=== PATIENT | female | born 1960 | race Caucasian/White ===

== ENCOUNTER 2023-02-12 11:09 | Outpatient (CLI) | payer OTHER, SELFPAY ==
--- NOTE | ~2023-02-12 | XR_ITS ---
XR elbow LT min 3V 02/12/2023 11:56 Indication: Left elbow pain Procedure: 4 views left elbow Comparison: No prior studies for comparison. Findings: There is a chronic fracture/dislocation of the elbow with sideplate and screws transfixing a displaced ulnar. No significant soft tissue abnormality. No foreign bodies. 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 Reviewed, dictated and finalized at location L. 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
[2023-02-12 11:46] LABS: Basophils Absolute Auto 0.01 K/mm3 (0.00-0.10); Basophils Percent Auto 0.2 % (0.0-1.0); Eosinophils Absolute Auto 0.02 K/mm3 (0.02-0.50); Eosinophils Percent Auto 0.3 % (1.0-6.0); Hematocrit 36.7 % (35.0-49.0); Hemoglobin 11.6 g/dL (12.0-15.0); Immature Granulocyte Absolute 0.02 K/mm3 (0.00-0.00); Immature Granulocyte Percent A 0.3 % (0.0-0.0); Mean Corpuscular HGB Conc 31.6 g/dL (32.0-36.0); Mean Corpuscular Hemoglobin 26.5 pg (27.0-31.0); Mean Corpuscular Volume 83.8 fL (78.0-102.0); Monocytes Absolute Auto 0.48 K/mm3 (0.10-0.90); Monocytes Percent Auto 7.5 % (2.0-11.0); Neutrophils Absolute Auto 5.2 K/mm3 (1.7-7.2); Neutrophils Percent Auto 80.7 % (50.0-70.0); Platelet Count Result 165 K/mm3 (150-420); Red Blood Count 4.38 M/mm3 (4.20-5.40); Red Cell Distribution Width 15.9 % (11.6-14.4); White Blood Count 6.4 K/mm3 (4.8-10.8)
[2023-02-12 11:47] LABS: Appearance Urine Clear (Clear); Bilirubin Urine Negative (Negative); Blood Urine Negative (Negative); Color Urine Light Yellow (Yellow); Glucose Urine UA Negative (Negative); Ketones Urine Negative (Negative); Leukocyte Esterase Ur Negative (Negative); Nitrate Urine Negative (Negative); Protein Urine Negative (Negative); Urobilinogen Urine 0.2 mg/dL (0.2-1.0)
[2023-02-12 11:49] LABS: Add Urine Microscopic? NO
[2023-02-12 11:55] LABS: Creatinine Urine 29.84 mg/dL (40-278); MALB Creatinine Ratio 43.5 mg/g (0-30); Microalbumin Urine Random < 13.0 mg/L
[2023-02-12 12:00] LABS: Hemoglobin A1C 5.4 % (<5.7)
[2023-02-12 12:30] LABS: Alanine Aminotransferase 25 U/L (14-59); Albumin Level 3.1 g/dL (3.4-5.0); Alkaline Phosphatase 95 U/L (46-116); Anion Gap 5 mmol/L (8-16); Aspartate Amino Transferase 25 U/L (15-37); Bilirubin,Total 0.3 mg/dL (0.00-1.00); Blood Urea Nitrogen 19 mg/dL (7-18); Calcium 8.6 mg/dL (8.5-10.1); Carbon Dioxide 33 mmol/L (21-32); Chloride 104 mmol/L (98-108); Cholesterol 181 mg/dL (0-200); Creatine Kinase 184 U/L (26-192); Estimated Glomerular Filt Rate > 60; Glucose 82 mg/dL (70-99); HDL Direct 69 mg/dL (40-60); LDL Cholesterol Calculated 102 mg/dL (<130); Osmolality Calculated 295 mOsm/kg (285-295); Potassium 4.5 mmol/L (3.5-5.1); Sodium 142 mmol/L (136-145); Thyroid Stimulating Hormone 0.62 uIU/mL (0.36-3.74); Total Protein 6.6 g/dL (6.4-8.2); Triglycerides 52 mg/dL (0-150); Uric Acid 2.7 mg/dL (2.6-6.0)
== END 2023-02-12 11:10 | disposition home or self-care (01) ==
LOC: CHSLAB 11:16
PROVIDERS: PCP Family Medicine; Visit Provider Family Medicine
DX: E03.9 Hypothyroidism, unspecified (principal); E78.2 Mixed hyperlipidemia; R73.9 Hyperglycemia, unspecified; M10.00 Idiopathic gout, unspecified site; M25.522 Pain in left elbow; M21.822 Other specified acquired deformities of left upper arm
CPT/HCPCS: 36415; 73080; 80053; 80061; 81003; 82043; 82550; 83036; 84443; 84550; 85025

== ENCOUNTER 2023-03-09 08:34 | Emergency (ER) | payer OTHER, SELFPAY ==
[2023-03-09] VITALS (59 sets, daily range): BP systolic 67–158; BP diastolic 12–99; PULSE 107–140; RESP 20–53; TEMP 36.7–36.9; O2SAT 86–100
--- NOTE | ~2023-03-09 | CT_ITS ---
EXAMINATION: CTA chest abdomen pelvis DATE: 03/09/2023 10:44 INDICATION: Dyspnea, elevated d-dimer. Distended abdomen and abdominal pain TECHNIQUE: Computed tomography angiography (CTA) of the chest, abdomen and pelvis was performed with 100 mL Omnipaque-350 intravenous contrast timed to evaluate the pulmonary arteries. Coronal maximum i ntensity projection 3D-reconstructions were created by the technologist. Automated exposure control a nd iterative reconstruction technique were employed. Exam dose: 420.61 mGy-cm total exam DLP. COMPARISON: 03/09/2023 portable AP chest FINDINGS: There is diagnostic contrast enhancement of the pulmonary arteries and no evidence of pulmo nary embolism. Mild bilateral apical pulmonary scarring Minimal tree-in-bud infiltrate in the right upper lobe. Minimal dependent atelectasis in the lower jimbo ng zones, left greater than right. Normal heart size. No pericardial or pleural effusion. No thoracic aortic aneurysm or dissection. No hilar or mediastinal mass lesion or lymphadenopathy. There is extensive fluid in the thoracic esophagus, the middle and distal thirds of the esophagus com pletely filled with fluid, with an air-fluid level in the upper third of the esophagus. Moderate sized hiatal hernia. Status post cholecystectomy. No hepatic, splenic, pancreatic, and adrenal or suspicious renal space-occupying mass lesion is evide nt. There is anterior scarring of the upper pole right kidney and associated approximately 2.4 mm calcifi cation. Approximately 5 mm upper pole right renal cyst. Small focal scar at the posterior lateral lower pole of the left kidney. No hydronephrosis. No abdominal aortic aneurysm. No intraperitoneal or retroperitoneal or pelvic mass lesion or adenopat hy is evident. There is prominent distention of the urinary bladder. No bladder wall thickening is evident. The uter us and adnexal areas appear unremarkable. There is a prominent amount of fecal material in the colon and prominent gaseous distention in particular of the right and transverse colon and splenic flexure. There are fluid levels in the right colon. There are small bowel air-fluid levels. There is mild ascites with fluid in the paracolic gutters and dependent pelvis primarily. No suspicious osteolytic or osteoblastic lesions are noted. IMPRESSION: No evidence of pulmonary embolism Minimal tree-in-bud infiltrate of right upper lobe Prominent fluid distention of the esophagus Moderate hiatal hernia Status post cholecystectomy Mild bilateral renal scarring, greater on the right Fluid levels in the small and large bowel, suggesting enterocolitis No apparent bowel obstruction or any evidence of intraperitoneal free air Mild ascites Reviewed, dictated and finalized at Location A. Reviewed, dictated and finalized at location A. NDER HONER
--- NOTE | ~2023-03-09 | CT_ITS ---
EXAMINATION: CT brain wo con DATE: 03/09/2023 10:43 INDICATION: Overdose. Altered mental status. TECHNIQUE: Computed tomography (CT) of the head was performed without intravenous contrast. The mA wa s adjusted according to patient size. Iterative reconstruction technique was employed. Exam dose: 83 2.33 mGy-cm total exam DLP. COMPARISON: None FINDINGS: Bilateral carotid siphon internal carotid artery calcifications. No intracranial mass lesion or hemorrhage or cerebrovascular accident, midline shift or mass effect i s detected. Normal ventricular size. No subdural or epidural hematoma. The frontal sinuses are not developed. The paranasal sinuses and mastoid air cells are otherwise unre markable. No fracture or bone destruction of the cranial vault. IMPRESSION: Cerebral atherosclerosis No skull fracture or acute intracranial finding Reviewed, dictated and finalized at Location A. Reviewed, dictated and finalized at location A. JEWELRY SALES ASSOCIATE
--- NOTE | ~2023-03-09 | XR_ITS ---
XR chest 1V portable DATE: 03/09/2023 09:46 INDICATION: Dyspnea. Elevated d-dimer. TECHNIQUE: Portable AP chest on 03/09/2023 0946 hours COMPARISON: 03/09/2023 CTA chest abdomen pelvis is not available at this time. FINDINGS: Normal heart size. No hilar or mediastinal enlargement. There may be minimal infiltrate or atelectasis at the lung bases but the lungs otherwise appear clear . No pleural effusion or pulmonary vascular congestion or pneumothorax is detected. Mild thoracic levoscoliosis. There is evidence of vertebroplasty at T10 level. Status post cholecystectomy. IMPRESSION: Possible minimal infiltrate or atelectasis at the lung bases; otherwise no active cardiop ulmonary disease Reviewed, dictated and finalized at location A. STANT FILM EDITOR IMPRESSION: Possible minimal infiltrate or atelectasis at the lung bases; other powell no active cardiopulmonary disease
--- NOTE | 2023-03-09 08:44 | ECG_ITS ---
Measurements Intervals [place] Rate: 114 P: 57 TX: 120 QRS: 73 QRSD: 72 T: 66 QT: 316 QTc: 437 Interpretive Statements SINUS TACHYCARDIA POSSIBLE LEFT ATRIAL ENLARGEMENT [-0.1mV P-WAVE IN V1/V2] ABNORMAL RHYTHM ECG NO PREVIOUS ECG AVAILABLE FOR COMPARISON Electronically Signed On 03-09-2023 9:13:14 BATCH ANALYST by Leann Hamm M.D.
--- NOTE | 2023-03-09 08:45 | PC.NURSE ---
after patient became more awake she was able to tell RN that she took her norco last night and this morning, per patient's medication administration list it just shows she recived the medication last night.
[2023-03-09] MEDS: ONDANSETRON INJ 4 MG/2 ML VIAL IV PUSH (08:47)
[2023-03-09] MEDS: NALOXONE HCL INJ 2 MG/2 ML AMP IV PUSH ×2 (08:47→10:48)
[2023-03-09] MEDS: SODIUM CHLORIDE 0.9% IV 1,000 ML 999 ML IV CONT ×3 (08:48→12:30)
--- NOTE | 2023-03-09 09:00 | PC.NURSE ---
Patient asked for urine, states she cannot pee at this time.
[2023-03-09 09:33] LABS: Basophils Absolute Auto 0.07 K/mm3 (0.00-0.10); Basophils Percent Auto 0.4 % (0.0-1.0); Eosinophils Percent Auto 0.5 % (1.0-6.0); Hematocrit 46.1 % (35.0-49.0); Hemoglobin 13.6 g/dL (12.0-15.0); Immature Granulocyte Absolute 0.08 K/mm3 (0.00-0.00); Immature Granulocyte Percent A 0.4 % (0.0-0.0); Lymphocytes Absolute Auto 0.66 K/mm3 (1.10-4.50); Lymphocytes Percent Auto 3.5 % (18.0-42.0); Mean Corpuscular HGB Conc 29.5 g/dL (32.0-36.0); Mean Corpuscular Hemoglobin 26.5 pg (27.0-31.0); Mean Corpuscular Volume 89.9 fL (78.0-102.0); Mean Platelet Volume 11.3 fl (9.2-11.8); Monocytes Percent Auto 9.5 % (2.0-11.0); Neutrophils Absolute Auto 16.1 K/mm3 (1.7-7.2); Neutrophils Percent Auto 85.7 % (50.0-70.0); Platelet Count Result 217 K/mm3 (150-420); Red Blood Count 5.13 M/mm3 (4.20-5.40); Red Cell Distribution Width 15.6 % (11.6-14.4); White Blood Count 18.9 K/mm3 (4.8-10.8)
[2023-03-09 09:37] LABS: Base Excess ABG -6.4 mmol/L (0-2); Device NASAL CANNULA; HCO3 ABG 19.5 mmol/L (23-29); Modified Allen's Test Pass; Oxygen Content ABG 18.4 %vol (16.0-22.0); PCO2 ABG 40.5 mmHg (35-45); PO2 ABG 144.1 mmHg (80-90); Site Drawn RIGHT RADIAL; Total Hemoglobin 13.6 g/dL (12.0-18.0)
[2023-03-09 09:53] LABS: Alanine Aminotransferase 27 U/L (14-59); Albumin Level 2.1 g/dL (3.4-5.0); Alkaline Phosphatase 65 U/L (46-116); Anion Gap 8 mmol/L (8-16); Aspartate Amino Transferase 45 U/L (15-37); Bilirubin,Total 0.4 mg/dL (0.00-1.00); Blood Urea Nitrogen 31 mg/dL (7-18); Calcium 8.4 mg/dL (8.5-10.1); Carbon Dioxide 20 mmol/L (21-32); Chloride 105 mmol/L (98-108); Estimated Glomerular Filt Rate 37; Glucose 131 mg/dL (70-99); NT Pro B Type Natriuretic Pept 606 pg/mL (0-125); Osmolality Calculated 284 mOsm/kg (285-295); Potassium 4.8 mmol/L (3.5-5.1); Sodium 133 mmol/L (136-145); Total Protein 5.8 g/dL (6.4-8.2); Troponin I 5.5 ng/L (0.00-60.4)
[2023-03-09 09:54] LABS: INR 1.1; Partial Thromboplastin Time 30.8 SEC (23.90-30.70)
[2023-03-09 09:56] LABS: D Dimer 28.18 mg/L (0.19-0.50)
--- NOTE | 2023-03-09 09:56 | PC.NURSE ---
lab reports ddimer of 28.18. ERP made aware.
--- NOTE | 2023-03-09 10:00 | PC.NURSE ---
patient placed on bedside commode, able to ambulate without difficulty, unable to urinate at this time.
[2023-03-09 10:02] LABS: Lactic Acid Reflex 3.5 mmol/L (0.4-2.0)
[2023-03-09 10:13] LABS: Influenza A QL RT-PCR Negative (Negative); Influenza B QL RT-PCR Negative (Negative); RSV RNA, RT-PCR Negative (Negative); SARS-CoV-2 RNA PCR Negative (Negative)
--- NOTE | 2023-03-09 10:18 | PC.NURSE ---
Patient taken down to Ct.
[2023-03-09 10:31] LABS: Acetaminophen < 2 ug/mL (10-30)
[2023-03-09 10:32] LABS: Thyroid Stimulating Hormone 2.49 uIU/mL (0.36-3.74)
--- NOTE | 2023-03-09 10:54 | PC.NURSE ---
Addendum entered by Courtney De León RN 03/09/23 10:55: Note to be back timed to 1045 when patient arrived back in room. Original Note: Patient back in room from Ct, sleepy at this time erp at bedside states to give another 2mg iv narcan, order will be placed, 2nd liter of NS to be started, patient's blood pressure is back to 149/74.
--- NOTE | 2023-03-09 12:07 | ED.OVERDOSE ---
HPI - Overdose General Chief Complaint: Overdose Stated Complaint: Unresponsive Time Seen by Provider: 03/09/23 08:43 Source: patient and EMS Mode of arrival: EMS Limitations: altered mental status History of Present Illness HPI Narrative: this is 62 year female brought in by EMS decreased responsiveness with dyspnea depression has a history of back took hydrocodone, the patient received Narcan and via EMS. Initial saturations were in the 80s and was non-rebreather and initial blood pressure readings were 90 systolic. Patient is awake and alert and follows commands and knows where she is located, states that she has chronic back pain and took hydrocodone earlier this morning. She has some abdominal pain and distension with no dysuria no hematuria no chest pain. The patient albuterol and tobacco abuse are suggesting that she has COPD, has a history of IBS is in currently on Bentyl and history of hypothyroidism with chronic back pain that she takes hydrocodone. Patient has a mass psych history and is on citalopram, diazepam Lamictal. central line placed femoral , and intubation successful 1st pass with 24cm the at the teeth. MD complaint: accidental overdose Onset (ago): hour(s) Related Data Home Medications Medication Instructions Recorded Confirmed acetaminophen 325 mg tablet 650 mg PO Q4-6H PRN Pain 03/09/23 03/09/23 albuterol sulfate 90 mcg/actuation 2 puff inhalation Q4-6H PRN 03/09/23 03/09/23 aerosol inhaler Shortness Of Breath Or Wheezing budesonide-formoterol HFA 80 2 puff inhalation BID 03/09/23 03/09/23 mcg-4.5 mcg/actuation aerosol inhaler (Symbicort) citalopram 10 mg tablet 10 mg PO DAILY 03/09/23 03/09/23 citalopram 20 mg tablet 20 mg PO DAILY 03/09/23 03/09/23 diazepam 5 mg tablet 5 mg PO QID 03/09/23 03/09/23 dicyclomine 20 mg tablet 10 mg PO DAILY 03/09/23 03/09/23 dicyclomine 20 mg tablet 20 mg PO TID PRN Abdominal Pain 03/09/23 03/09/23 food supplemt, lactose-reduced 1 ea PO TID 03/09/23 03/09/23 0.04 gram-1.05 kcal/mL oral liquid (Ensure Original) gabapentin 300 mg capsule 300 mg PO HS 12/23/23 12/23/23 hydrocodone 10 mg-acetaminophen 1 tablet PO TID PRN Pain 03/09/23 03/09/23 325 mg tablet hydroxyzine pamoate 25 mg capsule 25 mg PO QID PRN Anxiety 03/09/23 03/09/23 lamotrigine 100 mg tablet 100 mg PO BID 03/09/23 03/09/23 levothyroxine 50 mcg tablet 50 mcg PO DAILY 03/09/23 03/09/23 meclizine 25 mg tablet 25 mg PO TID PRN Dizziness Or 03/09/23 03/09/23 Vertigo naproxen 500 mg tablet 500 mg PO BID PRN Pain 03/09/23 03/09/23 omeprazole 10 mg capsule,delayed 10 mg PO DAILY 03/09/23 03/09/23 release solifenacin 5 mg tablet 5 mg PO DAILY 03/09/23 03/09/23 tizanidine 4 mg tablet 4 mg PO TID PRN Muscle Spasm 03/09/23 03/09/23 Allergies Allergy/AdvReac Type Severity Reaction Status Date / Time morphine Allergy Unknown Verified 03/09/23 08:51 Sulfa (Sulfonamide Allergy Unknown Verified 03/09/23 08:51 Antibiotics) Review of Systems Review of Systems: All systems reviewed & are unremarkable except as noted in HPI and below PMFSH Past Medical History Medical History Chronic back pain COPD (chronic obstructive pulmonary disease) Depression IBS (irritable bowel syndrome) Exam Const: General: alert and ill appearing Nutritional Appearance: thin Limitations: altered mental status and physical limitations HENMT: Head: normal to inspection Eyes: Conjunctivae: conjunctivae normal Pupils: Equal, round and reactive pupils present EOM: EOMs intact bilaterally Neck: Neck: normal visual inspection, no lymphadenopathy and no meningeal signs Chest: Chest palpation & inspection: normal inspection of the chest Resp: Effort & Inspection: normal respiratory effort Auscultation: clear to auscultation bilaterally Cardio: Rate: tachycardic Rhythm: regular rhythm GI: GI Palp: Yes Soft to palpation and Yes Tenderness to palpation
[2023-03-09 12:30] LABS: Reflex Lactic Acid Yes or No Add Lactic
[2023-03-09] MEDS: IPRATROPIUM 0.5 MG/ALBUTEROL SULFATE 2.5 MG AMPUL.NEB 3 ML INHALATION (12:30)
--- NOTE | 2023-03-09 12:39 | PC.NURSE ---
ERP on phone with commercial counsel at [place].
[2023-03-09 13:16] LABS: Lactic Acid 3.1 mmol/L (0.4-2.0)
[2023-03-09] MEDS: AZITHROMYCIN 500 MG/NS 250 ML 500 MG/250 ML BAG 250 MG IVPB (13:40)
[2023-03-09 13:59] LABS: Appearance Urine Clear (Clear); Bilirubin Urine Negative (Negative); Blood Urine Negative (Negative); Color Urine Yellow (Yellow); Glucose Urine UA Negative (Negative); Ketones Urine Negative (Negative); Leukocyte Esterase Ur Negative LEU/UL (Negative); Nitrate Urine Negative (Negative); Protein Urine Trace (Negative); pH Urine 6.5 (5.0-8.0)
[2023-03-09 14:05] LABS: Add Urine Microscopic? YES; Bacteria Urine Rare /hpf; RBC Urine None seen /hpf (0-2); Squamous Epithelial Cell Urine Rare /hpf (Few); WBC Urine None seen /hpf (0-3)
[2023-03-09 14:07] LABS: Amphetamine Screen Urine Negative (Negative); Barbiturate Screen Urine Negative (Negative); Benzodiazepines Screen Urine Negative (Negative); Cannabinoid Screen Urine Negative (Negative); Cocaine Screen Urine Negative (Negative); Methadone Screen Urine Negative (Negative); Opiate Screen Urine Positive (Negative); Phencyclidine Screen Urine Negative (Negative)
--- NOTE | 2023-03-09 14:35 | PC.NURSE ---
Patient intubated with size 7 tube and marked 24 at the lip.
--- NOTE | 2023-03-16 13:05 | PC.NURSE ---
blood culture noted. no growth after 5 days
== END 2023-03-09 14:45 | disposition short-term general hospital (02) ==
PROVIDERS: Emergency Provider Emergency Medicine
DX: R06.03 Acute respiratory distress (principal); T50.901A Poisoning by unspecified drugs, medicaments and biological substances, accidental (unintentional), initial encounter; I95.9 Hypotension, unspecified; G89.29 Other chronic pain; M54.9 Dorsalgia, unspecified; K58.9 Irritable bowel syndrome, unspecified; J44.9 Chronic obstructive pulmonary disease, unspecified; Z79.891 Long term (current) use of opiate analgesic; Z79.899 Other long term (current) drug therapy; Z20.822 Contact with and (suspected) exposure to COVID-19
CPT/HCPCS: 31500; 36415; 36556; 36600; 70450; 71045; 71275; 74174; 80053; 80307; 81001; 82805; 83605; 83735; 83880; 84443; 84484; 85025; 85380; 85610; 85730; 87040; 87637; 93005; 94640; 96361; 96365; 96367; 96375; 96376; 99285; C1751; J0456; J0696; J2310; J2405; J7030; Q9967

== ENCOUNTER 2023-03-09 15:59 | Inpatient (IN) | payer OTHER, SELFPAY ==
[2023-03-09] VITALS (40 sets, daily range): BP systolic 54–158; BP diastolic 19–139; PULSE 132–152; RESP 24–33; TEMP 36.8–37.9; O2SAT 91–100; BMI 19.5
--- NOTE | ~2023-03-09 | CT_ITS ---
EXAMINATION: CT abdomen pelvis wo con DATE: 03/09/2023 17:30 INDICATION: Abdominal distention TECHNIQUE: Computed tomography (CT) of the abdomen and pelvis was performed without intravenous contr ast. The dose-length product was 250.43 mGy-cm. Automated exposure control and iterative reconstructi on technique were employed. COMPARISON: CT dated 03/09/2023. FINDINGS: Heart size normal. Dependent atelectasis. NG tube in the stomach. Persistent fecal impactio n of the colon which is distended. There is no free air in the lower abdomen extending into the ingui nal canal, suspicious for bowel perforation. Sosa catheter present in decompressed bladder. There is atherosclerosis of the aorta without aneurysm. No lymphadenopathy. Status post cholecystectomy. The liver, spleen, pancreas, adrenal glands and kidneys are unremarkable . No acute osseous abnormality. No acute osseous abnormality. IMPRESSION: 1. Interval development of free air adjacent to the cecum, suspicious for bowel perforation. 2: Fecal impaction of the colon without obstruction. 3: Developing small pleural effusions, left greater than right. Dr. Cruz Pittman discussed with Tabby Ocasio, the ICU director at 03/09/2023 17:37 ADOBE CQ DEVELOPER. Reviewed, dictated and finalized at location A. E CQ DEVELOPER
--- NOTE | ~2023-03-09 | XR_ITS ---
XR chest 1V portable DATE: 03/11/2023 05:39 INDICATION: Dyspnea, intubation TECHNIQUE: Portable AP chest on 03/11/2023 at 0522 hours COMPARISON: 03/06/2023 portable AP chest FINDINGS: ET tube 6 cm above matteo. NG tube in stomach, proximal side-port approximately 3.5 cm to 4 cm distal to the diaphragmatic hiatus. Bilateral hyperinflation suggesting obstructive airways disease. There is mild pulmonary vascular congestion and redistribution, mild bilateral pulmonary infiltrates and small bilateral pleural effusions, left greater than right. There is mild improvement of left low er lobe infiltrate or atelectasis since 03/06/2023 IMPRESSION: Mild improvement of left lower lobe infiltrate or atelectasis since 03/06/2023 Reviewed, dictated and finalized at location A. ULTING MANAGER
--- NOTE | ~2023-03-09 | XR_ITS ---
EXAMINATION: XR chest 1V portable DATE: 03/17/2023 05:43 INDICATION: Mechanical ventilation. TECHNIQUE: A single frontal view of the chest was obtained. COMPARISON: Chest single view 03/16/2023 FINDINGS: There is mild scarring at the lung apices. There are small pleural effusions. There are air space opacities in right lower lung zone and left mid and lower lung zones. No pneumothorax. The hear t size is normal. The endotracheal tube tip is 3.5 cm above the matteo. The nasogastric tube tip is i n the stomach. There are surgical clips and skin vineet overlying the abdomen. IMPRESSION: 1. Airspace opacities in right lower lung zone and left mid and lower lung zones with worsening on th e left, consistent with atelectasis versus pneumonia. 2. Stable small pleural effusions. Reviewed, dictated and finalized at location A. RINTENDENT OF SCHOOLS IMPRESSION: 1. Airspace opacities in right lower lung zone and left mid and lower lung zone s with worsening on the left, consistent with atelectasis versus pneumonia. 2. Stable small pleural effusions.
--- NOTE | ~2023-03-09 | CT_ITS ---
EXAMINATION: CT abdomen pelvis w con DATE: 03/28/2023 13:56 INDICATION: Leukocytosis, necrotic large bowel following total colectomy TECHNIQUE: Computed tomography (CT) of the abdomen and pelvis was performed with 100 CC Omnipaque 350 intravenous contrast. Automated exposure control and iterative reconstruction technique were employe d. Exam dose: 234.24 mGy-cm total exam DLP. COMPARISON: 03/24/2023 CT abdomen pelvis 03/27/2023 obstructive series FINDINGS: Bilateral prominent dependent lower lobe atelectasis and/or consolidation. Bilateral pleura l effusions, left greater than right. NG tube tip in distal stomach. Status post cholecystectomy. The liver, spleen, pancreas, and adrenal glands are unremarkable except for hepatic steatosis. No hiwot e duct or pancreatic duct dilatation. Normal morphology of the adrenal glands. No left renal mass lesion. 5 mm upper pole right renal cyst. Mild upper pole right renal scarring. No urinary tract calculus or hydroureteronephrosis is evident. There is a Sosa catheter in air within the urinary bladder lumen. There is mild ascites. There is fluid in the endometrial cavity of the uterus. Partial colectomy. Right ileostomy. There is diminished distention of the small bowel since 03/24/2023 IMPRESSION: Diminished small bowel dilatation since 03/24/2023 Status post colectomy, ileostomy Mild ascites NG tube in distal stomach 5 mm upper pole right renal cyst Reviewed, dictated and finalized at Location A. Reviewed, dictated and finalized at location L. OR FRONT END DEVELOPER
--- NOTE | ~2023-03-09 | XR_ITS ---
EXAMINATION: XR chest 1V portable DATE: 03/16/2023 05:32 INDICATION: Respiratory failure. TECHNIQUE: A single frontal view of the chest was obtained. COMPARISON: Chest single view 03/15/2023, CT abdomen and pelvis 03/09/2023 FINDINGS: There is mild scarring at the lung apices. There is a diffuse interstitial pattern in the l ungs. There are airspace opacities in right middle lobe and left lower lobe. There are small pleural effusions. No pneumothorax. The heart size is normal. The endotracheal tube tip is 3.3 cm above the c dejon. The nasogastric tube tip is in the stomach. Skin vineet overlie the abdomen. Surgical clips i n the right upper quadrant are likely from cholecystectomy. IMPRESSION: 1. Mild pulmonary edema. 2. Airspace opacities in right middle lobe and left lower lobe, consistent with atelectasis versus pn eumonia. 3. Stable small pleural effusions. Reviewed, dictated and finalized at location A. STRIAL GAS SERVICER SUPERVISOR IMPRESSION: 1. Mild pulmonary edema. 2. Airspace opacities in right middle lobe and left lower lobe, consistent with atelectasis versus pneumonia. 3. Stable small pleural effusions.
--- NOTE | ~2023-03-09 | XR_ITS ---
XR chest ET placement 03/09/2023 16:12 Indication: Endotracheal tube placement Procedure: AP portable chest Comparison: 03/09/2023 Findings: Endotracheal tube tip 2.3 cm above the matteo. NG tube tip at the level of the diaphragm ne ar the expected location of the GE junction. Left basilar consolidation may represent atelectasis or developing pneumonia. Subtle infiltrates of the right mid thorax. No acute osseous abnormality. There are cholecystectomy clips. Impression: 1: Developing infiltrates of the right mid and left lower lung, suspicious for pneumonia. Reviewed, dictated and finalized at location A. RRAL CLERK Impression: 1: Developing infiltrates of the right mid and left lower lung, suspicious for pneumonia.
--- NOTE | ~2023-03-09 | XR_ITS ---
EXAMINATION: XR chest 1V portable DATE: 03/25/2023 18:45 INDICATION: Increasing shortness of breath TECHNIQUE: frontal view of the chest was obtained. COMPARISON: Chest radiograph dated 03/17/[address] abdomen and pelvis dated 03/24/2023 FINDINGS: Eventration along the medial right hemidiaphragm. Mild opacities at the left lower lung zone and at t he medial right lung base. No pulmonary edema, pleural effusion or pneumothorax. The cardiomediastina l silhouette is normal. Surgical clips and skin vineet in the upper abdomen. IMPRESSION: 1. Mild opacities at the bilateral lower lung zones which could represent pneumonia or more likely at electasis given appearance on prior CT. Reviewed, dictated and finalized at location A. ICAL PLANT MANAGER IMPRESSION: 1. Mild opacities at the bilateral lower lung zones which could represent pneum onia or more likely atelectasis given appearance on prior CT.
--- NOTE | ~2023-03-09 | CT_ITS ---
CT of the Abdomen and Pelvis: Indication: Abdominal pain, status post colectomy Technique: 2.5 mm axial scans were obtained through the abdomen and pelvis following intravenous adm inistration of 100 cc of Omnipaque 350. Dose reduction technique was used on this scan by utilizing a utomated exposure control and iterative reconstruction technique. The dose-length product (DLP) was 2 19.84 mGy-cm. COMPARISON: 03/09/2023 Findings: Scans through the lung bases demonstrated small bilateral pleural effusions with bibasilar atelectatic change.. The liver, spleen, pancreas, adrenals and left kidney are within normal limits. Probable mild right h ydronephrosis present. Cholecystectomy clips are present. No evidence of aortic aneurysm. No lymphad enopathy. Patient is status post extensive colectomy, with ileostomy present. There is extensive small bowel di latation as well as distention of the stomach. Transition point present in the right mid abdomen (axi al image 99). There is moderate abdominopelvic ascites with diffuse mesenteric edema. Images through the pelvis were performed. Urinary bladder is markedly distended, with small intralumi nal bubble of air. There is apparent fluid within the endometrial cavity versus prominent endometrium .. Impression: Status post interval colectomy with ileostomy present. Extensive small bowel dilatation and gastric d istention without transition point at the right mid abdomen, compatible with small bowel obstruction. Moderate abdominopelvic ascites and diffuse mesenteric edema. Small bilateral pleural effusions, with bibasilar atelectatic change. Probable mild right hydronephrosis. Fluid in the endometrial cavity versus prominent endometrium. Correlate clinically. Consider pelvic u ltrasound as indicated. Reviewed, dictated and finalized at [facility]. FABRIC CUTTER Impression: Status post interval colectomy with ileostomy present. Extensive small bowel di latation and gastric distention without transition point at the right mid abdom en, compatible with small bowel obstruction. Moderate abdominopelvic ascites and diffuse mesenteric edema. Small bilateral pleural effusions, with bibasilar atelectatic change. Probable mild right hydronephrosis. Fluid in the endometrial cavity versus prominent endometrium. Correlate clinica lly. Consider pelvic ultrasound as indicated.
--- NOTE | ~2023-03-09 | XR_ITS ---
XR chest ET placement, XR abdomen gastric tube rechec 03/09/2023 16:16 Indication: Endotracheal and NG tubes repositioning Procedure: AP portable chest and limited portable KUB Comparison: 03/09/2023 Findings: Endotracheal tube tip 4 cm above the matteo. Stable bilateral airspace disease, suspicious for pneumonia. Possible small left effusion. No pneumothorax. NG tube has been advanced into the stomach. Impression: 1: Persistent patchy bilateral airspace disease, compatible with pneumonia. Reviewed, dictated and finalized at location A. ESSIONAL WRESTLER Impression: 1: Persistent patchy bilateral airspace disease, compatible with pneumonia. Impression: 1: Persistent patchy bilateral airspace disease, compatible with pneumonia.
--- NOTE | ~2023-03-09 | XR_ITS ---
XR chest 1V portable DATE: 03/10/2023 05:47 INDICATION: Intubation. Abdominal surgery. TECHNIQUE: Portable AP chest on 03/06/2023 at 0513 hours COMPARISON: 03/09/2023 portable AP chest at 1612 hours 03/09/2029 portable AP chest at 0946 hours FINDINGS: Tip of ET tube is 6.3 cm above matteo; ideal range is 2-5 cm. NG tube in body of stomach, proximal side-port approximately 3.5 cm beyond the diaphragmatic hiatus. Bilateral hyperinflation. There are bilateral Sadaf B-lines, not present yesterday at 0946 hours, consistent with pulmonary in terstitial edema. Slight bilateral pleural effusions are suggested. Mild infiltrate or atelectasis is noted in the right mid to upper and bilateral lower lungs, most prominent left lower lobe. Normal heart size. Diffuse osteopenia. Postoperative change of the abdomen is noted. IMPRESSION: Pulmonary interstitial edema, patchy bilateral pulmonary infiltrates and/atelectasis ET tube tip 6.3 cm above matteo; ideal range is 2-5 cm NG tube in stomach Reviewed, dictated and finalized at location A. AGER IMPRESSION: Pulmonary interstitial edema, patchy bilateral pulmonary infiltrate s and/atelectasis ET tube tip 6.3 cm above matteo; ideal range is 2-5 cm NG tube in stomach
--- NOTE | ~2023-03-09 | XR_ITS ---
XR abdomen gastric tube insert DATE: 03/27/2023 15:46 INDICATION: NG tube placement TECHNIQUE: Portable AP view on 03/27/2023 at 1539 hours COMPARISON: None FINDINGS: There is a nasogastric tube within the body of the stomach, the proximal side-port approxim ately 9.5 cm distal to the diaphragmatic hiatus. Cervical ribs, right upper quadrant likely due to cholecystectomy. Skin vineet overlie the mid abdom en. IMPRESSION: NG tube in body of stomach Reviewed, dictated and finalized at Location A. Reviewed, dictated and finalized at location B. MARKETER SUPERVISOR IMPRESSION: NG tube in body of stomach
--- NOTE | ~2023-03-09 | XR_ITS ---
EXAMINATION: XR chest 1V portable DATE: 03/13/2023 06:05 INDICATION: Intubation. TECHNIQUE: A single frontal view of the chest was obtained. COMPARISON: Chest single view 03/12/2023 FINDINGS: There are airspace opacities in all lung zones bilaterally, right worse than left. There ar e small pleural effusions. No pneumothorax. The heart size is normal. The endotracheal tube tip is 4. 4 cm above the matteo. The nasogastric tube tip is in the stomach. IMPRESSION: 1. Stable diffuse lung disease, right worse than left, consistent with pneumonia. 2. Stable small pleural effusions. Reviewed, dictated and finalized at location E. SCHOOL PHYSICAL EDUCATION TEACHER IMPRESSION: 1. Stable diffuse lung disease, right worse than left, consistent with pneumoni a. 2. Stable small pleural effusions.
--- NOTE | ~2023-03-09 | XR_ITS ---
EXAM: XR abdomen gastric tube insert DATE: 03/27/2023 17:32 HISTORY: NG placemenT . COMPARISON: 03/27/2023 at 3:39 PM. FINDINGS: Atelectasis/scarring in the lung bases. NG tube, tip and side port project over the stomac h. Midline surgical skin vineet. Cholecystectomy clips. Normal bowel gas pattern. No organomegaly. N o abnormal abdominal calcification. Regional bones and soft tissues normal for age. IMPRESSION: NG tube, in good position. Reviewed, dictated and finalized at location K. CTOR E LEARNING IMPRESSION: NG tube, in good position.
--- NOTE | ~2023-03-09 | XR_ITS ---
EXAMINATION: XR chest 1V portable DATE: 03/12/2023 05:51 INDICATION: Intubation. TECHNIQUE: A single frontal view of the chest was obtained. COMPARISON: Chest single view 03/11/2023, CT chest 03/09/2023 FINDINGS: There is mild scarring at the lung apices. There are airspace opacities in all right lung z ones. There are airspace opacities in left lower lobe. There are small pleural effusions. No pneumoth orax. The heart size is normal. The endotracheal tube tip is 2.9 cm above the matteo. The nasogastric tube tip is in the stomach. IMPRESSION: 1. Worsened airspace opacities in right lung and left lower lung zone, consistent with atelectasis ve rsus pneumonia. 2. Small pleural effusions. Reviewed, dictated and finalized at location E. FACTURING SCHEDULER IMPRESSION: 1. Worsened airspace opacities in right lung and left lower lung zone, consiste nt with atelectasis versus pneumonia. 2. Small pleural effusions.
--- NOTE | ~2023-03-09 | XR_ITS ---
EXAMINATION: XR chest 1V portable DATE: 03/14/2023 05:32 INDICATION: Respiratory failure. TECHNIQUE: A single frontal view of the chest was obtained. COMPARISON: Chest single view 03/13/2023, chest CT 03/09/2023 FINDINGS: There is mild scarring at the lung apices. There are airspace opacities in right lung and l eft lower lung zone. There is a small left pleural effusion. No pneumothorax. The heart size is patric l. There is a moderate-sized hiatal hernia. The endotracheal tube tip is 5.0 cm above the matteo. The nasogastric tube tip is beyond the inferior margin of the radiograph, but at least to the stomach. IMPRESSION: 1. Stable airspace opacities in right lung and left lower lung zone, consistent with pneumonia versus asymmetric pulmonary edema. 2. Stable small left pleural effusion. 3. Moderate-sized hiatal hernia. Reviewed, dictated and finalized at location E. GATION SUPERVISOR
--- NOTE | ~2023-03-09 | XR_ITS ---
EXAMINATION: XR chest 1V portable DATE: 03/15/2023 05:54 INDICATION: Respiratory failure. TECHNIQUE: A single frontal view of the chest was obtained. COMPARISON: Chest single view 03/14/2023 FINDINGS: There are small pleural effusions. There is a diffuse interstitial pattern in the lungs. Th ere are airspace opacities in the perihilar regions. No pneumothorax. The heart size is normal. The e ndotracheal tube tip is 2.8 cm above the matteo. The nasogastric tube tip is in the stomach. Skin sta ples overlie the abdomen. Surgical clips in the right upper quadrant are likely from cholecystectomy. IMPRESSION: 1. Stable diffuse lung disease, likely moderate pulmonary edema. 2. Stable small pleural effusions. Reviewed, dictated and finalized at location A. F APPRAISER
--- NOTE | ~2023-03-09 | XR_ITS ---
EXAMINATION: XR abdomen obstructive series DATE: 03/27/2023 13:31 INDICATION: Nausea and vomiting. TECHNIQUE: Upright and supine views of the abdomen on 3 radiographs were obtained. COMPARISON: CT abdomen and pelvis 03/24/2023 FINDINGS: The stomach and proximal duodenum are distended. The colon is normal in caliber. Skin stapl es are noted. Surgical clips in the right upper quadrant are likely from cholecystectomy. No free int raperitoneal gas. IMPRESSION: 1. Distended stomach and proximal duodenum, likely adynamic ileus. Reviewed, dictated and finalized at location A. CHER AROUND
--- NOTE | ~2023-03-09 | XR_ITS ---
EXAMINATION: XR chest 1V portable Exam Date/Time: 03/14/2023 14:55 SET KEY DRIVER HISTORY: ET tube placement check Comparison: 03/14/2023 5:17 AM. RESULT: Lines, tubes, and devices: Endotracheal tube terminating 4.7 cm above the matteo. NG tube, tip and s colette port project over the stomach. Lungs and pleura: Increasing patchy reticular and groundglass opacities. Increased subsegmental airs pace disease in the left lung base. Persistent mild bilateral costophrenic angle blunting. Cardiomediastinal silhouette: Stable. Other: No acute osseous or upper abdominal finding. IMPRESSION: Endotracheal tube terminates 4.7 cm above the matteo. Worsening diffuse airspace opacities may represent edema or infection. Likely bibasilar atelectasis, increasing in the left lung base where a focus of infection or aspiration is not excluded. Small bila teral effusions. Reviewed, dictated and finalized at location K. KEY DRIVER IMPRESSION: Endotracheal tube terminates 4.7 cm above the matteo. Worsening diffuse airspace opacities may represent edema or infection. Likely b ibasilar atelectasis, increasing in the left lung base where a focus of infecti on or aspiration is not excluded. Small bilateral effusions.
--- NOTE | ~2023-03-09 | XR_ITS ---
XR abdomen gastric tube insert 03/09/2023 16:12 Indication: Evaluate NG tube Procedure: KUB Comparison: No prior studies for comparison. Findings: NG tube tip in the distal aspect of the esophagus near the GE junction. Recommend advanceme nt. Large amount of retained fecal material in the colon with moderate distention of the more proxima l colon. There is an intravascular catheter on the right extending from the pelvis. There is residual contrast in nondilated renal collecting systems. Impression: 1: Fecal impaction of the distal colon and rectum with moderate distention of the more proximal colon . 2: NG tube tip at the GE junction. Recommend advancement. Reviewed, dictated and finalized at location A. RAFT MAINTENANCE SUPERVISOR Impression: 1: Fecal impaction of the distal colon and rectum with moderate distention of t he more proximal colon. 2: NG tube tip at the GE junction. Recommend advancement.
[2023-03-09 16:43] LABS: Hematocrit 48.9 % (37.0-47.0); Hemoglobin 14.6 g/dL (12.0-15.0); Mean Corpuscular HGB Conc 29.9 g/dl (32-36); Mean Corpuscular Hemoglobin 26.3 pg (26-34); Mean Corpuscular Volume 88.1 fl (80-100); Mean Platelet Volume 11.7 fl (7.4-10.4); Platelet Count Result 245 k/mm3 (150-375); Red Blood Count 5.55 M/mm3 (4.2-5.4); White Blood Count 11.9 K/mm3 (4.5-10.0)
[2023-03-09 16:53] LABS: Ammonia 189 umol/L (9-30)
[2023-03-09 16:55] LABS: Lactic Acid Reflex 3.6 mmol/L (0.7-2.0)
[2023-03-09 16:58] LABS: INR 1.1; Partial Thromboplastin Time 33.4 SECONDS (22.3-36.8)
[2023-03-09] MEDS: SODIUM CHLORIDE 0.9% IV 1,000 ML 999 ML IV CONT (17:03)
[2023-03-09 17:08] LABS: Alveolar/Arterial O2 Gradient 181.4 mmHg; Base Excess ABG -1.1 mEq/l (+/-2.0); Carboxyhemoglobin 2.3 % THb (0-2.0); Fractional Inspired Oxygen 50 %; HCO3 ABG 24.4 mEq/l (22.0-26.0); Methemoglobin ABG 0.2 %THb (0-1.5); Oxygen Saturation ABG 98.4 % (95.0-100.0); Oxyhemoglobin 96.3 % THb (90.0-100.0); PCO2 ABG 43.8 mmHg (35.0-45.0); PO2 ABG 125.8 mmHg (80.0-100.0); PO2 FiO2 Ratio Arterial Blood 2.52 %; Reduced Hemoglobin 1.2 %THb (0-5.0); Total Hemoglobin 13.9 g/dL (12.0-18.0); pH ABG 7.364 (7.350-7.450)
[2023-03-09 17:14] LABS: Alanine Aminotransferase 26 U/L (6-35); Albumin Level 2.7 g/dL (3.5-5.1); Alkaline Phosphatase 59 U/L (38-126); Anion Gap 7 mmol/L (8-16); Aspartate Amino Transferase 59 U/L (14-36); Bilirubin,Total 0.6 mg/dL (0.2-1.3); Blood Urea Nitrogen 35 mg/dL (7-17); Calcium 7.2 mg/dL (8.4-10.2); Carbon Dioxide 18 mmol/L (22-30); Chloride 113 mmol/L (98-107); Estimated Glomerular Filt Rate 41; Glucose 119 mg/dL (65-110); Lipase 112 U/L (23-300); Magnesium 2.6 mg/dL (1.6-2.3); Phosphorus 4.3 mg/dL (2.5-4.5); Potassium 6.3 mmol/L (3.4-5.0); Sodium 138 mmol/L (137-145)
--- NOTE | 2023-03-09 17:18 | PM.IMHP ---
H&P: HPI History of Present Illness Date/Time: 03/09/23 17:18 Chief Complaint: AMS, Sepsis Narrative: 62 y/o F presents here for unresponsiveness, abdominal pain, and SOB with PMH of IBS, psychiatric disorders, possible COPD (on albuterol and current smoker), MRSA, hypothyroidism, HLD, and chronic back pain. HPI obtained through chart review and provider reports. Patient presented to [facility] via EMS from [facility] EMS had been called to [facility] due to patient becoming SOB - unclear if staff or patient initiated call. At their arrival patient was talkative, hypotensive, and tachypneic. While assessing patient patient made statement that she was going numb and became unresponsive to verbal stimuli, would briefly respond to painful stimuli. O2 sat dropped to 70-80% on RA. Placed on NRB with improvement in sat to 100%. Patient then started on NS 1L bolus and given 2 mg IV of Narcan. Per EMS report, patient became more responsive and able to move around on the stretcher. At arrival to [place] ED patient remained somnolent but arousable to loud verbal stimuli and/or painful stimuli. Given additional 2 mg x2 of Narcan with continued improvement. Then able to follow commands and remains awake. Patient was then able to report that she takes hydrocodone for her chronic back pain with last dose this morning. Also complained of abdominal pain accompanied by abdominal distension. Denied any associated dysuria, hematuria, or chest pain. Reported history of IBS which she treats with Bentyl. Initial VS: HR 111, RR 30, 97% on 4L NC, 131/79. Over course of ED workup at [place] patient became more tachycardic 120-130's, more tachypneic with RR between 35-52, and BP became hypotensive with lowest reading at 67/12 despite 3L in ED and 1L per EMS. Patient was ultimately intubated and central line was placed. Workup revealed elevated white count at 18.9, stable hemoglobin, elevated D-dimer at 28.18, acidosis with pH of 7.3, low bicarb at 19.5, mild hyponatremia at 1:33 a.m., creatinine of 1.42 (unclear if this is deviation from baseline, no history listed of CKD), lactic acid of 3.5, hypermagnesemia at 3.0, UA unremarkable, UDS showing opiate+, and viral PCR negative. CXR showed possible minimal infiltrate or atelectasis at the lung bases. Head CT showed cerebral atherosclerosis, no skull fracture or acute intracranial finding. CTA of chest abdomen pelvis showed no PE, tree-in-bud infiltrate of the right upper lobe, prominent fluid distention of the esophagus, moderate hiatal hernia, s/p cholecystectomy, mild bilateral renal scarring (R greater than L), fluid levels in the small and large bowel suggestive of enterocolitis, no apparent bowel obstruction or any evidence of intraperitoneal free air, and mild ascites. Report was given to sql application developer and patient was flown emergently to [place] ED. upon her arrival it was noted that her abdomen was distended and rigid, no active bowel sounds heard, and ecchymosis surrounding her umbilicus. Repeat CT showed interval development of free air adjacent to the cecum, suspicious for bowel perforation, fecal impaction of the colon without obstruction, and developing small pleural effusions (L greater than R). General surgery then consulted. Patient able to regard/maintain eye contact and nod yes/no despite being intubated. Continued to confirm that abdomen was painful. Review of Systems Review of Systems: Limited due to patient condition All systems reviewed & are unremarkable except as noted in HPI and below ROS unobtainable: Yes unobtainable due to medical condition [facility] Past Medical History Medical History (Updated 03/10/23 @ 00:38 by Sherry Rashid, REJI) Borderline personality disorder Chronic back pain COPD (chronic obstructive pulmonary disease) ERIKA (generalized anxiety disorder) History of MRSA infection HLD (hyperlipidemia) Hypothyroid IBS (irritable bow
[2023-03-09] MEDS: SODIUM BICARBONATE 8.4% 50 MEQ/50 ML SYRINGE IV PUSH ×3 (17:39→17:44)
[2023-03-09] MEDS: NOREPINEPHRINE 8 MG/D5W 250 ML 8 MG/250 ML BAG 37.5 MG IV CONT (17:41)
[2023-03-09] MEDS: DEXTROSE 50% 25 GM/50 ML SYRINGE IV PUSH (17:43)
[2023-03-09] MEDS: INSULIN HUMAN REGULAR (*BKC) 100 UNITS/ML 10 UNITS IV PUSH (17:44)
[2023-03-09 17:45] LABS: Band Neutrophils Percent 22 % (0-6); Hypochromasia 1+ (NORMAL); Lymphocytes Absolute Manual 4.76 K/mm3 (1.1-4.5); Metamyelocytes Percent 1 %; Monocytes Absolute Manual 0.95 K/mm3 (0.1-0.90); Monocytes Percent Manual 8 % (3-9); Neutrophils Absolute Manual 6.06 K/mm3 (1.7-7.2); Neutrophils Percent Manual 29 % (46-73); Platelet Estimate Adequate (Adequate); Schistocytes None Seen (NORMAL); Total Cells Counted 100
[2023-03-09 17:46] LABS: Anisocytosis 2+ (NORMAL)
[2023-03-09] MEDS: ALBUTEROL SULFATE NEB 2.5 MG/3 ML INH 15 MG INHALATION (17:52)
[2023-03-09] MEDS: FENTANYL 2,500MCG/NS250ML(*CRX 2,500 MCG/250 ML BAG IV CONT (18:13)
[2023-03-09] MEDS: SODIUM BICARBONATE 8.4% 100 MEQ in DEXTROSE 5% 1,000 ML 1,000 ML 50 MEQ IV CONT (18:14)
[2023-03-09] MEDS: MIDAZOLAM 100MG/NS 100ML(*CRX) 100 MG/100 ML BAG IV CONT (18:14)
[2023-03-09] MEDS: PIPERACILLN/TAZ 3.375GM/NS50ML 3.375 GM/50 ML BAG IVPB (18:16)
[2023-03-09] MEDS: PHENYLEPHRINE 1,000 MCG/10 ML SYRINGE 200 MCG IV PUSH (18:56)
[2023-03-09] MEDS: VASOPRESSIN INJ 100 UNITS in DEXTROSE 5% 95 ML IV CONT (19:01)
--- NOTE | 2023-03-09 19:15 | WPDANESEPP ---
Anes - Eval Pre Procedure Procedure: Operation Date: 03/09/23 20:30 Proposed Procedures p Exploratory Laparotomy, Pos Bowel Resec - Gabe Kim MD Date/Time: 03/09/23 19:15 Pre Op Diagnosis: Ileus vs SBO Patient Data Age: 62 Gender: F Height: Weight: Last Vital Signs Temp 37.8 C H 03/09/23 18:50 Pulse 151 H 03/09/23 19:11 Resp 26 H 03/09/23 18:50 BP 78/65 L 03/09/23 19:11 Pulse Ox 93 03/09/23 17:44 O2 Del Method Mechanical Ventilation 03/09/23 17:44 FiO2 40 03/09/23 17:44 Allergies Allergy/AdvReac Type Severity Reaction Status Date / Time morphine Allergy Unknown Verified 03/09/23 08:51 Sulfa (Sulfonamide Allergy Unknown Verified 03/09/23 08:51 Antibiotics) Home Medications Medication Instructions Recorded Confirmed Type acetaminophen 325 mg tablet 650 mg PO Q4-6H PRN Pain 03/09/23 03/09/23 History albuterol sulfate 90 mcg/actuation 2 puff inhalation Q4-6H PRN 03/09/23 03/09/23 History aerosol inhaler Shortness Of Breath Or Wheezing budesonide-formoterol HFA 80 2 puff inhalation BID 03/09/23 03/09/23 History mcg-4.5 mcg/actuation aerosol inhaler (Symbicort) citalopram 10 mg tablet 10 mg PO DAILY 03/09/23 03/09/23 History citalopram 20 mg tablet 20 mg PO DAILY 03/09/23 03/09/23 History diazepam 5 mg tablet 5 mg PO QID 03/09/23 03/09/23 History dicyclomine 20 mg tablet 10 mg PO DAILY 03/09/23 03/09/23 History dicyclomine 20 mg tablet 20 mg PO TID PRN Abdominal Pain 03/09/23 03/09/23 History food supplemt, lactose-reduced 1 ea PO TID 03/09/23 03/09/23 History 0.04 gram-1.05 kcal/mL oral liquid (Ensure Original) gabapentin 300 mg capsule 300 mg PO HS 03/09/23 03/09/23 History hydrocodone 10 mg-acetaminophen 1 tablet PO TID PRN Pain 03/09/23 03/09/23 History 325 mg tablet hydroxyzine pamoate 25 mg capsule 25 mg PO QID PRN Anxiety 03/09/23 03/09/23 History lamotrigine 100 mg tablet 100 mg PO BID 03/09/23 03/09/23 History levothyroxine 50 mcg tablet 50 mcg PO DAILY 03/09/23 03/09/23 History meclizine 25 mg tablet 25 mg PO TID PRN Dizziness Or 03/09/23 03/09/23 History Vertigo naproxen 500 mg tablet 500 mg PO BID PRN Pain 03/09/23 03/09/23 History omeprazole 10 mg capsule,delayed 10 mg PO DAILY 03/09/23 03/09/23 History release solifenacin 5 mg tablet 5 mg PO DAILY 03/09/23 03/09/23 History tizanidine 4 mg tablet 4 mg PO TID PRN Muscle Spasm 03/09/23 03/09/23 History Laboratory Tests 03/09/23 03/09/23 16:14 17:04 WBC 11.9 H K/mm3 (4.5-10.0) RBC 5.55 H M/mm3 (4.2-5.4) Hgb 14.6 g/dL (12.0-15.0) Hct 48.9 H % (37.0-47.0) MCV 88.1 fl (80-100) MCH 26.3 pg (26-34) MCHC 29.9 L g/dl (32-36) RDW 16.0 H % (11.5-14.5) Plt Count 245 k/mm3 (150-375) MPV 11.7 H fl (7.4-10.4) Immature Gran % (Auto) Not Reportable Neut % (Auto) Not Reportable Lymph % (Auto) Not Reportable Preston % (Auto) Not Reportable Eos % (Auto) Not Reportable Baso % (Auto) Not Reportable Lymph # (Auto) Not Reportable Preston # (Auto) Not Reportable Eos # (Auto) Not Reportable Baso # (Auto) Not Reportable Abs Immat Gran (auto) Not Reportable Absolute Neuts (auto) Not Reportable Absolute Nucleated RBC Not Reportable Total Counted 100 Neutrophils % (Manual) 29 L % (46-73) Band Neutrophils % 22 H % (0-6) Lymphocytes % (Manual) 40.0 % (18-44) Monocytes % (Manual) 8 % (3-9) Metamyelocytes % 1 % Nucleated RBC % Not Reportable Abs Neuts (Manual) 6.06 K/mm3 (1.7-7.2) Abs Lymphs (Manual) 4.76 H K/mm3 (1.1-4.5) Abs Monocytes (Manual) 0.95 H K/mm3 (0.1-0.90) Platelet Estimate Adequate (Adequate) Hypochromasia 1+ (NORMAL) Anisocytosis 2+ (NORMAL) Schistocytes None seen (ARYAN
--- NOTE | 2023-03-09 19:32 | WPDCN ---
Assessment and Plan Assessment and plan (1) Bowel perforation: Code(s): K63.1 - Perforation of intestine (nontraumatic) Status: Acute Assessment and Plan: Patient has evidence of bowel perforation on CT scan with suggestion that the colon is likely the source of perforation. The nurse practitioner and ICU nurse both witnessed the patient wanting to undergo surgical management. Patient has no listed family or emergency contacts. Will proceed with exploratory laparotomy and likely bowel resection possible ostomy. This will be high risk and prolonged mechanical ventilation, acute renal failure, acute myocardial infarction, or multi-system organ failure due to sepsis is certainly a risk so the possibility of mortality insignificant. (2) Sepsis: Code(s): A41.9 - Sepsis, unspecified organism Status: Acute Assessment and Plan: Likely due to bowel perforation. Continue IV antibiotics. Will need emergent laparotomy this evening. (3) Acute respiratory distress: Code(s): R06.03 - Acute respiratory distress Status: Acute Assessment and Plan: Patient has been intubated. HPI Data of Consult Date/Time: 03/09/23 19:32 Requesting Physician: Harris Lerner MD Primary Care Provider: UNKNOWN,DOCTOR Consult Narrative Reason for consult: Sepsis, perforated bowel, acute respiratory failure Narrative: Jeanne rFagoso is a 62 year old female admitted to the intensive care unit and transferred from [facility] this afternoon. She is a resident of a care facility apparently has no emergency contacts. She has chronic back pain was given some narcotic oral pain medication and had decreased level of consciousness and was complaining of some abdominal pain. She was taken emergently to the emergency room at [facility]. A CT scan abdomen pelvis and chest was performed showing no evidence of pulmonary embolus. She had some changes suggestive of possible early pneumonia. In the abdomen there was evidence of a prior cholecystectomy and dilation of the colon in some thickening of the colonic wall suggestive of possible enterocolitis. No free air was seen at that time. No obstruction was seen. She subsequent was transferred to the intensive care unit here at [facility] upon arrival her upper abdominal exam was consistent with a rigid abdomen as per the nurse practitioner on the accepting hospitalist service. The patient had a elevated white blood count 21944 and lactic acidosis of 3.2. She also had hyperkalemia with a potassium level over 6. Hospitalist service then obtain a stat CT scan abdomen pelvis which showed interval development of free air in the right lower quadrant the abdomen near the cecum. The patient has now been intubated and has been started on Levophed for blood pressure because she has been hypotensive. However after intubation the nurse practitioner and the intensive care unit nurse spoke with the patient after trying to contact her facility. The care facilities stated they had no listings for emergency contacts or family. The patient will intubated did nod yes in the affirmative when asked twice on 2 separate occasions by the nurse practitioner and this was witnessed by the ICU nurse as she wanted to proceed with surgery because of her current acute surgical abdomen. It was explained to her that she may have to undergo a bowel resection and that her risks of remaining on the ventilator were also high. She again as reported by nursing staff nodded yes again. She does to have a healed midline scar from prior abdominal surgery. No records or family members are available to add any information as to what she may have had done. Review of Systems Review of Systems: Unobtainable as the patient is intubated and sedated. [facility] Past Medical History Medical History Borderline personality disorde
--- NOTE | 2023-03-09 19:33 | PC.NURSE ---
Patient transferred in bed to OR by OR team.
[2023-03-09] MEDS: VANCOMYCIN 1,000 MG/NS 250 ML 1,000 MG/250 ML BAG 250 MG IVPB (19:35)
--- NOTE | 2023-03-09 19:37 | ADMGEN ---
This patient, Jeanne Fragoso, was admitted to Intensive Care Unit-5 at 1539 as a direct admit from [facility]. Patient/family oriented to hospital policies and general routines including ID bracelet, bed and alarms, visiting hours, pain management, procedures, bathroom and other care routines, personal items, smoking policy, room service/diet, and visiting hours. Information on how to activate the Rapid Response Team has been discussed. Patient/Family are encouraged to report perceived risks to care and to ask questions if they do not understand what they are told or what they should do.
--- NOTE | 2023-03-09 19:45 | WPDHPUPDATE1 ---
History and Physical Update Update Date/Time: 03/09/23 19:45 History and Physical has been reviewed, including an updated exam of the patient. There are NO changes in the patient's condition. Risks, benefits, and alternatives have been discussed and questions answered. Patient agrees to proceed with procedure.
--- NOTE | 2023-03-09 20:02 | SUR.OPER ---
Patient retrieved from ICU-5 by this RN, COMMUNITY ADVOCATE, and TESTER VIBRATOR EQUIPMENT @ 193. Brief report obtained from primary RN. Surgical consent obtained prior to surgical team arriving. Patient arrived to OR-5 @ 1935. See intraoperative documentation and provider operative notes for further information
--- NOTE | 2023-03-09 20:03 | WPDANESEPPF ---
Anes - Initial Pre Proc Eval Procedure: Operation Date: 03/09/23 20:30 Proposed Procedures p Exploratory Laparotomy, Pos Bowel Resec - Gabe Kim MD Date/Time: 03/09/23 20:03 Surgeon: Harris Lerner MD Pre Op Diagnosis: Ileus vs SBO Patient Data Age: 62 Gender: F Height: 1.57 m Weight: 48.6 kg Last Vital Signs Temp 37.8 C H 03/09/23 18:50 Pulse 151 H 03/09/23 19:35 Resp 26 H 03/09/23 18:50 BP 78/65 L 03/09/23 19:11 Pulse Ox 92 03/09/23 19:35 O2 Del Method Mechanical Ventilation 03/09/23 19:35 FiO2 50 03/09/23 19:35 Allergies Allergy/AdvReac Type Severity Reaction Status Date / Time morphine Allergy Unknown Verified 03/09/23 08:51 Sulfa (Sulfonamide Allergy Unknown Verified 03/09/23 08:51 Antibiotics) Home Medications Medication Instructions Recorded Confirmed Type acetaminophen 325 mg tablet 650 mg PO Q4-6H PRN Pain 03/09/23 03/09/23 History albuterol sulfate 90 mcg/actuation 2 puff inhalation Q4-6H PRN 03/09/23 03/09/23 History aerosol inhaler Shortness Of Breath Or Wheezing budesonide-formoterol HFA 80 2 puff inhalation BID 03/09/23 03/09/23 History mcg-4.5 mcg/actuation aerosol inhaler (Symbicort) citalopram 10 mg tablet 10 mg PO DAILY 03/09/23 03/09/23 History citalopram 20 mg tablet 20 mg PO DAILY 03/09/23 03/09/23 History diazepam 5 mg tablet 5 mg PO QID 03/09/23 03/09/23 History dicyclomine 20 mg tablet 10 mg PO DAILY 03/09/23 03/09/23 History dicyclomine 20 mg tablet 20 mg PO TID PRN Abdominal Pain 03/09/23 03/09/23 History food supplemt, lactose-reduced 1 ea PO TID 03/09/23 03/09/23 History 0.04 gram-1.05 kcal/mL oral liquid (Ensure Original) gabapentin 300 mg capsule 300 mg PO HS 03/09/23 03/09/23 History hydrocodone 10 mg-acetaminophen 1 tablet PO TID PRN Pain 03/09/23 03/09/23 History 325 mg tablet hydroxyzine pamoate 25 mg capsule 25 mg PO QID PRN Anxiety 03/09/23 03/09/23 History lamotrigine 100 mg tablet 100 mg PO BID 03/09/23 03/09/23 History levothyroxine 50 mcg tablet 50 mcg PO DAILY 03/09/23 03/09/23 History meclizine 25 mg tablet 25 mg PO TID PRN Dizziness Or 03/09/23 03/09/23 History Vertigo naproxen 500 mg tablet 500 mg PO BID PRN Pain 03/09/23 03/09/23 History omeprazole 10 mg capsule,delayed 10 mg PO DAILY 03/09/23 03/09/23 History release solifenacin 5 mg tablet 5 mg PO DAILY 03/09/23 03/09/23 History tizanidine 4 mg tablet 4 mg PO TID PRN Muscle Spasm 03/09/23 03/09/23 History Laboratory Tests 03/09/23 03/09/23 16:14 17:04 WBC 11.9 H K/mm3 (4.5-10.0) RBC 5.55 H M/mm3 (4.2-5.4) Hgb 14.6 g/dL (12.0-15.0) Hct 48.9 H % (37.0-47.0) MCV 88.1 fl (80-100) MCH 26.3 pg (26-34) MCHC 29.9 L g/dl (32-36) RDW 16.0 H % (11.5-14.5) Plt Count 245 k/mm3 (150-375) MPV 11.7 H fl (7.4-10.4) Immature Gran % (Auto) Not Reportable Neut % (Auto) Not Reportable Lymph % (Auto) Not Reportable Taylor % (Auto) Not Reportable Eos % (Auto) Not Reportable Baso % (Auto) Not Reportable Lymph # (Auto) Not Reportable Taylor # (Auto) Not Reportable Eos # (Auto) Not Reportable Baso # (Auto) Not Reportable Abs Immat Gran (auto) Not Reportable Absolute Neuts (auto) Not Reportable Absolute Nucleated RBC Not Reportable Total Counted 100 Neutrophils % (Manual) 29 L % (46-73) Band Neutrophils % 22 H % (0-6) Lymphocytes % (Manual) 40.0 % (18-44) Monocytes % (Manual) 8 % (3-9) Metamyelocytes % 1 % Nucleated RBC % Not Reportable Abs Neuts (Manual) 6.06 K/mm3 (1.7-7.2) Abs Lymphs (Manual) 4.76 H K/mm3 (1.1-4.5) Abs Monocytes (Manual) 0.95 H K/mm3 (0.1-0.90) Platelet Estimate Adequate (Adequate) Hypochromasia 1+ (NORMAL) Anisocytosis 2+ (
--- NOTE | 2023-03-09 20:29 | PC.NURSE ---
Pt unable to assist in admission and has no contacts-information obtained as available from medical records.
[2023-03-09] MEDS: EPINEPHrine INJ 1 MG in DEXTROSE 5% IN WATER 250 ML 150.6 MG IV CONT (21:42)
--- NOTE | 2023-03-09 21:42 | SUR.OPER ---
Report provided to CALENDER ROLL OPERATOR @ 0914. Informed of rapidly declining patient condition and to anticipate potential code upon arrival to ICU. Follow up brief report called to CALENDER ROLL OPERATOR @0924 Patient moved to ICU bed and promptly transported to the unit. Code team present upon arrival @ 09 Bedside handoff between Anesthesiologist, PROPERTY CUSTODIAN, Surgeon, and this RN to bedside RN, charge nurse, and data warehouse administrator. Assisted with settling patient.
[2023-03-09 22:04] LABS: Hematocrit 33.3 % (37.0-47.0); Hemoglobin 9.8 g/dL (12.0-15.0); Mean Corpuscular HGB Conc 29.4 g/dl (32-36); Mean Corpuscular Volume 88.3 fl (80-100); Mean Platelet Volume 11.8 fl (7.4-10.4); Platelet Count Result 168 k/mm3 (150-375); Red Blood Count 3.77 M/mm3 (4.2-5.4); Red Cell Distribution Width 15.8 % (11.5-14.5); White Blood Count 11.6 K/mm3 (4.5-10.0)
[2023-03-09 22:13] LABS: Ammonia < 9 umol/L (9-30)
--- NOTE | 2023-03-09 22:14 | W.PM.PROC2 ---
Procedure Note - Detailed Date of Procedure 03/09/23 Pre-op Diagnosis Acute surgical abdomen secondary to perforated bowel , sepsis secondary to perforated bowel, acute renal failure, acute respiratory failure. Post-op Diagnosis Other ( Necrotic colon with perforation, sepsis secondary to necrotic colon, acute renal failure, acute respiratory failure.) Procedure Performed Exploratory laparotomy with total colectomy. Surgeon Gabe iKm MD Partition Assembly Machine Operator RICHARD Light Anesthesia General Indications Patient was transferred from [facility] Emergency Room after being seen there for loss of consciousness and shortness of breath. She had a CT scan abdomen pelvis and chest which showed no pulmonary embolus but possible pneumonia. Dilated and thickened colon suggestive of enterocolitis was also seen on the CT scan but no perforation or free air was seen. When she was transferred to the intensive care unit she had to be intubated due to acute respiratory failure. Her abdomen was rigid and distended[place] [id number]. Lactic acid level was 3 and her potassium was greater than 6. Repeat CT scan abdomen pelvis was performed showing interval development of free air in the abdomen with likely perforation somewhere near the cecum. Unfortunately the patient was in a care facility and there were no emergency contacts. Even though she was intubated she understood that she needed to have a surgery she works going to survive. This was asked for twice and both times she replied with a yes not of her head that she wanted to have the surgery. She presents now for emergent exploratory laparotomy and bowel resection. Findings Upon entering the abdomen there was a lot of necrotic colon and bloody fluid but no gross feces. there were copious adhesions of the omentum and the colon to the anterior abdominal wall. Eventually I was able to open up the whole incision evaluate O: The whole colon from the terminal ileum all the way to the mid sigmoid colon was totally necrotic. There was no large perforation no large amount of fecal spillage. The small bowel from the duodenum all the way to the mid terminal ileum was viable however. Description of Procedure Consent was obtained from the patient and witnessed by 2 people to include the hospitalist nurse-practitioner as well as the intensive care unit nurse. She was then taken emergently down to the operating room in the intensive care unit her abdomen was then prepped and draped usual sterile fashion after induction of general anesthesia. I made a generous midline incision starting in the mid epigastric region extending all events of pubic symphysis. Dissection was carried down through the subcu tissue with electrocautery. I entered the abdomen in the mid epigastric region medially upon entering the abdomen there was foul smell of necrotic bowel and drainage of a large amount of bloody fluid. I and continued my vision opening of the fascial caudally there were copious adhesions of the omentum as well as the transverse colon to the anterior abdominal wall. As I continued to open the midline fascia and take down these adhesions I could further see that the whole colon from the terminal ileum all the way down to the mid sigmoid colon was totally necrotic. The small bowel however on the duodenum all the way down to the mid ileum was actually viable. Once I had taken down the omental adhesions to the anterior abdominal wall and the colon from the anterior abdominal wall I was able to start mobilizing the cecum and terminal ileum. The lateral peritoneal attachments the right side were divided with electrocautery and then division of the white line of Toldt right side was performed with electrocautery. I mobilized the terminal ileum, cecum, and ascending colon to the midline. Duodenum was identified and was preserved without injury. I then divided the hepatocolic ligament utilizing the
[2023-03-09 22:16] LABS: Alanine Aminotransferase 30 U/L (6-35); Albumin Level 1.5 g/dL (3.5-5.1); Alkaline Phosphatase 35 U/L (38-126); Anion Gap 10 mmol/L (8-16); Aspartate Amino Transferase 71 U/L (14-36); Bilirubin,Total 0.4 mg/dL (0.2-1.3); Blood Urea Nitrogen 37 mg/dL (7-17); Calcium 6.6 mg/dL (8.4-10.2); Carbon Dioxide 18 mmol/L (22-30); Chloride 115 mmol/L (98-107); Estimated CRCL calculation 30 ml/min; Estimated Glomerular Filt Rate 41; Glucose 145 mg/dL (65-110); Magnesium 2.7 mg/dL (1.6-2.3); Phosphorus 3.6 mg/dL (2.5-4.5); Potassium 4.8 mmol/L (3.4-5.0); Sodium 143 mmol/L (137-145)
[2023-03-09 22:21] LABS: Band Neutrophils Percent 25 % (0-6); Lymphocytes Absolute Manual 4.52 K/mm3 (1.1-4.5); Monocytes Absolute Manual 1.16 K/mm3 (0.1-0.90); Monocytes Percent Manual 10 % (3-9); Neutrophils Absolute Manual 5.91 K/mm3 (1.7-7.2); Neutrophils Percent Manual 26 % (46-73); Total Cells Counted 100
[2023-03-09 22:22] LABS: Hypochromasia 1+ (NORMAL); Platelet Estimate Adequate (Adequate); Schistocytes None Seen (NORMAL)
[2023-03-09 22:24] LABS: Anisocytosis 2+ (NORMAL)
[2023-03-09] MEDS: MINERAL OIL/WHITE PETROLATUM OINTMENT 1 APPLIC EACH EYE (22:54)
[2023-03-09] MEDS: ALBUMIN HUMAN 25% 25 GM/100 ML 100 ML IVPB (22:54)
[2023-03-09] MEDS: NOREPINEPHRINE 8 MG/D5W 250 ML 8 MG/250 ML BAG 56.25 MG IV CONT (22:57)
[2023-03-09] MEDS: EPINEPHrine INJ 1 MG in DEXTROSE 5% IN WATER 250 ML 120.48 MG IV CONT (23:25)
[2023-03-10] VITALS (67 sets, daily range): BP systolic 86–164; BP diastolic 31–97; PULSE 122–149; RESP 23–25; TEMP 37.2–37.9; O2SAT 90–98
[2023-03-10] MEDS: PIPERACILLN/TAZ 3.375GM/NS50ML 3.375 GM/50 ML BAG IVPB ×4 (00:50→17:24)
[2023-03-10 01:02] LABS: Reflex Lactic Acid Yes or No Add Lactic
[2023-03-10] MEDS: EPINEPHrine INJ 1 MG in DEXTROSE 5% IN WATER 250 ML 105.42 MG IV CONT ×3 (02:00→06:23)
[2023-03-10] MEDS: NOREPINEPHRINE 8 MG/D5W 250 ML 8 MG/250 ML BAG 56.25 MG IV CONT ×2 (02:15→06:29)
[2023-03-10] MEDS: ALBUMIN HUMAN 25% 25 GM/100 ML 100 ML IVPB ×3 (06:20→17:25)
[2023-03-10 06:21] LABS: Hematocrit 35.3 % (37.0-47.0); Hemoglobin 10.8 g/dL (12.0-15.0); Mean Corpuscular HGB Conc 30.6 g/dl (32-36); Mean Corpuscular Hemoglobin 26.2 pg (26-34); Mean Corpuscular Volume 85.7 fl (80-100); Mean Platelet Volume 11.8 fl (7.4-10.4); Platelet Count Result 188 k/mm3 (150-375); Red Blood Count 4.12 M/mm3 (4.2-5.4); Red Cell Distribution Width 15.8 % (11.5-14.5); White Blood Count 19.8 K/mm3 (4.5-10.0)
[2023-03-10 06:28] LABS: Ammonia 91 umol/L (9-30)
[2023-03-10 06:29] LABS: Alanine Aminotransferase 38 U/L (6-35); Albumin Level 2.2 g/dL (3.5-5.1); Alkaline Phosphatase 36 U/L (38-126); Anion Gap 11 mmol/L (8-16); Aspartate Amino Transferase 112 U/L (14-36); Bilirubin,Total 0.4 mg/dL (0.2-1.3); Blood Urea Nitrogen 36 mg/dL (7-17); Calcium 5.9 mg/dL (8.4-10.2); Carbon Dioxide 22 mmol/L (22-30); Chloride 99 mmol/L (98-107); Estimated CRCL calculation 30 ml/min; Estimated Glomerular Filt Rate 41; Glucose 390 mg/dL (65-110); Magnesium 2.1 mg/dL (1.6-2.3); Phosphorus 3.5 mg/dL (2.5-4.5); Potassium 4.2 mmol/L (3.4-5.0); Sodium 132 mmol/L (137-145)
[2023-03-10 06:36] LABS: Lactic Acid Reflex 6.5 mmol/L (0.7-2.0)
[2023-03-10 07:48] LABS: Band Neutrophils Percent 44 % (0-6); Lymphocytes Absolute Manual 5.74 K/mm3 (1.1-4.5); Metamyelocytes Percent 7 %; Monocytes Absolute Manual 1.18 K/mm3 (0.1-0.90); Monocytes Percent Manual 6 % (3-9); Neutrophils Absolute Manual 11.48 K/mm3 (1.7-7.2); Neutrophils Percent Manual 14 % (46-73); Platelet Estimate Adequate (Adequate); Schistocytes None Seen (NORMAL); Total Cells Counted 100
[2023-03-10] MEDS: LACTATED RINGERS 1,000 ML 100 ML IV CONT ×2 (08:27→14:36)
[2023-03-10] MEDS: MINERAL OIL/WHITE PETROLATUM OINTMENT 1 APPLIC EACH EYE ×2 (08:28→20:12)
[2023-03-10] MEDS: PANTOPRAZOLE SODIUM IV 40 MG VIAL IV PUSH (08:28)
--- NOTE | 2023-03-10 08:57 | P.PCNBED_ITS ---
Procedures Arterial Line Arterial Line Date: 03/10/23 Arterial Line Time: 08:57 Perfomed Emergently - Given emergent patient conditions, temporal constraints may have precluded informed consent: Yes Time Out Performed: Yes Patient Position: supine Technical Project Manager Prep: sterile gown, sterile gloves, mask and hat Site: left and femoral Site Prep: chlorhexidine and sterile drape Skin Anesthesia: 1% lidocaine Technique used: ultrasound-guided Size (Gauge): 14 Length: 12 cm Closure/Dressing: suture, transparent dressing, hemostatic product, antimicrobial product and securement product Patient tolerated procedure: well Complications: none
--- NOTE | 2023-03-10 08:59 | WPDCNINT ---
Assessment and Plan Assessment and plan (1) Acute respiratory failure: Code(s): J96.00 - Acute respiratory failure, unspecified whether with hypoxia or hypercapnia Status: Acute Assessment and Plan: Acute respiratory failure likely related to sepsis, septic shock -03/09: patient intubated at the outside hospital ER -remains on CMV mode of ventilation, peep of 5, 55% FiO2, -ABGs reviewed, ventilator adjusted, wean FiO2 to maintain O2 sats greater than 92% -low tidal volume strategy to avoid volu-trauma -sedated with fentanyl infusion (2) Septic shock: Code(s): A41.9 - Sepsis, unspecified organism; R65.21 - Severe sepsis with septic shock Status: Acute Assessment and Plan: Patient presented with hypotension, shortness of breath, acute kidney injury, found to have Acute surgical abdomen secondary to perforated bowel s/p Exploratory laparotomy with total colectomy for Necrotic colon with perforation, -patient has been on 4 pressors (norepinephrine, Atul-Synephrine, vasopressin and epinephrine) -maintain MAP > 65 mmHg are SBP > 100 mmHg at all times for adequate end organ perfusion -03/10: left femoral arterial line was placed -patient has been adequately fluid-resuscitated -currently on LR and albumin for volume expansion -minimal urine output, stable creatinine -continue Zosyn and vancomycin (03/09) -will add stress dose steroids -03/09 blood cultures have been obtained and pending -03/10 sputum cultures have been obtained and pending (3) ITALO (acute kidney injury): Code(s): N17.9 - Acute kidney failure, unspecified Status: Acute Assessment and Plan: Patient presented with acute kidney injury with a creatinine of 1.42 (baseline creatinine of 0.78 on 02/12/2023) -patient has been adequately fluid-resuscitated at the outside [facility] ER, [facility] ICU and the OR -continue maintenance IV fluids and albumin -continues to have urine output -will continue to monitor urine output, renal function electrolytes (4) AMS (altered mental status): Qualifiers: Altered mental status type: unspecified Qualified Code(s): R41.82 - Altered mental status, unspecified Code(s): R41.82 - Altered mental status, unspecified Status: Acute Assessment and Plan: Patient presented with altered mental status which most likely related to septic shock, bowel perforation, acute respiratory failure -will manage underlying causes (5) Bowel perforation: Code(s): K63.1 - Perforation of intestine (nontraumatic) Status: Acute Assessment and Plan: 03/09: Initial CT scan of the abdomen/pelvis at the outside hospital ER did not show any perforation or free air does dilated and thickened colon suggestive of enterocolitis 03/09: Repeat CT scan abdomen pelvis at [facility] ICU was performed because of abdominal distension and rigid abdomen which showed interval development of free air in the abdomen with likely perforation somewhere near the cecum. Patient underwent ex lap with total colectomy: According to the operative notes the whole colon from the terminal ileum all the way down to the mid sigmoid colon was totally necrotic. Patient had total colectomy. On the OR table patient was very unstable with significantly low blood pressure, and tachycardia, the fascia was left approximated abdominal was closed with vineet in the skin and was transferred to the ICU (6) COPD (chronic obstructive pulmonary disease): Code(s): J44.9 - Chronic obstructive pulmonary disease, unspecified Status: Acute Assessment and Plan: Will start bronchodilators (7) Hyperkalemia: Code(s): E87.5 - Hyperkalemia Status: Acute Assessment and Plan: Patient upon arrival to the ICU at [facility] was hyperkalemic with potassium of 6.3 -patient was treated -potassium this morning is 4.2 and stable (8) Hyperammonemia: Code(s): E72.20 - Disorde
[2023-03-10 09:03] LABS: Alveolar/Arterial O2 Gradient 224.5 mmHg; Base Excess ABG -3.3 mEq/l (+/-2.0); Fractional Inspired Oxygen 55 %; HCO3 ABG 20.8 mEq/l (22.0-26.0); Oxygen Content ABG 15.4 %vol (16.0-22.0); Oxygen Saturation ABG 98.6 % (95.0-100.0); Oxyhemoglobin 97.2 % THb (90.0-100.0); PCO2 ABG 34.1 mmHg (35.0-45.0); PO2 ABG 129.7 mmHg (80.0-100.0); PO2 FiO2 Ratio Arterial Blood 2.36 %; Total Hemoglobin 11.1 g/dL (12.0-18.0); pH ABG 7.404 (7.350-7.450)
[2023-03-10 09:04] LABS: Device VENTILATOR; Site Drawn ARTLINE
[2023-03-10 09:05] LABS: Arterial Blood Gas PEEP 5 cmH2O; Arterial Blood Gas Tidal Volume 330 ml; Arterial Blood Gas Vent Mode CMV; Arterial Blood Gas Ventilator rate 24 /MIN
[2023-03-10] MEDS: EPINEPHrine INJ 1 MG in DEXTROSE 5% IN WATER 250 ML 75.3 MG IV CONT (09:10)
[2023-03-10 09:20] LABS: INR 2.3; Prothrombin Time 26.5 Seconds (11.1-14.7)
[2023-03-10 09:21] LABS: Partial Thromboplastin Time 48.8 SECONDS (22.3-36.8)
[2023-03-10] MEDS: CALCIUM GLUC 2,000 MG/NS 100ML 2,000 MG/100 ML BAG 100 MG IVPB (09:36)
[2023-03-10] MEDS: HYDROCORTISONE SODIUM SUCCINATE 100 MG/2 ML VIAL IV PUSH ×3 (09:37→21:16)
[2023-03-10] MEDS: BUDESONIDE RESPULE NEB 0.5 MG/2 ML AMP INHALATION ×2 (09:49→20:16)
[2023-03-10] MEDS: IPRATROPIUM BR 0.02% INH SOLN 0.5 MG/2.5 ML VIAL INHALATION ×3 (09:50→20:16)
[2023-03-10] MEDS: LEVALBUTEROL NEB 1.25 MG/3 ML 0.63 MG INHALATION ×3 (09:50→20:16)
[2023-03-10] MEDS: INSULIN ASPART (*BKC) 100 UNITS/ML SUB-Q (11:23)
[2023-03-10 11:29] LABS: Glucose Point of Care 295 mg/dl (65-105)
[2023-03-10] MEDS: NOREPINEPHRINE 8 MG/D5W 250 ML 8 MG/250 ML BAG 50.63 MG IV CONT (11:30)
--- NOTE | 2023-03-10 11:33 | WPDPN ---
Progress Note: A&P Assessment and Plan (1) Septic shock: Code(s): A41.9 - Sepsis, unspecified organism; R65.21 - Severe sepsis with septic shock Status: Acute Assessment and Plan: Due to chronic colon. Status post total colectomy for source control. Abdomen remains open for now. Continue broad-spectrum IV antibiotics. This is have been weaning but she still need pressor support with multiple pressors. (2) Acute respiratory failure: Code(s): J96.00 - Acute respiratory failure, unspecified whether with hypoxia or hypercapnia Status: Acute Assessment and Plan: Remains on ventilator. Expect she will let remain on the ventilator for a while. Management as per anode machine operator. (3) ITALO (acute kidney injury): Code(s): N17.9 - Acute kidney failure, unspecified Status: Acute Assessment and Plan: Surprising the renal dysfunction is only mild. Creatinine is 1.3. She is making urine. (4) Bowel perforation: Code(s): K63.1 - Perforation of intestine (nontraumatic) Status: Acute Assessment and Plan: Gross contamination of the abdomen perforation of colon from the necrotic colon. Total colectomy performed yesterday down to the level of the mid sigmoid colon. Abdomen was left open due to hemodynamic instability in the operating room. If she is able to wean off of 1 or 2 more the pressors and stable no to go to the operating room then I would attempt to place an end ileostomy as was not performed last night and try to close our abdomen. The abdomen is not able to be closed then bridging with micromesh or biosynthetic meds such as Phasix mesh may be needed. Subjective Date/time seen: 03/10/23 11:33 Interval history: Patient is postop day 1 after emergent laparotomy and total colectomy for a totally necrotic colon. She was septic and hypotensive and unstable in the operating room. Abdomen was left open and the skin closed with vineet and attempt to get her out of the operating room back up to the intensive care unit for aggressive acute care management. She initially was on 4 pressors but down has been weaned down to 3. She does react to painful stimuli. Kidneys are holding on with creatinine 1.3 today and she is making some urine. White blood cell count is 19,000 today. She remains on Zosyn, Flagyl, and vancomycin. She remains on the ventilator full vent support. Exam GI: Other: Despite having no colon of the abdomen the patient is abdomen is distended. Likely due to distention of the small bowel and the open abdomen where fascia was not closed. Copious serous drainage from the abdomen. No bloody drainage. Neuro: Other: Patient does react to painful stimuli Extrem: Other: Patient has dopplerable dorsalis pedis pulses. Objective Data Vital Signs Vital Signs: Vital Signs - 24 hr 03/09/23 15:50 03/09/23 17:44 03/09/23 17:53 Temperature Pulse Rate 147 H 142 H 138 H Respiratory Rate 25 H Blood Pressure Pulse Oximetry 96 93 Oxygen Delivery Mechanical Ventilation Mechanical Ventilation Fraction of Inspired Oxygen 50 40 03/09/23 17:41 03/09/23 17:43 03/09/23 17:51 Temperature Pulse Rate 142 H 142 H 145 H Respiratory Rate Blood Pressure 91/60 L 152/82 H 131/109 H Pulse Oximetry Oxygen Delivery Fraction of Inspired Oxygen 03/09/23 18:04 03/09/23 18:13 03/09/23 18:14 Temperature Pulse Rate 142 H 147 H 147 H Respiratory Rate 27 H 27 H Blood Pressure 146/109 H Pulse Oximetry Oxygen Delivery Fraction of Inspired Oxygen 03/09/23 18:34 03/09/23 18:45 03/09/23 18:57 Temperature Pulse Rate 151 H 151 H 151 H Respiratory Rate Blood Pressure 82/55 L 69/50 L 77/68 L Pulse Oximetry Oxygen Delivery Fraction of Inspired Oxygen 03/09/23 19:01 03/09/23 19:06 03/09/23 19:11 Temperature Pulse Rate 151 H 151 H 151 H Respiratory Rate Blood Pressure 77/68 L 82/50 L 7
[2023-03-10 12:20] LABS: Lactic Acid Reflex 3.6 mmol/L (0.7-2.0)
[2023-03-10] MEDS: LACTATED RINGERS 500 ML 999 ML IV CONT ×2 (12:50→13:25)
--- NOTE | 2023-03-10 14:00 | WPDANESPN ---
Anes - Prog Note Post-Op Date/Time: 03/10/23 14:00 Cardiovascular status: other (pt remains on aggressive vasopressors) Respiratory status: other (mechanical ventilation) Airway patency: other (Endotracheal intubation ) Mental status: other (reportedly responds to painful stimuli) Post-Op hydration status: normal and other Vital Signs: Last Vital Signs Temp 100.2 F H 03/10/23 12:00 Pulse 137 H 03/10/23 13:42 Resp 24 H 03/10/23 12:00 BP 128/71 03/10/23 13:42 Pulse Ox 96 03/10/23 12:00 O2 Del Method Mechanical Ventilation 03/10/23 12:00 FiO2 45 03/10/23 12:00 Pain Score (VAS): 0 I/O: Intake & Output 03/09/23 03/10/23 03/10/23 23:59 07:59 15:59 Intake Total 1551 2113 1606 Output Total 0 775 Balance 1551 1338 1606 Laboratory Tests 03/10/23 06:10 03/10/23 06:10 03/09/23 03/09/23 03/09/23 16:14 17:04 21:58 WBC 11.9 H 11.6 H RBC 5.55 H 3.77 L Hgb 14.6 9.8 L D Hct 48.9 H 33.3 L MCV 88.1 88.3 MCH 26.3 26.0 MCHC 29.9 L 29.4 L RDW 16.0 H 15.8 H Plt Count 245 168 MPV 11.7 H 11.8 H Immature Gran % (Auto) Not Reportable Not Reportable Neut % (Auto) Not Reportable Not Reportable Lymph % (Auto) Not Reportable Not Reportable [place] % (Auto) Not Reportable Not Reportable Eos % (Auto) Not Reportable Not Reportable Baso % (Auto) Not Reportable Not Reportable Lymph # (Auto) Not Reportable Not Reportable [place] # (Auto) Not Reportable Not Reportable Eos # (Auto) Not Reportable Not Reportable Baso # (Auto) Not Reportable Not Reportable Abs Immat Gran (auto) Not Reportable Not Reportable Absolute Neuts (auto) Not Reportable Not Reportable Absolute Nucleated RBC Not Reportable Not Reportable Total Counted 100 100 Neutrophils % (Manual) 29 L 26 L Band Neutrophils % 22 H 25 H Lymphocytes % (Manual) 40.0 39.0 Monocytes % (Manual) 8 10 H Metamyelocytes % 1 Nucleated RBC % Not Reportable Not Reportable Abs Neuts (Manual) 6.06 5.91 Abs Lymphs (Manual) 4.76 H 4.52 H Abs Monocytes (Manual) 0.95 H 1.16 H Platelet Estimate Adequate Adequate Hypochromasia 1+ 1+ Anisocytosis 2+ 2+ Schistocytes None seen None seen PT 15.0 H INR 1.1 APTT 33.4 Puncture Site Pending ABG pH 7.364 ABG pCO2 43.8 ABG pO2 125.8 H ABG PO2/FiO2 Ratio 2.52 ABG HCO3 24.4 ABG O2 Saturation 98.4 ABG O2 Content 19.0 ABG Base Excess -1.1 A-a Gradient 181.4 Oxyhemoglobin 96.3 Carboxyhemoglobin 2.3 H Methemoglobin 0.2 Reduced Hemoglobin 1.2 Total Hemoglobin 13.9 O2 Delivery Device Pending O2 Liters/Min Pending Minute Volume Vent Rate Vent Mode FiO2 50 Tidal Volume PEEP Peak Inspir Pressure Pressure Support Sodium 138 143 Potassium 6.3 H* 4.8 Chloride 113 H 115 H Carbon Dioxide 18 L 18 L Anion Gap 7 L 10 BUN 35 H 37 H Creatinine 1.30 H 1.30 H Estim Creat Clear Calc Not Reportable 30 Estimated GFR 41 L 41 L Glucose 119 H 145 H POC Capillary Glucose Lactic Acid 3.6 H 8.0 H* Calcium 7.2 L 6.6 L Phosphorus 4.3 3.6 Magnesium 2.6 H 2.7 H Total Bilirubin 0.6 0.4 AST 59 H 71 H ALT 26 30 Alkaline Phosphatase 59 35 L Ammonia 189 H < 9 L Total Protein 5.0 L 3.0 L Albumin 2.7 L 1.5 L Lipase 112 TSH 1.590 Blood Type A Positive Antibody Screen Negative 03/10/23 03/10/23 03/10/23 06:10 07:50 09:03 WBC 19.8 H RBC 4.12 L Hgb 10.8 L Hct 35.3 L MCV 85.7 MCH 26.2 MCHC 30.6 L RDW 15.8 H Plt Count 188 MPV 11.8 H Immature Gran % (Auto) Not Reportable Neut % (Auto) Not Reportable Lymph % (Auto) Not Reportable [place] % (Auto) Not Reportable Eos % (Auto) Not Reportable Baso % (Auto) Not Reportable Lymph # (Auto) Not Reportable [place] # (Auto) Not Reportable Eos # (Auto) Not Reportable Baso # (Auto) Not R
[2023-03-10 15:09] LABS: Reflex Lactic Acid Yes or No Add Lactic
[2023-03-10 15:45] LABS: Lactic Acid 3.5 mmol/L (0.7-2.0)
[2023-03-10 17:23] LABS: Glucose Point of Care 146 mg/dl (65-105)
--- NOTE | 2023-03-10 18:08 | PM.IMPN ---
Progress Note: A&P Assessment and Plan (1) Acute respiratory failure: Code(s): J96.00 - Acute respiratory failure, unspecified whether with hypoxia or hypercapnia Status: Acute Assessment and Plan: Acute respiratory failure related to septic shock -03/09: patient intubated at the outside hospital ER -remains on mechanical ventilation and in critical condition -ABGs reviewed, ventilator adjustment per supervisor labor gang Appreciae supervisor labor gang input (2) Septic shock: Code(s): A41.9 - Sepsis, unspecified organism; R65.21 - Severe sepsis with septic shock Status: Acute Assessment and Plan: Patient presented with hypotension and found to be in septic shock with fevers, AMS, ITALO, tachycardia, lactic acidosis and HoTN Found to have acute surgical abdomen secondary to perforated bowel Now s/p exploratory laparotomy with total colectomy for necrotic colon with perforation -patient was on 4 pressors (norepinephrine, Atul-Synephrine, vasopressin and epinephrine) but able to wean down -maintain MAP>65 and SBP>100 at all times for adequate end organ perfusion -BCx 03/09 pending -Sputum Cx 03/10 pending -Left femoral arterial line was placed 03/10 -patient has been adequately fluid-resuscitated -currently on LR and albumin for volume expansion -WBC 20K with 44% bandemia. lactic at 3.5 -UOP 950 so far today. -Started on Zosyn and vancomycin (03/09) -Stress dose steroids added 03/10 Wean pressors as able (3) Bowel perforation: Code(s): K63.1 - Perforation of intestine (nontraumatic) Status: Acute Assessment and Plan: Patient presents to the OSH with AMS and also with abdominal pain with distention. CT Abd/pelvis performed 03/09 did not show perforation or free air but did show fluid levels in the small and large bowel with prominent amount of fecal material in the colon and gaseous distention. Repeat CT scan abdomen pelvis 03/09 at [facility] ICU was performed because of surgical abdomen which showed interval development of free air adjacent to the cecum. General Surgery consulted and patient underwent ex lap with total colectomy. According to the operative notes the whole colon from the terminal ileum all the way down to the mid sigmoid colon was totally necrotic. Patient had total colectomy. On the OR table patient was very unstable with significantly low blood pressure and tachycardia. The abdomen was left open with the fascia not approximated and the skin was closed with vineet Pateint will need to return to the OR when more stable Appreciate General Surgery help (4) ITALO (acute kidney injury): Code(s): N17.9 - Acute kidney failure, unspecified Status: Acute Assessment and Plan: Patient presented with acute kidney injury with a creatinine of 1.42 (baseline creatinine of 0.78 on 02/12/2023) -patient has been adequately fluid-resuscitated at the outside hospital ER, [facility] ICU and the OR -continue maintenance IV fluids and albumin -continues to have urine output -will continue to monitor urine output, renal function electrolytes (5) AMS (altered mental status): Qualifiers: Altered mental status type: unspecified Qualified Code(s): R41.82 - Altered mental status, unspecified Code(s): R41.82 - Altered mental status, unspecified Status: Acute Assessment and Plan: Patient presented with altered mental status related to septic shock, bowel perforation, and acute respiratory failure -will manage underlying causes (6) COPD (chronic obstructive pulmonary disease): Code(s): J44.9 - Chronic obstructive pulmonary disease, unspecified Status: Acute Assessment and Plan: Started on bronchodilators (7) Hyperkalemia: Code(s): E87.5 - Hyperkalemia Status: Acute Assessment and Plan: Patient upon arrival to the ICU at [facility] was hyperkalemic with potassium of 6.3 -patient was sofia
[2023-03-10] MEDS: NOREPINEPHRINE 8 MG/D5W 250 ML 8 MG/250 ML BAG 15 MG IV CONT (20:11)
[2023-03-10] MEDS: CENTRAL LINE FLUSH 10 ML IV PUSH (22:06)
[2023-03-11] VITALS (72 sets, daily range): BP systolic 86–122; BP diastolic 43–75; PULSE 101–122; RESP 14–25; TEMP 37.4–38.1; O2SAT 96–99
[2023-03-11] MEDS: PIPERACILLN/TAZ 3.375GM/NS50ML 3.375 GM/50 ML BAG IVPB ×5 (00:19→23:37)
[2023-03-11] MEDS: ALBUMIN HUMAN 25% 25 GM/100 ML 100 ML IVPB ×5 (00:19→23:43)
[2023-03-11] MEDS: LACTATED RINGERS 1,000 ML 100 ML IV CONT ×3 (00:21→21:20)
[2023-03-11 01:19] LABS: Glucose Point of Care 110 mg/dl (65-105)
[2023-03-11] MEDS: IPRATROPIUM BR 0.02% INH SOLN 0.5 MG/2.5 ML VIAL INHALATION ×4 (02:15→20:37)
[2023-03-11] MEDS: LEVALBUTEROL NEB 1.25 MG/3 ML 0.63 MG INHALATION ×4 (02:15→20:37)
[2023-03-11] MEDS: VANCOMYCIN 1,000 MG/NS 250 ML 1,000 MG/250 ML BAG 250 MG IVPB (03:06)
[2023-03-11] MEDS: FENTANYL 2,500MCG/NS250ML(*CRX 2,500 MCG/250 ML BAG IV CONT (03:10)
[2023-03-11 05:13] LABS: Alveolar/Arterial O2 Gradient 245.8 mmHg; Base Excess ABG -2.5 mEq/l (+/-2.0); Carboxyhemoglobin 0.8 % THb (0-2.0); Fractional Inspired Oxygen 60 %; HCO3 ABG 20.4 mEq/l (22.0-26.0); Methemoglobin ABG 0.3 %THb (0-1.5); Oxygen Content ABG 14.1 %vol (16.0-22.0); Oxygen Saturation ABG 99.1 % (95.0-100.0); Oxyhemoglobin 97.7 % THb (90.0-100.0); PCO2 ABG 28.9 mmHg (35.0-45.0); PO2 ABG 150.2 mmHg (80.0-100.0); Reduced Hemoglobin 1.2 %THb (0-5.0); pH ABG 7.467 (7.350-7.450)
[2023-03-11 05:14] LABS: Device VENTILATOR; Site Drawn ARTLINE
[2023-03-11 05:15] LABS: Arterial Blood Gas PEEP 5 cmH2O; Arterial Blood Gas Tidal Volume 330 ml; Arterial Blood Gas Vent Mode CMV; Arterial Blood Gas Ventilator rate 24 /MIN
[2023-03-11 05:44] LABS: Hemoglobin 9.3 g/dL (12.0-15.0); Mean Corpuscular HGB Conc 33.2 g/dl (32-36); Mean Corpuscular Hemoglobin 26.8 pg (26-34); Mean Corpuscular Volume 80.7 fl (80-100); Mean Platelet Volume 12.5 fl (7.4-10.4); Platelet Count Result 121 k/mm3 (150-375); Red Blood Count 3.47 M/mm3 (4.2-5.4); Red Cell Distribution Width 15.7 % (11.5-14.5); White Blood Count 20.5 K/mm3 (4.5-10.0)
[2023-03-11 05:48] LABS: Ammonia 37 umol/L (9-30)
[2023-03-11 06:03] LABS: Alanine Aminotransferase 38 U/L (6-35); Albumin Level 3.3 g/dL (3.5-5.1); Alkaline Phosphatase 32 U/L (38-126); Anion Gap 10 mmol/L (8-16); Aspartate Amino Transferase 148 U/L (14-36); Bilirubin,Total 0.7 mg/dL (0.2-1.3); Blood Urea Nitrogen 26 mg/dL (7-17); Carbon Dioxide 22 mmol/L (22-30); Chloride 96 mmol/L (98-107); Estimated CRCL calculation 46 ml/min; Estimated Glomerular Filt Rate > 60; Glucose 95 mg/dL (65-110); Phosphorus 3.2 mg/dL (2.5-4.5); Potassium 3.9 mmol/L (3.4-5.0); Sodium 128 mmol/L (137-145)
[2023-03-11 06:14] LABS: Lactic Acid Reflex 4.1 mmol/L (0.7-2.0)
[2023-03-11] MEDS: HYDROCORTISONE SODIUM SUCCINATE 100 MG/2 ML VIAL IV PUSH ×3 (06:17→21:17)
[2023-03-11] MEDS: CENTRAL LINE FLUSH 10 ML IV PUSH ×3 (06:19→21:17)
[2023-03-11] MEDS: BUDESONIDE RESPULE NEB 0.5 MG/2 ML AMP INHALATION ×2 (08:08→20:37)
[2023-03-11 08:10] LABS: Band Neutrophils Percent 52 % (0-6); Lymphocytes Absolute Manual 2.05 K/mm3 (1.1-4.5); Metamyelocytes Percent 1 %; Monocytes Absolute Manual 0.82 K/mm3 (0.1-0.90); Monocytes Percent Manual 4 % (3-9); Neutrophils Absolute Manual 17.42 K/mm3 (1.7-7.2); Neutrophils Percent Manual 33 % (46-73); Schistocytes None Seen (NORMAL); Total Cells Counted 100
[2023-03-11 08:11] LABS: Burr Cells 1+ (NORMAL); Hypochromasia 1+ (NORMAL)
[2023-03-11] MEDS: MINERAL OIL/WHITE PETROLATUM OINTMENT 1 APPLIC EACH EYE ×2 (08:20→21:17)
[2023-03-11] MEDS: PANTOPRAZOLE SODIUM IV 40 MG VIAL IV PUSH (08:20)
[2023-03-11] MEDS: SODIUM CHLORIDE 0.9% IV 500 ML IV CONT (08:20)
[2023-03-11 08:44] LABS: Reflex Lactic Acid Yes or No Add Lactic
[2023-03-11 11:31] LABS: Lactic Acid 3.4 mmol/L (0.7-2.0)
--- NOTE | 2023-03-11 11:33 | WPDINTPN ---
Progress Note: A&P Assessment and Plan (1) Acute respiratory failure: Code(s): J96.00 - Acute respiratory failure, unspecified whether with hypoxia or hypercapnia Status: Acute Assessment and Plan: Acute respiratory failure likely related to sepsis, septic shock -03/09: patient intubated at the outside hospital ER -remains on CMV mode of ventilation, peep of 5, 55% FiO2, -ABGs reviewed, ventilator adjusted, wean FiO2 to maintain O2 sats greater than 92% -low tidal volume strategy to avoid volu-trauma -sedated with fentanyl infusion -03/11: chest x-ray and ABGs reviewed, will decrease respiratory rate to 20, decrease FiO2 to 50%, advanced ETT in 2 cm (2) Septic shock: Code(s): A41.9 - Sepsis, unspecified organism; R65.21 - Severe sepsis with septic shock Status: Acute Assessment and Plan: Patient presented with hypotension, shortness of breath, acute kidney injury, found to have Acute surgical abdomen secondary to perforated bowel s/p Exploratory laparotomy with total colectomy for Necrotic colon with perforation, -patient is off epinephrine, vasopressin and norepinephrine -remains on Atul-Synephrine, heart rate is much improved -maintain MAP > 65 mmHg are SBP > 100 mmHg at all times for adequate end organ perfusion -03/10: left femoral arterial line was placed -patient has been adequately fluid-resuscitated -currently on maintenance fluids LR follow-up insensible fluid loss, as she had a lot of drainage from abdominal incision and NG tube --continue albumin for volume expansion -improved urine output with normalization of her creatinine -continue Zosyn and vancomycin (03/09) -continue stress dose steroids, will start weaning once she is off all pressors -03/09 blood cultures preliminary blood cultures negative x2 -03/10 sputum cultures budding yeast with pseudohyphae (3) ITALO (acute kidney injury): Code(s): N17.9 - Acute kidney failure, unspecified Status: Acute Assessment and Plan: Patient presented with acute kidney injury with a creatinine of 1.42 (baseline creatinine of 0.78 on 02/12/2023) -patient has been adequately fluid-resuscitated at the outside hospital ER, [facility] ICU and the OR -continue maintenance IV fluids and albumin -good urine output, creatinine has normalized -will continue to monitor urine output, renal function electrolytes (4) AMS (altered mental status): Qualifiers: Altered mental status type: unspecified Qualified Code(s): R41.82 - Altered mental status, unspecified Code(s): R41.82 - Altered mental status, unspecified Status: Acute Assessment and Plan: Patient presented with altered mental status which most likely related to septic shock, bowel perforation, acute respiratory failure -will manage underlying causes -patient on fentanyl infusion, opens her eyes and follows simple commands in all extremities (5) Bowel perforation: Code(s): K63.1 - Perforation of intestine (nontraumatic) Status: Acute Assessment and Plan: 03/09: Initial CT scan of the abdomen/pelvis at the outside hospital ER did not show any perforation or free air does dilated and thickened colon suggestive of enterocolitis 03/09: Repeat CT scan abdomen pelvis at [facility] ICU was performed because of abdominal distension and rigid abdomen which showed interval development of free air in the abdomen with likely perforation somewhere near the cecum. Patient underwent ex lap with total colectomy: According to the operative notes the whole colon from the terminal ileum all the way down to the mid sigmoid colon was totally necrotic. Patient had total colectomy. On the OR table patient was very unstable with significantly low blood pressure, and tachycardia, the fascia was left approximated abdominal was closed with vineet in the skin and was transferred to the ICU Discussed with surgeon, patient will be taken to the OR for closure o
--- NOTE | 2023-03-11 12:07 | WPDPN ---
Progress Note: A&P Assessment and Plan (1) Septic shock: Code(s): A41.9 - Sepsis, unspecified organism; R65.21 - Severe sepsis with septic shock Status: Acute Assessment and Plan: Patient continues to slowly improve. Source control with total colectomy has been done due to a necrotic colon. She continues on vancomycin, Zosyn, and Flagyl. She has been weaned down to 1 pressor which is urgent (2) Acute respiratory failure: Code(s): J96.00 - Acute respiratory failure, unspecified whether with hypoxia or hypercapnia Status: Acute Assessment and Plan: Continue vent management support as per supervisor sawmill. Vent support has been decreasing. (3) Bowel perforation: Code(s): K63.1 - Perforation of intestine (nontraumatic) Status: Acute Assessment and Plan: Patient will need to return to the operating room at some point here maybe tomorrow for washout of the abdomen and placement of end ileostomy and then closure of the abdomen status possible. Given the bowel edema and bowel wall edema it may not be possible to close the abdomen. In that case then she will likely have bridging with biosynthetic or Vicryl mesh. Closure of the abdomen too tightly might cause abdominal compartment syndrome or problems being able to wean the ventilator. More than likely she will have partial closure of the abdomen with bridging with absorbable mesh. We will see how her clinical status tomorrow and make a decision as to whether she returns entering tomorrow. Subjective Date/time seen: 03/11/23 12:07 Interval history: Patient is showing improvement. She is actually awake now and following some commands. Definitely response to voice and painful stimulus. She has been weaned down to 1 pressor at this point. Good urine output. Vent settings have also been decreasing. Exam GI: Other: Abdomen dressed but distended with abdominal wall edema. The abdomen is essentially open with no approximation of the fascia. Skin is closed with vineet. Drainage is typical peritoneal fluid drainage and third-spacing fluid. No bleeding. Neuro: Other: Patient does respond to painful and voice stimulus. Patient does seem to follow some commands quite nursing staff. Objective Data Vital Signs Vital Signs: Vital Signs - 24 hr 03/10/23 12:08 03/10/23 12:17 03/10/23 12:38 Temperature Pulse Rate 147 H 147 H 145 H Respiratory Rate Blood Pressure 143/75 H 141/74 H 139/75 Pulse Oximetry Oxygen Delivery Fraction of Inspired Oxygen 03/10/23 12:59 03/10/23 13:19 03/10/23 13:42 Temperature Pulse Rate 145 H 140 H 137 H Respiratory Rate Blood Pressure 133/72 130/72 128/71 Pulse Oximetry Oxygen Delivery Fraction of Inspired Oxygen 03/10/23 14:11 03/10/23 14:11 03/10/23 14:40 Temperature Pulse Rate 136 H 136 H 138 H Respiratory Rate 24 H Blood Pressure 130/71 Pulse Oximetry 95 Oxygen Delivery Mechanical Ventilation Fraction of Inspired Oxygen 45 03/10/23 15:05 03/10/23 14:00 03/10/23 14:00 Temperature 37.7 C H Pulse Rate 137 H 136 H 136 H Respiratory Rate 24 H Blood Pressure 120/66 127/71 Pulse Oximetry 95 Oxygen Delivery Fraction of Inspired Oxygen 03/10/23 15:32 03/10/23 14:00 03/10/23 14:00 Temperature Pulse Rate 136 H 136 H 136 H Respiratory Rate 24 H Blood Pressure 122/68 127/71 Pulse Oximetry Oxygen Delivery Fraction of Inspired Oxygen 03/10/23 15:45 03/10/23 16:00 03/10/23 16:00 Temperature Pulse Rate 136 H 136 H Respiratory Rate Blood Pressure 123/66 124/69 Pulse Oximetry 95 Oxygen Delivery Mechanical Ventilation Fraction of Inspired Oxygen 45 03/10/23 16:00 03/10/23 16:18 03/10/23 16:00 Temperature 37.8 C H Pulse Rate 136 H 135 H 136 H Respiratory Rate 24 H Blood Pressure 125/69 123/68 Pulse Oximetry 94 Oxygen Delivery Fraction of Inspired Oxygen
[2023-03-11 12:37] LABS: Glucose Point of Care 95 mg/dl (65-105)
[2023-03-11 13:17] LABS: INR 2.1; Prothrombin Time 24.7 Seconds (11.1-14.7)
[2023-03-11] MEDS: PHYTONADIONE ADULT INJ 10 MG in DEXTROSE 5% IN WATER 50 ML 100 MG IVPB (14:44)
[2023-03-11] MEDS: SODIUM CHLORIDE 0.9% IV 250 ML 30 ML IV CONT (15:30)
[2023-03-11 17:45] LABS: Glucose Point of Care 104 mg/dl (65-105)
[2023-03-12] VITALS (39 sets, daily range): BP systolic 103–146; BP diastolic 51–90; PULSE 83–112; RESP 16–22; TEMP 35.9–37.9; O2SAT 96–100; BMI 24.0
[2023-03-12 00:22] LABS: Glucose Point of Care 107 mg/dl (65-105)
[2023-03-12] MEDS: LEVALBUTEROL NEB 1.25 MG/3 ML 0.63 MG INHALATION ×3 (03:00→14:52)
[2023-03-12] MEDS: IPRATROPIUM BR 0.02% INH SOLN 0.5 MG/2.5 ML VIAL INHALATION ×3 (03:01→14:52)
[2023-03-12] MEDS: HYDROCORTISONE SODIUM SUCCINATE 100 MG/2 ML VIAL IV PUSH ×3 (05:19→21:43)
[2023-03-12] MEDS: CENTRAL LINE FLUSH 10 ML IV PUSH ×3 (05:19→21:35)
[2023-03-12] MEDS: PIPERACILLN/TAZ 3.375GM/NS50ML 3.375 GM/50 ML BAG IVPB ×3 (05:19→17:02)
[2023-03-12 05:24] LABS: Alveolar/Arterial O2 Gradient 120.4 mmHg; Base Excess ABG 1.8 mEq/l (+/-2.0); Carboxyhemoglobin 0.7 % THb (0-2.0); Fractional Inspired Oxygen 35 %; HCO3 ABG 24.6 mEq/l (22.0-26.0); Methemoglobin ABG 0.2 %THb (0-1.5); Oxygen Saturation ABG 97.7 % (95.0-100.0); PCO2 ABG 31.7 mmHg (35.0-45.0); PO2 ABG 92.3 mmHg (80.0-100.0); PO2 FiO2 Ratio Arterial Blood 2.64 %; Reduced Hemoglobin 3.1 %THb (0-5.0); Total Hemoglobin 10.3 g/dL (12.0-18.0)
[2023-03-12 05:26] LABS: Modified Allen's Test Pass; Site Drawn ARTLINE; pH ABG 7.507 (7.350-7.450)
[2023-03-12 05:27] LABS: Arterial Blood Gas PEEP 5 cmH2O; Arterial Blood Gas Vent Mode CMV; Arterial Blood Gas Ventilator rate 20 /MIN; Device VENTILATOR
[2023-03-12 05:28] LABS: Arterial Blood Gas Tidal Volume 330 ml
[2023-03-12 05:39] LABS: Basophils Percent Auto 0.1 % (0.2-1.2); Eosinophils Percent Auto 0.2 % (0-4.4); Hematocrit 23.7 % (37.0-47.0); Hemoglobin 7.7 g/dL (12.0-15.0); Immature Granulocyte Absolute 0.11 K/mm3 (0.00-0.031); Immature Granulocyte Percent A 0.6 % (0-0.5); Immature Platelet Fraction Pct 19.4 % (0.9-11.2); Lymphocytes Absolute Auto 0.35 K/mm3 (0.9-3.2); Lymphocytes Percent Auto 1.9 % (18.3-44.2); Mean Corpuscular HGB Conc 32.5 g/dl (32-36); Mean Corpuscular Hemoglobin 26.1 pg (26-34); Mean Corpuscular Volume 80.3 fl (80-100); Monocytes Absolute Auto 0.7 K/mm3 (0.1-0.6); Monocytes Percent Auto 3.7 % (2.6-8.5); Neutrophils Absolute Auto 16.9 K/mm3 (1.3-6.7); Neutrophils Percent Auto 93.5 % (45.5-73.1); Nucleated Red Blood Cells Perc 0.2 % (0.0-0.2); Platelet Count Result 72 k/mm3 (150-375); Red Blood Count 2.95 M/mm3 (4.2-5.4); Red Cell Distribution Width 15.2 % (11.5-14.5)
[2023-03-12 05:45] LABS: Lactic Acid Reflex 1.7 mmol/L (0.7-2.0)
[2023-03-12 05:46] LABS: Ammonia < 9 umol/L (9-30); INR 1.5; Prothrombin Time 18.9 Seconds (11.1-14.7)
[2023-03-12 05:47] LABS: Partial Thromboplastin Time 42.3 SECONDS (22.3-36.8)
[2023-03-12 05:50] LABS: Alanine Aminotransferase 47 U/L (6-35); Albumin Level 3.5 g/dL (3.5-5.1); Alkaline Phosphatase 47 U/L (38-126); Anion Gap 9 mmol/L (8-16); Aspartate Amino Transferase 153 U/L (14-36); Bilirubin,Total 1.4 mg/dL (0.2-1.3); Blood Urea Nitrogen 21 mg/dL (7-17); Calcium 7.8 mg/dL (8.4-10.2); Carbon Dioxide 25 mmol/L (22-30); Chloride 99 mmol/L (98-107); Estimated CRCL calculation 42 ml/min; Estimated Glomerular Filt Rate > 60; Glucose 83 mg/dL (65-110); Magnesium 2.1 mg/dL (1.6-2.3); Phosphorus 2.6 mg/dL (2.5-4.5); Potassium 3.2 mmol/L (3.4-5.0); Sodium 133 mmol/L (137-145)
[2023-03-12 06:33] LABS: Hypochromasia 2+ (NORMAL); Platelet Estimate Decreased (Adequate)
[2023-03-12 06:34] LABS: Anisocytosis 2+ (NORMAL); Schistocytes None Seen (NORMAL)
[2023-03-12] MEDS: LACTATED RINGERS 1,000 ML 75 ML IV CONT ×2 (08:08→21:43)
[2023-03-12] MEDS: BUDESONIDE RESPULE NEB 0.5 MG/2 ML AMP INHALATION (08:27)
[2023-03-12] MEDS: MIDAZOLAM HCL (*CRX) 2 MG/2 ML VIAL IV PUSH (08:35)
[2023-03-12] MEDS: FENTANYL 2,500MCG/NS250ML(*CRX 2,500 MCG/250 ML BAG 12.5 MCG IV CONT (08:37)
[2023-03-12] MEDS: MIDAZOLAM 100MG/NS 100ML(*CRX) 100 MG/100 ML BAG IV CONT (08:39)
[2023-03-12] MEDS: fentaNYL CITRATE INJ (*CRX) 100 MCG/2 ML VIAL 25 MCG IV PUSH (08:41)
[2023-03-12] MEDS: KCL 40 MEQ/WATER 100 ML 100 ML 25 ML IVPB (08:41)
[2023-03-12] MEDS: PANTOPRAZOLE SODIUM IV 40 MG VIAL IV PUSH (08:44)
--- NOTE | 2023-03-12 09:34 | PCWOUND ---
WOCN NOTE unable to turn patient at this time. will assess buttock when patient is stable. spoke with Dr Kim, he is taking her to surgery today for ostomy formation and possible wound vac placement.
--- NOTE | 2023-03-12 10:40 | WPDHPUPDATE1 ---
History and Physical Update Update Date/Time: 03/12/23 10:40 History and Physical has been reviewed, including an updated exam of the patient. There are NO changes in the patient's condition. Risks, benefits, and alternatives have been discussed and questions answered. Patient agrees to proceed with procedure.
--- NOTE | 2023-03-12 10:40 | WPDPN ---
Progress Note: A&P Assessment and Plan (1) Septic shock: Code(s): A41.9 - Sepsis, unspecified organism; R65.21 - Severe sepsis with septic shock Status: Acute Assessment and Plan: Sepsis is improving. White blood count is around 20,000. Continue broad-spectrum IV antibiotics. We will go to the operating room today that she is more hemodynamically stable to place end ileostomy and to attempt closure of the abdomen. (2) Bowel perforation: Code(s): K63.1 - Perforation of intestine (nontraumatic) Status: Acute Assessment and Plan: To the OR today for abdominal washout and placement of an ileostomy and abdominal closure. Continue IV antibiotics. Status post total colectomy 3 days ago for totally necrotic colon. Subjective Date/time seen: 03/12/23 10:40 Interval history: Patient is postop day 3 after emergent exploratory laparotomy and total colectomy. Postoperatively she has been able to survive for severe sepsis and has actually improved. She was initially on 4 pressors but has now been weaned down to 1 pressor. She is now awake and actually follows commands on the ventilator. Lower extremities have either palpable or dopplerable pulses. Renal function remains good without evidence of ITALO. Exam GI: Other: Abdomen is distended but skin is approximated with vineet. No evisceration of bowel above the skin. Body wall anasarca. No bleeding. Serous drainage from the abdominal wall. There is a portion the skin around the umbilicus which seems to be ischemic and likely will have to be resected. Objective Data Vital Signs Vital Signs: Vital Signs - 24 hr 03/11/23 10:55 03/11/23 11:35 03/11/23 11:30 Temperature Pulse Rate 108 H Respiratory Rate Blood Pressure 95/52 L 86/43 L Pulse Oximetry 97 Oxygen Delivery Mechanical Ventilation Fraction of Inspired Oxygen 45 03/11/23 11:41 03/11/23 11:43 03/11/23 12:00 Temperature 37.7 C H Pulse Rate 107 H 104 H Respiratory Rate 24 H 15 Blood Pressure 87/44 L 100/52 L Pulse Oximetry 98 Oxygen Delivery Fraction of Inspired Oxygen 03/11/23 13:03 03/11/23 13:13 03/11/23 13:14 Temperature Pulse Rate 111 H 118 H Respiratory Rate 23 H Blood Pressure 116/65 108/58 L Pulse Oximetry Oxygen Delivery Fraction of Inspired Oxygen 03/11/23 14:10 03/11/23 14:21 03/11/23 14:31 Temperature Pulse Rate 105 H Respiratory Rate 22 H Blood Pressure 116/65 112/61 Pulse Oximetry Oxygen Delivery Fraction of Inspired Oxygen 03/11/23 14:32 03/11/23 14:41 03/11/23 14:45 Temperature Pulse Rate 101 H 101 H 103 H Respiratory Rate 20 Blood Pressure 107/60 Pulse Oximetry 99 Oxygen Delivery Mechanical Ventilation Fraction of Inspired Oxygen 35 03/11/23 14:00 03/11/23 11:35 03/11/23 12:00 Temperature 37.4 C Pulse Rate 104 H Respiratory Rate 14 Blood Pressure 110/62 Pulse Oximetry 98 Oxygen Delivery Fraction of Inspired Oxygen 45 45 03/11/23 14:30 03/11/23 15:20 03/11/23 12:00 Temperature 37.5 C Pulse Rate 104 H Respiratory Rate 20 Blood Pressure 106/60 Pulse Oximetry 96 98 Oxygen Delivery Mechanical Ventilation Fraction of Inspired Oxygen 35 45 03/11/23 11:35 03/11/23 14:30 03/11/23 15:36 Temperature 37.5 C Pulse Rate 114 H Respiratory Rate 24 H Blood Pressure 100/55 L Pulse Oximetry 96 96 97 Oxygen Delivery Mechanical Ventilation Mechanical Ventilation Fraction of Inspired Oxygen 45 35 03/11/23 15:49 03/11/23 15:51 03/11/23 15:56 Temperature Pulse Rate 111 H Respiratory Rate Blood Pressure 109/64 Pulse Oximetry 97 Oxygen Delivery Mechanical Ventilation Fraction of Inspired Oxygen 35 35 03/11/23 15:57 03/11/23 15:57 03/11/23 12:00 Temperature 37.5 C 37.5 C Pulse Rate 109 H 109 H 103 H Respiratory Rate 20 20 Blood Pressure 102/61 103/61 Pulse Oximetry 97 98 Oxygen De
--- NOTE | 2023-03-12 10:48 | WPDINTPN ---
Progress Note: A&P Assessment and Plan (1) Acute respiratory failure: Code(s): J96.00 - Acute respiratory failure, unspecified whether with hypoxia or hypercapnia Status: Acute Assessment and Plan: Acute respiratory failure likely related to sepsis, septic shock -03/09: patient intubated at the outside hospital ER -remains on CMV mode of ventilation, peep of 5, 55% FiO2, -ABGs reviewed, ventilator adjusted, wean FiO2 to maintain O2 sats greater than 92% -low tidal volume strategy to avoid volu-trauma -sedated with fentanyl infusion 03/12: Continue mechanical ventilation as patient going for surgery today, started on Versed infusion as patient getting anxious. (2) Septic shock: Code(s): A41.9 - Sepsis, unspecified organism; R65.21 - Severe sepsis with septic shock Status: Acute Assessment and Plan: Patient presented with hypotension, shortness of breath, acute kidney injury, found to have Acute surgical abdomen secondary to perforated bowel s/p Exploratory laparotomy with total colectomy for Necrotic colon with perforation, -patient is off epinephrine, vasopressin and norepinephrine -remains on Atul-Synephrine, heart rate is much improved -maintain MAP > 65 mmHg are SBP > 100 mmHg at all times for adequate end organ perfusion -03/10: left femoral arterial line was placed -patient has been adequately fluid-resuscitated -currently on maintenance fluids LR follow-up insensible fluid loss, as she had a lot of drainage from abdominal incision and NG tube --continue albumin for volume expansion -improved urine output with normalization of her creatinine -continue Zosyn and vancomycin (03/09) -continue stress dose steroids, will start weaning once she is off all pressors -03/09 blood cultures preliminary blood cultures negative x2 -03/10 sputum cultures budding yeast with pseudohyphae (3) ITALO (acute kidney injury): Code(s): N17.9 - Acute kidney failure, unspecified Status: Acute Assessment and Plan: Patient presented with acute kidney injury with a creatinine of 1.42 (baseline creatinine of 0.78 on 02/12/2023) -patient has been adequately fluid-resuscitated at the [facility] ER, [facility] ICU and the OR -continue maintenance IV fluids and albumin -good urine output, creatinine has normalized -will continue to monitor urine output, renal function electrolytes (4) AMS (altered mental status): Qualifiers: Altered mental status type: unspecified Qualified Code(s): R41.82 - Altered mental status, unspecified Code(s): R41.82 - Altered mental status, unspecified Status: Acute Assessment and Plan: Patient presented with altered mental status which most likely related to septic shock, bowel perforation, acute respiratory failure -will manage underlying causes -patient on fentanyl infusion, opens her eyes and follows simple commands in all extremities (5) Bowel perforation: Code(s): K63.1 - Perforation of intestine (nontraumatic) Status: Acute Assessment and Plan: 03/09: Initial CT scan of the abdomen/pelvis at the outside hospital ER did not show any perforation or free air does dilated and thickened colon suggestive of enterocolitis 03/09: Repeat CT scan abdomen pelvis at [facility] ICU was performed because of abdominal distension and rigid abdomen which showed interval development of free air in the abdomen with likely perforation somewhere near the cecum. Patient underwent ex lap with total colectomy: According to the operative notes the whole colon from the terminal ileum all the way down to the mid sigmoid colon was totally necrotic. Patient had total colectomy. On the OR table patient was very unstable with significantly low blood pressure, and tachycardia, the fascia was left approximated abdominal was closed with vineet in the skin and was transferred to the ICU Discussed with surgeon, patient will be taken to the OR
--- NOTE | 2023-03-12 11:07 | WPDANESEPPF ---
Anes - Initial Pre Proc Eval Procedure: Operation Date: 03/12/23 15:00 Proposed Procedures p Abdominal Washout, Placement End Ileostomy, Abdominal Wall Closure, Possible Small Bowel Resection - Gabe Kim MD Date/Time: 03/12/23 11:07 Surgeon: Harris Lerner MD Pre Op Diagnosis: Ileus vs SBO Patient Data Age: 62 Gender: F Height: 1.57 m Weight: 59.8 kg Last Vital Signs Temp 37.0 C 03/12/23 10:00 Pulse 86 03/12/23 10:10 Resp 16 03/12/23 10:10 BP 132/70 03/12/23 10:09 Pulse Ox 100 03/12/23 10:00 O2 Del Method Mechanical Ventilation 03/12/23 08:38 FiO2 35 03/12/23 08:38 Allergies Allergy/AdvReac Type Severity Reaction Status Date / Time morphine Allergy Unknown Verified 03/09/23 08:51 Sulfa (Sulfonamide Allergy Unknown Verified 03/09/23 08:51 Antibiotics) Home Medications Medication Instructions Recorded Confirmed Type acetaminophen 325 mg tablet 650 mg PO Q4-6H PRN Pain 03/09/23 03/09/23 History albuterol sulfate 90 mcg/actuation 2 puff inhalation Q4-6H PRN 03/09/23 03/09/23 History aerosol inhaler Shortness Of Breath Or Wheezing budesonide-formoterol HFA 80 2 puff inhalation BID 03/09/23 03/09/23 History mcg-4.5 mcg/actuation aerosol inhaler (Symbicort) citalopram 10 mg tablet 10 mg PO DAILY 03/09/23 03/09/23 History citalopram 20 mg tablet 20 mg PO DAILY 03/09/23 03/09/23 History diazepam 5 mg tablet 5 mg PO QID 03/09/23 03/09/23 History dicyclomine 20 mg tablet 10 mg PO DAILY Abdominal Pain 03/09/23 03/09/23 History food supplemt, lactose-reduced 1 ea PO TID 03/09/23 03/09/23 History 0.04 gram-1.05 kcal/mL oral liquid (Ensure Original) gabapentin 300 mg capsule 300 mg PO HS 03/09/23 03/09/23 History hydrocodone 10 mg-acetaminophen 1 tablet PO TID PRN Pain 03/09/23 03/09/23 History 325 mg tablet hydroxyzine pamoate 25 mg capsule 25 mg PO QID PRN Anxiety 03/09/23 03/09/23 History indomethacin 25 mg capsule 25 mg PO BID 03/09/23 03/09/23 History lamotrigine 100 mg tablet 100 mg PO BID 03/09/23 03/09/23 History levothyroxine 50 mcg tablet 50 mcg PO DAILY 03/09/23 03/09/23 History meclizine 25 mg tablet 25 mg PO TID PRN Dizziness Or 03/09/23 03/09/23 History Vertigo naproxen 500 mg tablet 500 mg PO BID PRN Pain 03/09/23 03/09/23 History omeprazole 10 mg capsule,delayed 10 mg PO DAILY 03/09/23 03/09/23 History release paliperidone palmitate 156 mg/mL 156 mg IM MONTHLY 03/09/23 03/09/23 History intramuscular syringe (Invega Sustenna) solifenacin 5 mg tablet 5 mg PO DAILY 03/09/23 03/09/23 History tizanidine 4 mg tablet 4 mg PO TID PRN Muscle Spasm 03/09/23 03/09/23 History Laboratory Tests 03/09/23 03/11/23 03/11/23 16:14 10:54 11:49 WBC RBC Hgb Hct MCV MCH MCHC RDW Plt Count MPV Immature Gran % (Auto) Neut % (Auto) Lymph % (Auto) [place] % (Auto) Eos % (Auto) Baso % (Auto) Lymph # (Auto) [place] # (Auto) Eos # (Auto) Baso # (Auto) Abs Immat Gran (auto) Absolute Neuts (auto) Absolute Nucleated RBC Nucleated RBC % Platelet Estimate % Immature Plt Fraction Hypochromasia Anisocytosis Schistocytes PT INR APTT Puncture Site ABG pH ABG pCO2 ABG pO2 ABG PO2/FiO2 Ratio ABG HCO3 ABG O2 Saturation ABG O2 Content ABG Base Excess A-a Gradient Oxyhemoglobin Carboxyhemoglobin Methemoglobin Reduced Hemoglobin Total Hemoglobin O2 Delivery Device O2 Liters/Min
--- NOTE | 2023-03-12 11:30 | PC.NURSE ---
pt taken to OR with OR staff; report given to GOLF MANAGER
--- NOTE | 2023-03-12 12:19 | SUR.OPER ---
patient arrived with endotracheal tube in per ICU RNs.
[2023-03-12 15:59] LABS: Vancomycin Trough 5.3 ug/mL (10.0-20.0)
[2023-03-12 16:17] LABS: Hematocrit 25.8 % (37.0-47.0); Hemoglobin 8.3 g/dL (12.0-15.0); Mean Corpuscular HGB Conc 32.2 g/dl (32-36); Mean Corpuscular Hemoglobin 25.9 pg (26-34); Mean Corpuscular Volume 80.6 fl (80-100); Mean Platelet Volume 11.9 fl (7.4-10.4); Platelet Count Result 72 k/mm3 (150-375); Red Cell Distribution Width 15.4 % (11.5-14.5); White Blood Count 18.5 K/mm3 (4.5-10.0)
[2023-03-12 16:28] LABS: Anion Gap 7 mmol/L (8-16); Blood Urea Nitrogen 21 mg/dL (7-17); Calcium 7.6 mg/dL (8.4-10.2); Carbon Dioxide 24 mmol/L (22-30); Chloride 103 mmol/L (98-107); Estimated CRCL calculation 50 ml/min; Estimated Glomerular Filt Rate > 60; Glucose 93 mg/dL (65-110); Potassium 3.6 mmol/L (3.4-5.0); Sodium 134 mmol/L (137-145)
[2023-03-12] MEDS: VANCOMYCIN 1,000 MG/NS 250 ML 1,000 MG/250 ML BAG 250 MG IVPB (17:02)
[2023-03-12 17:18] LABS: Glucose Point of Care 83 mg/dl (65-105)
--- NOTE | 2023-03-12 18:28 | PM.IMPN ---
Progress Note: A&P Assessment and Plan (1) Acute respiratory failure: Code(s): J96.00 - Acute respiratory failure, unspecified whether with hypoxia or hypercapnia Status: Acute Assessment and Plan: Acute respiratory failure related to septic shock -03/09: patient intubated at the outside hospital ER -remains on mechanical ventilation and in critical condition -Ventilator adjustment per brancher Appreciate brancher input (2) Septic shock: Code(s): A41.9 - Sepsis, unspecified organism; R65.21 - Severe sepsis with septic shock Status: Acute Assessment and Plan: Patient presented with hypotension and found to be in septic shock with fevers, AMS, ITALO, tachycardia, lactic acidosis and HoTN Found to have acute surgical abdomen secondary to perforated bowel Status post exploratory laparotomy with total colectomy for necrotic colon with perforation 03/09/23 -patient was on 4 pressors (norepinephrine, Atul-Synephrine, vasopressin and epinephrine) but able to wean off -maintain MAP>65 and SBP>100 at all times for adequate end organ perfusion -BCx 03/09 NGTD -Sputum Cx 03/10 pending -Left femoral arterial line was placed 03/10 -patient has been adequately fluid-resuscitated -WBC 18K with 44% bandemia. lactic at 3.5 -UOP 1375 yesterday and 1200mL so far today. -Started on Zosyn and vancomycin (03/09) -Stress dose steroids added 03/10 Continue IV abx. (3) Bowel perforation: Code(s): K63.1 - Perforation of intestine (nontraumatic) Status: Acute Assessment and Plan: Patient presents to the OSH with AMS and also with abdominal pain with distention. CT Abd/pelvis performed 03/09 did not show perforation or free air but did show fluid levels in the small and large bowel with prominent amount of fecal material in the colon and gaseous distention. Repeat CT scan abdomen pelvis 03/09 at [facility] ICU was performed because of surgical abdomen which showed interval development of free air adjacent to the cecum. General Surgery consulted and patient underwent ex lap with total colectomy. According to the operative notes the whole colon from the terminal ileum all the way down to the mid sigmoid colon was totally necrotic. Patient had total colectomy. On the OR table patient was very unstable with significantly low blood pressure and tachycardia. The abdomen was left open with the fascia not approximated and the skin was closed with vineet Patient was stabilized in the ICU. Patientw returned to OR today for closure and ostomy placement 03/12/23 Appreciate General Surgery help (4) ITALO (acute kidney injury): Code(s): N17.9 - Acute kidney failure, unspecified Status: Acute Assessment and Plan: Patient presented with acute kidney injury with a creatinine of 1.42 (baseline creatinine of 0.78 on 02/12/2023) -patient was adequately fluid-resuscitated at the outside hospital ER, [facility] ICU and the OR -having good urine output -Cr back to normal. -will continue to monitor urine output, renal function and electrolytes (5) AMS (altered mental status): Qualifiers: Altered mental status type: unspecified Qualified Code(s): R41.82 - Altered mental status, unspecified Code(s): R41.82 - Altered mental status, unspecified Status: Acute Assessment and Plan: Patient presented with altered mental status related to septic shock, bowel perforation, and acute respiratory failure -will manage underlying causes (6) COPD (chronic obstructive pulmonary disease): Code(s): J44.9 - Chronic obstructive pulmonary disease, unspecified Status: Acute Assessment and Plan: Started on bronchodilators (7) Hyperkalemia: Code(s): E87.5 - Hyperkalemia Status: Acute Assessment and Plan: Patient upon arrival to the ICU at [facility] was hyperkalemic with potassium of 6.3 -patient was treated -potassium l
--- NOTE | 2023-03-12 19:34 | W.PM.PROC2 ---
Procedure Note - Detailed Date of Procedure 03/12/23 Pre-op Diagnosis Sepsis secondary to necrotic colon, status post subtotal colectomy and open abdomen secondary to hemodynamic instability during surgery. Post-op Diagnosis Same Procedure Performed Second look exploratory laparotomy, completion sigmoid colectomy, segmental small bowel resection, placement of end ileostomy, and abdominal wall closure. Surgeon Gabe Kim MD Baby Registry Sales Consultant RICHARD Flowers Anesthesia General Indications Patient is a 62-year-old female who 3 days ago underwent a emergent exploratory laparotomy for an acute surgical abdomen. Findings showed a totally necrotic: Extending all the way from the ileocecal valve all the way to the mid sigmoid colon. There was only some small perforation. Due to hemodynamic instability during the surgery after the subtotal colectomy there was decision made not to proceed with placed the end ileostomy as she was too unstable. The fascia was left open and the skin was closed over the bowel which is skin vineet the patient was taken emergently back to the intensive care unit for critical care management. She presents now for second-look laparotomy and closure of the abdomen with placement end ileostomy and she is now much more hemodynamically stable. Findings The patient actually had minimal contamination in the abdomen. There were no abscesses to be drained and really no necrotic tissue. The small bowel places had then adhesions which were easily divided with finger fracture. There was ischemia of about a 3cm segment of the distal terminal ileum about 5cm proximal to the staple line. The remaining portion of the sigmoid colon was also ischemic and close to being necrotic. The edges of the fascia had retracted but at the end of the case I was able to close the fascia over the bowel in a primary fashion without undue increase in the patient's peak pressures on ventilation. Description of Procedure Consent to proceed with surgery due to medical necessity by myself and the diesel service journeyman was obtained and documented. Patient had no family members or contacts who had the power to consent for her and she had no power of cook house laborer or guardian. She was then brought directly from the intensive care unit to the operating room. She was placed under general anesthesia and the abdomen was then prepped and draped usual sterile fashion. A time-out was then performed correctly identifying the patient as well as procedure to be performed and verified she was already on scheduled IV antibiotics. We then proceeded remove the vineet which were approximating the edges of the skin. Once this was done the skin retracted and the abdomen was opened. Underneath the skin was loops of small bowel which were somewhat matted but to be easily with finger fracturing. I did this throughout most of the bowel but there was 1 portion in the left lower quadrant that had adhesions released with sharp careful scissor adhesiolysis are. Once this was done I then could identify that there was about a 3cm area of the ileum which was ischemic and this was about 5cm away from the and of the small bowel at the staple line. Then proceeded to resect this portion of the terminal ileum. A defect was made through the mesentery just proximal to the area of ischemia. Great care was taken to not to divide any of the vessels going to the portion of the small bowel which was being kept. I then divided the small bowel in this area with a MILLIE 55 stapler. The mesentery to the small segment of bowel was then divided utilizing the LigaSure device specimen was then tagged with a suture at the proximal viable margin and sent to pathology for examination. I then explored down into the pelvis and there was no pelvic abscess. I did find that the remaining 1/2 of the sigmoid colon was very ischemic and almost necrotic. I then proceeded to resect the remaining portion of the sigmoid colon.
[2023-03-12] MEDS: MINERAL OIL/WHITE PETROLATUM OINTMENT 1 APPLIC EACH EYE (21:34)
[2023-03-13] VITALS (37 sets, daily range): BP systolic 93–137; BP diastolic 48–66; PULSE 83–135; RESP 16–30; TEMP 36.6–37.9; O2SAT 94–100
[2023-03-13 00:08] LABS: Glucose Point of Care 90 mg/dl (65-105)
[2023-03-13] MEDS: PIPERACILLN/TAZ 3.375GM/NS50ML 3.375 GM/50 ML BAG IVPB ×5 (00:15→23:49)
[2023-03-13] MEDS: IPRATROPIUM BR 0.02% INH SOLN 0.5 MG/2.5 ML VIAL INHALATION ×4 (03:19→20:17)
[2023-03-13] MEDS: LEVALBUTEROL NEB 1.25 MG/3 ML 0.63 MG INHALATION ×4 (03:19→20:17)
--- NOTE | 2023-03-13 03:22 | PCRCNOTE ---
Window of time for administration has passed. See next scheduled administration.
[2023-03-13] MEDS: FENTANYL 2,500MCG/NS250ML(*CRX 2,500 MCG/250 ML BAG IV CONT (04:53)
[2023-03-13] MEDS: CENTRAL LINE FLUSH 10 ML IV PUSH ×2 (05:32→20:57)
[2023-03-13] MEDS: HYDROCORTISONE SODIUM SUCCINATE 100 MG/2 ML VIAL IV PUSH ×2 (05:32→18:06)
[2023-03-13 05:34] LABS: Basophils Absolute Auto 0.1 K/mm3 (0.0-0.1); Basophils Percent Auto 0.4 % (0.2-1.2); Hematocrit 23.5 % (37.0-47.0); Hemoglobin 7.6 g/dL (12.0-15.0); Immature Granulocyte Percent A 1.2 % (0-0.5); Immature Platelet Fraction Pct 17.1 % (0.9-11.2); Lymphocytes Absolute Auto 0.37 K/mm3 (0.9-3.2); Lymphocytes Percent Auto 2.3 % (18.3-44.2); Mean Corpuscular HGB Conc 32.3 g/dl (32-36); Mean Corpuscular Hemoglobin 26.1 pg (26-34); Mean Corpuscular Volume 80.8 fl (80-100); Mean Platelet Volume 11.9 fl (7.4-10.4); Monocytes Percent Auto 6.2 % (2.6-8.5); Neutrophils Absolute Auto 14.4 K/mm3 (1.3-6.7); Neutrophils Percent Auto 89.9 % (45.5-73.1); Platelet Count Result 71 k/mm3 (150-375); Red Blood Count 2.91 M/mm3 (4.2-5.4); Red Cell Distribution Width 15.1 % (11.5-14.5); White Blood Count 16.1 K/mm3 (4.5-10.0)
[2023-03-13 05:43] LABS: Ammonia < 9 umol/L (9-30); Lactic Acid Reflex 0.9 mmol/L (0.7-2.0)
[2023-03-13 05:45] LABS: Alanine Aminotransferase 59 U/L (6-35); Albumin Level 2.7 g/dL (3.5-5.1); Alkaline Phosphatase 57 U/L (38-126); Anion Gap 8 mmol/L (8-16); Aspartate Amino Transferase 176 U/L (14-36); Bilirubin,Total 1.9 mg/dL (0.2-1.3); Blood Urea Nitrogen 21 mg/dL (7-17); Calcium 7.8 mg/dL (8.4-10.2); Carbon Dioxide 23 mmol/L (22-30); Chloride 104 mmol/L (98-107); Estimated CRCL calculation 56 ml/min; Estimated Glomerular Filt Rate > 60; Glucose 83 mg/dL (65-110); Magnesium 2.1 mg/dL (1.6-2.3); Phosphorus 2.4 mg/dL (2.5-4.5); Potassium 3.2 mmol/L (3.4-5.0); Sodium 135 mmol/L (137-145)
[2023-03-13 05:47] LABS: INR 1.2; Prothrombin Time 15.8 Seconds (11.1-14.7)
[2023-03-13 05:53] LABS: Glucose Point of Care 79 mg/dl (65-105)
[2023-03-13 06:03] LABS: Base Excess ABG -0.3 mEq/l (+/-2.0); Carboxyhemoglobin 0.9 % THb (0-2.0); Fractional Inspired Oxygen 30 %; HCO3 ABG 23.3 mEq/l (22.0-26.0); Methemoglobin ABG 0.3 %THb (0-1.5); Oxygen Content ABG 10.7 %vol (16.0-22.0); Oxygen Saturation ABG 95.9 % (95.0-100.0); Oxyhemoglobin 92.8 % THb (90.0-100.0); PCO2 ABG 33.3 mmHg (35.0-45.0); PO2 ABG 74.8 mmHg (80.0-100.0); PO2 FiO2 Ratio Arterial Blood 2.49 %; Total Hemoglobin 8.1 g/dL (12.0-18.0); pH ABG 7.462 (7.350-7.450)
[2023-03-13 06:04] LABS: Arterial Blood Gas PEEP 5 cmH2O; Arterial Blood Gas Vent Mode CMV; Arterial Blood Gas Ventilator rate 16 /MIN; Device VENTILATOR; Site Drawn ARTLINE
[2023-03-13 06:05] LABS: Arterial Blood Gas Tidal Volume 330 ml
[2023-03-13 07:06] LABS: Hypochromasia 2+ (NORMAL); Platelet Estimate Decreased (Adequate); Schistocytes None Seen (NORMAL); Target Cells 1+ (NORMAL)
--- NOTE | 2023-03-13 07:51 | WPDANESPN ---
Anes - Prog Note Post-Op Date/Time: 03/13/23 07:51 Cardiovascular status: other (pt remains on aggressive vasopressors) Respiratory status: other (mechanical ventilation) Airway patency: other (Endotracheal intubation ) Mental status: other (reportedly responds to painful stimuli) Post-Op hydration status: normal and other Vital Signs: Last Vital Signs Temp 36.6 C 03/13/23 06:00 Pulse 94 03/13/23 06:22 Resp 16 03/13/23 06:22 BP 103/48 L 03/13/23 06:00 Pulse Ox 97 03/13/23 06:00 O2 Del Method Mechanical Ventilation 03/13/23 05:50 FiO2 30 03/13/23 05:50 Pain Score (VAS): Patient intubated and sedated. No nonverbal signs of pain present at this time. I/O: Intake & Output 03/12/23 03/12/23 03/13/23 15:59 23:59 07:59 Intake Total 575 1422 930 Output Total 90 270 975 Balance 485 1152 -45 Laboratory Tests 03/13/23 05:16 03/13/23 05:16 03/12/23 03/12/23 03/12/23 14:59 16:00 16:59 WBC 18.5 H RBC 3.20 L Hgb 8.3 L Hct 25.8 L MCV 80.6 MCH 25.9 L MCHC 32.2 RDW 15.4 H Plt Count 72 L MPV 11.9 H Immature Gran % (Auto) Neut % (Auto) Lymph % (Auto) Crawford % (Auto) Eos % (Auto) Baso % (Auto) Lymph # (Auto) Crawford # (Auto) Eos # (Auto) Baso # (Auto) Abs Immat Gran (auto) Absolute Neuts (auto) Absolute Nucleated RBC Nucleated RBC % Platelet Estimate % Immature Plt Fraction 19.0 H Hypochromasia Target Cells Schistocytes PT INR APTT Puncture Site ABG pH ABG pCO2 ABG pO2 ABG PO2/FiO2 Ratio ABG HCO3 ABG O2 Saturation ABG O2 Content ABG Base Excess A-a Gradient Oxyhemoglobin Carboxyhemoglobin Methemoglobin Reduced Hemoglobin Total Hemoglobin O2 Delivery Device O2 Liters/Min Minute Volume Vent Rate Vent Mode FiO2 Tidal Volume PEEP Peak Inspir Pressure Pressure Support Sodium 134 L Potassium 3.6 Chloride 103 Carbon Dioxide 24 Anion Gap 7 L BUN 21 H Creatinine 0.80 Estim Creat Clear Calc 50 Estimated GFR > 60 Glucose 93 POC Capillary Glucose 83 Lactic Acid Calcium 7.6 L Phosphorus Magnesium Total Bilirubin AST ALT Alkaline Phosphatase Ammonia Total Protein Albumin Vancomycin Trough 5.3 L 03/13/23 03/13/23 03/13/23 00:05 05:16 05:47 WBC 16.1 H RBC 2.91 L Hgb 7.6 L Hct 23.5 L MCV 80.8 MCH 26.1 MCHC 32.3 RDW 15.1 H Plt Count 71 L MPV 11.9 H Immature Gran % (Auto) 1.2 H Neut % (Auto) 89.9 H Lymph % (Auto) 2.3 L Crawford % (Auto) 6.2 Eos % (Auto) 0.0 Baso % (Auto) 0.4 Lymph # (Auto) 0.37 L Crawford # (Auto) 1.0 H Eos # (Auto) 0.0 Baso # (Auto) 0.1 Abs Immat Gran (auto) 0.20 H Absolute Neuts (auto) 14.4 H Absolute Nucleated RBC 0.0 Nucleated RBC % 0.0 Platelet Estimate Decreased % Immature Plt Fraction 17.1 H Hypochromasia 2+ Target Cells 1+ Schistocytes None seen PT 15.8 H INR 1.2 APTT 35.0 Puncture Site ABG pH ABG pCO2 ABG pO2 ABG PO2/FiO2 Ratio ABG HCO3 ABG O2 Saturation ABG O2 Content ABG Base Excess A-a Gradient Oxyhemoglobin Carboxyhemoglobin Methemoglobin Reduced Hemoglobin Total Hemoglobin O2 Delivery Device O2 Liters/Min Minute Volume Vent Rate Vent Mode FiO2 Tidal Volume PEEP Peak Inspir Pressure Pressure Support Sodium 135 L Potassium 3.2 L Chloride 104 Carbon Dioxide 23 Anion Gap 8 BUN 21 H Creatinine 0.70 Estim Creat Clear Calc 56 Estimated GFR > 60 Glucose 83 POC Capillary Glucose 90 79 Lactic Acid 0.9 Calcium 7.8 L Phosphorus 2.4 L Magnesium 2.1 Total Bilirubin 1.9 H AST 176 H ALT 59 H Alkaline Phosphatase 57 Ammonia < 9 L Total Protein 5.0 L
[2023-03-13] MEDS: PANTOPRAZOLE SODIUM IV 40 MG VIAL IV PUSH (07:59)
[2023-03-13] MEDS: MINERAL OIL/WHITE PETROLATUM OINTMENT 1 APPLIC EACH EYE ×2 (08:06→20:56)
[2023-03-13] MEDS: KCL 40 MEQ/WATER 100 ML 100 ML 25 ML IVPB (08:24)
[2023-03-13] MEDS: BUDESONIDE RESPULE NEB 0.5 MG/2 ML AMP INHALATION ×2 (10:06→20:17)
--- NOTE | 2023-03-13 11:26 | PCFNICU ---
ICU Rounding Note: Pt current nutrition is NPO. Nutrition recommendation: Start TPN when medically appropriate: recommend Clinmix 07/30E @ goal 50 ml/h. Start at 30 ml/h: 1011 kcal, 36 g protein, 970 ml total volume Last recorded weight is 59.7 kg. Bowel Motility: +1 BM per ileostomy yesterday Labs Reviewed: Alb 2.7, Na 135, K+ 3.2, BUN 21 Meds Noted: Pressors off. Fentanyl, versed, LR, zosyn, vanco Skin: No pressure related breakdown Additional Notes: Pt had completed total sigmoid colectomy with end ileostomy yesterday s/t necrotic colon. Pt at risk for short bowel syndrome and possible need for intermediate manager TPN. Monitoring plan of care, tube feeding orders, weights, labs Following daily in ICU rounds, reassess every Saturday and Saturday per policy.
[2023-03-13] MEDS: VANCOMYCIN 1,000 MG/NS 250 ML 1,000 MG/250 ML BAG 250 MG IVPB (11:30)
[2023-03-13 13:03] LABS: Glucose Point of Care 92 mg/dl (65-105)
--- NOTE | 2023-03-13 13:45 | WPDINTPN ---
Progress Note: A&P Assessment and Plan (1) Acute respiratory failure: Code(s): J96.00 - Acute respiratory failure, unspecified whether with hypoxia or hypercapnia Status: Acute Assessment and Plan: Acute respiratory failure likely related to sepsis, septic shock -03/09: patient intubated at the outside hospital ER -remains on CMV mode of ventilation, peep of 5, 55% FiO2, -ABGs reviewed, ventilator adjusted, wean FiO2 to maintain O2 sats greater than 92% -low tidal volume strategy to avoid volu-trauma -sedated with fentanyl and Versed as she was getting anxious and agitated, as the bedside RN to give her a sedation vacation - Continue mechanical ventilation. Chest x-ray this morning: Stable diffuse lung disease, right worse than left, consistent with pneumonia (2) Septic shock: Code(s): A41.9 - Sepsis, unspecified organism; R65.21 - Severe sepsis with septic shock Status: Acute Assessment and Plan: Patient presented with hypotension, shortness of breath, acute kidney injury, found to have Acute surgical abdomen secondary to perforated bowel s/p Exploratory laparotomy with total colectomy for Necrotic colon with perforation, OFF ALL PRESSORS -maintain MAP > 65 mmHg are SBP > 100 mmHg at all times for adequate end organ perfusion -03/10: left femoral arterial line was placed -currently on maintenance fluids LR follow-up insensible fluid loss, as she had a lot of drainage from abdominal incision and NG tube - -improved urine output with normalization of her creatinine AND LACTIC ACIDOSIS -continue Zosyn and vancomycin (03/09) -start WEANING stress dose steroids -03/09 blood cultures preliminary blood cultures negative x2 -03/10 sputum cultures budding yeast with pseudohyphae (3) ITALO (acute kidney injury): Code(s): N17.9 - Acute kidney failure, unspecified Status: Acute Assessment and Plan: Patient presented with acute kidney injury with a creatinine of 1.42 (baseline creatinine of 0.78 on 02/12/2023) -patient has been adequately fluid-resuscitated at the outside hospital ER, [facility] ICU and the OR -continue maintenance IV fluids and albumin -good urine output, creatinine has normalized, lactic acid has normalized -will continue to monitor urine output, renal function electrolytes (4) AMS (altered mental status): Qualifiers: Altered mental status type: unspecified Qualified Code(s): R41.82 - Altered mental status, unspecified Code(s): R41.82 - Altered mental status, unspecified Status: Acute Assessment and Plan: Patient presented with altered mental status which most likely related to septic shock, bowel perforation, acute respiratory failure -will manage underlying causes Currently sedated with fentanyl and Versed (5) Bowel perforation: Code(s): K63.1 - Perforation of intestine (nontraumatic) Status: Acute Assessment and Plan: 03/09: Initial CT scan of the abdomen/pelvis at the outside hospital ER did not show any perforation or free air does dilated and thickened colon suggestive of enterocolitis 03/09: Repeat CT scan abdomen pelvis at [facility] ICU was performed because of abdominal distension and rigid abdomen which showed interval development of free air in the abdomen with likely perforation somewhere near the cecum. Patient underwent ex lap with total colectomy: According to the operative notes the whole colon from the terminal ileum all the way down to the mid sigmoid colon was totally necrotic. Patient had total colectomy. On the OR table patient was very unstable with significantly low blood pressure, and tachycardia, the fascia was left approximated abdominal was closed with vineet in the skin and was transferred to the ICU Discussed with surgeon, patient will be taken to the OR for closure of her abdomen today, 03/12/2023. Patient was given 1 unit of FFP and vitamin K on 03/11. INR this morning is 1.5
[2023-03-13] MEDS: LACTATED RINGERS 1,000 ML 75 ML IV CONT (13:52)
--- NOTE | 2023-03-13 16:10 | PM.PNGS ---
Progress Note: A&P Assessment and Plan (1) Septic shock: Code(s): A41.9 - Sepsis, unspecified organism; R65.21 - Severe sepsis with septic shock Status: Acute Assessment and Plan: Sepsis is improving with WBC count trending down to 16,100 today. Lactic acid normalized. Now off vasopressors. Continue broad-spectrum IV antibiotics. (2) Bowel perforation: Code(s): K63.1 - Perforation of intestine (nontraumatic) Status: Acute Assessment and Plan: Status post total colectomy for necrotic colon with perforation and eventually taken back yesterday for completion sigmoid colectomy, segmental small bowel resection for ischemic ileum, placement of end ileostomy, and abdominal wall closure. Continue IV antibiotics. Discussed starting TPN with Radioisotope Technologist until ileostomy is functioning well. (3) Acute respiratory failure: Code(s): J96.00 - Acute respiratory failure, unspecified whether with hypoxia or hypercapnia Status: Acute Assessment and Plan: Vent management per Radioisotope Technologist. Plan I have discussed the patient's case and plan of care with Dr. Mathur. Subjective Subjective Date/Time Seen: 03/13/23 16:10 Interval history: This is a 62-year-old female who underwent an emergent exploratory laparotomy for an acute surgical abdomen on 03/09/23.? Findings showed a totally necrotic:? Extending all the way from the ileocecal valve all the way to the mid sigmoid colon.? There was only some small perforation.? Due to hemodynamic instability during the surgery after the subtotal colectomy there was decision made not to proceed with placed the end ileostomy as she was too unstable.? The fascia was left open and the skin was closed over the bowel which is skin vineet the patient was taken emergently back to the intensive care unit for critical care management.? She was taken back to the OR on 03/12/23 (yesterday) for second look exploratory laparotomy, completion sigmoid colectomy, segmental small bowel resection, placement of end ileostomy, and abdominal wall closure by Dr. Kim. Chart reviewed. She is seen in the ICU today with her nurse. She is now off all vasopressors. She is not waking up, therefore sedation has been turned off. She is obtunded and unarousable for me. She has only a scant amount of mostly serous liquid from her ileostomy today. NG had 400 cc out overnight. Good urine output. NEW drain with 80cc out last night and 70cc out today. No acute events overnight. Review of Systems Review of Systems: ROS unobtainable: Yes unobtainable due to endotracheal tube Exam Const: General: ill appearing Orientation/consciousness: patient obtunded and Other orientation findings (not arousable to name or stimulation) Cardio: Rate: tachycardic Rhythm: regular rhythm GI: Inspection: distended, incision (midline dressing dry and intact) and other (NEW drain with serosanguineous drainage) GI Palp: Yes Soft to palpation, No Guarding due to palpation present (GI) and No Hernia present Auscultation: Hypoactive bowel sounds present Other: Midline incision is approximated with vineet intact, no erythema, only serous drainage, there is a small portion of the skin around the umbilicus and at the bottom of the incision which seems to be ischemic. Ileostomy with only scant serous drainage, stoma is dark pink and slightly dusky. Objective Data Vital Signs Vital Signs: Vital Signs - 24 hr 03/12/23 17:14 03/12/23 17:15 03/12/23 18:00 Temperature Pulse Rate 90 90 85 Respiratory Rate 16 16 Blood Pressure Pulse Oximetry Oxygen Delivery Fraction of Inspired Oxygen 03/12/23 18:00 03/12/23 18:05 03/12/23 19:41 Temperature 98.0 F 98.1 F Pulse Rate 85 86 86 Respiratory Rate 16 17 Blood Pressure 117/58 L 108/53 L Pulse Oximetry 100 100 Oxygen Delivery Mechanical Ventilation Fraction of Inspired Oxygen 35 03/12/23 20:00 03/12/23 20:00 03/12/23 19:00 Temperature
[2023-03-13 18:45] LABS: Glucose Point of Care 90 mg/dl (65-105)
[2023-03-13] MEDS: dexmedeTOMIDine 400 MCG/100 ML 400 MCG/100 ML BAG IV CONT (22:26)
[2023-03-13] MEDS: ALTEPLASE 2 MG VIAL (CATHFLO) 6 MG IV PUSH (22:57)
[2023-03-14] VITALS (50 sets, daily range): BP systolic 135–178; BP diastolic 69–100; PULSE 75–120; RESP 16–26; TEMP 37.6–38.7; O2SAT 94–100
[2023-03-14 00:21] LABS: Glucose Point of Care 97 mg/dl (65-105)
[2023-03-14] MEDS: LEVALBUTEROL NEB 1.25 MG/3 ML 0.63 MG INHALATION ×4 (02:21→22:05)
[2023-03-14] MEDS: IPRATROPIUM BR 0.02% INH SOLN 0.5 MG/2.5 ML VIAL INHALATION ×4 (02:21→22:05)
[2023-03-14] MEDS: LACTATED RINGERS 1,000 ML 75 ML IV CONT (03:42)
[2023-03-14 04:45] LABS: Alveolar/Arterial O2 Gradient 99.7 mmHg; Base Excess ABG -0.7 mEq/l (+/-2.0); Fractional Inspired Oxygen 30 %; HCO3 ABG 21.9 mEq/l (22.0-26.0); Methemoglobin ABG 0.3 %THb (0-1.5); Oxygen Content ABG 10.4 %vol (16.0-22.0); Oxygen Saturation ABG 97.1 % (95.0-100.0); Oxyhemoglobin 94.7 % THb (90.0-100.0); PCO2 ABG 27.9 mmHg (35.0-45.0); PO2 ABG 81.4 mmHg (80.0-100.0); PO2 FiO2 Ratio Arterial Blood 2.71 %
[2023-03-14 04:46] LABS: pH ABG 7.513 (7.350-7.450)
[2023-03-14 04:47] LABS: Device VENTILATOR; Site Drawn ARTLINE; Total Hemoglobin 7.7 g/dL (12.0-18.0)
[2023-03-14 04:48] LABS: Arterial Blood Gas PEEP 5 cmH2O; Arterial Blood Gas Vent Mode CMV
[2023-03-14 04:49] LABS: Arterial Blood Gas Tidal Volume 330 ml; Arterial Blood Gas Ventilator rate 14 /MIN
[2023-03-14 04:50] LABS: Hematocrit 22.2 % (37.0-47.0); Hemoglobin 7.2 g/dL (12.0-15.0); Immature Platelet Fraction Pct 17.2 % (0.9-11.2); Mean Corpuscular HGB Conc 32.4 g/dl (32-36); Mean Corpuscular Hemoglobin 26.2 pg (26-34); Mean Corpuscular Volume 80.7 fl (80-100); Mean Platelet Volume 13.4 fl (7.4-10.4); Platelet Count Result 95 k/mm3 (150-375); Red Blood Count 2.75 M/mm3 (4.2-5.4); Red Cell Distribution Width 15.6 % (11.5-14.5); White Blood Count 10.9 K/mm3 (4.5-10.0)
[2023-03-14 04:54] LABS: Ammonia < 9 umol/L (9-30)
[2023-03-14 05:02] LABS: Lactic Acid Reflex 1.2 mmol/L (0.7-2.0)
[2023-03-14 05:04] LABS: Alanine Aminotransferase 83 U/L (6-35); Albumin Level 2.8 g/dL (3.5-5.1); Alkaline Phosphatase 52 U/L (38-126); Anion Gap 6 mmol/L (8-16); Aspartate Amino Transferase 300 U/L (14-36); Bilirubin,Total 1.8 mg/dL (0.2-1.3); Blood Urea Nitrogen 25 mg/dL (7-17); Carbon Dioxide 26 mmol/L (22-30); Chloride 106 mmol/L (98-107); Estimated CRCL calculation 56 ml/min; Estimated Glomerular Filt Rate > 60; Glucose 102 mg/dL (65-110); Magnesium 2.1 mg/dL (1.6-2.3); Potassium 3.7 mmol/L (3.4-5.0); Sodium 138 mmol/L (137-145)
[2023-03-14 05:17] LABS: Vancomycin Trough 9.5 ug/mL (10.0-20.0)
[2023-03-14 05:23] LABS: Band Neutrophils Percent 9 % (0-6); Lymphocytes Absolute Manual 0.65 K/mm3 (1.1-4.5); Monocytes Absolute Manual 0.32 K/mm3 (0.1-0.90); Monocytes Percent Manual 3 % (3-9); Neutrophils Absolute Manual 9.91 K/mm3 (1.7-7.2); Neutrophils Percent Manual 82 % (46-73); Total Cells Counted 100
[2023-03-14 05:24] LABS: Anisocytosis 1+ (NORMAL); Hypochromasia 2+ (NORMAL); Large Platelets Present; Platelet Estimate Decreased (Adequate); Schistocytes Rare (NORMAL)
[2023-03-14] MEDS: CENTRAL LINE FLUSH 10 ML IV PUSH ×3 (05:36→20:29)
[2023-03-14] MEDS: PIPERACILLN/TAZ 3.375GM/NS50ML 3.375 GM/50 ML BAG IVPB ×3 (05:36→16:43)
[2023-03-14] MEDS: HYDROCORTISONE SODIUM SUCCINATE 100 MG/2 ML VIAL IV PUSH ×2 (05:36→16:44)
[2023-03-14] MEDS: BUDESONIDE RESPULE NEB 0.5 MG/2 ML AMP INHALATION ×2 (07:31→22:06)
[2023-03-14] MEDS: VANCOMYCIN 1,500 MG/NS 500 ML 1,500 MG/500 ML BAG 250 MG IVPB (07:38)
[2023-03-14 08:03] LABS: Glucose Point of Care 250 mg/dl (65-105)
[2023-03-14] MEDS: PANTOPRAZOLE SODIUM IV 40 MG VIAL IV PUSH (08:06)
[2023-03-14] MEDS: MINERAL OIL/WHITE PETROLATUM OINTMENT 1 APPLIC EACH EYE ×2 (08:09→20:28)
[2023-03-14] MEDS: FUROSEMIDE INJ 40 MG/4 ML VIAL IV PUSH (08:11)
[2023-03-14] MEDS: HYDROmorphone HCL INJ (*CRX) 1 MG/ML SYR IV PUSH ×3 (08:37→22:15)
--- NOTE | 2023-03-14 09:36 | WPDINTPN ---
Progress Note: A&P Assessment and Plan (1) Acute respiratory failure: Code(s): J96.00 - Acute respiratory failure, unspecified whether with hypoxia or hypercapnia Status: Acute Assessment and Plan: Acute respiratory failure likely related to sepsis, septic shock -03/09: patient intubated at the outside hospital ER -remains on CMV mode of ventilation, peep of 5, 55% FiO2, -ABGs reviewed, ventilator adjusted, wean FiO2 to maintain O2 sats greater than 92% -low tidal volume strategy to avoid volu-trauma -on Precedex infusion, patient does open her eyes and follows simple commands - Continue mechanical ventilation. Chest x-ray this morning: Stable airspace opacities in right lung and left lower lung zone, consistent with pneumonia versus asymmetric pulmonary edema. Patient will be given Lasix this morning, will place on spontaneous breathing trial after that and evaluate if she is ready to extubate (2) Septic shock: Code(s): A41.9 - Sepsis, unspecified organism; R65.21 - Severe sepsis with septic shock Status: Acute Assessment and Plan: Patient presented with hypotension, shortness of breath, acute kidney injury, found to have Acute surgical abdomen secondary to perforated bowel s/p Exploratory laparotomy with total colectomy for Necrotic colon with perforation, OFF ALL PRESSORS -maintain MAP > 65 mmHg are SBP > 100 mmHg at all times for adequate end organ perfusion -03/10: left femoral arterial line was placed -currently on maintenance fluids LR follow-up insensible fluid loss, as she had a lot of drainage from abdominal incision and NG tube - -improved urine output with normalization of her creatinine AND LACTIC ACIDOSIS -continue Zosyn and vancomycin (03/09) - WEANING stress dose steroids -03/09 blood cultures preliminary blood cultures negative x2 -03/10 sputum cultures budding yeast with pseudohyphae (3) ITALO (acute kidney injury): Code(s): N17.9 - Acute kidney failure, unspecified Status: Acute Assessment and Plan: Patient presented with acute kidney injury with a creatinine of 1.42 (baseline creatinine of 0.78 on 02/12/2023) -patient has been adequately fluid-resuscitated at the outside [facility] ER, [facility] ICU and the OR -discontinue IV fluids -good urine output, creatinine has normalized, lactic acid has normalized -will continue to monitor urine output, renal function electrolytes (4) AMS (altered mental status): Qualifiers: Altered mental status type: unspecified Qualified Code(s): R41.82 - Altered mental status, unspecified Code(s): R41.82 - Altered mental status, unspecified Status: Acute Assessment and Plan: Patient presented with altered mental status which most likely related to septic shock, bowel perforation, acute respiratory failure -will manage underlying causes Currently on Precedex infusion, opens eyes nods to questions and follows simple commands (5) Bowel perforation: Code(s): K63.1 - Perforation of intestine (nontraumatic) Status: Acute Assessment and Plan: 03/09: Initial CT scan of the abdomen/pelvis at the outside hospital ER did not show any perforation or free air does dilated and thickened colon suggestive of enterocolitis 03/09: Repeat CT scan abdomen pelvis at [facility] ICU was performed because of abdominal distension and rigid abdomen which showed interval development of free air in the abdomen with likely perforation somewhere near the cecum. Patient underwent ex lap with total colectomy: According to the operative notes the whole colon from the terminal ileum all the way down to the mid sigmoid colon was totally necrotic. Patient had total colectomy. On the OR table patient was very unstable with significantly low blood pressure, and tachycardia, the fascia was left approximated abdominal was closed with vineet in the skin and was transferred to the ICU Discussed with surgeon, amanda
[2023-03-14] MEDS: hydrALAZINE HCL 20 MG/ML VIAL 10 MG IV PUSH ×3 (09:58→21:05)
[2023-03-14] MEDS: dexmedeTOMIDine 400 MCG/100 ML 400 MCG/100 ML BAG 13.43 MCG IV CONT (10:57)
--- NOTE | 2023-03-14 11:10 | PCFNICU ---
ICU Rounding Note: Pt current nutrition is NPO. Nutrition recommendation: Initiate TPN Clinmix 07/30/E @ 30 ml/h: 1011 kcal, 36 g protein, 803 ml total volume. This meets ~77% EER. Eventual goal for TPN 50ml/h to meet ~100% EER: 1352 kcal, 60 g protein, 1450 ml total volume Last recorded weight is 58 kg. Bowel Motility: Not much output from ileostomy Labs Reviewed: Hgb 7.2, Hct 22.2, Alb 2.8, BUN 25 Meds Noted: No pressors. Sedation with precedex. Zosyn,vanco Skin: Incision Additional Notes: S/p total colectomy with end ileostomy. Because of very small amount of bowel remaining, pt is high risk for short bowel syndrome and possible long-term TPN. Trickle feeding trial possibly after ileostomy output improves. Following daily in ICU rounds. Monitoring plan of care, tube feeding orders, weights, labs Following daily in ICU rounds, reassess every Saturday and Saturday per policy.
[2023-03-14 12:08] LABS: Glucose Point of Care 130 mg/dl (65-105)
--- NOTE | 2023-03-14 12:44 | PM.PNGS ---
Progress Note: A&P Assessment and Plan (1) Septic shock: Code(s): A41.9 - Sepsis, unspecified organism; R65.21 - Severe sepsis with septic shock Status: Acute Assessment and Plan: Overall improving. WBC continues to trend down. Lactic acid normalized. Still off vasopressors. Continue broad-spectrum IV antibiotics. Blood cx NGTD x 2. (2) Bowel perforation: Code(s): K63.1 - Perforation of intestine (nontraumatic) Status: Acute Assessment and Plan: Status post total colectomy for necrotic colon with perforation and eventually taken back three days later for completion sigmoid colectomy, segmental small bowel resection for ischemic ileum, placement of end ileostomy, and abdominal wall closure. Continue IV antibiotics. Ileostomy starting to function. Will start trickle tube feedings. Continues dressing changes for incision and monitor ischemic skin near umbilicus. (3) Acute respiratory failure: Code(s): J96.00 - Acute respiratory failure, unspecified whether with hypoxia or hypercapnia Status: Acute Assessment and Plan: Vent management per R&D Lab Technician. Plan I have discussed the patient's case and plan of care with Dr. Mathur. Subjective Subjective Date/Time Seen: 03/14/23 12:44 Patient reports: fever Interval history: 03/09/23 - Exploratory laparotomy with total colectomy by Dr. Kim due to findings of a totally necrotic colon 03/12/23 - second look exploratory laparotomy, completion sigmoid colectomy, segmental small bowel resection, placement of end ileostomy, and abdominal wall closure by Dr. Kim She is seen in the ICU with her nurse and she is intubated. Sedation was stopped yesterday and she started waking up. This morning she was following commands. Per nursing, she was very agitated and restless off the sedation, therefore she was started on a precedex infusion. She is currently sedated. She is not on any vasopressors. She is receiving 1 unit of PRBCs. Hgb 7.2 this morning and has slowly been trending down over the past few days. Her temp is currently 100F. She has slightly more output coming from her ileostomy, but still minimal. Review of Systems Review of Systems: ROS unobtainable: Yes unobtainable due to endotracheal tube Exam Const: General: ill appearing Orientation/consciousness: patient obtunded Resp: Effort & Inspection: other (intubated) Cardio: Rate: tachycardic GI: Inspection: non-distended and other (NEW drain with serosanguineous drainage) GI Palp: Yes Soft to palpation, No Guarding due to palpation present (GI) and Yes Other GI palpation findings present (exam limited due to sedation/intubation) Auscultation: Hypoactive bowel sounds present Other: Midline incision is approximated with vineet intact, no erythema, there is a small portion of the skin around the umbilicus and at the bottom of the incision which seems to be ischemic. There is scant amount of yellow cloudy drainage coming from the ischemic area around the umbilicus. Ileostomy with small amount of liquid enteric contents, stoma is dark pink but viable. Urinary Catheter: Urinary Catheter: patent and draining Objective Data Vital Signs Vital Signs: Vital Signs - 24 hr 03/13/23 13:53 03/13/23 13:54 03/13/23 14:00 Temperature Pulse Rate 108 H 111 H 113 H Respiratory Rate 16 16 Blood Pressure Pulse Oximetry Oxygen Delivery Fraction of Inspired Oxygen 03/13/23 14:00 03/13/23 14:18 03/13/23 14:42 Temperature 98.9 F Pulse Rate 110 H 105 H 106 H Respiratory Rate 16 16 20 Blood Pressure 106/55 L Pulse Oximetry 97 Oxygen Delivery Fraction of Inspired Oxygen 03/13/23 14:48 03/13/23 14:50 03/13/23 16:00 Temperature Pulse Rate 106 H 105 H 105 H Respiratory Rate 18 Blood Pressure Pulse Oximetry 98 Oxygen Delivery Mechanical Ventilation Fraction of Inspired Oxygen 30 03/13/23 16:00 03/13/23 16:00 03/13/23 16:00 Temperatu
[2023-03-14] MEDS: ACETAMINOPHEN ELIXIR 325 MG/10.15 ML UDC 650 MG FEED TUBE (15:26)
[2023-03-14] MEDS: dexmedeTOMIDine 400 MCG/100 ML 400 MCG/100 ML BAG 19.4 MCG IV CONT (17:59)
[2023-03-14] MEDS: SODIUM CHLORIDE 0.9% IV 250 ML 30 ML IV CONT (18:02)
[2023-03-15] VITALS (35 sets, daily range): BP systolic 127–162; BP diastolic 67–95; PULSE 72–107; RESP 16–24; TEMP 35.9–37.6; O2SAT 95–99
--- NOTE | 2023-03-15 | ECHO_ITS ---
Patient Info Name: Jeanne Fragoso Age: 62 years : 1960 Gender: Female Ht: 62 in Wt: 126 lbs BSA: 1.59 m2 HR: 87 bpm BP: 143 / 76 mmHg Heart Rhythm: Sinus Rhythm, Tachycardia Technical Quality: Fair Exam Date: 03/15/2023 8:32 AM Exam Location: Echo Lab Patient Status: Inpatient Admit Date: 03/09/2023 Staff Ordering Physician: Ale Carrizales MD Manager Car: Jo Stock RDCS Attending Provider: Harris Lerner MD Referring Physician: Sofie MERLOS; Exam Type: CA echo doppler color flow Study Info Indications - Septic shock Complete two-dimensional, color flow and Doppler transthoracic echocardiogram is performed. Summary 1. Technically difficult study with limited views. 2. Left ventricular chamber dimension is normal. 3. Left ventricular systolic function is moderately reduced, estimated at 35-40%. 4. The left ventricular diastolic function is grade I diastolic dysfunction. 5. Right ventricular systolic function is normal. 6. There is mild mitral valve regurgitation. 7. There is mild tricuspid valve regurgitation. 8. Left pleural effusion noted. Left Ventricle Left ventricular chamber dimension is normal. Left ventricular systolic function is moderately reduced, estimated at 35-40%. There is no increased left ventricular wall thickness. The left ventricular diastolic function is grade I diastolic dysfunction. Right Ventricle Right ventricular chamber dimension is normal. Right ventricular systolic function is normal. Left Atria Left atrial chamber dimension is normal. Right Atria Right atrial chamber dimension is normal. Atrial Septum Intact interatrial septum visualized by color flow imaging. Aortic Valve The aortic valve is not well visualized. There is no aortic valve regurgitation. There is mild aortic valve calcification. Pulmonic Valve The pulmonic valve is not well visualized. Mitral Valve There is mild mitral valve regurgitation. Tricuspid Valve There is mild tricuspid valve regurgitation. Pericardium/Pleural Left pleural effusion noted. There is no pericardial effusion. Inferior Vena Cava Inferior vena cava is not well visualized. Aorta The aortic root size at the sinus of Valsalva is normal. Left Ventricular Outflow Tract Name Value Normal LVOT 2D LVOT Diameter 1.8 cm LVOT Doppler LVOT Peak Gradient 2 mmHg LVOT Mean Gradient 1 mmHg LVOT VTI 11 cm LVOT VTI/AV VTI Ratio 0.6 LVOT Stroke Volume 30 ml LVOT CO 3.6 l/min LVOT CI 2.3 l/min/m2 Pulmonic Valve Name Value Normal RVOT Doppler RVOT Peak Gradient 1 mmHg PV Doppler PV Peak Gradient 2 mmHg
[2023-03-15] MEDS: PIPERACILLN/TAZ 3.375GM/NS50ML 3.375 GM/50 ML BAG IVPB ×5 (00:02→23:34)
[2023-03-15] MEDS: dexmedeTOMIDine 400 MCG/100 ML 400 MCG/100 ML BAG 20.9 MCG IV CONT ×5 (00:03→19:12)
[2023-03-15 00:20] LABS: Glucose Point of Care 171 mg/dl (65-105)
[2023-03-15] MEDS: VANCOMYCIN 1,500 MG/NS 500 ML 1,500 MG/500 ML BAG 250 MG IVPB ×2 (01:05→20:09)
[2023-03-15] MEDS: hydrALAZINE HCL 20 MG/ML VIAL 10 MG IV PUSH ×2 (01:05→05:11)
[2023-03-15] MEDS: IPRATROPIUM BR 0.02% INH SOLN 0.5 MG/2.5 ML VIAL INHALATION ×4 (02:02→20:35)
[2023-03-15] MEDS: LEVALBUTEROL NEB 1.25 MG/3 ML 0.63 MG INHALATION ×4 (02:02→20:35)
[2023-03-15 04:40] LABS: Alveolar/Arterial O2 Gradient 117.8 mmHg; Base Excess ABG -1.8 mEq/l (+/-2.0); Fractional Inspired Oxygen 30 %; HCO3 ABG 19.6 mEq/l (22.0-26.0); Oxygen Content ABG 14.5 %vol (16.0-22.0); Oxygen Saturation ABG 95.6 % (95.0-100.0); Oxyhemoglobin 92.7 % THb (90.0-100.0); PCO2 ABG 24.2 mmHg (35.0-45.0); PO2 ABG 67.7 mmHg (80.0-100.0); PO2 FiO2 Ratio Arterial Blood 2.26 %; Total Hemoglobin 11.1 g/dL (12.0-18.0)
[2023-03-15 04:41] LABS: Arterial Blood Gas PEEP 5 cmH2O; Arterial Blood Gas Tidal Volume 330 ml; Arterial Blood Gas Vent Mode CMV; Arterial Blood Gas Ventilator rate 14 /MIN; Device VENTILATOR; Site Drawn RIGHT BRACHIAL; pH ABG 7.527 (7.350-7.450)
[2023-03-15] MEDS: HYDROmorphone HCL INJ (*CRX) 1 MG/ML SYR IV PUSH (05:11)
[2023-03-15] MEDS: HYDROCORTISONE SODIUM SUCCINATE 100 MG/2 ML VIAL IV PUSH (05:11)
[2023-03-15] MEDS: CENTRAL LINE FLUSH 10 ML IV PUSH ×3 (05:11→20:11)
[2023-03-15 05:34] LABS: Hematocrit 30.9 % (37.0-47.0); Hemoglobin 10.3 g/dL (12.0-15.0); Mean Corpuscular HGB Conc 33.3 g/dl (32-36); Mean Corpuscular Hemoglobin 26.8 pg (26-34); Mean Corpuscular Volume 80.3 fl (80-100); Mean Platelet Volume 12.6 fl (7.4-10.4); Platelet Count Result 145 k/mm3 (150-375); Red Blood Count 3.85 M/mm3 (4.2-5.4); Red Cell Distribution Width 15.9 % (11.5-14.5); White Blood Count 13.1 K/mm3 (4.5-10.0)
[2023-03-15 05:50] LABS: Alanine Aminotransferase 108 U/L (6-35); Albumin Level 3.1 g/dL (3.5-5.1); Alkaline Phosphatase 62 U/L (38-126); Anion Gap 9 mmol/L (8-16); Aspartate Amino Transferase 372 U/L (14-36); Bilirubin,Total 2.3 mg/dL (0.2-1.3); Blood Urea Nitrogen 25 mg/dL (7-17); Calcium 7.7 mg/dL (8.4-10.2); Carbon Dioxide 26 mmol/L (22-30); Chloride 101 mmol/L (98-107); Estimated CRCL calculation 56 ml/min; Estimated Glomerular Filt Rate > 60; Glucose 193 mg/dL (65-110); Magnesium 1.7 mg/dL (1.6-2.3); Phosphorus 2.6 mg/dL (2.5-4.5); Potassium 2.1 mmol/L (3.4-5.0); Sodium 136 mmol/L (137-145)
[2023-03-15] MEDS: POTASSIUM CHLORIDE 20 MEQ PACKET (FOR LIQUID) 40 MEQ PO (06:19)
[2023-03-15] MEDS: MAGNESIUM SULF 2 GM/WATER 50ML 2 GM/50 ML BAG IVPB (06:19)
[2023-03-15] MEDS: KCL 40 MEQ/WATER 100 ML 100 ML 25 ML IVPB ×3 (06:20→18:16)
--- NOTE | 2023-03-15 07:44 | PM.PNGS ---
Progress Note: A&P Assessment and Plan (1) Bowel perforation: Code(s): K63.1 - Perforation of intestine (nontraumatic) Status: Acute Assessment and Plan: cont to do trophic feeds for now, cont abx, wean vent per ICU team Subjective Subjective Date/Time Seen: 03/15/23 07:44 Interval history: no acute issues, fidel trophic feeds Review of Systems Review of Systems: ROS unobtainable: Yes unobtainable due to endotracheal tube Exam Const: General: ill appearing Other: intubated, sedated Resp: Auscultation: diminished lung sounds Cardio: Rate: regular rate Rhythm: regular rhythm GI: Inspection: distended and incision Other: ileostomy c scant output Objective Data Vital Signs Vital Signs: Vital Signs - 24 hr 03/14/23 08:00 03/14/23 08:00 03/14/23 08:00 Temperature 38.1 C H Pulse Rate 120 H 120 H 120 H Respiratory Rate 18 18 Blood Pressure 135/87 Pulse Oximetry 98 98 Oxygen Delivery Mechanical Ventilation Fraction of Inspired Oxygen 30 03/14/23 08:00 03/14/23 09:46 03/14/23 09:52 Temperature 37.9 C H 37.9 C H Pulse Rate 95 95 Respiratory Rate 16 16 Blood Pressure 178/89 H 178/89 H Pulse Oximetry 100 100 Oxygen Delivery Fraction of Inspired Oxygen 30 03/14/23 09:52 03/14/23 10:00 03/14/23 10:06 Temperature 37.9 C H 37.9 C H 37.9 C H Pulse Rate 93 95 100 Respiratory Rate 16 18 16 Blood Pressure 174/84 H 167/78 H 164/76 H Pulse Oximetry 97 98 97 Oxygen Delivery Fraction of Inspired Oxygen 03/14/23 10:15 03/14/23 10:49 03/14/23 10:57 Temperature Pulse Rate 92 93 94 Respiratory Rate 20 21 H Blood Pressure Pulse Oximetry 97 Oxygen Delivery Mechanical Ventilation Fraction of Inspired Oxygen 30 03/14/23 10:59 03/14/23 10:00 03/14/23 11:06 Temperature 37.7 C H 37.7 C H Pulse Rate 87 87 95 Respiratory Rate 18 22 H Blood Pressure 150/86 H 150/86 H Pulse Oximetry 96 94 Oxygen Delivery Fraction of Inspired Oxygen 03/14/23 11:24 03/14/23 12:06 03/14/23 12:00 Temperature 37.8 C H Pulse Rate 86 120 H 88 Respiratory Rate 19 22 H Blood Pressure 153/99 H Pulse Oximetry 97 Oxygen Delivery Fraction of Inspired Oxygen 03/14/23 12:00 03/14/23 12:00 03/14/23 12:00 Temperature 37.8 C H Pulse Rate 94 Respiratory Rate 22 H 18 Blood Pressure 153/99 H Pulse Oximetry 97 97 Oxygen Delivery Mechanical Ventilation Fraction of Inspired Oxygen 30 30 03/14/23 13:06 03/14/23 13:41 03/14/23 13:15 Temperature 38.0 C H Pulse Rate 88 88 86 Respiratory Rate 22 H 22 H Blood Pressure 157/91 H Pulse Oximetry 98 97 Oxygen Delivery Mechanical Ventilation Fraction of Inspired Oxygen 30 03/14/23 13:15 03/14/23 13:25 03/14/23 14:09 Temperature 38.0 C H Pulse Rate 86 95 88 Respiratory Rate 21 H 23 H 22 H Blood Pressure 157/91 H Pulse Oximetry 98 Oxygen Delivery Fraction of Inspired Oxygen 03/14/23 14:00 03/14/23 14:00 03/14/23 15:03 Temperature 38.3 C H Pulse Rate 88 99 105 H Respiratory Rate 18 18 Blood Pressure 161/96 H Pulse Oximetry 97 Oxygen Delivery Fraction of Inspired Oxygen 03/14/23 15:26 03/14/23 14:30 03/14/23 15:30 Temperature 38.3 C H Pulse Rate Respiratory Rate Blood Pressure 165/99 H 153/96 H Pulse Oximetry Oxygen Delivery Fraction of Inspired Oxygen 03/14/23 16:04 03/14/23 16:00 03/14/23 16:00 Temperature Pulse Rate 99 99 Respiratory Rate 18 Blood Pressure Pulse Oximetry 95 95 Oxygen Delivery Mechanical Ventilation Mechanical Ventilation Fraction of Inspired Oxygen 30 30 03/14/23 16:00 03/14/23 16:00 03/14/23 17:09 Temperature 38.3 C H Pulse Rate 100 99 Respiratory Rate 22 H 22 H Blood Pressure 153/89 H Pulse Oximetry 96 Oxygen Delivery Fraction of Inspired Oxygen 30 03/14/23 17:59 03/14/23 16:26 03/14/23 18:00 Temperature 38.2 C H Pulse Rate
[2023-03-15] MEDS: MINERAL OIL/WHITE PETROLATUM OINTMENT 1 APPLIC EACH EYE ×2 (08:29→20:11)
[2023-03-15] MEDS: PANTOPRAZOLE SODIUM IV 40 MG VIAL IV PUSH (08:29)
[2023-03-15] MEDS: FUROSEMIDE INJ 40 MG/4 ML VIAL IV PUSH (08:29)
[2023-03-15 08:40] LABS: Device VENTILATOR
[2023-03-15 08:41] LABS: Arterial Blood Gas PEEP 5 cmH2O; Arterial Blood Gas Tidal Volume 360 ml; Arterial Blood Gas Vent Mode CMV; Arterial Blood Gas Ventilator rate 24 /MIN
--- NOTE | 2023-03-15 09:02 | WPDINTPN ---
Progress Note: A&P Assessment and Plan (1) Acute respiratory failure: Code(s): J96.00 - Acute respiratory failure, unspecified whether with hypoxia or hypercapnia Status: Acute Assessment and Plan: Acute respiratory failure likely related to sepsis, septic shock -03/09: patient intubated at the outside hospital ER -remains on CMV mode of ventilation, peep of 5, 55% FiO2, -ABGs reviewed, ventilator adjusted, wean FiO2 to maintain O2 sats greater than 92% -low tidal volume strategy to avoid volu-trauma -on Precedex infusion, patient does open her eyes and follows simple commands - Continue mechanical ventilation. Chest x-ray this mornin. Stable diffuse lung disease, likely moderate pulmonary edema. 2. Stable small pleural effusions -Lasix this morning was already some good urine output , will try pressure support ventilation later (2) Septic shock: Code(s): A41.9 - Sepsis, unspecified organism; R65.21 - Severe sepsis with septic shock Status: Acute Assessment and Plan: Patient presented with hypotension, shortness of breath, acute kidney injury, found to have Acute surgical abdomen secondary to perforated bowel s/p Exploratory laparotomy with total colectomy for Necrotic colon with perforation, OFF ALL PRESSORS -maintain MAP > 65 mmHg are SBP > 100 mmHg at all times for adequate end organ perfusion -03/10: left femoral arterial line was placed -currently on maintenance fluids LR follow-up insensible fluid loss, as she had a lot of drainage from abdominal incision and NG tube - -improved urine output with normalization of her creatinine AND LACTIC ACIDOSIS -continue Zosyn and vancomycin (03/09) - WEANING stress dose steroids -03/09 blood cultures preliminary blood cultures negative x2 -03/10 sputum cultures budding yeast with pseudohyphae 03/15: Fevers overnight, will obtain blood cultures (3) ITALO (acute kidney injury): Code(s): N17.9 - Acute kidney failure, unspecified Status: Acute Assessment and Plan: Patient presented with acute kidney injury with a creatinine of 1.42 (baseline creatinine of 0.78 on 02/12/2023) -patient has been adequately fluid-resuscitated at the [facility] ER, [facility] ICU and the OR -discontinue IV fluids -good urine output, creatinine has normalized, lactic acid has normalized -will continue to monitor urine output, renal function electrolytes (4) AMS (altered mental status): Qualifiers: Altered mental status type: unspecified Qualified Code(s): R41.82 - Altered mental status, unspecified Code(s): R41.82 - Altered mental status, unspecified Status: Acute Assessment and Plan: Patient presented with altered mental status which most likely related to septic shock, bowel perforation, acute respiratory failure -will manage underlying causes Currently on Precedex infusion, follows simple commands (5) Bowel perforation: Code(s): K63.1 - Perforation of intestine (nontraumatic) Status: Acute Assessment and Plan: 03/09: Initial CT scan of the abdomen/pelvis at the outside hospital ER did not show any perforation or free air does dilated and thickened colon suggestive of enterocolitis 03/09: Repeat CT scan abdomen pelvis at [facility] ICU was performed because of abdominal distension and rigid abdomen which showed interval development of free air in the abdomen with likely perforation somewhere near the cecum. Patient underwent ex lap with total colectomy: According to the operative notes the whole colon from the terminal ileum all the way down to the mid sigmoid colon was totally necrotic. Patient had total colectomy. On the OR table patient was very unstable with significantly low blood pressure, and tachycardia, the fascia was left approximated abdominal was closed with vineet in the skin and was transferred to the ICU Discussed with surgeon, patient will be taken to the OR for closur
[2023-03-15] MEDS: BUDESONIDE RESPULE NEB 0.5 MG/2 ML AMP INHALATION ×2 (09:33→20:35)
--- NOTE | 2023-03-15 10:57 | PCNFU ---
Nutrition Follow-Up Complete: Inadequate energy intake related to altered GI function, mechanical ventilation as evidenced by need for trophic tube feeding/TPN Goal: Meet estimated nutrition needs when medically able - Progressing. TPN is ordered Pt current nutrition is TPN Clinmix 5/15E with lipids @ 30 ml/h: 1011 kcalm 36 g protein, 970 ml total volume. Meets about 75% EER, 42% estimated protein needs . Nutrition recommendation: Continue with current TPN order @ 30 ml/h. Eventual end goal to meet estimated energy needs: TPN @ 50 ml/h: 1352 kcal, 60 g protein, 1450 ml total volume Last recorded weight is 57.2 kg. Bowel Motility:+1 BM 03/15/23. 500 ml out of NG Labs Reviewed: Hgb 10.3, Hct 30.9, Alb 3.1, Na 136, K+ 2.1, BUN 25, Glu 171 Meds Noted: Zosyn, Vanco, precedex, fentanyl, protonix Skin: Incision Additional Notes: Pt did not tolerate trickle feeds of Vital 1.2 so tube feeding was placed on hold and TPN is started today. Continue to closely monitor Monitoring plan of care, tube feeding orders, weights, labs Following daily in ICU rounds, reassess every Saturday and Saturday per policy
[2023-03-15] MEDS: CITALOPRAM HYDROBROMIDE 10 MG TABLET PO (11:25)
[2023-03-15] MEDS: CITALOPRAM HYDROBROMIDE 20 MG TABLET PO (11:25)
[2023-03-15] MEDS: LEVOTHYROXINE SODIUM 50 MCG TABLET PO (11:25)
[2023-03-15] MEDS: lamoTRIgine 100 MG TABLET PO ×2 (11:25→17:23)
[2023-03-15] MEDS: POTASSIUM CHLORIDE 20 MEQ PACKET (FOR LIQUID) 40 MEQ FEED TUBE ×2 (11:36→18:16)
[2023-03-15 11:42] LABS: Glucose Point of Care 226 mg/dl (65-105)
[2023-03-15] MEDS: ENOXAPARIN 40 MG/0.4 ML SYRINGE SUB-Q (11:59)
[2023-03-15] MEDS: INSULIN ASPART (*BKC) 100 UNITS/ML SUB-Q ×3 (11:59→23:33)
[2023-03-15] MEDS: AMINO ACIDS 5%/D15W/E-LYTES/CA 2,000 ML with MULTIVITAMINS-12 INJ VIAL 1 2.5 ML, MULTIV... 30 ML IV CONT (12:21)
[2023-03-15] MEDS: FAT EMULSIONS IV 20% 250 ML 20.83 ML IVPB (12:21)
[2023-03-15 17:13] LABS: Glucose Point of Care 265 mg/dl (65-105)
[2023-03-15 17:34] LABS: Anion Gap 6 mmol/L (8-16); Blood Urea Nitrogen 24 mg/dL (7-17); Carbon Dioxide 32 mmol/L (22-30); Chloride 98 mmol/L (98-107); Estimated CRCL calculation 65 ml/min; Estimated Glomerular Filt Rate > 60; Glucose 247 mg/dL (65-110); Magnesium 1.9 mg/dL (1.6-2.3); Potassium 2.4 mmol/L (3.4-5.0); Sodium 136 mmol/L (137-145)
[2023-03-15] MEDS: MIDAZOLAM HCL (*CRX) 2 MG/2 ML VIAL IV PUSH ×2 (19:40→21:41)
[2023-03-15] MEDS: GABAPENTIN 300 MG CAPSULE PO (20:10)
[2023-03-15] MEDS: MIDAZOLAM 100MG/NS 100ML(*CRX) 100 MG/100 ML BAG IV CONT (22:12)
[2023-03-15 23:33] LABS: Glucose Point of Care 264 mg/dl (65-105)
[2023-03-15] MEDS: dexmedeTOMIDine 400 MCG/100 ML 400 MCG/100 ML BAG 22.39 MCG IV CONT (23:33)
[2023-03-16] VITALS (34 sets, daily range): BP systolic 104–142; BP diastolic 63–80; PULSE 76–108; RESP 14–25; TEMP 36.4–37.2; O2SAT 93–100
[2023-03-16] MEDS: IPRATROPIUM BR 0.02% INH SOLN 0.5 MG/2.5 ML VIAL INHALATION ×4 (01:31→20:52)
[2023-03-16] MEDS: LEVALBUTEROL NEB 1.25 MG/3 ML 0.63 MG INHALATION ×4 (01:32→20:52)
[2023-03-16] MEDS: dexmedeTOMIDine 400 MCG/100 ML 400 MCG/100 ML BAG 22.39 MCG IV CONT (04:29)
[2023-03-16] MEDS: CENTRAL LINE FLUSH 10 ML IV PUSH ×3 (05:01→20:39)
[2023-03-16] MEDS: PIPERACILLN/TAZ 3.375GM/NS50ML 3.375 GM/50 ML BAG IVPB ×3 (05:01→17:31)
[2023-03-16] MEDS: LEVOTHYROXINE SODIUM 50 MCG TABLET PO (05:02)
[2023-03-16] MEDS: INSULIN ASPART (*BKC) 100 UNITS/ML SUB-Q (05:05)
[2023-03-16 05:20] LABS: Base Excess ABG 5.4 mEq/l (+/-2.0); Carboxyhemoglobin 0.8 % THb (0-2.0); Fractional Inspired Oxygen 30 %; HCO3 ABG 26.9 mEq/l (22.0-26.0); Methemoglobin ABG 0.3 %THb (0-1.5); Oxygen Content ABG 14.6 %vol (16.0-22.0); Oxygen Saturation ABG 96.4 % (95.0-100.0); Oxyhemoglobin 93.9 % THb (90.0-100.0); PCO2 ABG 29.1 mmHg (35.0-45.0); PO2 ABG 70.7 mmHg (80.0-100.0); PO2 FiO2 Ratio Arterial Blood 2.36 %
[2023-03-16 05:25] LABS: Site Drawn LEFT BRACHIAL; pH ABG 7.583 (7.350-7.450)
[2023-03-16 05:26] LABS: Arterial Blood Gas PEEP 5 cmH2O; Arterial Blood Gas Tidal Volume 300 ml; Arterial Blood Gas Vent Mode CMV; Arterial Blood Gas Ventilator rate 14 /MIN; Device VENTILATOR
[2023-03-16 06:01] LABS: Glucose Point of Care 201 mg/dl (65-105)
[2023-03-16 06:15] LABS: Basophils Absolute Auto 0.1 K/mm3 (0.0-0.1); Basophils Percent Auto 0.8 % (0.2-1.2); Eosinophils Percent Auto 0.1 % (0-4.4); Hematocrit 30.8 % (37.0-47.0); Hemoglobin 10.1 g/dL (12.0-15.0); Immature Granulocyte Absolute 2.34 K/mm3 (0.00-0.031); Immature Granulocyte Percent A 15.7 % (0-0.5); Lymphocytes Absolute Auto 1.06 K/mm3 (0.9-3.2); Lymphocytes Percent Auto 7.1 % (18.3-44.2); Mean Corpuscular HGB Conc 32.8 g/dl (32-36); Mean Corpuscular Hemoglobin 26.6 pg (26-34); Mean Corpuscular Volume 81.3 fl (80-100); Mean Platelet Volume 11.7 fl (7.4-10.4); Monocytes Absolute Auto 0.8 K/mm3 (0.1-0.6); Monocytes Percent Auto 5.2 % (2.6-8.5); Neutrophils Absolute Auto 10.6 K/mm3 (1.3-6.7); Neutrophils Percent Auto 71.1 % (45.5-73.1); Platelet Count Result 177 k/mm3 (150-375); Red Blood Count 3.79 M/mm3 (4.2-5.4); Red Cell Distribution Width 15.8 % (11.5-14.5); White Blood Count 14.9 K/mm3 (4.5-10.0)
[2023-03-16 06:24] LABS: Ammonia < 9 umol/L (9-30)
[2023-03-16 06:31] LABS: Alanine Aminotransferase 97 U/L (6-35); Albumin Level 2.9 g/dL (3.5-5.1); Alkaline Phosphatase 52 U/L (38-126); Anion Gap 4 mmol/L (8-16); Aspartate Amino Transferase 293 U/L (14-36); Bilirubin,Total 1.2 mg/dL (0.2-1.3); Blood Urea Nitrogen 21 mg/dL (7-17); Carbon Dioxide 34 mmol/L (22-30); Chloride 100 mmol/L (98-107); Estimated CRCL calculation 65 ml/min; Estimated Glomerular Filt Rate > 60; Glucose 140 mg/dL (65-110); Magnesium 1.8 mg/dL (1.6-2.3); Phosphorus 1.5 mg/dL (2.5-4.5); Potassium 2.7 mmol/L (3.4-5.0); Sodium 138 mmol/L (137-145); Triglycerides 135 mg/dL (<150)
[2023-03-16] MEDS: KCL 40 MEQ/WATER 100 ML 100 ML 25 ML IVPB (07:06)
[2023-03-16] MEDS: BUDESONIDE RESPULE NEB 0.5 MG/2 ML AMP INHALATION ×2 (07:20→20:53)
[2023-03-16 08:02] LABS: INR 1.1; Prothrombin Time 14.7 Seconds (11.1-14.7)
[2023-03-16 08:17] LABS: Partial Thromboplastin Time 25.5 SECONDS (22.3-36.8)
[2023-03-16] MEDS: POTASSIUM CHLORIDE 20 MEQ PACKET (FOR LIQUID) 40 MEQ FEED TUBE (08:22)
[2023-03-16] MEDS: ENOXAPARIN 40 MG/0.4 ML SYRINGE SUB-Q (08:22)
[2023-03-16] MEDS: dexmedeTOMIDine 400 MCG/100 ML 400 MCG/100 ML BAG 19.4 MCG IV CONT (08:24)
[2023-03-16] MEDS: MAGNESIUM SULF 2 GM/WATER 50ML 2 GM/50 ML BAG IVPB (08:26)
[2023-03-16] MEDS: lamoTRIgine 100 MG TABLET PO ×2 (08:26→17:02)
[2023-03-16] MEDS: CITALOPRAM HYDROBROMIDE 20 MG TABLET PO (08:26)
[2023-03-16] MEDS: CITALOPRAM HYDROBROMIDE 10 MG TABLET PO (08:26)
[2023-03-16] MEDS: PANTOPRAZOLE SODIUM IV 40 MG VIAL IV PUSH (08:26)
[2023-03-16] MEDS: POTASSIUM PHOS,M-BASIC-D-BASIC 20 MMOL in SODIUM CHLORIDE 0.9% IV 250 ML 64.17 MMOL IVPB (08:27)
[2023-03-16] MEDS: MINERAL OIL/WHITE PETROLATUM OINTMENT 1 APPLIC EACH EYE ×2 (08:27→20:39)
--- NOTE | 2023-03-16 10:55 | PM.PNGS ---
Progress Note: A&P Assessment and Plan (1) Bowel perforation: Code(s): K63.1 - Perforation of intestine (nontraumatic) Status: Acute Assessment and Plan: awaiting better bowel fxn, cont TPN for now, WBC sl increased and will follow, check lactate Subjective Subjective Date/Time Seen: 03/16/23 10:55 Interval history: TF stopped yesterday secondary to high residuals, emesis Review of Systems Review of Systems: ROS unobtainable: Yes unobtainable due to endotracheal tube Exam Const: General: cooperative, no acute distress and ill appearing Resp: Auscultation: diminished lung sounds Cardio: Rate: regular rate Rhythm: regular rhythm GI: Inspection: normal to inspection, distended and incision GI Palp: Yes abdominal tenderness, Yes Soft to palpation and Yes Tenderness to palpation present (GI) Other: ileostomy pink c little output Objective Data Vital Signs Vital Signs: Vital Signs - 24 hr 03/15/23 11:45 03/15/23 12:53 03/15/23 12:00 Temperature 36.1 C L Pulse Rate 85 77 Respiratory Rate 20 Blood Pressure 146/80 H Pulse Oximetry 96 96 Oxygen Delivery Mechanical Ventilation Fraction of Inspired Oxygen 30 30 03/15/23 12:00 03/15/23 12:00 03/15/23 13:50 Temperature Pulse Rate 79 72 Respiratory Rate 20 Blood Pressure 127/70 Pulse Oximetry 96 97 Oxygen Delivery Mechanical Ventilation Fraction of Inspired Oxygen 30 03/15/23 14:00 03/15/23 14:50 03/15/23 14:51 Temperature Pulse Rate 86 74 72 Respiratory Rate 24 H 23 H Blood Pressure Pulse Oximetry Oxygen Delivery Fraction of Inspired Oxygen 03/15/23 14:56 03/15/23 15:45 03/15/23 16:00 Temperature 36.4 C L Pulse Rate 74 104 H Respiratory Rate 23 H Blood Pressure 140/95 H Pulse Oximetry 99 95 96 Oxygen Delivery Mechanical Ventilation Mechanical Ventilation Fraction of Inspired Oxygen 30 30 03/15/23 16:00 03/15/23 16:00 03/15/23 17:49 Temperature Pulse Rate 99 91 Respiratory Rate 20 Blood Pressure 146/67 H Pulse Oximetry 96 Oxygen Delivery Fraction of Inspired Oxygen 30 03/15/23 18:00 03/15/23 18:00 03/15/23 19:12 Temperature Pulse Rate 87 101 H 106 H Respiratory Rate 24 H Blood Pressure Pulse Oximetry 96 Oxygen Delivery Mechanical Ventilation Fraction of Inspired Oxygen 30 03/15/23 20:00 03/15/23 20:00 03/15/23 20:00 Temperature 36.1 C L Pulse Rate 87 Respiratory Rate 22 H Blood Pressure 142/77 H Pulse Oximetry 97 Oxygen Delivery Mechanical Ventilation Fraction of Inspired Oxygen 30 30 03/15/23 20:00 03/15/23 20:35 03/15/23 20:36 Temperature Pulse Rate 87 84 84 Respiratory Rate 19 Blood Pressure Pulse Oximetry 97 Oxygen Delivery Mechanical Ventilation Fraction of Inspired Oxygen 30 03/15/23 22:12 03/15/23 22:00 03/15/23 22:03 Temperature 36.2 C L Pulse Rate 89 88 88 Respiratory Rate 17 20 Blood Pressure 139/78 Pulse Oximetry 97 Oxygen Delivery Fraction of Inspired Oxygen 03/16/23 00:00 03/16/23 00:00 03/16/23 00:01 Temperature 36.5 C Pulse Rate 91 Respiratory Rate 20 Blood Pressure 137/79 Pulse Oximetry 97 Oxygen Delivery Mechanical Ventilation Fraction of Inspired Oxygen 30 30 03/16/23 00:00 03/15/23 23:10 03/16/23 01:30 Temperature Pulse Rate 84 86 82 Respiratory Rate Blood Pressure Pulse Oximetry 97 97 Oxygen Delivery Mechanical Ventilation Mechanical Ventilation Fraction of Inspired Oxygen 30 30 03/16/23 01:33 03/15/23 20:57 03/16/23 02:00 Temperature Pulse Rate 82 89 108 H Respiratory Rate 18 18 Blood Pressure Pulse Oximetry Oxygen Delivery Fraction of Inspired Oxygen 03/16/23 02:00 03/16/23 03:26 03/16/23 04:00 Temperature 36.8 C 37.1 C Pulse Rate 108 H 82 Respiratory Rate 25 H 19 Blood Pressure 120/80 133/77 Pulse Oximetry 99 98 Oxygen Delivery Mechanical Ve
--- NOTE | 2023-03-16 11:08 | PCFNICU ---
ICU Rounding Note: Pt current nutrition is TPN. Last recorded weight is 53.9 kg, down from 59.8 kg on admit. Bowel Motility:ileostomy-little output noted. Labs Reviewed:Glu 140, Cr 0.6,K 2.7,Alb 2.9 Meds Noted:Versed, Precedex, Clinimix E at 40 ml/hr with 250 ml of 20% Lipid Emulsion. Skin: incision Additional Notes:Patient remans on mechanical vent. Tube feeding on hold at this time-emesis noted. TPN at 30ml/hr with orders to advance to 40 ml/hr today. TPN at 40 ml/hr providing 1182 kcals/48 gms protein. Recommend advancing to goal rate of TPN at 50ml/hr 03/17. Following in ICU rounds, reassess every Saturday and Saturday per policy.
--- NOTE | 2023-03-16 11:53 | WPDINTPN ---
Progress Note: A&P Assessment and Plan (1) Acute respiratory failure: Code(s): J96.00 - Acute respiratory failure, unspecified whether with hypoxia or hypercapnia Status: Acute Assessment and Plan: Acute respiratory failure likely related to sepsis, septic shock -03/09: patient intubated at the outside hospital ER -remains on CMV mode of ventilation, peep of 5, 30% FiO2 -ABGs reviewed, ventilator adjusted, wean FiO2 to maintain O2 sats greater than 92% -low tidal volume strategy to avoid volu-trauma -on Precedex infusion and low-dose Versed continue - Continue mechanical ventilation. Chest x-ray this morning: Mild pulmonary edema. 2. Airspace opacities in right middle lobe and left lower lobe, consistent with atelectasis versus pneumonia.3. Stable small pleural effusions. -03/15: Good response to Lasix -03/16: placed patient on ASV, I have asked the bedside RN to come down on the Precedex, will try to place patient on pressure support in evaluate for extubation (2) Septic shock: Code(s): A41.9 - Sepsis, unspecified organism; R65.21 - Severe sepsis with septic shock Status: Acute Assessment and Plan: Patient presented with hypotension, shortness of breath, acute kidney injury, found to have Acute surgical abdomen secondary to perforated bowel s/p Exploratory laparotomy with total colectomy for Necrotic colon with perforation, OFF ALL PRESSORS -maintain MAP > 65 mmHg are SBP > 100 mmHg at all times for adequate end organ perfusion -03/10: left femoral arterial line was placed -currently on maintenance fluids LR follow-up insensible fluid loss, as she had a lot of drainage from abdominal incision and NG tube - -improved urine output with normalization of her creatinine AND LACTIC ACIDOSIS -continue Zosyn and vancomycin (03/09) -off stress dose -03/09: Blood cultures preliminary blood cultures negative x2 -03/10: Sputum cultures budding yeast with pseudohyphae -03/15: Repeat Blood cultures: Preliminary reports are no growth x2 03/15: Fevers overnight, will obtain blood cultures 03/16: Afebrile, slight increase in the low WBC count, will continue to monitor, discussed with surgeon (3) ITALO (acute kidney injury): Code(s): N17.9 - Acute kidney failure, unspecified Status: Acute Assessment and Plan: Patient presented with acute kidney injury with a creatinine of 1.42 (baseline creatinine of 0.78 on 02/12/2023) -patient has been adequately fluid-resuscitated at the outside hospital ER, [facility] ICU and the OR -discontinue IV fluids -good urine output, creatinine has normalized, lactic acid has normalized -will continue to monitor urine output, renal function electrolytes (4) AMS (altered mental status): Qualifiers: Altered mental status type: unspecified Qualified Code(s): R41.82 - Altered mental status, unspecified Code(s): R41.82 - Altered mental status, unspecified Status: Acute Assessment and Plan: Patient presented with altered mental status which most likely related to septic shock, bowel perforation, acute respiratory failure -will manage underlying causes Currently on Precedex infusion, follows simple commands (5) Bowel perforation: Code(s): K63.1 - Perforation of intestine (nontraumatic) Status: Acute Assessment and Plan: 03/09: Initial CT scan of the abdomen/pelvis at the [facility] ER did not show any perforation or free air does dilated and thickened colon suggestive of enterocolitis 03/09: Repeat CT scan abdomen pelvis at [facility] ICU was performed because of abdominal distension and rigid abdomen which showed interval development of free air in the abdomen with likely perforation somewhere near the cecum. Patient underwent ex lap with total colectomy: According to the operative notes the whole colon from the terminal ileum all the way down to the mid sigmoid colon was totally necrotic. Patient had
[2023-03-16] MEDS: AMINO ACIDS 5%/D15W/E-LYTES/CA 2,000 ML with MULTIVITAMINS-12 INJ VIAL 1 2.5 ML, MULTIV... 40 ML IV CONT (12:26)
[2023-03-16] MEDS: FAT EMULSIONS IV 20% 250 ML 20.83 ML IVPB (12:27)
[2023-03-16 12:37] LABS: Glucose Point of Care 173 mg/dl (65-105)
[2023-03-16 14:20] LABS: Vancomycin Trough 13.5 ug/mL (10.0-20.0)
[2023-03-16] MEDS: dexmedeTOMIDine 400 MCG/100 ML 400 MCG/100 ML BAG 13.43 MCG IV CONT (14:42)
[2023-03-16] MEDS: VANCOMYCIN 1,750 MG/NS 500 ML 1,750 MG/500 ML BAG 250 MG IVPB (14:45)
[2023-03-16] MEDS: HYDROmorphone HCL INJ (*CRX) 1 MG/ML SYR IV PUSH (17:02)
[2023-03-16 18:16] LABS: Glucose Point of Care 178 mg/dl (65-105)
[2023-03-16] MEDS: dexmedeTOMIDine 400 MCG/100 ML 400 MCG/100 ML BAG 14.93 MCG IV CONT (20:38)
[2023-03-16] MEDS: GABAPENTIN 300 MG CAPSULE PO (20:39)
[2023-03-17] VITALS (33 sets, daily range): BP systolic 93–119; BP diastolic 50–72; PULSE 83–105; RESP 14–26; TEMP 36.8–37.3; O2SAT 95–100
[2023-03-17] MEDS: PIPERACILLN/TAZ 3.375GM/NS50ML 3.375 GM/50 ML BAG IVPB ×4 (00:51→16:52)
[2023-03-17 01:08] LABS: Glucose Point of Care 153 mg/dl (65-105)
[2023-03-17] MEDS: LEVALBUTEROL NEB 1.25 MG/3 ML 0.63 MG INHALATION ×4 (02:21→19:57)
[2023-03-17] MEDS: IPRATROPIUM BR 0.02% INH SOLN 0.5 MG/2.5 ML VIAL INHALATION ×4 (02:21→19:58)
[2023-03-17] MEDS: dexmedeTOMIDine 400 MCG/100 ML 400 MCG/100 ML BAG 14.93 MCG IV CONT ×2 (03:20→10:50)
[2023-03-17] MEDS: CENTRAL LINE FLUSH 10 ML IV PUSH ×3 (05:57→20:25)
[2023-03-17] MEDS: LEVOTHYROXINE SODIUM 50 MCG TABLET PO (06:02)
[2023-03-17 06:12] LABS: Glucose Point of Care 130 mg/dl (65-105)
[2023-03-17 06:41] LABS: Anion Gap 3 mmol/L (8-16); Blood Urea Nitrogen 19 mg/dL (7-17); Calcium 7.5 mg/dL (8.4-10.2); Carbon Dioxide 28 mmol/L (22-30); Chloride 102 mmol/L (98-107); Estimated CRCL calculation 76 ml/min; Estimated Glomerular Filt Rate > 60; Glucose 127 mg/dL (65-110); Phosphorus 2.9 mg/dL (2.5-4.5); Potassium 2.9 mmol/L (3.4-5.0); Sodium 133 mmol/L (137-145)
[2023-03-17 07:38] LABS: Basophils Absolute Auto 0.1 K/mm3 (0.0-0.1); Basophils Percent Auto 0.8 % (0.2-1.2); Eosinophils Absolute Auto 0.1 K/mm3 (0-0.3); Eosinophils Percent Auto 0.3 % (0-4.4); Hematocrit 30.4 % (37.0-47.0); Hemoglobin 9.7 g/dL (12.0-15.0); Immature Granulocyte Absolute 1.74 K/mm3 (0.00-0.031); Immature Granulocyte Percent A 12.2 % (0-0.5); Lymphocytes Absolute Auto 0.89 K/mm3 (0.9-3.2); Lymphocytes Percent Auto 6.2 % (18.3-44.2); Mean Corpuscular HGB Conc 31.9 g/dl (32-36); Mean Corpuscular Hemoglobin 26.6 pg (26-34); Mean Corpuscular Volume 83.5 fl (80-100); Mean Platelet Volume 12.5 fl (7.4-10.4); Monocytes Absolute Auto 0.6 K/mm3 (0.1-0.6); Monocytes Percent Auto 4.1 % (2.6-8.5); Neutrophils Absolute Auto 10.9 K/mm3 (1.3-6.7); Neutrophils Percent Auto 76.4 % (45.5-73.1); Platelet Count Result 174 k/mm3 (150-375); Red Blood Count 3.64 M/mm3 (4.2-5.4); Red Cell Distribution Width 16.4 % (11.5-14.5); White Blood Count 14.3 K/mm3 (4.5-10.0)
[2023-03-17] MEDS: POTASSIUM CHLORIDE 20 MEQ PACKET (FOR LIQUID) 40 MEQ FEED TUBE ×2 (08:18→16:52)
[2023-03-17] MEDS: FUROSEMIDE INJ 40 MG/4 ML VIAL 20 MG IV PUSH (08:18)
[2023-03-17] MEDS: KCL 40 MEQ/WATER 100 ML 100 ML 25 ML IVPB (08:18)
[2023-03-17] MEDS: CITALOPRAM HYDROBROMIDE 10 MG TABLET PO (08:19)
[2023-03-17] MEDS: lamoTRIgine 100 MG TABLET PO ×2 (08:19→16:51)
[2023-03-17] MEDS: ENOXAPARIN 40 MG/0.4 ML SYRINGE SUB-Q (08:19)
[2023-03-17] MEDS: CITALOPRAM HYDROBROMIDE 20 MG TABLET PO (08:19)
[2023-03-17] MEDS: MINERAL OIL/WHITE PETROLATUM OINTMENT 1 APPLIC EACH EYE (08:19)
[2023-03-17] MEDS: PANTOPRAZOLE SODIUM IV 40 MG VIAL IV PUSH (08:20)
[2023-03-17] MEDS: VANCOMYCIN 1,750 MG/NS 500 ML 1,750 MG/500 ML BAG 250 MG IVPB (08:20)
[2023-03-17] MEDS: BUDESONIDE RESPULE NEB 0.5 MG/2 ML AMP INHALATION ×2 (08:25→19:57)
--- NOTE | 2023-03-17 08:53 | WPDINTPN ---
Progress Note: A&P Assessment and Plan (1) Acute respiratory failure: Code(s): J96.00 - Acute respiratory failure, unspecified whether with hypoxia or hypercapnia Status: Acute Assessment and Plan: Acute respiratory failure likely related to sepsis, septic shock -03/09: patient intubated at the outside hospital ER -remains on CMV mode of ventilation, peep of 5, 30% FiO2 -ABGs reviewed, ventilator adjusted, wean FiO2 to maintain O2 sats greater than 92% -low tidal volume strategy to avoid volu-trauma -on Precedex infusion and low-dose Versed continue - Continue mechanical ventilation. Chest x-ray this mornin. Airspace opacities in right lower lung zone and left mid and lower lung zones with worsening on the left, consistent with atelectasis versus pneumonia.2. Stable small pleural effusions. -03/15: Good response to Lasix -03/16: Tolerated pressure support ventilation 10/5 all day., -03/17: Place patient on pressure support 12/20, will switch to 10/20 and evaluate for extubation. Will give Lasix today (2) Septic shock: Code(s): A41.9 - Sepsis, unspecified organism; R65.21 - Severe sepsis with septic shock Status: Acute Assessment and Plan: Patient presented with hypotension, shortness of breath, acute kidney injury, found to have Acute surgical abdomen secondary to perforated bowel s/p Exploratory laparotomy with total colectomy for Necrotic colon with perforation, OFF ALL PRESSORS -maintain MAP > 65 mmHg are SBP > 100 mmHg at all times for adequate end organ perfusion -03/10: left femoral arterial line was placed -currently on maintenance fluids LR follow-up insensible fluid loss, as she had a lot of drainage from abdominal incision and NG tube - -improved urine output with normalization of her creatinine AND LACTIC ACIDOSIS -continue Zosyn and vancomycin (03/09) -off stress dose -03/09: Blood cultures preliminary blood cultures negative x2 -03/10: Sputum cultures budding yeast with pseudohyphae -03/15: Repeat Blood cultures: Preliminary reports are no growth x2 03/15: Fevers overnight, will obtain blood cultures 03/16: Afebrile, slight increase WBC count, will continue to monitor, discussed with surgeon 03/17: Afebrile, stable WBC count with mild decrease this morning (3) ITALO (acute kidney injury): Code(s): N17.9 - Acute kidney failure, unspecified Status: Acute Assessment and Plan: Patient presented with acute kidney injury with a creatinine of 1.42 (baseline creatinine of 0.78 on 02/12/2023) -patient has been adequately fluid-resuscitated at the outside hospital ER, [facility] ICU and the OR -discontinue IV fluids -good urine output, creatinine has normalized, lactic acid has normalized -will continue to monitor urine output, renal function electrolytes (4) AMS (altered mental status): Qualifiers: Altered mental status type: unspecified Qualified Code(s): R41.82 - Altered mental status, unspecified Code(s): R41.82 - Altered mental status, unspecified Status: Acute Assessment and Plan: Patient presented with altered mental status which most likely related to septic shock, bowel perforation, acute respiratory failure -will manage underlying causes Currently on Precedex infusion, follows simple commands, opens eyes and nods to questions (5) Bowel perforation: Code(s): K63.1 - Perforation of intestine (nontraumatic) Status: Acute Assessment and Plan: 03/09: Initial CT scan of the abdomen/pelvis at the outside hospital ER did not show any perforation or free air does dilated and thickened colon suggestive of enterocolitis 03/09: Repeat CT scan abdomen pelvis at [facility] ICU was performed because of abdominal distension and rigid abdomen which showed interval development of free air in the abdomen with likely perforation somewhere near the cecum. Patient underwent ex lap with total colectomy: According t
[2023-03-17 10:50] LABS: Alveolar/Arterial O2 Gradient 87.7 mmHg; Base Excess ABG 3.3 mEq/l (+/-2.0); Fractional Inspired Oxygen 30 %; HCO3 ABG 25.8 mEq/l (22.0-26.0); Oxygen Saturation ABG 97.5 % (95.0-100.0); Oxyhemoglobin 95.6 % THb (90.0-100.0); PCO2 ABG 32.6 mmHg (35.0-45.0); PO2 ABG 87.9 mmHg (80.0-100.0); PO2 FiO2 Ratio Arterial Blood 2.93 %; Total Hemoglobin 12.6 g/dL (12.0-18.0)
[2023-03-17 10:53] LABS: Device VENTILATOR; Site Drawn RIGHT BRACHIAL; pH ABG 7.517 (7.350-7.450)
[2023-03-17 10:54] LABS: Arterial Blood Gas PEEP 5 cmH2O; Arterial Blood Gas Pressure Support 8 cmH2O; Arterial Blood Gas Vent Mode SPONTANEOUS
--- NOTE | 2023-03-17 11:57 | PM.PNGS ---
Progress Note: A&P Assessment and Plan (1) Bowel perforation: Code(s): K63.1 - Perforation of intestine (nontraumatic) Status: Acute Assessment and Plan: extubated and off all pressors, awaiting ileostomy fxn, cont TPN for now Subjective Subjective Date/Time Seen: 03/17/23 11:57 Interval history: extubated this morning, ow no acute issues Review of Systems Review of Systems: All systems reviewed & are unremarkable except as noted in HPI and below Exam Const: General: cooperative, no acute distress and ill appearing Resp: Auscultation: diminished lung sounds Cardio: Rate: regular rate Rhythm: regular rhythm GI: Inspection: normal to inspection, distended and incision GI Palp: Yes abdominal tenderness, Yes Soft to palpation, Yes Tenderness to palpation present (GI), No Guarding due to palpation present (GI) and No Rigid due to palpation Other: ileostomy - pink, viable, very little output Objective Data Vital Signs Vital Signs: Vital Signs - 24 hr 03/16/23 12:00 03/16/23 12:00 03/16/23 12:00 Temperature 36.7 C Pulse Rate 82 82 Respiratory Rate 14 14 Blood Pressure 114/72 Pulse Oximetry 98 98 Oxygen Delivery Mechanical Ventilation Oxygen Flow Rate Fraction of Inspired Oxygen 30 30 03/16/23 12:00 03/16/23 12:32 03/16/23 13:00 Temperature Pulse Rate 82 82 Respiratory Rate 14 Blood Pressure Pulse Oximetry Oxygen Delivery Oxygen Flow Rate Fraction of Inspired Oxygen 30 03/16/23 13:35 03/16/23 13:35 03/16/23 13:45 Temperature Pulse Rate 89 89 94 Respiratory Rate 22 H 22 H Blood Pressure Pulse Oximetry 99 Oxygen Delivery Mechanical Ventilation Oxygen Flow Rate Fraction of Inspired Oxygen 30 03/16/23 14:00 03/16/23 14:00 03/16/23 14:00 Temperature 36.4 C Pulse Rate 87 88 88 Respiratory Rate 16 16 Blood Pressure 104/72 Pulse Oximetry 98 Oxygen Delivery Oxygen Flow Rate Fraction of Inspired Oxygen 03/16/23 14:42 03/16/23 14:42 03/16/23 17:03 Temperature Pulse Rate 90 90 88 Respiratory Rate 19 19 Blood Pressure Pulse Oximetry 99 Oxygen Delivery Mechanical Ventilation Oxygen Flow Rate Fraction of Inspired Oxygen 30 03/16/23 16:00 03/16/23 16:00 03/16/23 16:00 Temperature 36.6 C Pulse Rate 94 76 Respiratory Rate 24 H 16 Blood Pressure 142/80 H Pulse Oximetry 99 99 Oxygen Delivery Mechanical Ventilation Oxygen Flow Rate Fraction of Inspired Oxygen 30 30 03/16/23 16:00 03/16/23 18:00 03/16/23 18:00 Temperature Pulse Rate 94 87 87 Respiratory Rate 16 Blood Pressure 130/72 Pulse Oximetry 99 Oxygen Delivery Oxygen Flow Rate Fraction of Inspired Oxygen 03/16/23 16:00 03/16/23 20:00 03/16/23 20:53 Temperature 37.0 C Pulse Rate 94 93 88 Respiratory Rate 16 14 14 Blood Pressure 107/70 Pulse Oximetry 97 Oxygen Delivery Oxygen Flow Rate Fraction of Inspired Oxygen 03/16/23 20:54 03/16/23 21:07 03/16/23 20:00 Temperature Pulse Rate 91 90 Respiratory Rate 18 Blood Pressure Pulse Oximetry 100 Oxygen Delivery Mechanical Ventilation Oxygen Flow Rate Fraction of Inspired Oxygen 30 30 03/16/23 20:00 03/16/23 20:00 03/16/23 22:00 Temperature Pulse Rate 92 88 Respiratory Rate Blood Pressure Pulse Oximetry Oxygen Delivery Mechanical Ventilation Oxygen Flow Rate Fraction of Inspired Oxygen 30 03/16/23 22:01 03/16/23 23:26 03/17/23 00:00 Temperature 36.7 C Pulse Rate 88 83 Respiratory Rate 14 Blood Pressure 118/72 Pulse Oximetry 100 99 Oxygen Delivery Mechanical Ventilation Mechanical Ventilation Oxygen Flow Rate Fraction of Inspired Oxygen 30 30 03/17/23 00:00 03/17/23 00:00 03/17/23 00:00 Temperature 36.8 C Pulse Rate 84 84 Respiratory Rate 14 Blood Pressure 116/69 Pulse Oximetry 99 Oxygen Delivery Oxygen Flow Rate
[2023-03-17] MEDS: diazePAM (*CRX) 5 MG TABLET PO (12:17)
[2023-03-17 12:25] LABS: Glucose Point of Care 114 mg/dl (65-105)
--- NOTE | 2023-03-17 12:57 | PC.NURSE ---
pt extubated and able to tell me some relatives names and info all living in [place]: Mother Judith Danielson ([phone]), Daughters Camille Weinberg and Nallely Jon. no phone numbers for daughters. Attempted to called mother Judith with no answer but did leave voicemail to return call
[2023-03-17] MEDS: AMINO ACIDS 5%/D15W/E-LYTES/CA 2,000 ML with MULTIVITAMINS-12 INJ VIAL 1 2.5 ML, MULTIV... 50 ML IV CONT (13:02)
[2023-03-17] MEDS: FAT EMULSIONS IV 20% 250 ML 20.83 ML IVPB (13:03)
[2023-03-17 14:22] LABS: Anion Gap 0 mmol/L (8-16); Blood Urea Nitrogen 20 mg/dL (7-17); Calcium 7.6 mg/dL (8.4-10.2); Carbon Dioxide 31 mmol/L (22-30); Chloride 102 mmol/L (98-107); Estimated CRCL calculation 76 ml/min; Estimated Glomerular Filt Rate > 60; Glucose 134 mg/dL (65-110); Potassium 3.7 mmol/L (3.4-5.0); Sodium 133 mmol/L (137-145)
--- NOTE | 2023-03-17 15:11 | PC.NURSE ---
Mother, Judith Danielson, called back. stated she would be available for information but other then that would rather not be involved in her care.
[2023-03-17 17:02] LABS: Glucose Point of Care 129 mg/dl (65-105)
[2023-03-17] MEDS: ONDANSETRON INJ 4 MG/2 ML VIAL IV PUSH (17:37)
[2023-03-17] MEDS: dexmedeTOMIDine 400 MCG/100 ML 400 MCG/100 ML BAG 10.45 MCG IV CONT (19:24)
[2023-03-17] MEDS: HYDROmorphone HCL INJ (*CRX) 1 MG/ML SYR IV PUSH (20:25)
[2023-03-17] MEDS: GABAPENTIN 300 MG CAPSULE PO (20:25)
[2023-03-17 23:49] LABS: Glucose Point of Care 154 mg/dl (65-105)
[2023-03-18] VITALS (30 sets, daily range): BP systolic 91–112; BP diastolic 44–64; PULSE 80–130; RESP 16–30; TEMP 36.4–37.6; O2SAT 92–100
[2023-03-18] MEDS: PIPERACILLN/TAZ 3.375GM/NS50ML 3.375 GM/50 ML BAG IVPB ×4 (00:11→18:20)
[2023-03-18] MEDS: IPRATROPIUM BR 0.02% INH SOLN 0.5 MG/2.5 ML VIAL INHALATION ×4 (02:20→20:39)
[2023-03-18] MEDS: LEVALBUTEROL NEB 1.25 MG/3 ML 0.63 MG INHALATION ×4 (02:20→20:39)
[2023-03-18] MEDS: VANCOMYCIN 1,750 MG/NS 500 ML 1,750 MG/500 ML BAG 250 MG IVPB (04:04)
[2023-03-18] MEDS: dexmedeTOMIDine 400 MCG/100 ML 400 MCG/100 ML BAG 8.96 MCG IV CONT (04:08)
[2023-03-18] MEDS: CENTRAL LINE FLUSH 10 ML IV PUSH ×3 (05:40→20:15)
[2023-03-18] MEDS: LEVOTHYROXINE SODIUM 50 MCG TABLET PO (05:40)
[2023-03-18 05:56] LABS: Basophils Absolute Auto 0.1 K/mm3 (0.0-0.1); Basophils Percent Auto 0.7 % (0.2-1.2); Eosinophils Absolute Auto 0.1 K/mm3 (0-0.3); Eosinophils Percent Auto 0.3 % (0-4.4); Hematocrit 30.2 % (37.0-47.0); Hemoglobin 9.4 g/dL (12.0-15.0); Immature Granulocyte Absolute 1.44 K/mm3 (0.00-0.031); Immature Granulocyte Percent A 9.9 % (0-0.5); Lymphocytes Absolute Auto 0.72 K/mm3 (0.9-3.2); Lymphocytes Percent Auto 4.9 % (18.3-44.2); Mean Corpuscular HGB Conc 31.1 g/dl (32-36); Mean Corpuscular Hemoglobin 26.3 pg (26-34); Mean Corpuscular Volume 84.6 fl (80-100); Mean Platelet Volume 12.3 fl (7.4-10.4); Monocytes Absolute Auto 0.6 K/mm3 (0.1-0.6); Monocytes Percent Auto 4.2 % (2.6-8.5); Neutrophils Absolute Auto 11.7 K/mm3 (1.3-6.7); Platelet Count Result 184 k/mm3 (150-375); Red Blood Count 3.57 M/mm3 (4.2-5.4); Red Cell Distribution Width 16.4 % (11.5-14.5); White Blood Count 14.6 K/mm3 (4.5-10.0)
[2023-03-18 06:06] LABS: INR 1.1; Prothrombin Time 14.6 Seconds (11.1-14.7)
[2023-03-18 06:07] LABS: Partial Thromboplastin Time 30.6 SECONDS (22.3-36.8)
[2023-03-18 06:10] LABS: Alanine Aminotransferase 57 U/L (6-35); Albumin Level 2.4 g/dL (3.5-5.1); Alkaline Phosphatase 50 U/L (38-126); Anion Gap 4 mmol/L (8-16); Aspartate Amino Transferase 109 U/L (14-36); Bilirubin,Total 0.6 mg/dL (0.2-1.3); Blood Urea Nitrogen 23 mg/dL (7-17); Calcium 7.6 mg/dL (8.4-10.2); Carbon Dioxide 27 mmol/L (22-30); Chloride 102 mmol/L (98-107); Estimated CRCL calculation 76 ml/min; Estimated Glomerular Filt Rate > 60; Glucose 145 mg/dL (65-110); Magnesium 1.9 mg/dL (1.6-2.3); Phosphorus 3.7 mg/dL (2.5-4.5); Potassium 3.4 mmol/L (3.4-5.0); Sodium 133 mmol/L (137-145); Triglycerides 87 mg/dL (<150)
[2023-03-18 06:17] LABS: Transferrin 117 mg/dL (206-381)
[2023-03-18] MEDS: ONDANSETRON INJ 4 MG/2 ML VIAL IV PUSH ×2 (08:00→20:15)
[2023-03-18] MEDS: BUDESONIDE RESPULE NEB 0.5 MG/2 ML AMP INHALATION ×2 (08:14→20:39)
--- NOTE | 2023-03-18 09:21 | WPDINTPN ---
Progress Note: A&P Assessment and Plan (1) Acute respiratory failure: Code(s): J96.00 - Acute respiratory failure, unspecified whether with hypoxia or hypercapnia Status: Acute Assessment and Plan: Acute respiratory failure likely related to sepsis, septic shock -03/09: patient intubated at the [facility] ER -03/17: successfully extubate -will wean Precedex infusion as have order home diazepam -currently on room air good O2 sats -encourage incentive spirometry (2) Septic shock: Code(s): A41.9 - Sepsis, unspecified organism; R65.21 - Severe sepsis with septic shock Status: Acute Assessment and Plan: RESOLVED Patient presented with hypotension, shortness of breath, acute kidney injury, found to have Acute surgical abdomen secondary to perforated bowel s/p Exploratory laparotomy with total colectomy for Necrotic colon with perforation, OFF ALL PRESSORS -maintain MAP > 65 mmHg are SBP > 100 mmHg at all times for adequate end organ perfusion -03/10: left femoral arterial line was placed -currently on maintenance fluids LR follow-up insensible fluid loss, as she had a lot of drainage from abdominal incision and NG tube - -improved urine output with normalization of her creatinine AND LACTIC ACIDOSIS -continue Zosyn (03/09) continue per surgery -status post vancomycin -off stress dose -03/09: Blood cultures preliminary blood cultures negative x2 -03/10: Sputum cultures budding yeast with pseudohyphae -03/15: Repeat Blood cultures: Preliminary reports are no growth x2 03/15: Fevers overnight, will obtain blood cultures 03/16: Afebrile, slight increase WBC count, will continue to monitor, discussed with surgeon 03/17: Afebrile, stable WBC count with mild decrease this morning (3) ITALO (acute kidney injury): Code(s): N17.9 - Acute kidney failure, unspecified Status: Acute Assessment and Plan: Patient presented with acute kidney injury with a creatinine of 1.42 (baseline creatinine of 0.78 on 02/12/2023) -patient has been adequately fluid-resuscitated at the outside [facility] ER, [facility] ICU and the OR -discontinue IV fluids -good urine output, creatinine has normalized, lactic acid has normalized -will continue to monitor urine output, renal function electrolytes (4) AMS (altered mental status): Qualifiers: Altered mental status type: unspecified Qualified Code(s): R41.82 - Altered mental status, unspecified Code(s): R41.82 - Altered mental status, unspecified Status: Acute Assessment and Plan: Patient presented with altered mental status which most likely related to septic shock, bowel perforation, acute respiratory failure -will manage underlying causes Currently on Precedex infusion, patient has been extubated, talking, follows simple commands and moves all extremities (5) Bowel perforation: Code(s): K63.1 - Perforation of intestine (nontraumatic) Status: Acute Assessment and Plan: 03/09: Initial CT scan of the abdomen/pelvis at the outside hospital ER did not show any perforation or free air does dilated and thickened colon suggestive of enterocolitis 03/09: Repeat CT scan abdomen pelvis at [facility] ICU was performed because of abdominal distension and rigid abdomen which showed interval development of free air in the abdomen with likely perforation somewhere near the cecum. Patient underwent ex lap with total colectomy: According to the operative notes the whole colon from the terminal ileum all the way down to the mid sigmoid colon was totally necrotic. Patient had total colectomy. On the OR table patient was very unstable with significantly low blood pressure, and tachycardia, the fascia was left approximated abdominal was closed with vineet in the skin and was transferred to the ICU Discussed with surgeon, patient will be taken to the OR for closure of her abdomen today, 03/12/2023. Patient was giv
[2023-03-18] MEDS: MAGNESIUM SULF 2 GM/WATER 50ML 2 GM/50 ML BAG IVPB (09:46)
[2023-03-18] MEDS: KCL 40 MEQ/WATER 100 ML 100 ML 25 ML IVPB (09:46)
[2023-03-18] MEDS: ENOXAPARIN 40 MG/0.4 ML SYRINGE SUB-Q (09:47)
[2023-03-18] MEDS: lamoTRIgine 100 MG TABLET PO ×2 (09:48→16:27)
[2023-03-18] MEDS: CITALOPRAM HYDROBROMIDE 10 MG TABLET PO (09:48)
[2023-03-18] MEDS: CITALOPRAM HYDROBROMIDE 20 MG TABLET PO (09:48)
[2023-03-18] MEDS: PANTOPRAZOLE SODIUM IV 40 MG VIAL IV PUSH (09:49)
[2023-03-18] MEDS: diazePAM (*CRX) 2 MG TABLET 3 MG PO ×2 (10:40→18:19)
--- NOTE | 2023-03-18 11:16 | PM.PNGS ---
Progress Note: A&P Assessment and Plan (1) Bowel perforation: Code(s): K63.1 - Perforation of intestine (nontraumatic) Status: Acute Assessment and Plan: doing well, will get swallow study and possibly start diet, if fails will try to restart TFs Subjective Subjective Date/Time Seen: 03/18/23 11:16 Interval history: feels ok, more ileostomy output, doing well on room air Review of Systems Review of Systems: All systems reviewed & are unremarkable except as noted in HPI and below Exam Const: General: cooperative, comfortable, no acute distress and ill appearing Resp: Auscultation: clear to auscultation bilaterally Cardio: Rate: regular rate Rhythm: regular rhythm GI: Inspection: normal to inspection, non-distended and incision GI Palp: Yes abdominal tenderness, Yes Soft to palpation and Yes Tenderness to palpation present (GI) Other: ileostomy - viable, more output Objective Data Vital Signs Vital Signs: Vital Signs - 24 hr 03/17/23 12:00 03/17/23 12:00 03/17/23 12:00 Temperature 36.9 C Pulse Rate 88 85 Respiratory Rate 22 H Blood Pressure 93/59 L Pulse Oximetry 99 100 Oxygen Delivery Nasal Cannula Oxygen Flow Rate 3 Fraction of Inspired Oxygen 03/17/23 12:36 03/17/23 14:00 03/17/23 14:00 Temperature 37.2 C Pulse Rate 85 88 88 Respiratory Rate 22 H 22 H Blood Pressure 103/59 L Pulse Oximetry 100 Oxygen Delivery Oxygen Flow Rate Fraction of Inspired Oxygen 03/17/23 14:12 03/17/23 15:35 03/17/23 15:48 Temperature Pulse Rate 88 91 91 Respiratory Rate 22 H 18 25 H Blood Pressure Pulse Oximetry Oxygen Delivery Oxygen Flow Rate Fraction of Inspired Oxygen 03/17/23 15:49 03/17/23 16:00 03/17/23 16:00 Temperature 37.3 C Pulse Rate 92 96 Respiratory Rate 20 26 H Blood Pressure 100/54 L Pulse Oximetry 98 97 95 Oxygen Delivery Nasal Cannula Nasal Cannula Oxygen Flow Rate 3 3 Fraction of Inspired Oxygen 03/17/23 16:00 03/17/23 16:00 03/17/23 17:51 Temperature Pulse Rate 105 H 96 94 Respiratory Rate 22 H 22 H Blood Pressure Pulse Oximetry Oxygen Delivery Oxygen Flow Rate Fraction of Inspired Oxygen 03/17/23 18:00 03/17/23 18:00 03/17/23 19:24 Temperature 37.2 C Pulse Rate 94 94 91 Respiratory Rate 24 H 20 Blood Pressure 96/65 L Pulse Oximetry 95 Oxygen Delivery Oxygen Flow Rate Fraction of Inspired Oxygen 03/17/23 20:00 03/17/23 20:01 03/17/23 20:11 Temperature Pulse Rate 88 91 Respiratory Rate 19 20 Blood Pressure Pulse Oximetry 97 Oxygen Delivery Nasal Cannula Oxygen Flow Rate 2 Fraction of Inspired Oxygen 03/17/23 20:00 03/17/23 20:00 03/17/23 20:00 Temperature 37.3 C Pulse Rate 89 88 88 Respiratory Rate 20 19 Blood Pressure 111/50 L Pulse Oximetry 100 100 Oxygen Delivery Nasal Cannula Oxygen Flow Rate 3 Fraction of Inspired Oxygen 03/17/23 22:00 03/17/23 22:00 03/18/23 00:00 Temperature 37.0 C 36.9 C Pulse Rate 93 91 85 Respiratory Rate 18 17 Blood Pressure 99/51 L 106/54 L Pulse Oximetry 98 99 Oxygen Delivery Oxygen Flow Rate Fraction of Inspired Oxygen 03/18/23 00:00 03/18/23 00:00 03/18/23 02:00 Temperature Pulse Rate 85 86 82 Respiratory Rate 17 Blood Pressure Pulse Oximetry 99 Oxygen Delivery Nasal Cannula Oxygen Flow Rate 2 Fraction of Inspired Oxygen 03/18/23 02:00 03/18/23 02:21 03/18/23 02:28 Temperature 36.8 C Pulse Rate 82 83 80 Respiratory Rate 18 17 17 Blood Pressure 91/51 L Pulse Oximetry 95 Oxygen Delivery Oxygen Flow Rate Fraction of Inspired Oxygen 03/17/23 20:00 03/17/23 22:00 03/18/23 00:00 Temperature Pulse Rate 88 94 86 Respiratory Rate 22 H 20 17 Blood Pressure Pulse Oximetry Oxygen Delivery Oxygen Flow Rate Fraction of Inspired Oxygen 03/18/23 02:00 03/18/23 04:08 01
[2023-03-18] MEDS: AMINO ACIDS 5%/D15W/E-LYTES/CA 2,000 ML with MULTIVITAMINS-12 INJ VIAL 1 2.5 ML, MULTIV... 50 ML IV CONT (12:11)
[2023-03-18] MEDS: FAT EMULSIONS IV 20% 250 ML 20.8 ML IVPB (12:12)
[2023-03-18 12:44] LABS: Glucose Point of Care 112 mg/dl (65-105)
--- NOTE | 2023-03-18 13:42 | ECG_ITS ---
Measurements Intervals [place] Rate: 127 P: 68 ME: 134 QRS: 59 QRSD: 69 T: 89 QT: 293 QTc: 426 Interpretive Statements SINUS TACHYCARDIA ST-T WAVE ABNORMALITY IN ANTERIOR LEADS- CONSIDER ISCHEMIA BASELINE WANDER- V6 ABNORMAL ECG COMPARED TO ECG 03/09/2023 08:57:56 ST-T WAVE ABNORMALITY NOW PRESENT Electronically Signed On 03-18-2023 14:33:39 FLEXOGRAPHIC PRESS SET UP OPERATOR by Jimmy Maynard D.O.
--- NOTE | 2023-03-18 13:45 | PC.NURSE ---
Patienty c/o 10/10 chesy pain. Stat EKG and troponin levels ordered.
[2023-03-18] MEDS: NITROGLYCERIN SL 0.4 MG TABLET SUBLINGUAL (14:16)
[2023-03-18] MEDS: ASPIRIN 325 MG TABLET PO (14:16)
[2023-03-18] MEDS: hetaSTARCH 6%/NACL 500 ML 250 ML IV CONT (14:32)
--- NOTE | 2023-03-18 14:39 | PCSTNOTE ---
Bedside swallowing evaluation cannot be completed at this time. Per RN patient is having sudden heart problems. Will remain on schedule to be seen tomorrow.
--- NOTE | 2023-03-18 14:59 | PC.NURSE ---
Updated mother, Elsy, via telephone on patient condition and plan of care.
[2023-03-18 15:15] LABS: Troponin I 0.069 ng/mL (0.000-0.034)
[2023-03-18] MEDS: ENOXAPARIN 60 MG/0.6 ML SYRINGE 15 MG SUB-Q (15:21)
--- NOTE | 2023-03-18 15:45 | PC.NURSE ---
Dr. Rosas notified of patient status and plan of care post chest pain.
[2023-03-18 17:29] LABS: Troponin I 0.088 ng/mL (0.000-0.034)
[2023-03-18 18:26] LABS: Basophils Absolute Auto 0.1 K/mm3 (0.0-0.1); Basophils Percent Auto 0.4 % (0.2-1.2); Eosinophils Percent Auto 0.1 % (0-4.4); Hematocrit 28.4 % (37.0-47.0); Hemoglobin 8.8 g/dL (12.0-15.0); Immature Granulocyte Absolute 1.14 K/mm3 (0.00-0.031); Lymphocytes Absolute Auto 0.58 K/mm3 (0.9-3.2); Lymphocytes Percent Auto 3.6 % (18.3-44.2); Mean Corpuscular Hemoglobin 26.2 pg (26-34); Mean Corpuscular Volume 84.5 fl (80-100); Mean Platelet Volume 12.4 fl (7.4-10.4); Monocytes Absolute Auto 0.7 K/mm3 (0.1-0.6); Monocytes Percent Auto 4.3 % (2.6-8.5); Neutrophils Absolute Auto 13.8 K/mm3 (1.3-6.7); Neutrophils Percent Auto 84.6 % (45.5-73.1); Platelet Count Result 197 k/mm3 (150-375); Red Blood Count 3.36 M/mm3 (4.2-5.4); Red Cell Distribution Width 16.6 % (11.5-14.5); White Blood Count 16.3 K/mm3 (4.5-10.0)
[2023-03-18] MEDS: HEPARIN SOD/D5W 100 UNITS/ML 25,000 UNITS/250 ML BAG 7 UNITS IV CONT (18:27)
[2023-03-18 18:37] LABS: INR 1.2; Ovalocytes 1+ (NORMAL); Platelet Estimate Adequate (Adequate); Prothrombin Time 15.4 Seconds (11.1-14.7); Schistocytes None Seen (NORMAL)
[2023-03-18 18:38] LABS: Partial Thromboplastin Time 39.9 SECONDS (22.3-36.8)
[2023-03-18] MEDS: HYDROmorphone HCL INJ (*CRX) 1 MG/ML SYR IV PUSH (20:15)
[2023-03-18] MEDS: ALTEPLASE 2 MG VIAL (CATHFLO) 6 MG IV PUSH (21:43)
[2023-03-19] VITALS (27 sets, daily range): BP systolic 102–128; BP diastolic 46–61; PULSE 101–122; RESP 17–28; TEMP 36.6–37.6; O2SAT 94–100
[2023-03-19] MEDS: ALTEPLASE 2 MG VIAL (CATHFLO) 6 MG IV PUSH (00:34)
[2023-03-19] MEDS: PIPERACILLN/TAZ 3.375GM/NS50ML 3.375 GM/50 ML BAG IVPB ×4 (00:37→17:01)
[2023-03-19 00:42] LABS: Glucose Point of Care 134 mg/dl (65-105)
[2023-03-19 00:59] LABS: Partial Thromboplastin Time 99.6 SECONDS (22.3-36.8)
[2023-03-19] MEDS: diazePAM (*CRX) 2 MG TABLET 3 MG PO ×3 (01:16→16:54)
[2023-03-19] MEDS: ONDANSETRON INJ 4 MG/2 ML VIAL IV PUSH (01:17)
[2023-03-19] MEDS: LEVALBUTEROL NEB 1.25 MG/3 ML 0.63 MG INHALATION ×4 (02:32→20:48)
[2023-03-19] MEDS: IPRATROPIUM BR 0.02% INH SOLN 0.5 MG/2.5 ML VIAL INHALATION ×4 (02:32→20:48)
[2023-03-19] MEDS: CENTRAL LINE FLUSH 10 ML IV PUSH ×3 (04:51→20:36)
[2023-03-19] MEDS: LEVOTHYROXINE SODIUM 50 MCG TABLET PO (04:51)
[2023-03-19 05:03] LABS: Hematocrit 27.7 % (37.0-47.0); Hemoglobin 8.5 g/dL (12.0-15.0); Mean Corpuscular HGB Conc 30.7 g/dl (32-36); Mean Corpuscular Hemoglobin 26.3 pg (26-34); Mean Corpuscular Volume 85.8 fl (80-100); Mean Platelet Volume 11.8 fl (7.4-10.4); Platelet Count Result 201 k/mm3 (150-375); Red Blood Count 3.23 M/mm3 (4.2-5.4); White Blood Count 13.8 K/mm3 (4.5-10.0)
[2023-03-19 05:14] LABS: Alanine Aminotransferase 43 U/L (6-35); Alkaline Phosphatase 61 U/L (38-126); Anion Gap 2 mmol/L (8-16); Aspartate Amino Transferase 76 U/L (14-36); Bilirubin,Total 0.5 mg/dL (0.2-1.3); Blood Urea Nitrogen 26 mg/dL (7-17); Calcium 7.4 mg/dL (8.4-10.2); Carbon Dioxide 26 mmol/L (22-30); Chloride 109 mmol/L (98-107); Estimated CRCL calculation 50 ml/min; Estimated Glomerular Filt Rate > 60; Glucose 133 mg/dL (65-110); Magnesium 2.3 mg/dL (1.6-2.3); Phosphorus 3.7 mg/dL (2.5-4.5); Sodium 137 mmol/L (137-145)
[2023-03-19 05:20] LABS: Transferrin 114 mg/dL (206-381)
[2023-03-19 06:23] LABS: Anisocytosis 1+ (NORMAL); Band Neutrophils Percent 10 % (0-6); Giant Platelets Present; Hypochromasia 1+ (NORMAL); Large Platelets Present; Lymphocytes Absolute Manual 0.27 K/mm3 (1.1-4.5); Metamyelocytes Percent 4 %; Monocytes Absolute Manual 0.13 K/mm3 (0.1-0.90); Monocytes Percent Manual 1 % (3-9); Neutrophils Absolute Manual 12.83 K/mm3 (1.7-7.2); Neutrophils Percent Manual 83 % (46-73); Schistocytes Rare (NORMAL); Total Cells Counted 100
[2023-03-19 06:35] LABS: INR 1.2; Prothrombin Time 15.3 Seconds (11.1-14.7)
[2023-03-19 06:37] LABS: Partial Thromboplastin Time 91.4 SECONDS (22.3-36.8)
[2023-03-19] MEDS: METOPROLOL TARTRATE INJ 5 MG/5 ML VIAL 2.5 MG IV PUSH ×3 (07:50→17:02)
[2023-03-19] MEDS: lamoTRIgine 100 MG TABLET PO ×2 (07:59→16:54)
[2023-03-19] MEDS: PANTOPRAZOLE SODIUM IV 40 MG VIAL IV PUSH (07:59)
[2023-03-19] MEDS: CITALOPRAM HYDROBROMIDE 20 MG TABLET PO (07:59)
[2023-03-19] MEDS: CITALOPRAM HYDROBROMIDE 10 MG TABLET PO (07:59)
--- NOTE | 2023-03-19 08:40 | PM.IMPN ---
Progress Note: A&P Assessment and Plan (1) Elevated troponin: Code(s): R79.89 - Other specified abnormal findings of blood chemistry Status: Acute Assessment and Plan: 03/18/2023, patient complained of chest pain, EKG showed sinus tachycardia with T-wave inversions in the anterior lateral leads is a new as compared to the EKG done from 03/09 on admission. -troponins were elevated, and now have plateaued -patient was started on heparin infusion, will continue 48 hours per event coordinator marketing and sales -start at aspirin and statin -small dose of metoprolol IV 2.5 mg q.6 hours -appreciate cardiology evaluation and recommendation (2) Cardiomyopathy: Code(s): I42.9 - Cardiomyopathy, unspecified Status: Acute Assessment and Plan: 03/15/2023: Echocardiogram showed an EF of 35-40%, grade 1 diastolic dysfunction, mild MVR and mild TVR, RVSP of 36 mmHg -cardiomyopathy may be related to recent septic shock, respiratory failure, stress-induced -cannot rule out ischemic heart disease -cardiology recommended repeating a limited echo to evaluate her cardiac status and EF once she has recovered from these acute issues (3) Acute respiratory failure: Code(s): J96.00 - Acute respiratory failure, unspecified whether with hypoxia or hypercapnia Status: Acute Assessment and Plan: RESOLVED Acute respiratory failure likely related to sepsis, septic shock -03/09: patient intubated at the outside hospital ER -03/17: successfully extubate -will wean Precedex infusion as have order home diazepam -currently on room air good O2 sats -encourage incentive spirometry (4) Septic shock: Code(s): A41.9 - Sepsis, unspecified organism; R65.21 - Severe sepsis with septic shock Status: Acute Assessment and Plan: RESOLVED Patient presented with hypotension, shortness of breath, acute kidney injury, found to have Acute surgical abdomen secondary to perforated bowel s/p Exploratory laparotomy with total colectomy for Necrotic colon with perforation, OFF ALL PRESSORS -maintain MAP > 65 mmHg are SBP > 100 mmHg at all times for adequate end organ perfusion -03/10: left femoral arterial line was placed -currently on maintenance fluids LR follow-up insensible fluid loss, as she had a lot of drainage from abdominal incision and NG tube - -improved urine output with normalization of her creatinine AND LACTIC ACIDOSIS -continue Zosyn (03/09) continue per surgery -status post vancomycin -off stress dose -03/09: Blood cultures preliminary blood cultures negative x2 -03/10: Sputum cultures budding yeast with pseudohyphae -03/15: Repeat Blood cultures: Preliminary reports are no growth x2 Patient remains afebrile, WBC trending down, continue to monitor (5) ITALO (acute kidney injury): Code(s): N17.9 - Acute kidney failure, unspecified Status: Acute Assessment and Plan: RESOLVED Patient presented with acute kidney injury with a creatinine of 1.42 (baseline creatinine of 0.78 on 02/12/2023) -patient has been adequately fluid-[facility], [facility] ICU and the OR -discontinue IV fluids -good urine output, creatinine has normalized, lactic acid has normalized -will continue to monitor urine output, renal function electrolytes (6) AMS (altered mental status): Qualifiers: Altered mental status type: unspecified Qualified Code(s): R41.82 - Altered mental status, unspecified Code(s): R41.82 - Altered mental status, unspecified Status: Acute Assessment and Plan: RESOLVED Patient presented with altered mental status which most likely related to septic shock, bowel perforation, acute respiratory failure -will manage underlying causes -off Precedex infusion, patient is awake, alert, is talking and answering questions and follows simple commands appropriately (7) Bowel perforation: Code(s): K63.1 - Perforation of intestine
[2023-03-19] MEDS: BUDESONIDE RESPULE NEB 0.5 MG/2 ML AMP INHALATION ×2 (08:43→20:48)
--- NOTE | 2023-03-19 09:53 | PCSTNOTE ---
Please refer to the Bedside Swallow Evaluation in the EMR. Please note, silent aspiration cannot be ruled out at bedside.
--- NOTE | 2023-03-19 10:22 | PM.CNCAR ---
Assessment and Plan Assessment and plan (1) Elevated troponin: Code(s): R79.89 - Other specified abnormal findings of blood chemistry Status: Acute Assessment and Plan: Troponins of 0.069 with repeat at 0.088 in setting of septic shock, respiratory failure requiring intubation, acute surgical abdomen secondary to bowel perforation s/p ex lap with total colectomy for necrotic colon with perforation, acute kidney injury, repeat surgery. Does report chest pain. Does have easily reproducible chest wall pain that patient reports is similar to what she has been feeling, but given the new T-wave abnormality on EKG, reduced LVEF cannot rule out an underlying acute coronary syndrome. Recommend to continue IV Heparin drip for total of 48 hours. ASA if able to tolerate (consider rectal ASA if not able to take PO), high-intensity statin, beta sagar. Will obtain repeat EKG this morning. Will check troponin level to make sure it is not rising. At this time, given all her acute issues, recommend medical management only. (2) Cardiomyopathy: Code(s): I42.9 - Cardiomyopathy, unspecified Status: Acute Assessment and Plan: In setting of septic shock, respiratory failure requiring intubation, acute surgical abdomen secondary to bowel perforation s/p ex lap with total colectomy for necrotic colon with perforation, acute kidney injury, repeat surgery. May be due to stress-induced, however, cannot rule out underlying ischemic heart disease. Will need re-evaluation of LVEF when she has recovered from her acute issues. Consider heart failure GDMT if her hemodynamics would be able to tolerate. (3) Septic shock: Code(s): A41.9 - Sepsis, unspecified organism; R65.21 - Severe sepsis with septic shock Status: Acute Assessment and Plan: No longer on pressors (4) Acute respiratory failure: Code(s): J96.00 - Acute respiratory failure, unspecified whether with hypoxia or hypercapnia Status: Acute Assessment and Plan: Has been extubated (5) Bowel perforation: Code(s): K63.1 - Perforation of intestine (nontraumatic) Status: Acute Assessment and Plan: S/p extensive surgery. Plan Recommendations and plan discussed with Hospitalist. History of Present Illness History of Present Illness Consult date/time: 03/19/23 10:22 Requesting physician: Ale Carrizales MD Consult reason: Other (Elevated troponin) Reason For Visit: Ileus vs SBO Narrative: We are consulted for elevated troponin. This is a 62 year old female with a complicated hospital course. She has history of COPD, paranoid schizophrenia, history of MRSA infection who presented with sepsis, altered mental status. She was found to have colonic perforation. Ended up with septic shock, respiratory failure requiring intubation, acute surgical abdomen secondary to bowel perforation s/p ex lap with total colectomy for necrotic colon with perforation, acute kidney injury. She went back to the OR on 03/12 and underwent second ex lap, completion of sigmoid colectomy, segmental small bowel resection, placement of end ileostomy, and abdominal wall closure. On 03/18, patient had reported chest pain. An EKG was obtained which showed sinus tachycardia with T-wave inversions in the anterolateral leads, which are new compared to EKG from 03/09. Echocardiogram done 03/15 shows LVEF 39-40%, grade 1 diastolic dysfunction, mild MR, mild TR. Review of Systems Review of Systems: Limited ROS due to patient's mental status (quite sleepy during my examination). Does report diffuse chest pain, abdominal pain. [facility] Past Medical History Medical History Borderline personality disorder Chronic back pain COPD (chronic obstructive pulmonary disease) ERIKA (generalized anxiety disorder) History of MRSA infection HLD (hyperlipidemia) Hypothyroid IBS (irritable bowel syndrome) MDD (major depressive
--- NOTE | 2023-03-19 10:31 | ECG_ITS ---
Measurements Intervals Swisher Rate: 119 P: -3 HI: 139 QRS: -3 QRSD: 72 T: 154 QT: 297 QTc: 419 Interpretive Statements SINUS TACHYCARDIA ST-T WAVE ABNORMALITY IN ANTEROLAT/HIGH LAT LEADS- CONSIDER ISCHEMIA BASELINE ARTIFACT- I, II, III, V1 ABNORMAL ECG COMPARED TO ECG 03/18/2023 13:56:12 NO SIGNIFICANT CHANGES Electronically Signed On 03-20-2023 7:39:06 POST MANAGER by Jimmy Maynard D.O.
[2023-03-19] MEDS: FAT EMULSIONS IV 20% 250 ML 20.8 ML IVPB (11:14)
[2023-03-19] MEDS: AMINO ACIDS 5%/D15W/E-LYTES/CA 2,000 ML with MULTIVITAMINS-12 INJ VIAL 1 2.5 ML, MULTIV... 50 ML IV CONT (11:15)
--- NOTE | 2023-03-19 11:19 | PCNFU ---
Nutrition Follow-Up Complete: Inadequate energy intake related to altered GI function, mechanical ventilation as evidenced by need for trophic tube feeding Goal: Meet estimated nutrition needs when medically able- Goal being met with TPN. Continue with same goal Pt current nutrition is NPO awaiting surgery to advance diet. TPN @ 50 ml/h: 1352 kcal, 60 gg protein, 1450 ml total volume. Meeting ~ 100% EER. Nutrition recommendation: Advance diet to Puree diet when okayed by surgery. Continue with TPN until PO intake consistently 50-75% meals Last recorded weight is 55.3 kg. Bowel Motility: +1 BM 03/19/22. Ostomy. NEW drain in place Labs Reviewed: Hgb 8.5, Hcy 27.7, Alb 2.0, BUN 26 Meds Noted: Zosyn, protonix, zofran Skin: WNL Additional Notes: Cleared for puree diet by speech today, awaiting surgery input. Extubated 03/17/23. Off pressors and sedation. Monitoring plan of care, tube feeding orders, weights, labs Following daily in ICU rounds, reassess every Saturday and Saturday per policy
[2023-03-19 12:01] LABS: Troponin I 0.067 ng/mL (0.000-0.034)
[2023-03-19 12:03] LABS: Glucose Point of Care 119 mg/dl (65-105)
--- NOTE | 2023-03-19 13:01 | WPDINTPN ---
Progress Note: A&P Assessment and Plan (1) Elevated troponin: Code(s): R79.89 - Other specified abnormal findings of blood chemistry Status: Acute Assessment and Plan: 03/18/2023, patient complained of chest pain, EKG showed sinus tachycardia with T-wave inversions in the anterior lateral leads is a new as compared to the EKG done from 03/09 on admission. -troponins were elevated, and now have plateaued -patient was started on heparin infusion, will continue 48 hours per program aide -start at aspirin and statin -small dose of metoprolol IV 2.5 mg q.6 hours -appreciate cardiology evaluation and recommendation (2) Cardiomyopathy: Code(s): I42.9 - Cardiomyopathy, unspecified Status: Acute Assessment and Plan: 03/15/2023: Echocardiogram showed an EF of 35-40%, grade 1 diastolic dysfunction, mild MVR and mild TVR, RVSP of 36 mmHg -cardiomyopathy may be related to recent septic shock, respiratory failure, stress-induced -cannot rule out ischemic heart disease -cardiology recommended repeating a limited echo to evaluate her cardiac status and EF once she has recovered from these acute issues (3) Acute respiratory failure: Code(s): J96.00 - Acute respiratory failure, unspecified whether with hypoxia or hypercapnia Status: Acute Assessment and Plan: RESOLVED Acute respiratory failure likely related to sepsis, septic shock -03/09: patient intubated at the outside hospital ER -03/17: successfully extubate -will wean Precedex infusion as have order home diazepam -currently on room air good O2 sats -encourage incentive spirometry (4) Septic shock: Code(s): A41.9 - Sepsis, unspecified organism; R65.21 - Severe sepsis with septic shock Status: Acute Assessment and Plan: RESOLVED Patient presented with hypotension, shortness of breath, acute kidney injury, found to have Acute surgical abdomen secondary to perforated bowel s/p Exploratory laparotomy with total colectomy for Necrotic colon with perforation, OFF ALL PRESSORS -maintain MAP > 65 mmHg are SBP > 100 mmHg at all times for adequate end organ perfusion -03/10: left femoral arterial line was placed -currently on maintenance fluids LR follow-up insensible fluid loss, as she had a lot of drainage from abdominal incision and NG tube - -improved urine output with normalization of her creatinine AND LACTIC ACIDOSIS -continue Zosyn (03/09) continue per surgery -status post vancomycin -off stress dose -03/09: Blood cultures preliminary blood cultures negative x2 -03/10: Sputum cultures budding yeast with pseudohyphae -03/15: Repeat Blood cultures: Preliminary reports are no growth x2 Patient remains afebrile, WBC trending down, continue to monitor (5) ITALO (acute kidney injury): Code(s): N17.9 - Acute kidney failure, unspecified Status: Acute Assessment and Plan: RESOLVED Patient presented with acute kidney injury with a creatinine of 1.42 (baseline creatinine of 0.78 on 02/12/2023) -patient has been adequately fluid-resuscitated at the outside hospital ER, [facility] ICU and the OR -discontinue IV fluids -good urine output, creatinine has normalized, lactic acid has normalized -will continue to monitor urine output, renal function electrolytes (6) AMS (altered mental status): Qualifiers: Altered mental status type: unspecified Qualified Code(s): R41.82 - Altered mental status, unspecified Code(s): R41.82 - Altered mental status, unspecified Status: Acute Assessment and Plan: RESOLVED Patient presented with altered mental status which most likely related to septic shock, bowel perforation, acute respiratory failure -will manage underlying causes -off Precedex infusion, patient is awake, alert, is talking and answering questions and follows simple commands appropriately (7) Bowel perforation: Code(s): K63.1 - Perforation of intestine (nontraumatic) S
--- NOTE | 2023-03-19 13:27 | PM.PNGS ---
Progress Note: A&P Assessment and Plan (1) Bowel perforation: Code(s): K63.1 - Perforation of intestine (nontraumatic) Status: Acute Assessment and Plan: Improving. Passed swallow test. Will start clear liquids and start weaning TPN as she tolerating oral intake. Continue IV antibiotics. Plan I have discussed the patient's case and plan of care with Dr. Mathur. Subjective Subjective Date/Time Seen: 03/19/23 11:27 Patient reports: afebrile Interval history: 03/09/23 - Exploratory laparotomy with total colectomy by Dr. Kim due to findings of a totally necrotic colon 03/12/23 - second look exploratory laparotomy, completion sigmoid colectomy, segmental small bowel resection, placement of end ileostomy, and abdominal wall closure by Dr. Kim Chart reviewed since last seen. Patient has been extubated on 03/17 and is alert and oriented to self and place. She is currently in the ICU, no vasopressors. She started having chest pain yesterday and had mildly elevated troponin. Cardiology has been consulted and she was started on a heparin infusion. She denies any abdominal pain at the time of my exam. Her ostomy output has started increasing. She had nausea and vomiting over the weekend and has had her NG tube to suction. She is on TPN. She passed a swallow test this morning. Review of Systems Review of Systems: ROS unobtainable: Yes other (limited due to confusion) Exam Const: General: comfortable and no acute distress Orientation/consciousness: oriented to person, No oriented to time and confusion Cardio: Rate: tachycardic Rhythm: regular rhythm GI: Inspection: other (NEW drain with serosanguineous drainage) GI Palp: Yes Soft to palpation and No Hernia present Auscultation: Hypoactive bowel sounds present Other: Abdomen is mildly distended but soft. Midline incision is dry with vineet intact and a small area of ischemic skin near the umbilicus that is dry and at the bottom of the incision. No erythema. Ileostomy with dark brown output and stoma viable. Objective Data Vital Signs Vital Signs: Vital Signs - 24 hr 03/18/23 14:03 03/18/23 14:00 03/18/23 14:22 Temperature 99.6 F Pulse Rate 127 H 126 H Respiratory Rate 24 H 27 H Blood Pressure 107/64 Pulse Oximetry 94 93 Oxygen Delivery Nasal Cannula Oxygen Flow Rate 2 Fraction of Inspired Oxygen 03/18/23 14:50 03/18/23 14:52 03/18/23 14:00 Temperature Pulse Rate 128 H 126 H Respiratory Rate 22 H Blood Pressure Pulse Oximetry 100 Oxygen Delivery Nasal Cannula Oxygen Flow Rate 2 Fraction of Inspired Oxygen 03/18/23 15:07 03/18/23 16:00 03/18/23 16:34 Temperature Pulse Rate 115 H 118 H 113 H Respiratory Rate 20 26 H 24 H Blood Pressure Pulse Oximetry Oxygen Delivery Oxygen Flow Rate Fraction of Inspired Oxygen 03/18/23 16:00 03/18/23 16:00 03/18/23 16:00 Temperature 99.3 F Pulse Rate 118 H 120 H Respiratory Rate 26 H Blood Pressure 101/50 L Pulse Oximetry 94 94 Oxygen Delivery Nasal Cannula Oxygen Flow Rate 2 Fraction of Inspired Oxygen 03/18/23 18:00 03/18/23 20:41 03/18/23 20:41 Temperature 99.2 F Pulse Rate 122 H 125 H Respiratory Rate 28 H 22 H Blood Pressure 99/49 L Pulse Oximetry 98 95 Oxygen Delivery Nasal Cannula Oxygen Flow Rate 2 Fraction of Inspired Oxygen 03/18/23 21:00 03/18/23 20:00 03/18/23 20:00 Temperature Pulse Rate 130 H 118 H Respiratory Rate 24 H Blood Pressure Pulse Oximetry 93 Oxygen Delivery Nasal Cannula Oxygen Flow Rate 2 Fraction of Inspired Oxygen 03/18/23 20:00 03/18/23 22:00 03/18/23 22:00 Temperature 99.4 F 99.2 F Pulse Rate 118 H 126 H 126 H Respiratory Rate 30 H 27 H Blood Pressure 112/56 L 96/44 L Pulse Oximetry 92 95 Oxygen Delivery Oxygen Flow Rate Fraction of Inspired Oxygen 03/19/23 00:00 03/19/23 00:00 03/19/23 00:00 Temperature 98.9 F Pu
[2023-03-19] MEDS: ASPIRIN 81 MG CHEWABLE TABLET PO (13:53)
[2023-03-19] MEDS: ATORVASTATIN 40 MG TABLET PO (13:53)
[2023-03-19] MEDS: HYDROmorphone HCL INJ (*CRX) 1 MG/ML SYR IV PUSH (16:55)
[2023-03-19 17:11] LABS: Glucose Point of Care 122 mg/dl (65-105)
--- NOTE | 2023-03-19 17:39 | PC.NURSE ---
This patient, Jeanne Fragoso, was transferred to [facility] on 03/19/23 at 1730. Personal belongings sent with patient. Report given to Sage . Appropriate documentation sent with patient.
[2023-03-19 18:30] LABS: Glucose Point of Care 128 mg/dl (65-105)
--- NOTE | 2023-03-19 18:45 | PC.NURSE ---
Pt transferred from ICU. Report received at bedside. Pt is stable and resting comfortably. No signs or symptoms of distress noted.
[2023-03-19] MEDS: GABAPENTIN 300 MG CAPSULE PO (20:36)
[2023-03-19 23:56] LABS: Glucose Point of Care 93 mg/dl (65-105)
[2023-03-20] VITALS (26 sets, daily range): BP systolic 122–146; BP diastolic 54–69; PULSE 111–126; RESP 16–24; TEMP 36.9–37.5; O2SAT 95–100
[2023-03-20] MEDS: METOPROLOL TARTRATE INJ 5 MG/5 ML VIAL 2.5 MG IV PUSH ×2 (00:22→05:41)
[2023-03-20] MEDS: LEVALBUTEROL NEB 1.25 MG/3 ML 0.63 MG INHALATION ×4 (01:58→22:44)
[2023-03-20] MEDS: IPRATROPIUM BR 0.02% INH SOLN 0.5 MG/2.5 ML VIAL INHALATION ×4 (01:58→22:43)
[2023-03-20] MEDS: diazePAM (*CRX) 2 MG TABLET 3 MG PO ×3 (03:04→18:22)
[2023-03-20] MEDS: HEPARIN SOD/D5W 100 UNITS/ML 25,000 UNITS/250 ML BAG 7 UNITS IV CONT (03:05)
[2023-03-20 03:42] LABS: Hematocrit 26.7 % (37.0-47.0); Hemoglobin 8.2 g/dL (12.0-15.0); Mean Corpuscular HGB Conc 30.7 g/dl (32-36); Mean Corpuscular Hemoglobin 26.6 pg (26-34); Mean Corpuscular Volume 86.7 fl (80-100); Platelet Count Result 233 k/mm3 (150-375); Red Blood Count 3.08 M/mm3 (4.2-5.4); Red Cell Distribution Width 17.1 % (11.5-14.5); White Blood Count 14.5 K/mm3 (4.5-10.0)
[2023-03-20 03:53] LABS: INR 1.2; Prothrombin Time 15.5 Seconds (11.1-14.7)
[2023-03-20 03:55] LABS: Partial Thromboplastin Time 89.7 SECONDS (22.3-36.8)
[2023-03-20 04:15] LABS: Band Neutrophils Percent 2 % (0-6); Eosinophils Absolute Manual 0.14 K/mm3 (0.02-0.5); Eosinophils Percent Manual 1 % (0-4); Lymphocytes Absolute Manual 0.43 K/mm3 (1.1-4.5); Lymphocytes Percent Manual 3 % (18-44); Monocytes Absolute Manual 0.72 K/mm3 (0.1-0.90); Monocytes Percent Manual 5 % (3-9); Total Cells Counted 100
[2023-03-20 04:17] LABS: Hypochromasia 1+ (NORMAL); Large Platelets Present; Neutrophils Absolute Manual 13.19 K/mm3 (1.7-7.2); Neutrophils Percent Manual 89 % (46-73); Ovalocytes 1+ (NORMAL); Platelet Estimate Adequate (Adequate); Schistocytes None Seen (NORMAL)
[2023-03-20] MEDS: LEVOTHYROXINE SODIUM 50 MCG TABLET PO (05:40)
[2023-03-20] MEDS: CENTRAL LINE FLUSH 10 ML IV PUSH ×3 (05:41→22:16)
[2023-03-20 05:54] LABS: Alanine Aminotransferase 43 U/L (6-35); Albumin Level 2.3 g/dL (3.5-5.1); Alkaline Phosphatase 70 U/L (38-126); Anion Gap 4 mmol/L (8-16); Aspartate Amino Transferase 82 U/L (14-36); Bilirubin,Total 0.5 mg/dL (0.2-1.3); Blood Urea Nitrogen 25 mg/dL (7-17); Calcium 7.8 mg/dL (8.4-10.2); Carbon Dioxide 25 mmol/L (22-30); Chloride 107 mmol/L (98-107); Estimated CRCL calculation 50 ml/min; Estimated Glomerular Filt Rate > 60; Glucose 120 mg/dL (65-110); Magnesium 2.1 mg/dL (1.6-2.3); Phosphorus 3.1 mg/dL (2.5-4.5); Sodium 136 mmol/L (137-145); Triglycerides 94 mg/dL (<150)
[2023-03-20 06:01] LABS: Transferrin 128 mg/dL (206-381)
[2023-03-20] MEDS: BUDESONIDE RESPULE NEB 0.5 MG/2 ML AMP INHALATION ×2 (07:30→22:44)
[2023-03-20] MEDS: ATORVASTATIN 40 MG TABLET PO (08:55)
[2023-03-20] MEDS: CITALOPRAM HYDROBROMIDE 20 MG TABLET PO (08:55)
[2023-03-20] MEDS: ASPIRIN 81 MG CHEWABLE TABLET PO (08:55)
[2023-03-20] MEDS: CITALOPRAM HYDROBROMIDE 10 MG TABLET PO (08:56)
[2023-03-20] MEDS: PANTOPRAZOLE SODIUM IV 40 MG VIAL IV PUSH (08:56)
--- NOTE | 2023-03-20 10:31 | PCWOUND ---
WOCN NOTE Spoke with patient to start ostomy teaching. patient states she is not able to think about it at this time. will check again tomorrow.
--- NOTE | 2023-03-20 11:20 | PM.PNCARD ---
Progress Note: A&P Assessment and Plan (1) Elevated troponin: Code(s): R79.89 - Other specified abnormal findings of blood chemistry Status: Acute Assessment and Plan: Troponins of 0.069 with repeat at 0.088 in setting of septic shock, respiratory failure requiring intubation, acute surgical abdomen secondary to bowel perforation s/p ex lap with total colectomy for necrotic colon with perforation, acute kidney injury, repeat extensive surgery. Did report chest pain on 03/18. Does have easily reproducible chest wall pain that patient reports is similar to what she has been feeling, but given the new T-wave abnormality on EKG, reduced LVEF cannot rule out an underlying acute coronary syndrome. Repeat EKG 03/19 is stable compared to 03/18 EKG. Third troponin is stable at 0.067, which is reassuring that the troponins are flat. Recommend to continue IV Heparin drip for total of 48 hours (to stop 03/20 at 18:30; stop time entered on the order). Continue ASA, high-intensity statin, beta sagar. At this time, given all her acute issues, recommend medical management only. (2) Cardiomyopathy: Code(s): I42.9 - Cardiomyopathy, unspecified Status: Acute Assessment and Plan: In setting of septic shock, respiratory failure requiring intubation, acute surgical abdomen secondary to bowel perforation s/p ex lap with total colectomy for necrotic colon with perforation, acute kidney injury, repeat surgery. May be due to stress-induced, however, cannot rule out underlying ischemic heart disease. Will need re-evaluation of LVEF when she has recovered from her acute issues. Will stop her IV Metoprolol and start PO Metoprolol tartrate (will need to be converted to succinate prior to discharge). Consider additional heart failure GDMT if her hemodynamics would be able to tolerate. (3) Septic shock: Code(s): A41.9 - Sepsis, unspecified organism; R65.21 - Severe sepsis with septic shock Status: Acute Assessment and Plan: No longer on pressors (4) Acute respiratory failure: Code(s): J96.00 - Acute respiratory failure, unspecified whether with hypoxia or hypercapnia Status: Acute Assessment and Plan: Has been extubated (5) Bowel perforation: Code(s): K63.1 - Perforation of intestine (nontraumatic) Status: Acute Assessment and Plan: S/p extensive surgery. Subjective Date/time seen: 03/20/23 11:20 Interval history: Reason for visit: Elevated troponin, chest pain, cardiomyopathy HPI: We are consulted for elevated troponin. This is a 62 year old female with a complicated hospital course. She has history of COPD, paranoid schizophrenia, history of MRSA infection who presented with sepsis, altered mental status. She was found to have colonic perforation. Ended up with septic shock, respiratory failure requiring intubation, acute surgical abdomen secondary to bowel perforation s/p ex lap with total colectomy for necrotic colon with perforation, acute kidney injury. She went back to the OR on 03/12 and underwent second ex lap, completion of sigmoid colectomy, segmental small bowel resection, placement of end ileostomy, and abdominal wall closure. On 03/18, patient had reported chest pain. An EKG was obtained which showed sinus tachycardia with T-wave inversions in the anterolateral leads, which are new compared to EKG from 03/09. Echocardiogram done 03/15 shows LVEF 39-40%, grade 1 diastolic dysfunction, mild MR, mild TR. Date of service 03/20: Has been moved from the ICU to IMU. She states she is feeling better this morning. Denies any chest pain, shortness of breath. Hoping she can sit up in a chair and get NG tube out soon. Review of Systems Review of Systems: All systems reviewed & are unremarkable except as noted in HPI and below (HPI) Exam Const: General: no acute distress Other: Appears much older than stated age. HENMT: Mouth: Yes dry mucous membranes Eyes: Sclera: sclerae nor
[2023-03-20] MEDS: lamoTRIgine 100 MG TABLET PO ×2 (11:31→18:22)
[2023-03-20] MEDS: FAT EMULSIONS IV 20% 250 ML 20.8 ML IVPB (11:32)
--- NOTE | 2023-03-20 12:43 | PM.PNGS ---
Progress Note: A&P Assessment and Plan (1) Bowel perforation: Code(s): K63.1 - Perforation of intestine (nontraumatic) Status: Acute Assessment and Plan: Continues to slowly improve. Remove NG tube. Tolerating clear liquids and swallowing without any difficulties. Will advance to full liquids, add Ensure compact supplements, and stop the TPN if tolerating her diet. WBC still 13-14 consistently for the past few days. IV Zosyn was stopped yesterday, will restart IV Zosyn and repeat labs again tomorrow. Plan I have discussed the patient's case and plan of care with Dr. Mathur. Subjective Subjective Date/Time Seen: 03/20/23 12:43 Patient reports: no new complaints, feels better, tolerating liquids well and afebrile Interval history: Patient feeling well today. She is hungry and wants to try and advance her diet. Denies nausea or vomiting. No abdominal pain at this time. Ileostomy output of 1 liter in the last 24 hours and 900 cc from shift stacker last night. No other complaints at this time. NEW drain with minimal out, 10 cc total over the past 24 hours and 40 cc from 03/18. She is afebrile and WBC count has been between 13-14 (other than 16.3 on 03/18) since 03/15. IV Zosyn was stopped yesterday on day 11. Exam Const: General: comfortable and no acute distress Orientation/consciousness: confusion GI: Inspection: non-distended and other (NEW drain with scant sanguineous drainage) Other: Abdomen is nondistended and soft. Midline incision is dry with vineet intact and a small area of dry ischemic skin near the umbilicus and a smaller area at the bottom of the incision. No erythema. Scant dry bloody drainage at the top of the incision. Ileostomy with dark brown output and stoma viable. Objective Data Vital Signs Vital Signs: Vital Signs - 24 hr 03/19/23 13:57 03/19/23 14:16 03/19/23 14:00 Temperature Pulse Rate 109 H 115 H 120 H Respiratory Rate 22 H 22 H Blood Pressure Pulse Oximetry Oxygen Delivery Oxygen Flow Rate Fraction of Inspired Oxygen 03/19/23 14:00 03/19/23 16:00 03/19/23 16:00 Temperature 99 F 99.4 F Pulse Rate 120 H 118 H 118 H Respiratory Rate 17 26 H Blood Pressure 128/61 121/53 L Pulse Oximetry 96 97 Oxygen Delivery Oxygen Flow Rate Fraction of Inspired Oxygen 03/19/23 16:00 03/19/23 17:02 03/19/23 17:47 Temperature 97.9 F Pulse Rate 118 H 118 H 115 H Respiratory Rate 26 H 18 Blood Pressure 102/49 L Pulse Oximetry 97 100 Oxygen Delivery Nasal Cannula Oxygen Flow Rate 2 Fraction of Inspired Oxygen 03/19/23 18:00 03/19/23 17:47 03/19/23 19:55 Temperature 98.6 F Pulse Rate 116 H 116 H Respiratory Rate 18 Blood Pressure 118/52 L Pulse Oximetry 100 100 Oxygen Delivery Nasal Cannula Oxygen Flow Rate 2 Fraction of Inspired Oxygen 03/19/23 20:50 03/19/23 20:00 03/19/23 20:00 Temperature Pulse Rate 120 H 120 H 120 H Respiratory Rate 22 H 18 Blood Pressure Pulse Oximetry 100 Oxygen Delivery Nasal Cannula Oxygen Flow Rate 2 Fraction of Inspired Oxygen 28 03/19/23 20:58 03/19/23 21:39 03/20/23 00:00 Temperature 98.4 F Pulse Rate 120 H 125 H Respiratory Rate 20 Blood Pressure 134/68 Pulse Oximetry 100 95 Oxygen Delivery Nasal Cannula Oxygen Flow Rate 2 Fraction of Inspired Oxygen 28 03/20/23 00:22 03/20/23 00:00 03/20/23 00:00 Temperature Pulse Rate 120 H 114 H 114 H Respiratory Rate 20 Blood Pressure Pulse Oximetry 95 Oxygen Delivery Nasal Cannula Oxygen Flow Rate 2 Fraction of Inspired Oxygen 28 03/20/23 02:01 03/20/23 02:07 03/20/23 02:00 Temperature Pulse Rate 121 H 120 H 124 H Respiratory Rate 20 20 Blood Pressure Pulse Oximetry Oxygen Delivery Oxygen Flow Rate Fraction of Inspired Oxygen 03/20/23 04:00 03/20/23 04:00 03/20/23 04:00 Temperature 98.5 F Pulse Rate 121 H 124 H 124 H Respiratory Rate 20 20
[2023-03-20 12:55] LABS: Glucose Point of Care 120 mg/dl (65-105)
[2023-03-20] MEDS: PIPERACILLN/TAZ 3.375GM/NS50ML 3.375 GM/50 ML BAG IVPB ×2 (14:15→18:22)
--- NOTE | 2023-03-20 15:44 | PM.IMPN ---
Progress Note: A&P Assessment and Plan (1) Bowel perforation: Code(s): K63.1 - Perforation of intestine (nontraumatic) Status: Acute Assessment and Plan: 03/09: Initial CT scan of the abdomen/pelvis at the outside hospital ER did not show any perforation or free air does dilated and thickened colon suggestive of enterocolitis 03/09: Repeat CT scan abdomen pelvis at [facility] ICU was performed because of abdominal distension and rigid abdomen which showed interval development of free air in the abdomen with likely perforation somewhere near the cecum. Patient underwent ex lap with total colectomy: According to the operative notes the whole colon from the terminal ileum all the way down to the mid sigmoid colon was totally necrotic. Patient had total colectomy. On the OR table patient was very unstable with significantly low blood pressure, and tachycardia, the fascia was left approximated abdominal was closed with vineet in the skin and was transferred to the ICU Discussed with surgeon, patient will be taken to the OR for closure of her abdomen today, 03/12/2023. Patient was given 1 unit of FFP and vitamin K on 03/11. INR this morning is 1.5 03/12: Status post ?Second look exploratory laparotomy, completion sigmoid colectomy, segmental small bowel resection, placement of end ileostomy, and abdominal wall closure. Surgery following closely, continue TPN Ostomy has better output NG tube clamped and patient has tolerated this well. Plan for NG tube removal. Speech therapy saw the patient yesterday and recommended pureed level 4 diet with thin liquids. Advance diet per General surgery. (2) Elevated troponin: Code(s): R79.89 - Other specified abnormal findings of blood chemistry Status: Acute Assessment and Plan: 03/18/2023, patient complained of chest pain, EKG showed sinus tachycardia with T-wave inversions in the anterior lateral leads is a new as compared to the EKG done from 03/09 on admission. -troponins were elevated, and now have plateaued -patient was started on heparin infusion, will continue 48 hours per wire wheeler -started aspirin and statin -small dose of metoprolol IV 2.5 mg q.6 hours but now changed to oral -appreciate cardiology evaluation and recommendation (3) Cardiomyopathy: Code(s): I42.9 - Cardiomyopathy, unspecified Status: Acute Assessment and Plan: 03/15/2023: Echocardiogram showed an EF of 35-40%, grade 1 diastolic dysfunction, mild MVR and mild TVR, RVSP of 36 mmHg -cardiomyopathy may be related to recent septic shock, respiratory failure, stress-induced -cannot rule out ischemic heart disease -cardiology recommended repeating a limited echo to evaluate her cardiac status and EF once she has recovered from these acute issues (4) Acute respiratory failure: Code(s): J96.00 - Acute respiratory failure, unspecified whether with hypoxia or hypercapnia Status: Acute Assessment and Plan: Acute respiratory failure likely related to sepsis, septic shock -03/09: patient intubated at the outside hospital ER -03/17: successfully extubate -weaned off Precedex infusion and home diazepam resumed -currently on 2L with good O2 sats -encourage incentive spirometry Wean oxygen as tolerated (5) Septic shock: Code(s): A41.9 - Sepsis, unspecified organism; R65.21 - Severe sepsis with septic shock Status: Acute Assessment and Plan: Patient presented with hypotension, shortness of breath, acute kidney injury, found to have Acute surgical abdomen secondary to perforated bowel s/p Exploratory laparotomy with total colectomy for Necrotic colon with perforation, OFF ALL PRESSORS -maintain MAP > 65 mmHg are SBP > 100 mmHg at all times for adequate end organ perfusion -03/10: left femoral arterial line was placed -currently on maintenance fluids LR follow-up insensible fluid loss, as she had a lot of drainage from abdominal incisi
[2023-03-20 18:16] LABS: Glucose Point of Care 146 mg/dl (65-105)
[2023-03-20] MEDS: GABAPENTIN 300 MG CAPSULE PO (22:16)
[2023-03-20] MEDS: METOPROLOL TARTRATE 25 MG TABLET PO (22:16)
[2023-03-21] VITALS (22 sets, daily range): BP systolic 117–138; BP diastolic 49–64; PULSE 100–129; RESP 16–28; TEMP 36.6–37.2; O2SAT 93–100
[2023-03-21 00:21] LABS: Glucose Point of Care 139 mg/dl (65-105)
[2023-03-21] MEDS: PIPERACILLN/TAZ 3.375GM/NS50ML 3.375 GM/50 ML BAG IVPB ×4 (01:36→16:12)
--- NOTE | 2023-03-21 03:43 | PCRCNOTE ---
Patient asked that she not be awakened for her 0200 updraft treatment. Treatment to resume @ 0800.
[2023-03-21] MEDS: CENTRAL LINE FLUSH 10 ML IV PUSH ×3 (06:00→23:00)
[2023-03-21] MEDS: LEVOTHYROXINE SODIUM 50 MCG TABLET PO (06:00)
[2023-03-21 06:26] LABS: Basophils Percent Auto 0.1 % (0.2-1.2); Eosinophils Percent Auto 0.3 % (0-4.4); Hematocrit 25.7 % (37.0-47.0); Immature Granulocyte Absolute 0.21 K/mm3 (0.00-0.031); Immature Granulocyte Percent A 1.8 % (0-0.5); Lymphocytes Absolute Auto 0.66 K/mm3 (0.9-3.2); Lymphocytes Percent Auto 5.7 % (18.3-44.2); Mean Corpuscular HGB Conc 31.1 g/dl (32-36); Mean Corpuscular Hemoglobin 26.4 pg (26-34); Mean Corpuscular Volume 84.8 fl (80-100); Mean Platelet Volume 11.9 fl (7.4-10.4); Monocytes Absolute Auto 1.3 K/mm3 (0.1-0.6); Monocytes Percent Auto 10.9 % (2.6-8.5); Neutrophils Absolute Auto 9.4 K/mm3 (1.3-6.7); Neutrophils Percent Auto 81.2 % (45.5-73.1); Platelet Count Result 273 k/mm3 (150-375); Red Blood Count 3.03 M/mm3 (4.2-5.4); Red Cell Distribution Width 16.3 % (11.5-14.5); White Blood Count 11.6 K/mm3 (4.5-10.0)
[2023-03-21 06:35] LABS: INR 1.1; Prothrombin Time 15.1 Seconds (11.1-14.7)
[2023-03-21 06:36] LABS: Partial Thromboplastin Time 30.7 SECONDS (22.3-36.8)
[2023-03-21 06:38] LABS: Anion Gap 3 mmol/L (8-16); Blood Urea Nitrogen 25 mg/dL (7-17); Calcium 7.9 mg/dL (8.4-10.2); Carbon Dioxide 28 mmol/L (22-30); Chloride 106 mmol/L (98-107); Estimated CRCL calculation 56 ml/min; Estimated Glomerular Filt Rate > 60; Glucose 119 mg/dL (65-110); Potassium 4.1 mmol/L (3.4-5.0); Sodium 137 mmol/L (137-145)
[2023-03-21] MEDS: BUDESONIDE RESPULE NEB 0.5 MG/2 ML AMP INHALATION ×2 (08:21→21:34)
[2023-03-21] MEDS: LEVALBUTEROL NEB 1.25 MG/3 ML 0.63 MG INHALATION ×3 (08:21→21:35)
[2023-03-21] MEDS: IPRATROPIUM BR 0.02% INH SOLN 0.5 MG/2.5 ML VIAL INHALATION ×3 (08:21→21:34)
[2023-03-21] MEDS: lamoTRIgine 100 MG TABLET PO ×2 (09:35→16:11)
[2023-03-21] MEDS: ASPIRIN 81 MG CHEWABLE TABLET PO (09:35)
[2023-03-21] MEDS: diazePAM (*CRX) 2 MG TABLET 3 MG PO ×2 (09:36→16:11)
[2023-03-21] MEDS: ATORVASTATIN 40 MG TABLET PO (09:37)
[2023-03-21] MEDS: METOPROLOL TARTRATE 25 MG TABLET PO (09:37)
[2023-03-21] MEDS: PANTOPRAZOLE SODIUM IV 40 MG VIAL IV PUSH (09:38)
[2023-03-21] MEDS: CITALOPRAM HYDROBROMIDE 10 MG TABLET PO (10:42)
[2023-03-21] MEDS: CITALOPRAM HYDROBROMIDE 20 MG TABLET PO (10:42)
--- NOTE | 2023-03-21 11:31 | PM.PNGS ---
Progress Note: A&P Assessment and Plan (1) Bowel perforation: Code(s): K63.1 - Perforation of intestine (nontraumatic) Status: Acute Assessment and Plan: Continues to slowly improve. Will advance to a regular diet, continue supplements, albumin still low at 2.3 yesterday. Continue IV Zosyn. WBC count down to 11.6 today. Once femoral central line is removed, then we would recommend starting PT/OT. Plan I have discussed the patient's case and plan of care with Dr. Kim. Subjective Subjective Date/Time Seen: 03/21/23 11:31 Patient reports: afebrile Interval history: 03/09/23 - Exploratory laparotomy with total colectomy by Dr. Kim due to findings of a totally necrotic colon 03/12/23 - second look exploratory laparotomy, completion sigmoid colectomy, segmental small bowel resection, placement of end ileostomy, and abdominal wall closure by Dr. Kim Patient in IMU and awake and oriented. She answers questions appropriately. She denies abdominal pain. She is tolerating full liquids well and taking her Ensure compact supplements. NG tube was removed. Per nursing, they are going to discuss possibly removing her femoral central line with the Hospitalist. TPN is off. No new complaints. Ostomy functioning well. Review of Systems Review of Systems: All systems reviewed & are unremarkable except as noted in HPI and below Exam Const: General: comfortable and no acute distress Nutritional Appearance: thin GI: Inspection: non-distended GI Palp: Yes Soft to palpation and Yes Tenderness to palpation present (GI) (mild incisional tenderness) Auscultation: normal bowel sounds Other: Abdomen is nondistended and soft. Midline incision is dry with vineet intact and a small area of dry ischemic skin near the umbilicus and a smaller area at the bottom of the incision. No erythema. Scant dry bloody drainage at the top of the incision. Ileostomy with dark brown output and stoma viable. NEW drain with scant sanguineous drainage. Urinary Catheter: Urinary Catheter: patent and draining Objective Data Vital Signs Vital Signs: Vital Signs - 24 hr 03/20/23 11:51 03/20/23 12:00 03/20/23 12:00 Temperature 99.1 F Pulse Rate 118 H 115 H 115 H Respiratory Rate 18 18 Blood Pressure 146/69 H Pulse Oximetry 100 100 Oxygen Delivery Nasal Cannula Oxygen Flow Rate 2 Fraction of Inspired Oxygen 28 /03/24 13:15 03/20/23 13:25 03/20/23 16:00 Temperature 98.4 F Pulse Rate 116 H 117 H 118 H Respiratory Rate 20 20 16 Blood Pressure 145/62 H Pulse Oximetry 100 Oxygen Delivery Oxygen Flow Rate Fraction of Inspired Oxygen 03/20/23 14:00 03/20/23 16:00 03/20/23 18:00 Temperature Pulse Rate 113 H 125 H 124 H Respiratory Rate Blood Pressure Pulse Oximetry Oxygen Delivery Oxygen Flow Rate Fraction of Inspired Oxygen 03/20/23 16:00 03/20/23 20:00 03/20/23 22:16 Temperature 98.8 F Pulse Rate 124 H 120 H 121 H Respiratory Rate 16 18 Blood Pressure 139/67 Pulse Oximetry 100 98 Oxygen Delivery Nasal Cannula Oxygen Flow Rate 2 Fraction of Inspired Oxygen 03/20/23 22:44 03/20/23 23:02 03/20/23 23:03 Temperature Pulse Rate 126 H 118 H 119 H Respiratory Rate 20 20 Blood Pressure Pulse Oximetry 97 Oxygen Delivery Nasal Cannula Oxygen Flow Rate 2 Fraction of Inspired Oxygen 03/21/23 00:00 03/20/23 20:00 03/21/23 00:00 Temperature 99 F Pulse Rate 124 H 124 H 124 H Respiratory Rate 20 20 20 Blood Pressure 138/59 L Pulse Oximetry 98 98 98 Oxygen Delivery Nasal Cannula Nasal Cannula Oxygen Flow Rate 2 2 Fraction of Inspired Oxygen 28 03/21/23 04:00 03/21/23 04:00 03/20/23 20:00 Temperature 98.8 F Pulse Rate 123 H 123 H 118 H Respiratory Rate 18 18 Blood Pressure 131/64 Pulse Oximetry 99 99 Oxygen Delivery Nasal Cannula Oxygen Flow Rate 2 Fraction of Inspired Oxygen 03/20/23 22:00 03/21/23 00:0
[2023-03-21 11:59] LABS: Glucose Point of Care 116 mg/dl (65-105)
--- NOTE | 2023-03-21 14:52 | PM.IMPN ---
Progress Note: A&P Assessment and Plan (1) Bowel perforation: Code(s): K63.1 - Perforation of intestine (nontraumatic) Status: Acute Assessment and Plan: 03/09: Initial CT scan of the abdomen/pelvis at the outside hospital ER did not show any perforation or free air does dilated and thickened colon suggestive of enterocolitis 03/09: Repeat CT scan abdomen pelvis at [facility] ICU was performed because of abdominal distension and rigid abdomen which showed interval development of free air in the abdomen with likely perforation somewhere near the cecum. Patient underwent ex lap with total colectomy: According to the operative notes the whole colon from the terminal ileum all the way down to the mid sigmoid colon was totally necrotic. Patient had total colectomy. On the OR table patient was very unstable with significantly low blood pressure, and tachycardia, the fascia was left approximated abdominal was closed with vineet in the skin and was transferred to the ICU Discussed with surgeon, patient will be taken to the OR for closure of her abdomen today, 03/12/2023. Patient was given 1 unit of FFP and vitamin K on 03/11. INR this morning is 1.5 03/12: Status post ?Second look exploratory laparotomy, completion sigmoid colectomy, segmental small bowel resection, placement of end ileostomy, and abdominal wall closure. Surgery following closely Ostomy has better output NG tube clamped and patient has tolerated this well. NG tube removed 03/20 Speech therapy saw the patient 03/19 and recommended pureed level 4 diet with thin liquids. Diet advanced per General surgery. Add pureed consistency Remove central line and start PT/OT. Remove Sosa (2) Elevated troponin: Code(s): R79.89 - Other specified abnormal findings of blood chemistry Status: Acute Assessment and Plan: 03/18/23, patient complained of chest pain, EKG showed sinus tachycardia with T-wave inversions in the anterior lateral leads is a new as compared to the EKG done from 03/09 on admission. -troponin peaked at 0.088 before trending down. -patient was started on heparin infusion and completed 48 hours per design/animation instructor -started aspirin and statin -small dose of metoprolol IV 2.5 mg q.6 hours but now changed to oral Appreciate cardiology evaluation and recommendation Continue metoprolol, ASA and Lipitor (3) Cardiomyopathy: Code(s): I42.9 - Cardiomyopathy, unspecified Status: Acute Assessment and Plan: Echo 03/15: showed an EF of 35-40%, grade 1 diastolic dysfunction, mild MVR and mild TVR, RVSP of 36 mmHg -cardiomyopathy may be related to recent septic shock, respiratory failure, stress-induced -cannot rule out ischemic heart disease -cardiology recommended repeating a limited echo to evaluate her cardiac status and EF once she has recovered from these acute issues (4) Acute respiratory failure: Code(s): J96.00 - Acute respiratory failure, unspecified whether with hypoxia or hypercapnia Status: Acute Assessment and Plan: Acute respiratory failure likely related to sepsis with septic shock -03/09: patient intubated at the outside hospital ER -03/17: successfully extubate -weaned off Precedex infusion and home diazepam resumed -currently on 2L with good O2 sats -encourage incentive spirometry Wean oxygen as tolerated (5) Septic shock: Code(s): A41.9 - Sepsis, unspecified organism; R65.21 - Severe sepsis with septic shock Status: Acute Assessment and Plan: Patient presented with hypotension, shortness of breath, acute kidney injury, found to have Acute surgical abdomen secondary to perforated bowel s/p Exploratory laparotomy with total colectomy for Necrotic colon with perforation, OFF ALL PRESSORS -maintain MAP > 65 mmHg are SBP > 100 mmHg at all times for adequate end organ perfusion -03/10: left femoral arterial line was placed -currently on maintenance fluids LR follow-up bernarda
[2023-03-21] MEDS: ENOXAPARIN 40 MG/0.4 ML SYRINGE SUB-Q (15:37)
[2023-03-21 18:44] LABS: Glucose Point of Care 95 mg/dl (65-105)
[2023-03-21] MEDS: GABAPENTIN 300 MG CAPSULE PO (21:20)
[2023-03-21] MEDS: METOPROLOL TARTRATE 12.5 MG TABLET 37.5 MG PO (21:20)
[2023-03-22] VITALS (21 sets, daily range): BP systolic 90–115; BP diastolic 45–59; PULSE 94–118; RESP 16–24; TEMP 36.2–37.5; O2SAT 94–100
[2023-03-22 00:22] LABS: Glucose Point of Care 95 mg/dl (65-105)
[2023-03-22] MEDS: PIPERACILLN/TAZ 3.375GM/NS50ML 3.375 GM/50 ML BAG IVPB ×4 (01:05→18:36)
[2023-03-22] MEDS: IPRATROPIUM BR 0.02% INH SOLN 0.5 MG/2.5 ML VIAL INHALATION ×2 (02:49→10:12)
[2023-03-22] MEDS: LEVALBUTEROL NEB 1.25 MG/3 ML 0.63 MG INHALATION ×2 (02:50→10:12)
[2023-03-22 04:30] LABS: Hematocrit 26.2 % (37.0-47.0); Hemoglobin 8.1 g/dL (12.0-15.0); Mean Corpuscular HGB Conc 30.9 g/dl (32-36); Mean Corpuscular Hemoglobin 26.6 pg (26-34); Mean Corpuscular Volume 86.2 fl (80-100); Mean Platelet Volume 12.2 fl (7.4-10.4); Platelet Count Result 291 k/mm3 (150-375); Red Blood Count 3.04 M/mm3 (4.2-5.4); Red Cell Distribution Width 16.1 % (11.5-14.5); White Blood Count 13.3 K/mm3 (4.5-10.0)
[2023-03-22 04:46] LABS: Albumin Level 2.7 g/dL (3.5-5.1); Anion Gap 7 mmol/L (8-16); Blood Urea Nitrogen 28 mg/dL (7-17); Calcium 8.2 mg/dL (8.4-10.2); Carbon Dioxide 23 mmol/L (22-30); Chloride 105 mmol/L (98-107); Estimated CRCL calculation 50 ml/min; Estimated Glomerular Filt Rate > 60; Glucose 87 mg/dL (65-110); Phosphorus 3.7 mg/dL (2.5-4.5); Potassium 4.3 mmol/L (3.4-5.0); Sodium 135 mmol/L (137-145)
[2023-03-22] MEDS: HYDROmorphone HCL INJ (*CRX) 1 MG/ML SYR IV PUSH (06:36)
[2023-03-22] MEDS: LEVOTHYROXINE SODIUM 50 MCG TABLET PO (06:37)
[2023-03-22] MEDS: CENTRAL LINE FLUSH 10 ML IV PUSH (06:48)
[2023-03-22 06:54] LABS: Glucose Point of Care 94 mg/dl (65-105)
[2023-03-22] MEDS: BUDESONIDE RESPULE NEB 0.5 MG/2 ML AMP INHALATION (10:12)
--- NOTE | 2023-03-22 10:37 | PCNFU ---
Nutrition Follow-Up Complete: Inadequate energy intake related to altered GI function, mechanical ventilation as evidenced by need for trophic tube feeding - Resolved New nutrition problem: Inadequate oral intake related to mouth sores, loss of appetite as evidenced by intakes 25%, patient report of poor appetite Meet estimated nutrition needs when medically able - progressing Goal: Pt current nutrition is Regular diet, puree. 25% intakes on previous clear liquids. Ensure compact BID ordered by provider for additional 220 kcal and 9 g protein each Nutrition recommendation: Continue current diet orders and supplement; add additional supplement, Magic Cup nutritional ice cream for additional 290 kcal and 9 g protein each Last recorded weight is 53 kg. Bowel Motility: +1 BM ileostomy Labs Reviewed: Hgb 8.1, Hct 26.2, Alb 2.7, Na 135 Meds Noted:Zofran, protonix Skin: Incision Additional Notes: Pt says she does not like Ensure but she loves ice cream so we will try nutritional ice cream. Not eating because of mouth sores, MD is aware of mouth sores. Monitoring plan of care, tube feeding orders, weights, labs Following daily in ICU rounds, reassess every Saturday and Saturday per policy
[2023-03-22] MEDS: ASPIRIN 81 MG CHEWABLE TABLET PO (10:41)
[2023-03-22] MEDS: CITALOPRAM HYDROBROMIDE 10 MG TABLET PO (10:44)
[2023-03-22] MEDS: METOPROLOL TARTRATE 12.5 MG TABLET 37.5 MG PO ×2 (10:46→21:13)
[2023-03-22] MEDS: lamoTRIgine 100 MG TABLET PO ×2 (10:47→18:38)
[2023-03-22] MEDS: ATORVASTATIN 40 MG TABLET PO (10:50)
[2023-03-22] MEDS: diazePAM (*CRX) 2 MG TABLET 3 MG PO ×2 (10:50→18:38)
[2023-03-22] MEDS: PANTOPRAZOLE 40 MG TABLET PO (10:50)
[2023-03-22] MEDS: CITALOPRAM HYDROBROMIDE 20 MG TABLET PO (10:50)
[2023-03-22] MEDS: ENOXAPARIN 40 MG/0.4 ML SYRINGE SUB-Q (10:50)
--- NOTE | 2023-03-22 10:51 | PM.IMPN ---
Progress Note: A&P Assessment and Plan (1) Bowel perforation: Code(s): K63.1 - Perforation of intestine (nontraumatic) Status: Acute Assessment and Plan: 03/09: Initial CT scan of the abdomen/pelvis at the outside hospital ER did not show any perforation or free air does dilated and thickened colon suggestive of enterocolitis 03/09: Repeat CT scan abdomen pelvis at [facility] ICU was performed because of abdominal distension and rigid abdomen which showed interval development of free air in the abdomen with likely perforation somewhere near the cecum. Patient underwent ex lap with total colectomy: According to the operative notes the whole colon from the terminal ileum all the way down to the mid sigmoid colon was totally necrotic. Patient had total colectomy. On the OR table patient was very unstable with significantly low blood pressure, and tachycardia, the fascia was left approximated abdominal was closed with vineet in the skin and was transferred to the ICU Patient was taken to the OR for closure of her abdomen 03/12/2023. Patient was given 1 unit of FFP and vitamin K on 03/11. 03/12: Status post ?Second look exploratory laparotomy, completion sigmoid colectomy, segmental small bowel resection, placement of end ileostomy, and abdominal wall closure. Surgery following closely Ostomy has good output NG tube clamped and patient tolerated this well. NG tube removed 03/20 Speech therapy saw the patient 03/19 and recommended pureed level 4 diet with thin liquids. Diet advanced per General surgery. Pureed consistency added Removed central line and Sosa 03/21. PT/OT started. (2) Septic shock: Code(s): A41.9 - Sepsis, unspecified organism; R65.21 - Severe sepsis with septic shock Status: Acute Assessment and Plan: Patient presented with hypotension, shortness of breath, acute kidney injury, found to have Acute surgical abdomen secondary to perforated bowel s/p Exploratory laparotomy with total colectomy for Necrotic colon with perforation, OFF ALL PRESSORS -maintain MAP > 65 mmHg are SBP > 100 mmHg at all times for adequate end organ perfusion -03/10: left femoral arterial line was placed -currently on maintenance fluids LR follow-up insensible fluid loss, as she had a lot of drainage from abdominal incision and NG tube - -improved urine output with normalization of her creatinine and lactic acidosis -BCx 03/09: negative -Sputum Cx 03/10: budding yeast with pseudohyphae -BCx 03/15: negative -status post vancomycin -off stress dose steroids -Zosyn (03/09) stopped 03/19/23 Patient remains afebrile but WBC remained elevated so Zosyn resumed 03/20/23 WBC up again to 13K. Abx per GenSurg Continue to monitor. (3) Elevated troponin: Code(s): R79.89 - Other specified abnormal findings of blood chemistry Status: Acute Assessment and Plan: 03/18/23, patient complained of chest pain, EKG showed sinus tachycardia with T-wave inversions in the anterior lateral leads is a new as compared to the EKG done from 03/09 on admission. -troponin peaked at 0.088 before trending down. -patient was started on heparin infusion and completed 48 hours per feed manager -started aspirin and statin -small dose of metoprolol IV 2.5 mg q.6 hours but now changed to oral Appreciate cardiology evaluation and recommendation Continue metoprolol, ASA and Lipitor (4) Cardiomyopathy: Code(s): I42.9 - Cardiomyopathy, unspecified Status: Acute Assessment and Plan: Echo 03/15: showed an EF of 35-40%, grade 1 diastolic dysfunction, mild MVR and mild TVR, RVSP of 36 mmHg -cardiomyopathy may be related to recent septic shock, respiratory failure, stress-induced -cannot rule out ischemic heart disease -cardiology recommended repeating a limited echo to evaluate her cardiac status and EF once she has recovered from these acute issues (5) Acute respiratory failure: Code(s): J96.00 - Acute res
--- NOTE | 2023-03-22 12:26 | PM.PNGS ---
Progress Note: A&P Assessment and Plan (1) Bowel perforation: Code(s): K63.1 - Perforation of intestine (nontraumatic) Status: Acute Assessment and Plan: Status post colectomy with placement of permanent end ileostomy due to necrotic colon and profound sepsis. she has been extubated and tolerated being off the ventilator. She has been transferred out of the ICU to the IMU and is doing well. She has received medical management for what appeared to be a non STEMI myocardial infarction. Continue solid food as tolerated. Continue to watch her electrolytes to make sure that she is a becoming dehydrated from the ileostomy output. We will remove the NEW drain today. Will event remove her vineet for incision before she is a eventually discharged from the hospital. Continue physical therapy and occupational therapy. Hopefully sometime next week she can be transferred out of the hospital here back to a care facility. (2) Sepsis: Code(s): A41.9 - Sepsis, unspecified organism Status: Acute Subjective Subjective Date/Time Seen: 03/22/23 12:26 Interval history: Patient continues do well today. Readily awakens from her nap this afternoon and seems to be a bit confused but does answer questions easily. looks like she ate a few bites of her lunch but states that her mouth sore from the ulcers in her mouth. Nursing states that yesterday she ate very well. She has good production of her ileostomy as per nursing staff. Physical therapy and occupational therapy start working with her today. No fever. White blood cell count is 13,300 which is slightly elevated from 11,000 yesterday. Albumin is increased to 2.7 now. Exam GI: Other: Abdomen is soft and nondistended. No evidence of incisional hernia. Right upper quadrant end ileostomy is pink and viable. There is no retraction of the ostomy. No leaking from around the stoma bag. Midline incision has vineet in place. Just to the right in the periumbilical region is about a 3cm area of superficial ischemia or necrosis of the dermis of the skin. No surrounding cellulitis. NEW drain in place with minimal serous output. Objective Data Vital Signs Vital Signs: Vital Signs - 24 hr 03/21/23 13:12 03/21/23 13:24 03/21/23 14:00 Temperature Pulse Rate 100 121 H 121 H Respiratory Rate 18 18 Blood Pressure Pulse Oximetry Oxygen Delivery Fraction of Inspired Oxygen 03/21/23 16:00 03/21/23 16:00 03/21/23 16:00 Temperature 36.6 C Pulse Rate 121 H 121 H 120 H Respiratory Rate 18 28 H Blood Pressure 119/49 L Pulse Oximetry 100 96 Oxygen Delivery Room Air Fraction of Inspired Oxygen 03/21/23 18:00 03/21/23 19:55 03/21/23 21:20 Temperature 37.1 C Pulse Rate 121 H 104 H 119 H Respiratory Rate 24 H Blood Pressure 127/56 L Pulse Oximetry 93 Oxygen Delivery Fraction of Inspired Oxygen 03/21/23 21:35 03/21/23 20:00 03/21/23 20:00 Temperature Pulse Rate 112 H 122 H 112 H Respiratory Rate 18 18 Blood Pressure Pulse Oximetry 93 Oxygen Delivery Room Air Fraction of Inspired Oxygen 03/21/23 22:00 03/22/23 00:00 03/22/23 00:00 Temperature 37.5 C Pulse Rate 110 H 111 H 108 H Respiratory Rate 22 H Blood Pressure 115/55 L Pulse Oximetry 95 Oxygen Delivery Fraction of Inspired Oxygen 03/22/23 00:00 03/22/23 02:00 03/22/23 04:00 Temperature 37.0 C Pulse Rate 111 H 117 H 110 H Respiratory Rate 22 H 18 Blood Pressure 112/59 L Pulse Oximetry 95 94 Oxygen Delivery Room Air Fraction of Inspired Oxygen 03/22/23 04:00 03/22/23 04:00 03/22/23 06:00 Temperature Pulse Rate 110 H 110 H 115 H Respiratory Rate 18 Blood Pressure Pulse Oximetry 94 Oxygen Delivery Room Air Fraction of Inspired Oxygen 03/22/23 08:00 03/22/23 09:22 03/22/23 10:13 Temperature 36.8 C Pulse Rate 114 H Respiratory Rate 16 Blood Pressure 90/49
[2023-03-22] MEDS: FLUTICASONE/SALMETEROL 45-21 MCG INHALER 1 PUFF 2 PUFF INHALATION (20:22)
[2023-03-22 20:41] LABS: Glucose Point of Care 87 mg/dl (65-105)
[2023-03-22] MEDS: GABAPENTIN 300 MG CAPSULE PO (21:13)
[2023-03-22] MEDS: ACETAMINOPHEN ELIXIR 325 MG/10.15 ML UDC 650 MG FEED TUBE (21:19)
[2023-03-23] VITALS (18 sets, daily range): BP systolic 97–123; BP diastolic 48–67; PULSE 95–115; RESP 16–24; TEMP 36.6–37.6; O2SAT 93–99
[2023-03-23] MEDS: PIPERACILLN/TAZ 3.375GM/NS50ML 3.375 GM/50 ML BAG IVPB ×4 (00:25→19:11)
[2023-03-23] MEDS: diazePAM (*CRX) 2 MG TABLET 3 MG PO ×3 (02:05→19:12)
[2023-03-23] MEDS: ACETAMINOPHEN ELIXIR 325 MG/10.15 ML UDC 650 MG FEED TUBE (02:06)
[2023-03-23 05:24] LABS: Basophils Percent Auto 0.2 % (0.2-1.2); Eosinophils Absolute Auto 0.1 K/mm3 (0-0.3); Eosinophils Percent Auto 0.4 % (0-4.4); Hematocrit 26.6 % (37.0-47.0); Immature Granulocyte Absolute 0.12 K/mm3 (0.00-0.031); Immature Granulocyte Percent A 0.9 % (0-0.5); Lymphocytes Absolute Auto 0.84 K/mm3 (0.9-3.2); Mean Corpuscular HGB Conc 30.1 g/dl (32-36); Mean Corpuscular Hemoglobin 26.7 pg (26-34); Mean Corpuscular Volume 88.7 fl (80-100); Mean Platelet Volume 12.1 fl (7.4-10.4); Monocytes Absolute Auto 1.3 K/mm3 (0.1-0.6); Monocytes Percent Auto 9.6 % (2.6-8.5); Neutrophils Absolute Auto 11.6 K/mm3 (1.3-6.7); Neutrophils Percent Auto 82.9 % (45.5-73.1); Platelet Count Result 328 k/mm3 (150-375); Red Cell Distribution Width 15.9 % (11.5-14.5)
[2023-03-23 05:28] LABS: Alanine Aminotransferase 78 U/L (6-35); Alkaline Phosphatase 124 U/L (38-126); Anion Gap 8 mmol/L (8-16); Aspartate Amino Transferase 102 U/L (14-36); Bilirubin,Total 0.7 mg/dL (0.2-1.3); Blood Urea Nitrogen 27 mg/dL (7-17); Calcium 8.6 mg/dL (8.4-10.2); Carbon Dioxide 24 mmol/L (22-30); Chloride 102 mmol/L (98-107); Estimated CRCL calculation 44 ml/min; Estimated Glomerular Filt Rate > 60; Glucose 86 mg/dL (65-110); Potassium 4.3 mmol/L (3.4-5.0); Sodium 134 mmol/L (137-145)
[2023-03-23] MEDS: LEVOTHYROXINE SODIUM 50 MCG TABLET PO (06:05)
[2023-03-23] MEDS: FLUTICASONE/SALMETEROL 45-21 MCG INHALER 1 PUFF 2 PUFF INHALATION ×2 (08:26→20:54)
--- NOTE | 2023-03-23 10:16 | PM.PNGS ---
Progress Note: A&P Assessment and Plan (1) Bowel perforation: Code(s): K63.1 - Perforation of intestine (nontraumatic) Status: Acute Assessment and Plan: Continuing to improve. Will change diet to low-fiber or soft. Continue ambulation and therapy. Making excellent progress. (2) Ileostomy status: Code(s): Z93.2 - Ileostomy status Status: Acute Assessment and Plan: [place] and healthy, functioning well. No excessive output or signs of dehydration. Subjective Subjective Date/Time Seen: 03/23/23 10:16 Post Op day: #11 Patient reports: feels better (Getting up, walking, and sitting in chair), pain is less, bowel movement (Ileostomy) and other (Hates the pureed diet) Exam Const: General: cooperative, comfortable, no acute distress, awake and Physically active Nutritional Appearance: thin Orientation/consciousness: patient oriented x3 and No confusion GI: Inspection: incision (Healing, dry area skin slough mid wound) and other (Ileostomy pink and working well) GI Palp: Yes Soft to palpation, No Tenderness to palpation present (GI), No Guarding due to palpation present (GI), No Hernia present, No Palpable mass present and No Rebound tenderness present Auscultation: normoactive bowel sounds Neuro: General: patient oriented x3 and no focal motor deficits Extrem: General: no calf tenderness and no edema Psych: Affect: normal affect Insight: Good insight present (Psych) Judgement: Good judgement present (Psych) Objective Data Vital Signs Vital Signs: Vital Signs - 24 hr 03/22/23 10:29 03/22/23 10:46 03/22/23 12:00 Temperature 37.4 C Pulse Rate 112 H 111 H 94 Respiratory Rate 20 16 Blood Pressure 102/59 L Pulse Oximetry Oxygen Delivery Fraction of Inspired Oxygen 03/22/23 15:01 03/22/23 15:23 03/22/23 12:00 Temperature 37.5 C Pulse Rate 103 H Respiratory Rate 24 H Blood Pressure 97/51 L Pulse Oximetry 100 Oxygen Delivery Room Air Room Air Fraction of Inspired Oxygen 03/22/23 16:00 03/22/23 12:00 03/22/23 14:00 Temperature Pulse Rate 118 H 111 H Respiratory Rate Blood Pressure Pulse Oximetry Oxygen Delivery Room Air Fraction of Inspired Oxygen 03/22/23 16:00 03/22/23 18:00 03/22/23 20:22 Temperature Pulse Rate 113 H 111 H 108 H Respiratory Rate 20 Blood Pressure Pulse Oximetry Oxygen Delivery Fraction of Inspired Oxygen 03/22/23 20:23 03/22/23 20:34 03/22/23 21:13 Temperature 36.2 C L Pulse Rate 107 H 107 H Respiratory Rate 24 H Blood Pressure 111/48 L Pulse Oximetry 98 96 Oxygen Delivery Room Air Fraction of Inspired Oxygen 03/22/23 23:54 03/22/23 20:00 03/22/23 20:00 Temperature 36.5 C Pulse Rate 112 H 103 H Respiratory Rate 24 H Blood Pressure 115/45 L Pulse Oximetry 98 96 Oxygen Delivery Room Air Fraction of Inspired Oxygen 03/22/23 22:00 03/23/23 00:00 03/23/23 00:00 Temperature Pulse Rate 112 H 106 H Respiratory Rate Blood Pressure Pulse Oximetry 98 Oxygen Delivery Room Air Fraction of Inspired Oxygen 03/23/23 02:00 03/23/23 04:00 03/23/23 04:00 Temperature Pulse Rate 100 97 Respiratory Rate Blood Pressure Pulse Oximetry 98 Oxygen Delivery Room Air Fraction of Inspired Oxygen 03/23/23 06:00 03/23/23 06:00 03/23/23 08:00 Temperature 37.1 C 36.6 C Pulse Rate 105 H 105 H 104 H Respiratory Rate 24 H 16 Blood Pressure 123/67 106/54 L Pulse Oximetry 98 96 Oxygen Delivery Fraction of Inspired Oxygen 03/23/23 08:31 03/23/23 08:00 Temperature Pulse Rate 104 H Respiratory Rate 16 Blood Pressure Pulse Oximetry 93 93 Oxygen Delivery Room Air Room Air Fraction of Inspired Oxygen 28 Intake/Output Intake/Output: Intake & Output 03/20/23 03/21/23 03/22/23 03/23/23 23:59 23:59 23:59 23:59 Intake Total 0522 408 7132 450 Output Total 2485 1150 551 350 Balance -129
[2023-03-23] MEDS: METOPROLOL TARTRATE 12.5 MG TABLET 37.5 MG PO ×2 (10:43→21:11)
[2023-03-23] MEDS: ASPIRIN 81 MG CHEWABLE TABLET PO (10:43)
[2023-03-23] MEDS: lamoTRIgine 100 MG TABLET PO ×2 (10:44→19:12)
[2023-03-23] MEDS: CITALOPRAM HYDROBROMIDE 20 MG TABLET PO (10:44)
[2023-03-23] MEDS: CITALOPRAM HYDROBROMIDE 10 MG TABLET PO (10:44)
[2023-03-23] MEDS: PANTOPRAZOLE 40 MG TABLET PO (10:45)
[2023-03-23] MEDS: ENOXAPARIN 40 MG/0.4 ML SYRINGE SUB-Q (10:45)
[2023-03-23] MEDS: ATORVASTATIN 40 MG TABLET PO (10:45)
[2023-03-23] MEDS: HYDROcodone/acetaminophen (*CRX) 10-325 MG TABLET 1 TAB PO (10:51)
[2023-03-23 12:19] LABS: Glucose Point of Care 118 mg/dl (65-105)
[2023-03-23] MEDS: HYDROcodone/acetaminophen (*CRX) 5-325 MG TABLET 1 TAB PO ×2 (14:40→21:10)
[2023-03-23 16:21] LABS: Glucose Point of Care 83 mg/dl (65-105)
--- NOTE | 2023-03-23 19:49 | PM.IMPN ---
Progress Note: A&P Assessment and Plan (1) Bowel perforation: Code(s): K63.1 - Perforation of intestine (nontraumatic) Status: Acute Assessment and Plan: 03/09: Initial CT scan of the abdomen/pelvis at the outside hospital ER did not show any perforation or free air does dilated and thickened colon suggestive of enterocolitis 03/09: Repeat CT scan abdomen pelvis at [facility] ICU was performed because of abdominal distension and rigid abdomen which showed interval development of free air in the abdomen with likely perforation somewhere near the cecum. Patient underwent ex lap with total colectomy: According to the operative notes the whole colon from the terminal ileum all the way down to the mid sigmoid colon was totally necrotic. Patient had total colectomy. On the OR table patient was very unstable with significantly low blood pressure, and tachycardia, the fascia was left approximated abdominal was closed with vineet in the skin and was transferred to the ICU Patient was taken to the OR for closure of her abdomen 03/12/2023. Patient was given 1 unit of FFP and vitamin K on 03/11. 03/12: Status post ?Second look exploratory laparotomy, completion sigmoid colectomy, segmental small bowel resection, placement of end ileostomy, and abdominal wall closure. Surgery following closely Ostomy has good output NG tube clamped and patient tolerated this well. NG tube removed 03/20 Speech therapy saw the patient 03/19 and recommended pureed level 4 diet with thin liquids. Diet advanced per General surgery. Pureed consistency added Removed central line and Sosa 03/21. PT/OT started. Continue to have patient up to the chair and walking (2) Septic shock: Code(s): A41.9 - Sepsis, unspecified organism; R65.21 - Severe sepsis with septic shock Status: Acute Assessment and Plan: Patient presented with hypotension, shortness of breath, acute kidney injury, found to have Acute surgical abdomen secondary to perforated bowel s/p Exploratory laparotomy with total colectomy for Necrotic colon with perforation, OFF ALL PRESSORS -maintain MAP > 65 mmHg are SBP > 100 mmHg at all times for adequate end organ perfusion -03/10: left femoral arterial line was placed -currently on maintenance fluids LR follow-up insensible fluid loss, as she had a lot of drainage from abdominal incision and NG tube - -improved urine output with normalization of her creatinine and lactic acidosis -BCx 03/09: negative -Sputum Cx 03/10: budding yeast with pseudohyphae -BCx 03/15: negative -status post vancomycin -off stress dose steroids -Zosyn (03/09) stopped 03/19/23 Patient remains afebrile but WBC remained elevated so Zosyn resumed 03/20/23 WBC up again to 14K. Abx per GenSurg Continue to monitor. (3) Elevated troponin: Code(s): R79.89 - Other specified abnormal findings of blood chemistry Status: Acute Assessment and Plan: 03/18/23, patient complained of chest pain, EKG showed sinus tachycardia with T-wave inversions in the anterior lateral leads is a new as compared to the EKG done from 03/09 on admission. -troponin peaked at 0.088 before trending down. -patient was started on heparin infusion and completed 48 hours per fire patrol -started aspirin and statin -small dose of metoprolol IV 2.5 mg q.6 hours but now changed to oral Appreciate cardiology evaluation and recommendation Continue metoprolol, ASA and Lipitor (4) Cardiomyopathy: Code(s): I42.9 - Cardiomyopathy, unspecified Status: Acute Assessment and Plan: Echo 03/15: showed an EF of 35-40%, grade 1 diastolic dysfunction, mild MVR and mild TVR, RVSP of 36 mmHg -cardiomyopathy may be related to recent septic shock, respiratory failure, stress-induced -cannot rule out ischemic heart disease -cardiology recommended repeating a limited echo to evaluate her cardiac status and EF once she has recovered from these acute issues (5) Acute res
[2023-03-23] MEDS: GABAPENTIN 300 MG CAPSULE PO (21:12)
[2023-03-24] VITALS (17 sets, daily range): BP systolic 97–119; BP diastolic 43–55; PULSE 95–123; RESP 16–20; TEMP 36.3–38.3; O2SAT 94–100
[2023-03-24] MEDS: PIPERACILLN/TAZ 3.375GM/NS50ML 3.375 GM/50 ML BAG IVPB ×5 (00:08→23:44)
[2023-03-24] MEDS: HYDROcodone/acetaminophen (*CRX) 5-325 MG TABLET 1 TAB PO ×3 (01:40→10:20)
[2023-03-24] MEDS: diazePAM (*CRX) 2 MG TABLET 3 MG PO ×4 (01:41→23:50)
[2023-03-24 05:04] LABS: Basophils Percent Auto 0.2 % (0.2-1.2); Eosinophils Percent Auto 0.1 % (0-4.4); Hematocrit 24.9 % (37.0-47.0); Hemoglobin 7.6 g/dL (12.0-15.0); Immature Granulocyte Absolute 0.11 K/mm3 (0.00-0.031); Immature Granulocyte Percent A 0.8 % (0-0.5); Lymphocytes Percent Auto 6.5 % (18.3-44.2); Mean Corpuscular HGB Conc 30.5 g/dl (32-36); Mean Corpuscular Hemoglobin 26.6 pg (26-34); Mean Corpuscular Volume 87.1 fl (80-100); Monocytes Absolute Auto 1.1 K/mm3 (0.1-0.6); Monocytes Percent Auto 8.3 % (2.6-8.5); Neutrophils Absolute Auto 11.6 K/mm3 (1.3-6.7); Neutrophils Percent Auto 84.1 % (45.5-73.1); Platelet Count Result 324 k/mm3 (150-375); Red Blood Count 2.86 M/mm3 (4.2-5.4); Red Cell Distribution Width 15.9 % (11.5-14.5); White Blood Count 13.8 K/mm3 (4.5-10.0)
[2023-03-24 05:18] LABS: Alanine Aminotransferase 67 U/L (6-35); Albumin Level 2.9 g/dL (3.5-5.1); Alkaline Phosphatase 130 U/L (38-126); Anion Gap 5 mmol/L (8-16); Aspartate Amino Transferase 83 U/L (14-36); Bilirubin,Total 0.7 mg/dL (0.2-1.3); Blood Urea Nitrogen 22 mg/dL (7-17); Calcium 8.6 mg/dL (8.4-10.2); Carbon Dioxide 25 mmol/L (22-30); Chloride 101 mmol/L (98-107); Estimated CRCL calculation 40 ml/min; Estimated Glomerular Filt Rate 56; Glucose 96 mg/dL (65-110); Potassium 4.3 mmol/L (3.4-5.0); Sodium 131 mmol/L (137-145)
[2023-03-24 05:49] LABS: Hepatitis B Surface Antigen Negative (Negative)
[2023-03-24 05:58] LABS: Hepatitis B Core IgM Result Negative (Negative)
[2023-03-24 06:06] LABS: Hepatitis C Virus Antibody Negative (Negative)
[2023-03-24] MEDS: LEVOTHYROXINE SODIUM 50 MCG TABLET PO (06:24)
[2023-03-24 06:59] LABS: HAV RESULT Negative (Negative)
[2023-03-24] MEDS: FLUTICASONE/SALMETEROL 45-21 MCG INHALER 1 PUFF 2 PUFF INHALATION ×2 (09:17→20:40)
[2023-03-24] MEDS: ASPIRIN 81 MG CHEWABLE TABLET PO (10:18)
[2023-03-24] MEDS: PANTOPRAZOLE 40 MG TABLET PO (10:19)
[2023-03-24] MEDS: CITALOPRAM HYDROBROMIDE 10 MG TABLET PO (10:20)
[2023-03-24] MEDS: CITALOPRAM HYDROBROMIDE 20 MG TABLET PO (10:20)
[2023-03-24] MEDS: ATORVASTATIN 40 MG TABLET PO (10:21)
[2023-03-24] MEDS: METOPROLOL TARTRATE 12.5 MG TABLET 37.5 MG PO ×2 (10:28→21:31)
[2023-03-24] MEDS: lamoTRIgine 100 MG TABLET PO ×2 (10:28→16:55)
--- NOTE | 2023-03-24 12:11 | PM.IMPN ---
Progress Note: A&P Assessment and Plan (1) Bowel perforation: Code(s): K63.1 - Perforation of intestine (nontraumatic) Status: Acute Assessment and Plan: 03/09: Initial CT scan of the abdomen/pelvis at the outside hospital ER did not show any perforation or free air does dilated and thickened colon suggestive of enterocolitis 03/09: Repeat CT scan abdomen pelvis at [facility] ICU was performed because of abdominal distension and rigid abdomen which showed interval development of free air in the abdomen with likely perforation somewhere near the cecum. Patient underwent ex lap with total colectomy: According to the operative notes the whole colon from the terminal ileum all the way down to the mid sigmoid colon was totally necrotic. Patient had total colectomy. On the OR table patient was very unstable with significantly low blood pressure, and tachycardia, the fascia was left approximated abdominal was closed with vineet in the skin and was transferred to the ICU Patient was taken to the OR for closure of her abdomen 03/12/2023. Patient was given 1 unit of FFP and vitamin K on 03/11. 03/12: Status post ?Second look exploratory laparotomy, completion sigmoid colectomy, segmental small bowel resection, placement of end ileostomy, and abdominal wall closure. Surgery following closely Ostomy has good output NG tube clamped and patient tolerated this well. NG tube removed 03/20 Speech therapy saw the patient 03/19 and recommended pureed level 4 diet with thin liquids. Diet advanced per General surgery. Pureed consistency added Removed central line and Sosa 03/21. PT/OT started. More abd pain to the RLQ. Could be sore from being up to the chair and being more active. WBC mildly elevated and stable today Repeat CT scan ordered. (2) Septic shock: Code(s): A41.9 - Sepsis, unspecified organism; R65.21 - Severe sepsis with septic shock Status: Acute Assessment and Plan: Patient presented with hypotension, shortness of breath, acute kidney injury, found to have Acute surgical abdomen secondary to perforated bowel s/p Exploratory laparotomy with total colectomy for Necrotic colon with perforation, OFF ALL PRESSORS -maintain MAP > 65 mmHg are SBP > 100 mmHg at all times for adequate end organ perfusion -03/10: left femoral arterial line was placed -currently on maintenance fluids LR follow-up insensible fluid loss, as she had a lot of drainage from abdominal incision and NG tube - -improved urine output with normalization of her creatinine and lactic acidosis -BCx 03/09: negative -Sputum Cx 03/10: budding yeast with pseudohyphae -BCx 03/15: negative -status post vancomycin -off stress dose steroids -Zosyn (03/09) stopped 03/19/23 Patient remains afebrile but WBC remained elevated so Zosyn resumed 03/20/23 WBC stable 13-14K. Abx per GenSurg Continue to monitor. (3) Elevated troponin: Code(s): R79.89 - Other specified abnormal findings of blood chemistry Status: Acute Assessment and Plan: 03/18/23, patient complained of chest pain, EKG showed sinus tachycardia with T-wave inversions in the anterior lateral leads is a new as compared to the EKG done from 03/09 on admission. -troponin peaked at 0.088 before trending down. -patient was started on heparin infusion and completed 48 hours per community planning technician -started aspirin and statin -small dose of metoprolol IV 2.5 mg q.6 hours but now changed to oral Appreciate cardiology evaluation and recommendation Continue metoprolol, ASA and Lipitor (4) Cardiomyopathy: Code(s): I42.9 - Cardiomyopathy, unspecified Status: Acute Assessment and Plan: Echo 03/15: showed an EF of 35-40%, grade 1 diastolic dysfunction, mild MVR and mild TVR, RVSP of 36 mmHg Cardiomyopathy may be related to recent septic shock, respiratory failure, stress-induced -cannot rule out ischemic heart disease -cardiology recommended repeating a limited echo to
[2023-03-24 13:16] LABS: Lipase 207 U/L (23-300)
--- NOTE | 2023-03-24 16:36 | PM.PNGS ---
Progress Note: A&P Assessment and Plan (1) Right lower quadrant abdominal pain: Code(s): R10.31 - Right lower quadrant pain Status: Acute Assessment and Plan: When I went to see the patient, her right lower quadrant pain was gone. 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 This had been bothering her all morning per nursing and they were quite surprised that she reported it had stopped. CT scan of the abdomen and pelvis had been ordered earlier this morning. Has not been read as yet but by my review looks as though patient has a distal small-bowel obstruction with transition point at or near the ileostomy. She has not been vomiting. Will cut her oral intake back to clear liquids and if does vomit, will have NG tube placed. Consider having enterostomal therapy nurses irrigate ileostomy tomorrow. (2) Acute urinary retention: Code(s): R33.8 - Other retention of urine Status: Acute Assessment and Plan: Urinary bladder massively distended on CT scan. Will replace Sosa catheter which was removed yesterday. (3) Abnormal CT scan, gastrointestinal tract: Code(s): R93.3 - Abnormal findings on diagnostic imaging of other parts of digestive tract Status: Acute Assessment and Plan: As above. Suggests distal small-bowel obstruction by my review. Will decrease diet to clear liquids and if patient has vomiting will need NG tube. (4) Ileostomy status: Code(s): Z93.2 - Ileostomy status Status: Acute Assessment and Plan: May be source of small-bowel obstruction. Probably irrigate by enterostomal therapy nurses tomorrow to see if intraluminal roughage is the cause. Subjective Subjective Date/Time Seen: 03/24/23 16:36 Patient reports: bowel movement (Ileostomy output), afebrile and other (Complaining of right lower quadrant pain today) Exam Const: General: comfortable, awake and thin Nutritional Appearance: thin GI: Inspection: non-distended, incision (No change, no sign infection), scaphoid, no visible herniation and other (Much enteric output in the ileostomy bag) GI Palp: Yes Soft to palpation, Yes Tenderness to palpation present (GI) (Right lower quadrant tender), No Hernia present and No Palpable mass present Auscultation: normal bowel sounds Objective Data Vital Signs Vital Signs: Vital Signs - 24 hr 03/23/23 18:00 03/23/23 19:47 03/23/23 21:11 Temperature 36.9 C Pulse Rate 101 H 115 H 110 H Respiratory Rate 18 Blood Pressure 112/59 L Pulse Oximetry 97 Oxygen Delivery Fraction of Inspired Oxygen 03/23/23 23:44 03/24/23 00:00 03/23/23 21:00 Temperature 37.6 C 37.6 C Pulse Rate 110 H 110 H Respiratory Rate 20 20 Blood Pressure 118/48 L 118/48 L Pulse Oximetry 94 94 94 Oxygen Delivery Room Air Fraction of Inspired Oxygen 03/23/23 20:00 03/23/23 20:00 03/23/23 22:00 Temperature Pulse Rate 107 H 109 H Respiratory Rate Blood Pressure Pulse Oximetry 97 Oxygen Delivery Room Air Fraction of Inspired Oxygen 03/24/23 00:00 03/24/23 00:00 03/24/23 02:00 Temperature Pulse Rate 111 H 95 Respiratory Rate Blood Pressure Pulse Oximetry 94 Oxygen Delivery Room Air Fraction of Inspired Oxygen 03/24/23 04:00 03/24/23 04:00 03/24/23 04:00 Temperature 36.9 C Pulse Rate 103 H 95 Respiratory Rate 18 Blood Pressure 97/50 L Pulse Oximetry 96 96 Oxygen Delivery Room Air Fraction of Inspired Oxygen 03/24/23 06:00 03/24/23 08:00 03/24/23 08:00 Temperature 36.8 C Pulse Rate 106 H 102 H 100 Respiratory Rate 16 Blood Pressure 119/52 L Pulse Oximetry 97 Oxygen Delivery Fraction of Inspired Oxygen 03/24/23 10:00 03/24/23 12:00 03/24/23 12:00 Temperature 36.8 C Pulse Rate 97 105 H 106 H Respiratory Rate 20 Blood Pressure 108/55 L Pulse Oximetry 96 Oxygen Delivery Fraction of Inspired Oxygen
[2023-03-24] MEDS: HYDROcodone/acetaminophen (*CRX) 10-325 MG TABLET 1 TAB PO ×2 (16:56→23:41)
[2023-03-24] MEDS: GABAPENTIN 300 MG CAPSULE PO (21:31)
[2023-03-24] MEDS: ACETAMINOPHEN ELIXIR 325 MG/10.15 ML UDC 650 MG FEED TUBE (21:35)
[2023-03-25] VITALS (14 sets, daily range): BP systolic 101–121; BP diastolic 48–59; PULSE 97–115; RESP 16–20; TEMP 36.4–37.4; O2SAT 94–99
[2023-03-25 05:26] LABS: Basophils Percent Auto 0.2 % (0.2-1.2); Eosinophils Percent Auto 0.1 % (0-4.4); Hematocrit 23.5 % (37.0-47.0); Hemoglobin 7.4 g/dL (12.0-15.0); Immature Granulocyte Absolute 0.09 K/mm3 (0.00-0.031); Immature Granulocyte Percent A 0.5 % (0-0.5); Lymphocytes Absolute Auto 0.94 K/mm3 (0.9-3.2); Lymphocytes Percent Auto 5.7 % (18.3-44.2); Mean Corpuscular HGB Conc 31.5 g/dl (32-36); Mean Corpuscular Hemoglobin 27.1 pg (26-34); Mean Corpuscular Volume 86.1 fl (80-100); Mean Platelet Volume 11.2 fl (7.4-10.4); Monocytes Absolute Auto 1.5 K/mm3 (0.1-0.6); Monocytes Percent Auto 8.9 % (2.6-8.5); Neutrophils Percent Auto 84.6 % (45.5-73.1); Platelet Count Result 335 k/mm3 (150-375); Red Blood Count 2.73 M/mm3 (4.2-5.4); Red Cell Distribution Width 15.9 % (11.5-14.5); White Blood Count 16.6 K/mm3 (4.5-10.0)
[2023-03-25 05:45] LABS: Alanine Aminotransferase 48 U/L (6-35); Albumin Level 2.7 g/dL (3.5-5.1); Alkaline Phosphatase 112 U/L (38-126); Anion Gap 4 mmol/L (8-16); Aspartate Amino Transferase 57 U/L (14-36); Bilirubin,Total 0.5 mg/dL (0.2-1.3); Blood Urea Nitrogen 15 mg/dL (7-17); Calcium 8.4 mg/dL (8.4-10.2); Carbon Dioxide 27 mmol/L (22-30); Chloride 101 mmol/L (98-107); Estimated CRCL calculation 44 ml/min; Estimated Glomerular Filt Rate > 60; Glucose 78 mg/dL (65-110); Potassium 4.2 mmol/L (3.4-5.0); Sodium 132 mmol/L (137-145)
[2023-03-25] MEDS: LEVOTHYROXINE SODIUM 50 MCG TABLET PO (05:59)
[2023-03-25] MEDS: HYDROcodone/acetaminophen (*CRX) 10-325 MG TABLET 1 TAB PO ×2 (05:59→12:03)
[2023-03-25] MEDS: PIPERACILLN/TAZ 3.375GM/NS50ML 3.375 GM/50 ML BAG IVPB ×4 (05:59→23:48)
[2023-03-25] MEDS: METOPROLOL TARTRATE 12.5 MG TABLET 37.5 MG PO ×2 (08:58→20:35)
[2023-03-25] MEDS: ATORVASTATIN 40 MG TABLET PO (08:58)
[2023-03-25] MEDS: ASPIRIN 81 MG CHEWABLE TABLET PO (08:58)
[2023-03-25] MEDS: CITALOPRAM HYDROBROMIDE 10 MG TABLET PO (08:59)
[2023-03-25] MEDS: CITALOPRAM HYDROBROMIDE 20 MG TABLET PO (08:59)
[2023-03-25] MEDS: lamoTRIgine 100 MG TABLET PO ×2 (08:59→17:25)
[2023-03-25] MEDS: PANTOPRAZOLE 40 MG TABLET PO (08:59)
[2023-03-25] MEDS: diazePAM (*CRX) 2 MG TABLET 3 MG PO ×2 (09:04→17:25)
[2023-03-25] MEDS: FLUTICASONE/SALMETEROL 45-21 MCG INHALER 1 PUFF 2 PUFF INHALATION ×2 (10:15→21:05)
[2023-03-25] MEDS: ENOXAPARIN 40 MG/0.4 ML SYRINGE SUB-Q (11:58)
--- NOTE | 2023-03-25 13:05 | PM.PNGS ---
Progress Note: A&P Assessment and Plan (1) Small bowel obstruction: Code(s): K56.609 - Unspecified intestinal obstruction, unspecified as to partial versus complete obstruction Status: Acute Assessment and Plan: CT yesterday showed small bowel obstruction with transition point in right mid abdomen. Appears that this could be due to some roughage near the ileostomy. Dr. Melendrez has asked the wound/ostomy nurses irrigate the ileostomy today. Will keep her on clear liquids for now as she is not vomiting and tolerating some clear liquids. If she starts vomiting, discussed with the patient that she would likely need an NG tube. Since her oral intake is low, I will also start her on LR at 60 mL/hr. (2) Ileostomy status: Code(s): Z93.2 - Ileostomy status Status: Acute Assessment and Plan: May be source of small-bowel obstruction. We have asked the wound care nurses to irrigate to stoma to see if intraluminal roughage is the cause. She may have passed some of this today through her bag. (3) Acute urinary retention: Code(s): R33.8 - Other retention of urine Status: Acute Assessment and Plan: Sosa catheter was placed yesterday due to acute urinary retention, continue for now. (4) Bowel perforation: Code(s): K63.1 - Perforation of intestine (nontraumatic) Status: Acute Assessment and Plan: Continue IV Zosyn. WBC up to 16,600 today and she had a fever last night. No central lines in place, she only has a peripheral IV. She had her urinary catheter replaced yesterday due to urinary retention. Incision healing well other than an area of necrotic skin near the periumbilical area extending towards the ileostomy. No surrounding cellulitis or obvious purulent drainage. Discussed with Dr. Kim and will plan on proceeding with bedside excisional debridement of necrotic abdominal wound this afternoon at the bedside. Description of the procedure, alternatives, risks, and benefits were discussed with the patient in detail. She agrees to proceed, consent signed. Plan I have discussed the patient's case and plan of care with Dr. Kim. Subjective Subjective Date/Time Seen: 03/25/23 10:05 Patient reports: fever (101F around 2100 last night) Interval history: 03/09/23 - Exploratory laparotomy with total colectomy by Dr. Kim due to findings of a totally necrotic colon 03/12/23 - second look exploratory laparotomy, completion sigmoid colectomy, segmental small bowel resection, placement of end ileostomy, and abdominal wall closure by Dr. Kim Patient seen this morning. Chart reviewed since last seen. She is in IMU. She was complaining of RLQ abdominal pain over the weekend and had a CT scan of the abdomen and pelvis yesterday. This showed a small-bowel obstruction and her diet was backed off to clear liquids. She also had significant bladder distention and had her Sosa catheter replaced, as it was removed the day prior. She still complains of some lower abdominal pain today but states it goes all the way across. She does report some improvement of her pain after the catheter was placed. She reports having some nausea, but no vomiting. Her ileostomy output did diminish over the weekend with only 125 cc out over the past 24 hours. She also had a temp of a 101? F last night in her white blood cell count is up to 16.6 today. She seems to be drinking liquids well. She has some nausea, but no vomiting. Reports belching. Review of Systems Review of Systems: All systems reviewed & are unremarkable except as noted in HPI and below Exam Const: General: comfortable and no acute distress Orientation/consciousness: patient oriented x3 GI: Inspection: other (mildly distended) GI Palp: Yes Soft to palpation, Yes Tenderness to palpation present (GI) (diffusely tender), No Guarding due to palpation present (GI) and No Rebound tenderness present Auscultation: Hypoactive bowel sounds present Other: Righ
--- NOTE | 2023-03-25 14:59 | W.PM.PROC2 ---
Procedure Note - Detailed Date of Procedure 03/25/23 Pre-op Diagnosis Necrotic abdominal wound Post-op Diagnosis Same Procedure Performed Excisional debridement of skin and subcutaneous tissue of necrotic abdominal wound, measuring 3 cm x 5 cm x 0.3 cm Surgeon Ashley Luevano, [employer] OPER[employer] HELPER Laboratory Apparatus Glass Blower Scarlett wound RN Anesthesia None Indications This is a 62 year old female who presented with septic shock and was taken to OR on 03/09/23 for an exploratory laparotomy with total colectomy by Dr. Kim due to findings of a totally necrotic colon. She was unstable and decision was made to leave the fascia open and close skin simply with vineet to get her back up to ICU for critical care management. She eventually became more stable and was able to be taken back three days later for second look exploratory laparotomy, completion sigmoid colectomy, segmental small bowel resection, placement of end ileostomy, and abdominal wall closure by Dr. Kim. She has since improved following critical care and medical management. Her midline incision has been followed and overall healing well other than a small periumbilical area of ischemic skin that has developed necrotic tissue. Decision was made to proceed with bedside excisional debridement today. Findings Superficial necrotic wound at the umbilicus extending to the right of the incision just below the ileostomy. Description of Procedure The patient was in the supine position in the bed in the IMU. Sterile prep was carried out over the wound with iodine swabs. The area was draped in usual sterile fashion. Then, excisional debridement was carried out using a 15 blade scalpel at the periumbilical area and completely involving the umbilicus. I debrided soft black necrotic eschar over the umbilicus and then use a scissors and pickups for debridement of the skin and subcutaneous tissue around the periumbilical area right of the incision just below the ileostomy until I was down to healthy bleeding tissue. No purulent drainage encountered. The entire wound measured 3 cm x 5 cm x 0.3 cm. There is a small area at the umbilicus that still appears black and necrotic, but is firm and stable. The wound care nurses were at the bedside and applied a silver rope dressing covered by a duoderm since the ileostomy appliance would overlap the wound. The patient tolerated the procedure well. Estimated Blood Loss 0 Drains No Packing No Pathology None sent Complications No immediate complications Condition Stable Disposition No change [facility] [place] Billing Surgery - Charge Forward: Surgery Billing
[2023-03-25] MEDS: LACTATED RINGERS 1,000 ML 60 ML IV CONT (16:00)
--- NOTE | 2023-03-25 17:56 | PM.IMPN ---
Progress Note: A&P Assessment and Plan (1) Bowel perforation: Code(s): K63.1 - Perforation of intestine (nontraumatic) Status: Acute Assessment and Plan: 03/09: Initial CT scan of the abdomen/pelvis at the outside hospital ER did not show any perforation or free air does dilated and thickened colon suggestive of enterocolitis 03/09: Repeat CT scan abdomen pelvis at [facility] ICU was performed because of abdominal distension and rigid abdomen which showed interval development of free air in the abdomen with likely perforation somewhere near the cecum. Patient underwent ex lap with total colectomy: According to the operative notes the whole colon from the terminal ileum all the way down to the mid sigmoid colon was totally necrotic. Patient had total colectomy. On the OR table patient was very unstable with significantly low blood pressure, and tachycardia, the fascia was left approximated abdominal was closed with vineet in the skin and was transferred to the ICU Patient was taken to the OR for closure of her abdomen 03/12/2023. Patient was given 1 unit of FFP and vitamin K on 03/11. 03/12: Status post ?Second look exploratory laparotomy, completion sigmoid colectomy, segmental small bowel resection, placement of end ileostomy, and abdominal wall closure. Surgery following closely Ostomy has good output NG tube clamped and patient tolerated this well. NG tube removed 03/20 Speech therapy saw the patient 03/19 and recommended pureed level 4 diet with thin liquids. Diet advanced per General surgery. Pureed consistency added Removed central line and Sosa 03/21. PT/OT started. More abd pain to the RLQ. Repeat CT Abd/Pelvis 03/24: S/P interval colectomy with ileostomy, extensive small bowel dilatation and gastric distention without transition point at the right mid abdomen c/w SBO, moderate abdominopelvic ascites, diffuse mesenteric edema, small bilateral pleural effusions with bibasilar atelectatic change, mild right hydronephrosis, distended bladder and fluid in the endometrial cavity versus prominent endometrium. Ostomy was flushed. Diet changed to clears. IVF started. Anasarca noted. Albumin 2.7. Diuresis when diet advanced and she is improving WBC higher today and having fevers as well. She remains on Zosyn. Sosa placed yesterday for urine retention. Renal function normal. Should improve the mild hydronephrosis. Check CXR and BCx. (2) Small bowel obstruction: Code(s): K56.609 - Unspecified intestinal obstruction, unspecified as to partial versus complete obstruction Status: Acute Assessment and Plan: As above (3) Acute urinary retention: Code(s): R33.8 - Other retention of urine Status: Acute Assessment and Plan: Sosa placed 03/24/23. Sosa trial when more up and around (4) Septic shock: Code(s): A41.9 - Sepsis, unspecified organism; R65.21 - Severe sepsis with septic shock Status: Acute Assessment and Plan: Patient presented with hypotension, shortness of breath, acute kidney injury, found to have Acute surgical abdomen secondary to perforated bowel s/p Exploratory laparotomy with total colectomy for Necrotic colon with perforation, OFF ALL PRESSORS -maintain MAP > 65 mmHg are SBP > 100 mmHg at all times for adequate end organ perfusion -03/10: left femoral arterial line was placed -currently on maintenance fluids LR follow-up insensible fluid loss, as she had a lot of drainage from abdominal incision and NG tube - -improved urine output with normalization of her creatinine and lactic acidosis -BCx 03/09: negative -Sputum Cx 03/10: budding yeast with pseudohyphae -BCx 03/15: negative -status post vancomycin -off stress dose steroids -Zosyn (03/09) stopped 03/19/23 Patient remains afebrile but WBC remained elevated so Zosyn resumed 03/20/23 WBC up to 16k and now having fevers. Abx per GenSurg Check CXR and BCx. Continue to monitor. (5) Elevat
[2023-03-25] MEDS: GABAPENTIN 300 MG CAPSULE PO (20:35)
[2023-03-26] VITALS (10 sets, daily range): BP systolic 111–125; BP diastolic 48–64; PULSE 101–109; RESP 16–18; TEMP 36.2–37.1; O2SAT 92–98
[2023-03-26] MEDS: diazePAM (*CRX) 2 MG TABLET 3 MG PO ×3 (01:30→17:56)
[2023-03-26 05:32] LABS: Basophils Percent Auto 0.2 % (0.2-1.2); Eosinophils Percent Auto 0.1 % (0-4.4); Hematocrit 23.5 % (37.0-47.0); Hemoglobin 7.3 g/dL (12.0-15.0); Immature Granulocyte Absolute 0.12 K/mm3 (0.00-0.031); Immature Granulocyte Percent A 0.7 % (0-0.5); Lymphocytes Absolute Auto 0.85 K/mm3 (0.9-3.2); Lymphocytes Percent Auto 4.9 % (18.3-44.2); Mean Corpuscular HGB Conc 31.1 g/dl (32-36); Mean Corpuscular Hemoglobin 26.7 pg (26-34); Mean Corpuscular Volume 86.1 fl (80-100); Monocytes Absolute Auto 1.3 K/mm3 (0.1-0.6); Monocytes Percent Auto 7.3 % (2.6-8.5); Neutrophils Absolute Auto 15.2 K/mm3 (1.3-6.7); Neutrophils Percent Auto 86.8 % (45.5-73.1); Platelet Count Result 337 k/mm3 (150-375); Red Blood Count 2.73 M/mm3 (4.2-5.4); Red Cell Distribution Width 15.9 % (11.5-14.5); White Blood Count 17.5 K/mm3 (4.5-10.0)
[2023-03-26 05:42] LABS: Alanine Aminotransferase 45 U/L (6-35); Albumin Level 2.8 g/dL (3.5-5.1); Alkaline Phosphatase 197 U/L (38-126); Anion Gap 7 mmol/L (8-16); Aspartate Amino Transferase 53 U/L (14-36); Bilirubin,Total 0.5 mg/dL (0.2-1.3); Blood Urea Nitrogen 12 mg/dL (7-17); Calcium 8.2 mg/dL (8.4-10.2); Carbon Dioxide 26 mmol/L (22-30); Chloride 99 mmol/L (98-107); Estimated CRCL calculation 49 ml/min; Estimated Glomerular Filt Rate > 60; Glucose 84 mg/dL (65-110); Magnesium 1.9 mg/dL (1.6-2.3); Phosphorus 3.6 mg/dL (2.5-4.5); Potassium 4.2 mmol/L (3.4-5.0); Sodium 132 mmol/L (137-145)
[2023-03-26] MEDS: PIPERACILLN/TAZ 3.375GM/NS50ML 3.375 GM/50 ML BAG IVPB ×3 (06:04→17:58)
[2023-03-26] MEDS: LEVOTHYROXINE SODIUM 50 MCG TABLET PO (06:05)
[2023-03-26] MEDS: HYDROcodone/acetaminophen (*CRX) 10-325 MG TABLET 1 TAB PO ×2 (06:08→15:13)
[2023-03-26] MEDS: METOPROLOL TARTRATE 12.5 MG TABLET 37.5 MG PO ×2 (08:34→20:57)
[2023-03-26] MEDS: ENOXAPARIN 40 MG/0.4 ML SYRINGE SUB-Q (08:35)
[2023-03-26] MEDS: ATORVASTATIN 40 MG TABLET PO (08:35)
[2023-03-26] MEDS: CITALOPRAM HYDROBROMIDE 20 MG TABLET PO (08:35)
[2023-03-26] MEDS: lamoTRIgine 100 MG TABLET PO ×2 (08:35→17:56)
[2023-03-26] MEDS: CITALOPRAM HYDROBROMIDE 10 MG TABLET PO (08:35)
[2023-03-26] MEDS: ASPIRIN 81 MG CHEWABLE TABLET PO (08:35)
[2023-03-26] MEDS: PANTOPRAZOLE 40 MG TABLET PO (08:35)
[2023-03-26] MEDS: LACTATED RINGERS 1,000 ML 60 ML IV CONT (09:15)
[2023-03-26] MEDS: FLUTICASONE/SALMETEROL 45-21 MCG INHALER 1 PUFF 2 PUFF INHALATION ×2 (09:46→20:30)
--- NOTE | 2023-03-26 14:00 | PM.PNGS ---
Progress Note: A&P Assessment and Plan (1) Small bowel obstruction: Code(s): K56.609 - Unspecified intestinal obstruction, unspecified as to partial versus complete obstruction Status: Acute Assessment and Plan: Ileostomy output has improved since irrigation yesterday. Abdominal pain and nausea has improved. She is tolerating oral intake better this morning. Will go ahead and advance to a full liquid diet and stop her IV fluids. (2) Ileostomy status: Code(s): Z93.2 - Ileostomy status Status: Acute Assessment and Plan: Ileostomy is pink and viable with better output today. Necrotic umbilical wound s/p excisional debridement at the bedside yesterday. Continue local wound care with silver rope dressing changes covered by a duoderm to provide a seal for the ostomy bag. (3) Acute urinary retention: Code(s): R33.8 - Other retention of urine Status: Acute Assessment and Plan: Sosa catheter in place after findings on CT of marked bladder distention with mild right hydronephrosis. (4) Bowel perforation: Code(s): K63.1 - Perforation of intestine (nontraumatic) Status: Acute Assessment and Plan: Status post colectomy with placement of permanent end ileostomy due to necrotic colon. WBC trending up over the past few days with a fever two nights ago. Repeat blood cx drawn yesterday. Chest x-ray showed bilateral lower lung opacities suggesting more likely atelectasis than pneumonia. WBC up to 17.5 today. Will add a UA with reflex culture from her urinary catheter. May need to consider adding an antifungal if there is yeast present. CT two days ago showed a small bowel obstruction but no intraabdominal fluid collections. Necrotic umbilical wound was without any purulent drainage and no surrounding erythema to suggest a wound infection. Will continue local wound care and close monitoring. No fevers today. Continue IV Zosyn. Repeat labs again tomorrow. Plan I have discussed the patient's case and plan of care with Dr. Kim. Subjective Subjective Date/Time Seen: 03/26/23 12:00 Patient reports: no new complaints, feels better and pain is less Interval history: 03/09/23 - Exploratory laparotomy with total colectomy by Dr. Kim due to findings of a totally necrotic colon 03/12/23 - second look exploratory laparotomy, completion sigmoid colectomy, segmental small bowel resection, placement of end ileostomy, and abdominal wall closure by Dr. Kim Patient sitting in the chair. She reports feeling much better today. Denies any abdominal pain or nausea today. She is drinking more this morning. She does not like many of the items on the clear liquid tray and is requesting to advance her diet as she is hungry and wanting to try eating. Her ileostomy output has increased in the past 24 hours. She already had 150 cc out this morning when I changed her ileostomy bag. No more fevers since 2 nights ago. WBC count up again today to 17.5. Ricky any shortness of breath, chest pain, cough, or any other complaints. Review of Systems Review of Systems: All systems reviewed & are unremarkable except as noted in HPI and below Exam Const: General: comfortable and no acute distress Orientation/consciousness: patient oriented x3 GI: Inspection: other (mildly distended) GI Palp: Yes Soft to palpation, Yes Tenderness to palpation present (GI) (diffusely tender), No Guarding due to palpation present (GI) and No Rebound tenderness present Auscultation: normal bowel sounds Other: Midline incision with vineet intact and duoderm dressing in place. Entire dressing and ileostomy bag removed to reassess the umbilical wound. The wound appears stable with still some dark haile necrotic tissue at the umbilicus, slightly rn clinician in color today. The wound extends to the incision with some pale necrotic skin but edges are still intact without separation. No surrounding erythema. There was some cloudy serosanguineous
--- NOTE | 2023-03-26 14:36 | PM.IMPN ---
Progress Note: A&P Assessment and Plan (1) Bowel perforation: Code(s): K63.1 - Perforation of intestine (nontraumatic) Status: Acute Assessment and Plan: 03/09:? Initial CT scan of the abdomen/pelvis at the outside hospital ER did not show any perforation or free air does dilated and thickened colon suggestive of enterocolitis 03/09: Repeat CT scan abdomen pelvis at [facility] ICU was performed because of abdominal distension and rigid abdomen which showed interval development of free air in the abdomen with likely perforation somewhere near the cecum. Patient underwent ex lap with total colectomy:? According to the operative notes the whole colon from the terminal ileum all the way down to the mid sigmoid colon was totally necrotic.? Patient had total colectomy.? On the OR table patient was very unstable with significantly low blood pressure, and tachycardia, the fascia was left approximated abdominal was closed with vineet in the skin and was transferred to the ICU Patient was taken to the OR for closure of her abdomen 03/12/2023.? Patient was given 1 unit of FFP and vitamin K on 03/11.? 03/12:? Status post ?Second look exploratory laparotomy, completion sigmoid colectomy, segmental small bowel resection, placement of end ileostomy, and abdominal wall closure. Surgery following closely Ostomy has good output NG tube clamped and patient tolerated this well. NG tube removed 03/20 Speech therapy saw the patient 03/19 and recommended pureed level 4 diet with thin liquids. Diet advanced per General surgery. Pureed consistency added Removed central line and Sosa 03/21. PT/OT started. More abd pain to the RLQ. Repeat CT Abd/Pelvis 03/24: S/P interval colectomy with ileostomy, extensive small bowel dilatation and gastric distention without transition point at the right mid abdomen c/w SBO, moderate abdominopelvic ascites, diffuse mesenteric edema, small bilateral pleural effusions with bibasilar atelectatic change, mild right hydronephrosis, distended bladder and fluid in the endometrial cavity versus prominent endometrium. Ostomy was flushed. Diet changed to clears. IVF started. Anasarca noted. Albumin 2.7. Diuresis when diet advanced and she is improving WBC higher today but no fevers. She remains on Zosyn. CXR showing atelectasis. BCx 03/25: pending Improved stool output. Diet advanced to Full Liquid Sosa placed for urine retention. Renal function normal. Should improve the mild hydronephrosis. (2) Small bowel obstruction: Code(s): K56.609 - Unspecified intestinal obstruction, unspecified as to partial versus complete obstruction Status: Acute Assessment and Plan: As above (3) Acute urinary retention: Code(s): R33.8 - Other retention of urine Status: Acute Assessment and Plan: Sosa placed 03/24/23. Sosa trial when more up and around (4) Septic shock: Code(s): A41.9 - Sepsis, unspecified organism; R65.21 - Severe sepsis with septic shock Status: Acute Assessment and Plan: Patient presented with hypotension, shortness of breath, acute kidney injury, found to have Acute surgical abdomen secondary to perforated bowel s/p Exploratory laparotomy with total colectomy for Necrotic colon with perforation, OFF ALL PRESSORS -maintain MAP > 65 mmHg are SBP > 100 mmHg at all times for adequate end organ perfusion -03/10: left femoral arterial line was placed -currently on maintenance fluids LR follow-up insensible fluid loss, as she had a lot of drainage from abdominal incision and NG tube - -improved urine output with normalization of her creatinine and lactic acidosis -BCx 03/09: negative -Sputum Cx 03/10: budding yeast with pseudohyphae -BCx 03/15: negative -status post vancomycin -off stress dose steroids -Zosyn (03/09) stopped 03/19/23 Patient remains afebrile but WBC remained elevated so Zosyn resumed 03/20/23 WBC up to 17.5K but fevers resolved. Abx per GenSurg Continue to
[2023-03-26 15:52] LABS: Appearance Urine Cloudy (Clear); Bacteria Urine None Seen /hpf; Bilirubin Urine Negative (Negative); Blood Urine 2+ (Negative); Color Urine Yellow (Yellow); Glucose Urine UA Negative (Negative); Ketones Urine Negative (Negative); Leukocyte Esterase Ur Negative LEU/UL (Negative); Need Manual Microscopic Reviewed; Nitrate Urine Negative (Negative); Non Pathogenic Casts 0-2; Protein Urine 2+ mg/dL (Negative); Specific Grav Ur 1.035 (1.001-1.035); Squamous Epithelial Cell Urine None seen /hpf (Few); Urobilinogen Urine 0.2 mg/dL (<2.0); pH Urine 5.5 (5.0-9.0)
[2023-03-26 15:58] LABS: Add Urine Microscopic? YES
--- NOTE | 2023-03-26 17:32 | PC.NURSE ---
This nurse got report from Kayla in the ICU at 1630 about this pt.
--- NOTE | 2023-03-26 17:32 | PC.NURSE ---
This patient, Jeanne Fragoso, was transferred to [[id number] ] on 03/26/23 at 1732. Personal belongings sent with patient. Report given to [ANDREW Henriquez @[id number] ]. Appropriate documentation sent with patient.
--- NOTE | 2023-03-26 17:44 | PC.NURSE ---
This patient, Jeanne Fragoso, was received from [[facility]] on 03/26/23 at 1740. Patient/family oriented to unit policies and routines
[2023-03-26] MEDS: ONDANSETRON INJ 4 MG/2 ML VIAL IV PUSH (18:25)
[2023-03-26] MEDS: GABAPENTIN 300 MG CAPSULE PO (20:59)
[2023-03-27] MEDS: PIPERACILLN/TAZ 3.375GM/NS50ML 3.375 GM/50 ML BAG IVPB ×4 (00:55→18:02)
[2023-03-27] MEDS: diazePAM (*CRX) 2 MG TABLET 3 MG PO ×3 (01:01→18:04)
[2023-03-27 05:13] VITALS: BP 123/58; PULSE 115; RESP 24; TEMP 36.4; O2SAT 93
[2023-03-27] MEDS: ONDANSETRON INJ 4 MG/2 ML VIAL IV PUSH (05:22)
[2023-03-27 06:25] LABS: Basophils Percent Auto 0.1 % (0.2-1.2); Eosinophils Percent Auto 0.1 % (0-4.4); Hematocrit 24.9 % (37.0-47.0); Hemoglobin 7.5 g/dL (12.0-15.0); Immature Granulocyte Absolute 0.09 K/mm3 (0.00-0.031); Immature Granulocyte Percent A 0.7 % (0-0.5); Lymphocytes Absolute Auto 0.56 K/mm3 (0.9-3.2); Lymphocytes Percent Auto 4.1 % (18.3-44.2); Mean Corpuscular HGB Conc 30.1 g/dl (32-36); Mean Corpuscular Hemoglobin 26.6 pg (26-34); Mean Corpuscular Volume 88.3 fl (80-100); Mean Platelet Volume 11.2 fl (7.4-10.4); Neutrophils Absolute Auto 11.9 K/mm3 (1.3-6.7); Platelet Count Result 366 k/mm3 (150-375); Red Blood Count 2.82 M/mm3 (4.2-5.4); Red Cell Distribution Width 15.8 % (11.5-14.5); White Blood Count 13.6 K/mm3 (4.5-10.0)
[2023-03-27 06:41] LABS: Anion Gap 4 mmol/L (8-16); Blood Urea Nitrogen 11 mg/dL (7-17); Calcium 8.7 mg/dL (8.4-10.2); Carbon Dioxide 29 mmol/L (22-30); Chloride 98 mmol/L (98-107); Estimated CRCL calculation 47 ml/min; Estimated Glomerular Filt Rate > 60; Glucose 79 mg/dL (65-110); Potassium 4.3 mmol/L (3.4-5.0); Sodium 131 mmol/L (137-145)
[2023-03-27 09:27] VITALS: PULSE 114
[2023-03-27] MEDS: METOPROLOL TARTRATE 12.5 MG TABLET 37.5 MG PO ×2 (09:27→21:08)
[2023-03-27] MEDS: lamoTRIgine 100 MG TABLET PO ×2 (09:31→18:03)
[2023-03-27] MEDS: PANTOPRAZOLE 40 MG TABLET PO (09:31)
[2023-03-27] MEDS: ASPIRIN 81 MG CHEWABLE TABLET PO (09:31)
[2023-03-27] MEDS: CITALOPRAM HYDROBROMIDE 20 MG TABLET PO (09:31)
[2023-03-27] MEDS: ENOXAPARIN 40 MG/0.4 ML SYRINGE SUB-Q (09:31)
[2023-03-27] MEDS: ATORVASTATIN 40 MG TABLET PO (09:32)
[2023-03-27] MEDS: CITALOPRAM HYDROBROMIDE 10 MG TABLET PO (09:32)
[2023-03-27] MEDS: FLUTICASONE/SALMETEROL 45-21 MCG INHALER 1 PUFF 2 PUFF INHALATION ×2 (10:16→22:06)
[2023-03-27 10:17] VITALS: O2SAT 93
--- NOTE | 2023-03-27 11:05 | PCNFU ---
Nutrition Follow-Up Complete: Inadequate energy intake related to altered GI function, mechanical ventilation as evidenced by need for trophic tube feeding - Resolved New Nutrition Problem: Inadequate oral intake related to loss of appetite, GI function as evidenced by poor intakes Meet estimated nutrition needs when medically able - progressing Goal: Pt current nutrition is Full liquids. Ensure Enlive TID for additional 350 kcal and 20 g protein each. Nutrition recommendation: Magic cup TID for additional 290 kcal and 9 g protein each. Last recorded weight is 47.1 kg. Bowel Motility:450 ml out of ostomy. Improved Labs Reviewed: Hgb 7.5, Hct 24.9, Na 131 Meds Noted: Zofran, protonix, zosyn Skin: Incision Additional Notes: Just advanced to full liquids this morning, did not eat breakfast. Sleeping when seen. Discharge planning to SNF Monitoring plan of care, tube feeding orders, weights, labs Following daily in ICU rounds, reassess every Saturday and Saturday per policy
--- NOTE | 2023-03-27 12:39 | PM.PNGS ---
Progress Note: A&P Assessment and Plan (1) Small bowel obstruction: Code(s): K56.609 - Unspecified intestinal obstruction, unspecified as to partial versus complete obstruction Status: Acute Assessment and Plan: Ileostomy output better over the past 24 hours, but patient began to have nausea again today and reports an episode of vomiting last night. Will get an obstructive series now. Add Reglan IV 10 mg Q6H. Will start gentle IV fluids since she is not tolerating oral intake. May need to consider NG placement and make her NPO if she continues vomiting or has significant gastric distention. (2) Ileostomy status: Code(s): Z93.2 - Ileostomy status Status: Acute Assessment and Plan: Ileostomy is pink and viable. Continue local wound care for umbilical wound with silver rope dressing changes covered by a duoderm to provide a seal for the ostomy bag. (3) Acute urinary retention: Code(s): R33.8 - Other retention of urine Status: Acute Assessment and Plan: Continue Sosa catheter for now. (4) Bowel perforation: Code(s): K63.1 - Perforation of intestine (nontraumatic) Status: Acute Assessment and Plan: Status post colectomy with placement of permanent end ileostomy due to necrotic colon. UA not suggestive of UTI. Reflex culture pending. WBC down today to 13.7 and fever resolved. Continue IV Zosyn. Trend labs. Plan I have discussed the patient's case and plan of care with Dr. Kim. Subjective Subjective Date/Time Seen: 03/27/23 12:39 Patient reports: nausea and afebrile Interval history: Patient seen today. She is not feeling well. She reports nausea and states she had one episode of vomiting last night. This is not documented and nursing was not told in report about any vomiting. She did get zofran early this morning that helped some. She has refused her full liquid trays and is now not drinking or eating much again. It does not appear that she is taking in the supplements ordered either. She had better ostomy output yesterday with 450 from her ileostomy. This morning her ileostomy bag is full of liquid and some thick material that passed as well. She denies any abdominal pain or bloating. No other complaints at this time. Exam Const: General: no acute distress and uncomfortable Nutritional Appearance: thin Orientation/consciousness: patient oriented x3 GI: Inspection: non-distended GI Palp: Yes Soft to palpation, Yes Tenderness to palpation present (GI) (diffusely tender), No Guarding due to palpation present (GI) and No Rebound tenderness present Auscultation: Hypoactive bowel sounds present Other: Midline incision with vineet intact and duoderm dressing dry and in place. The areas of the incision that are visible appear dry with no surrounding erythema, still a small area of skin necrosis that is dry and firm at the bottom of the incision. Ileostomy with bag nearly full of liquid output and some solid green soft material that passed through the stoma. Stoma is pink and viable. Urinary Catheter: Urinary Catheter: patent and draining Extrem: General: no calf tenderness and edema (trace bilateral lower extremity edema) Objective Data Vital Signs Vital Signs: Vital Signs - 24 hr 03/26/23 15:49 03/26/23 17:57 03/26/23 20:30 Temperature 97.8 F 97.9 F Pulse Rate 109 H 109 H 109 H Respiratory Rate 18 16 Blood Pressure 125/54 L 118/52 L Pulse Oximetry 96 96 92 Oxygen Delivery Room Air 03/26/23 20:57 03/26/23 21:10 03/27/23 05:13 Temperature 97.1 F L 97.6 F Pulse Rate 109 H 108 H 115 H Respiratory Rate 18 24 H Blood Pressure 116/48 L 123/58 L Pulse Oximetry 95 93 Oxygen Delivery 03/27/23 09:27 03/27/23 10:17 Temperature Pulse Rate 114 H Respiratory Rate Blood Pressure Pulse Oximetry 93 Oxygen Delivery Room Air Intake/Output Intake/Output: Intake & Output 03/24/23 03/25/23 03/26/23 03/27/23 23:59 23:5
[2023-03-27] MEDS: LACTATED RINGERS 1,000 ML 60 ML IV CONT (13:21)
[2023-03-27 14:00] VITALS: BP 106/63; PULSE 100; RESP 20; TEMP 36.6; O2SAT 96
--- NOTE | 2023-03-27 16:23 | PM.IMPN ---
Progress Note: A&P Assessment and Plan (1) Bowel perforation: Code(s): K63.1 - Perforation of intestine (nontraumatic) Status: Acute Assessment and Plan: 03/09:? Initial CT scan of the abdomen/pelvis at the outside hospital ER did not show any perforation or free air does dilated and thickened colon suggestive of enterocolitis 03/09: Repeat CT scan abdomen pelvis at [facility] ICU was performed because of abdominal distension and rigid abdomen which showed interval development of free air in the abdomen with likely perforation somewhere near the cecum. Patient underwent ex lap with total colectomy:? According to the operative notes the whole colon from the terminal ileum all the way down to the mid sigmoid colon was totally necrotic.? Patient had total colectomy.? On the OR table patient was very unstable with significantly low blood pressure, and tachycardia, the fascia was left approximated abdominal was closed with vineet in the skin and was transferred to the ICU Patient was taken to the OR for closure of her abdomen 03/12/2023.? Patient was given 1 unit of FFP and vitamin K on 03/11.? 03/12:? Status post ?Second look exploratory laparotomy, completion sigmoid colectomy, segmental small bowel resection, placement of end ileostomy, and abdominal wall closure. Surgery following closely Ostomy has good output NG tube clamped and patient tolerated this well. NG tube removed 03/20 Speech therapy saw the patient 03/19 and recommended pureed level 4 diet with thin liquids. Diet advanced per General surgery. Pureed consistency added Removed central line and Sosa 03/21. PT/OT started. More abd pain to the RLQ. Repeat CT Abd/Pelvis 03/24: S/P interval colectomy with ileostomy, extensive small bowel dilatation and gastric distention without transition point at the right mid abdomen c/w SBO, moderate abdominopelvic ascites, diffuse mesenteric edema, small bilateral pleural effusions with bibasilar atelectatic change, mild right hydronephrosis, distended bladder and fluid in the endometrial cavity versus prominent endometrium. Ostomy was flushed. Diet changed to clears. IVF started. Anasarca noted. Albumin 2.7. Diuresis when diet advanced and she is improving WBC higher today but no fevers. She remains on Zosyn. CXR showing atelectasis. BCx 03/25: pending Improved stool output. Diet advanced to Full Liquid Sosa placed for urine retention. Renal function normal. Should improve the mild hydronephrosis. 03/27: Patient now with ileus, NG tube to be placed by surgery, increased IV fluids, trial Reglan and Mylanta (2) Small bowel obstruction: Code(s): K56.609 - Unspecified intestinal obstruction, unspecified as to partial versus complete obstruction Status: Acute Assessment and Plan: As above (3) Acute urinary retention: Code(s): R33.8 - Other retention of urine Status: Acute Assessment and Plan: Sosa placed 03/24/23. Sosa trial when more up and around (4) Septic shock: Code(s): A41.9 - Sepsis, unspecified organism; R65.21 - Severe sepsis with septic shock Status: Acute Assessment and Plan: Patient presented with hypotension, shortness of breath, acute kidney injury, found to have Acute surgical abdomen secondary to perforated bowel s/p Exploratory laparotomy with total colectomy for Necrotic colon with perforation, OFF ALL PRESSORS -maintain MAP > 65 mmHg are SBP > 100 mmHg at all times for adequate end organ perfusion -03/10: left femoral arterial line was placed -currently on maintenance fluids LR follow-up insensible fluid loss, as she had a lot of drainage from abdominal incision and NG tube - -improved urine output with normalization of her creatinine and lactic acidosis -BCx 03/09: negative -Sputum Cx 03/10: budding yeast with pseudohyphae -BCx 03/15: negative -status post vancomycin -off stress dose steroids -Zosyn (03/09) stopped 03/19/23 Patient remains afebrile but WB
[2023-03-27] MEDS: METOCLOPRAMIDE HCL INJ 10 MG/2 ML VIAL IV PUSH (18:02)
[2023-03-27] MEDS: MAG HYDROX/AL HYDROX/SIMETH 30 ML UDC FEED TUBE ×2 (18:06→20:56)
[2023-03-27 20:00] VITALS: BP 143/57; PULSE 124; RESP 14; TEMP 36.6; O2SAT 97
[2023-03-27] MEDS: GABAPENTIN 300 MG CAPSULE PO (20:56)
[2023-03-27 21:08] VITALS: PULSE 124
[2023-03-28] VITALS (13 sets, daily range): BP systolic 107–145; BP diastolic 60–78; PULSE 95–122; RESP 14–22; TEMP 36.4–37.3; O2SAT 94–98
[2023-03-28] MEDS: PIPERACILLN/TAZ 3.375GM/NS50ML 3.375 GM/50 ML BAG IVPB ×5 (00:35→23:45)
[2023-03-28] MEDS: ACETAMINOPHEN ELIXIR 325 MG/10.15 ML UDC 650 MG FEED TUBE (00:36)
[2023-03-28] MEDS: METOCLOPRAMIDE HCL INJ 10 MG/2 ML VIAL IV PUSH ×3 (00:36→12:34)
[2023-03-28] MEDS: diazePAM (*CRX) 2 MG TABLET 3 MG PO (00:38)
[2023-03-28 00:55] LABS: Glucose Point of Care 74 mg/dl (65-105)
[2023-03-28] MEDS: DEXTROSE 50% 25 GM/50 ML SYRINGE IV PUSH (01:25)
[2023-03-28] MEDS: DEXTROSE 10% 1,000 ML 50 ML IV CONT (01:58)
[2023-03-28 02:16] LABS: Glucose Point of Care 142 mg/dl (65-105)
[2023-03-28] MEDS: MAG HYDROX/AL HYDROX/SIMETH 30 ML UDC FEED TUBE ×3 (05:21→21:59)
[2023-03-28] MEDS: LEVOTHYROXINE SODIUM 50 MCG TABLET PO (05:22)
[2023-03-28] MEDS: HYDROcodone/acetaminophen (*CRX) 10-325 MG TABLET 1 TAB PO (05:22)
[2023-03-28] MEDS: FLUTICASONE/SALMETEROL 45-21 MCG INHALER 1 PUFF 2 PUFF INHALATION ×2 (08:25→20:16)
[2023-03-28] MEDS: ATORVASTATIN 40 MG TABLET PO (09:43)
[2023-03-28] MEDS: lamoTRIgine 100 MG TABLET PO ×2 (09:43→16:35)
[2023-03-28] MEDS: METOPROLOL TARTRATE 12.5 MG TABLET 37.5 MG PO ×2 (09:43→21:59)
[2023-03-28] MEDS: CITALOPRAM HYDROBROMIDE 20 MG TABLET PO (09:43)
[2023-03-28] MEDS: CITALOPRAM HYDROBROMIDE 10 MG TABLET PO (09:43)
[2023-03-28] MEDS: PANTOPRAZOLE SODIUM IV 40 MG VIAL IV PUSH (09:46)
[2023-03-28] MEDS: ENOXAPARIN 40 MG/0.4 ML SYRINGE SUB-Q (09:46)
[2023-03-28] MEDS: ASPIRIN 81 MG CHEWABLE TABLET PO (09:57)
--- NOTE | 2023-03-28 10:27 | PC.NURSE ---
June, fro [facility], called for an update to keep patient active within their system. All questions answered. Prompted to call with any further questions or concerns.
--- NOTE | 2023-03-28 11:58 | PM.PNGS ---
Progress Note: A&P Assessment and Plan (1) Small bowel obstruction: Code(s): K56.609 - Unspecified intestinal obstruction, unspecified as to partial versus complete obstruction Status: Acute Assessment and Plan: Obstructive series yesterday showed a distended stomach and proximal duodenum, suggesting an ileus. NG was placed and she has had over a liter out since yesterday. She is feeling better with less nausea and her ileostomy had over 2 liters out yesterday. Will start tube feedings through her NG tube at 30 cc/hr per dietitian recommended TF. Stop the IV Reglan. She was switched to D10 @ 50 mL/hr last night due to a borderline low BS. Pending labs will decide further changes. (2) Ileostomy status: Code(s): Z93.2 - Ileostomy status Status: Acute Assessment and Plan: Ileostomy is pink and viable. Continue local wound care for umbilical wound with silver rope dressing changes covered by a duoderm to provide a seal for the ostomy bag. (3) Acute urinary retention: Code(s): R33.8 - Other retention of urine Status: Acute Assessment and Plan: Continue Sosa catheter for now. (4) Bowel perforation: Code(s): K63.1 - Perforation of intestine (nontraumatic) Status: Acute Assessment and Plan: Status post colectomy with placement of permanent end ileostomy due to necrotic colon. WBC count down yesterday, waiting for labs today. Continue IV Zosyn. Plan I have discussed the patient's case and plan of care with Dr. Kim. Subjective Subjective Date/Time Seen: 03/28/23 11:58 Patient reports: no new complaints, feels better and afebrile Interval history: Patient reports feeling better today. She denies any nausea or abdominal pain. She had 2,050 cc out of her ileostomy yesterday and another almost 500 cc out last night. NG has had about 1200 cc out since placement yesterday. She had no labs this morning, but I have placed orders. Review of Systems Review of Systems: All systems reviewed & are unremarkable except as noted in HPI and below Exam Const: General: comfortable and no acute distress Nutritional Appearance: thin Orientation/consciousness: patient oriented x3 GI: Inspection: non-distended GI Palp: Yes Soft to palpation, Yes Tenderness to palpation present (GI) (less tender today, now only incisional), No Guarding due to palpation present (GI) and No Rebound tenderness present Auscultation: normal bowel sounds Other: Midline incision with vineet intact and duoderm dressing dry and in place. The areas of the incision that are visible appear dry with no surrounding erythema, still a small area of skin necrosis that is dry and firm at the bottom of the incision. Ileostomy with liquid green/brown output in the bag. Stoma is pink and viable. Urinary Catheter: Urinary Catheter: patent and draining Extrem: General: no calf tenderness and edema (trace bilateral lower ext edema) Objective Data Vital Signs Vital Signs: Vital Signs - 24 hr 03/27/23 14:00 03/27/23 21:08 03/27/23 20:00 Temperature 97.8 F Pulse Rate 100 124 H Respiratory Rate 20 Blood Pressure 106/63 Pulse Oximetry 96 Oxygen Delivery Room Air 03/27/23 20:00 03/28/23 00:00 03/28/23 04:00 Temperature 97.8 F 97.6 F 98.1 F Pulse Rate 124 H 122 H 110 H Respiratory Rate 14 18 14 Blood Pressure 143/57 H 142/60 H 135/72 Pulse Oximetry 97 95 96 Oxygen Delivery 03/28/23 08:00 03/28/23 09:43 03/28/23 09:45 Temperature 97.9 F Pulse Rate 111 H 112 H Respiratory Rate 18 Blood Pressure 130/66 Pulse Oximetry 94 Oxygen Delivery Room Air Intake/Output Intake/Output: Intake & Output 03/25/23 03/26/23 03/27/23 03/28/23 23:59 23:59 23:59 23:59 Intake Total 200 2008 770 300 Output Total 1525 1075 3100 1375 Balance -1325 9 -3486 -8029 Meds/Results Medications: Active Medications Generic Name Dose Route Start Last Admin Trade Name Freq PRN
[2023-03-28 12:05] LABS: Glucose Point of Care 118 mg/dl (65-105)
[2023-03-28 12:44] LABS: Basophils Percent Auto 0.2 % (0.2-1.2); Eosinophils Absolute Auto 0.1 K/mm3 (0-0.3); Eosinophils Percent Auto 0.2 % (0-4.4); Hematocrit 21.6 % (37.0-47.0); Immature Granulocyte Absolute 0.14 K/mm3 (0.00-0.031); Immature Granulocyte Percent A 0.7 % (0-0.5); Lymphocytes Absolute Auto 0.72 K/mm3 (0.9-3.2); Lymphocytes Percent Auto 3.6 % (18.3-44.2); Mean Corpuscular HGB Conc 31.5 g/dl (32-36); Mean Corpuscular Hemoglobin 26.8 pg (26-34); Mean Platelet Volume 10.5 fl (7.4-10.4); Monocytes Absolute Auto 1.3 K/mm3 (0.1-0.6); Monocytes Percent Auto 6.3 % (2.6-8.5); Neutrophils Absolute Auto 17.9 K/mm3 (1.3-6.7); Platelet Count Result 351 k/mm3 (150-375); Red Blood Count 2.54 M/mm3 (4.2-5.4); Red Cell Distribution Width 15.4 % (11.5-14.5); White Blood Count 20.1 K/mm3 (4.5-10.0)
[2023-03-28 12:46] LABS: Hemoglobin 6.8 g/dL (12.0-15.0)
[2023-03-28 12:57] LABS: Platelet Estimate Adequate (Adequate)
[2023-03-28 12:58] LABS: Anisocytosis 1+ (NORMAL); Hypochromasia 2+ (NORMAL); Schistocytes None Seen (NORMAL)
[2023-03-28 13:01] LABS: Alanine Aminotransferase 31 U/L (6-35); Albumin Level 2.9 g/dL (3.5-5.1); Alkaline Phosphatase 180 U/L (38-126); Anion Gap 4 mmol/L (8-16); Aspartate Amino Transferase 37 U/L (14-36); Bilirubin,Total 0.4 mg/dL (0.2-1.3); Blood Urea Nitrogen 12 mg/dL (7-17); Calcium 8.5 mg/dL (8.4-10.2); Carbon Dioxide 31 mmol/L (22-30); Chloride 96 mmol/L (98-107); Estimated CRCL calculation 47 ml/min; Estimated Glomerular Filt Rate > 60; Glucose 120 mg/dL (65-110); Potassium 3.3 mmol/L (3.4-5.0); Sodium 131 mmol/L (137-145)
--- NOTE | 2023-03-28 13:15 | PCOTNOTE ---
Per RN, Patient is to be going down for a stat CT scan, hold off for therapy.
--- NOTE | 2023-03-28 13:45 | PCDIET ---
Physician consult for tube feedings. Plans for NGT feedings of Osmolite 1.5 goal rate at 45 ml/hr. Tube feeding providing 1485 kcals/62 gms protein/754 ml. Flush 30 ml q 4 hours. Will follow up every Saturday and Saturday.
[2023-03-28] MEDS: MICAFUNGIN SODIUM 100 MG in SODIUM CHLORIDE 0.9% IV 100 ML IVPB (14:36)
[2023-03-28] MEDS: POTASSIUM CHLORIDE INJ 40 MEQ in SODIUM CHLORIDE 0.9% IV 500 ML 130 MEQ IVPB (14:43)
[2023-03-28] MEDS: SODIUM CHLORIDE 0.9% IV 250 ML 30 ML IV CONT (17:02)
--- NOTE | 2023-03-28 18:17 | PM.IMPN ---
Progress Note: A&P Assessment and Plan (1) Bowel perforation: Code(s): K63.1 - Perforation of intestine (nontraumatic) Status: Acute Assessment and Plan: 03/09:? Initial CT scan of the abdomen/pelvis at the outside hospital ER did not show any perforation or free air does dilated and thickened colon suggestive of enterocolitis 03/09: Repeat CT scan abdomen pelvis at [facility] ICU was performed because of abdominal distension and rigid abdomen which showed interval development of free air in the abdomen with likely perforation somewhere near the cecum. Patient underwent ex lap with total colectomy:? According to the operative notes the whole colon from the terminal ileum all the way down to the mid sigmoid colon was totally necrotic.? Patient had total colectomy.? On the OR table patient was very unstable with significantly low blood pressure, and tachycardia, the fascia was left approximated abdominal was closed with vineet in the skin and was transferred to the ICU Patient was taken to the OR for closure of her abdomen 03/12/2023.? Patient was given 1 unit of FFP and vitamin K on 03/11.? 03/12:? Status post ?Second look exploratory laparotomy, completion sigmoid colectomy, segmental small bowel resection, placement of end ileostomy, and abdominal wall closure. Surgery following closely Ostomy has good output NG tube clamped and patient tolerated this well. NG tube removed 03/20 Speech therapy saw the patient 03/19 and recommended pureed level 4 diet with thin liquids. Diet advanced per General surgery. Pureed consistency added Removed central line and Sosa 03/21. PT/OT started. More abd pain to the RLQ. Repeat CT Abd/Pelvis 03/24: S/P interval colectomy with ileostomy, extensive small bowel dilatation and gastric distention without transition point at the right mid abdomen c/w SBO, moderate abdominopelvic ascites, diffuse mesenteric edema, small bilateral pleural effusions with bibasilar atelectatic change, mild right hydronephrosis, distended bladder and fluid in the endometrial cavity versus prominent endometrium. Ostomy was flushed. Diet changed to clears. IVF started. Anasarca noted. Albumin 2.7. Diuresis when diet advanced and she is improving WBC higher today but no fevers. She remains on Zosyn. CXR showing atelectasis. BCx 03/25: pending Improved stool output. Diet advanced to Full Liquid Sosa placed for urine retention. Renal function normal. Should improve the mild hydronephrosis. 03/27: Patient now with ileus, NG tube to be placed by surgery, increased IV fluids, trial Reglan and Mylanta 03/28: management per surgery, started on tube feeds, given 1 unit pRBCs, CT ordered (2) Small bowel obstruction: Code(s): K56.609 - Unspecified intestinal obstruction, unspecified as to partial versus complete obstruction Status: Acute Assessment and Plan: As above (3) Acute urinary retention: Code(s): R33.8 - Other retention of urine Status: Acute Assessment and Plan: Sosa placed 03/24/23. Sosa trial when more up and around (4) Septic shock: Code(s): A41.9 - Sepsis, unspecified organism; R65.21 - Severe sepsis with septic shock Status: Acute Assessment and Plan: Patient presented with hypotension, shortness of breath, acute kidney injury, found to have Acute surgical abdomen secondary to perforated bowel s/p Exploratory laparotomy with total colectomy for Necrotic colon with perforation, OFF ALL PRESSORS -maintain MAP > 65 mmHg are SBP > 100 mmHg at all times for adequate end organ perfusion -03/10: left femoral arterial line was placed -currently on maintenance fluids LR follow-up insensible fluid loss, as she had a lot of drainage from abdominal incision and NG tube - -improved urine output with normalization of her creatinine and lactic acidosis -BCx 03/09: negative -Sputum Cx 03/10: budding yeast with pseudohyphae -BCx 03/15: negative -status post vancomycin -off
[2023-03-28 18:45] LABS: Glucose Point of Care 118 mg/dl (65-105)
[2023-03-28] MEDS: GABAPENTIN 300 MG CAPSULE PO (21:59)
[2023-03-29] VITALS (7 sets, daily range): BP systolic 110–134; BP diastolic 60–69; PULSE 88–106; RESP 16–94; TEMP 36.4–37.1; O2SAT 93–98
[2023-03-29 00:29] LABS: Glucose Point of Care 119 mg/dl (65-105)
[2023-03-29 00:29] LABS: Hematocrit 27.2 % (37.0-47.0); Hemoglobin 8.6 g/dL (12.0-15.0)
[2023-03-29] MEDS: MAG HYDROX/AL HYDROX/SIMETH 30 ML UDC FEED TUBE ×3 (04:59→22:03)
[2023-03-29] MEDS: PIPERACILLN/TAZ 3.375GM/NS50ML 3.375 GM/50 ML BAG IVPB ×3 (05:00→17:16)
[2023-03-29] MEDS: LEVOTHYROXINE SODIUM 50 MCG TABLET PO (05:00)
[2023-03-29] MEDS: DEXTROSE 10% 1,000 ML 50 ML IV CONT (05:00)
[2023-03-29] MEDS: HYDROcodone/acetaminophen (*CRX) 10-325 MG TABLET 1 TAB PO ×2 (05:00→22:02)
[2023-03-29 06:39] LABS: Glucose Point of Care 115 mg/dl (65-105)
[2023-03-29 06:51] LABS: Basophils Absolute Auto 0.1 K/mm3 (0.0-0.1); Basophils Percent Auto 0.3 % (0.2-1.2); Eosinophils Absolute Auto 0.1 K/mm3 (0-0.3); Eosinophils Percent Auto 0.3 % (0-4.4); Hematocrit 28.6 % (37.0-47.0); Hemoglobin 8.9 g/dL (12.0-15.0); Immature Granulocyte Absolute 0.34 K/mm3 (0.00-0.031); Immature Granulocyte Percent A 1.6 % (0-0.5); Lymphocytes Absolute Auto 0.79 K/mm3 (0.9-3.2); Lymphocytes Percent Auto 3.8 % (18.3-44.2); Mean Corpuscular HGB Conc 31.1 g/dl (32-36); Mean Corpuscular Hemoglobin 27.2 pg (26-34); Mean Corpuscular Volume 87.5 fl (80-100); Mean Platelet Volume 10.6 fl (7.4-10.4); Monocytes Absolute Auto 1.4 K/mm3 (0.1-0.6); Monocytes Percent Auto 6.6 % (2.6-8.5); Neutrophils Absolute Auto 18.2 K/mm3 (1.3-6.7); Neutrophils Percent Auto 87.4 % (45.5-73.1); Platelet Count Result 348 k/mm3 (150-375); Red Blood Count 3.27 M/mm3 (4.2-5.4); Red Cell Distribution Width 15.2 % (11.5-14.5); White Blood Count 20.8 K/mm3 (4.5-10.0)
[2023-03-29 07:00] LABS: Anion Gap 6 mmol/L (8-16); Blood Urea Nitrogen 9 mg/dL (7-17); Calcium 8.1 mg/dL (8.4-10.2); Carbon Dioxide 27 mmol/L (22-30); Chloride 100 mmol/L (98-107); Estimated CRCL calculation 52 ml/min; Estimated Glomerular Filt Rate > 60; Glucose 130 mg/dL (65-110); Potassium 3.6 mmol/L (3.4-5.0); Sodium 133 mmol/L (137-145)
[2023-03-29 08:03] LABS: Hypochromasia 1+ (NORMAL); Platelet Estimate Adequate (Adequate); Schistocytes None Seen (NORMAL)
[2023-03-29] MEDS: lamoTRIgine 100 MG TABLET PO ×2 (09:34→17:15)
[2023-03-29] MEDS: MICAFUNGIN SODIUM 100 MG in SODIUM CHLORIDE 0.9% IV 100 ML IVPB (09:34)
[2023-03-29] MEDS: ASPIRIN 81 MG CHEWABLE TABLET PO (09:34)
[2023-03-29] MEDS: CITALOPRAM HYDROBROMIDE 10 MG TABLET PO (09:34)
[2023-03-29] MEDS: CITALOPRAM HYDROBROMIDE 20 MG TABLET PO (09:35)
[2023-03-29] MEDS: METOPROLOL TARTRATE 12.5 MG TABLET 37.5 MG PO ×2 (09:35→22:02)
[2023-03-29] MEDS: ENOXAPARIN 40 MG/0.4 ML SYRINGE SUB-Q (09:36)
[2023-03-29] MEDS: ATORVASTATIN 40 MG TABLET PO (09:37)
[2023-03-29] MEDS: PANTOPRAZOLE SODIUM IV 40 MG VIAL IV PUSH (09:37)
--- NOTE | 2023-03-29 10:10 | PCNFU ---
Nutrition Follow-Up Complete: Inadequate energy intake related to altered GI function, mechanical ventilation as evidenced by need for trophic tube feeding - Resolved Altered GI function related to ileus as evidenced by need for full tube feeding Goal: Meet estimated nutrition needs when medically able - progressing with tube feeding Pt current nutrition is Tube feeding: Osmolite 1.5 @ goal rate 45 ml/h. Flush 30 ml q 4 hours. tolerating. Nutrition recommendation: Continue current tube feedings, advance PO as medically able Last recorded weight is 46.8 kg. Bowel Motility: +3 BMs 03/29/22 Labs Reviewed: Hgb 8.9, Hct 28.6, Na 133, Glu 130 Meds Noted: Zofran, protonix, Zofran Skin: Incision Additional Notes: Because of ileus, tube feeding was started. TOlerating well. Continue with current orders. Monitoring plan of care, tube feeding orders, weights, labs Following daily in ICU rounds, reassess every Saturday and Saturday per policy
--- NOTE | 2023-03-29 11:13 | WPDPN ---
Progress Note: A&P Assessment and Plan (1) Bowel perforation: Code(s): K63.1 - Perforation of intestine (nontraumatic) Status: Acute Assessment and Plan: Patient is clinically stable although her white blood cell count is still around 20,000. antifungal agent was started IV yesterday as she did culture out some yeast in her urine culture previously. CT scan abdomen pelvis with IV contrast done yesterday show no evidence retained intra-abdominal abscess. No abdominal abscess. Urinalysis does not appear to show any evidence of UTI. Continue Zosyn and micafungin. Continue supportive management. Will hold tube feeds this morning. Restart the Reglan IV and she was doing well with that previously tolerating tube feeds. Continue supportive management. Subjective Date/time seen: 03/29/23 11:13 Interval history: Patient remains clinically stable today. She did have a large residual 450cc in her stomach with the tube feeds so the tube feeds were held. She still had good output from her ileostomy about 400cc overnight. Output is nonbloody. She did receive 1unit packed red blood cells hemoglobin was 6.8. Hemoglobin this morning is increased down 8.9. She is awake and alert and answers questions appropriately. Exam GI: Other: The abdomen is soft and nondistended. Midline incision is intact with vineet in place. End ileostomy right upper quadrant is functioning well without any retraction or ischemia of the stoma. There is good output from the stoma. Superficial wound near the ostomy is cover with DuoDerm and there is no spreading cellulitis. Objective Data Vital Signs Vital Signs: Vital Signs - 24 hr 03/28/23 12:00 03/28/23 16:55 03/28/23 17:10 Temperature 37.0 C 37.2 C 37.1 C Pulse Rate 95 107 H 106 H Respiratory Rate 18 20 20 Blood Pressure 107/62 139/78 126/71 Pulse Oximetry 97 94 96 Oxygen Delivery 03/28/23 18:10 03/28/23 16:00 03/28/23 19:10 Temperature 37.2 C 37.2 C 37.3 C Pulse Rate 108 H 107 H 112 H Respiratory Rate 22 H 22 H 22 H Blood Pressure 141/71 H 139/78 144/67 H Pulse Oximetry 94 94 98 Oxygen Delivery 03/28/23 20:06 03/28/23 20:16 03/28/23 20:00 Temperature 37.3 C 37.3 C Pulse Rate 113 H 112 H 112 H Respiratory Rate 22 H 22 H Blood Pressure 145/66 H 144/67 H Pulse Oximetry 98 98 Oxygen Delivery 03/29/23 00:00 03/28/23 20:00 03/29/23 04:00 Temperature 36.4 C 37.1 C Pulse Rate 102 H 105 H Respiratory Rate 94 H 24 H Blood Pressure 119/68 133/69 Pulse Oximetry 95 95 93 Oxygen Delivery Room Air 03/29/23 08:00 03/29/23 09:35 Temperature 37.1 C Pulse Rate 105 H 106 H Respiratory Rate 18 Blood Pressure 119/61 Pulse Oximetry 96 Oxygen Delivery Intake/Output Intake/Output: Intake & Output 03/26/23 03/27/23 03/28/23 03/29/23 23:59 23:59 23:59 23:59 Intake Total 2007 906 808 5897 Output Total 1075 3100 1650 1550 Balance 560 -6615 -191 70 Meds/Results Medications: Active Medications Generic Name Dose Route Start Last Admin Trade Name Freq PRN Reason Stop Dose Admin Acetaminophen 650 mg 03/14/23 14:37 03/28/23 00:36 Acetaminophen Elixir 325 Mg/10.15 Ml Udc FEED TUBE 650 mg Q6H PRN Administration Mild Pain (1-3) or Fever Hydrocodone Bitart/Acetaminophen 1 tab 03/23/23 10:09 03/24/23 10:20 Hydrocodone/Acetaminophen (*Crx) 5-325 Mg Tablet PO 1 tab Q4H PRN Administration Pain Rated 4-6 Hydrocodone Bitart/Acetaminophen 1 tab 03/23/23 10:09 03/29/23 05:00 Hydrocodone/Acetaminophen (*Crx) 10-325 Mg Tablet PO 1 tab Q6H PRN Administration Pain Rated 7-10 Al Hydrox/Mg Hydrox/Simethicone 30 ml 03/27/23 14:35 03/29/23 04:59 Mag Hydrox/Al Hydrox/Simeth 30 Ml Udc FEED TUBE 30 ml Q8HR PARAS Administration Aspirin 81 mg 03/19/23 13:15 03/29/23 09:34 Aspirin 81 Mg Chewable Tablet PO 81 mg DAILY@0800 PARAS Administration Atorvastatin Calcium 40 mg 03/19/23 1
[2023-03-29] MEDS: METOCLOPRAMIDE HCL INJ 10 MG/2 ML VIAL IV PUSH ×2 (11:37→17:16)
[2023-03-29 11:54] LABS: Glucose Point of Care 144 mg/dl (65-105)
[2023-03-29] MEDS: ACETAMINOPHEN ELIXIR 325 MG/10.15 ML UDC 650 MG FEED TUBE (13:52)
--- NOTE | 2023-03-29 14:44 | PM.IMPN ---
Progress Note: A&P Assessment and Plan (1) Bowel perforation: Code(s): K63.1 - Perforation of intestine (nontraumatic) Status: Acute Assessment and Plan: 03/09:? Initial CT scan of the abdomen/pelvis at the outside hospital ER did not show any perforation or free air does dilated and thickened colon suggestive of enterocolitis 03/09: Repeat CT scan abdomen pelvis at [facility] ICU was performed because of abdominal distension and rigid abdomen which showed interval development of free air in the abdomen with likely perforation somewhere near the cecum. Patient underwent ex lap with total colectomy:? According to the operative notes the whole colon from the terminal ileum all the way down to the mid sigmoid colon was totally necrotic.? Patient had total colectomy.? On the OR table patient was very unstable with significantly low blood pressure, and tachycardia, the fascia was left approximated abdominal was closed with vineet in the skin and was transferred to the ICU Patient was taken to the OR for closure of her abdomen 03/12/2023.? Patient was given 1 unit of FFP and vitamin K on 03/11.? 03/12:? Status post ?Second look exploratory laparotomy, completion sigmoid colectomy, segmental small bowel resection, placement of end ileostomy, and abdominal wall closure. Surgery following closely Ostomy has good output NG tube clamped and patient tolerated this well. NG tube removed 03/20 Speech therapy saw the patient 03/19 and recommended pureed level 4 diet with thin liquids. Diet advanced per General surgery. Pureed consistency added Removed central line and Sosa 03/21. PT/OT started. More abd pain to the RLQ. Repeat CT Abd/Pelvis 03/24: S/P interval colectomy with ileostomy, extensive small bowel dilatation and gastric distention without transition point at the right mid abdomen c/w SBO, moderate abdominopelvic ascites, diffuse mesenteric edema, small bilateral pleural effusions with bibasilar atelectatic change, mild right hydronephrosis, distended bladder and fluid in the endometrial cavity versus prominent endometrium. Ostomy was flushed. Diet changed to clears. IVF started. Anasarca noted. Albumin 2.7. Diuresis when diet advanced and she is improving WBC higher today but no fevers. She remains on Zosyn. CXR showing atelectasis. BCx 03/25: pending Improved stool output. Diet advanced to Full Liquid Sosa placed for urine retention. Renal function normal. Should improve the mild hydronephrosis. 03/27: Patient now with ileus, NG tube to be placed by surgery, increased IV fluids, trial Reglan and Mylanta 03/28: management per surgery, started on tube feeds, given 1 unit pRBCs, CT ordered 03/29: started on micafungin 03/28. tube feeds held 03/29. monitor. (2) Small bowel obstruction: Code(s): K56.609 - Unspecified intestinal obstruction, unspecified as to partial versus complete obstruction Status: Acute Assessment and Plan: As above (3) Acute urinary retention: Code(s): R33.8 - Other retention of urine Status: Acute Assessment and Plan: Sosa placed 03/24/23. Sosa trial when more up and around (4) Septic shock: Code(s): A41.9 - Sepsis, unspecified organism; R65.21 - Severe sepsis with septic shock Status: Acute Assessment and Plan: Patient presented with hypotension, shortness of breath, acute kidney injury, found to have Acute surgical abdomen secondary to perforated bowel s/p Exploratory laparotomy with total colectomy for Necrotic colon with perforation, OFF ALL PRESSORS -maintain MAP > 65 mmHg are SBP > 100 mmHg at all times for adequate end organ perfusion -03/10: left femoral arterial line was placed -currently on maintenance fluids LR follow-up insensible fluid loss, as she had a lot of drainage from abdominal incision and NG tube - -improved urine output with normalization of her creatinine and lactic acidosis -BCx 03/09: negative -Sputum Cx 03/10: budding yeast with p
[2023-03-29 18:18] LABS: Glucose Point of Care 117 mg/dl (65-105)
[2023-03-29] MEDS: FLUTICASONE/SALMETEROL 45-21 MCG INHALER 1 PUFF 2 PUFF INHALATION (21:09)
[2023-03-29] MEDS: GABAPENTIN 300 MG CAPSULE PO (22:02)
[2023-03-30] VITALS (9 sets, daily range): BP systolic 115–126; BP diastolic 58–66; PULSE 91–105; RESP 12–18; TEMP 36.1–37.2; O2SAT 93–97
[2023-03-30] MEDS: PIPERACILLN/TAZ 3.375GM/NS50ML 3.375 GM/50 ML BAG IVPB ×4 (00:05→17:07)
[2023-03-30] MEDS: DEXTROSE 10% 1,000 ML 50 ML IV CONT (00:05)
[2023-03-30] MEDS: METOCLOPRAMIDE HCL INJ 10 MG/2 ML VIAL IV PUSH ×4 (00:11→17:07)
[2023-03-30] MEDS: FLUCONAZOLE 400 MG/NACL 200 ML 400 MG/200 ML BAG 100 MG IVPB (04:35)
[2023-03-30] MEDS: LEVOTHYROXINE SODIUM 50 MCG TABLET PO (05:56)
[2023-03-30] MEDS: MAG HYDROX/AL HYDROX/SIMETH 30 ML UDC FEED TUBE ×3 (05:56→21:19)
[2023-03-30 06:41] LABS: Glucose Point of Care 123 mg/dl (65-105)
[2023-03-30 06:43] LABS: Hematocrit 29.3 % (37.0-47.0); Mean Corpuscular HGB Conc 30.7 g/dl (32-36); Mean Corpuscular Hemoglobin 27.2 pg (26-34); Mean Corpuscular Volume 88.5 fl (80-100); Mean Platelet Volume 10.2 fl (7.4-10.4); Platelet Count Result 364 k/mm3 (150-375); Red Blood Count 3.31 M/mm3 (4.2-5.4); Red Cell Distribution Width 15.4 % (11.5-14.5); White Blood Count 16.2 K/mm3 (4.5-10.0)
[2023-03-30 07:13] LABS: Anion Gap 3 mmol/L (8-16); Blood Urea Nitrogen 10 mg/dL (7-17); Calcium 7.7 mg/dL (8.4-10.2); Carbon Dioxide 32 mmol/L (22-30); Chloride 97 mmol/L (98-107); Estimated CRCL calculation 52 ml/min; Estimated Glomerular Filt Rate > 60; Glucose 128 mg/dL (65-110); Magnesium 1.9 mg/dL (1.6-2.3); Phosphorus 1.8 mg/dL (2.5-4.5); Potassium 3.3 mmol/L (3.4-5.0); Sodium 132 mmol/L (137-145)
[2023-03-30 07:44] LABS: Band Neutrophils Percent 10 % (0-6); Eosinophils Absolute Manual 0.16 K/mm3 (0.02-0.5); Eosinophils Percent Manual 1 % (0-4); Lymphocytes Absolute Manual 1.13 K/mm3 (1.1-4.5); Monocytes Absolute Manual 0.64 K/mm3 (0.1-0.90); Monocytes Percent Manual 4 % (3-9); Neutrophils Absolute Manual 14.25 K/mm3 (1.7-7.2); Neutrophils Percent Manual 78 % (46-73); Platelet Estimate Adequate (Adequate); Total Cells Counted 100
[2023-03-30 07:45] LABS: Hypochromasia 1+ (NORMAL); Schistocytes None Seen (NORMAL)
[2023-03-30] MEDS: FLUTICASONE/SALMETEROL 45-21 MCG INHALER 1 PUFF 2 PUFF INHALATION ×2 (07:53→21:16)
[2023-03-30] MEDS: lamoTRIgine 100 MG TABLET PO ×2 (08:09→17:07)
[2023-03-30] MEDS: ASPIRIN 81 MG CHEWABLE TABLET PO (08:09)
[2023-03-30] MEDS: CITALOPRAM HYDROBROMIDE 20 MG TABLET PO (08:09)
[2023-03-30] MEDS: CITALOPRAM HYDROBROMIDE 10 MG TABLET PO (08:09)
[2023-03-30] MEDS: METOPROLOL TARTRATE 12.5 MG TABLET 37.5 MG PO ×2 (08:09→21:19)
[2023-03-30] MEDS: ATORVASTATIN 40 MG TABLET PO (08:10)
[2023-03-30] MEDS: PANTOPRAZOLE SODIUM IV 40 MG VIAL IV PUSH (08:14)
[2023-03-30] MEDS: ENOXAPARIN 40 MG/0.4 ML SYRINGE SUB-Q (08:14)
[2023-03-30] MEDS: MICAFUNGIN SODIUM 100 MG in SODIUM CHLORIDE 0.9% IV 100 ML IVPB (08:14)
[2023-03-30] MEDS: ACETAMINOPHEN ELIXIR 325 MG/10.15 ML UDC 650 MG FEED TUBE (10:47)
--- NOTE | 2023-03-30 11:26 | PM.PNGS ---
Progress Note: A&P Assessment and Plan (1) Bowel perforation: Code(s): K63.1 - Perforation of intestine (nontraumatic) Status: Acute Assessment and Plan: Patient continuing to slowly improve. Had postop ileus and NG was replaced earlier in the week. Ileostomy function returning and tolerating tube feeds without significant residuals. Will try removing NG today and starting full liquid diet with diet supplements. Remaining vineet to be removed today. WBC now trending down--on Zosyn, Micafungin, and Fluconazole (not sure why on 2 antifungals--second ordered by Hospitalist) (2) Ileostomy status: Code(s): Z93.2 - Ileostomy status Status: Acute Subjective Subjective Date/Time Seen: 03/30/23 11:26 Interval history: Ileostomy functioning. Pain improving. Tolerating tube feeds. Still very weak. Exam GI: Inspection: non-distended, incision (intact with vineet) and other (ileostomy pink and functioning) GI Palp: Yes Soft to palpation, No Tenderness to palpation present (GI) and No Guarding due to palpation present (GI) Objective Data Vital Signs Vital Signs: Vital Signs - 24 hr 03/29/23 12:00 03/29/23 16:00 03/29/23 20:00 Temperature 36.7 C 36.4 C L Pulse Rate 91 88 Respiratory Rate 18 18 Blood Pressure 110/64 118/69 Pulse Oximetry 96 98 98 Oxygen Delivery Room Air 03/29/23 20:00 03/30/23 04:00 03/30/23 07:53 Temperature 36.9 C 36.2 C L Pulse Rate 101 H 91 100 Respiratory Rate 16 18 Blood Pressure 134/60 115/59 L Pulse Oximetry 96 96 Oxygen Delivery 03/30/23 07:54 03/30/23 08:00 03/30/23 08:09 Temperature 37.2 C Pulse Rate 101 H 100 Respiratory Rate 18 Blood Pressure 123/59 L Pulse Oximetry 93 97 Oxygen Delivery Room Air 03/30/23 08:00 Temperature Pulse Rate Respiratory Rate Blood Pressure Pulse Oximetry Oxygen Delivery Room Air Intake/Output Intake/Output: Intake & Output 03/27/23 03/28/23 03/29/23 03/30/23 23:59 23:59 23:59 23:59 Intake Total 336 819 4971 1731 Output Total 3100 1650 1775 575 Balance -2330 681 364 9601 Meds/Results Medications: Active Medications Generic Name Dose Route Start Last Admin Trade Name Freq PRN Reason Stop Dose Admin Acetaminophen 650 mg 03/14/23 14:37 03/30/23 10:47 Acetaminophen Elixir 325 Mg/10.15 Ml Udc FEED TUBE 650 mg Q6H PRN Administration Mild Pain (1-3) or Fever Hydrocodone Bitart/Acetaminophen 1 tab 03/23/23 10:09 03/24/23 10:20 Hydrocodone/Acetaminophen (*Crx) 5-325 Mg Tablet PO 1 tab Q4H PRN Administration Pain Rated 4-6 Hydrocodone Bitart/Acetaminophen 1 tab 03/23/23 10:09 03/29/23 22:02 Hydrocodone/Acetaminophen (*Crx) 10-325 Mg Tablet PO 1 tab Q6H PRN Administration Pain Rated 7-10 Al Hydrox/Mg Hydrox/Simethicone 30 ml 03/27/23 14:35 03/30/23 05:56 Mag Hydrox/Al Hydrox/Simeth 30 Ml Udc FEED TUBE 30 ml Q8HR PARAS Administration Aspirin 81 mg 03/19/23 13:15 03/30/23 08:09 Aspirin 81 Mg Chewable Tablet PO 81 mg DAILY@0800 PARAS Administration Atorvastatin Calcium 40 mg 03/19/23 13:15 03/30/23 08:10 Atorvastatin 40 Mg Tablet PO 40 mg DAILY PARAS Administration Citalopram Hydrobromide 20 mg 03/15/23 09:00 03/30/23 08:09 Citalopram Hydrobromide 20 Mg Tablet PO 20 mg DAILY PARAS Administration Citalopram Hydrobromide 10 mg 03/15/23 09:00 03/30/23 08:09 Citalopram Hydrobromide 10 Mg Tablet PO 10 mg DAILY PARAS Administration Dextrose 12.5 gm 03/10/23 00:27 03/28/23 01:25 Dextrose 50% 25 Gm/50 Ml Syringe IV PUSH 12.5 gm PRN PRN Administration Hypoglycemia Protocol Enoxaparin Sodium 40 mg 03/22/23 09:00 03/30/23 08:14 Enoxaparin 40 Mg/0.4 Ml Syringe SUB-Q 40 mg DAILY PARAS Administration Gabapentin 300 mg 03/15/23 21:00 03/29/23 22:02 Gabapentin 300 Mg Capsule PO 300 mg HS PARAS Administration Glucagon 1 mg 03/10/23 00:27 Glucago
[2023-03-30] MEDS: HYDROcodone/acetaminophen (*CRX) 10-325 MG TABLET 1 TAB PO (11:45)
--- NOTE | 2023-03-30 12:00 | PC.NURSE ---
Attempted to remove vineet from abdominal incision, but patient unable to tolerate. Crying, requested I stop. Received [place] 10mg per NG for pain. Will reattempt.
[2023-03-30 14:04] LABS: Glucose Point of Care 137 mg/dl (65-105)
--- NOTE | 2023-03-30 14:48 | P.PNIM_ITS ---
Progress Note: A&P Assessment and Plan (1) Bowel perforation: Code(s): K63.1 - Perforation of intestine (nontraumatic) Status: Acute Assessment and Plan: 03/09:? Initial CT scan of the abdomen/pelvis at the outside hospital ER did not show any perforation or free air does dilated and thickened colon suggestive of enterocolitis 03/09: Repeat CT scan abdomen pelvis at [facility] ICU was performed because of abdominal distension and rigid abdomen which showed interval development of free air in the abdomen with likely perforation somewhere near the cecum. Patient underwent ex lap with total colectomy:? According to the operative notes the whole colon from the terminal ileum all the way down to the mid sigmoid colon was totally necrotic.? Patient had total colectomy.? On the OR table patient was very unstable with significantly low blood pressure, and tachycardia, the fascia was left approximated abdominal was closed with vineet in the skin and was transferred to the ICU Patient was taken to the OR for closure of her abdomen 03/12/2023.? Patient was given 1 unit of FFP and vitamin K on 03/11.? 03/12:? Status post ?Second look exploratory laparotomy, completion sigmoid colectomy, segmental small bowel resection, placement of end ileostomy, and abdominal wall closure. Surgery following closely Ostomy has good output NG tube clamped and patient tolerated this well. NG tube removed 03/20 Speech therapy saw the patient 03/19 and recommended pureed level 4 diet with thin liquids. Diet advanced per General surgery. Pureed consistency added Removed central line and Sosa 03/21. PT/OT started. More abd pain to the RLQ. Repeat CT Abd/Pelvis 03/24: S/P interval colectomy with ileostomy, extensive small bowel dilatation and gastric distention without transition point at the right mid abdomen c/w SBO, moderate abdominopelvic ascites, diffuse mesenteric edema, small bilateral pleural effusions with bibasilar atelectatic change, mild right hydronephrosis, distended bladder and fluid in the endometrial cavity versus prominent endometrium. Ostomy was flushed. Diet changed to clears. IVF started. Anasarca noted. Albumin 2.7. Diuresis when diet advanced and she is improving WBC higher today but no fevers. She remains on Zosyn. CXR showing atelectasis. BCx 03/25: pending Improved stool output. Diet advanced to Full Liquid Sosa placed for urine retention. Renal function normal. Should improve the mild hydronephrosis. 03/27: Patient now with ileus, NG tube to be placed by surgery, increased IV fluids, trial Reglan and Mylanta 03/28: management per surgery, started on tube feeds, given 1 unit pRBCs, CT ordered 03/29: started on micafungin 03/28. tube feeds held 03/29. monitor. 03/30: ng pulled, ADAT, leuk decreasing (2) Small bowel obstruction: Code(s): K56.609 - Unspecified intestinal obstruction, unspecified as to partial versus complete obstruction Status: Acute Assessment and Plan: As above (3) Acute urinary retention: Code(s): R33.8 - Other retention of urine Status: Acute Assessment and Plan: Sosa placed 03/24/23. Sosa trial when more up and around (4) Septic shock: Code(s): A41.9 - Sepsis, unspecified organism; R65.21 - Severe sepsis with septic shock Status: Acute Assessment and Plan: Patient presented with hypotension, shortness of breath, acute kidney injury, found to have Acute surgical abdomen secondary to perforated bowel s/p Exploratory laparotomy with total colectomy for Necrotic colon with perforation, OFF ALL PRESSORS -maintain MAP > 65 mmHg are SBP > 100 mmHg
[2023-03-30 18:02] LABS: Glucose Point of Care 107 mg/dl (65-105)
[2023-03-30] MEDS: GABAPENTIN 300 MG CAPSULE PO (21:20)
[2023-03-31] VITALS (10 sets, daily range): BP systolic 112–128; BP diastolic 54–66; PULSE 85–98; RESP 14–24; TEMP 36.5–36.9; O2SAT 93–97
[2023-03-31 00:11] LABS: Glucose Point of Care 95 mg/dl (65-105)
[2023-03-31] MEDS: METOCLOPRAMIDE HCL INJ 10 MG/2 ML VIAL IV PUSH ×4 (00:15→16:59)
[2023-03-31] MEDS: PIPERACILLN/TAZ 3.375GM/NS50ML 3.375 GM/50 ML BAG IVPB ×4 (00:15→17:05)
[2023-03-31] MEDS: DEXTROSE 10% 1,000 ML 50 ML IV CONT (00:27)
[2023-03-31] MEDS: MAG HYDROX/AL HYDROX/SIMETH 30 ML UDC FEED TUBE ×3 (05:14→20:54)
[2023-03-31] MEDS: LEVOTHYROXINE SODIUM 50 MCG TABLET PO (05:14)
[2023-03-31 06:17] LABS: Hemoglobin 9.6 g/dL (12.0-15.0); Mean Corpuscular Volume 87.3 fl (80-100); Mean Platelet Volume 10.3 fl (7.4-10.4); Platelet Count Result 429 k/mm3 (150-375); Red Blood Count 3.55 M/mm3 (4.2-5.4); Red Cell Distribution Width 15.6 % (11.5-14.5); White Blood Count 14.3 K/mm3 (4.5-10.0)
[2023-03-31 06:36] LABS: Anion Gap 3 mmol/L (8-16); Blood Urea Nitrogen 8 mg/dL (7-17); Calcium 8.1 mg/dL (8.4-10.2); Carbon Dioxide 34 mmol/L (22-30); Chloride 94 mmol/L (98-107); Estimated CRCL calculation 52 ml/min; Estimated Glomerular Filt Rate > 60; Glucose 97 mg/dL (65-110); Potassium 3.7 mmol/L (3.4-5.0); Sodium 131 mmol/L (137-145)
[2023-03-31 06:38] LABS: Glucose Point of Care 107 mg/dl (65-105)
[2023-03-31] MEDS: FLUTICASONE/SALMETEROL 45-21 MCG INHALER 1 PUFF 2 PUFF INHALATION ×2 (07:37→21:31)
[2023-03-31] MEDS: MICAFUNGIN SODIUM 100 MG in SODIUM CHLORIDE 0.9% IV 100 ML IVPB (08:57)
[2023-03-31] MEDS: PANTOPRAZOLE SODIUM IV 40 MG VIAL IV PUSH (08:58)
[2023-03-31] MEDS: ENOXAPARIN 40 MG/0.4 ML SYRINGE SUB-Q (08:58)
[2023-03-31] MEDS: ATORVASTATIN 40 MG TABLET PO (08:59)
[2023-03-31] MEDS: lamoTRIgine 100 MG TABLET PO ×2 (08:59→16:52)
[2023-03-31] MEDS: METOPROLOL TARTRATE 12.5 MG TABLET 37.5 MG PO ×2 (08:59→20:53)
[2023-03-31] MEDS: CITALOPRAM HYDROBROMIDE 20 MG TABLET PO (08:59)
[2023-03-31] MEDS: CITALOPRAM HYDROBROMIDE 10 MG TABLET PO (08:59)
[2023-03-31] MEDS: ASPIRIN 81 MG CHEWABLE TABLET PO (08:59)
[2023-03-31] MEDS: ONDANSETRON INJ 4 MG/2 ML VIAL IV PUSH (09:21)
--- NOTE | 2023-03-31 11:09 | PM.IMPN ---
Progress Note: A&P Assessment and Plan (1) Bowel perforation: Code(s): K63.1 - Perforation of intestine (nontraumatic) Status: Acute Assessment and Plan: 03/09:? Initial CT scan of the abdomen/pelvis at the outside hospital ER did not show any perforation or free air does dilated and thickened colon suggestive of enterocolitis 03/09: Repeat CT scan abdomen pelvis at [facility] ICU was performed because of abdominal distension and rigid abdomen which showed interval development of free air in the abdomen with likely perforation somewhere near the cecum. Patient underwent ex lap with total colectomy:? According to the operative notes the whole colon from the terminal ileum all the way down to the mid sigmoid colon was totally necrotic.? Patient had total colectomy.? On the OR table patient was very unstable with significantly low blood pressure, and tachycardia, the fascia was left approximated abdominal was closed with vineet in the skin and was transferred to the ICU Patient was taken to the OR for closure of her abdomen 03/12/2023.? Patient was given 1 unit of FFP and vitamin K on 03/11.? 03/12:? Status post ?Second look exploratory laparotomy, completion sigmoid colectomy, segmental small bowel resection, placement of end ileostomy, and abdominal wall closure. Surgery following closely Ostomy has good output NG tube clamped and patient tolerated this well. NG tube removed 03/20 Speech therapy saw the patient 03/19 and recommended pureed level 4 diet with thin liquids. Diet advanced per General surgery. Pureed consistency added Removed central line and Sosa 03/21. PT/OT started. More abd pain to the RLQ. Repeat CT Abd/Pelvis 03/24: S/P interval colectomy with ileostomy, extensive small bowel dilatation and gastric distention without transition point at the right mid abdomen c/w SBO, moderate abdominopelvic ascites, diffuse mesenteric edema, small bilateral pleural effusions with bibasilar atelectatic change, mild right hydronephrosis, distended bladder and fluid in the endometrial cavity versus prominent endometrium. Ostomy was flushed. Diet changed to clears. IVF started. Anasarca noted. Albumin 2.7. Diuresis when diet advanced and she is improving WBC higher today but no fevers. She remains on Zosyn. CXR showing atelectasis. BCx 03/25: pending Improved stool output. Diet advanced to Full Liquid Sosa placed for urine retention. Renal function normal. Should improve the mild hydronephrosis. 03/27: Patient now with ileus, NG tube to be placed by surgery, increased IV fluids, trial Reglan and Mylanta 03/28: management per surgery, started on tube feeds, given 1 unit pRBCs, CT ordered 03/29: started on micafungin 03/28. tube feeds held 03/29. monitor. 03/30: ng pulled, ADAT, leuk decreasing 03/31: improving (2) Small bowel obstruction: Code(s): K56.609 - Unspecified intestinal obstruction, unspecified as to partial versus complete obstruction Status: Acute Assessment and Plan: As above (3) Acute urinary retention: Code(s): R33.8 - Other retention of urine Status: Acute Assessment and Plan: Sosa placed 03/24/23. Sosa trial when more up and around (4) Septic shock: Code(s): A41.9 - Sepsis, unspecified organism; R65.21 - Severe sepsis with septic shock Status: Acute Assessment and Plan: Patient presented with hypotension, shortness of breath, acute kidney injury, found to have Acute surgical abdomen secondary to perforated bowel s/p Exploratory laparotomy with total colectomy for Necrotic colon with perforation, OFF ALL PRESSORS -maintain MAP > 65 mmHg are SBP > 100 mmHg at all times for adequate end organ perfusion -03/10: left femoral arterial line was placed -currently on maintenance fluids LR follow-up insensible fluid loss, as she had a lot of drainage from abdominal incision and NG tube - -improved urine output with normalization of her creatinine and lactic acidosis -BC
[2023-03-31] MEDS: HYDROcodone/acetaminophen (*CRX) 10-325 MG TABLET 1 TAB PO ×2 (11:30→20:56)
--- NOTE | 2023-03-31 11:30 | PCPTNOTE ---
Treatment not completed at this AM due to the patient not being able to stay awake. Will continue per PT plan of care.
--- NOTE | 2023-03-31 15:17 | PM.PNGS ---
Progress Note: A&P Assessment and Plan (1) Bowel perforation: Code(s): K63.1 - Perforation of intestine (nontraumatic) Status: Acute Assessment and Plan: Advance to regular diet with Ensure compact diet supplements WBC 14.3 today--on Zosyn and Micafungin Remaining vineet removed today (2) Ileostomy status: Code(s): Z93.2 - Ileostomy status Status: Acute Subjective Subjective Date/Time Seen: 03/31/23 15:17 Interval history: Tolerating full liquid diet. No nausea/vomiting. Exam GI: Inspection: non-distended, incision (vineet removed) and other (ileostomy pink and functioning) GI Palp: Yes Soft to palpation, No Tenderness to palpation present (GI) and No Guarding due to palpation present (GI) Objective Data Vital Signs Vital Signs: Vital Signs - 24 hr 03/30/23 16:00 03/30/23 21:18 03/30/23 20:00 Temperature 36.1 C L 37.0 C Pulse Rate 96 99 93 Respiratory Rate 18 12 Blood Pressure 115/66 117/65 Pulse Oximetry 95 97 Oxygen Delivery Fraction of Inspired Oxygen 03/30/23 20:00 03/31/23 00:00 03/31/23 04:00 Temperature 36.8 C 36.9 C Pulse Rate 95 88 Respiratory Rate 20 20 Blood Pressure 128/66 125/63 Pulse Oximetry 97 95 96 Oxygen Delivery Room Air Fraction of Inspired Oxygen 03/31/23 07:37 03/31/23 07:56 03/31/23 08:59 Temperature 36.6 C Pulse Rate 97 95 Respiratory Rate 24 H Blood Pressure 112/61 Pulse Oximetry 96 97 Oxygen Delivery Room Air Fraction of Inspired Oxygen 21 03/31/23 08:00 Temperature Pulse Rate Respiratory Rate Blood Pressure Pulse Oximetry Oxygen Delivery Room Air Fraction of Inspired Oxygen Intake/Output Intake/Output: Intake & Output 03/28/23 03/29/23 03/30/23 03/31/23 23:59 23:59 23:59 23:59 Intake Total 850 2301 2071 1770 Output Total 1650 1775 900 950 Balance -995 648 9443 820 Meds/Results Medications: Active Medications Generic Name Dose Route Start Last Admin Trade Name Freq PRN Reason Stop Dose Admin Acetaminophen 650 mg 03/14/23 14:37 03/30/23 10:47 Acetaminophen Elixir 325 Mg/10.15 Ml Udc FEED TUBE 650 mg Q6H PRN Administration Mild Pain (1-3) or Fever Hydrocodone Bitart/Acetaminophen 1 tab 03/23/23 10:09 03/24/23 10:20 Hydrocodone/Acetaminophen (*Crx) 5-325 Mg Tablet PO 1 tab Q4H PRN Administration Pain Rated 4-6 Hydrocodone Bitart/Acetaminophen 1 tab 03/23/23 10:09 03/31/23 11:30 Hydrocodone/Acetaminophen (*Crx) 10-325 Mg Tablet PO 1 tab Q6H PRN Administration Pain Rated 7-10 Al Hydrox/Mg Hydrox/Simethicone 30 ml 03/27/23 14:35 03/31/23 13:35 Mag Hydrox/Al Hydrox/Simeth 30 Ml Udc FEED TUBE 30 ml Q8HR PARAS Administration Aspirin 81 mg 03/19/23 13:15 03/31/23 08:59 Aspirin 81 Mg Chewable Tablet PO 81 mg DAILY@0800 PARAS Administration Atorvastatin Calcium 40 mg 03/19/23 13:15 03/31/23 08:59 Atorvastatin 40 Mg Tablet PO 40 mg DAILY PARAS Administration Citalopram Hydrobromide 20 mg 03/15/23 09:00 03/31/23 08:59 Citalopram Hydrobromide 20 Mg Tablet PO 20 mg DAILY PARAS Administration Citalopram Hydrobromide 10 mg 03/15/23 09:00 03/31/23 08:59 Citalopram Hydrobromide 10 Mg Tablet PO 10 mg DAILY PARAS Administration Dextrose 12.5 gm 03/10/23 00:27 03/28/23 01:25 Dextrose 50% 25 Gm/50 Ml Syringe IV PUSH 12.5 gm PRN PRN Administration Hypoglycemia Protocol Enoxaparin Sodium 40 mg 03/22/23 09:00 03/31/23 08:58 Enoxaparin 40 Mg/0.4 Ml Syringe SUB-Q 40 mg DAILY PARAS Administration Gabapentin 300 mg 03/15/23 21:00 03/30/23 21:20 Gabapentin 300 Mg Capsule PO 300 mg HS PARAS Administration Glucagon 1 mg 03/10/23 00:27 Glucagon For Inj 1 Mg Vial IM PRN PRN Hypoglycemia Protocol Glucose 15 gm 03/10/23 00:27 Glucose Oral Gel 15 Gm Of Glucse In 37.5 Gm Tube PO PRN PRN Hypoglycemia Protocol Hydralaz
[2023-03-31] MEDS: HYDROcodone/acetaminophen (*CRX) 5-325 MG TABLET 1 TAB PO (16:52)
[2023-03-31] MEDS: GABAPENTIN 300 MG CAPSULE PO (20:53)
[2023-04-01] VITALS (7 sets, daily range): BP systolic 92–123; BP diastolic 51–61; PULSE 89–109; RESP 12–16; TEMP 36.7–37.4; O2SAT 96–100
[2023-04-01] MEDS: DEXTROSE 10% 1,000 ML 50 ML IV CONT
[2023-04-01] MEDS: PIPERACILLN/TAZ 3.375GM/NS50ML 3.375 GM/50 ML BAG IVPB ×3 (05:37→12:38)
[2023-04-01] MEDS: LEVOTHYROXINE SODIUM 50 MCG TABLET PO (05:38)
[2023-04-01] MEDS: METOCLOPRAMIDE HCL INJ 10 MG/2 ML VIAL IV PUSH ×3 (05:38→12:36)
[2023-04-01] MEDS: FLUTICASONE/SALMETEROL 45-21 MCG INHALER 1 PUFF 2 PUFF INHALATION ×2 (08:35→19:21)
--- NOTE | 2023-04-01 09:37 | P.PNIM_ITS ---
Progress Note: A&P Assessment and Plan (1) Bowel perforation: Code(s): K63.1 - Perforation of intestine (nontraumatic) Status: Acute Assessment and Plan: 03/09:? Initial CT scan of the abdomen/pelvis at the outside hospital ER did not show any perforation or free air does dilated and thickened colon suggestive of enterocolitis 03/09: Repeat CT scan abdomen pelvis at [facility] ICU was performed because of abdominal distension and rigid abdomen which showed interval development of free air in the abdomen with likely perforation somewhere near the cecum. Patient underwent ex lap with total colectomy:? According to the operative notes the whole colon from the terminal ileum all the way down to the mid sigmoid colon was totally necrotic.? Patient had total colectomy.? On the OR table patient was very unstable with significantly low blood pressure, and tachycardia, the fascia was left approximated abdominal was closed with vineet in the skin and was transferred to the ICU Patient was taken to the OR for closure of her abdomen 03/12/2023.? Patient was given 1 unit of FFP and vitamin K on 03/11.? 03/12:? Status post ?Second look exploratory laparotomy, completion sigmoid colectomy, segmental small bowel resection, placement of end ileostomy, and abdominal wall closure. Surgery following closely Ostomy has good output NG tube clamped and patient tolerated this well. NG tube removed 03/20 Speech therapy saw the patient 03/19 and recommended pureed level 4 diet with thin liquids. Diet advanced per General surgery. Pureed consistency added Removed central line and Sosa 03/21. PT/OT started. More abd pain to the RLQ. Repeat CT Abd/Pelvis 03/24: S/P interval colectomy with ileostomy, extensive small bowel dilatation and gastric distention without transition point at the right mid abdomen c/w SBO, moderate abdominopelvic ascites, diffuse mesenteric edema, small bilateral pleural effusions with bibasilar atelectatic change, mild right hydronephrosis, distended bladder and fluid in the endometrial cavity versus prominent endometrium. Ostomy was flushed. Diet changed to clears. IVF started. Anasarca noted. Albumin 2.7. Diuresis when diet advanced and she is improving WBC higher today but no fevers. She remains on Zosyn. CXR showing atelectasis. BCx 03/25: pending Improved stool output. Diet advanced to Full Liquid Sosa placed for urine retention. Renal function normal. Should improve the mild hydronephrosis. Improving (2) Small bowel obstruction: Code(s): K56.609 - Unspecified intestinal obstruction, unspecified as to partial versus complete obstruction Status: Acute Assessment and Plan: As above (3) Acute urinary retention: Code(s): R33.8 - Other retention of urine Status: Acute Assessment and Plan: Sosa placed 03/24/23. Sosa trial when more up and around (4) Septic shock: Code(s): A41.9 - Sepsis, unspecified organism; R65.21 - Severe sepsis with septic shock Status: Acute Assessment and Plan: Patient presented with hypotension, shortness of breath, acute kidney injury, found to have Acute surgical abdomen secondary to perforated bowel s/p Exploratory laparotomy with total colectomy for Necrotic colon with perforation, OFF ALL PRESSORS -maintain MAP > 65 mmHg are SBP > 100 mmHg at all times for adequate end organ perfusion -03/10: left femoral arterial line was placed -currently on maintenance fluids LR follow-up insensible fluid loss, as she had a lot of drainage from abdominal incision and NG tube - -improved urine output with normalization of her creatinin
[2023-04-01] MEDS: MICAFUNGIN SODIUM 100 MG in SODIUM CHLORIDE 0.9% IV 100 ML IVPB (09:42)
[2023-04-01] MEDS: lamoTRIgine 100 MG TABLET PO ×2 (09:44→17:17)
[2023-04-01] MEDS: ATORVASTATIN 40 MG TABLET PO (09:44)
[2023-04-01] MEDS: METOPROLOL TARTRATE 12.5 MG TABLET 37.5 MG PO ×2 (09:45→20:45)
[2023-04-01] MEDS: CITALOPRAM HYDROBROMIDE 20 MG TABLET PO (09:45)
[2023-04-01] MEDS: CITALOPRAM HYDROBROMIDE 10 MG TABLET PO (09:45)
[2023-04-01] MEDS: ASPIRIN 81 MG CHEWABLE TABLET PO (09:46)
[2023-04-01] MEDS: ENOXAPARIN 40 MG/0.4 ML SYRINGE SUB-Q (09:46)
[2023-04-01] MEDS: PANTOPRAZOLE SODIUM IV 40 MG VIAL IV PUSH (09:46)
[2023-04-01] MEDS: HYDROcodone/acetaminophen (*CRX) 10-325 MG TABLET 1 TAB PO (12:42)
--- NOTE | 2023-04-01 13:04 | ECG_ITS ---
Measurements Intervals [place] Rate: 104 P: 68 FL: 155 QRS: 72 QRSD: 75 T: 101 QT: 313 QTc: 413 Interpretive Statements SINUS TACHYCARDIA BORDERLINE T WAVE ABNORMALITY- ANTEROLAT/HIGH LAT LEADS BASELINE ARTIFACT- V3 BORDERLINE ECG COMPARED TO ECG 03/19/2023 16:16:52 HEART RATE HAS DECREASED Electronically Signed On 04-01-2023 13:46:02 [employer]ESS by Jimmy Maynard D.O.
[2023-04-01 13:31] LABS: Basophils Absolute Auto 0.1 K/mm3 (0.0-0.1); Basophils Percent Auto 0.6 % (0.2-1.2); Eosinophils Absolute Auto 0.1 K/mm3 (0-0.3); Eosinophils Percent Auto 0.5 % (0-4.4); Hematocrit 32.8 % (37.0-47.0); Hemoglobin 9.7 g/dL (12.0-15.0); Immature Granulocyte Absolute 0.65 K/mm3 (0.00-0.031); Immature Granulocyte Percent A 3.8 % (0-0.5); Lymphocytes Absolute Auto 0.99 K/mm3 (0.9-3.2); Lymphocytes Percent Auto 5.7 % (18.3-44.2); Mean Corpuscular HGB Conc 29.6 g/dl (32-36); Mean Corpuscular Hemoglobin 26.9 pg (26-34); Mean Corpuscular Volume 90.9 fl (80-100); Mean Platelet Volume 10.1 fl (7.4-10.4); Monocytes Absolute Auto 1.3 K/mm3 (0.1-0.6); Monocytes Percent Auto 7.2 % (2.6-8.5); Neutrophils Absolute Auto 14.2 K/mm3 (1.3-6.7); Neutrophils Percent Auto 82.2 % (45.5-73.1); Platelet Count Result 482 k/mm3 (150-375); Red Blood Count 3.61 M/mm3 (4.2-5.4); Red Cell Distribution Width 15.8 % (11.5-14.5); White Blood Count 17.3 K/mm3 (4.5-10.0)
[2023-04-01 13:41] LABS: Anion Gap 7 mmol/L (8-16); Blood Urea Nitrogen 10 mg/dL (7-17); Calcium 7.9 mg/dL (8.4-10.2); Carbon Dioxide 28 mmol/L (22-30); Chloride 94 mmol/L (98-107); Estimated CRCL calculation 60 ml/min; Estimated Glomerular Filt Rate > 60; Glucose 123 mg/dL (65-110); Sodium 129 mmol/L (137-145)
[2023-04-01 13:52] LABS: Troponin I < 0.012 ng/mL (0.000-0.034)
[2023-04-01 14:16] LABS: Hypochromasia 1+ (NORMAL); Platelet Estimate Increased (Adequate); Schistocytes None Seen (NORMAL)
--- NOTE | 2023-04-01 15:30 | PM.PNGS ---
Progress Note: A&P Assessment and Plan (1) Bowel perforation: Code(s): K63.1 - Perforation of intestine (nontraumatic) Status: Acute Assessment and Plan: Tolerating a regular diet, encouraged increased PO intake and to continue taking in supplements. Will stop IV Reglan and Mylanta. Switch to oral antimicrobials. Stop IV Zosyn and micafungin, switch to Augmentin 875-125 mg PO Q12H and fluconazole 100 mg PO daily. Repeat labs tomorrow. Continue PT/OT. Plan is for patient to be discharged to [facility] hopefully in the next few days once medically stable. (2) Ileostomy status: Code(s): Z93.2 - Ileostomy status Status: Acute Assessment and Plan: Healing and functioning well. Plan I have discussed the patient's case and plan of care with Dr. Kim. Subjective Subjective Date/Time Seen: 04/01/23 15:30 Patient reports: no new complaints Interval history: Chart reviewed since last seen. She had her diet advanced through the weekend to a regular diet. She is not eating much off her trays but doing well with the Ensure supplements. She has good ileostomy output. Her WBC count has fluctuated since last week, down to 14.3 and up at 17.3 today. She is afebrile. [place] have been removed. She is making good urine with her bolden catheter still in place after having urinary retention over a week ago. She is still working with PT/OT. Care coordination reports patient is accepted at [facility] as a plan for discharge to SNF. She is still getting daily dressing changes with silver rope to her abdominal wound. Exam Const: General: comfortable and no acute distress GI: Inspection: non-distended and incision (healing well, no erythema) GI Palp: Yes Soft to palpation, Yes Tenderness to palpation present (GI) (diffusely tender), Yes Guarding due to palpation present (GI) (voluntary guarding) and No Rebound tenderness present Auscultation: normal bowel sounds Other: End ileostomy right upper quadrant is functioning well without any retraction or ischemia of the stoma. There is good output from the stoma. Superficial wound near the ostomy is covered with DuoDerm. No surrounding erythema or purulent drainage. Urinary Catheter: Urinary Catheter: patent and draining Objective Data Vital Signs Vital Signs: Vital Signs - 24 hr 01/14/24 16:00 03/31/23 20:53 03/31/23 21:35 Temperature 97.7 F Pulse Rate 85 98 93 Respiratory Rate 14 Blood Pressure 112/54 L Pulse Oximetry 95 93 Oxygen Delivery Room Air Fraction of Inspired Oxygen 21 03/31/23 20:00 03/31/23 20:00 04/01/23 06:00 Temperature 98 F 98.0 F Pulse Rate 98 109 H Respiratory Rate 18 14 Blood Pressure 115/60 115/61 Pulse Oximetry 93 100 Oxygen Delivery Room Air Fraction of Inspired Oxygen 04/01/23 09:35 04/01/23 09:45 04/01/23 09:40 Temperature Pulse Rate 109 H 109 H Respiratory Rate Blood Pressure 113/59 L Pulse Oximetry 97 Oxygen Delivery Room Air Fraction of Inspired Oxygen 04/01/23 14:00 Temperature 99.4 F Pulse Rate 104 H Respiratory Rate 16 Blood Pressure 92/51 L Pulse Oximetry 96 Oxygen Delivery Fraction of Inspired Oxygen Intake/Output Intake/Output: Intake & Output 03/29/23 03/30/23 03/31/23 04/01/23 23:59 23:59 23:59 23:59 Intake Total 2301 2071 2970 700 Output Total 4944 754 5682 1600 Balance 526 1171 1720 -900 Meds/Results Medications: Active Medications Generic Name Dose Route Start Last Admin Trade Name Freq PRN Reason Stop Dose Admin Acetaminophen 650 mg 03/14/23 14:37 03/30/23 10:47 Acetaminophen Elixir 325 Mg/10.15 Ml Udc FEED TUBE 650 mg Q6H PRN Administration Mild Pain (1-3) or Fever Hydrocodone Bitart/Acetaminophen 1 tab 03/23/23 10:09 03/31/23 16:52 Hydrocodone/Acetaminophen (*Crx) 5-325 Mg Tablet PO 1 tab Q4H PRN Administration Pain Rated 4-6 Hydrocodone Bitart/Acetaminophen 1 tab 03/23/23 10
[2023-04-01] MEDS: GABAPENTIN 300 MG CAPSULE PO (20:45)
[2023-04-01] MEDS: AMOXICILLIN/CLAVULANATE K 875-125 MG TAB 1 TABLET PO (20:45)
[2023-04-01] MEDS: HYDROcodone/acetaminophen (*CRX) 5-325 MG TABLET 1 TAB PO (20:48)
[2023-04-02] MEDS: DEXTROSE 10% 1,000 ML 50 ML IV CONT (01:00)
[2023-04-02 05:33] VITALS: BP 133/58; PULSE 101; RESP 12; TEMP 37.1; O2SAT 99
[2023-04-02] MEDS: LEVOTHYROXINE SODIUM 50 MCG TABLET PO (06:27)
[2023-04-02] MEDS: AMOXICILLIN/CLAVULANATE K 875-125 MG TAB 1 TABLET PO ×2 (08:46→20:13)
[2023-04-02] MEDS: CITALOPRAM HYDROBROMIDE 20 MG TABLET PO (08:47)
[2023-04-02] MEDS: ASPIRIN 81 MG CHEWABLE TABLET PO (08:47)
[2023-04-02] MEDS: ATORVASTATIN 40 MG TABLET PO (08:47)
[2023-04-02] MEDS: FLUCONAZOLE 100 MG TABLET PO (08:47)
[2023-04-02] MEDS: ENOXAPARIN 40 MG/0.4 ML SYRINGE SUB-Q (08:48)
[2023-04-02] MEDS: lamoTRIgine 100 MG TABLET PO ×2 (08:48→18:06)
[2023-04-02] MEDS: CITALOPRAM HYDROBROMIDE 10 MG TABLET PO (08:48)
[2023-04-02] MEDS: PANTOPRAZOLE SODIUM IV 40 MG VIAL IV PUSH (08:49)
[2023-04-02 08:50] VITALS: PULSE 105
[2023-04-02] MEDS: METOPROLOL TARTRATE 12.5 MG TABLET 37.5 MG PO ×2 (08:50→20:14)
[2023-04-02 09:09] VITALS: O2SAT 92
[2023-04-02] MEDS: FLUTICASONE/SALMETEROL 45-21 MCG INHALER 1 PUFF 2 PUFF INHALATION ×2 (09:10→21:50)
[2023-04-02 09:35] LABS: Basophils Absolute Auto 0.1 K/mm3 (0.0-0.1); Basophils Percent Auto 0.4 % (0.2-1.2); Eosinophils Absolute Auto 0.1 K/mm3 (0-0.3); Eosinophils Percent Auto 0.5 % (0-4.4); Hematocrit 31.8 % (37.0-47.0); Hemoglobin 9.7 g/dL (12.0-15.0); Immature Granulocyte Percent A 4.7 % (0-0.5); Lymphocytes Absolute Auto 1.18 K/mm3 (0.9-3.2); Lymphocytes Percent Auto 7.9 % (18.3-44.2); Mean Corpuscular HGB Conc 30.5 g/dl (32-36); Mean Corpuscular Hemoglobin 26.9 pg (26-34); Mean Corpuscular Volume 88.1 fl (80-100); Mean Platelet Volume 9.7 fl (7.4-10.4); Monocytes Absolute Auto 1.2 K/mm3 (0.1-0.6); Monocytes Percent Auto 7.8 % (2.6-8.5); Neutrophils Absolute Auto 11.8 K/mm3 (1.3-6.7); Neutrophils Percent Auto 78.7 % (45.5-73.1); Platelet Count Result 540 k/mm3 (150-375); Red Blood Count 3.61 M/mm3 (4.2-5.4); Red Cell Distribution Width 15.8 % (11.5-14.5)
[2023-04-02 09:45] LABS: Anion Gap 4 mmol/L (8-16); Blood Urea Nitrogen 8 mg/dL (7-17); Calcium 8.3 mg/dL (8.4-10.2); Carbon Dioxide 34 mmol/L (22-30); Chloride 92 mmol/L (98-107); Estimated CRCL calculation 50 ml/min; Estimated Glomerular Filt Rate > 60; Glucose 95 mg/dL (65-110); Sodium 130 mmol/L (137-145)
--- NOTE | 2023-04-02 10:57 | PCNFU ---
Nutrition Follow-Up Complete: Inadequate energy intake related to altered GI function, mechanical ventilation as evidenced by need for trophic tube feeding Goal:Meet estimated nutrition needs when medically able Pt current nutrition is Soft and bite sized level 6, ensure compact BID. Nutrition recommendation: encourage po intake Last recorded weight is 44.7 kg. Bowel Motility: +BM 04/02 Labs Reviewed: Hgb:9.7, HCt:31.8, Na:130 Meds Noted: lovenox, zofran, protonix Skin: no skin issues noted Additional Notes: Tube feeding d/c'd, pt has been started on a soft and bite sized level 6 diet, Ensure compact TID with meals. Intake remains poor per nursing. Continue to encourage po intake. Monitoring plan of care, intake, weights, labs Follow up in 3 days.
[2023-04-02 14:00] VITALS: BP 125/76; PULSE 91; RESP 20; TEMP 36.8; O2SAT 96
--- NOTE | 2023-04-02 14:20 | PM.PNGS ---
Progress Note: A&P Assessment and Plan (1) Bowel perforation: Code(s): K63.1 - Perforation of intestine (nontraumatic) Status: Acute Assessment and Plan: Patient still with a poor appetite, but slightly better today. Will stop the D10W. Encouraged PO intake and Ensure supplements. Switched to Augmentin and fluconazole. WBC down to 15k today. Continue PT/OT. Plan is for patient to be discharged to [facility] hopefully in the next few days once medically stable. (2) Ileostomy status: Code(s): Z93.2 - Ileostomy status Status: Acute Assessment and Plan: Healing and functioning well. Continue silver rope dressing changes to umbilical wound. Will plan to eventually have her follow-up with Dr. Kim a few weeks after discharge. Plan I have discussed the patient's case and plan of care with Dr. Kim. Subjective Subjective Date/Time Seen: 04/02/23 14:20 Patient reports: no new complaints and afebrile Interval history: Patient seen today. Per nursing, she refused breakfast and ate a small amount of lunch. She was drinking better yesterday with more oral intake than she has had in a few days. She reports poor appetite is the reason she isn't eating much. She denies any abdominal pain, nausea, vomiting, or other specific complaints. Ileostomy with 1150 cc output yesterday. Good urine output. WBC down to 15k today. Review of Systems Constitutional: Constitutional: Reports no additional constitutional complaints, Denies fever(s) and Denies headache(s) Cardiovascular: Cardiovascular: Reports no additional cardiovascular complaints, Denies chest pain and Denies pedal edema Respiratory: Respiratory: Reports no additional respiratory complaints and Denies dyspnea Gastrointestinal: Gastrointestinal: Reports as per HPI and Reports no additional gastrointestinal complaints Exam Const: General: comfortable and no acute distress Nutritional Appearance: thin Orientation/consciousness: patient oriented x3 GI: Inspection: non-distended Auscultation: normoactive bowel sounds Other: End ileostomy right upper quadrant is functioning well without any retraction or ischemia of the stoma. There is good output from the stoma. Superficial umbilical wound assessed today with a small area of haile dry necrotic tissue at the umbilicus and towards the incision, edges of the incision are still well approximated. No surrounding erythema or purulent drainage. There is an additional 0.5 cm opening to the incision just cephalad to the umbilical wound without any tracking, no purulent drainage, and only about 0.2 cm in depth. Urinary Catheter: Urinary Catheter: patent and draining Extrem: General: no calf tenderness and no edema Objective Data Vital Signs Vital Signs: Vital Signs - 24 hr 04/01/23 19:21 04/01/23 20:45 04/01/23 20:57 Temperature 99.4 F Pulse Rate 89 95 99 Respiratory Rate 16 12 Blood Pressure 123/52 L Pulse Oximetry 96 Oxygen Delivery 04/01/23 20:00 04/02/23 05:33 04/02/23 08:50 Temperature 98.8 F Pulse Rate 101 H 105 H Respiratory Rate 12 Blood Pressure 133/58 L Pulse Oximetry 99 Oxygen Delivery Room Air 04/02/23 09:09 04/02/23 08:00 04/02/23 14:00 Temperature 98.2 F Pulse Rate 91 Respiratory Rate 20 Blood Pressure 125/76 Pulse Oximetry 92 96 Oxygen Delivery Room Air Room Air Intake/Output Intake/Output: Intake & Output 03/30/23 03/31/23 04/01/23 04/02/23 23:59 23:59 23:59 23:59 Intake Total 2071 2970 1940 560 Output Total 900 1250 2800 1775 Balance 1171 1720 860 1215 Meds/Results Medications: Active Medications Generic Name Dose Route Start Last Admin Trade Name Freq PRN Reason Stop Dose Admin Acetaminophen 650 mg 03/14/23 14:37 03/30/23 10:47 Acetaminophen Elixir 325 Mg/10.15 Ml Udc FEED TUBE 650 mg Q6H PRN Administration Mild Pain (1-3) or Fever Amoxicillin/Clavulanate Potassium 1 tablet
--- NOTE | 2023-04-02 16:24 | PM.IMPN ---
Progress Note: A&P Assessment and Plan (1) Bowel perforation: Code(s): K63.1 - Perforation of intestine (nontraumatic) Status: Acute Assessment and Plan: 03/09:? Initial CT scan of the abdomen/pelvis at the outside hospital ER did not show any perforation or free air does dilated and thickened colon suggestive of enterocolitis 03/09: Repeat CT scan abdomen pelvis at [facility] ICU was performed because of abdominal distension and rigid abdomen which showed interval development of free air in the abdomen with likely perforation somewhere near the cecum. Patient underwent ex lap with total colectomy:? According to the operative notes the whole colon from the terminal ileum all the way down to the mid sigmoid colon was totally necrotic.? Patient had total colectomy.? On the OR table patient was very unstable with significantly low blood pressure, and tachycardia, the fascia was left approximated abdominal was closed with vineet in the skin and was transferred to the ICU Patient was taken to the OR for closure of her abdomen 03/12/2023.? Patient was given 1 unit of FFP and vitamin K on 03/11.? 03/12:? Status post ?Second look exploratory laparotomy, completion sigmoid colectomy, segmental small bowel resection, placement of end ileostomy, and abdominal wall closure. Surgery following closely Ostomy has good output NG tube clamped and patient tolerated this well. NG tube removed 03/20 Speech therapy saw the patient 03/19 and recommended pureed level 4 diet with thin liquids. Diet advanced per General surgery. Pureed consistency added Removed central line and Sosa 03/21. PT/OT started. More abd pain to the RLQ. Repeat CT Abd/Pelvis 03/24: S/P interval colectomy with ileostomy, extensive small bowel dilatation and gastric distention without transition point at the right mid abdomen c/w SBO, moderate abdominopelvic ascites, diffuse mesenteric edema, small bilateral pleural effusions with bibasilar atelectatic change, mild right hydronephrosis, distended bladder and fluid in the endometrial cavity versus prominent endometrium. Ostomy was flushed. Diet changed to clears. IVF started. Anasarca noted. Albumin 2.7. Diuresis when diet advanced and she is improving WBC higher today but no fevers. She remains on Zosyn. CXR showing atelectasis. BCx 03/25: pending Improved stool output. Diet advanced to Full Liquid Sosa placed for urine retention. Renal function normal. Should improve the mild hydronephrosis. Improving, on augmentin (2) Small bowel obstruction: Code(s): K56.609 - Unspecified intestinal obstruction, unspecified as to partial versus complete obstruction Status: Acute Assessment and Plan: As above (3) Acute urinary retention: Code(s): R33.8 - Other retention of urine Status: Acute Assessment and Plan: Sosa placed 03/24/23. voiding trial 04/02/23 (4) Septic shock: Code(s): A41.9 - Sepsis, unspecified organism; R65.21 - Severe sepsis with septic shock Status: Acute Assessment and Plan: Patient presented with hypotension, shortness of breath, acute kidney injury, found to have Acute surgical abdomen secondary to perforated bowel s/p Exploratory laparotomy with total colectomy for Necrotic colon with perforation, OFF ALL PRESSORS -maintain MAP > 65 mmHg are SBP > 100 mmHg at all times for adequate end organ perfusion -03/10: left femoral arterial line was placed -currently on maintenance fluids LR follow-up insensible fluid loss, as she had a lot of drainage from abdominal incision and NG tube - -improved urine output with normalization of her creatinine and lactic acidosis -BCx 03/09: negative -Sputum Cx 03/10: budding yeast with pseudohyphae -BCx 03/15: negative -status post vancomycin -off stress dose steroids -Zosyn (03/09) stopped 03/19/23 Patient remains afebrile but WBC remained elevated so Zosyn resumed 03/20/23 WBC up to 17.5K but fevers resolved. Abx per [facility]
[2023-04-02] MEDS: GABAPENTIN 300 MG CAPSULE PO (20:13)
[2023-04-02 20:14] VITALS: PULSE 105
[2023-04-02] MEDS: ACETAMINOPHEN ELIXIR 325 MG/10.15 ML UDC 650 MG FEED TUBE (21:22)
[2023-04-02 21:33] VITALS: BP 120/61; PULSE 98; RESP 12; TEMP 36.9; O2SAT 96
--- NOTE | 2023-04-03 | ECHO_ITS ---
Patient Info Name: Jeanne Fragoso Age: 62 years : 1960 Gender: Female Ht: 62 in Wt: 98 lbs BSA: 1.39 m2 HR: 97 bpm BP: 120 / 55 mmHg Heart Rhythm: Sinus Rhythm Technical Quality: Good Exam Date: 04/03/2023 10:40 AM Exam Location: Echo Lab Patient Status: Inpatient Admit Date: 03/09/2023 Staff Ordering Physician: Mary Kate Jones DO Gas Welder: Marc Kunz RDCS Attending Provider: Harris Lerner MD Referring Physician: Karen GALLEGO; Exam Type: CA echo doppler color flow Study Info Indications - evalute EF Complete two-dimensional, color flow and Doppler transthoracic echocardiogram is performed. Summary 1. Complete two-dimensional, color flow and Doppler transthoracic echocardiogram is performed. 2. Left ventricular chamber dimension is normal. 3. Left ventricular systolic function is normal, estimated at 55-60%. 4. The left ventricular diastolic function is grade I diastolic dysfunction. 5. Right ventricular systolic function is normal. 6. There is trace mitral valve regurgitation. 7. There is trace tricuspid valve regurgitation. Left Ventricle Left ventricular chamber dimension is normal. Left ventricular systolic function is normal, estimated at 55-60%. There is no increased left ventricular wall thickness. The left ventricular diastolic function is grade I diastolic dysfunction. Right Ventricle Right ventricular chamber dimension is normal. Right ventricular systolic function is normal. Left Atria Left atrial chamber dimension is normal. Right Atria Right atrial chamber dimension is normal. Atrial Septum Intact interatrial septum visualized by color flow imaging. Aortic Valve The aortic valve is probable trileaflet. There is no aortic valve stenosis. There is no aortic valve regurgitation. Pulmonic Valve The pulmonic valve is not well visualized. There is trace pulmonic regurgitation. Mitral Valve There is trace mitral valve regurgitation. Tricuspid Valve There is trace tricuspid valve regurgitation. Pericardium/Pleural There is no pericardial effusion. Inferior Vena Cava Normal inferior vena cava with >50% collapse upon inspiration consistent with normal right atrial pressure, 3 mmHg. Aorta The aortic root size at the sinus of Valsalva is normal. Left Ventricular Outflow Tract Name Value Normal LVOT 2D LVOT Diameter 1.6 cm LVOT Doppler LVOT Peak Gradient 4 mmHg LVOT Mean Gradient 2 mmHg LVOT VTI 21 cm LVOT VTI/AV VTI Ratio 0.9 LVOT Stroke Volume 42 ml LVOT CO 2.7 l/min LVOT CI 1.9 l/min/m2 Pulmonic Valve Name Value Normal RVOT Doppler RVOT Peak Gradient 2 mmHg PV Doppler PV
[2023-04-03] MEDS: LEVOTHYROXINE SODIUM 50 MCG TABLET PO (05:26)
[2023-04-03] MEDS: ACETAMINOPHEN ELIXIR 325 MG/10.15 ML UDC 650 MG FEED TUBE ×3 (05:26→23:57)
[2023-04-03 05:51] VITALS: BP 120/55; PULSE 97; RESP 14; TEMP 36.5; O2SAT 96
[2023-04-03 06:28] LABS: Basophils Absolute Auto 0.1 K/mm3 (0.0-0.1); Basophils Percent Auto 0.6 % (0.2-1.2); Eosinophils Absolute Auto 0.1 K/mm3 (0-0.3); Eosinophils Percent Auto 0.9 % (0-4.4); Hematocrit 31.5 % (37.0-47.0); Hemoglobin 9.4 g/dL (12.0-15.0); Immature Granulocyte Absolute 0.79 K/mm3 (0.00-0.031); Immature Granulocyte Percent A 6.3 % (0-0.5); Lymphocytes Absolute Auto 1.16 K/mm3 (0.9-3.2); Lymphocytes Percent Auto 9.3 % (18.3-44.2); Mean Corpuscular HGB Conc 29.8 g/dl (32-36); Mean Corpuscular Hemoglobin 26.9 pg (26-34); Mean Platelet Volume 9.8 fl (7.4-10.4); Monocytes Absolute Auto 1.2 K/mm3 (0.1-0.6); Monocytes Percent Auto 9.8 % (2.6-8.5); Neutrophils Absolute Auto 9.2 K/mm3 (1.3-6.7); Neutrophils Percent Auto 73.1 % (45.5-73.1); Platelet Count Result 527 k/mm3 (150-375); Red Cell Distribution Width 15.9 % (11.5-14.5); White Blood Count 12.5 K/mm3 (4.5-10.0)
[2023-04-03 06:41] LABS: Alanine Aminotransferase 49 U/L (6-35); Albumin Level 2.7 g/dL (3.5-5.1); Alkaline Phosphatase 160 U/L (38-126); Anion Gap 5 mmol/L (8-16); Aspartate Amino Transferase 78 U/L (14-36); Bilirubin,Total 0.3 mg/dL (0.2-1.3); Blood Urea Nitrogen 13 mg/dL (7-17); Calcium 8.4 mg/dL (8.4-10.2); Carbon Dioxide 27 mmol/L (22-30); Chloride 98 mmol/L (98-107); Estimated CRCL calculation 50 ml/min; Estimated Glomerular Filt Rate > 60; Glucose 113 mg/dL (65-110); Potassium 3.8 mmol/L (3.4-5.0); Sodium 130 mmol/L (137-145)
[2023-04-03] MEDS: FLUTICASONE/SALMETEROL 45-21 MCG INHALER 1 PUFF 2 PUFF INHALATION ×2 (08:14→21:49)
[2023-04-03 08:35] LABS: Platelet Estimate Increased (Adequate); Schistocytes None Seen (NORMAL)
[2023-04-03 09:42] VITALS: PULSE 91
[2023-04-03] MEDS: PANTOPRAZOLE SODIUM IV 40 MG VIAL IV PUSH (09:42)
[2023-04-03] MEDS: ENOXAPARIN 40 MG/0.4 ML SYRINGE SUB-Q (09:42)
[2023-04-03] MEDS: METOPROLOL TARTRATE 12.5 MG TABLET 37.5 MG PO ×2 (09:42→21:02)
[2023-04-03] MEDS: ATORVASTATIN 40 MG TABLET PO (09:44)
[2023-04-03] MEDS: CITALOPRAM HYDROBROMIDE 20 MG TABLET PO (09:44)
[2023-04-03] MEDS: CITALOPRAM HYDROBROMIDE 10 MG TABLET PO (09:44)
[2023-04-03] MEDS: lamoTRIgine 100 MG TABLET PO ×2 (09:44→17:08)
[2023-04-03] MEDS: ASPIRIN 81 MG CHEWABLE TABLET PO (09:44)
[2023-04-03] MEDS: AMOXICILLIN/CLAVULANATE K 875-125 MG TAB 1 TABLET PO ×2 (09:44→21:00)
[2023-04-03] MEDS: FLUCONAZOLE 100 MG TABLET PO (09:44)
--- NOTE | 2023-04-03 10:40 | PCPTNOTE ---
The patient treatment was not able to be completed due to patient having test at bed side. Will plan to continue treatment per plan of care.
--- NOTE | 2023-04-03 10:56 | PM.IMPN ---
Progress Note: A&P Assessment and Plan (1) Bowel perforation: Code(s): K63.1 - Perforation of intestine (nontraumatic) Status: Acute Assessment and Plan: 03/09:? Initial CT scan of the abdomen/pelvis at the outside hospital ER did not show any perforation or free air does dilated and thickened colon suggestive of enterocolitis 03/09: Repeat CT scan abdomen pelvis at [facility] ICU was performed because of abdominal distension and rigid abdomen which showed interval development of free air in the abdomen with likely perforation somewhere near the cecum. Patient underwent ex lap with total colectomy:? According to the operative notes the whole colon from the terminal ileum all the way down to the mid sigmoid colon was totally necrotic.? Patient had total colectomy.? On the OR table patient was very unstable with significantly low blood pressure, and tachycardia, the fascia was left approximated abdominal was closed with vineet in the skin and was transferred to the ICU Patient was taken to the OR for closure of her abdomen 03/12/2023.? Patient was given 1 unit of FFP and vitamin K on 03/11.? 03/12:? Status post ?Second look exploratory laparotomy, completion sigmoid colectomy, segmental small bowel resection, placement of end ileostomy, and abdominal wall closure. Surgery following closely Ostomy has good output NG tube clamped and patient tolerated this well. NG tube removed 03/20 Speech therapy saw the patient 03/19 and recommended pureed level 4 diet with thin liquids. Diet advanced per General surgery. Pureed consistency added Removed central line and Sosa 03/21. PT/OT started. More abd pain to the RLQ. Repeat CT Abd/Pelvis 03/24: S/P interval colectomy with ileostomy, extensive small bowel dilatation and gastric distention without transition point at the right mid abdomen c/w SBO, moderate abdominopelvic ascites, diffuse mesenteric edema, small bilateral pleural effusions with bibasilar atelectatic change, mild right hydronephrosis, distended bladder and fluid in the endometrial cavity versus prominent endometrium. Ostomy was flushed. Diet changed to clears. IVF started. Anasarca noted. Albumin 2.7. Diuresis when diet advanced and she is improving CXR 03/25 showing atelectasis. BCx 03/25: negative Improved stool output. Diet advanced Zosyn changed to Augmentin 04/01. Diflucan added 04/02. WBC trending down. No fevers. Good stool output. (2) Small bowel obstruction: Code(s): K56.609 - Unspecified intestinal obstruction, unspecified as to partial versus complete obstruction Status: Acute Assessment and Plan: As above (3) Acute urinary retention: Code(s): R33.8 - Other retention of urine Status: Acute Assessment and Plan: Sosa placed 03/24/23. Voiding trial 04/02/23 and voiding well so far. (4) Septic shock: Code(s): A41.9 - Sepsis, unspecified organism; R65.21 - Severe sepsis with septic shock Status: Acute Assessment and Plan: Patient presented with hypotension, shortness of breath, acute kidney injury, found to have Acute surgical abdomen secondary to perforated bowel s/p exploratory laparotomy with total colectomy for Necrotic colon with perforation -03/10: left femoral arterial line was placed -was on maintenance fluids LR follow-up insensible fluid loss, as she had a lot of drainage from abdominal incision and NG tube - -improved urine output with normalization of her creatinine and lactic acidosis -BCx 03/09: negative -Sputum Cx 03/10: budding yeast with pseudohyphae -BCx 03/15: negative -status post vancomycin -off stress dose steroids -Zosyn (03/09) stopped 03/19/23 Patient remained afebrile but WBC remained elevated so Zosyn resumed 03/20/23 As above. Leukocytosis improving Continue to monitor. (5) Elevated troponin: Code(s): R79.89 - Other specified abnormal findings of blood chemistry Status: Acute Assessment and Plan: 03/18/23,
[2023-04-03 13:52] VITALS: BP 93/56; PULSE 84; RESP 20; TEMP 36.8; O2SAT 100
--- NOTE | 2023-04-03 14:07 | PM.PNGS ---
Progress Note: A&P Assessment and Plan (1) Bowel perforation: Code(s): K63.1 - Perforation of intestine (nontraumatic) Status: Acute Assessment and Plan: Appetite much better and oral intake improved over the past two days. Continue supplements. Okay from a surgical standpoint to discharge the patient when primary service feels she is medically stable. Would recommend to continue another 7 days of the Augmentin and fluconazole. Follow-up with Dr. Kim in our office in 2 weeks. Continue silver rope dressing changes to the umbilical wound. (2) Ileostomy status: Code(s): Z93.2 - Ileostomy status Status: Acute Assessment and Plan: Functioning well. Follow-up in the office in [address] Kim. Plan I have discussed the patient's case and plan of care with Dr. Kim. Subjective Subjective Date/Time Seen: 04/03/23 14:07 Patient reports: no new complaints, tolerating a regular diet and afebrile Interval history: Patient feeling better today. She reports having more of an appetite and eating much better. Fluid intake better. Urine output adequate. Ileostomy output 750 cc yesterday and 850 cc since midnight so far. No nausea, vomiting, or abdominal pain. Exam Const: General: comfortable and awake Orientation/consciousness: patient oriented x3 GI: Inspection: non-distended and other (ileostomy pink and functioning) GI Palp: Yes Tenderness to palpation present (GI) (still diffusely tender, but improved) Auscultation: normal bowel sounds Other: End ileostomy right upper quadrant is functioning well without any retraction or ischemia of the stoma. There is good output from the stoma. Superficial umbilical wound covered by a duoderm dressing recently changed by nursing. No surrounding erythema. The remaining incision is healing well without any erythema. Urinary Catheter: Urinary Catheter: patent and draining Objective Data Vital Signs Vital Signs: Vital Signs - 24 hr 04/02/23 20:14 04/02/23 20:00 04/02/23 21:33 Temperature 98.4 F Pulse Rate 105 H 98 Respiratory Rate 12 Blood Pressure 120/61 Pulse Oximetry 96 Oxygen Delivery Room Air 04/03/23 05:51 04/03/23 09:42 04/03/23 08:00 Temperature 97.7 F Pulse Rate 97 91 Respiratory Rate 14 Blood Pressure 120/55 L Pulse Oximetry 96 Oxygen Delivery Room Air 04/03/23 13:52 Temperature 98.2 F Pulse Rate 84 Respiratory Rate 20 Blood Pressure 93/56 L Pulse Oximetry 100 Oxygen Delivery Intake/Output Intake/Output: Intake & Output 03/31/23 04/01/23 04/02/23 04/03/23 23:59 23:59 23:59 23:59 Intake Total 2970 1940 1268 1336 Output Total 1250 2800 2575 1400 Balance 1276 -656 -3357 -64 Meds/Results Medications: Active Medications Generic Name Dose Route Start Last Admin Trade Name Freq PRN Reason Stop Dose Admin Acetaminophen 650 mg 03/14/23 14:37 04/03/23 05:26 Acetaminophen Elixir 325 Mg/10.15 Ml Udc FEED TUBE 650 mg Q6H PRN Administration Mild Pain (1-3) or Fever Amoxicillin/Clavulanate Potassium 1 tablet 04/01/23 21:00 04/03/23 09:44 Amoxicillin/Clavulanate K 875-125 Mg Tab PO 1 tablet Q12HR PARAS Administration Aspirin 81 mg 03/19/23 13:15 04/03/23 09:44 Aspirin 81 Mg Chewable Tablet PO 81 mg DAILY@0800 PARAS Administration Atorvastatin Calcium 40 mg 03/19/23 13:15 04/03/23 09:44 Atorvastatin 40 Mg Tablet PO 40 mg DAILY APRAS Administration Citalopram Hydrobromide 20 mg 03/15/23 09:00 04/03/23 09:44 Citalopram Hydrobromide 20 Mg Tablet PO 20 mg DAILY PARAS Administration Citalopram Hydrobromide 10 mg 03/15/23 09:00 04/03/23 09:44 Citalopram Hydrobromide 10 Mg Tablet PO 10 mg DAILY PARAS Administration Dextrose 12.5 gm 03/10/23 00:27 03/28/23 01:25 Dextrose 50% 25 Gm/50 Ml Syringe IV PUSH 12.5 gm PRN PRN Administration Hypoglycemia Protocol Diphenhydramine HCl 25 mg 04/01/23 14:05
[2023-04-03] MEDS: GABAPENTIN 300 MG CAPSULE PO (21:01)
[2023-04-03 21:02] VITALS: PULSE 95
[2023-04-03 21:05] VITALS: BP 118/62; PULSE 92; RESP 20; TEMP 37; O2SAT 98
[2023-04-03 21:49] VITALS: PULSE 82; RESP 26
[2023-04-04] MEDS: LEVOTHYROXINE SODIUM 50 MCG TABLET PO (05:46)
[2023-04-04] MEDS: ACETAMINOPHEN ELIXIR 325 MG/10.15 ML UDC 650 MG FEED TUBE ×2 (05:47→11:38)
[2023-04-04 06:00] VITALS: BP 120/60; PULSE 97; RESP 20; TEMP 37.2; O2SAT 97
[2023-04-04 06:59] LABS: Basophils Absolute Auto 0.1 K/mm3 (0.0-0.1); Basophils Percent Auto 0.5 % (0.2-1.2); Eosinophils Absolute Auto 0.1 K/mm3 (0-0.3); Eosinophils Percent Auto 0.6 % (0-4.4); Hematocrit 31.9 % (37.0-47.0); Hemoglobin 9.7 g/dL (12.0-15.0); Immature Granulocyte Absolute 0.48 K/mm3 (0.00-0.031); Immature Granulocyte Percent A 3.8 % (0-0.5); Lymphocytes Absolute Auto 1.09 K/mm3 (0.9-3.2); Lymphocytes Percent Auto 8.6 % (18.3-44.2); Mean Corpuscular HGB Conc 30.4 g/dl (32-36); Mean Corpuscular Hemoglobin 26.8 pg (26-34); Mean Corpuscular Volume 88.1 fl (80-100); Mean Platelet Volume 9.8 fl (7.4-10.4); Monocytes Absolute Auto 1.2 K/mm3 (0.1-0.6); Monocytes Percent Auto 9.7 % (2.6-8.5); Neutrophils Absolute Auto 9.7 K/mm3 (1.3-6.7); Neutrophils Percent Auto 76.8 % (45.5-73.1); Platelet Count Result 597 k/mm3 (150-375); Red Blood Count 3.62 M/mm3 (4.2-5.4); Red Cell Distribution Width 15.7 % (11.5-14.5); White Blood Count 12.6 K/mm3 (4.5-10.0)
[2023-04-04 07:08] LABS: Anion Gap 7 mmol/L (8-16); Blood Urea Nitrogen 11 mg/dL (7-17); Carbon Dioxide 26 mmol/L (22-30); Chloride 98 mmol/L (98-107); Estimated CRCL calculation 44 ml/min; Estimated Glomerular Filt Rate > 60; Glucose 98 mg/dL (65-110); Potassium 4.4 mmol/L (3.4-5.0); Sodium 131 mmol/L (137-145)
[2023-04-04] MEDS: FLUTICASONE/SALMETEROL 45-21 MCG INHALER 1 PUFF 2 PUFF INHALATION ×2 (07:17→19:57)
[2023-04-04 07:20] VITALS: PULSE 78; RESP 18; O2SAT 98
[2023-04-04] MEDS: PANTOPRAZOLE SODIUM IV 40 MG VIAL IV PUSH (08:23)
[2023-04-04] MEDS: lamoTRIgine 100 MG TABLET PO ×2 (08:24→16:39)
[2023-04-04] MEDS: ASPIRIN 81 MG CHEWABLE TABLET PO (08:24)
[2023-04-04] MEDS: ONDANSETRON INJ 4 MG/2 ML VIAL IV PUSH (08:24)
[2023-04-04] MEDS: CITALOPRAM HYDROBROMIDE 20 MG TABLET PO (08:24)
[2023-04-04] MEDS: ATORVASTATIN 40 MG TABLET PO (08:24)
[2023-04-04] MEDS: FLUCONAZOLE 100 MG TABLET PO (08:24)
[2023-04-04] MEDS: CITALOPRAM HYDROBROMIDE 10 MG TABLET PO (08:24)
[2023-04-04] MEDS: AMOXICILLIN/CLAVULANATE K 875-125 MG TAB 1 TABLET PO ×2 (08:24→20:38)
[2023-04-04 08:25] VITALS: PULSE 112
[2023-04-04] MEDS: METOPROLOL TARTRATE 12.5 MG TABLET 37.5 MG PO ×2 (08:25→20:42)
[2023-04-04] MEDS: ENOXAPARIN 40 MG/0.4 ML SYRINGE SUB-Q (08:27)
[2023-04-04] MEDS: TOLNAFTATE 1% POWDER 45 GM BTL 1 APPLIC TOPICAL (12:41)
[2023-04-04 14:00] VITALS: BP 102/54; PULSE 81; RESP 22; TEMP 36.6; O2SAT 100
--- NOTE | 2023-04-04 14:00 | PM.DS ---
DS: Admitting Diagnosis Discharge Date 04/04/23 Admitting Diagnosis Altered mental status DS: Discharge Diagnosis Discharge Diagnosis (1) Bowel perforation: Code(s): K63.1 - Perforation of intestine (nontraumatic) Status: Acute (2) Small bowel obstruction: Code(s): K56.609 - Unspecified intestinal obstruction, unspecified as to partial versus complete obstruction Status: Acute (3) Acute urinary retention: Code(s): R33.8 - Other retention of urine Status: Acute (4) Septic shock: Code(s): A41.9 - Sepsis, unspecified organism; R65.21 - Severe sepsis with septic shock Status: Acute (5) Elevated troponin: Code(s): R79.89 - Other specified abnormal findings of blood chemistry Status: Acute (6) Cardiomyopathy: Code(s): I42.9 - Cardiomyopathy, unspecified Status: Acute (7) Acute respiratory failure: Code(s): J96.00 - Acute respiratory failure, unspecified whether with hypoxia or hypercapnia Status: Acute (8) COPD (chronic obstructive pulmonary disease): Code(s): J44.9 - Chronic obstructive pulmonary disease, unspecified Status: Acute (9) Anemia: Code(s): D64.9 - Anemia, unspecified Status: Acute (10) Anxiety and depression: Code(s): F41.9 - Anxiety disorder, unspecified; F32.A - Depression, unspecified Status: Acute (11) Hyperkalemia: Code(s): E87.5 - Hyperkalemia Status: Acute (12) ITALO (acute kidney injury): Code(s): N17.9 - Acute kidney failure, unspecified Status: Acute (13) AMS (altered mental status): Qualifiers: Altered mental status type: unspecified Qualified Code(s): R41.82 - Altered mental status, unspecified Code(s): R41.82 - Altered mental status, unspecified Status: Acute (14) Hyperammonemia: Code(s): E72.20 - Disorder of urea cycle metabolism, unspecified Status: Acute DS: Summary Hospital Course Reason for hospitalization: 62yo female with COPD, paranoid schizophrenia and hx of MRSA infection sent from outside hospital for sepsis and altered mental status and found to have septic shock from colonic perforation. Please see H&P for details Hospital Course: Patient presented with?hypotension, shortness of breath, acute kidney injury and AMS and found to have acute surgical abdomen. CT scan 03/09 abdomen pelvis at [facility] ICU was performed because of abdominal distension and rigid abdomen which showed interval development of free air in the abdomen with likely perforation somewhere near the cecum. Patient underwent exploratory lap with total colectomy:?According to the operative notes the whole colon from the terminal ileum all the way down to the mid sigmoid colon was totally necrotic.?Patient had total colectomy.?In the OR, patient was very unstable with significantly low blood pressure, and tachycardia. The fascia was left approximated and abdominal cavity was closed with vineet in the skin and was transferred back to the ICU. She was on pressors and IV fluids. Patient was also given 1 unit of FFP and vitamin K on 03/11.?She stabilized and patient was taken back to the OR for closure of her abdomen 03/12/2023 with second look exploratory laparotomy, completion of sigmoid colectomy, segmental small bowel resection, placement of end ileostomy, and abdominal wall closure. Her condition improved and we were able to wean off pressor therapy. Acute respiratory failure related to sepsis with septic shock. Patient intubated 03/09 at the outside hospital ER. Once stable, able to wean and successfully extubate 03/17. As she continued to improve, also able to wean off oxygen. Patient complained of chest pain on 03/18/23 and EKG showed sinus tachycardia with T-wave inversions in the anterior lateral leads which is new as compared to the EKG done from admission. Troponin peaked at 0.088 before trending down. Patient was started on he
[2023-04-04] MEDS: ACETAMINOPHEN 325 MG TABLET 650 MG PO (16:41)
[2023-04-04 19:58] VITALS: PULSE 105; RESP 16; O2SAT 95
[2023-04-04] MEDS: GABAPENTIN 300 MG CAPSULE PO (20:38)
[2023-04-04 20:42] VITALS: PULSE 106
== END 2023-04-04 22:00 | DRG 710 ==
LOC: ANHICU 03-17 15:11 → ANHIMU 03-19 17:48 → ANH3MEDSUR 03-26 17:48
PROVIDERS: Internal Medicine; Nurse Practitioner Family; Student in an Organized Health Care Education/Training Program; Surgery; Admitting Provider Internal Medicine; Visit Provider Internal Medicine
PROC: 0DBN0ZZ Excision of Sigmoid Colon, Open Approach (ICD-10-PCS; CPT 49000; principal; 2023-03-09 20:30)
PROC: 0DBB0ZZ Excision of Ileum, Open Approach (ICD-10-PCS; CPT 49000; principal; 2023-03-12 15:00)
DX: A41.9 Sepsis, unspecified organism (principal); R65.21 Severe sepsis with septic shock; K55.30 Necrotizing enterocolitis, unspecified; K63.1 Perforation of intestine (nontraumatic); F41.1 Generalized anxiety disorder; J96.01 Acute respiratory failure with hypoxia; N17.9 Acute kidney failure, unspecified; F60.3 Borderline personality disorder; J44.9 Chronic obstructive pulmonary disease, unspecified; E78.5 Hyperlipidemia, unspecified; R33.8 Other retention of urine; D62 Acute posthemorrhagic anemia; E03.9 Hypothyroidism, unspecified; I42.8 Other cardiomyopathies; E87.5 Hyperkalemia; K58.9 Irritable bowel syndrome, unspecified; L76.82 Other postprocedural complications of skin and subcutaneous tissue; T81.31XA Disruption of external operation (surgical) wound, not elsewhere classified, initial encounter; I96 Gangrene, not elsewhere classified; F32.9 Major depressive disorder, single episode, unspecified; F20.0 Paranoid schizophrenia; D69.59 Other secondary thrombocytopenia; Z90.49 Acquired absence of other specified parts of digestive tract; E72.20 Disorder of urea cycle metabolism, unspecified; E87.6 Hypokalemia; T50.2X5A Adverse effect of carbonic-anhydrase inhibitors, benzothiadiazides and other diuretics, initial encounter
CPT/HCPCS: 36415; 36430; 36600; 71045; 74019; 74176; 74177; 80048; 80053; 80069; 80074; 80202; 81001; 82140; 82375; 82805; 82948; 83050; 83605; 83690; 83735; 84100; 84443; 84466; 84478; 84484; 85014; 85018; 85025; 85027; 85055; 85610; 85730; 86850; 86900; 86901; 86923; 87040; 87070; 87086; 87205; 88307; 92610; 93005; 93306; 94002; 94003; 94640; 97110; 97116; 97161; 97166; 97530; 97535; A9270; C9113; J0171; J0360; J0613; J1100; J1170; J1450; J1644; J1650; J1720; J1815; J1940; J2248; J2250; J2371; J2405; J2543; J2765; J2997; J3010; J3370; J3430; J3475; J3480; J7030; J7040; J7050; J7060; J7070; J7120; P9016; P9017; P9047; Q9967

== ENCOUNTER 2023-05-24 23:40 | Emergency (ER) | payer OTHER, SELFPAY ==
--- NOTE | ~2023-05-24 | XR_ITS ---
XR chest 1V portable DATE: 05/25/2023 04:08 INDICATION: Chest pain. Smoker. History of COPD. TECHNIQUE: Portable AP chest on 05/25/2023 at 0402 hours COMPARISON: 03/25/2023 portable AP chest at 1829 hours FINDINGS: Prominent bilateral hyperinflation consistent with COPD. No pulmonary infiltrate or consoli dation, pleural effusion or pulmonary vascular congestion or pneumothorax is detected. Normal heart size. No hilar or mediastinal enlargement is evident. Osteopenia. Surgical clips overlying the medial right upper abdomen. Radiopaque material is noted within the constantin janice lumen. IMPRESSION: COPD Reviewed, dictated and finalized at location A. EL NURSE IMPRESSION: COPD
[2023-05-24 23:45] VITALS: BP 100/63; PULSE 105; RESP 20; TEMP 36.8; O2SAT 100
[2023-05-25 00:51] LABS: Basophils Percent Auto 0.4 % (0.2-1.2); Eosinophils Absolute Auto 0.1 K/mm3 (0-0.3); Eosinophils Percent Auto 1.2 % (0-4.4); Hematocrit 31.1 % (37.0-47.0); Hemoglobin 9.6 g/dL (12.0-15.0); Immature Granulocyte Absolute 0.07 K/mm3 (0.00-0.031); Immature Granulocyte Percent A 0.8 % (0-0.5); Lymphocytes Absolute Auto 1.65 K/mm3 (0.9-3.2); Lymphocytes Percent Auto 19.9 % (18.3-44.2); Mean Corpuscular HGB Conc 30.9 g/dl (32-36); Mean Corpuscular Hemoglobin 27.1 pg (26-34); Mean Corpuscular Volume 87.9 fl (80-100); Mean Platelet Volume 10.5 fl (7.4-10.4); Monocytes Percent Auto 11.9 % (2.6-8.5); Neutrophils Absolute Auto 5.5 K/mm3 (1.3-6.7); Neutrophils Percent Auto 65.8 % (45.5-73.1); Platelet Count Result 322 k/mm3 (150-375); Red Blood Count 3.54 M/mm3 (4.2-5.4); Red Cell Distribution Width 14.8 % (11.5-14.5); White Blood Count 8.3 K/mm3 (4.5-10.0)
[2023-05-25 01:04] LABS: Anion Gap 4 mmol/L (8-16); Blood Urea Nitrogen 48 mg/dL (7-17); Calcium 9.9 mg/dL (8.4-10.2); Carbon Dioxide 22 mmol/L (22-30); Chloride 110 mmol/L (98-107); Estimated CRCL calculation 20 ml/min; Estimated Glomerular Filt Rate 41; Glucose 107 mg/dL (65-110); Potassium 5.5 mmol/L (3.4-5.0); Sodium 136 mmol/L (137-145)
--- NOTE | 2023-05-25 01:18 | ECG_ITS ---
Measurements Intervals [place] Rate: 85 P: -15 DC: 157 QRS: -16 QRSD: 82 T: -18 QT: 342 QTc: 409 Interpretive Statements SINUS RHYTHM VOLTAGE CRITERIA FOR LVH INFERIOR INFARCT, AGE INDETERMINATE ABNORMAL ECG COMPARED TO ECG 04/01/2023 13:28:32 SINUS RHYTHM NOW PRESENT MYOCARDIAL INFARCT NOW PRESENT Electronically Signed On 05-25-2023 7:35:42 ELECTRONIC ENGINEERING TECHNICIAN by Jimmy Maynard D.O.
--- NOTE | 2023-05-25 01:19 | ED.GENADULT ---
HPI - General Adult General Chief complaint: Recheck/Abnormal Lab/Rx Stated complaint: elevated potassium Time Seen by Provider: 05/24/23 23:55 History of Present Illness HPI narrative: This is a 62-year-old female sent from the [facility] for abnormal labs. She had a potassium of 6.2. Patient is A&O x1 and does not know why she is in the emergency department right now. No history of kidney failure. Patient denies any other complaints at this time. Related Data Home Medications Medication Instructions Recorded Confirmed acetaminophen 325 mg tablet 650 mg PO Q4-6H PRN Pain 03/09/23 03/09/23 albuterol sulfate 90 mcg/actuation 2 puff inhalation Q4-6H PRN 03/09/23 03/09/23 aerosol inhaler Shortness Of Breath Or Wheezing budesonide-formoterol HFA 80 2 puff inhalation BID 03/09/23 03/09/23 mcg-4.5 mcg/actuation aerosol inhaler (Symbicort) citalopram 10 mg tablet 10 mg PO DAILY 03/09/23 03/09/23 citalopram 20 mg tablet 20 mg PO DAILY 03/09/23 03/09/23 gabapentin 300 mg capsule 300 mg PO HS 03/09/23 03/09/23 lamotrigine 100 mg tablet 100 mg PO BID 03/09/23 03/09/23 levothyroxine 50 mcg tablet 50 mcg PO DAILY 03/09/23 03/09/23 omeprazole 10 mg capsule,delayed 10 mg PO DAILY 03/09/23 03/09/23 release paliperidone palmitate 156 mg/mL 156 mg IM MONTHLY 03/09/23 03/09/23 intramuscular syringe (Invega Sustenna) Allergies Allergy/AdvReac Type Severity Reaction Status Date / Time morphine Allergy Unknown Verified 03/09/23 08:51 Sulfa (Sulfonamide Allergy Unknown Verified 03/09/23 08:51 Antibiotics) [facility] Past Medical History Medical History Borderline personality disorder Chronic back pain COPD (chronic obstructive pulmonary disease) ERIKA (generalized anxiety disorder) History of MRSA infection HLD (hyperlipidemia) Hypothyroid IBS (irritable bowel syndrome) MDD (major depressive disorder) Paranoid schizophrenia Surgical History Surgical History History of abdominal surgery no current documentation available, midline incision - likely laparotomy. Unclear if from choley. History of x2 History of cholecystectomy Social History Social History Social History: Currently a resident at [facility] ([phone]), previously at [facility] in [place], [place] ([phone]). No emergency contact listed at either facility, patient gestured no when asked if there was anyone she wanted us to call. Full Code Smoking status: Smoker, status unknown Spiritual care concerns: No Exam Narrative: APPEARANCE: No apparent distress. A&O x1 Head: atraumatic. EYES: EOMI, NOSE: Atraumatic NECK: Trachea midline RESPIRATORY: No increased rate of breathing CARDIOVASCULAR: RRR, ABDOMINAL: Colostomy bag in place, abdomen soft nontender MUSCULOSKELETAl: No obvious deformities NEURO: Alert. Moving 4/4 extremities SKIN:: Warm, dry. Normal color PSYCHIATRIC: Normal affect Course Vital Signs Vital signs: Vital Signs Temperature 98.3 F 05/24/23 23:45 Pulse Rate 105 H 05/24/23 23:45 Respiratory Rate 20 05/24/23 23:45 Blood Pressure 100/63 05/24/23 23:45 Pulse Oximetry 100 05/24/23 23:45 Oxygen Delivery Room Air 05/24/23 23:45 Temperature 98.3 F 05/24/23 23:45 Pulse Rate 91 05/25/23 01:40 Respiratory Rate 15 05/25/23 01:40 Blood Pressure 102/73 05/25/23 01:40 Pulse Oximetry 96 05/25/23 01:40 Oxygen Delivery Room Air 05/24/23 23:45 Medical Decision Making [facility] Narrative Medical decision making narrative: -Course: 62-year-old [place] female sent in for abnormal labs. Potassium here was 5.5. No EKG changes. Slight elevations in BUN and creatinine.. Patient given 2 L of normal saline and Lokelma. Repeat lab work improved. Hyperkalemia likely from fluid responsive ITALO. Tatiana
[2023-05-25 01:40] VITALS: BP 102/73; PULSE 91; RESP 15; O2SAT 96
[2023-05-25] MEDS: SODIUM ZIRCONIUM CYCLOSILICATE 10 GM POWD.PACK PO (01:41)
[2023-05-25] MEDS: SODIUM CHLORIDE 0.9% IV 2,000 ML 999 ML IV CONT (01:42)
[2023-05-25 04:08] LABS: Anion Gap 1 mmol/L (8-16); Blood Urea Nitrogen 41 mg/dL (7-17); Calcium 8.3 mg/dL (8.4-10.2); Carbon Dioxide 20 mmol/L (22-30); Chloride 116 mmol/L (98-107); Estimated CRCL calculation 23 ml/min; Estimated Glomerular Filt Rate 50; Glucose 108 mg/dL (65-110); Potassium 4.8 mmol/L (3.4-5.0); Sodium 137 mmol/L (137-145)
[2023-05-25 04:14] LABS: Troponin I < 0.012 ng/mL (0.000-0.034)
[2023-05-25 04:24] LABS: Troponin I < 0.012 ng/mL (0.000-0.034)
[2023-05-25 04:57] VITALS: BP 102/52; PULSE 94; RESP 16; O2SAT 100
== END 2023-05-25 05:45 | disposition home or self-care (01) ==
PROVIDERS: Emergency Provider Emergency Medicine; PCP Internal Medicine
DX: E86.0 Dehydration (principal); N17.9 Acute kidney failure, unspecified; E87.5 Hyperkalemia; E78.5 Hyperlipidemia, unspecified; J44.9 Chronic obstructive pulmonary disease, unspecified; E03.9 Hypothyroidism, unspecified
CPT/HCPCS: 36415; 71045; 80048; 84484; 85025; 93005; 96360; 96361; 99284; A9270; J7030

== ENCOUNTER 2023-08-13 17:58 | Inpatient (IN) | payer OTHER, SELFPAY ==
--- NOTE | ~2023-08-13 | CT_ITS ---
EXAMINATION: CT abdomen pelvis wo con DATE: 08/29/2023 13:05 INDICATION: Enterocutaneous fistula and abscess. TECHNIQUE: Computed tomography (CT) of the abdomen and pelvis was performed with water-soluble oral c ontrast but without intravenous contrast. Automated exposure control and iterative reconstruction lida hnique were employed. The dose-length product was 217.50 mGy-cm. COMPARISON: 08/17/2023 and 08/13/2023 FINDINGS: Discoid atelectasis in the right middle and lower lobes and mild additional atelectasis at the medial margin of the inferior lingula. Heart size is normal. No pericardial or pleural effusion. There is d ecreased attenuation the blood pool relative to myocardium consistent with anemia. There are few scat tered hepatic calcific lesions consistent with old granulomatous disease. Cholecystectomy clips the g allbladder fossa. Spleen, pancreas and bilateral adrenal glands are normal. 3 unchanged stones in the right kidney the largest measuring 6 mm the upper pole. Persistent severe right hydronephrosis with mild right renal atrophy. 1 mm stone at the upper pole the left kidney. No left-sided hydronephrosis. Bladder and uterus are unremarkable. Postoperative change of prior subtotal colectomy with suture li ne at the proximal margin of a Long's pouch in the pelvis and with a right lower quadrant and ileo stomy. Oral contrast material extensor the majority of the small bowel. There is a small amount of ex traluminal contrast within the partially decompressed. See drained abscess cavity at the site of the since removed percutaneous drainage catheter. There is a thickened soft tissue density wall surroundi ng the extraluminal contrast. No significant change in a small gas and noncontrast opacified fluid co ntaining abscess within the overlying right posterior abdominal wall musculature. No new or enlarging abscesses or more remote free intraperitoneal gas. No pathologically enlarged abdominal or pelvic ly mphadenopathy. Bones are unremarkable. IMPRESSION: 1. Small amount of extraluminal oral contrast material within a largely decompressed right lower quad rant abscess cavity at the site of the since removed percutaneous drainage catheter consistent with p ersistent communication to the bowel. 2. No interval change in the overlying small gas and fluid containing abscess cavity in the right fla nk musculature. 3. Persistent severe right hydronephrosis with associated mild right renal atrophy. 4. Bilateral nephrolithiasis. Reviewed, dictated and finalized at location A. IMPRESSION: 1. Small amount of extraluminal oral contrast material within a largely decompr essed right lower quadrant abscess cavity at the site of the since removed perc utaneous drainage catheter consistent with persistent communication to the geri l. 2. No interval change in the overlying small gas and fluid containing abscess c avity in the right flank musculature. 3. Persistent severe right hydronephrosis with associated mild right renal atro phy. 4. Bilateral nephrolithiasis.
--- NOTE | ~2023-08-13 | XR_ITS ---
EXAM: XR abdomen gastric tube rechec DATE: 08/13/2023 23:31 HISTORY: post ng advancement . COMPARISON: Same date at 10:41 PM. FINDINGS/IMPRESSION: The nasogastric tube tip and side port now project over the expected location of the stomach. Persistent dilation of multiple small bowel loops in the upper abdomen. Reviewed, dictated and finalized at location K.
--- NOTE | ~2023-08-13 | XR_ITS ---
EXAMINATION: XR chest 2V Exam Date/Time: 08/13/2023 18:35 CDT HISTORY: cough WITH NAUSEA AND VOMITTING X 1 DAY Comparison: 05/25/2023. RESULT: Lines, tubes, and devices: Cholecystectomy clips. Lungs and pleura: Senescent/emphysematous change, otherwise clear. Cardiomediastinal silhouette: Stable. Other: No acute osseous or upper abdominal finding. IMPRESSION: No acute cardiopulmonary process. Reviewed, dictated and finalized at location K.
--- NOTE | ~2023-08-13 | CT_ITS ---
EXAMINATION: CT abdomen pelvis w con DATE: 08/13/2023 20:19 INDICATION: abdominal pain TECHNIQUE: Computed tomography (CT) of the abdomen and pelvis was performed with 100 mL Omnipaque-350 intravenous contrast. Automated exposure control and iterative reconstruction technique were employe d. The dose-length product was 220.62 mGy-cm. COMPARISON: 03/28/2023. FINDINGS: Lower thorax: Unremarkable Liver: Normal. Biliary/Gallbladder: Gallbladder is absent. No bile duct dilation. Pancreas: No mass or duct dilation. Spleen: Normal. Adrenals:No mass. Kidneys: Moderate right pelviectasis and caliectasis, with dilation of the proximal right ureter. Non obstructing right inferior pole calcification. The left kidney is normal. GI tract: Status post colectomy. Diffusely dilated small bowel, transition point in the right lower q uadrant, only a few centimeters of normal caliber distal small bowel prior to the small bowel ostomy in the right lower quadrant. Normal appendix. Mesentery/Peritoneum: Large lobulated rim-enhancing fluid and gas collection in the right abdomen wit h extension through the right lateral abdominal sidewall, and into the right iliacus muscle. Irregula r shape makes precise measurement difficult, approximate overall measurements 6.5 cm AP x 4.8 cm arriola sverse x10.5 cm craniocaudad Fistulous connection with the adjacent dilated small bowel (axial image [id number]). Retroperitoneum: No mass. Pelvis: Pelvic organs are within normal limits. Soft Tissues: Soft tissues and body wall unremarkable. Bones: No acute osseous finding. IMPRESSION: Small bowel obstruction, transition point in the right lower quadrant adjacent to an intra-abdominal abscess. Large intra-abdominal abscess along the right abdominal sidewall, extending through a lateral abdomin al herniation, and also involving the right iliacus muscle. A fistulous connection is noted between the intra-abdominal abscess collection and the adjacent small bowel. The intra-abdominal abscess also causes moderate obstructive uropathy on the right. Reviewed, dictated and finalized at location K. IMPRESSION: Small bowel obstruction, transition point in the right lower quadrant adjacent to an intra-abdominal abscess. Large intra-abdominal abscess along the right abdominal sidewall, extending thr ough a lateral abdominal herniation, and also involving the right iliacus muscl e. A fistulous connection is noted between the intra-abdominal abscess collection and the adjacent small bowel. The intra-abdominal abscess also causes moderate obstructive uropathy on the ri ght.
--- NOTE | ~2023-08-13 | XR_ITS ---
EXAM: XR abdomen gastric tube insert DATE: 08/13/2023 22:52 HISTORY: post ng placement . COMPARISON: CT abdomen and pelvis, same date. FINDINGS: Senescent/emphysematous change in the lung bases. NG tube, tip over the stomach, side port at the GE junction. Multiple loops and dilated small bowel in the upper abdomen. No organomegaly. Ch olecystectomy clips. IMPRESSION: Shallow positioned NG tube, consider advancing 5 cm. Reviewed, dictated and finalized at location K.
--- NOTE | ~2023-08-13 | CT_ITS ---
EXAMINATION: CT abdomen pelvis w con DATE: 08/17/2023 10:56 INDICATION: Abdominal abscess. TECHNIQUE: Computed tomography (CT) of the abdomen and pelvis was performed with 100 mL Omnipaque 350 intravenous contrast. Automated exposure control and iterative reconstruction technique were employe d. The dose-length product was 391.39 mGy-cm. COMPARISON: CT abdomen and pelvis 08/13/2023 FINDINGS: The visualized portions of the lung bases demonstrate mild atelectasis. There are small ple ural effusions, left worse than right. The heart size is normal. No pericardial effusion. The liver i s normal. There are changes of cystectomy. The spleen, pancreas, adrenal glands, and left kidney are normal. There is a delayed right-sided contrast nephrogram. There is mild atrophy of right kidney. Th ere are 6 mm and 3 mm stones in right kidney. There is severe right hydronephrosis. A Cordell pouch is noted. There is an end ileostomy in right abdomen. The bowel is decompressed. There is a small vol ume of ascites. There is a percutaneous drain in right lower quadrant in a collection that extends in to the right flank musculature with residual fluid in the right flank musculature measuring 1.6 x 0.8 cm. There are no pathologically enlarged lymph nodes. There is mild lumbar spondylosis. IMPRESSION: 1. Abscess in the right lower quadrant extending into the right flank musculature with little residua l fluid in the abscess and percutaneous drain in expected position. 2. Small volume of ascites. 3. Persistent severe right hydronephrosis. Mild right kidney atrophy. 4. Small pleural effusions. Reviewed, dictated and finalized at location E. IMPRESSION: 1. Abscess in the right lower quadrant extending into the right flank musculatu re with little residual fluid in the abscess and percutaneous drain in expected position. 2. Small volume of ascites. 3. Persistent severe right hydronephrosis. Mild right kidney atrophy. 4. Small pleural effusions.
--- NOTE | ~2023-08-13 | CT_ITS ---
EXAMINATION: CT guide absc cath placement DATE: 08/14/2023 12:44 INDICATION: Intra-abdominal abscess. TECHNIQUE: The procedure including the risks, benefits, and alternatives was discussed with the patie nt. Risks discussed included bleeding and infection. The patient understood the risks and benefits an d agreed to proceed. The patient was confirmed to be receiving appropriate antibiotic coverage. The skin overlying the abdomen was prepped and draped in usual sterile fashion. Anesthetic was administe red with 1% lidocaine subcutaneously. An 18 gauge trochar needle was inserted into the right lower qu adrant abdominal abscess with CT guidance. The needle was exchanged over a wire for 6 Malian, 8 Frenc h, and 9 Malian dilators and then for an 8.5 Malian pigtail catheter. The catheter was stitched to th e skin, and a sterile dressing was applied. The mA was adjusted according to patient size. Iterative reconstruction technique was employed. The dose-length product was 187.66 mGy-cm. There were no immed iate complications. FINDINGS: CT images demonstrate the catheter within the right lower quadrant abdominal abscess. 10 mL fluid was aspirated for testing. IMPRESSION: 1. Successful CT-guided right lower quadrant abdominal abscess drainage. 2. 10 mL of opaque, haile fluid was sent for aerobic and anaerobic cultures. Reviewed, dictated and finalized at location A.
[2023-08-13 18:00] VITALS: BP 124/61; PULSE 117; RESP 18; TEMP 36.4; O2SAT 99
--- NOTE | 2023-08-13 18:13 | ED.NAVMDI ---
HPI - Nausea/Vomiting/Diarrhea General Chief complaint: Nausea/Vomiting/Diarrhea Stated complaint: n/v Time Seen by Provider: 08/13/23 18:08 History of Present Illness HPI Narrative: Patient is a 62-year-old female with history of chronic back pain, COPD, IBS, paranoid schizophrenia, colostomy placement after bowel perforation in February of 2023 here with abdominal pain, nausea, decrease ostomy output. She states that she started feeling abdominal pains about 1 week ago. She notes that the just below her ostomy. She does feel a bit more distended than usual. Typically when she is feeling well she empties her ostomy nearly every day however she has had such decreased ostomy output over the last 1 week that she has not changed since yesterday and has minimal output in her ostomy today. She notes associated nausea and has had multiple episodes of vomiting today. She received Zofran EN route from EMS and continues to be nauseous. She does endorse some dysuria, believes this is present for about the same period of time. She additionally has had a cough which she describes as bronchitis. She denies currently being on any antibiotics. She denies any chest pain or shortness of breath. Related Data Home Medications Medication Instructions Recorded Confirmed acetaminophen 325 mg tablet 650 mg PO Q4-6H PRN Pain 03/09/23 08/14/23 albuterol sulfate 90 mcg/actuation 2 puff inhalation Q4-6H PRN 03/09/23 08/14/23 aerosol inhaler Shortness Of Breath Or Wheezing gabapentin 300 mg capsule 300 mg PO HS 03/09/23 08/14/23 lamotrigine 100 mg tablet 100 mg PO BID 03/09/23 08/14/23 levothyroxine 50 mcg tablet 50 mcg PO DAILY 03/09/23 08/14/23 omeprazole 10 mg capsule,delayed 10 mg PO DAILY 03/09/23 08/14/23 release paliperidone palmitate 156 mg/mL 156 mg IM MONTHLY 03/09/23 03/09/23 intramuscular syringe (Invega Sustenna) Adult One Daily Multivitamin 1 tablet PO DAILY 08/14/23 08/14/23 ascorbic acid (vitamin C) 500 mg 500 mg PO DAILY 08/14/23 08/14/23 tablet duloxetine 20 mg capsule,delayed 40 mg PO DAILY 08/14/23 08/14/23 release (Cymbalta) fluticasone 100 mcg-salmeterol 50 2 ea inhalation BID 08/14/23 08/14/23 mcg/dose blistr powdr for inhalation (Advair Diskus) folic acid 1 mg tablet 1 mg PO DAILY 08/14/23 08/14/23 hydroxyzine HCl 25 mg tablet 25 mg PO QID anxiety or itching 08/14/23 08/14/23 loperamide 2 mg capsule 2 mg PO TID PRN Diarrhea 08/14/23 08/14/23 melatonin 3 mg tablet 3 mg PO HS 08/14/23 08/14/23 ondansetron 4 mg disintegrating 4 mg PO Q6H PRN Nausea 08/14/23 08/14/23 tablet polyethylene glycol 3350 17 17 g PO DAILY PRN Constipation 08/14/23 08/14/23 gram/dose oral powder (Miralax) risperidone 0.5 mg tablet 0.5 mg PO DAILY 08/14/23 08/14/23 sodium zirconium cyclosilicate 10 10 g PO DAILY 08/14/23 08/14/23 gram oral powder packet (Lokelma) thiamine HCl (vitamin B1) 100 mg 100 mg PO DAILY 08/14/23 08/14/23 tablet tolnaftate 1 % topical powder 1 applic topical Q12HR PRN Rash 08/14/23 08/14/23 Allergies Allergy/AdvReac Type Severity Reaction Status Date / Time morphine Allergy Unknown Verified 03/09/23 08:51 Sulfa (Sulfonamide Allergy Unknown Verified 03/09/23 08:51 Antibiotics) Review of Systems Review of Systems: All systems reviewed & are unremarkable except as noted in HPI and below PMFSH Past Medical History Medical History (Updated 08/14/23 @ 14:00 by Teri Javier MD) Borderline personality disorder Chronic back pain COPD (chronic obstructive pulmonary disease) ERIKA (generalized anxiety disorder) History of MRSA infection With MRSA screen 08/13/2023 being negative HLD (hyperlipidemia) Hypothyroid IBS (irritable bowel syndrome) MDD (major depressive disorder) Paranoid schizophrenia Surgical History Surgical History History of abdominal surgery no current documentation available, midline incision - likely laparotomy. Unclear i
[2023-08-13 18:19] LABS: Basophils Percent Auto 0.2 % (0.2-1.2); Eosinophils Percent Auto 0.1 % (0-4.4); Hematocrit 32.2 % (37.0-47.0); Immature Granulocyte Percent A 0.8 % (0-0.5); Lymphocytes Absolute Auto 0.86 K/mm3 (0.9-3.2); Lymphocytes Percent Auto 3.6 % (18.3-44.2); Mean Corpuscular HGB Conc 31.1 g/dl (32-36); Mean Corpuscular Hemoglobin 26.3 pg (26-34); Mean Corpuscular Volume 84.7 fl (80-100); Mean Platelet Volume 10.2 fl (7.4-10.4); Monocytes Absolute Auto 1.1 K/mm3 (0.1-0.6); Monocytes Percent Auto 4.4 % (2.6-8.5); Neutrophils Absolute Auto 21.5 K/mm3 (1.3-6.7); Neutrophils Percent Auto 90.9 % (45.5-73.1); Platelet Count Result 398 k/mm3 (150-375); Red Cell Distribution Width 17.2 % (11.5-14.5); White Blood Count 23.7 K/mm3 (4.5-10.0)
[2023-08-13] MEDS: LACTATED RINGERS 1,000 ML 999 ML IV CONT ×3 (18:30→23:25)
--- NOTE | 2023-08-13 18:30 | ECG_ITS ---
SEE SCANNED COPY FOR CONFIRMED REPORT MTDD
[2023-08-13 18:46] LABS: Appearance Urine Clear (Clear); Bacteria Urine None Seen /hpf; Bilirubin Urine Negative (Negative); Blood Urine Negative (Negative); Color Urine Yellow (Yellow); Glucose Urine UA Negative (Negative); Ketones Urine Negative (Negative); Leukocyte Esterase Ur Negative LEU/UL (Negative); Need Manual Microscopic Reviewed; Nitrate Urine Negative (Negative); Protein Urine Trace mg/dL (Negative); RBC Urine 0-2 /hpf (0-2); Specific Grav Ur 1.013 (1.001-1.035); Squamous Epithelial Cell Urine None Seen /hpf (Few); Urobilinogen Urine 0.2 mg/dL (<2.0); WBC Urine 0-5 /hpf (0-3); pH Urine 5.5 (5.0-9.0)
[2023-08-13 18:55] LABS: Add Urine Microscopic? YES
[2023-08-13 18:57] LABS: Alanine Aminotransferase 24 U/L (6-35); Albumin Level 4.1 g/dL (3.5-5.1); Alkaline Phosphatase 132 U/L (38-126); Anion Gap 10 mmol/L (4-12); Aspartate Amino Transferase 24 U/L (14-36); Bilirubin,Total 0.3 mg/dL (0.2-1.3); Blood Urea Nitrogen 47 mg/dL (7-17); Calcium 9.8 mg/dL (8.4-10.2); Carbon Dioxide 18 mmol/L (22-30); Chloride 106 mmol/L (98-107); Estimated CRCL calculation 20 ml/min; Estimated Glomerular Filt Rate 30; Glucose 147 mg/dL (65-110); Lipase 274 U/L (23-300); Potassium 6.1 mmol/L (3.4-5.0); Sodium 134 mmol/L (137-145)
[2023-08-13] MEDS: ONDANSETRON INJ 4 MG/2 ML VIAL IV PUSH ×2 (19:05→21:59)
[2023-08-13 19:08] LABS: CRP 5.2 mg/dL (<1.0)
[2023-08-13] MEDS: ALBUTEROL SULFATE NEB 2.5 MG/3 ML INH 10 MG INHALATION (19:12)
[2023-08-13 19:14] VITALS: PULSE 104; RESP 21
[2023-08-13] MEDS: DEXTROSE 50% 25 GM/50 ML SYRINGE IV PUSH (19:15)
[2023-08-13] MEDS: SODIUM BICARBONATE 8.4% 50 MEQ/50 ML SYRINGE IV PUSH (19:15)
[2023-08-13] MEDS: INSULIN HUMAN REGULAR (*BKC) 100 UNITS/ML 10 UNITS IV PUSH (19:16)
[2023-08-13 19:18] VITALS: BP 106/64; PULSE 100; RESP 16; O2SAT 98
[2023-08-13 19:36] LABS: Lactic Acid Reflex 1.9 mmol/L (0.7-2.0)
[2023-08-13 19:41] LABS: INR 1.1; Prothrombin Time 14.2 Seconds (11.1-14.7)
[2023-08-13] MEDS: PIPERACILLN/TAZ 3.375GM/NS50ML 3.375 GM/50 ML BAG IVPB (19:41)
[2023-08-13 19:42] LABS: Partial Thromboplastin Time 33.5 Seconds (22.3-36.8)
[2023-08-13 19:45] LABS: NT Pro B Type Natriuretic Pept 205 pg/mL (19.9-100); Troponin I < 0.012 ng/mL (0.000-0.034)
[2023-08-13 19:56] VITALS: PULSE 135; RESP 21
[2023-08-13 20:06] LABS: Influenza A QL RT-PCR Negative (Negative); Influenza B QL RT-PCR Negative (Negative); RSV RNA, RT-PCR Negative (Negative); SARS-CoV-2 RNA PCR Negative (Negative)
[2023-08-13] MEDS: VANCOMYCIN 1,000 MG/NS 250 ML 1,000 MG/250 ML BAG 250 MG IVPB (20:30)
[2023-08-13 20:41] VITALS: BP 114/67; PULSE 133; RESP 24; O2SAT 96
[2023-08-13 20:51] LABS: MRSA (PCR) NOT DETECTED (NOT DETECTE)
[2023-08-13 21:45] LABS: Glucose Point of Care 96 mg/dl (65-105)
[2023-08-13] MEDS: HYDROmorphone HCL INJ (*CRX) 1 MG/ML SYR IV PUSH (21:59)
[2023-08-13 22:06] LABS: Anion Gap 6 mmol/L (4-12); Blood Urea Nitrogen 40 mg/dL (7-17); Calcium 9.3 mg/dL (8.4-10.2); Carbon Dioxide 23 mmol/L (22-30); Chloride 106 mmol/L (98-107); Estimated CRCL calculation 22 ml/min; Estimated Glomerular Filt Rate 35; Glucose 96 mg/dL (65-110); Potassium 4.8 mmol/L (3.4-5.0); Sodium 135 mmol/L (137-145)
[2023-08-13 22:14] LABS: Lactic Acid Reflex 2.3 mmol/L (0.7-2.0)
[2023-08-13 23:01] VITALS: BP 95/59; PULSE 120; RESP 13; O2SAT 98
--- NOTE | 2023-08-13 23:36 | PC.NURSE ---
2336: This RN drained pt ostomy bag at this time.
[2023-08-13] MEDS: LACTATED RINGERS 1,000 ML 100 ML IV CONT (23:44)
--- NOTE | 2023-08-13 23:48 | PM.IMHP ---
H&P: HPI History of Present Illness Date/Time: 08/13/23 22:55 Chief Complaint: Abdominal pain Narrative: Pleasant 62-year-old female with a past medical history of paranoid schizophrenia, anxiety, hypothyroidism, GERD, essential hypertension, COPD and complex surgical history with necrotic bowel, bowel resection with open abdomen with delayed closure with ileostomy placement and subsequent necrotic abdominal wound hospitalized March 09, 2023 through 04/04/2023 who presented back to the ER from [facility] with abdominal pain. The patient initially reported that she had been having about 1 week of abdominal pain and decreased oral intake. But after further questioning she reports that she has been having escalating abdominal pain for about a month but she did want to bother any body. She was also having accompanying nausea. But over the last week she has developed decreased ostomy output and only had about 10 mL of output all day prior to coming to the ER. She had had several large emesis at the half-way today. She received Zofran in route to the hospital. About 2 hours after arrival hospital she had another large amount of emesis. She denied any fevers or chills. She she has had decreased oral intake will last couple of weeks and feels as if she has lost weight. CT scan with contrast performed in the ER demonstrated small-bowel obstruction with transition point in the right lower abdominal quadrant adjacent to an intra-abdominal abscess that measured 6.5 x 4.8 x 10.5 with associated fistulous connection to the adjacent dilated small bowel with abscess extending through the lateral abdominal herniation and involving the right ilial psoas muscle and right abdominal sidewall. She reported to the ER staff that she was having some burning with urination for about a week but is associated with decreased urine output not increased frequency or urgency. UA in the ER was unremarkable. However intra-abdominal abscess is causing moderate obstructive uropathy on the right. BMP in the ER did demonstrate acute kidney injury and hyperkalemia. The patient had been evaluated for hyperkalemia in the ER in May and was discharged back to the half-way on . She is not on any potassium supplements. History present illness comes from review of prior medical records, ER report and nursing report. The patient provide some history but has significant psychiatric disorder which makes history process difficult. Review of Systems Review of Systems: 12 systems were reviewed with pertinent positives and negatives per HPI. Except as documented in the HPI, all other systems were reviewed and are negative. Although the patient is not the best historian reliability of review of systems is questionable. [facility] Past Medical History Medical History (Updated 08/14/23 @ 04:03 by Rachel Wood DO) Borderline personality disorder Chronic back pain COPD (chronic obstructive pulmonary disease) ERIKA (generalized anxiety disorder) History of MRSA infection With MRSA screen 08/13/2023 being negative HLD (hyperlipidemia) Hypothyroid IBS (irritable bowel syndrome) MDD (major depressive disorder) Paranoid schizophrenia Surgical History Surgical History History of abdominal surgery no current documentation available, midline incision - likely laparotomy. Unclear if from choley. History of x2 History of cholecystectomy Family History Family History Other Heart attack Social History Social History (Updated 08/14/23 @ 03:51 by Rachel Wood DO) Social History: Was resident at [facility] ([phone]), previously at [facility] in [place], [place] ([phone]). After her prolonged hospitalization February through March the patient was discharged to [facility]. Code status: Full Code per EMR
[2023-08-14] VITALS (19 sets, daily range): BP systolic 91–104; BP diastolic 37–57; PULSE 72–110; RESP 14–20; TEMP 36.1–37.4; O2SAT 97–100; BMI 16.8
[2023-08-14 01:01] LABS: Reflex Lactic Acid Yes or No Add Lactic
--- NOTE | 2023-08-14 01:24 | ADMGEN ---
0115 This patient, Jeanne Fragoso, was admitted to IMU Room 214-01. Patient/family oriented to hospital policies and general routines including ID bracelet, bed and alarms, visiting hours, pain management, procedures, bathroom and other care routines, personal items, smoking policy, room service/diet, and visiting hours. Information on how to activate the Rapid Response Team has been discussed. Patient/Family are encouraged to report perceived risks to care and to ask questions if they do not understand what they are told or what they should do.
[2023-08-14 01:54] LABS: Lactic Acid 2.7 mmol/L (0.7-2.0)
--- NOTE | 2023-08-14 03:30 | PC.NURSE ---
RN called [facility], patients' place of residency, to inquire about [employer]. Staff told RN to call in the morning and speak with Briana. RN informed MD and will pass on to day RN.
[2023-08-14 04:28] LABS: Basophils Absolute Auto 0.1 K/mm3 (0.0-0.1); Basophils Percent Auto 0.2 % (0.2-1.2); Immature Granulocyte Absolute 0.17 K/mm3 (0.00-0.031); Immature Granulocyte Percent A 0.7 % (0-0.5); Lymphocytes Absolute Auto 0.71 K/mm3 (0.9-3.2); Lymphocytes Percent Auto 2.9 % (18.3-44.2); Mean Corpuscular Hemoglobin 26.5 pg (26-34); Mean Corpuscular Volume 85.3 fl (80-100); Mean Platelet Volume 10.4 fl (7.4-10.4); Monocytes Absolute Auto 1.3 K/mm3 (0.1-0.6); Monocytes Percent Auto 5.1 % (2.6-8.5); Neutrophils Absolute Auto 22.5 K/mm3 (1.3-6.7); Neutrophils Percent Auto 91.1 % (45.5-73.1); Platelet Count Result 357 k/mm3 (150-375); Red Cell Distribution Width 17.1 % (11.5-14.5); White Blood Count 24.7 K/mm3 (4.5-10.0)
[2023-08-14 04:47] LABS: Alanine Aminotransferase 29 U/L (6-35); Albumin Level 3.3 g/dL (3.5-5.1); Alkaline Phosphatase 171 U/L (38-126); Anion Gap 9 mmol/L (4-12); Aspartate Amino Transferase 29 U/L (14-36); Bilirubin,Total 0.4 mg/dL (0.2-1.3); Blood Urea Nitrogen 35 mg/dL (7-17); Calcium 9.3 mg/dL (8.4-10.2); Carbon Dioxide 21 mmol/L (22-30); Chloride 107 mmol/L (98-107); Estimated CRCL calculation 23 ml/min; Estimated Glomerular Filt Rate 35; Glucose 130 mg/dL (65-110); Potassium 4.6 mmol/L (3.4-5.0); Sodium 137 mmol/L (137-145)
[2023-08-14 04:53] LABS: Burr Cells 1+; Ovalocytes 1+; Platelet Estimate Adequate (Adequate); Schistocytes None Seen
[2023-08-14] MEDS: LEVOTHYROXINE SODIUM INJ 100 MCG/5 ML VIAL 25 MCG IV PUSH (05:15)
[2023-08-14] MEDS: PIPERACILLIN/TAZ 2.25G/NS 50ML 2.25 GM/50 ML BAG IVPB ×2 (05:15→10:00)
[2023-08-14] MEDS: FLUTICASONE/SALMETEROL 45-21 MCG INHALER 1 PUFF 2 PUFF INHALATION ×2 (08:39→20:30)
[2023-08-14] MEDS: PANTOPRAZOLE SODIUM IV 40 MG VIAL IV PUSH (09:17)
[2023-08-14] MEDS: FOLIC ACID 1 MG/0.2 ML INJ IV PUSH (09:17)
[2023-08-14] MEDS: THIAMINE HCL 200 MG/2 ML VIAL 100 MG IV PUSH (09:17)
[2023-08-14 11:57] LABS: Lactic Acid Reflex 3.7 mmol/L (0.7-2.0)
--- NOTE | 2023-08-14 12:17 | PM.IMPN ---
Progress Note: A&P Assessment and Plan (1) Sepsis: Qualifiers: Sepsis type: sepsis due to unspecified organism Sepsis acute organ dysfunction status: with acute organ dysfunction Severe sepsis acute organ dysfunction type: acute renal failure Acute renal failure type: unspecified Severe sepsis shock status: without septic shock Qualified Code(s): A41.9 - Sepsis, unspecified organism; R65.20 - Severe sepsis without septic shock; N17.9 - Acute kidney failure, unspecified Code(s): A41.9 - Sepsis, unspecified organism Status: Acute (2) Paranoid schizophrenia: Code(s): F20.0 - Paranoid schizophrenia Status: Acute (3) Urinary retention: Code(s): R33.9 - Retention of urine, unspecified Status: Acute (4) Acute hyperkalemia: Code(s): E87.5 - Hyperkalemia Status: Acute (5) Intra-abdominal abscess: Code(s): K65.1 - Peritoneal abscess Status: Acute (6) Small bowel obstruction: Code(s): K56.609 - Unspecified intestinal obstruction, unspecified as to partial versus complete obstruction Status: Acute (7) Ileostomy status: Code(s): Z93.2 - Ileostomy status Status: Acute (8) COPD (chronic obstructive pulmonary disease): Code(s): J44.9 - Chronic obstructive pulmonary disease, unspecified Status: Acute (9) Anxiety and depression: Code(s): F41.9 - Anxiety disorder, unspecified; F32.A - Depression, unspecified Status: Acute (10) ITALO (acute kidney injury): Code(s): N17.9 - Acute kidney failure, unspecified Status: Acute Plan A pleasant 62-year-old female with a past medical history of paranoid schizophrenia, anxiety, hypothyroidism, GERD, essential hypertension, COPD and complex surgical history with necrotic bowel, bowel resection with open abdomen with delayed closure with ileostomy placement and subsequent necrotic abdominal wound hospitalized March 09, 2023 through 04/04/2023 who presented back to the ER from [facility] with abdominal pain.?The patient initially reported that she had been having about 1 week of abdominal pain and decreased oral intake.? But after further questioning she reports that she has been having escalating abdominal pain for about a month but she did want to bother any body.? She was also having accompanying nausea.? But over the last week she has developed decreased ostomy output and only had about 10 mL of output all day prior to coming to the ER.? She had had several large emesis at the detention today.? She received Zofran in route to the hospital.? About 2 hours after arrival hospital she had another large amount of emesis.? She denied any fevers or chills.? She she has had decreased oral intake will last couple of weeks and feels as if she has lost weight.? CT scan with contrast performed in the ER demonstrated small-bowel obstruction with transition point in the right lower abdominal quadrant adjacent to an intra-abdominal abscess that measured 6.5 x 4.8 x 10.5 with associated fistulous connection to the adjacent dilated small bowel with abscess extending through the lateral abdominal herniation and involving the right ilial psoas muscle and right abdominal sidewall.? She reported to the ER staff that she was having some burning with urination for about a week but is associated with decreased urine output not increased frequency or urgency.? UA in the ER was unremarkable.? However intra-abdominal abscess is causing moderate obstructive uropathy on the right.? BMP in the ER did demonstrate acute kidney injury and hyperkalemia.? The patient had been evaluated for hyperkalemia in the ER in May and was discharged back to the detention on .? She is not on any potassium supplements.? History present illness comes from review of prior medical records, ER report and nursing report.?The patient provide some history but has significant psychiatric disorder which makes history process
[2023-08-14] MEDS: LACTATED RINGERS 1,000 ML 100 ML IV CONT ×2 (13:16→17:52)
[2023-08-14] MEDS: LACTATED RINGERS 1,000 ML 999 ML IV CONT (13:17)
[2023-08-14] MEDS: metroNIDAZOLE 500 MG/ISO 100ML 500 MG/100 ML BAG 100 MG IVPB ×2 (13:18→21:40)
[2023-08-14 14:43] LABS: Reflex Lactic Acid Yes or No Add Lactic
[2023-08-14 15:56] LABS: Anion Gap 6 mmol/L (4-12); Blood Urea Nitrogen 31 mg/dL (7-17); Calcium 8.9 mg/dL (8.4-10.2); Carbon Dioxide 23 mmol/L (22-30); Chloride 108 mmol/L (98-107); Estimated CRCL calculation 26 ml/min; Estimated Glomerular Filt Rate 41; Glucose 98 mg/dL (65-110); Lactic Acid Reflex 2.4 mmol/L (0.7-2.0); Magnesium 1.7 mg/dL (1.6-2.3); Potassium 4.3 mmol/L (3.4-5.0); Sodium 137 mmol/L (137-145)
[2023-08-14] MEDS: HYDROmorphone HCL INJ (*CRX) 1 MG/ML SYR 0.5 MG IV PUSH ×2 (17:00→21:34)
--- NOTE | 2023-08-14 18:51 | WPDCN ---
Assessment and Plan Assessment and plan (1) Sepsis: Qualifiers: Sepsis acute organ dysfunction status: unspecified Sepsis type: sepsis due to unspecified organism Qualified Code(s): A41.9 - Sepsis, unspecified organism Code(s): A41.9 - Sepsis, unspecified organism Status: Acute Assessment and Plan: Sepsis due to the abdominal and abdominal wall abscess. Continue broad-spectrum IV antibiotic coverage to cover aerobic and anaerobic organism. Cultures are pending of the abscess cavity. (2) Intra-abdominal abscess: Code(s): K65.1 - Peritoneal abscess Status: Acute Assessment and Plan: This may be due to some perforation the small bowel as the CT stim to suggest possible enterocutaneous fistula to the abdominal wall abscess. For now will leave the NG tube in place she has had a IR directed CT-guided drain placed into the abscess cavity. (3) Small bowel obstruction: Code(s): K56.609 - Unspecified intestinal obstruction, unspecified as to partial versus complete obstruction Status: Acute Assessment and Plan: Appears to be due to mass effect from the abdominal wall abscess at this time. Will have the abscess drained and see if this improves. She does have output of pasty stool and some liquid stool in her ostomy bag so she does not have a complete small-bowel obstruction. She may have a enterocutaneous fistula which as long as it is controlled can be worked up and out with once the abscess is drained and her sepsis is treated. [facility] Data of Consult Date/Time: 08/14/23 18:51 Requesting Physician: Rachel Wood DO Primary Care Provider: Carlyle Coyne, Consult Narrative Reason for consult: Abdominal pain, leukocytosis, abdominal wall abscess possible EC fistula. Narrative: Jeanne Fragoso is a 62 year old female who was well known to me from a admission to the [facility] around [place] of 2022. She was initially admitted to [facility] where she was thought to have pneumonia. She clinically deteriorated her abdomen became distended and CT scan suggested she had colitis. She was transferred [facility] for further management. While in the intensive care unit she continued to deteriorate with worsening abdominal exam and CT scan revealed that she had free air consistent with bowel perforation. She was becoming hemodynamically unstable she was then taken emergently to the operating room where she underwent a subtotal colectomy starting at the ileocecal valve and terminal extending all the way to the mid sigmoid colon. All the colon was completely necrotic. She was so hemodynamically unstable on the operating table that after the colon resection I did not even close the abdomen left the fascia open and left the bowel in discontinuity without forming and a end ileostomy. She was taken back to the intensive care unit intubated and in very critically ill condition intubated maxed out on 3 pressors.. She actually was not expected to live through the evening. However over the next few days she made a miraculous recovery and weaned off of all of her pressors. When she was hemodynamically stable I took her back to the operating room for a second-look laparotomy. Small amount of her distal small bowel was ischemic and so I resected that portion washed her abdomen out and placed a end ileostomy. Fascia was closed primarily without any difficulty. She eventually was discharged from the hospital after her prolonged hospitalization back to a care facility. She had been doing well there until the last few days when she started having abdominal pain and abdominal distention. She was then brought back to the [facility] Emergency Room where note have a white blood cell count of 23,[address] scan abdomen pelvis showed dilated loops of small bowel with air-fluid levels consistent with small-bowel obstruction. She also had a large righ
[2023-08-14] MEDS: LEVALBUTEROL NEB 1.25 MG/3 ML 0.63 MG INHALATION (20:37)
[2023-08-14 20:47] LABS: Vancomycin Trough 9.4 ug/mL (10.0-20.0)
[2023-08-14] MEDS: CEFEPIME 2 GM/NS 50 ML 2 GM/50 ML BAG IVPB (21:35)
[2023-08-14] MEDS: VANCOMYCIN 750 MG/NS 250 ML 750 MG/250 ML BAG 250 MG IVPB (22:11)
[2023-08-15] VITALS (17 sets, daily range): BP systolic 110–132; BP diastolic 47–69; PULSE 73–103; RESP 16–20; TEMP 36–37.3; O2SAT 97–100
[2023-08-15] MEDS: LORazepam INJ (*CRX) 2 MG/ML VIAL 0.5 MG IV PUSH ×2 (03:59→20:47)
[2023-08-15] MEDS: ONDANSETRON INJ 4 MG/2 ML VIAL IV PUSH ×3 (03:59→20:48)
[2023-08-15 05:03] LABS: Alanine Aminotransferase 19 U/L (6-35); Albumin Level 2.6 g/dL (3.5-5.1); Alkaline Phosphatase 122 U/L (38-126); Anion Gap 4 mmol/L (4-12); Aspartate Amino Transferase 21 U/L (14-36); Bilirubin,Total 0.3 mg/dL (0.2-1.3); Blood Urea Nitrogen 24 mg/dL (7-17); Calcium 8.5 mg/dL (8.4-10.2); Carbon Dioxide 23 mmol/L (22-30); Chloride 107 mmol/L (98-107); Estimated CRCL calculation 31 ml/min; Estimated Glomerular Filt Rate 50; Glucose 87 mg/dL (65-110); Magnesium 1.8 mg/dL (1.6-2.3); Potassium 3.6 mmol/L (3.4-5.0); Sodium 134 mmol/L (137-145)
[2023-08-15 05:05] LABS: Basophils Percent Auto 0.3 % (0.2-1.2); Eosinophils Percent Auto 0.5 % (0-4.4); Hematocrit 24.8 % (37.0-47.0); Hemoglobin 7.6 g/dL (12.0-15.0); Immature Granulocyte Absolute 0.03 K/mm3 (0.00-0.031); Immature Granulocyte Percent A 0.5 % (0-0.5); Lymphocytes Absolute Auto 0.79 K/mm3 (0.9-3.2); Lymphocytes Percent Auto 12.2 % (18.3-44.2); Mean Corpuscular HGB Conc 30.6 g/dl (32-36); Mean Corpuscular Hemoglobin 26.5 pg (26-34); Mean Corpuscular Volume 86.4 fl (80-100); Mean Platelet Volume 10.4 fl (7.4-10.4); Monocytes Absolute Auto 0.7 K/mm3 (0.1-0.6); Monocytes Percent Auto 11.2 % (2.6-8.5); Neutrophils Absolute Auto 4.9 K/mm3 (1.3-6.7); Neutrophils Percent Auto 75.3 % (45.5-73.1); Platelet Count Result 280 k/mm3 (150-375); Red Blood Count 2.87 M/mm3 (4.2-5.4); Red Cell Distribution Width 17.1 % (11.5-14.5); White Blood Count 6.5 K/mm3 (4.5-10.0)
[2023-08-15 05:09] LABS: Lactic Acid Reflex 1.1 mmol/L (0.7-2.0)
[2023-08-15 05:23] LABS: Procalcitonin 0.3 ng/mL
[2023-08-15] MEDS: LEVOTHYROXINE SODIUM INJ 100 MCG/5 ML VIAL 25 MCG IV PUSH (06:51)
[2023-08-15] MEDS: LACTATED RINGERS 1,000 ML 100 ML IV CONT ×2 (06:51→20:49)
[2023-08-15] MEDS: metroNIDAZOLE 500 MG/ISO 100ML 500 MG/100 ML BAG 100 MG IVPB ×3 (06:51→22:49)
[2023-08-15] MEDS: FLUTICASONE/SALMETEROL 45-21 MCG INHALER 1 PUFF 2 PUFF INHALATION ×2 (08:32→20:26)
[2023-08-15] MEDS: FOLIC ACID 1 MG/0.2 ML INJ IV PUSH (09:53)
[2023-08-15] MEDS: PANTOPRAZOLE SODIUM IV 40 MG VIAL IV PUSH (09:53)
[2023-08-15] MEDS: CEFEPIME 1 GM/NS 50 ML 1 GM/50 ML BAG IVPB ×2 (09:54→20:47)
[2023-08-15] MEDS: THIAMINE HCL 200 MG/2 ML VIAL 100 MG IV PUSH (09:54)
--- NOTE | 2023-08-15 12:58 | WPDPN ---
Progress Note: A&P Assessment and Plan (1) Intra-abdominal abscess: Code(s): K65.1 - Peritoneal abscess Status: Acute Assessment and Plan: Abscess has been drained by IR directed pigtail drain. Cultures are pending. Continue broad-spectrum IV antibiotic coverage. Can narrow the coverage based upon the culture results when they are available. Continue supportive management. Plan on getting a repeat CT scan in 24 to 48 hours. Nasogastric tube can be removed today. Started on clear liquids with some Ensure supplements. Loss order therapy for PT and OT. But her on some subcutaneous prophylactic dose Lovenox. (2) Sepsis: Qualifiers: Sepsis type: sepsis due to unspecified organism Sepsis acute organ dysfunction status: with acute organ dysfunction Severe sepsis acute organ dysfunction type: acute renal failure Acute renal failure type: unspecified Severe sepsis shock status: without septic shock Qualified Code(s): A41.9 - Sepsis, unspecified organism; R65.20 - Severe sepsis without septic shock; N17.9 - Acute kidney failure, unspecified Code(s): A41.9 - Sepsis, unspecified organism Status: Acute Assessment and Plan: Sepsis is improving. Lactic acid level is normalized. White blood cell count has decreased for over 20,000 down to 6500 today. No fever tachycardia. Subjective Date/time seen: 08/15/23 12:58 Interval history: Patient has no new complaints today. She had IR directed CT-guided pigtail drain placed into the right lower quadrant abdomen and abdominal wall abscess yesterday. Cultures are pending. She remains on broad-spectrum IV antibiotic coverage for both aerobic and anaerobic organisms. Nasogastric tube has been clamped since last evening. She has good output coming out through her end ileostomy. Exam GI: Other: Abdomen is soft and nondistended. Ileostomy has good nonbloody typical succus appearance. No tenderness to palpation. Drain in place and dressed. Objective Data Vital Signs Vital Signs: Vital Signs - 24 hr 08/14/23 15:43 08/14/23 16:00 08/14/23 14:00 Temperature 36.9 C Pulse Rate 95 95 Respiratory Rate 18 Blood Pressure 91/37 L Pulse Oximetry 99 Oxygen Delivery Room Air Fraction of Inspired Oxygen 08/14/23 16:00 08/14/23 19:49 08/14/23 20:40 Temperature 37.4 C Pulse Rate 94 95 97 Respiratory Rate 18 20 Blood Pressure 92/49 L Pulse Oximetry 98 Oxygen Delivery Fraction of Inspired Oxygen 08/14/23 20:52 08/14/23 21:01 08/14/23 20:00 Temperature Pulse Rate 97 95 Respiratory Rate 20 Blood Pressure Pulse Oximetry 97 Oxygen Delivery Room Air Room Air Fraction of Inspired Oxygen 08/14/23 23:52 08/15/23 04:00 08/14/23 20:00 Temperature 36.5 C 36.6 C Pulse Rate 107 H 96 94 Respiratory Rate 18 20 Blood Pressure 101/57 L 113/62 Pulse Oximetry 99 100 Oxygen Delivery Fraction of Inspired Oxygen 08/14/23 22:00 08/15/23 00:00 08/15/23 02:00 Temperature Pulse Rate 110 H 103 H 93 Respiratory Rate Blood Pressure Pulse Oximetry Oxygen Delivery Fraction of Inspired Oxygen 08/15/23 04:00 08/15/23 00:00 08/15/23 04:00 Temperature Pulse Rate 95 Respiratory Rate Blood Pressure Pulse Oximetry Oxygen Delivery Room Air Room Air Fraction of Inspired Oxygen 08/15/23 06:00 08/15/23 07:49 08/15/23 08:32 Temperature 36.5 C Pulse Rate 91 84 Respiratory Rate 20 Blood Pressure 111/53 L Pulse Oximetry 98 97 Oxygen Delivery Room Air Fraction of Inspired Oxygen 21 08/15/23 08:32 08/15/23 11:46 08/15/23 08:00 Temperature 36.3 C L Pulse Rate 83 86 86 Respiratory Rate 18 18 Blood Pressure 119/55 L Pulse Oximetry 97 Oxygen Delivery Fraction of Inspired Oxygen 08/15/23 08:00 08/15/23 10:00 08/15/23 12:00 Temperature Pulse Rate 86 Respiratory Rate Blood Pressure Pulse Oxim
--- NOTE | 2023-08-15 13:06 | P.PNIM_ITS ---
Progress Note: A&P Assessment and Plan (1) Sepsis: Qualifiers: Sepsis type: sepsis due to unspecified organism Sepsis acute organ dysfunction status: with acute organ dysfunction Severe sepsis acute organ dysfunction type: acute renal failure Acute renal failure type: unspecified Severe sepsis shock status: without septic shock Qualified Code(s): A41.9 - Sepsis, unspecified organism; R65.20 - Severe sepsis without septic shock; N17.9 - Acute kidney failure, unspecified Code(s): A41.9 - Sepsis, unspecified organism Status: Acute (2) Paranoid schizophrenia: Code(s): F20.0 - Paranoid schizophrenia Status: Acute (3) Urinary retention: Code(s): R33.9 - Retention of urine, unspecified Status: Acute (4) Acute hyperkalemia: Code(s): E87.5 - Hyperkalemia Status: Acute (5) Intra-abdominal abscess: Code(s): K65.1 - Peritoneal abscess Status: Acute (6) Small bowel obstruction: Code(s): K56.609 - Unspecified intestinal obstruction, unspecified as to partial versus complete obstruction Status: Acute (7) Ileostomy status: Code(s): Z93.2 - Ileostomy status Status: Acute (8) COPD (chronic obstructive pulmonary disease): Code(s): J44.9 - Chronic obstructive pulmonary disease, unspecified Status: Acute (9) Anxiety and depression: Code(s): F41.9 - Anxiety disorder, unspecified; F32.A - Depression, unspecified Status: Acute (10) ITALO (acute kidney injury): Code(s): N17.9 - Acute kidney failure, unspecified Status: Acute Plan A pleasant 62-year-old female with a past medical history of paranoid schizophrenia, anxiety, hypothyroidism, GERD, essential hypertension, COPD and complex surgical history with necrotic bowel, bowel resection with open abdomen with delayed closure with ileostomy placement and subsequent necrotic abdominal wound hospitalized March 09, 2023 through 04/04/2023 who presented back to the ER from [facility] with abdominal pain.?The patient initially reported that she had been having about 1 week of abdominal pain and decreased oral intake.? But after further questioning she reports that she has been having escalating abdominal pain for about a month but she did want to bother any body.? She was also having accompanying nausea.? But over the last week she has developed decreased ostomy output and only had about 10 mL of output all day prior to coming to the ER.? She had had several large emesis at the senior living today.? She received Zofran in route to the hospital.? About 2 hours after arrival hospital she had another large amount of emesis.? She denied any fevers or chills.? She she has had decreased oral intake will last couple of weeks and feels as if she has lost weight.? CT scan with contrast performed in the ER demonstrated small-bowel obstruction with transition point in the right lower abdominal quadrant adjacent to an intra-abdominal abscess that measured 6.5 x 4.8 x 10.5 with associated fistulous connection to the adjacent dilated small bowel with abscess extending through the lateral abdominal herniation and involving the right ilial psoas muscle and right abdominal sidewall.? She reported to the ER staff that she was having some burning with urination for about a week but is associated with decreased urine output not increased frequency or urgency.? UA in the ER was unremarkable.? However intra-abdominal abscess is causing moderate obstructive uropathy on the right.? BMP in the ER did demonstrate acute kidney injury and hyperkalemia.? The patient had been evaluated for hyperkalemia in the ER in May and was d
[2023-08-15 20:44] LABS: Vancomycin Trough 11.3 ug/mL (10.0-20.0)
[2023-08-16] VITALS (11 sets, daily range): BP systolic 115–136; BP diastolic 55–72; PULSE 73–110; RESP 16–18; TEMP 36.1–37; O2SAT 97–100; BMI 19.3
[2023-08-16] MEDS: VANCOMYCIN 750 MG/NS 250 ML 750 MG/250 ML BAG 250 MG IVPB (00:05)
[2023-08-16 04:18] LABS: Basophils Percent Auto 0.2 % (0.2-1.2); Eosinophils Percent Auto 0.8 % (0-4.4); Hematocrit 21.7 % (37.0-47.0); Immature Granulocyte Absolute 0.01 K/mm3 (0.00-0.031); Immature Granulocyte Percent A 0.2 % (0-0.5); Lymphocytes Absolute Auto 0.85 K/mm3 (0.9-3.2); Mean Corpuscular HGB Conc 31.3 g/dl (32-36); Mean Corpuscular Hemoglobin 26.5 pg (26-34); Mean Corpuscular Volume 84.4 fl (80-100); Mean Platelet Volume 9.9 fl (7.4-10.4); Monocytes Absolute Auto 0.7 K/mm3 (0.1-0.6); Monocytes Percent Auto 13.7 % (2.6-8.5); Neutrophils Absolute Auto 3.2 K/mm3 (1.3-6.7); Neutrophils Percent Auto 67.1 % (45.5-73.1); Platelet Count Result 274 k/mm3 (150-375); Red Blood Count 2.57 M/mm3 (4.2-5.4); Red Cell Distribution Width 16.3 % (11.5-14.5); White Blood Count 4.7 K/mm3 (4.5-10.0)
[2023-08-16 04:20] LABS: Hemoglobin 6.8 g/dL (12.0-15.0)
[2023-08-16 04:41] LABS: Alanine Aminotransferase 15 U/L (6-35); Albumin Level 2.4 g/dL (3.5-5.1); Alkaline Phosphatase 100 U/L (38-126); Anion Gap 2 mmol/L (4-12); Aspartate Amino Transferase 21 U/L (14-36); Bilirubin,Total 0.2 mg/dL (0.2-1.3); Blood Urea Nitrogen 14 mg/dL (7-17); Calcium 8.3 mg/dL (8.4-10.2); Carbon Dioxide 26 mmol/L (22-30); Chloride 107 mmol/L (98-107); Estimated CRCL calculation 39 ml/min; Estimated Glomerular Filt Rate 56; Glucose 81 mg/dL (65-110); Magnesium 1.7 mg/dL (1.6-2.3); Potassium 3.2 mmol/L (3.4-5.0); Sodium 135 mmol/L (137-145)
[2023-08-16] MEDS: metroNIDAZOLE 500 MG/ISO 100ML 500 MG/100 ML BAG 100 MG IVPB ×3 (06:20→23:53)
[2023-08-16] MEDS: LEVOTHYROXINE SODIUM INJ 100 MCG/5 ML VIAL 25 MCG IV PUSH (06:51)
[2023-08-16] MEDS: FLUTICASONE/SALMETEROL 45-21 MCG INHALER 1 PUFF 2 PUFF INHALATION ×2 (08:06→19:45)
[2023-08-16] MEDS: CEFEPIME 1 GM/NS 50 ML 1 GM/50 ML BAG IVPB ×2 (08:23→21:27)
[2023-08-16] MEDS: ONDANSETRON INJ 4 MG/2 ML VIAL IV PUSH (08:23)
[2023-08-16] MEDS: LACTATED RINGERS 1,000 ML 100 ML IV CONT (08:23)
[2023-08-16] MEDS: THIAMINE HCL 200 MG/2 ML VIAL 100 MG IV PUSH (08:27)
[2023-08-16] MEDS: PANTOPRAZOLE SODIUM IV 40 MG VIAL IV PUSH (08:27)
[2023-08-16] MEDS: FOLIC ACID 1 MG/0.2 ML INJ IV PUSH (08:27)
[2023-08-16] MEDS: POTASSIUM CHLORIDE INJ 40 MEQ in SODIUM CHLORIDE 0.9% IV 500 ML 130 MEQ IVPB (09:18)
[2023-08-16 10:57] LABS: Hemoglobin 7.4 g/dL (12.0-15.0)
--- NOTE | 2023-08-16 15:58 | WPDPN ---
Progress Note: A&P Assessment and Plan (1) Intra-abdominal abscess: Code(s): K65.1 - Peritoneal abscess Status: Acute Assessment and Plan: Sepsis has resolved. Continue IV antibiotics for now. Can go ahead advanced diet to heart healthy solid food. Will repeat CT scan abdomen pelvis with IV contrast tomorrow. If abdominal and abdominal wall abscess resolve then may consider removing drain in next 1 to 2 days. No evidence of small-bowel obstruction now. Ostomy seems to be working well. Continue supportive management. Subjective Date/time seen: 08/16/23 15:58 Interval history: Patient continues to do well. Asking to have some solid food. No abdominal pain. No fever. White blood cell count is normal at 4700. Nasogastric tube removed yesterday and is tolerated well without nausea or vomiting. Exam GI: Other: Abdomen is soft and nondistended. Right-sided end ileostomy is functioning well. Liquid stool output. Right-sided perc drain in place. Dressing is dry. Output is moderate amount of purulent fluid. Objective Data Vital Signs Vital Signs: Vital Signs - 24 hr 08/15/23 16:00 08/15/23 16:07 08/15/23 18:00 Temperature 37.3 C Pulse Rate 97 100 86 Respiratory Rate 18 Blood Pressure 132/69 Pulse Oximetry 99 Oxygen Delivery 08/15/23 20:00 08/15/23 20:30 08/15/23 20:00 Temperature 36.0 C L Pulse Rate 90 78 Respiratory Rate 18 18 Blood Pressure 122/61 Pulse Oximetry 99 Oxygen Delivery Room Air 08/15/23 20:00 08/15/23 23:51 08/16/23 00:00 Temperature 36.4 C L Pulse Rate 73 92 93 Respiratory Rate 16 Blood Pressure 110/47 L Pulse Oximetry 100 Oxygen Delivery 08/16/23 04:00 08/16/23 07:36 08/16/23 08:07 Temperature 36.1 C L Pulse Rate 76 73 110 H Respiratory Rate 18 16 Blood Pressure 119/55 L Pulse Oximetry 97 Oxygen Delivery 08/16/23 08:00 08/16/23 08:00 08/16/23 12:00 Temperature Pulse Rate 75 96 Respiratory Rate Blood Pressure Pulse Oximetry Oxygen Delivery Room Air 08/16/23 15:28 Temperature 36.9 C Pulse Rate 88 Respiratory Rate 18 Blood Pressure 136/72 Pulse Oximetry 100 Oxygen Delivery Intake/Output Intake/Output: Intake & Output 08/13/23 08/14/23 08/15/23 08/16/23 23:59 23:59 23:59 23:59 Intake Total 2300 1760 2760 2760 Output Total 2180 930 960 Balance 2300 -420 1830 1800 Meds/Results Medications: Active Medications Generic Name Dose Route Start Last Admin Trade Name Freq PRN Reason Stop Dose Admin Enoxaparin Sodium 30 mg 08/16/23 09:00 08/16/23 07:58 Enoxaparin 30 Mg/0.3 Ml Syringe SUB-Q Not Given DAILY PARAS Folic Acid 1 mg 08/14/23 09:00 08/16/23 08:27 Folic Acid 1 Mg/0.2 Ml Inj IV PUSH 1 mg QAM PARAS Administration Hydromorphone HCl 0.5 mg 08/14/23 03:30 08/14/23 21:34 Hydromorphone Hcl Inj (*Crx) 1 Mg/Ml Syr IV PUSH 0.5 mg Q3H PRN Administration Pain Rated 7-10 Lactated Ringer's 1,000 mls @ 100 mls/hr 08/13/23 23:20 08/16/23 08:23 Lr - Lactated Ringers Iv IV CONT 100 mls/hr .Q10H PARAS Administration Metronidazole 500 mg in 100 mls @ 100 mls/hr 08/14/23 12:15 08/16/23 14:49 Flagyl 500 Mg/Iso Soln 100 Ml IVPB Infused Q8HR PARAS Infusion Cefepime HCl 1 gm in 50 mls @ 100 mls/hr 08/15/23 09:00 08/16/23 08:53 Maxipime 1 Gm/Ns 50 Ml IVPB Infused Q12H PARAS Infusion Levalbuterol HCl 0.63 mg 08/14/23 04:10 08/14/23 20:37 Levalbuterol Neb 1.25 Mg/3 Ml INHALATION 0.63 mg Q6HRT PRN Administration Shortness of breath/wheezing Levothyroxine Sodium 25 mcg 08/14/23 06:30 08/16/23 06:51 Levothyroxine Sodium Inj 100 Mcg/5 Ml Vial IV PUSH 25 mcg DAILY@0630 PARAS Administration Lorazepam 0.5 mg 08/14/23 03:29 08/15/23 20:47 Lorazepam Inj (*Crx) 2 Mg/Ml Vial IV PUSH 0.5 mg Q6H PRN Administration Anxiety Ondansetron HCl 4 mg 08/15/23 00:09 08/16/23 08:23 Ondanset
--- NOTE | 2023-08-16 16:15 | PM.IMPN ---
Progress Note: A&P Assessment and Plan (1) Sepsis: Qualifiers: Acute renal failure type: unspecified Sepsis acute organ dysfunction status: with acute organ dysfunction Sepsis type: sepsis due to unspecified organism Severe sepsis acute organ dysfunction type: acute renal failure Severe sepsis shock status: without septic shock Qualified Code(s): A41.9 - Sepsis, unspecified organism; R65.20 - Severe sepsis without septic shock; N17.9 - Acute kidney failure, unspecified Code(s): A41.9 - Sepsis, unspecified organism Status: Acute (2) Paranoid schizophrenia: Code(s): F20.0 - Paranoid schizophrenia Status: Acute (3) Urinary retention: Code(s): R33.9 - Retention of urine, unspecified Status: Acute (4) Acute hyperkalemia: Code(s): E87.5 - Hyperkalemia Status: Acute (5) Intra-abdominal abscess: Code(s): K65.1 - Peritoneal abscess Status: Acute (6) Small bowel obstruction: Code(s): K56.609 - Unspecified intestinal obstruction, unspecified as to partial versus complete obstruction Status: Acute (7) Ileostomy status: Code(s): Z93.2 - Ileostomy status Status: Acute (8) COPD (chronic obstructive pulmonary disease): Code(s): J44.9 - Chronic obstructive pulmonary disease, unspecified Status: Acute (9) Anxiety and depression: Code(s): F41.9 - Anxiety disorder, unspecified; F32.A - Depression, unspecified Status: Acute (10) ITALO (acute kidney injury): Code(s): N17.9 - Acute kidney failure, unspecified Status: Acute Plan A pleasant 62-year-old female with a past medical history of paranoid schizophrenia, anxiety, hypothyroidism, GERD, essential hypertension, COPD and complex surgical history with necrotic bowel, bowel resection with open abdomen with delayed closure with ileostomy placement and subsequent necrotic abdominal wound hospitalized March 09, 2023 through 04/04/2023 who presented back to the ER from [facility] with abdominal pain.?The patient initially reported that she had been having about 1 week of abdominal pain and decreased oral intake.? But after further questioning she reports that she has been having escalating abdominal pain for about a month but she did want to bother any body.? She was also having accompanying nausea.? But over the last week she has developed decreased ostomy output and only had about 10 mL of output all day prior to coming to the ER.? She had had several large emesis at the detention today.? She received Zofran in route to the hospital.? About 2 hours after arrival hospital she had another large amount of emesis.? She denied any fevers or chills.? She she has had decreased oral intake will last couple of weeks and feels as if she has lost weight.? CT scan with contrast performed in the ER demonstrated small-bowel obstruction with transition point in the right lower abdominal quadrant adjacent to an intra-abdominal abscess that measured 6.5 x 4.8 x 10.5 with associated fistulous connection to the adjacent dilated small bowel with abscess extending through the lateral abdominal herniation and involving the right ilial psoas muscle and right abdominal sidewall.? She reported to the ER staff that she was having some burning with urination for about a week but is associated with decreased urine output not increased frequency or urgency.? UA in the ER was unremarkable.? However intra-abdominal abscess is causing moderate obstructive uropathy on the right.? BMP in the ER did demonstrate acute kidney injury and hyperkalemia.? The patient had been evaluated for hyperkalemia in the ER in May and was discharged back to the detention on .? She is not on any potassium supplements.? History present illness comes from review of prior medical records, ER report and nursing report.?The patient provide some history but has significant psychiatric disorder which makes history process
[2023-08-16 18:23] LABS: Hematocrit 23.7 % (37.0-47.0); Hemoglobin 7.5 g/dL (12.0-15.0)
[2023-08-16] MEDS: HYDROmorphone HCL INJ (*CRX) 1 MG/ML SYR 0.5 MG IV PUSH (21:28)
[2023-08-16 21:40] LABS: Vancomycin Random 12.1 ug/mL (10-20)
[2023-08-16] MEDS: LORazepam INJ (*CRX) 2 MG/ML VIAL 0.5 MG IV PUSH (22:23)
[2023-08-17] VITALS (11 sets, daily range): BP systolic 108–138; BP diastolic 56–67; PULSE 62–112; RESP 18–20; TEMP 36.5–36.7; O2SAT 98–100
[2023-08-17] MEDS: VANCOMYCIN 1,000 MG/NS 250 ML 1,000 MG/250 ML BAG 250 MG IVPB (01:54)
[2023-08-17] MEDS: ONDANSETRON INJ 4 MG/2 ML VIAL IV PUSH ×4 (03:15→21:49)
[2023-08-17] MEDS: HYDROmorphone HCL INJ (*CRX) 1 MG/ML SYR 0.5 MG IV PUSH (03:27)
[2023-08-17 05:53] LABS: Basophils Percent Auto 0.3 % (0.2-1.2); Eosinophils Percent Auto 0.3 % (0-4.4); Hematocrit 26.2 % (37.0-47.0); Hemoglobin 7.9 g/dL (12.0-15.0); Immature Granulocyte Absolute 0.03 K/mm3 (0.00-0.031); Immature Granulocyte Percent A 0.5 % (0-0.5); Lymphocytes Absolute Auto 0.85 K/mm3 (0.9-3.2); Lymphocytes Percent Auto 14.2 % (18.3-44.2); Mean Corpuscular HGB Conc 30.2 g/dl (32-36); Mean Corpuscular Hemoglobin 25.7 pg (26-34); Mean Corpuscular Volume 85.3 fl (80-100); Mean Platelet Volume 10.2 fl (7.4-10.4); Monocytes Absolute Auto 0.6 K/mm3 (0.1-0.6); Monocytes Percent Auto 9.5 % (2.6-8.5); Neutrophils Absolute Auto 4.5 K/mm3 (1.3-6.7); Neutrophils Percent Auto 75.2 % (45.5-73.1); Platelet Count Result 294 k/mm3 (150-375); Red Blood Count 3.07 M/mm3 (4.2-5.4)
[2023-08-17 06:05] LABS: Alanine Aminotransferase 15 U/L (6-35); Albumin Level 2.7 g/dL (3.5-5.1); Alkaline Phosphatase 102 U/L (38-126); Anion Gap 4 mmol/L (4-12); Aspartate Amino Transferase 20 U/L (14-36); Bilirubin,Total 0.2 mg/dL (0.2-1.3); Blood Urea Nitrogen 8 mg/dL (7-17); Calcium 8.4 mg/dL (8.4-10.2); Carbon Dioxide 25 mmol/L (22-30); Chloride 107 mmol/L (98-107); Estimated CRCL calculation 36 ml/min; Estimated Glomerular Filt Rate 56; Glucose 115 mg/dL (65-110); Magnesium 1.5 mg/dL (1.6-2.3); Potassium 3.5 mmol/L (3.4-5.0); Sodium 136 mmol/L (137-145)
[2023-08-17] MEDS: metroNIDAZOLE 500 MG/ISO 100ML 500 MG/100 ML BAG 100 MG IVPB ×3 (06:06→21:47)
[2023-08-17] MEDS: LEVOTHYROXINE SODIUM INJ 100 MCG/5 ML VIAL 25 MCG IV PUSH (06:06)
[2023-08-17] MEDS: LACTATED RINGERS 1,000 ML 100 ML IV CONT (06:07)
[2023-08-17] MEDS: FLUTICASONE/SALMETEROL 45-21 MCG INHALER 1 PUFF 2 PUFF INHALATION ×2 (07:41→21:18)
[2023-08-17] MEDS: CEFEPIME 1 GM/NS 50 ML 1 GM/50 ML BAG IVPB ×2 (09:04→21:45)
[2023-08-17] MEDS: PANTOPRAZOLE SODIUM IV 40 MG VIAL IV PUSH (09:24)
[2023-08-17] MEDS: THIAMINE HCL 200 MG/2 ML VIAL 100 MG IV PUSH (09:24)
[2023-08-17] MEDS: MAGNESIUM SULF 2 GM/WATER 50ML 2 GM/50 ML BAG IVPB (09:49)
--- NOTE | 2023-08-17 10:40 | PCPTNOTE ---
attempted PT eval at 1040-- pt out of room for testing.
[2023-08-17] MEDS: FOLIC ACID 1 MG/0.2 ML INJ IV PUSH (10:53)
--- NOTE | 2023-08-17 11:45 | PCPTNOTE ---
attempted PT eval; pt sitting up in bed vomiting and refused PT; pt given wet washcloth and ANDREW Shipman informed that pt ill.
--- NOTE | 2023-08-17 12:19 | PCPTNOTE ---
attempted PT evaluation, 1220; pt is sound asleep;
--- NOTE | 2023-08-17 13:46 | WPDPN ---
Progress Note: A&P Assessment and Plan (1) Intra-abdominal abscess: Code(s): K65.1 - Peritoneal abscess Status: Acute Assessment and Plan: Abscess has been drained. Repeat CT scan results are pending. The abscess has resolved then consider removing the drain in next 24 to 48 hours. Continue IV antibiotics direct the antibiotic choice based upon the culture results which are still pending. Avoid carbonated beverages. Appear to have bowel obstruction has her ostomy is working well and has good output. Continue supportive management. Subjective Date/time seen: 08/17/23 13:46 Interval history: Patient has had some nausea and some emesis today. Nursing states is mostly dry heaving. She was NPO this morning to get her CT scan but then was given some carbonated beverages and some milk. She continues to have good output through her end ileostomy. CT scan results are still pending. White blood cell count is normal and no fever. Exam GI: Other: Abdomen is soft and nondistended. Good output from her end ileostomy without any abdominal distension or significant abdominal tenderness. Right lower quadrant percutaneous drain in place. Output is low but purulent. Objective Data Vital Signs Vital Signs: Vital Signs - 24 hr 08/16/23 15:28 08/16/23 16:00 08/16/23 19:48 Temperature 36.9 C Pulse Rate 88 86 Respiratory Rate 18 Blood Pressure 136/72 Pulse Oximetry 100 99 Oxygen Delivery Room Air 08/16/23 21:49 08/16/23 20:20 08/17/23 00:00 Temperature 37.0 C Pulse Rate 82 87 73 Respiratory Rate 18 Blood Pressure 115/60 Pulse Oximetry 97 Oxygen Delivery 08/17/23 04:00 08/17/23 06:06 08/17/23 07:43 Temperature 36.6 C Pulse Rate 73 112 H Respiratory Rate 18 Blood Pressure 138/67 Pulse Oximetry 99 98 Oxygen Delivery Room Air 08/17/23 09:00 08/17/23 08:00 08/17/23 12:00 Temperature Pulse Rate 76 85 Respiratory Rate Blood Pressure Pulse Oximetry Oxygen Delivery Room Air Intake/Output Intake/Output: Intake & Output 08/14/23 08/15/23 08/16/23 08/17/23 23:59 23:59 23:59 23:59 Intake Total 1760 2760 4110 550 Output Total 2180 930 1500 425 Balance -420 1830 2610 125 Meds/Results Medications: Active Medications Generic Name Dose Route Start Last Admin Trade Name Freq PRN Reason Stop Dose Admin Enoxaparin Sodium 30 mg 08/16/23 09:00 08/17/23 09:27 Enoxaparin 30 Mg/0.3 Ml Syringe SUB-Q Not Given DAILY PARAS Folic Acid 1 mg 08/14/23 09:00 08/17/23 10:53 Folic Acid 1 Mg/0.2 Ml Inj IV PUSH 1 mg QAM PARAS Administration Hydromorphone HCl 0.5 mg 08/14/23 03:30 08/17/23 03:27 Hydromorphone Hcl Inj (*Crx) 1 Mg/Ml Syr IV PUSH 0.5 mg Q3H PRN Administration Pain Rated 7-10 Lactated Ringer's 1,000 mls @ 50 mls/hr 08/13/23 23:20 08/17/23 06:07 Lr - Lactated Ringers Iv IV CONT 100 mls/hr .Q20H PARAS Administration Metronidazole 500 mg in 100 mls @ 100 mls/hr 08/14/23 12:15 08/17/23 07:06 Flagyl 500 Mg/Iso Soln 100 Ml IVPB Infused Q8HR PARAS Infusion Cefepime HCl 1 gm in 50 mls @ 100 mls/hr 08/15/23 09:00 08/17/23 09:34 Maxipime 1 Gm/Ns 50 Ml IVPB Infused Q12H PARAS Infusion Levalbuterol HCl 0.63 mg 08/14/23 04:10 08/14/23 20:37 Levalbuterol Neb 1.25 Mg/3 Ml INHALATION 0.63 mg Q6HRT PRN Administration Shortness of breath/wheezing Levothyroxine Sodium 25 mcg 08/14/23 06:30 08/17/23 06:06 Levothyroxine Sodium Inj 100 Mcg/5 Ml Vial IV PUSH 25 mcg DAILY@0630 PARAS Administration Lorazepam 0.5 mg 08/14/23 03:29 08/16/23 22:23 Lorazepam Inj (*Crx) 2 Mg/Ml Vial IV PUSH 0.5 mg Q6H PRN Administration Anxiety Ondansetron HCl 4 mg 08/15/23 00:09 08/17/23 09:04 Ondansetron Inj 4 Mg/2 Ml Vial IV PUSH 4 mg Q6H PRN Administration Nausea And Vomiting Pantoprazole Sodium 40 mg 08/14/23 09:00 08/17/23 09:24 Pantoprazole Sodium
--- NOTE | 2023-08-17 21:46 | ECG_ITS ---
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 Measurements Intervals Plush Rate: 69 P: 60 HI: 128 QRS: 70 QRSD: 71 T: 76 QT: 419 QTc: 450 Interpretive Statements SINUS RHYTHM No previous ECG available for comparison Electronically Signed On 08-18-2023 12:06:29 CDT by Jerzy Rosas M.D.
[2023-08-17] MEDS: LORazepam INJ (*CRX) 2 MG/ML VIAL 0.5 MG IV PUSH (21:48)
[2023-08-17] MEDS: lamoTRIgine 100 MG TABLET PO (21:49)
[2023-08-17 22:48] LABS: Vancomycin Random 15.2 ug/mL (10-20)
[2023-08-18] VITALS (7 sets, daily range): BP systolic 100–113; BP diastolic 60–68; PULSE 62–86; RESP 16–18; TEMP 36.6–36.8; O2SAT 99–100
[2023-08-18] MEDS: metroNIDAZOLE 500 MG/ISO 100ML 500 MG/100 ML BAG 100 MG IVPB ×2 (05:42→21:25)
[2023-08-18] MEDS: LEVOTHYROXINE SODIUM INJ 100 MCG/5 ML VIAL 25 MCG IV PUSH (05:44)
[2023-08-18] MEDS: LACTATED RINGERS 1,000 ML 50 ML IV CONT (05:46)
[2023-08-18 06:10] LABS: Estimated CRCL calculation 43 ml/min; Estimated Glomerular Filt Rate > 60
[2023-08-18] MEDS: FLUTICASONE/SALMETEROL 45-21 MCG INHALER 1 PUFF 2 PUFF INHALATION ×2 (07:30→20:26)
--- NOTE | 2023-08-18 09:04 | PCOTNOTE ---
Attempted to see pt for occupational therapy for treatment. Pt declined to participate in therapy treatment stating I'm depressed...I'm not doing anything. Pt declined to further elaborate on why she is depressed. Therapist educated pt on speaking with dr/nurse and/or Eveline if needed; pt declined all education suggestions. Will attempt at another time for continued therapy services.
[2023-08-18] MEDS: hydrOXYzine HCL 25 MG TABLET PO ×4 (09:14→20:36)
[2023-08-18] MEDS: ATORVASTATIN 40 MG TABLET PO (09:14)
[2023-08-18] MEDS: METOPROLOL SUCCINATE EXT REL 25 MG TABCR 75 MG PO (09:14)
[2023-08-18] MEDS: DULoxetine HCL 20 MG CAPSULE.DR 40 MG PO (09:14)
[2023-08-18] MEDS: ASCORBIC ACID 500 MG TABLET PO (09:14)
[2023-08-18] MEDS: lamoTRIgine 100 MG TABLET PO ×2 (09:15→20:36)
[2023-08-18] MEDS: CEFEPIME 1 GM/NS 50 ML 1 GM/50 ML BAG IVPB ×2 (09:15→20:31)
[2023-08-18] MEDS: risperiDONE 0.5 MG TABLET PO (09:15)
--- NOTE | 2023-08-18 09:56 | PM.IMPN ---
Progress Note: A&P Assessment and Plan (1) Sepsis: Qualifiers: Sepsis type: sepsis due to unspecified organism Sepsis acute organ dysfunction status: with acute organ dysfunction Severe sepsis acute organ dysfunction type: acute renal failure Acute renal failure type: unspecified Severe sepsis shock status: without septic shock Qualified Code(s): A41.9 - Sepsis, unspecified organism; R65.20 - Severe sepsis without septic shock; N17.9 - Acute kidney failure, unspecified Code(s): A41.9 - Sepsis, unspecified organism Status: Acute (2) Paranoid schizophrenia: Code(s): F20.0 - Paranoid schizophrenia Status: Acute (3) Urinary retention: Code(s): R33.9 - Retention of urine, unspecified Status: Acute (4) Acute hyperkalemia: Code(s): E87.5 - Hyperkalemia Status: Acute (5) Intra-abdominal abscess: Code(s): K65.1 - Peritoneal abscess Status: Acute (6) Small bowel obstruction: Code(s): K56.609 - Unspecified intestinal obstruction, unspecified as to partial versus complete obstruction Status: Acute (7) Ileostomy status: Code(s): Z93.2 - Ileostomy status Status: Acute (8) COPD (chronic obstructive pulmonary disease): Code(s): J44.9 - Chronic obstructive pulmonary disease, unspecified Status: Acute (9) Anxiety and depression: Code(s): F41.9 - Anxiety disorder, unspecified; F32.A - Depression, unspecified Status: Acute (10) ITALO (acute kidney injury): Code(s): N17.9 - Acute kidney failure, unspecified Status: Acute Plan A pleasant 62-year-old female with a past medical history of paranoid schizophrenia, anxiety, hypothyroidism, GERD, essential hypertension, COPD and complex surgical history with necrotic bowel, bowel resection with open abdomen with delayed closure with ileostomy placement and subsequent necrotic abdominal wound hospitalized March 09, 2023 through 04/04/2023 who presented back to the ER from [facility] with abdominal pain.?The patient initially reported that she had been having about 1 week of abdominal pain and decreased oral intake.? But after further questioning she reports that she has been having escalating abdominal pain for about a month but she did want to bother any body.? She was also having accompanying nausea.? But over the last week she has developed decreased ostomy output and only had about 10 mL of output all day prior to coming to the ER.? She had had several large emesis at the group home today.? She received Zofran in route to the hospital.? About 2 hours after arrival hospital she had another large amount of emesis.? She denied any fevers or chills.? She she has had decreased oral intake will last couple of weeks and feels as if she has lost weight.? CT scan with contrast performed in the ER demonstrated small-bowel obstruction with transition point in the right lower abdominal quadrant adjacent to an intra-abdominal abscess that measured 6.5 x 4.8 x 10.5 with associated fistulous connection to the adjacent dilated small bowel with abscess extending through the lateral abdominal herniation and involving the right ilial psoas muscle and right abdominal sidewall.? She reported to the ER staff that she was having some burning with urination for about a week but is associated with decreased urine output not increased frequency or urgency.? UA in the ER was unremarkable.? However intra-abdominal abscess is causing moderate obstructive uropathy on the right.? BMP in the ER did demonstrate acute kidney injury and hyperkalemia.? The patient had been evaluated for hyperkalemia in the ER in May and was discharged back to the group home on .? She is not on any potassium supplements.? History present illness comes from review of prior medical records, ER report and nursing report.?The patient provide some history but has significant psychiatric disorder which makes history process
[2023-08-18] MEDS: PANTOPRAZOLE 40 MG TABLET PO (09:57)
[2023-08-18] MEDS: MULTIVITAMINS THERAPEUTIC TAB (*BKC) 1 TABLET PO (09:57)
[2023-08-18] MEDS: FOLIC ACID 1 MG TABLET PO (09:59)
[2023-08-18] MEDS: THIAMINE HCL 100 MG TABLET PO (09:59)
--- NOTE | 2023-08-18 11:22 | WPDPN ---
Progress Note: A&P Assessment and Plan (1) Intra-abdominal abscess: Code(s): K65.1 - Peritoneal abscess Status: Acute Assessment and Plan: Sepsis has resolved and the abscess is well drained now. White blood count is normal. Will likely remove the drain tomorrow. Due to the severe right hydronephrosis seen on CT scan and consult Urology to see the patient to see if there is any reason for intervention. Subjective Date/time seen: 08/18/23 11:22 Interval history: Patient seems to do well today. No nausea today. Able to take some Ensure today. Still having good ostomy output from her ileostomy. CT scan abdomen pelvis today in follow-up on the drainage of the abscess cavity shows minimal fluid left in the abscess cavity. Drain is in good expected position. White blood count remains normal no fever. There was a finding of severe right hydronephrosis on the CT scan. Exam GI: Other: Abdomen is soft and nondistended. End ileostomy in the right side of the abdomen has copious amounts of output. Ostomy seems to be working well. The lower quadrant percutaneous drain is in place. Output is minimal. Objective Data Vital Signs Vital Signs: Vital Signs - 24 hr 08/17/23 12:00 08/17/23 14:00 08/17/23 16:59 Temperature 36.7 C Pulse Rate 85 85 91 Respiratory Rate 20 Blood Pressure 124/61 Pulse Oximetry 100 Oxygen Delivery 08/17/23 21:20 08/17/23 21:20 08/17/23 20:00 Temperature Pulse Rate 74 62 Respiratory Rate 18 Blood Pressure Pulse Oximetry 99 Oxygen Delivery Room Air 08/17/23 20:00 08/17/23 22:00 08/18/23 00:00 Temperature 36.5 C Pulse Rate 65 62 Respiratory Rate 18 Blood Pressure 108/56 L Pulse Oximetry 100 Oxygen Delivery Room Air 08/18/23 06:00 Temperature 36.8 C Pulse Rate 77 Respiratory Rate 16 Blood Pressure 113/60 Pulse Oximetry 100 Oxygen Delivery Intake/Output Intake/Output: Intake & Output 08/15/23 08/16/23 08/17/23 08/18/23 23:59 23:59 23:59 23:59 Intake Total 2760 4110 2593.3 1520.8 Output Total 930 1500 1205 700 Balance 1830 2610 1388.3 820.8 Meds/Results Medications: Active Medications Generic Name Dose Route Start Last Admin Trade Name Freq PRN Reason Stop Dose Admin Acetaminophen 650 mg 08/18/23 08:53 Acetaminophen 325 Mg Tablet PO Q4-6H PRN Pain Albuterol 2 puff 08/17/23 19:39 Albuterol Sulfate (*Sp) Aerosol 1 Puff INHALATION Q4-6H PRN Shortness Of Breath Or Wheezing Ascorbic Acid 500 mg 08/18/23 09:00 08/18/23 09:14 Ascorbic Acid 500 Mg Tablet PO 500 mg DAILY PARAS Administration Aspirin 81 mg 08/19/23 08:00 Aspirin 81 Mg Chewable Tablet PO DAILY@0800 PARAS Atorvastatin Calcium 40 mg 08/18/23 09:00 08/18/23 09:14 Atorvastatin 40 Mg Tablet PO 40 mg DAILY PARAS Administration Duloxetine HCl 40 mg 08/18/23 09:00 08/18/23 09:14 Duloxetine Hcl 20 Mg Capsule.Dr PO 40 mg DAILY PARAS Administration Enoxaparin Sodium 30 mg 08/16/23 09:00 08/17/23 09:27 Enoxaparin 30 Mg/0.3 Ml Syringe SUB-Q Not Given DAILY PARAS Folic Acid 1 mg 08/18/23 09:00 08/18/23 09:59 Folic Acid 1 Mg Tablet PO 1 mg DAILY PARAS Administration Gabapentin 300 mg 08/18/23 21:00 Gabapentin 300 Mg Capsule PO HS PARAS Hydromorphone HCl 0.5 mg 08/14/23 03:30 08/17/23 03:27 Hydromorphone Hcl Inj (*Crx) 1 Mg/Ml Syr IV PUSH 0.5 mg Q3H PRN Administration Pain Rated 7-10 Hydroxyzine HCl 25 mg 08/18/23 09:00 08/18/23 09:14 Hydroxyzine Hcl 25 Mg Tablet PO 25 mg QID PARAS Administration Metronidazole 500 mg in 100 mls @ 100 mls/hr 08/14/23 12:15 08/18/23 06:42 Flagyl 500 Mg/Iso Soln 100 Ml IVPB Infused Q8HR PARAS Infusion Cefepime HCl 1 gm in 50 mls @ 100 mls/hr 08/15/23 09:00 08/18/23 09:15 Maxipime 1 Gm/Ns 50 Ml IVPB 100 mls/hr Q12H PARAS Administration Lamotrigine 100 mg 08/17/23 21:00 08/17
[2023-08-18] MEDS: metroNIDAZOLE 500 MG/ISO 100ML 500 MG/100 ML BAG 200 MG IVPB (14:47)
[2023-08-18] MEDS: ALBUTEROL SULFATE (*SP) AEROSOL 1 PUFF 2 PUFF INHALATION (20:29)
[2023-08-18] MEDS: LORazepam INJ (*CRX) 2 MG/ML VIAL 0.5 MG IV PUSH (20:31)
[2023-08-18] MEDS: HYDROmorphone HCL INJ (*CRX) 1 MG/ML SYR 0.5 MG IV PUSH (20:34)
[2023-08-18] MEDS: GABAPENTIN 300 MG CAPSULE PO (20:35)
[2023-08-18] MEDS: MELATONIN 3 MG TABLET PO (20:36)
[2023-08-18] MEDS: ONDANSETRON HCL ODT 4 MG TABLET PO (20:36)
[2023-08-19] VITALS (7 sets, daily range): BP systolic 80–112; BP diastolic 44–60; PULSE 71–119; RESP 14–18; TEMP 35.8–36.8; O2SAT 96–100
[2023-08-19] MEDS: metroNIDAZOLE 500 MG/ISO 100ML 500 MG/100 ML BAG 100 MG IVPB (05:40)
[2023-08-19] MEDS: LEVOTHYROXINE SODIUM 50 MCG TABLET PO (05:40)
[2023-08-19] MEDS: LORazepam INJ (*CRX) 2 MG/ML VIAL 0.5 MG IV PUSH ×2 (06:11→16:17)
[2023-08-19 06:23] LABS: Basophils Percent Auto 0.4 % (0.2-1.2); Eosinophils Absolute Auto 0.1 K/mm3 (0-0.3); Eosinophils Percent Auto 0.9 % (0-4.4); Hematocrit 26.4 % (37.0-47.0); Immature Granulocyte Absolute 0.04 K/mm3 (0.00-0.031); Immature Granulocyte Percent A 0.7 % (0-0.5); Lymphocytes Absolute Auto 1.03 K/mm3 (0.9-3.2); Lymphocytes Percent Auto 18.8 % (18.3-44.2); Mean Corpuscular HGB Conc 30.3 g/dl (32-36); Mean Corpuscular Hemoglobin 26.1 pg (26-34); Mean Platelet Volume 9.9 fl (7.4-10.4); Monocytes Absolute Auto 0.6 K/mm3 (0.1-0.6); Monocytes Percent Auto 10.9 % (2.6-8.5); Neutrophils Absolute Auto 3.7 K/mm3 (1.3-6.7); Neutrophils Percent Auto 68.3 % (45.5-73.1); Platelet Count Result 291 k/mm3 (150-375); Red Blood Count 3.07 M/mm3 (4.2-5.4); Red Cell Distribution Width 16.1 % (11.5-14.5); White Blood Count 5.5 K/mm3 (4.5-10.0)
[2023-08-19 06:54] LABS: Alanine Aminotransferase 14 U/L (6-35); Albumin Level 2.4 g/dL (3.5-5.1); Alkaline Phosphatase 79 U/L (38-126); Anion Gap 2 mmol/L (4-12); Aspartate Amino Transferase 23 U/L (14-36); Bilirubin,Total 0.2 mg/dL (0.2-1.3); Blood Urea Nitrogen 7 mg/dL (7-17); Calcium 7.6 mg/dL (8.4-10.2); Carbon Dioxide 27 mmol/L (22-30); Chloride 107 mmol/L (98-107); Estimated CRCL calculation 43 ml/min; Estimated Glomerular Filt Rate > 60; Glucose 75 mg/dL (65-110); Magnesium 1.9 mg/dL (1.6-2.3); Potassium 2.8 mmol/L (3.4-5.0); Sodium 136 mmol/L (137-145)
--- NOTE | 2023-08-19 08:07 | WPDURCON ---
Assessment and Plan Assessment and plan (1) Hydronephrosis: Code(s): N13.30 - Unspecified hydronephrosis Status: Acute Assessment and Plan: This is likely related to retroperitoneal inflammation due to her large upper abdominal wall abscess on the right side. I suspect her obstruction of the kidney is only a partial obstruction. There is no flank pain. There is a normal creatinine. She has minimal delayed nephrogram. In addition she is a poor candidate for a stent. In light of all these factors I would recommend only observation. Hydronephrosis should resolve as the inflammation resolves from infection. I would recommend repeat CT scan in 1 month to hopefully document resolution of abscess and hydronephrosis Urology Consult Note HPI Date Seen: 08/19/23 Requesting Physician: Rachel Wood DO Primary Care Provider: Carlyle Coyne, Consult Narrative Narrative: Jeanne Fragoso is a 62 year old female. With quite a complicated gastrointestinal past medical history. She has had bowel perforation with exploratory laparotomy in the past. She is now admitted with intra-abdominal abscess which could be due to a fistulization with the bowel. From urologic perspective CT scan had shown moderate right hydronephrosis. I reviewed the chart and spoke to Dr. Kim. I have seen the patient as well. She has a normal creatinine. She has no flank pain. I reviewed the CT scan. There is a mildly delayed nephrogram. The hydronephrosis is limited to the upper ureter and UPJ region. I suspect it is only partially obstructive. This is likely secondary to retroperitoneal inflammation due to the right upper abdominal wall abscess. It currently has a drain. Subsequent CT scans have shown decreased size of abscess. Review of Systems Review of Systems: ROS unobtainable: Yes unobtainable due to medical condition [facility] Past Medical History Medical History Borderline personality disorder Chronic back pain COPD (chronic obstructive pulmonary disease) ERIKA (generalized anxiety disorder) History of MRSA infection With MRSA screen 08/13/2023 being negative HLD (hyperlipidemia) Hypothyroid IBS (irritable bowel syndrome) MDD (major depressive disorder) Paranoid schizophrenia Surgical History Surgical History History of abdominal surgery no current documentation available, midline incision - likely laparotomy. Unclear if from choley. History of x2 History of cholecystectomy Family History Family History Other Heart attack Social History Social History Social History: Was resident at [facility] ([phone]), previously at [facility] in [place], [place] ([phone]). After her prolonged hospitalization February through March the patient was discharged to [facility]. Code status: Full Code per EMR however the patient's state resuscitation form states that she wants to be a full code but then confusing the matter the box regarding comfort based treatment is also marked. This will need to be clarified with the patient and her daughter. Surrogate decision maker: Camille Weinberg (daughter) Smoking status: Current every day smoker Tobacco type: cigarettes Alcohol intake: never Substance use: never Do You Feel Safe in your Home?: Yes Lack of Transportation: No Lack of Food: Never True Current Housing: I Have Housing Concerned About Future Housing: No Difficulty Paying Gas/Electric Bills: No Difficulty Paying for Meds: No Currently Unemployed: No Education: Decline to Answer Difficulty w/ Childcare or Family Care: No Spiritual care concerns: No Meds Home Medications and Allergies Home Medications Medication Instr
[2023-08-19] MEDS: POTASSIUM CHLORIDE INJ 40 MEQ in SODIUM CHLORIDE 0.9% IV 500 ML 130 MEQ IVPB (08:10)
[2023-08-19] MEDS: lamoTRIgine 100 MG TABLET PO ×2 (08:55→20:54)
[2023-08-19] MEDS: ASCORBIC ACID 500 MG TABLET PO (08:55)
[2023-08-19] MEDS: ASPIRIN 81 MG CHEWABLE TABLET PO (08:55)
[2023-08-19] MEDS: ATORVASTATIN 40 MG TABLET PO (08:55)
[2023-08-19] MEDS: risperiDONE 0.5 MG TABLET PO (08:55)
[2023-08-19] MEDS: POTASSIUM CHLORIDE 20 MEQ ER TABLET 40 MEQ PO (08:56)
[2023-08-19] MEDS: hydrOXYzine HCL 25 MG TABLET PO ×4 (08:56→20:54)
[2023-08-19] MEDS: THIAMINE HCL 100 MG TABLET PO (08:56)
[2023-08-19] MEDS: MULTIVITAMINS THERAPEUTIC TAB (*BKC) 1 TABLET PO (08:56)
[2023-08-19] MEDS: METOPROLOL SUCCINATE EXT REL 25 MG TABCR 75 MG PO (08:56)
[2023-08-19] MEDS: PANTOPRAZOLE 40 MG TABLET PO (08:56)
[2023-08-19] MEDS: DULoxetine HCL 20 MG CAPSULE.DR 40 MG PO (08:57)
[2023-08-19] MEDS: FOLIC ACID 1 MG TABLET PO (08:57)
[2023-08-19] MEDS: HYDROmorphone HCL INJ (*CRX) 1 MG/ML SYR 0.5 MG IV PUSH (09:21)
[2023-08-19] MEDS: FLUTICASONE/SALMETEROL 45-21 MCG INHALER 1 PUFF 2 PUFF INHALATION ×2 (09:56→20:26)
[2023-08-19] MEDS: ALBUTEROL SULFATE (*SP) AEROSOL 1 PUFF 2 PUFF INHALATION ×2 (09:59→14:40)
--- NOTE | 2023-08-19 11:47 | PCNFU ---
Nutrition Follow-Up Complete: Inadequate oral intake related to NPO/CL diet as evidenced by patient not having met estimated nutrition needs x 3 days. Goal:1. Diet to be advanced by f/u. 2. Weight to remain at or above current weight of 48.1 kg. pt is meeting goal. New goal of 75% intake of meals. Pt current nutrition is Heart healthy, Ensure Clear TID with meals. Nutrition recommendation: continue with current plan of care Last recorded weight is 48.1 kg. Bowel Motility: +BM / Labs Reviewed: Hgb:8.0, HCT:26.4, Alb:2.4, NA:136, K:2.8 Meds Noted: folic acid, ativan, zofran, protonix, thiamine Skin: no skin issues noted Additional Notes: Pt on a heart healthy diet, tolerating well, intake good at 50-75%, pt asking for higher calories, explained the Ensure Clear TID is offering her additional calories and to continue drinking those along with eating meals. Encouraged snacks as needed. Recommend to liberalize diet to regular. Monitor diet advancement, weight, labs, appetite. Follow up in 7 days.
[2023-08-19] MEDS: MEROPENEM 1 GM/NS 100 ML 1 GM/100 ML BAG IVPB ×2 (13:04→20:54)
--- NOTE | 2023-08-19 16:16 | PM.PNGS ---
Progress Note: A&P Assessment and Plan (1) Intra-abdominal abscess: Code(s): K65.1 - Peritoneal abscess Status: Acute Assessment and Plan: Sepsis resolved. Abscess percutaneously drained in Radiology with drain still in place with 100 cc output last night and some output in bag today. Repeat CT scan showed drain in good position with only minimal fluid left in abscess cavity. Will monitor the percutaneous drain while still having output. WBC normal. Urology evaluated patient for severe right hydronephrosis and recommends monitoring for now, no plans for urologic intervention. Plan I have discussed the patient's case and plan of care with Dr. Kim. Subjective Subjective Date/Time Seen: 08/19/23 16:16 Patient reports: no new complaints Interval history: Patient drinking Ensure and trying to eat more today. Still has good ostomy output. Denies any abdominal pain, nausea, or vomiting. She is tearful today due to being in the hospital, but no other complaints. Exam Const: General: no acute distress GI: Inspection: non-distended GI Palp: Yes Soft to palpation, No Tenderness to palpation present (GI), No Guarding due to palpation present (GI) and No Rebound tenderness present Auscultation: normal bowel sounds Other: Right-sided end ileostomy functioning well with moderate output in bag. The right lower quadrant percutaneous drain is in place with about 60-70 cc output in bag that is thin light brown liquid. Objective Data Vital Signs Vital Signs: Vital Signs - 24 hr 08/18/23 20:25 08/18/23 20:36 08/18/23 20:00 Temperature Pulse Rate 66 66 Respiratory Rate 18 18 Blood Pressure Pulse Oximetry 99 99 Oxygen Delivery Room Air Room Air Fraction of Inspired Oxygen 08/18/23 22:00 08/19/23 06:00 08/19/23 08:00 Temperature 97.8 F 96.4 F L Pulse Rate 86 75 Respiratory Rate 18 14 Blood Pressure 112/62 105/53 L Pulse Oximetry 100 100 Oxygen Delivery Room Air Fraction of Inspired Oxygen 21 08/19/23 14:00 08/19/23 14:39 08/19/23 16:11 Temperature 97.4 F L Pulse Rate 98 Respiratory Rate 18 Blood Pressure 94/60 L 112/58 L Pulse Oximetry 100 96 Oxygen Delivery Room Air Fraction of Inspired Oxygen Intake/Output Intake/Output: Intake & Output 0508/17/23 08/18/23 08/19/23 23:59 23:59 23:59 23:59 Intake Total 4110 2593.3 2550.8 420 Output Total 1500 1205 2019 100 Balance 2610 1388.3 530.8 320 Meds/Results Medications: Active Medications Generic Name Dose Route Start Last Admin Trade Name Freq PRN Reason Stop Dose Admin Acetaminophen 650 mg 08/18/23 08:53 Acetaminophen 325 Mg Tablet PO Q4-6H PRN Pain Albuterol 2 puff 08/17/23 19:39 08/19/23 14:40 Albuterol Sulfate (*Sp) Aerosol 1 Puff INHALATION 2 puff Q4-6H PRN Administration Shortness Of Breath Or Wheezing Ascorbic Acid 500 mg 08/18/23 09:00 08/19/23 08:55 Ascorbic Acid 500 Mg Tablet PO 500 mg DAILY PARAS Administration Aspirin 81 mg 08/19/23 08:00 08/19/23 08:55 Aspirin 81 Mg Chewable Tablet PO 81 mg DAILY@0800 PARAS Administration Atorvastatin Calcium 40 mg 08/18/23 09:00 08/19/23 08:55 Atorvastatin 40 Mg Tablet PO 40 mg DAILY PARAS Administration Duloxetine HCl 40 mg 08/18/23 09:00 08/19/23 08:57 Duloxetine Hcl 20 Mg Capsule.Dr PO 40 mg DAILY PARAS Administration Enoxaparin Sodium 40 mg 08/19/23 09:00 08/19/23 09:14 Enoxaparin 40 Mg/0.4 Ml Syringe SUB-Q Not Given DAILY PARAS Folic Acid 1 mg 08/18/23 09:00 08/19/23 08:57 Folic Acid 1 Mg Tablet PO 1 mg DAILY PARAS Administration Gabapentin 300 mg 08/18/23 21:00 08/18/23 20:35 Gabapentin 300 Mg Capsule PO 300 mg HS PARAS Administration Hydromorphone HCl 0.5 mg 08/14/23 03:30 08/19/23 09:21 Hydromorphone Hcl Inj (*Crx) 1 Mg/Ml Syr IV PUSH 0.5 mg Q3H PRN Administration Pain Rated 7-10 Hydroxyzine HCl 25 mg
[2023-08-19] MEDS: GABAPENTIN 300 MG CAPSULE PO (20:54)
[2023-08-19] MEDS: MELATONIN 3 MG TABLET PO (20:54)
[2023-08-19 21:15] LABS: Anion Gap 2 mmol/L (4-12); Blood Urea Nitrogen 5 mg/dL (7-17); Calcium 7.3 mg/dL (8.4-10.2); Carbon Dioxide 20 mmol/L (22-30); Chloride 112 mmol/L (98-107); Estimated CRCL calculation 39 ml/min; Estimated Glomerular Filt Rate 56; Glucose 219 mg/dL (65-110); Potassium 4.1 mmol/L (3.4-5.0); Sodium 134 mmol/L (137-145)
[2023-08-20] VITALS (9 sets, daily range): BP systolic 82–112; BP diastolic 42–58; PULSE 99–112; RESP 14–20; TEMP 35.9–36.8; O2SAT 98–100
[2023-08-20] MEDS: ONDANSETRON HCL ODT 4 MG TABLET PO ×3 (00:38→21:01)
[2023-08-20] MEDS: HYDROmorphone HCL INJ (*CRX) 1 MG/ML SYR 0.5 MG IV PUSH ×2 (00:38→06:19)
[2023-08-20] MEDS: LORazepam INJ (*CRX) 2 MG/ML VIAL 0.5 MG IV PUSH ×2 (00:40→06:20)
[2023-08-20] MEDS: LEVOTHYROXINE SODIUM 50 MCG TABLET PO (06:19)
--- NOTE | 2023-08-20 06:39 | PC.NURSE ---
This patient has had a very emotional night. This nurse and paired tech sat with patient for approximately one hour. During which time, patient described history that reflects her emotional state. Patient is very tearful stating that she would not like to return to [place] and that she would prefer to go back to [facility]. Patient has asked for an increase in her Ativan and would like to add Haldol. Patient states that she is ready to , but is not suicidal. Also states, that she has been a good girl and would like to learn how to care for her ostomy, cook, earn her GED, and reconnect with her two daughters. Patient describes feeling lonely and alone and is having frequent nightmares. Recommended to patient that she speak with the doctor and critical care clinical nurse specialist about placement and medication changes.
[2023-08-20 06:45] LABS: Basophils Percent Auto 0.2 % (0.2-1.2); Eosinophils Absolute Auto 0.1 K/mm3 (0-0.3); Eosinophils Percent Auto 0.8 % (0-4.4); Hematocrit 24.2 % (37.0-47.0); Immature Granulocyte Percent A 0.9 % (0-0.5); Lymphocytes Absolute Auto 1.34 K/mm3 (0.9-3.2); Lymphocytes Percent Auto 12.2 % (18.3-44.2); Mean Corpuscular HGB Conc 28.9 g/dl (32-36); Mean Corpuscular Hemoglobin 26.2 pg (26-34); Mean Corpuscular Volume 90.6 fl (80-100); Mean Platelet Volume 10.1 fl (7.4-10.4); Monocytes Absolute Auto 0.9 K/mm3 (0.1-0.6); Monocytes Percent Auto 8.3 % (2.6-8.5); Neutrophils Absolute Auto 8.5 K/mm3 (1.3-6.7); Neutrophils Percent Auto 77.6 % (45.5-73.1); Platelet Count Result 258 k/mm3 (150-375); Red Blood Count 2.67 M/mm3 (4.2-5.4); Red Cell Distribution Width 16.3 % (11.5-14.5)
[2023-08-20 07:07] LABS: Sodium 133 mmol/L (137-145)
[2023-08-20 07:09] LABS: Alanine Aminotransferase 11 U/L (6-35); Albumin Level 2.2 g/dL (3.5-5.1); Alkaline Phosphatase 72 U/L (38-126); Anion Gap 3 mmol/L (4-12); Aspartate Amino Transferase 16 U/L (14-36); Bilirubin,Total 0.1 mg/dL (0.2-1.3); Blood Urea Nitrogen 6 mg/dL (7-17); Calcium 7.3 mg/dL (8.4-10.2); Carbon Dioxide 20 mmol/L (22-30); Chloride 110 mmol/L (98-107); Estimated CRCL calculation 34 ml/min; Estimated Glomerular Filt Rate 50; Glucose 118 mg/dL (65-110); Magnesium 1.7 mg/dL (1.6-2.3); Potassium 4.2 mmol/L (3.4-5.0)
[2023-08-20 07:24] LABS: Platelet Estimate Adequate (Adequate); Schistocytes None Seen
[2023-08-20 07:29] LABS: Anisocytosis 2+; Burr Cells 1+
[2023-08-20 07:30] LABS: Hypochromasia 1+
[2023-08-20] MEDS: FLUTICASONE/SALMETEROL 45-21 MCG INHALER 1 PUFF 2 PUFF INHALATION ×2 (08:10→19:35)
[2023-08-20] MEDS: MULTIVITAMINS THERAPEUTIC TAB (*BKC) 1 TABLET PO (08:38)
[2023-08-20] MEDS: METOPROLOL SUCCINATE EXT REL 25 MG TABCR 75 MG PO (08:38)
[2023-08-20] MEDS: ASCORBIC ACID 500 MG TABLET PO (08:38)
[2023-08-20] MEDS: lamoTRIgine 100 MG TABLET PO ×2 (08:38→20:57)
[2023-08-20] MEDS: PANTOPRAZOLE 40 MG TABLET PO (08:38)
[2023-08-20] MEDS: FOLIC ACID 1 MG TABLET PO (08:38)
[2023-08-20] MEDS: ASPIRIN 81 MG CHEWABLE TABLET PO (08:38)
[2023-08-20] MEDS: DULoxetine HCL 20 MG CAPSULE.DR 40 MG PO (08:38)
[2023-08-20] MEDS: hydrOXYzine HCL 25 MG TABLET PO ×4 (08:39→20:57)
[2023-08-20] MEDS: ATORVASTATIN 40 MG TABLET PO (08:40)
[2023-08-20] MEDS: THIAMINE HCL 100 MG TABLET PO (08:40)
[2023-08-20] MEDS: ENOXAPARIN 40 MG/0.4 ML SYRINGE SUB-Q (08:40)
[2023-08-20] MEDS: risperiDONE 0.5 MG TABLET PO (08:40)
[2023-08-20] MEDS: MEROPENEM 1 GM/NS 100 ML 1 GM/100 ML BAG IVPB ×2 (09:00→20:55)
[2023-08-20] MEDS: HYDROcodone/acetaminophen (*CRX) 10-325 MG TABLET 1 TAB PO ×2 (12:08→21:01)
[2023-08-20] MEDS: LORazepam (*CRX) 0.5 MG TABLET PO ×2 (13:40→21:01)
[2023-08-20] MEDS: SODIUM CHLORIDE 0.9% IV 500 ML IV CONT (17:20)
[2023-08-20] MEDS: ALBUTEROL SULFATE (*SP) AEROSOL 1 PUFF 2 PUFF INHALATION (19:39)
[2023-08-20] MEDS: MELATONIN 3 MG TABLET PO (20:57)
[2023-08-20] MEDS: GABAPENTIN 300 MG CAPSULE PO (20:57)
[2023-08-21] VITALS (8 sets, daily range): BP systolic 80–107; BP diastolic 39–51; PULSE 95–105; RESP 12–20; TEMP 36.2–37; O2SAT 98–100
[2023-08-21 06:02] LABS: Basophils Percent Auto 0.2 % (0.2-1.2); Eosinophils Absolute Auto 0.1 K/mm3 (0-0.3); Eosinophils Percent Auto 1.1 % (0-4.4); Hematocrit 24.5 % (37.0-47.0); Hemoglobin 7.4 g/dL (12.0-15.0); Immature Granulocyte Absolute 0.12 K/mm3 (0.00-0.031); Immature Granulocyte Percent A 1.2 % (0-0.5); Lymphocytes Absolute Auto 1.41 K/mm3 (0.9-3.2); Lymphocytes Percent Auto 14.1 % (18.3-44.2); Mean Corpuscular HGB Conc 30.2 g/dl (32-36); Mean Corpuscular Hemoglobin 27.2 pg (26-34); Mean Corpuscular Volume 90.1 fl (80-100); Mean Platelet Volume 9.9 fl (7.4-10.4); Monocytes Absolute Auto 0.8 K/mm3 (0.1-0.6); Monocytes Percent Auto 8.1 % (2.6-8.5); Neutrophils Absolute Auto 7.6 K/mm3 (1.3-6.7); Neutrophils Percent Auto 75.3 % (45.5-73.1); Platelet Count Result 295 k/mm3 (150-375); Red Blood Count 2.72 M/mm3 (4.2-5.4); Red Cell Distribution Width 16.7 % (11.5-14.5)
[2023-08-21] MEDS: HYDROcodone/acetaminophen (*CRX) 10-325 MG TABLET 1 TAB PO ×2 (06:08→16:29)
[2023-08-21] MEDS: LEVOTHYROXINE SODIUM 50 MCG TABLET PO (06:09)
[2023-08-21] MEDS: ONDANSETRON HCL ODT 4 MG TABLET PO ×2 (06:09→23:52)
[2023-08-21] MEDS: LORazepam (*CRX) 0.5 MG TABLET PO ×2 (06:09→23:52)
[2023-08-21 06:10] LABS: Alanine Aminotransferase 11 U/L (6-35); Albumin Level 2.4 g/dL (3.5-5.1); Alkaline Phosphatase 80 U/L (38-126); Anion Gap 3 mmol/L (4-12); Aspartate Amino Transferase 17 U/L (14-36); Bilirubin,Total 0.2 mg/dL (0.2-1.3); Blood Urea Nitrogen 7 mg/dL (7-17); Calcium 7.8 mg/dL (8.4-10.2); Carbon Dioxide 21 mmol/L (22-30); Chloride 110 mmol/L (98-107); Estimated CRCL calculation 27 ml/min; Estimated Glomerular Filt Rate 38; Glucose 88 mg/dL (65-110); Magnesium 1.6 mg/dL (1.6-2.3); Potassium 4.7 mmol/L (3.4-5.0); Sodium 134 mmol/L (137-145)
[2023-08-21] MEDS: FLUTICASONE/SALMETEROL 45-21 MCG INHALER 1 PUFF 2 PUFF INHALATION ×2 (07:56→21:20)
[2023-08-21] MEDS: SODIUM CHLORIDE 0.9% IV 500 ML 999 ML IV CONT (08:43)
[2023-08-21] MEDS: hydrOXYzine HCL 25 MG TABLET PO ×4 (08:47→21:36)
[2023-08-21] MEDS: MULTIVITAMINS THERAPEUTIC TAB (*BKC) 1 TABLET PO (08:47)
[2023-08-21] MEDS: ENOXAPARIN 40 MG/0.4 ML SYRINGE SUB-Q (08:47)
[2023-08-21] MEDS: DULoxetine HCL 20 MG CAPSULE.DR 40 MG PO (08:47)
[2023-08-21] MEDS: THIAMINE HCL 100 MG TABLET PO (08:47)
[2023-08-21] MEDS: PANTOPRAZOLE 40 MG TABLET PO (08:47)
[2023-08-21] MEDS: ATORVASTATIN 40 MG TABLET PO (08:47)
[2023-08-21] MEDS: lamoTRIgine 100 MG TABLET PO ×2 (08:47→21:37)
[2023-08-21] MEDS: ASCORBIC ACID 500 MG TABLET PO (08:48)
[2023-08-21] MEDS: ASPIRIN 81 MG CHEWABLE TABLET PO (08:48)
[2023-08-21] MEDS: FOLIC ACID 1 MG TABLET PO (08:48)
[2023-08-21] MEDS: risperiDONE 0.5 MG TABLET PO (08:48)
[2023-08-21] MEDS: MEROPENEM 1 GM/NS 100 ML 1 GM/100 ML BAG IVPB ×2 (09:41→21:38)
--- NOTE | 2023-08-21 13:45 | PM.PNGS ---
Progress Note: A&P Assessment and Plan (1) Intra-abdominal abscess: Code(s): K65.1 - Peritoneal abscess Status: Acute Assessment and Plan: Abscess percutaneously drained in Radiology with most recent repeat CT scan showing only minimal fluid left in the abscess cavity, although she is still having output from the drain that appears the same as the enteric contents from her ileostomy, consistent with a now enterocutaneous fistula. I reviewed the CT scan with the Radiologist and there is an obvious connection from the abscess to a loop of small bowel in the right lower quadrant. This fistulous connection does not appear to be near the ileostomy. Over the past 24 hours her output from the perc drain has decreased. We will continue to monitor the drain for now and see if her output continues to slow with the hopes that the fistula could eventually close. If her output increases or she has any deterioration, then we would consider taking her back to surgery for an exploratory laparotomy with takedown of the fistula. Will continue to follow closely and monitor the fistula output. (2) Hypoalbuminemia: Code(s): E88.09 - Other disorders of plasma-protein metabolism, not elsewhere classified Status: Acute Assessment and Plan: Patient's diet has been advanced and she is now feeling more hungry and reportedly eating better, but her albumin is still low at 2.4. Encouraged oral intake. Dietitian has been following and last saw the patient on Saturday. Will start a calorie count now that she is on a regular diet to see if she is getting adequate nutrition. If not, then she may require TPN. Plan I have discussed the patient's case and plan of care with Dr. Kim. Subjective Subjective Date/Time Seen: 08/21/23 13:45 Patient reports: no new complaints and afebrile Interval history: Patient seen today and tells me she has no specific complaints and is doing well today. She is in good spirits. She still has very mild abdominal pain near the perc drain but nothing new. She also has been very hungry and reportedly has been eating all of her meals and Ensures which I can see one of the Ensure containers at her bedside is empty. No nausea or vomiting. Exam Const: General: comfortable and no acute distress Orientation/consciousness: patient oriented x3 GI: Inspection: non-distended GI Palp: Yes Soft to palpation, Yes Tenderness to palpation present (GI) (very mild tenderness in LLQ and RLQ), No Guarding due to palpation present (GI) and No Rebound tenderness present Auscultation: normal bowel sounds Other: Ileostomy functioning well with moderate brown output in bag. RLQ pigtail drain with brown output in bag that appears the same as the enteric contents coming from the ostomy. Objective Data Vital Signs Vital Signs: Vital Signs - 24 hr 08/20/23 14:00 08/20/23 16:32 08/20/23 19:35 Temperature 96.6 F L Pulse Rate 100 99 Respiratory Rate 16 20 Blood Pressure 84/42 L 82/54 L Pulse Oximetry 99 Oxygen Delivery Fraction of Inspired Oxygen 08/20/23 21:30 08/20/23 20:00 08/21/23 05:48 Temperature 97.6 F 98.1 F Pulse Rate 112 H 112 H 103 H Respiratory Rate 14 14 12 Blood Pressure 94/54 L 90/49 L Pulse Oximetry 100 100 99 Oxygen Delivery Room Air Fraction of Inspired Oxygen 21 08/21/23 07:58 08/21/23 08:55 08/21/23 12:00 Temperature 97.1 F L Pulse Rate 95 99 Respiratory Rate 20 20 Blood Pressure 80/50 L Pulse Oximetry 99 Oxygen Delivery Room Air Fraction of Inspired Oxygen 08/21/23 12:04 Temperature 97.1 F L Pulse Rate 99 Respiratory Rate 20 Blood Pressure 93/39 L Pulse Oximetry 99 Oxygen Delivery Fraction of Inspired Oxygen Intake/Output Intake/Output: Intake & Output 08/18/23 08/19/23 08/20/23 08/21/23 23:59 23:59 23:59 23:59 Intake Total 2550.8 2636 2500 1340 Output Total 2019 1585 3185 740 Balance 530.8 1051 -685 600 Meds/Results Medicat
--- NOTE | 2023-08-21 14:01 | WPDUROPN2 ---
Progress Note: A&P Assessment and Plan (1) Hydronephrosis: Code(s): N13.30 - Unspecified hydronephrosis Status: Acute Assessment and Plan: CT abdomen/pelvis on 08/16 showed severe right hydronephrosis. This is likely related to retroperitoneal inflammation due to her large right upper abdominal wall abscess and suspect only partial kidney obstruction. She has minimally delayed nephrogram. She has no flank pain or other bothersome symptoms. She is a poor candidate for stent placement. Will continue to monitor her renal function closely. Slight bump in creatinine to 1.4 noted today. Will continue to monitor. No indication for any urgent intervention. Anticipate resolution of hydronephrosis with improvement/resolution of infection and acute inflammation. If any further imaging is planned for abscess monitoring, will evaluate to determine if improvement in hydronephrosis. If no further imaging planned, would recommend repeat CT or renal ultrasound in 1 month to ensure resolution of hydronephrosis. Will continue to monitor patient's renal function and clinical status Subjective Subjective Date/Time Seen: 08/21/23 14:01 Interval history: Jeanne is doing well today. She offers no concerns. She states she is voiding without difficulty. She denies dysuria, hematuria urgency, frequency. Denies nausea, vomiting, fever, chills. She is tolerating her diet. Review of Systems Review of Systems: All systems reviewed & are unremarkable except as noted in HPI and below Exam Narrative: General: Thin, frail, alert, comfortable, no acute distress HEENT: Normocephalic, atraumatic, sclerae anicteric Respiratory: Normal respiratory effort, no accessory muscle use Abdomen: Nondistended, soft, nontender, abdominal drain with haile output, ileostomy with brown stool Skin: Normal coloration, warm and dry Neurologic: No focal neuro deficits noted Psychiatric: Appropriate mood and affect, judgment and insight intact Objective Data Vital Signs Vital Signs: Vital Signs - 24 hr 08/20/23 16:32 08/20/23 19:35 08/20/23 21:30 Temperature 97.6 F Pulse Rate 99 112 H Respiratory Rate 20 14 Blood Pressure 82/54 L 94/54 L Pulse Oximetry 100 Oxygen Delivery Fraction of Inspired Oxygen 08/20/23 20:00 08/21/23 05:48 08/21/23 07:58 Temperature 98.1 F Pulse Rate 112 H 103 H 95 Respiratory Rate 14 12 20 Blood Pressure 90/49 L Pulse Oximetry 100 99 Oxygen Delivery Room Air Fraction of Inspired Oxygen 21 08/21/23 08:55 08/21/23 12:00 08/21/23 12:04 Temperature 97.1 F L 97.1 F L Pulse Rate 99 99 Respiratory Rate 20 20 Blood Pressure 80/50 L 93/39 L Pulse Oximetry 99 99 Oxygen Delivery Room Air Fraction of Inspired Oxygen Intake/Output Intake/Output: Intake & Output 08/18/23 08/19/23 08/20/23 08/21/23 23:59 23:59 23:59 23:59 Intake Total 2550.8 2636 2500 1340 Output Total 2019 1585 3185 740 Balance 530.8 1051 -651 600 Meds/Results Medications: Active Medications Generic Name Dose Route Start Last Admin Trade Name Freq PRN Reason Stop Dose Admin Acetaminophen 650 mg 08/18/23 08:53 Acetaminophen 325 Mg Tablet PO Q4-6H PRN Pain Hydrocodone Bitart/Acetaminophen 1 tab 08/20/23 11:29 08/21/23 06:08 Hydrocodone/Acetaminophen (*Crx) 10-325 Mg Tablet PO 1 tab Q6H PRN Administration Pain Rated 7-10 Hydrocodone Bitart/Acetaminophen 1 tab 08/20/23 11:29 Hydrocodone/Acetaminophen (*Crx) 5-325 Mg Tablet PO Q6H PRN Pain Rated 4-6 Albuterol 2 puff 08/17/23 19:39 08/20/23 19:39 Albuterol Sulfate (*Sp) Aerosol 1 Puff INHALATION 2 puff Q4-6H PRN Administration Shortness Of Breath Or Wheezing Ascorbic Acid 500 mg 08/18/23 09:00 08/21/23 08:48 Ascorbic Acid 500 Mg Tablet PO 500 mg DAILY PARAS Administration Aspirin 81 mg 08/19/23 08:00 08/21/23 08:48 Aspirin 81 Mg Chewable Tablet PO 81 mg
--- NOTE | 2023-08-21 14:46 | PCNFU ---
Nutrition Follow-Up Complete: Inadequate oral intake related to NPO/CL diet as evidenced by patient not having met estimated nutrition needs x 3 days. Goal: 1. Diet to be advanced by f/u. - Goal is met 2. Weight to remain at or above current weight of 48.1 kg. - Progressing Pt current nutrition is Regular diet with Ensure Clear BID for additional 240 kcal and 8 g protein each. Nutrition recommendation: Switch supplement to Ensure Enlive TID for additional 350 kcal and 20 g protein each. Add nutritional ice cream BID for additional 270 kcal and 9 g protein each Last recorded weight is 46.1 kg. Bowel Motility: +2 BMs today 08/21/23 Labs Reviewed: Hgb 7.4, Hct 24.5, Alb 2.4, Na 134, GFR 38, Cre 1.4 Meds Noted: Folic acid, thiamine, ativan, protonix Skin: WNL Additional Notes: Appetite is much better. Pt asked Can I be on a high calorie diet? I want to gain weight offered Ensure Enlive (instead of Ensure Clear) and nutritional ice cream and pt agreeable to that. Intakes are good 50-100% meals. Pt was eating a snack when seen. Monitor diet advancement, weight, labs, appetite
--- NOTE | 2023-08-21 14:48 | PM.IMPN ---
Progress Note: A&P Assessment and Plan (1) ITALO (acute kidney injury): Code(s): N17.9 - Acute kidney failure, unspecified Status: Acute (2) Sepsis: Qualifiers: Acute renal failure type: unspecified Sepsis acute organ dysfunction status: with acute organ dysfunction Sepsis type: sepsis due to unspecified organism Severe sepsis acute organ dysfunction type: acute renal failure Severe sepsis shock status: without septic shock Qualified Code(s): A41.9 - Sepsis, unspecified organism; R65.20 - Severe sepsis without septic shock; N17.9 - Acute kidney failure, unspecified Code(s): A41.9 - Sepsis, unspecified organism Status: Acute (3) Paranoid schizophrenia: Code(s): F20.0 - Paranoid schizophrenia Status: Acute (4) Urinary retention: Code(s): R33.9 - Retention of urine, unspecified Status: Acute (5) Acute hyperkalemia: Code(s): E87.5 - Hyperkalemia Status: Acute (6) Intra-abdominal abscess: Code(s): K65.1 - Peritoneal abscess Status: Acute (7) Small bowel obstruction: Code(s): K56.609 - Unspecified intestinal obstruction, unspecified as to partial versus complete obstruction Status: Acute (8) Ileostomy status: Code(s): Z93.2 - Ileostomy status Status: Acute (9) COPD (chronic obstructive pulmonary disease): Code(s): J44.9 - Chronic obstructive pulmonary disease, unspecified Status: Acute (10) Anxiety and depression: Code(s): F41.9 - Anxiety disorder, unspecified; F32.A - Depression, unspecified Status: Acute Plan A pleasant 62-year-old female with a past medical history of paranoid schizophrenia, anxiety, hypothyroidism, GERD, essential hypertension, COPD and complex surgical history with necrotic bowel, bowel resection with open abdomen with delayed closure with ileostomy placement and subsequent necrotic abdominal wound hospitalized March 09, 2023 through 04/04/2023 who presented back to the ER from [facility] with abdominal pain.?The patient initially reported that she had been having about 1 week of abdominal pain and decreased oral intake.? But after further questioning she reports that she has been having escalating abdominal pain for about a month but she did want to bother any body.? She was also having accompanying nausea.? But over the last week she has developed decreased ostomy output and only had about 10 mL of output all day prior to coming to the ER.? She had [facility] today.? She received Zofran in route to the hospital.? About 2 hours after arrival hospital she had another large amount of emesis.? She denied any fevers or chills.? She she has had decreased oral intake will last couple of weeks and feels as if she has lost weight.? CT scan with contrast performed in the ER demonstrated small-bowel obstruction with transition point in the right lower abdominal quadrant adjacent to an intra-abdominal abscess that measured 6.5 x 4.8 x 10.5 with associated fistulous connection to the adjacent dilated small bowel with abscess extending through the lateral abdominal herniation and involving the right ilial psoas muscle and right abdominal sidewall.? She reported to the ER staff that she was having some burning with urination for about a week but is associated with decreased urine output not increased frequency or urgency.? UA in the ER was unremarkable.? However intra-abdominal abscess is causing moderate obstructive uropathy on the right.? BMP in the ER did demonstrate acute kidney injury and hyperkalemia.? The patient had been evaluated for hyperkalemia in the ER in May and was [facility] on .? She is not on any potassium supplements.? History present illness comes from review of prior medical records, ER report and nursing report.?The patient provide some history but has significant psychiatric disorder which makes history process
[2023-08-21] MEDS: SODIUM CHLORIDE 0.9% IV 1,000 ML 70 ML IV CONT (18:38)
[2023-08-21] MEDS: GABAPENTIN 300 MG CAPSULE PO (21:37)
[2023-08-21] MEDS: MELATONIN 3 MG TABLET PO (21:37)
[2023-08-21] MEDS: HYDROcodone/acetaminophen (*CRX) 5-325 MG TABLET 1 TAB PO (23:51)
[2023-08-22] VITALS (7 sets, daily range): BP systolic 90–116; BP diastolic 46–79; PULSE 92–111; RESP 16–20; TEMP 34–37.2; O2SAT 98–100
[2023-08-22 06:12] LABS: Basophils Percent Auto 0.2 % (0.2-1.2); Eosinophils Absolute Auto 0.1 K/mm3 (0-0.3); Eosinophils Percent Auto 0.7 % (0-4.4); Hematocrit 24.1 % (37.0-47.0); Hemoglobin 7.1 g/dL (12.0-15.0); Immature Granulocyte Absolute 0.13 K/mm3 (0.00-0.031); Immature Granulocyte Percent A 1.4 % (0-0.5); Lymphocytes Percent Auto 13.7 % (18.3-44.2); Mean Corpuscular HGB Conc 29.5 g/dl (32-36); Mean Corpuscular Hemoglobin 26.5 pg (26-34); Mean Corpuscular Volume 89.9 fl (80-100); Monocytes Absolute Auto 0.9 K/mm3 (0.1-0.6); Neutrophils Absolute Auto 7.1 K/mm3 (1.3-6.7); Platelet Count Result 310 k/mm3 (150-375); Red Blood Count 2.68 M/mm3 (4.2-5.4); Red Cell Distribution Width 17.3 % (11.5-14.5); White Blood Count 9.5 K/mm3 (4.5-10.0)
[2023-08-22 06:39] LABS: Albumin Level 2.5 g/dL (3.5-5.1); Anion Gap 2 mmol/L (4-12); Blood Urea Nitrogen 6 mg/dL (7-17); Carbon Dioxide 20 mmol/L (22-30); Chloride 114 mmol/L (98-107); Estimated CRCL calculation 30 ml/min; Estimated Glomerular Filt Rate 41; Glucose 80 mg/dL (65-110); Magnesium 1.7 mg/dL (1.6-2.3); Phosphorus 2.2 mg/dL (2.5-4.5); Potassium 4.9 mmol/L (3.4-5.0); Sodium 136 mmol/L (137-145)
[2023-08-22 07:11] LABS: Anisocytosis 1+; Crenated RBC 1+; Platelet Estimate Adequate (Adequate); Schistocytes None Seen
[2023-08-22] MEDS: FLUTICASONE/SALMETEROL 45-21 MCG INHALER 1 PUFF 2 PUFF INHALATION ×2 (08:03→21:13)
--- NOTE | 2023-08-22 10:24 | WPDUROPN2 ---
Progress Note: A&P Assessment and Plan (1) Hydronephrosis: Code(s): N13.30 - Unspecified hydronephrosis Status: Acute Assessment and Plan: CT abdomen/pelvis on 08/16 showed severe right hydronephrosis. This is likely related to retroperitoneal inflammation due to her large right upper abdominal wall abscess. She has minimally delayed nephrogram. She has no flank pain or other bothersome symptoms. Will continue to monitor her renal function closely. Creatinine with slight improvement to 1.3 today, down from 1.4 yesterday therefore will defer stent placement at this time. Will again make NPO at midnight for possible right ureteral stent placement if worsening renal function. Subjective Subjective Date/Time Seen: 08/22/23 10:24 Interval history: Jeanne is feeling well today. She offers no concerns. Denies flank pain or back pain. She is eating well. She wants to go back to [place]. Review of Systems Review of Systems: All systems reviewed & are unremarkable except as noted in HPI and below Exam Narrative: General: Thin, frail, alert, comfortable, no acute distress HEENT: Normocephalic, atraumatic, sclerae anicteric Respiratory: Normal respiratory effort, no accessory muscle use Abdomen: Nondistended, soft Skin: Normal coloration, warm and dry Neurologic: No focal neuro deficits noted Psychiatric: Appropriate mood and affect, judgment and insight intact Objective Data Vital Signs Vital Signs: Vital Signs - 24 hr 08/21/23 12:00 08/21/23 12:04 08/21/23 14:00 Temperature 97.1 F L 97.1 F L 98.6 F Pulse Rate 99 99 101 H Respiratory Rate 20 20 18 Blood Pressure 80/50 L 93/39 L 107/51 L Pulse Oximetry 99 99 100 Oxygen Delivery Fraction of Inspired Oxygen 08/21/23 21:24 08/21/23 19:00 08/21/23 20:00 Temperature 98.4 F Pulse Rate 105 H 105 H Respiratory Rate 18 Blood Pressure 87/50 L Pulse Oximetry 98 99 98 Oxygen Delivery Room Air Room Air Fraction of Inspired Oxygen 21 08/22/23 06:00 08/22/23 08:10 08/22/23 08:10 Temperature 99.0 F Pulse Rate 108 H 100 Respiratory Rate 20 16 Blood Pressure 90/54 L Pulse Oximetry 99 98 Oxygen Delivery Room Air Fraction of Inspired Oxygen Intake/Output Intake/Output: Intake & Output 08/19/23 08/20/23 08/21/23 08/22/23 23:59 23:59 23:59 23:59 Intake Total 2636 2500 3000 240 Output Total 1585 3185 2345 200 Balance 1051 -662 655 40 Meds/Results Medications: Active Medications Generic Name Dose Route Start Last Admin Trade Name Freq PRN Reason Stop Dose Admin Acetaminophen 650 mg 08/18/23 08:53 Acetaminophen 325 Mg Tablet PO Q4-6H PRN Pain Hydrocodone Bitart/Acetaminophen 1 tab 08/20/23 11:29 08/21/23 16:29 Hydrocodone/Acetaminophen (*Crx) 10-325 Mg Tablet PO 1 tab Q6H PRN Administration Pain Rated 7-10 Hydrocodone Bitart/Acetaminophen 1 tab 08/20/23 11:29 08/21/23 23:51 Hydrocodone/Acetaminophen (*Crx) 5-325 Mg Tablet PO 1 tab Q6H PRN Administration Pain Rated 4-6 Albuterol 2 puff 08/17/23 19:39 08/20/23 19:39 Albuterol Sulfate (*Sp) Aerosol 1 Puff INHALATION 2 puff Q4-6H PRN Administration Shortness Of Breath Or Wheezing Ascorbic Acid 500 mg 08/18/23 09:00 08/21/23 08:48 Ascorbic Acid 500 Mg Tablet PO 500 mg DAILY PARAS Administration Aspirin 81 mg 08/19/23 08:00 08/21/23 08:48 Aspirin 81 Mg Chewable Tablet PO 81 mg DAILY@0800 PARAS Administration Atorvastatin Calcium 40 mg 08/18/23 09:00 08/21/23 08:47 Atorvastatin 40 Mg Tablet PO 40 mg DAILY PARAS Administration Duloxetine HCl 40 mg 08/18/23 09:00 08/21/23 08:47 Duloxetine Hcl 20 Mg Capsule.Dr PO 40 mg DAILY PARAS Administration Enoxaparin Sodium 40 mg 08/19/23 09:00 08/22/23 10:22 Enoxaparin 40 Mg/0.4 Ml Syringe SUB-Q Not Given DAILY [facility] Folic Acid 1 mg 08/18/23 09:00 08/21/23 08:48 Folic Acid 1 Mg Tablet PO 1
[2023-08-22] MEDS: DULoxetine HCL 20 MG CAPSULE.DR 40 MG PO (11:01)
[2023-08-22] MEDS: ATORVASTATIN 40 MG TABLET PO (11:01)
[2023-08-22] MEDS: MULTIVITAMINS THERAPEUTIC TAB (*BKC) 1 TABLET PO (11:01)
[2023-08-22] MEDS: PANTOPRAZOLE 40 MG TABLET PO (11:01)
[2023-08-22] MEDS: risperiDONE 0.5 MG TABLET PO (11:01)
[2023-08-22] MEDS: lamoTRIgine 100 MG TABLET PO ×2 (11:01→21:36)
[2023-08-22] MEDS: ASCORBIC ACID 500 MG TABLET PO (11:01)
[2023-08-22] MEDS: hydrOXYzine HCL 25 MG TABLET PO ×3 (11:01→21:37)
[2023-08-22] MEDS: THIAMINE HCL 100 MG TABLET PO (11:01)
[2023-08-22] MEDS: FOLIC ACID 1 MG TABLET PO (11:01)
[2023-08-22] MEDS: ASPIRIN 81 MG CHEWABLE TABLET PO (11:02)
[2023-08-22] MEDS: HYDROcodone/acetaminophen (*CRX) 5-325 MG TABLET 1 TAB PO (11:06)
[2023-08-22] MEDS: ONDANSETRON HCL ODT 4 MG TABLET PO (11:06)
[2023-08-22] MEDS: MEROPENEM 1 GM/NS 100 ML 1 GM/100 ML BAG IVPB ×2 (11:07→21:37)
--- NOTE | 2023-08-22 11:17 | PC.NURSE ---
RN gave update to Zeeshan via telephone
--- NOTE | 2023-08-22 13:49 | PM.PNGS ---
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 Drain output still appears to have enteric contents, but the output over the past 2 days has been decreasing. Will continue to allow her to have a diet and monitor the drain as this appears to be a low output fistula. If this does not improve, then she may eventually require an exploratory laparotomy with takedown of the fistula. (2) Intra-abdominal abscess: Code(s): K65.1 - Peritoneal abscess Status: Acute Assessment and Plan: Abscess percutaneously drained in Radiology with most recent repeat CT scan showing only minimal fluid left in the abscess cavity. Output from the drain now appears consistent with enteric contents which confirms a fistulous connection. Continue to monitor perc drain for now. Continue IV antibiotics. See plan above for fistula. (3) Hypoalbuminemia: Code(s): E88.09 - Other disorders of plasma-protein metabolism, not elsewhere classified Status: Acute Assessment and Plan: Albumin only 2.5. Patient is finally eating better. Dietitian recommended monitoring and felt she did not require a calorie count as she has eaten 100% of all meals the last 2 days. They added nutritional supplements to her diet. Plan I have discussed the patient's case and plan of care with Dr. Kim. Subjective Subjective Date/Time Seen: 08/22/23 13:49 Patient reports: no new complaints and tolerating a regular diet Interval history: No new complaints overnight. Denies any abdominal pain today. She is eating well and reports eating 100% of her trays. She is hungry during my exam and asking for more food. She reports feeling depressed. She is tearful and discouraged with being in the Hospital. Exam Const: General: comfortable and no acute distress GI: Inspection: non-distended GI Palp: Yes Tenderness to palpation present (GI) (mild tenderness in the RLQ near her perc drain and ileostomy), No Guarding due to palpation present (GI) and No Rebound tenderness present Auscultation: normal bowel sounds Other: Ileostomy functioning well with moderate brown output in bag. RLQ pigtail drain with flaky brown output in bag that appears the consistent with enteric contents coming from the ostomy. Objective Data Vital Signs Vital Signs: Vital Signs - 24 hr 08/21/23 14:00 08/21/23 21:24 08/21/23 19:00 Temperature 98.6 F 98.4 F Pulse Rate 101 H 105 H Respiratory Rate 18 Blood Pressure 107/51 L 87/50 L Pulse Oximetry 100 98 99 Oxygen Delivery Room Air Fraction of Inspired Oxygen 08/21/23 20:00 08/22/23 06:00 08/22/23 08:10 Temperature 99.0 F Pulse Rate 105 H 108 H Respiratory Rate 18 20 Blood Pressure 90/54 L Pulse Oximetry 98 99 98 Oxygen Delivery Room Air Room Air Fraction of Inspired Oxygen 21 08/22/23 08:10 08/22/23 11:01 Temperature Pulse Rate 100 Respiratory Rate 16 Blood Pressure Pulse Oximetry Oxygen Delivery Room Air Fraction of Inspired Oxygen Intake/Output Intake/Output: Intake & Output 08/19/23 08/20/23 08/21/23 08/22/23 23:59 23:59 23:59 23:59 Intake Total 2636 2500 3000 460 Output Total 1585 3185 2345 200 Balance 1051 -685 655 260 Meds/Results Medications: Active Medications Generic Name Dose Route Start Last Admin Trade Name Freq PRN Reason Stop Dose Admin Acetaminophen 650 mg 08/18/23 08:53 Acetaminophen 325 Mg Tablet PO Q4-6H PRN Pain Hydrocodone Bitart/Acetaminophen 1 tab 08/20/23 11:29 08/21/23 16:29 Hydrocodone/Acetaminophen (*Crx) 10-325 Mg Tablet PO 1 tab Q6H PRN Administration Pain Rated 7-10 Hydrocodone Bitart/Acetaminophen 1 tab 08/20/23 11:29 08/22/23 11:06 Hydrocodone/Acetaminophen (*Crx) 5
--- NOTE | 2023-08-22 15:12 | PM.IMPN ---
Progress Note: A&P Assessment and Plan (1) Sepsis: Qualifiers: Sepsis type: sepsis due to unspecified organism Sepsis acute organ dysfunction status: with acute organ dysfunction Severe sepsis acute organ dysfunction type: acute renal failure Acute renal failure type: unspecified Severe sepsis shock status: without septic shock Qualified Code(s): A41.9 - Sepsis, unspecified organism; R65.20 - Severe sepsis without septic shock; N17.9 - Acute kidney failure, unspecified Code(s): A41.9 - Sepsis, unspecified organism Status: Acute (2) Intra-abdominal abscess: Code(s): K65.1 - Peritoneal abscess Status: Acute (3) 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 - Fistula of intestine Status: Acute (4) Small bowel obstruction: Code(s): K56.609 - Unspecified intestinal obstruction, unspecified as to partial versus complete obstruction Status: Acute (5) Hydronephrosis: Code(s): N13.30 - Unspecified hydronephrosis Status: Acute (6) ITALO (acute kidney injury): Code(s): N17.9 - Acute kidney failure, unspecified Status: Acute (7) Anemia: Code(s): D64.9 - Anemia, unspecified Status: Acute (8) Acute hyperkalemia: Code(s): E87.5 - Hyperkalemia Status: Acute (9) Paranoid schizophrenia: Code(s): F20.0 - Paranoid schizophrenia Status: Acute (10) COPD (chronic obstructive pulmonary disease): Code(s): J44.9 - Chronic obstructive pulmonary disease, unspecified Status: Acute (11) Ileostomy status: Code(s): Z93.2 - Ileostomy status Status: Acute (12) Urinary retention: Code(s): R33.9 - Retention of urine, unspecified Status: Acute (13) Anxiety and depression: Code(s): F41.9 - Anxiety disorder, unspecified; F32.A - Depression, unspecified Status: Acute Plan A pleasant 62-year-old female with a past medical history of paranoid schizophrenia, anxiety, hypothyroidism, GERD, essential hypertension, COPD and complex surgical history with necrotic bowel, bowel resection with open abdomen with delayed closure with ileostomy placement and subsequent necrotic abdominal wound hospitalized March 09, 2023 through 04/04/2023 who presented back to the ER from [facility] with abdominal pain.?The patient initially reported that she had been having about 1 week of abdominal pain and decreased oral intake.? But after further questioning she reports that she has been having escalating abdominal pain for about a month but she did want to bother any body.? She was also having accompanying nausea.? But over the last week she has developed decreased ostomy output and only had about 10 mL of output all day prior to coming to the ER.? She had had several large emesis at the [facility] today.? She received Zofran in route to the hospital.? About 2 hours after arrival hospital she had another large amount of emesis.? She denied any fevers or chills.? She she has had decreased oral intake will last couple of weeks and feels as if she has lost weight.? CT scan with contrast performed in the ER demonstrated small-bowel obstruction with transition point in the right lower abdominal quadrant adjacent to an intra-abdominal abscess that measured 6.5 x 4.8 x 10.5 with associated fistulous connection to the adjacent dilated small bowel with abscess extending through the lateral abdominal herniation and involving the right ilial psoas muscle and right abdominal sidewall.? She reported to the ER staff that she was having some burning with urination for about a week but is associated with decreased urine output not increased frequency or urgency.? UA in the ER was unremarkable.? However intra-abdominal abscess is causing moderate obstructive uropathy on the right.? BMP in the ER did demonstrate acute kidney injury and hyperkalemia.? The patient had been evaluated for hyperkalemia in the ER in May and was discharged back
[2023-08-22] MEDS: SODIUM CHLORIDE 0.9% IV 250 ML 30 ML IV CONT (17:25)
[2023-08-22] MEDS: MELATONIN 3 MG TABLET PO (21:36)
[2023-08-22] MEDS: GABAPENTIN 300 MG CAPSULE PO (21:37)
[2023-08-23] MEDS: HYDROcodone/acetaminophen (*CRX) 5-325 MG TABLET 1 TAB PO (00:37)
[2023-08-23] MEDS: LEVOTHYROXINE SODIUM 50 MCG TABLET PO (05:41)
[2023-08-23 06:00] VITALS: BP 114/62; PULSE 95; RESP 16; TEMP 36.6; O2SAT 100
[2023-08-23 06:13] LABS: Basophils Percent Auto 0.3 % (0.2-1.2); Eosinophils Percent Auto 0.4 % (0-4.4); Hematocrit 29.7 % (37.0-47.0); Hemoglobin 9.1 g/dL (12.0-15.0); Immature Granulocyte Absolute 0.12 K/mm3 (0.00-0.031); Immature Granulocyte Percent A 1.3 % (0-0.5); Lymphocytes Absolute Auto 1.43 K/mm3 (0.9-3.2); Lymphocytes Percent Auto 15.8 % (18.3-44.2); Mean Corpuscular HGB Conc 30.6 g/dl (32-36); Mean Corpuscular Hemoglobin 27.1 pg (26-34); Mean Corpuscular Volume 88.4 fl (80-100); Mean Platelet Volume 9.7 fl (7.4-10.4); Monocytes Absolute Auto 0.7 K/mm3 (0.1-0.6); Monocytes Percent Auto 8.2 % (2.6-8.5); Neutrophils Absolute Auto 6.7 K/mm3 (1.3-6.7); Platelet Count Result 333 k/mm3 (150-375); Red Blood Count 3.36 M/mm3 (4.2-5.4); Red Cell Distribution Width 16.6 % (11.5-14.5); White Blood Count 9.1 K/mm3 (4.5-10.0)
[2023-08-23 06:23] LABS: Alanine Aminotransferase 14 U/L (6-35); Albumin Level 2.7 g/dL (3.5-5.1); Alkaline Phosphatase 77 U/L (38-126); Anion Gap -1 mmol/L (4-12); Aspartate Amino Transferase 22 U/L (14-36); Bilirubin,Total 0.2 mg/dL (0.2-1.3); Blood Urea Nitrogen 19 mg/dL (7-17); Calcium 8.6 mg/dL (8.4-10.2); Carbon Dioxide 27 mmol/L (22-30); Chloride 110 mmol/L (98-107); Estimated CRCL calculation 30 ml/min; Estimated Glomerular Filt Rate 41; Glucose 89 mg/dL (65-110); Magnesium 1.8 mg/dL (1.6-2.3); Phosphorus 2.5 mg/dL (2.5-4.5); Potassium 4.8 mmol/L (3.4-5.0); Sodium 136 mmol/L (137-145)
--- NOTE | 2023-08-23 07:18 | WPDUROPN2 ---
Progress Note: A&P Assessment and Plan (1) Hydronephrosis: Code(s): N13.30 - Unspecified hydronephrosis Status: Acute Assessment and Plan: Feeling well, serum WBC again improved and serum creat. stable. Will, again, defer ureteral stent placement. Discharge anytime, from our standpoint, is OK. Will plan to re-image kidney and check labs 2-3 weeks after discharge. Subjective Subjective Date/Time Seen: 08/23/23 07:18 Interval history: Jeanne is feeling well today. She offers no concerns. Denies flank pain or back pain. She is eating well. She wants to go back to [place]. Review of Systems Review of Systems: All systems reviewed & are unremarkable except as noted in HPI and below Exam Const: General: no acute distress Resp: Effort & Inspection: normal respiratory effort GI: Inspection: non-distended GI Palp: No abdominal tenderness and No Guarding due to palpation present (GI) Auscultation: normal bowel sounds Objective Data Vital Signs Vital Signs: Vital Signs - 24 hr 08/22/23 08:10 08/22/23 08:10 08/22/23 11:01 Temperature Pulse Rate 100 Respiratory Rate 16 Blood Pressure Pulse Oximetry 98 Oxygen Delivery Room Air Room Air 08/22/23 14:00 08/22/23 17:32 08/22/23 17:46 Temperature 97.8 F 97.3 F L 97.5 F L Pulse Rate 110 H 111 H 109 H Respiratory Rate 17 18 16 Blood Pressure 103/46 L 97/59 L 96/51 L Pulse Oximetry 98 100 100 Oxygen Delivery 08/22/23 21:00 08/22/23 21:23 08/23/23 06:00 Temperature 98.7 F 93.2 F L 97.8 F Pulse Rate 92 107 H 95 Respiratory Rate 16 20 16 Blood Pressure 101/79 116/56 L 114/62 Pulse Oximetry 98 100 100 Oxygen Delivery Intake/Output Intake/Output: Intake & Output 08/20/23 08/21/23 08/22/23 08/23/23 23:59 23:59 23:59 23:59 Intake Total 2500 3000 1532 Output Total 4545 9625 690 Balance -685 655 842 Meds/Results Medications: Active Medications Generic Name Dose Route Start Last Admin Trade Name Freq PRN Reason Stop Dose Admin Acetaminophen 650 mg 08/18/23 08:53 Acetaminophen 325 Mg Tablet PO Q4-6H PRN Pain Hydrocodone Bitart/Acetaminophen 1 tab 08/20/23 11:29 08/21/23 16:29 Hydrocodone/Acetaminophen (*Crx) 10-325 Mg Tablet PO 1 tab Q6H PRN Administration Pain Rated 7-10 Hydrocodone Bitart/Acetaminophen 1 tab 08/20/23 11:29 08/23/23 00:37 Hydrocodone/Acetaminophen (*Crx) 5-325 Mg Tablet PO 1 tab Q6H PRN Administration Pain Rated 4-6 Albuterol 2 puff 08/17/23 19:39 08/20/23 19:39 Albuterol Sulfate (*Sp) Aerosol 1 Puff INHALATION 2 puff Q4-6H PRN Administration Shortness Of Breath Or Wheezing Ascorbic Acid 500 mg 08/18/23 09:00 08/22/23 11:01 Ascorbic Acid 500 Mg Tablet PO 500 mg DAILY PARAS Administration Aspirin 81 mg 08/19/23 08:00 08/22/23 11:02 Aspirin 81 Mg Chewable Tablet PO 81 mg DAILY@0800 PARAS Administration Atorvastatin Calcium 40 mg 08/18/23 09:00 08/22/23 11:01 Atorvastatin 40 Mg Tablet PO 40 mg DAILY PARAS Administration Duloxetine HCl 40 mg 08/18/23 09:00 08/22/23 11:01 Duloxetine Hcl 20 Mg Capsule.Dr PO 40 mg DAILY PARAS Administration Enoxaparin Sodium 40 mg 08/19/23 09:00 08/22/23 10:22 Enoxaparin 40 Mg/0.4 Ml Syringe SUB-Q Not Given DAILY PARAS Folic Acid 1 mg 08/18/23 09:00 08/22/23 11:01 Folic Acid 1 Mg Tablet PO 1 mg DAILY PARAS Administration Gabapentin 300 mg 08/18/23 21:00 08/22/23 21:37 Gabapentin 300 Mg Capsule PO 300 mg HS PARAS Administration Hydroxyzine HCl 25 mg 08/18/23 09:00 08/22/23 21:37 Hydroxyzine Hcl 25 Mg Tablet PO 25 mg QID PARAS Administration Meropenem 1 gm in 100 mls @ 200 mls/hr 08/19/23 08:30 08/22/23 22:07 IVPB 08/23/23 21:29 Infused Q12HR PARAS Infusion Lamotrigine 100 mg 08/17/23 21:00 08/22/23 21:36 Lamotrigine 100 Mg Tablet PO 100 mg Q12HR PARAS Administration Levalbuterol HCl 0
[2023-08-23] MEDS: MEROPENEM 1 GM/NS 100 ML 1 GM/100 ML BAG IVPB ×2 (08:32→20:05)
[2023-08-23] MEDS: risperiDONE 0.5 MG TABLET PO (08:33)
[2023-08-23] MEDS: THIAMINE HCL 100 MG TABLET PO (08:33)
[2023-08-23] MEDS: ASPIRIN 81 MG CHEWABLE TABLET PO (08:33)
[2023-08-23] MEDS: PANTOPRAZOLE 40 MG TABLET PO (08:33)
[2023-08-23] MEDS: hydrOXYzine HCL 25 MG TABLET PO ×2 (08:33→19:59)
[2023-08-23] MEDS: FOLIC ACID 1 MG TABLET PO (08:33)
[2023-08-23] MEDS: lamoTRIgine 100 MG TABLET PO ×2 (08:33→19:59)
[2023-08-23] MEDS: ASCORBIC ACID 500 MG TABLET PO (08:33)
[2023-08-23] MEDS: ATORVASTATIN 40 MG TABLET PO (08:33)
[2023-08-23] MEDS: DULoxetine HCL 20 MG CAPSULE.DR 40 MG PO (08:33)
[2023-08-23] MEDS: MULTIVITAMINS THERAPEUTIC TAB (*BKC) 1 TABLET PO (08:33)
[2023-08-23] MEDS: FLUTICASONE/SALMETEROL 45-21 MCG INHALER 1 PUFF 2 PUFF INHALATION ×2 (08:38→19:32)
[2023-08-23] MEDS: ALBUTEROL SULFATE (*SP) AEROSOL 1 PUFF 2 PUFF INHALATION (08:40)
[2023-08-23 08:41] VITALS: O2SAT 97
[2023-08-23] MEDS: ENOXAPARIN 30 MG/0.3 ML SYRINGE SUB-Q (08:44)
[2023-08-23] MEDS: HYDROcodone/acetaminophen (*CRX) 10-325 MG TABLET 1 TAB PO ×2 (08:44→19:59)
[2023-08-23] MEDS: LORazepam (*CRX) 0.5 MG TABLET PO ×2 (08:44→19:59)
--- NOTE | 2023-08-23 11:04 | PCNFU ---
Nutrition Follow-Up Complete: Inadequate oral intake related to NPO/CL diet as evidenced by patient not having met estimated nutrition needs x 3 days. Goal: 1. Diet to be advanced by f/u. 2. Weight to remain at or above current weight of 48.1 kg. Pt meeting goals. New goal of 75% intake of meals Pt current nutrition is Regular. Nutrition recommendation: resume supplements of Ensure Enlive, nutrition ice cream cups BID Last recorded weight is 46 kg. Bowel Motility: +BM 08/21 Labs Reviewed: Hgb:9.1, HCT:29.7, Alb:2.7, NA:136, GFR:41, BUN:19, Cr:1.3 Meds Noted:folic acid, thiamine, zofran, protonix Skin: No skin issues noted Additional Notes: Pt continues on a regular diet, was on Ensure Enlive and nutrition ice cream cups but went NPO and orders were not resumed, Will re order for pt. Agree with diet orders, encourage good po intake, intake averages 25-50% at this time. Monitor diet advancement, weight, labs, appetite. Follow up in 5 days
--- NOTE | 2023-08-23 11:39 | P.PNIM_ITS ---
Progress Note: A&P Assessment and Plan (1) Sepsis: Qualifiers: Sepsis type: sepsis due to unspecified organism Sepsis acute organ dysfunction status: with acute organ dysfunction Severe sepsis acute organ dysfunction type: acute renal failure Acute renal failure type: unspecified Severe sepsis shock status: without septic shock Qualified Code(s): A41.9 - Sepsis, unspecified organism; R65.20 - Severe sepsis without septic shock; N17.9 - Acute kidney failure, unspecified Code(s): A41.9 - Sepsis, unspecified organism Status: Acute (2) Intra-abdominal abscess: Code(s): K65.1 - Peritoneal abscess Status: Acute (3) 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 - Fistula of intestine Status: Acute (4) Small bowel obstruction: Code(s): K56.609 - Unspecified intestinal obstruction, unspecified as to partial versus complete obstruction Status: Acute (5) Hydronephrosis: Code(s): N13.30 - Unspecified hydronephrosis Status: Acute (6) ITALO (acute kidney injury): Code(s): N17.9 - Acute kidney failure, unspecified Status: Acute (7) Anemia: Code(s): D64.9 - Anemia, unspecified Status: Acute (8) Acute hyperkalemia: Code(s): E87.5 - Hyperkalemia Status: Acute (9) Paranoid schizophrenia: Code(s): F20.0 - Paranoid schizophrenia Status: Acute (10) COPD (chronic obstructive pulmonary disease): Code(s): J44.9 - Chronic obstructive pulmonary disease, unspecified Status: Acute (11) Ileostomy status: Code(s): Z93.2 - Ileostomy status Status: Acute (12) Urinary retention: Code(s): R33.9 - Retention of urine, unspecified Status: Acute (13) Anxiety and depression: Code(s): F41.9 - Anxiety disorder, unspecified; F32.A - Depression, unspecified Status: Acute Plan A pleasant 62-year-old female with a past medical history of paranoid schizophrenia, anxiety, hypothyroidism, GERD, essential hypertension, COPD and complex surgical history with necrotic bowel, bowel resection with open abdomen with delayed closure with ileostomy placement and subsequent necrotic abdominal wound hospitalized March 09, 2023 through 04/04/2023 who presented back to the ER from [facility] with abdominal pain.?The patient initially reported that she had been having about 1 week of abdominal pain and decreased oral intake.? But after further questioning she reports that she has been having escalating abdominal pain for about a month but she did want to bother any body.? She was also having accompanying nausea.? But over the last week she has developed decreased ostomy output and only had about 10 mL of output all day prior to coming to the ER.? She had had several large emesis at the [facility] today.? She received Zofran in route to the hospital.? About 2 hours after arrival hospital she had another large amount of emesis.? She denied any fevers or chills.? She she has had decreased oral intake will last couple of weeks and feels as if she has lost weight.? CT scan with contrast performed in the ER demonstrated small-bowel obstruction with transition point in the right lower abdominal quadrant adjacent to an intra-abdominal abscess that measured 6.5 x 4.8 x 10.5 with associated fistulous connection to the adjacent dilated small bowel with abscess extending through the lateral abdominal herniation and involving the right ilial psoas muscle and right abdominal sidewall.? She reported to the ER staff that she was having some burning with urination for about a week but is associated with decreased urine
[2023-08-23 14:00] VITALS: BP 98/56; PULSE 100; RESP 18; TEMP 36.7; O2SAT 100
[2023-08-23] MEDS: ONDANSETRON HCL ODT 4 MG TABLET PO (18:50)
[2023-08-23 19:32] VITALS: O2SAT 100
[2023-08-23] MEDS: GABAPENTIN 300 MG CAPSULE PO (19:59)
[2023-08-23] MEDS: MELATONIN 3 MG TABLET PO (19:59)
[2023-08-23] MEDS: SIMETHICONE 80 MG TAB.CHEW PO (19:59)
[2023-08-23 20:15] VITALS: BP 107/59; PULSE 111; RESP 16; TEMP 36.6; O2SAT 100
[2023-08-24] MEDS: SODIUM CHLORIDE 0.9% IV 250 ML 20 ML (02:09)
[2023-08-24] MEDS: LORazepam (*CRX) 0.5 MG TABLET PO ×2 (03:37→20:50)
[2023-08-24] MEDS: HYDROcodone/acetaminophen (*CRX) 10-325 MG TABLET 1 TAB PO ×3 (03:37→20:50)
[2023-08-24] MEDS: ONDANSETRON HCL ODT 4 MG TABLET PO ×3 (03:38→20:50)
[2023-08-24 05:09] VITALS: BP 106/51; PULSE 113; RESP 16; TEMP 36.6; O2SAT 100
[2023-08-24 06:05] LABS: Basophils Percent Auto 0.1 % (0.2-1.2); Eosinophils Percent Auto 0.4 % (0-4.4); Hematocrit 28.9 % (37.0-47.0); Hemoglobin 8.6 g/dL (12.0-15.0); Immature Granulocyte Absolute 0.08 K/mm3 (0.00-0.031); Immature Granulocyte Percent A 0.9 % (0-0.5); Lymphocytes Absolute Auto 1.39 K/mm3 (0.9-3.2); Lymphocytes Percent Auto 16.4 % (18.3-44.2); Mean Corpuscular HGB Conc 29.8 g/dl (32-36); Mean Corpuscular Volume 90.9 fl (80-100); Mean Platelet Volume 9.9 fl (7.4-10.4); Monocytes Absolute Auto 0.8 K/mm3 (0.1-0.6); Monocytes Percent Auto 9.4 % (2.6-8.5); Neutrophils Absolute Auto 6.2 K/mm3 (1.3-6.7); Neutrophils Percent Auto 72.8 % (45.5-73.1); Platelet Count Result 353 k/mm3 (150-375); Red Blood Count 3.18 M/mm3 (4.2-5.4); Red Cell Distribution Width 17.1 % (11.5-14.5); White Blood Count 8.5 K/mm3 (4.5-10.0)
[2023-08-24] MEDS: LEVOTHYROXINE SODIUM 50 MCG TABLET PO (06:30)
[2023-08-24 06:33] LABS: Albumin Level 2.9 g/dL (3.5-5.1); Anion Gap 2 mmol/L (4-12); Blood Urea Nitrogen 20 mg/dL (7-17); CRP 0.7 mg/dL (<1.0); Calcium 8.3 mg/dL (8.4-10.2); Carbon Dioxide 24 mmol/L (22-30); Chloride 109 mmol/L (98-107); Estimated CRCL calculation 35 ml/min; Estimated Glomerular Filt Rate 50; Glucose 109 mg/dL (65-110); Magnesium 1.8 mg/dL (1.6-2.3); Phosphorus 2.3 mg/dL (2.5-4.5); Potassium 4.7 mmol/L (3.4-5.0); Sodium 135 mmol/L (137-145)
[2023-08-24 07:15] LABS: Anisocytosis 1+; Hypochromasia 1+; Platelet Estimate Adequate (Adequate)
[2023-08-24 07:16] LABS: Crenated RBC 1+; Schistocytes Rare
[2023-08-24 08:33] VITALS: O2SAT 98
[2023-08-24] MEDS: FLUTICASONE/SALMETEROL 45-21 MCG INHALER 1 PUFF 2 PUFF INHALATION ×2 (08:33→20:45)
[2023-08-24] MEDS: ALBUTEROL SULFATE (*SP) AEROSOL 1 PUFF 2 PUFF INHALATION (08:33)
[2023-08-24] MEDS: ATORVASTATIN 40 MG TABLET PO (09:57)
[2023-08-24] MEDS: MULTIVITAMINS THERAPEUTIC TAB (*BKC) 1 TABLET PO (09:57)
[2023-08-24] MEDS: DULoxetine HCL 20 MG CAPSULE.DR 40 MG PO (09:57)
[2023-08-24] MEDS: ASPIRIN 81 MG CHEWABLE TABLET PO (09:57)
[2023-08-24] MEDS: FOLIC ACID 1 MG TABLET PO (09:57)
[2023-08-24] MEDS: ASCORBIC ACID 500 MG TABLET PO (09:57)
[2023-08-24] MEDS: THIAMINE HCL 100 MG TABLET PO (09:57)
[2023-08-24] MEDS: PANTOPRAZOLE 40 MG TABLET PO (09:57)
[2023-08-24] MEDS: lamoTRIgine 100 MG TABLET PO ×2 (09:57→20:50)
[2023-08-24] MEDS: hydrOXYzine HCL 25 MG TABLET PO ×4 (09:57→20:50)
[2023-08-24] MEDS: risperiDONE 0.5 MG TABLET PO (09:57)
[2023-08-24] MEDS: ENOXAPARIN 30 MG/0.3 ML SYRINGE SUB-Q (09:58)
--- NOTE | 2023-08-24 10:02 | PM.PNGS ---
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 - Fistula of intestine Status: Acute Assessment and Plan: seems to be slowing down, cont drain and abx, cont diet, exam benign Subjective Subjective Date/Time Seen: 08/24/23 10:02 Interval history: feels better, no pain, wants to go home Review of Systems Review of Systems: All systems reviewed & are unremarkable except as noted in HPI and below Exam Const: General: cooperative, comfortable, no acute distress, ill appearing and cachectic Resp: Auscultation: clear to auscultation bilaterally Cardio: Rate: regular rate Rhythm: regular rhythm GI: Inspection: normal to inspection and non-distended GI Palp: No abdominal tenderness and Yes Soft to palpation Other: ostomy - +fxn RLQ drain - mod feculent drainage Objective Data Vital Signs Vital Signs: Vital Signs - 24 hr 08/23/23 14:00 08/23/23 19:32 08/23/23 20:15 Temperature 36.7 C 36.6 C Pulse Rate 100 111 H Respiratory Rate 18 16 Blood Pressure 98/56 L 107/59 L Pulse Oximetry 100 100 100 Oxygen Delivery Room Air 08/24/23 05:09 08/24/23 08:33 Temperature 36.6 C Pulse Rate 113 H Respiratory Rate 16 Blood Pressure 106/51 L Pulse Oximetry 100 98 Oxygen Delivery Room Air Intake/Output Intake/Output: Intake & Output 08/21/23 08/22/23 08/23/23 08/24/23 23:59 23:59 23:59 23:59 Intake Total 3000 1532 1420 1087 Output Total 2345 690 1100 750 Balance 655 842 320 337 Meds/Results Medications: Active Medications Generic Name Dose Route Start Last Admin Trade Name Freq PRN Reason Stop Dose Admin Acetaminophen 650 mg 08/18/23 08:53 Acetaminophen 325 Mg Tablet PO Q4-6H PRN Pain Hydrocodone Bitart/Acetaminophen 1 tab 08/20/23 11:29 08/24/23 03:37 Hydrocodone/Acetaminophen (*Crx) 10-325 Mg Tablet PO 1 tab Q6H PRN Administration Pain Rated 7-10 Hydrocodone Bitart/Acetaminophen 1 tab 08/20/23 11:29 08/23/23 00:37 Hydrocodone/Acetaminophen (*Crx) 5-325 Mg Tablet PO 1 tab Q6H PRN Administration Pain Rated 4-6 Albuterol 2 puff 08/17/23 19:39 08/24/23 08:33 Albuterol Sulfate (*Sp) Aerosol 1 Puff INHALATION 2 puff Q4-6H PRN Administration Shortness Of Breath Or Wheezing Ascorbic Acid 500 mg 08/18/23 09:00 08/24/23 09:57 Ascorbic Acid 500 Mg Tablet PO 500 mg DAILY PARAS Administration Aspirin 81 mg 08/19/23 08:00 08/24/23 09:57 Aspirin 81 Mg Chewable Tablet PO 81 mg DAILY@0800 PARAS Administration Atorvastatin Calcium 40 mg 08/18/23 09:00 08/24/23 09:57 Atorvastatin 40 Mg Tablet PO 40 mg DAILY PARAS Administration Duloxetine HCl 40 mg 08/18/23 09:00 08/24/23 09:57 Duloxetine Hcl 20 Mg Capsule.Dr PO 40 mg DAILY PARAS Administration Enoxaparin Sodium 30 mg 08/23/23 09:00 08/24/23 09:58 Enoxaparin 30 Mg/0.3 Ml Syringe SUB-Q 30 mg DAILY PARAS Administration Folic Acid 1 mg 08/18/23 09:00 08/24/23 09:57 Folic Acid 1 Mg Tablet PO 1 mg DAILY PARAS Administration Gabapentin 300 mg 08/18/23 21:00 08/23/23 19:59 Gabapentin 300 Mg Capsule PO 300 mg HS PARAS Administration Hydroxyzine HCl 25 mg 08/18/23 09:00 08/24/23 09:57 Hydroxyzine Hcl 25 Mg Tablet PO 25 mg QID PARAS Administration Lamotrigine 100 mg 08/17/23 21:00 08/24/23 09:57 Lamotrigine 100 Mg Tablet PO 100 mg Q12HR PARAS Administration Levalbuterol HCl 0.63 mg 08/14/23 04:10 08/14/23 20:37 Levalbuterol Neb 1.25 Mg/3 Ml INHALATION 0.63 mg Q6HRT PRN Administration Shortness of breath/wheezing Levothyroxine Sodium 50 mcg 08/19/23 06:30 08/23/23 05:41 Levothyroxine Sodium 50 Mcg Tablet PO 50 mcg DAILY@0630 PARAS Administration Lorazepam 0.5 mg 08/20/23 11:30 08/24/23 03:37 Lorazepam (*Crx) 0.5 Mg Tablet PO 0.5 mg Q6H PRN Administration Anxiety Melatonin 3 mg 08/18/23 21:00 08/23/23 19:
[2023-08-24] MEDS: SIMETHICONE 80 MG TAB.CHEW PO ×2 (10:03→20:51)
--- NOTE | 2023-08-24 12:44 | PM.IMPN ---
Progress Note: A&P Assessment and Plan (1) Sepsis: Qualifiers: Sepsis type: sepsis due to unspecified organism Sepsis acute organ dysfunction status: with acute organ dysfunction Severe sepsis acute organ dysfunction type: acute renal failure Acute renal failure type: unspecified Severe sepsis shock status: without septic shock Qualified Code(s): A41.9 - Sepsis, unspecified organism; R65.20 - Severe sepsis without septic shock; N17.9 - Acute kidney failure, unspecified Code(s): A41.9 - Sepsis, unspecified organism Status: Acute (2) Intra-abdominal abscess: Code(s): K65.1 - Peritoneal abscess Status: Acute (3) 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 - Fistula of intestine Status: Acute (4) Small bowel obstruction: Code(s): K56.609 - Unspecified intestinal obstruction, unspecified as to partial versus complete obstruction Status: Acute (5) Hydronephrosis: Code(s): N13.30 - Unspecified hydronephrosis Status: Acute (6) ITALO (acute kidney injury): Code(s): N17.9 - Acute kidney failure, unspecified Status: Acute (7) Anemia: Code(s): D64.9 - Anemia, unspecified Status: Acute (8) Acute hyperkalemia: Code(s): E87.5 - Hyperkalemia Status: Acute (9) Paranoid schizophrenia: Code(s): F20.0 - Paranoid schizophrenia Status: Acute (10) COPD (chronic obstructive pulmonary disease): Code(s): J44.9 - Chronic obstructive pulmonary disease, unspecified Status: Acute (11) Ileostomy status: Code(s): Z93.2 - Ileostomy status Status: Acute (12) Urinary retention: Code(s): R33.9 - Retention of urine, unspecified Status: Acute (13) Anxiety and depression: Code(s): F41.9 - Anxiety disorder, unspecified; F32.A - Depression, unspecified Status: Acute Plan 62yo female with paranoid schizophrenia, anxiety, hypothyroidism, GERD, essential hypertension, COPD and complex surgical history with necrotic bowel, bowel resection with open abdomen with delayed closure with ileostomy placement and subsequent necrotic abdominal wound hospitalized March 09, 2023 through 04/04/2023 who presented back to the ER from [facility] with abdominal pain.? - CT scan with contrast performed in the ER demonstrated small-bowel obstruction with transition point in the right lower abdominal quadrant adjacent to an intra-abdominal abscess that measured 6.5 x 4.8 x 10.5 with associated fistulous connection to the adjacent dilated small bowel with abscess extending through the lateral abdominal herniation and involving the right ilial psoas muscle and right abdominal sidewall.? - On 08/13 CT-guided abscess catheter placed with 10 mL of haile fluid aspirated for aerobic/anaerobic cultures. - On 08/14 sepsis, lactic acidosis, leukocytosis completely resolved status post drainage and fluid resuscitation. NG tube removed patient tolerating clear liquid diet and advanced further. . Severe sepsis with HoTN -received 3 L of LR in the ER. Received another 1 L LR bolus on 08/13 due to borderline hypotension with good response. -likely due to intra-abdominal abscess. Leukocytosis, lactic acidosis, borderline hypotension all resolved status post fluid resuscitation and abscess catheter placement. BCx 08/12: Negative Fluid culture positive for ESBL E coli and was switched to meropenem on August 18. WBC normal and CRP 0.7. Continue meropenem Intra-abdominal abscess CT scan on admission showing a large intra-abdominal abscess along the right abdominal sidewall extending through a lateral abdominal herniation and involving the right ilial psoas muscle and right abdominal sidewall.? -abscess drain placed 08/13 -fistulous connection between intra-abdominal abscess an adjacent small bowel. General surgery managing -Zosyn and vancomycin started on admission. Considering the patient's ITALO on presentation, switched Zosyn t
[2023-08-24 14:00] VITALS: BP 105/54; PULSE 106; RESP 14; TEMP 36.9; O2SAT 98
[2023-08-24 20:34] VITALS: BP 108/46; PULSE 113; RESP 16; TEMP 36.3; O2SAT 95
[2023-08-24 20:45] VITALS: O2SAT 97
[2023-08-24] MEDS: GABAPENTIN 300 MG CAPSULE PO (20:50)
[2023-08-24] MEDS: MELATONIN 3 MG TABLET PO (20:51)
[2023-08-25] MEDS: HYDROcodone/acetaminophen (*CRX) 10-325 MG TABLET 1 TAB PO ×3 (03:52→22:00)
[2023-08-25] MEDS: LORazepam (*CRX) 0.5 MG TABLET PO ×2 (03:52→20:41)
[2023-08-25 05:45] VITALS: BP 105/44; PULSE 103; RESP 16; TEMP 36.1; O2SAT 97
[2023-08-25] MEDS: LEVOTHYROXINE SODIUM 50 MCG TABLET PO (05:59)
[2023-08-25 06:17] LABS: Hematocrit 29.8 % (37.0-47.0); Hemoglobin 8.7 g/dL (12.0-15.0); Mean Corpuscular HGB Conc 29.2 g/dl (32-36); Mean Corpuscular Hemoglobin 26.9 pg (26-34); Platelet Count Result 363 k/mm3 (150-375); Red Blood Count 3.24 M/mm3 (4.2-5.4); Red Cell Distribution Width 17.2 % (11.5-14.5); White Blood Count 8.8 K/mm3 (4.5-10.0)
[2023-08-25 06:37] LABS: Anion Gap 2 mmol/L (4-12); Blood Urea Nitrogen 20 mg/dL (7-17); Calcium 8.7 mg/dL (8.4-10.2); Carbon Dioxide 28 mmol/L (22-30); Chloride 105 mmol/L (98-107); Estimated CRCL calculation 32 ml/min; Estimated Glomerular Filt Rate 45; Glucose 89 mg/dL (65-110); Potassium 4.7 mmol/L (3.4-5.0); Sodium 135 mmol/L (137-145)
[2023-08-25] MEDS: FLUTICASONE/SALMETEROL 45-21 MCG INHALER 1 PUFF 2 PUFF INHALATION ×2 (08:32→20:15)
[2023-08-25] MEDS: ALBUTEROL SULFATE (*SP) AEROSOL 1 PUFF 2 PUFF INHALATION (08:33)
[2023-08-25] MEDS: THIAMINE HCL 100 MG TABLET PO (09:25)
[2023-08-25] MEDS: FOLIC ACID 1 MG TABLET PO (09:25)
[2023-08-25] MEDS: risperiDONE 0.5 MG TABLET PO (09:25)
[2023-08-25] MEDS: lamoTRIgine 100 MG TABLET PO ×2 (09:25→20:40)
[2023-08-25] MEDS: ASPIRIN 81 MG CHEWABLE TABLET PO (09:25)
[2023-08-25] MEDS: hydrOXYzine HCL 25 MG TABLET PO ×3 (09:25→20:40)
[2023-08-25] MEDS: DULoxetine HCL 20 MG CAPSULE.DR 40 MG PO (09:25)
[2023-08-25] MEDS: MULTIVITAMINS THERAPEUTIC TAB (*BKC) 1 TABLET PO (09:25)
[2023-08-25] MEDS: ASCORBIC ACID 500 MG TABLET PO (09:25)
[2023-08-25] MEDS: PANTOPRAZOLE 40 MG TABLET PO (09:25)
[2023-08-25] MEDS: ENOXAPARIN 30 MG/0.3 ML SYRINGE SUB-Q (09:26)
[2023-08-25] MEDS: ATORVASTATIN 40 MG TABLET PO (09:26)
--- NOTE | 2023-08-25 10:06 | PM.IMPN ---
Progress Note: A&P Assessment and Plan (1) Sepsis: Qualifiers: Sepsis type: sepsis due to unspecified organism Sepsis acute organ dysfunction status: with acute organ dysfunction Severe sepsis acute organ dysfunction type: acute renal failure Acute renal failure type: unspecified Severe sepsis shock status: without septic shock Qualified Code(s): A41.9 - Sepsis, unspecified organism; R65.20 - Severe sepsis without septic shock; N17.9 - Acute kidney failure, unspecified Code(s): A41.9 - Sepsis, unspecified organism Status: Acute Assessment and Plan: Severe sepsis with HoTN -received 3 L of LR in the ER. Received another 1 L LR bolus on 08/13 due to borderline hypotension with good response. -likely due to intra-abdominal abscess. Leukocytosis, lactic acidosis, borderline hypotension all resolved status post fluid resuscitation and abscess catheter placement. BCx 08/12: Negative Fluid culture positive for ESBL E coli and was switched to meropenem on August 18. WBC normal and CRP 0.7. Resume meropenem (2) Intra-abdominal abscess: Code(s): K65.1 - Peritoneal abscess Status: Acute Assessment and Plan: Intra-abdominal abscess CT Abd/Pelvis 08/12 with contrast demonstrated SBO with transition point in the right lower abdominal quadrant adjacent to an intra-abdominal abscess that measured 6.5 x 4.8 x 10.5 with associated fistulous connection to the adjacent dilated small bowel with abscess extending through the lateral abdominal herniation and involving the right ilial psoas muscle and right abdominal sidewall.? General surgery consulted. - On 08/13 CT-guided abscess catheter placed with 10 mL of haile fluid aspirated for aerobic/anaerobic cultures. - On 08/14 sepsis, lactic acidosis, leukocytosis completely resolved status post drainage and fluid resuscitation. Fistulous connection between intra-abdominal abscess an adjacent small bowel. General surgery managing -Zosyn and vancomycin started on admission. Considering the patient's ITALO on presentation, switched Zosyn to cefepime and Flagyl on 08/13 to try to avoid further kidney injury. Repeat CT showing improved abscess cavity Abscess culture with ESBL coli. Switched to meropenem and completed a course Drain output is slowly dropping overall: 120->100->60->30->90->50->150mL Could be associated with fistula. Consider SBS. Resume meropenem. 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 Removed on 08/15/2023. Resolved Currently tolerating current diet and has stool output. (5) Hydronephrosis: Code(s): N13.30 - Unspecified hydronephrosis Status: Acute Assessment and Plan: Moderate right obstructive uropathy. CT on admission showing moderate right pelviectasis and caliectasis, with dilation of the proximal right ureter. Nonobstructing right inferior pole calcification. The left kidney is normal. Repeat CT with persistent obstructive uropathy. Possibly due to underlying abscess. Renal function as below Urology consulted and appreciate their recommendation. Stent placement was being considered but now on hold Will need follow-up imaging after discharge to ensure resolution (6) ITALO (acute kidney injury): Code(s): N17.9 - Acute kidney failure, unspecified Status: Acute Assessment and Plan: ITALO likely multifactorial possibly prevalence of CKD as well. Treat abscess and fluid resuscitation Cr worsened up to 1.4. [place] related to HoTN. Fluid bolus given with improvement of BP. Metoprolol held. Cr be
--- NOTE | 2023-08-25 12:54 | PM.PNGS ---
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 drain study to prove EC fistula Subjective Subjective Date/Time Seen: 08/25/23 12:54 Interval history: no acute issues, fidel diet, no pain, ileostomy functioning Review of Systems Review of Systems: All systems reviewed & are unremarkable except as noted in HPI and below Exam Const: General: cooperative, comfortable, no acute distress and ill appearing Resp: Auscultation: clear to auscultation bilaterally Cardio: Rate: regular rate Rhythm: regular rhythm GI: Inspection: normal to inspection and non-distended GI Palp: No abdominal tenderness, Yes Soft to palpation, No Tenderness to palpation present (GI), No Guarding due to palpation present (GI) and No Rigid due to palpation Other: ileostomy - +fxn drain c mod output Objective Data Vital Signs Vital Signs: Vital Signs - 24 hr 08/24/23 14:00 08/24/23 20:34 08/24/23 20:45 Temperature 36.9 C 36.3 C L Pulse Rate 106 H 113 H Respiratory Rate 14 16 Blood Pressure 105/54 L 108/46 L Pulse Oximetry 98 95 97 Oxygen Delivery Room Air 08/25/23 05:45 Temperature 36.1 C L Pulse Rate 103 H Respiratory Rate 16 Blood Pressure 105/44 L Pulse Oximetry 97 Oxygen Delivery Intake/Output Intake/Output: Intake & Output 08/22/23 08/23/23 08/24/23 08/25/23 23:59 23:59 23:59 23:59 Intake Total 1532 1420 2127 237 Output Total 690 1100 1000 1450 Balance 422 665 9434 -1213 Meds/Results Medications: Active Medications Generic Name Dose Route Start Last Admin Trade Name Freq PRN Reason Stop Dose Admin Acetaminophen 650 mg 08/18/23 08:53 Acetaminophen 325 Mg Tablet PO Q4-6H PRN Pain Hydrocodone Bitart/Acetaminophen 1 tab 08/20/23 11:29 08/25/23 03:52 Hydrocodone/Acetaminophen (*Crx) 10-325 Mg Tablet PO 1 tab Q6H PRN Administration Pain Rated 7-10 Hydrocodone Bitart/Acetaminophen 1 tab 08/20/23 11:29 08/23/23 00:37 Hydrocodone/Acetaminophen (*Crx) 5-325 Mg Tablet PO 1 tab Q6H PRN Administration Pain Rated 4-6 Albuterol 2 puff 08/17/23 19:39 08/25/23 08:33 Albuterol Sulfate (*Sp) Aerosol 1 Puff INHALATION 2 puff Q4-6H PRN Administration Shortness Of Breath Or Wheezing Ascorbic Acid 500 mg 08/18/23 09:00 08/25/23 09:25 Ascorbic Acid 500 Mg Tablet PO 500 mg DAILY PARAS Administration Aspirin 81 mg 08/19/23 08:00 08/25/23 09:25 Aspirin 81 Mg Chewable Tablet PO 81 mg DAILY@0800 PARAS Administration Atorvastatin Calcium 40 mg 08/18/23 09:00 08/25/23 09:26 Atorvastatin 40 Mg Tablet PO 40 mg DAILY PARAS Administration Duloxetine HCl 40 mg 08/18/23 09:00 08/25/23 09:25 Duloxetine Hcl 20 Mg Capsule.Dr PO 40 mg DAILY PARAS Administration Enoxaparin Sodium 30 mg 08/23/23 09:00 08/25/23 09:26 Enoxaparin 30 Mg/0.3 Ml Syringe SUB-Q 30 mg DAILY PARAS Administration Folic Acid 1 mg 08/18/23 09:00 08/25/23 09:25 Folic Acid 1 Mg Tablet PO 1 mg DAILY PARAS Administration Gabapentin 300 mg 08/18/23 21:00 08/24/23 20:50 Gabapentin 300 Mg Capsule PO 300 mg HS [facility] Administration Hydroxyzine HCl 25 mg 08/25/23 10:16 Hydroxyzine Hcl 25 Mg Tablet PO QID PRN Itching Meropenem 1 gm in 100 mls @ 200 mls/hr 08/25/23 10:30 IVPB Q12HR [facility] Lamotrigine 100 mg 08/17/23 21:00 08/25/23 09:25 Lamotrigine 100 Mg Tablet PO 100 mg Q12HR PARAS Administration Levalbuterol HCl 0.63 mg 08/14/23 04:10 08/14/23 20:37 Levalbuterol Neb 1.25 Mg/3 Ml INHALATION 0.63 mg Q6HRT PRN Administration Shortness of breath/wheezing Levothyroxine Sodium 50 mcg 08/19/23 06:30 08/25/23 05:59 Levothyroxine Sodium 50 Mcg Tablet PO 50 mcg DAILY@0630 PARAS Administration Lorazepam 0.5 mg 08/20/23 11:30 08/25/23 03:
--- NOTE | 2023-08-25 13:19 | PC.NURSE ---
RN called pharm regarding meropenum and they are making some and will be tubing it down once its done
[2023-08-25 14:00] VITALS: BP 102/54; PULSE 103; RESP 18; TEMP 37.1; O2SAT 98
[2023-08-25] MEDS: MEROPENEM 1 GM/NS 100 ML 1 GM/100 ML BAG IVPB (14:14)
[2023-08-25] MEDS: ONDANSETRON HCL ODT 4 MG TABLET PO ×2 (15:28→20:40)
[2023-08-25] MEDS: SIMETHICONE 80 MG TAB.CHEW PO ×2 (15:28→20:40)
[2023-08-25 20:15] VITALS: PULSE 97; O2SAT 97
[2023-08-25 20:38] VITALS: BP 104/47; PULSE 105; RESP 16; TEMP 36.7; O2SAT 94
[2023-08-25] MEDS: GABAPENTIN 300 MG CAPSULE PO (20:40)
[2023-08-25] MEDS: MELATONIN 3 MG TABLET PO (20:40)
[2023-08-25] MEDS: ACETAMINOPHEN 325 MG TABLET 650 MG PO (20:41)
[2023-08-25] MEDS: SODIUM CHLORIDE 0.9% IV 100 ML 10 ML (21:00)
[2023-08-26] MEDS: MEROPENEM 1 GM/NS 100 ML 1 GM/100 ML BAG IVPB ×3 (03:00→20:43)
[2023-08-26 05:19] VITALS: BP 110/51; PULSE 88; RESP 18; TEMP 36.6; O2SAT 99
[2023-08-26] MEDS: LEVOTHYROXINE SODIUM 50 MCG TABLET PO (05:49)
[2023-08-26] MEDS: HYDROcodone/acetaminophen (*CRX) 10-325 MG TABLET 1 TAB PO ×2 (05:51→21:02)
--- NOTE | 2023-08-26 05:59 | WPDUROPN2 ---
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 Still no indications to place right ureteral stent. Subjective Subjective Date/Time Seen: 08/26/23 05:59 Interval history: Comfortable, no complaints Review of Systems Review of Systems: All systems reviewed & are unremarkable except as noted in HPI and below Exam Const: General: no acute distress Resp: Effort & Inspection: normal respiratory effort GI: Inspection: non-distended GI Palp: No abdominal tenderness and No Guarding due to palpation present (GI) Auscultation: normal bowel sounds Objective Data Vital Signs Vital Signs: Vital Signs - 24 hr 08/25/23 08:00 08/25/23 14:00 08/25/23 20:15 Temperature 98.7 F Pulse Rate 103 H 97 Respiratory Rate 18 Blood Pressure 102/54 L Pulse Oximetry 98 97 Oxygen Delivery Room Air Room Air 08/25/23 20:38 08/26/23 05:19 Temperature 98.1 F 97.9 F Pulse Rate 105 H 88 Respiratory Rate 16 18 Blood Pressure 104/47 L 110/51 L Pulse Oximetry 94 99 Oxygen Delivery Intake/Output Intake/Output: Intake & Output 08/23/23 08/24/23 08/25/23 08/26/23 23:59 23:59 23:59 23:59 Intake Total 1420 2127 573 Output Total 1100 1000 1800 600 Balance 320 1127 -1227 -600 Meds/Results Medications: Active Medications Generic Name Dose Route Start Last Admin Trade Name Freq PRN Reason Stop Dose Admin Acetaminophen 650 mg 08/18/23 08:53 08/25/23 20:41 Acetaminophen 325 Mg Tablet PO 650 mg Q4-6H PRN Administration Pain Hydrocodone Bitart/Acetaminophen 1 tab 08/20/23 11:29 08/26/23 05:51 Hydrocodone/Acetaminophen (*Crx) 10-325 Mg Tablet PO 1 tab Q6H PRN Administration Pain Rated 7-10 Hydrocodone Bitart/Acetaminophen 1 tab 08/20/23 11:29 08/23/23 00:37 Hydrocodone/Acetaminophen (*Crx) 5-325 Mg Tablet PO 1 tab Q6H PRN Administration Pain Rated 4-6 Albuterol 2 puff 08/17/23 19:39 08/25/23 08:33 Albuterol Sulfate (*Sp) Aerosol 1 Puff INHALATION 2 puff Q4-6H PRN Administration Shortness Of Breath Or Wheezing Ascorbic Acid 500 mg 08/18/23 09:00 08/25/23 09:25 Ascorbic Acid 500 Mg Tablet PO 500 mg DAILY PARAS Administration Aspirin 81 mg 08/19/23 08:00 08/25/23 09:25 Aspirin 81 Mg Chewable Tablet PO 81 mg DAILY@0800 PARAS Administration Atorvastatin Calcium 40 mg 08/18/23 09:00 08/25/23 09:26 Atorvastatin 40 Mg Tablet PO 40 mg DAILY PARAS Administration Duloxetine HCl 40 mg 08/18/23 09:00 08/25/23 09:25 Duloxetine Hcl 20 Mg Capsule.Dr PO 40 mg DAILY PARAS Administration Enoxaparin Sodium 30 mg 08/23/23 09:00 08/25/23 09:26 Enoxaparin 30 Mg/0.3 Ml Syringe SUB-Q 30 mg DAILY PARAS Administration Folic Acid 1 mg 08/18/23 09:00 08/25/23 09:25 Folic Acid 1 Mg Tablet PO 1 mg DAILY PARAS Administration Gabapentin 300 mg 08/18/23 21:00 08/25/23 20:40 Gabapentin 300 Mg Capsule PO 300 mg HS [facility] Administration Hydroxyzine HCl 25 mg 08/25/23 10:16 08/25/23 20:40 Hydroxyzine Hcl 25 Mg Tablet PO 25 mg QID PRN Administration Itching Meropenem 1 gm in 100 mls @ 200 mls/hr 08/26/23 11:00 IVPB Q12HR [facility] Lamotrigine 100 mg 08/17/23 21:00 08/25/23 20:40 Lamotrigine 100 Mg Tablet PO 100 mg Q12HR [facility] Administration Levalbuterol HCl 0.63 mg 08/14/23 04:10 08/14/23 20:37 Levalbuterol Neb 1.25 Mg/3 Ml INHALATION 0.63 mg Q6HRT PRN Administration Shortness of breath/wheezing Levothyroxine Sodium 50 mcg 08/19/23 06:30 08/26/23 05:49 Levothyroxine Sodium 50 Mcg Tablet PO 50 mcg DAILY@0630 PARAS Administration Lorazepam 0.5 mg 08/20/23 11:30 08/25/23 20:41 L
[2023-08-26 06:40] LABS: Basophils Percent Auto 0.1 % (0.2-1.2); Eosinophils Percent Auto 0.1 % (0-4.4); Hematocrit 28.2 % (37.0-47.0); Hemoglobin 8.6 g/dL (12.0-15.0); Immature Granulocyte Absolute 0.06 K/mm3 (0.00-0.031); Immature Granulocyte Percent A 0.8 % (0-0.5); Lymphocytes Absolute Auto 1.11 K/mm3 (0.9-3.2); Lymphocytes Percent Auto 15.3 % (18.3-44.2); Mean Corpuscular HGB Conc 30.5 g/dl (32-36); Mean Corpuscular Hemoglobin 27.2 pg (26-34); Mean Corpuscular Volume 89.2 fl (80-100); Mean Platelet Volume 9.8 fl (7.4-10.4); Monocytes Absolute Auto 0.9 K/mm3 (0.1-0.6); Monocytes Percent Auto 12.2 % (2.6-8.5); Neutrophils Absolute Auto 5.2 K/mm3 (1.3-6.7); Neutrophils Percent Auto 71.5 % (45.5-73.1); Platelet Count Result 326 k/mm3 (150-375); Red Blood Count 3.16 M/mm3 (4.2-5.4); Red Cell Distribution Width 16.6 % (11.5-14.5); White Blood Count 7.3 K/mm3 (4.5-10.0)
[2023-08-26 06:58] LABS: Anion Gap 0 mmol/L (4-12); Blood Urea Nitrogen 28 mg/dL (7-17); Calcium 8.9 mg/dL (8.4-10.2); Carbon Dioxide 31 mmol/L (22-30); Chloride 103 mmol/L (98-107); Estimated CRCL calculation 33 ml/min; Estimated Glomerular Filt Rate 45; Glucose 82 mg/dL (65-110); Phosphorus 3.4 mg/dL (2.5-4.5); Potassium 5.4 mmol/L (3.4-5.0); Sodium 134 mmol/L (137-145)
[2023-08-26] MEDS: FLUTICASONE/SALMETEROL 45-21 MCG INHALER 1 PUFF 2 PUFF INHALATION ×2 (07:22→20:41)
[2023-08-26] MEDS: ALBUTEROL SULFATE (*SP) AEROSOL 1 PUFF 2 PUFF INHALATION ×2 (07:23→20:41)
[2023-08-26 07:25] VITALS: PULSE 89; RESP 18; O2SAT 98
[2023-08-26] MEDS: MULTIVITAMINS THERAPEUTIC TAB (*BKC) 1 TABLET PO (08:31)
[2023-08-26] MEDS: THIAMINE HCL 100 MG TABLET PO (08:31)
[2023-08-26] MEDS: ASCORBIC ACID 500 MG TABLET PO (08:31)
[2023-08-26] MEDS: FOLIC ACID 1 MG TABLET PO (08:31)
[2023-08-26] MEDS: ATORVASTATIN 40 MG TABLET PO (08:31)
[2023-08-26] MEDS: DULoxetine HCL 20 MG CAPSULE.DR 40 MG PO (08:31)
[2023-08-26] MEDS: ASPIRIN 81 MG CHEWABLE TABLET PO (08:31)
[2023-08-26] MEDS: PANTOPRAZOLE 40 MG TABLET PO (08:31)
[2023-08-26] MEDS: lamoTRIgine 100 MG TABLET PO ×2 (08:38→20:42)
[2023-08-26] MEDS: risperiDONE 0.5 MG TABLET PO (08:39)
[2023-08-26] MEDS: ENOXAPARIN 30 MG/0.3 ML SYRINGE SUB-Q (08:42)
--- NOTE | 2023-08-26 10:16 | PM.IMPN ---
Progress Note: A&P Assessment and Plan (1) Sepsis: Qualifiers: Sepsis type: sepsis due to unspecified organism Sepsis acute organ dysfunction status: with acute organ dysfunction Severe sepsis acute organ dysfunction type: acute renal failure Acute renal failure type: unspecified Severe sepsis shock status: without septic shock Qualified Code(s): A41.9 - Sepsis, unspecified organism; R65.20 - Severe sepsis without septic shock; N17.9 - Acute kidney failure, unspecified Code(s): A41.9 - Sepsis, unspecified organism Status: Acute Assessment and Plan: Severe sepsis with HoTN - received 3 L of LR in the ER. Received another 1 L LR bolus on 08/13 due to borderline hypotension with good response. Likely due to intra-abdominal abscess. Leukocytosis, lactic acidosis, borderline hypotension all resolved status post fluid resuscitation and abscess catheter placement. BCx 08/12: Negative Abscess culture positive for ESBL E coli and was switched to meropenem on August 18. WBC normal and CRP 0.7. Meropenem scheduled to stop on 08/22. Meropenem resumed 08/24 (2) Intra-abdominal abscess: Code(s): K65.1 - Peritoneal abscess Status: Acute Assessment and Plan: CT Abd/Pelvis 08/12 with contrast demonstrated SBO with transition point in the right lower abdominal quadrant adjacent to an intra-abdominal abscess that measured 6.5 x 4.8 x 10.5 with associated fistulous connection to the adjacent dilated small bowel with abscess extending through the lateral abdominal herniation and involving the right ilial psoas muscle and right abdominal sidewall.? Also possible fistulous connection between intra-abdominal abscess and adjacent small bowel. General surgery consulted. 08/13 CT-guided abscess catheter placed with 10 mL of haile fluid aspirated for aerobic/anaerobic cultures. Zosyn and vancomycin started on admission. Considering the patient's ITALO on presentation, switched Zosyn to cefepime and Flagyl on 08/13 to try to avoid further kidney injury. Repeat CT 08/16 showing improved abscess cavity Abscess culture with ESBL coli. Switched to meropenem Drain output is slowly dropping overall: 30->90->50->150->390mL Could be associated with fistula. Consider SBS or fistulogram. Continue meropenem. 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 Removed on 08/15/2023. Resolved Currently tolerating current diet and has stool output. (5) Hydronephrosis: Code(s): N13.30 - Unspecified hydronephrosis Status: Acute Assessment and Plan: Moderate right obstructive uropathy. CT on admission showing moderate right pelviectasis and caliectasis, with dilation of the proximal right ureter. Nonobstructing right inferior pole calcification. The left kidney is normal. Repeat CT with persistent obstructive uropathy. Possibly due to underlying abscess. Renal function as below Urology consulted and appreciate their recommendation. Stent placement was being considered but now on hold Will need follow-up imaging after discharge to ensure resolution (6) ITALO (acute kidney injury): Code(s): N17.9 - Acute kidney failure, unspecified Status: Acute Assessment and Plan: ITALO likely multifactorial possibly prevalence of CKD as well. Treat abscess and fluid resuscitation Cr worsened up to 1.4. [place] related to HoTN. Fluid bolus given with improvement of BP. Metoprolol held. Cr better at 1.2 and stable IV fluids stopped. Follow renal function, UOP and electrolytes. (7) Anemia: Code(s): D6
[2023-08-26 12:07] LABS: Potassium 5.5 mmol/L (3.4-5.0)
[2023-08-26 14:00] VITALS: BP 101/53; PULSE 92; RESP 18; TEMP 36.5; O2SAT 100
--- NOTE | 2023-08-26 15:13 | PM.PNGS ---
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 Discussed the case with Dr. Kim. She will likely need to be taken back to surgery for an exploratory laparotomy and takedown of the fistula. Continue IV antibiotics for now and we will try adding her onto the surgery schedule. Plan I have discussed the patient's case and plan of care with Dr. Kim. Subjective Subjective Date/Time Seen: 08/26/23 15:13 Patient reports: no new complaints, tolerating a regular diet and afebrile Interval history: Patient seen today and reports having some RLQ abdominal pain at times through the weekend. This is unchanged from last week. She does not feel it is better or worse. She continues to eat well. She is tolerating her diet with no nausea or vomiting. Her ileostomy bag leaked earlier today and that was her only other complaint. She states that it got too full but this has not been an issue. Exam Const: General: comfortable and no acute distress Orientation/consciousness: patient oriented x3 GI: Inspection: non-distended GI Palp: Yes Soft to palpation, Yes Tenderness to palpation present (GI) (TTP in the RLQ and mild tenderness in the LLQ), No Guarding due to palpation present (GI), Yes No hepatosplenomegaly present, No Hernia present and No Rebound tenderness present Auscultation: normal bowel sounds Other: RLQ percutaneous drain with brown output Ileostomy functioning well with moderate output in the bag, stoma pink and healthy Objective Data Vital Signs Vital Signs: Vital Signs - 24 hr 08/25/23 20:15 08/25/23 20:38 08/26/23 05:19 Temperature 98.1 F 97.9 F Pulse Rate 97 105 H 88 Respiratory Rate 16 18 Blood Pressure 104/47 L 110/51 L Pulse Oximetry 97 94 99 Oxygen Delivery Room Air 08/26/23 07:25 08/26/23 07:25 08/26/23 08:30 Temperature Pulse Rate 89 89 Respiratory Rate 18 18 Blood Pressure Pulse Oximetry 98 Oxygen Delivery Room Air Room Air 08/26/23 14:00 Temperature 97.7 F Pulse Rate 92 Respiratory Rate 18 Blood Pressure 101/53 L Pulse Oximetry 100 Oxygen Delivery Intake/Output Intake/Output: Intake & Output 06/07/24 06/08/24 06/09/24 06/10/24 23:59 23:59 23:59 23:59 Intake Total 1420 2127 573 600 Output Total 1100 1000 1800 600 Balance 320 1127 -1227 0 Meds/Results Medications: Active Medications Generic Name Dose Route Start Last Admin Trade Name Freq PRN Reason Stop Dose Admin Acetaminophen 650 mg 08/18/23 08:53 08/25/23 20:41 Acetaminophen 325 Mg Tablet PO 650 mg Q4-6H PRN Administration Pain Hydrocodone Bitart/Acetaminophen 1 tab 08/20/23 11:29 08/26/23 05:51 Hydrocodone/Acetaminophen (*Crx) 10-325 Mg Tablet PO 1 tab Q6H PRN Administration Pain Rated 7-10 Hydrocodone Bitart/Acetaminophen 1 tab 08/20/23 11:29 08/23/23 00:37 Hydrocodone/Acetaminophen (*Crx) 5-325 Mg Tablet PO 1 tab Q6H PRN Administration Pain Rated 4-6 Albuterol 2 puff 08/17/23 19:39 08/26/23 07:23 Albuterol Sulfate (*Sp) Aerosol 1 Puff INHALATION 2 puff Q4-6H PRN Administration Shortness Of Breath Or Wheezing Ascorbic Acid 500 mg 08/18/23 09:00 08/26/23 08:31 Ascorbic Acid 500 Mg Tablet PO 500 mg DAILY PARAS Administration Aspirin 81 mg 08/19/23 08:00 08/26/23 08:31 Aspirin 81 Mg Chewable Tablet PO 81 mg DAILY@0800 PARAS Administration Atorvastatin Calcium 40 mg 08/18/23 09:00 08/26/23 08:31 Atorvastatin 40 Mg Tablet PO 40 mg DAILY PARAS Administration Duloxetine HCl 40 mg 08/18/23 09:00 08/26/23 08:31 Duloxetine Hcl 20 Mg Capsule.Dr PO 40 mg DAILY PARAS Administration Enoxaparin Sodium 30 mg 08/23/23 09:00 08/26/23 08:42 Enoxaparin 30 Mg/0.3 Ml Syringe SUB-Q 30 mg DAILY PARAS Administration Folic Acid
[2023-08-26] MEDS: HYDROcodone/acetaminophen (*CRX) 5-325 MG TABLET 1 TAB PO (16:50)
[2023-08-26] MEDS: SODIUM ZIRCONIUM CYCLOSILICATE 5 GM POWD.PACK PO (18:06)
[2023-08-26 20:41] VITALS: PULSE 102; O2SAT 95
[2023-08-26] MEDS: GABAPENTIN 300 MG CAPSULE PO (20:42)
[2023-08-26] MEDS: MELATONIN 3 MG TABLET PO (20:42)
[2023-08-26 21:07] VITALS: BP 100/54; PULSE 96; RESP 16; TEMP 36.9; O2SAT 99
[2023-08-27] MEDS: LORazepam (*CRX) 0.5 MG TABLET PO ×3 (02:14→20:18)
[2023-08-27 05:02] VITALS: BP 123/71; PULSE 107; RESP 16; TEMP 36.8; O2SAT 99
[2023-08-27] MEDS: HYDROcodone/acetaminophen (*CRX) 5-325 MG TABLET 1 TAB PO (06:36)
[2023-08-27] MEDS: LEVOTHYROXINE SODIUM 50 MCG TABLET PO (06:36)
[2023-08-27 06:45] LABS: Hematocrit 28.3 % (37.0-47.0); Hemoglobin 8.6 g/dL (12.0-15.0); Mean Corpuscular HGB Conc 30.4 g/dl (32-36); Mean Corpuscular Hemoglobin 27.3 pg (26-34); Mean Corpuscular Volume 89.8 fl (80-100); Mean Platelet Volume 9.9 fl (7.4-10.4); Platelet Count Result 331 k/mm3 (150-375); Red Blood Count 3.15 M/mm3 (4.2-5.4); Red Cell Distribution Width 16.5 % (11.5-14.5); White Blood Count 8.6 K/mm3 (4.5-10.0)
[2023-08-27 06:59] LABS: Anion Gap 4 mmol/L (4-12); Blood Urea Nitrogen 29 mg/dL (7-17); Calcium 8.4 mg/dL (8.4-10.2); Carbon Dioxide 25 mmol/L (22-30); Chloride 101 mmol/L (98-107); Estimated CRCL calculation 33 ml/min; Estimated Glomerular Filt Rate 50; Glucose 83 mg/dL (65-110); Potassium 4.7 mmol/L (3.4-5.0); Sodium 130 mmol/L (137-145)
[2023-08-27 08:18] VITALS: PULSE 110; RESP 18; O2SAT 100
[2023-08-27] MEDS: FLUTICASONE/SALMETEROL 45-21 MCG INHALER 1 PUFF 2 PUFF INHALATION ×2 (08:18→20:17)
[2023-08-27 09:20] VITALS: O2SAT 97
[2023-08-27] MEDS: ATORVASTATIN 40 MG TABLET PO (09:20)
[2023-08-27] MEDS: PANTOPRAZOLE 40 MG TABLET PO (09:20)
[2023-08-27] MEDS: ASPIRIN 81 MG CHEWABLE TABLET PO (09:20)
[2023-08-27] MEDS: MULTIVITAMINS THERAPEUTIC TAB (*BKC) 1 TABLET PO (09:20)
[2023-08-27] MEDS: FOLIC ACID 1 MG TABLET PO (09:20)
[2023-08-27] MEDS: risperiDONE 0.5 MG TABLET PO (09:20)
[2023-08-27] MEDS: ASCORBIC ACID 500 MG TABLET PO (09:20)
[2023-08-27] MEDS: DULoxetine HCL 20 MG CAPSULE.DR 40 MG PO (09:20)
[2023-08-27] MEDS: THIAMINE HCL 100 MG TABLET PO (09:21)
[2023-08-27] MEDS: lamoTRIgine 100 MG TABLET PO ×2 (09:21→20:17)
[2023-08-27] MEDS: ENOXAPARIN 30 MG/0.3 ML SYRINGE SUB-Q (09:21)
[2023-08-27] MEDS: MEROPENEM 1 GM/NS 100 ML 1 GM/100 ML BAG IVPB ×2 (09:22→21:44)
--- NOTE | 2023-08-27 09:28 | WPDPN ---
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 That is what caused her abscess to begin with. Abscess not been drain. Hopefully we can establish a good tract can be externally drained and have control of any sepsis. If the fistula does not close off then she will likely need operative intervention hopefully not needing to take down her end ileostomy in revising it. Continue diet for now. We will remove the drain later today and see if she has further problems. Plan on keeping her inpatient for now I then transferred back to correction. If she starts to clinically deteriorate then she will need laparotomy takedown it contains fistula and then hopefully not need to revise her end ileostomy but I did discuss this with her and I would do the abdomen had to be done. She understands the surgery may be necessary and for now agrees to the present care plan. Subjective Date/time seen: 08/27/23 09:28 Interval history: Patient continues to do well. No acute changes in status. She continues eat solid food and eat pretty much 100% of all of her meals. She has a good appetite. No abdominal pain. Output from the right lower quadrant abdominal drain still appears to be consistent with small-bowel contents. Exam GI: Other: Abdomen is soft and nondistended. The ostomy is working well with good output. Output from the right lower quadrant abdominal wall abdominal drain is still about 100cc a day. Still looks consistent with small bowel contents. Objective Data Vital Signs Vital Signs: Vital Signs - 24 hr 08/26/23 14:00 08/26/23 20:41 08/26/23 21:07 Temperature 36.5 C 36.9 C Pulse Rate 92 102 H 96 Respiratory Rate 18 16 Blood Pressure 101/53 L 100/54 L Pulse Oximetry 100 95 99 Oxygen Delivery Room Air Fraction of Inspired Oxygen 08/27/23 05:02 08/27/23 08:18 08/27/23 08:18 Temperature 36.8 C Pulse Rate 107 H 110 H Respiratory Rate 16 18 Blood Pressure 123/71 Pulse Oximetry 99 100 Oxygen Delivery Room Air Fraction of Inspired Oxygen 21 Intake/Output Intake/Output: Intake & Output 08/24/23 08/25/23 08/26/23 08/27/23 23:59 23:59 23:59 23:59 Intake Total 4607 573 1410 887 Output Total 1000 1800 670 750 Balance 1127 -4255 740 137 Meds/Results Medications: Active Medications Generic Name Dose Route Start Last Admin Trade Name Freq PRN Reason Stop Dose Admin Acetaminophen 650 mg 08/18/23 08:53 08/25/23 20:41 Acetaminophen 325 Mg Tablet PO 650 mg Q4-6H PRN Administration Pain Hydrocodone Bitart/Acetaminophen 1 tab 08/20/23 11:29 08/26/23 21:02 Hydrocodone/Acetaminophen (*Crx) 10-325 Mg Tablet PO 1 tab Q6H PRN Administration Pain Rated 7-10 Hydrocodone Bitart/Acetaminophen 1 tab 08/20/23 11:29 08/27/23 06:36 Hydrocodone/Acetaminophen (*Crx) 5-325 Mg Tablet PO 1 tab Q6H PRN Administration Pain Rated 4-6 Albuterol 2 puff 08/17/23 19:39 08/26/23 20:41 Albuterol Sulfate (*Sp) Aerosol 1 Puff INHALATION 2 puff Q4-6H PRN Administration Shortness Of Breath Or Wheezing Ascorbic Acid 500 mg 08/18/23 09:00 08/27/23 09:20 Ascorbic Acid 500 Mg Tablet PO 500 mg DAILY PARAS Administration Aspirin 81 mg 08/19/23 08:00 08/27/23 09:20 Aspirin 81 Mg Chewable Tablet PO 81 mg DAILY@0800 PARAS Administration Atorvastatin Calcium 40 mg 08/18/23 09:00 08/27/23 09:20 Atorvastatin 40 Mg Tablet PO 40 mg DAILY PARAS Administration Duloxetine HCl 40 mg 08/18/23 09:00 08/27/23 09:20 Duloxetine Hcl 20 Mg Capsule.Dr PO 40 mg DAILY PARAS Administration Enoxaparin Sodium 30 mg 08/23/23 09:00 08/27/23 09:21 Enoxaparin 30 Mg/0.3 Ml Syringe SUB-Q 30 mg DAILY PARAS Administration Folic Acid 1 mg 08/18/23 09:00 08/27/23 09:20
--- NOTE | 2023-08-27 13:27 | PM.IMPN ---
Progress Note: A&P Assessment and Plan (1) Sepsis: Qualifiers: Sepsis type: sepsis due to unspecified organism Sepsis acute organ dysfunction status: with acute organ dysfunction Severe sepsis acute organ dysfunction type: acute renal failure Acute renal failure type: unspecified Severe sepsis shock status: without septic shock Qualified Code(s): A41.9 - Sepsis, unspecified organism; R65.20 - Severe sepsis without septic shock; N17.9 - Acute kidney failure, unspecified Code(s): A41.9 - Sepsis, unspecified organism Status: Acute Assessment and Plan: Severe sepsis with HoTN - received 3 L of LR in the ER. Received another 1 L LR bolus on 08/13 due to borderline hypotension with good response. Likely due to intra-abdominal abscess. Leukocytosis, lactic acidosis, borderline hypotension all resolved status post fluid resuscitation and abscess catheter placement. BCx 08/12: Negative Abscess culture positive for ESBL E coli and was switched to meropenem on August 18. WBC normal and CRP 0.7. Meropenem was scheduled to stop on 08/22. Meropenem resumed 08/24 (2) Intra-abdominal abscess: Code(s): K65.1 - Peritoneal abscess Status: Acute Assessment and Plan: CT Abd/Pelvis 08/12 with contrast demonstrated SBO with transition point in the right lower abdominal quadrant adjacent to an intra-abdominal abscess that measured 6.5 x 4.8 x 10.5 with associated fistulous connection to the adjacent dilated small bowel with abscess extending through the lateral abdominal herniation and involving the right ilial psoas muscle and right abdominal sidewall.? Also possible fistulous connection between intra-abdominal abscess and adjacent small bowel. General surgery consulted. 08/13 CT-guided abscess catheter placed with 10 mL of haile fluid aspirated for aerobic/anaerobic cultures. Zosyn and vancomycin started on admission. Considering the patient's ITALO on presentation, switched Zosyn to cefepime and Flagyl on 08/13 to try to avoid further kidney injury. Repeat CT 08/16 showing improved abscess cavity Abscess culture with ESBL coli. Switched to meropenem Drain output was slowly dropping but higher at 390mL the other day Could be associated with enterocutaneous fistula. Fistulogram would not be helpful per radiology. GenSurg following and appreciate their input. Plan to remove drain and monitor Continue meropenem. 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 Removed on 08/15/2023. Resolved Currently tolerating current diet and has stool output. (5) Hydronephrosis: Code(s): N13.30 - Unspecified hydronephrosis Status: Acute Assessment and Plan: Moderate right obstructive uropathy. CT on admission showing moderate right pelviectasis and caliectasis, with dilation of the proximal right ureter. Nonobstructing right inferior pole calcification. The left kidney is normal. Repeat CT with persistent obstructive uropathy. Possibly due to underlying abscess. Renal function as below Urology consulted and appreciate their recommendation. Stent placement was being considered but now on hold Will need follow-up imaging after discharge to ensure resolution (6) ITALO (acute kidney injury): Code(s): N17.9 - Acute kidney failure, unspecified Status: Acute Assessment and Plan: ITALO likely multifactorial possibly prevalence of CKD as well. Treat abscess and fluid resuscitation Cr worsened up to 1.4. [place] related to HoTN. Fluid bolus given with improvement of BP. Metoprolol held. Cr bet
[2023-08-27 14:00] VITALS: BP 96/51; PULSE 90; RESP 18; TEMP 36.2; O2SAT 97
[2023-08-27] MEDS: MELATONIN 3 MG TABLET PO (20:17)
[2023-08-27] MEDS: HYDROcodone/acetaminophen (*CRX) 10-325 MG TABLET 1 TAB PO (20:17)
[2023-08-27] MEDS: hydrOXYzine HCL 25 MG TABLET PO (20:17)
[2023-08-27] MEDS: GABAPENTIN 300 MG CAPSULE PO (20:18)
[2023-08-27] MEDS: SIMETHICONE 80 MG TAB.CHEW PO (20:18)
[2023-08-27] MEDS: ONDANSETRON HCL ODT 4 MG TABLET PO (20:18)
[2023-08-27 20:21] VITALS: PULSE 91; RESP 18
[2023-08-27 21:35] VITALS: BP 111/69; PULSE 97; RESP 16; TEMP 36.1; O2SAT 99
[2023-08-27] MEDS: SODIUM CHLORIDE 0.9% IV 100 ML 20 ML (21:43)
[2023-08-28] MEDS: HYDROcodone/acetaminophen (*CRX) 10-325 MG TABLET 1 TAB PO ×2 (03:30→20:27)
[2023-08-28] MEDS: LORazepam (*CRX) 0.5 MG TABLET PO ×2 (03:31→20:27)
[2023-08-28 05:55] VITALS: BP 99/49; PULSE 85; RESP 20; TEMP 36.5; O2SAT 98
[2023-08-28 06:29] LABS: Anion Gap 2 mmol/L (4-12); Blood Urea Nitrogen 37 mg/dL (7-17); Calcium 9.1 mg/dL (8.4-10.2); Carbon Dioxide 31 mmol/L (22-30); Chloride 106 mmol/L (98-107); Estimated CRCL calculation 26 ml/min; Estimated Glomerular Filt Rate 38; Glucose 94 mg/dL (65-110); Potassium 5.2 mmol/L (3.4-5.0); Sodium 139 mmol/L (137-145)
[2023-08-28] MEDS: FLUTICASONE/SALMETEROL 45-21 MCG INHALER 1 PUFF 2 PUFF INHALATION ×2 (07:30→20:46)
[2023-08-28] MEDS: ATORVASTATIN 40 MG TABLET PO (08:40)
[2023-08-28] MEDS: MEROPENEM 1 GM/NS 100 ML 1 GM/100 ML BAG IVPB ×2 (08:40→20:27)
[2023-08-28] MEDS: ENOXAPARIN 30 MG/0.3 ML SYRINGE SUB-Q (08:40)
[2023-08-28] MEDS: MULTIVITAMINS THERAPEUTIC TAB (*BKC) 1 TABLET PO (08:40)
[2023-08-28] MEDS: DULoxetine HCL 20 MG CAPSULE.DR 40 MG PO (08:41)
[2023-08-28] MEDS: lamoTRIgine 100 MG TABLET PO ×2 (08:41→20:27)
[2023-08-28] MEDS: FOLIC ACID 1 MG TABLET PO (08:41)
[2023-08-28] MEDS: PANTOPRAZOLE 40 MG TABLET PO (08:41)
[2023-08-28] MEDS: THIAMINE HCL 100 MG TABLET PO (08:41)
[2023-08-28] MEDS: ASCORBIC ACID 500 MG TABLET PO (08:41)
[2023-08-28] MEDS: ASPIRIN 81 MG CHEWABLE TABLET PO (08:41)
[2023-08-28] MEDS: risperiDONE 0.5 MG TABLET PO (08:41)
--- NOTE | 2023-08-28 09:38 | PCNFU ---
Nutrition Follow-Up Complete: Inadequate oral intake related to NPO/CL diet as evidenced by patient not having met estimated nutrition needs x 3 days. Goal: 1. Diet to be advanced by f/u. - Goal Met 2. Weight to remain at or above current weight of 48.1 kg. _ Goal not met Pt current nutrition is Regular diet, low potassium. Ensure Enlive BID for additional 350 kcal and 20 g protein each. Thrive nutritional ice cream BID for additional 270 kcal and 9 g protein each . Intakes imrpvoed 25-100% meals. 100% last 2 meals. Nutrition recommendation: No new nutrition recommendations. Continue with current nutrition care plan and orders. Agree with orders. Last recorded weight is 43 kg. Bowel Motility: +2 BMs 08/27/23 Labs Reviewed: K+ 5.2, GFR 38, BUN 37, Cre 1.4 Meds Noted: Flagyl, Zofran, protonix Skin: No pressure inuries Additional Notes: Intakes improved. Continue current orders. Monitor diet advancement, weight, labs, appetite
--- NOTE | 2023-08-28 11:25 | PM.IMPN ---
Progress Note: A&P Assessment and Plan (1) Hydronephrosis: Code(s): N13.30 - Unspecified hydronephrosis Status: Acute (2) Complete small bowel obstruction: Code(s): K56.601 - Complete intestinal obstruction, unspecified as to cause Status: Acute (3) Intra-abdominal abscess: Code(s): K65.1 - Peritoneal abscess Status: Acute (4) Sepsis: Qualifiers: Sepsis acute organ dysfunction status: unspecified Sepsis type: sepsis due to unspecified organism Qualified Code(s): A41.9 - Sepsis, unspecified organism Code(s): A41.9 - Sepsis, unspecified organism Status: Acute (5) Urinary retention: Code(s): R33.9 - Retention of urine, unspecified Status: Acute (6) Sepsis: Qualifiers: Sepsis type: sepsis due to unspecified organism Sepsis acute organ dysfunction status: with acute organ dysfunction Severe sepsis acute organ dysfunction type: acute renal failure Acute renal failure type: unspecified Severe sepsis shock status: without septic shock Qualified Code(s): A41.9 - Sepsis, unspecified organism; R65.20 - Severe sepsis without septic shock; N17.9 - Acute kidney failure, unspecified Code(s): A41.9 - Sepsis, unspecified organism Status: Acute Plan Septic shock/abdominal abscess/E coli/hydronephrosis IV fluid resuscitation Monitor lactic acid levels Repeat CBC CMP WBC is 8.6. Two sets of Blood cultures negative Wound culture grew E coli Sputum grew yeast urine cultures negative Monitor albumin' 3.0 Monitoring of mental status. Steroids suggested if septic shock on his positive fluid resuscitation and vasopressors. IV antibiotics meropenem CKA stage IIIB cause septic shock serum creatinine 1.2/1.1/1.4 Avoid nephrotoxic drugs. Monitor antihypertensive drug therapy. Avoid NSAIDs. Routine CMP monitoring GFR. Monitor electrolytes especially potassium 5.2 Pharmacy does medications. Small-bowel obstruction/hydronephrosis A surgical consult. Patient scheduled for a cystoscopy tomorrow. CT scan results reviewed Possibility of underlying abscess ANEMIA of acute blood loss Hgb POA No reports of bleeding Hgb f/U daily H&H 8.6/8.7/8.6 Tranfuse if hemoglobin less than 7 1 unit of blood transfusion given on 08/21 GI has consulted may need for possible EGD and colonoscopy Gait Instability Service to Physical Therapy Service to Home Care (PT) Home exercise program Instruction in assistive device Patient is at risk. Counseled accordingly on risk reduction.as above Subjective Date/time seen: 08/28/23 11:25 Interval history: Patient comfortable denies any complaints of chest pain no shortness of breath no fevers chills nausea vomiting denied Review of Systems Review of Systems: All systems reviewed & are unremarkable except as noted in HPI and below Exam Narrative: GENERAL: Well appearing, no acute distress. HEAD: Normocephalic, atraumatic. NECK: Supple. No adenopathy, no masses. RESPIRATORY: respirations nonlabored. , no rales, wheezing. CARDIOVASCULAR: Regular rate and rhythm without murmurs, . Peripheral pulses 2+ and equal bilaterally. ABDOMINAL: Soft, nontender, ileostomy drain in place MUSCULOSKELETAL: no Epigastric and no hypochondrial tenderness SKIN: Warm, dry, NEURO: A&O X3. Moves all extremities Objective Data Vital Signs Vital Signs: Vital Signs - 24 hr 08/27/23 14:00 08/27/23 20:21 08/27/23 21:35 Temperature 36.2 C L 36.1 C L Pulse Rate 90 91 97 Respiratory Rate 18 18 16 Blood Pressure 96/51 L 111/69 Pulse Oximetry 97 99 08/28/23 05:55 Temperature 36.5 C Pulse Rate 85 Respiratory Rate 20 Blood Pressure 99/49 L Pulse Oximetry 98 Intake/Output Intake/Output: Intake & Output 08/25/23 08/26/23 08/27/23 08/28/23 23:59 23:59 23:59 23:59 Intake Total 573 1410 2230 462 Output Total 3650 582 5538 Balance -1227 740 730 462
[2023-08-28 12:03] LABS: Hematocrit 30.2 % (37.0-47.0); Mean Corpuscular HGB Conc 29.8 g/dl (32-36); Mean Corpuscular Volume 90.7 fl (80-100); Mean Platelet Volume 10.6 fl (7.4-10.4); Platelet Count Result 390 k/mm3 (150-375); Red Blood Count 3.33 M/mm3 (4.2-5.4); Red Cell Distribution Width 16.6 % (11.5-14.5); White Blood Count 5.1 K/mm3 (4.5-10.0)
[2023-08-28 12:11] LABS: Alanine Aminotransferase 60 U/L (6-35); Alkaline Phosphatase 93 U/L (38-126); Aspartate Amino Transferase 43 U/L (14-36); Bilirubin,Total 0.2 mg/dL (0.2-1.3)
--- NOTE | 2023-08-28 12:45 | PM.PNGS ---
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 After discussing with Dr. Kim, her pigtail drain was removed today at the bedside. Will continue to monitor her for a few days. If her fistula does not close off and she deteriorates, then she will need laparotomy with takedown of enterocutaneous fistula. She understands. WBC count normal. Continue antibiotics for now. Plan I have discussed the patient's case and plan of care with Dr. Kim. Subjective Subjective Date/Time Seen: 08/28/23 12:45 Interval history: The patient seen today and feeling tired. She reports pain in her left arm near her peripheral IV. Denies any abdominal pain. Ileostomy functioning well. She is tolerating her diet and eating 100% of her meals. Exam Const: General: comfortable and no acute distress Orientation/consciousness: patient oriented x3 GI: Inspection: non-distended GI Palp: Yes Soft to palpation, No Tenderness to palpation present (GI), No Guarding due to palpation present (GI) and No Rebound tenderness present Auscultation: normal bowel sounds Other: RLQ suture removed and pigtail drain removed. Scant brown output that still appears consistent with small bowel contents in tubing. Gauze dressing applied. Objective Data Vital Signs Vital Signs: Vital Signs - 24 hr 08/27/23 14:00 08/27/23 20:21 08/27/23 21:35 Temperature 97.1 F L 96.9 F L Pulse Rate 90 91 97 Respiratory Rate 18 18 16 Blood Pressure 96/51 L 111/69 Pulse Oximetry 97 99 08/28/23 05:55 Temperature 97.7 F Pulse Rate 85 Respiratory Rate 20 Blood Pressure 99/49 L Pulse Oximetry 98 Intake/Output Intake/Output: Intake & Output 08/25/23 08/26/23 08/27/23 08/28/23 23:59 23:59 23:59 23:59 Intake Total 573 1410 2230 462 Output Total 8069 017 8869 Balance -1227 740 730 462 Meds/Results Medications: Active Medications Generic Name Dose Route Start Last Admin Trade Name Freq PRN Reason Stop Dose Admin Acetaminophen 650 mg 08/18/23 08:53 08/25/23 20:41 Acetaminophen 325 Mg Tablet PO 650 mg Q4-6H PRN Administration Pain Hydrocodone Bitart/Acetaminophen 1 tab 08/20/23 11:29 08/28/23 03:30 Hydrocodone/Acetaminophen (*Crx) 10-325 Mg Tablet PO 1 tab Q6H PRN Administration Pain Rated 7-10 Hydrocodone Bitart/Acetaminophen 1 tab 08/20/23 11:29 08/27/23 06:36 Hydrocodone/Acetaminophen (*Crx) 5-325 Mg Tablet PO 1 tab Q6H PRN Administration Pain Rated 4-6 Albuterol 2 puff 08/17/23 19:39 08/26/23 20:41 Albuterol Sulfate (*Sp) Aerosol 1 Puff INHALATION 2 puff Q4-6H PRN Administration Shortness Of Breath Or Wheezing Ascorbic Acid 500 mg 08/18/23 09:00 08/28/23 08:41 Ascorbic Acid 500 Mg Tablet PO 500 mg DAILY PARAS Administration Aspirin 81 mg 08/19/23 08:00 08/28/23 08:41 Aspirin 81 Mg Chewable Tablet PO 81 mg DAILY@0800 PARAS Administration Atorvastatin Calcium 40 mg 08/18/23 09:00 08/28/23 08:40 Atorvastatin 40 Mg Tablet PO 40 mg DAILY PARAS Administration Duloxetine HCl 40 mg 08/18/23 09:00 08/28/23 08:41 Duloxetine Hcl 20 Mg Capsule.Dr PO 40 mg DAILY PARAS Administration Enoxaparin Sodium 30 mg 08/23/23 09:00 08/28/23 08:40 Enoxaparin 30 Mg/0.3 Ml Syringe SUB-Q 30 mg DAILY PARAS Administration Folic Acid 1 mg 08/18/23 09:00 08/28/23 08:41 Folic Acid 1 Mg Tablet PO 1 mg DAILY PARAS Administration Gabapentin 300 mg 08/18/23 21:00 08/27/23 20:18 Gabapentin 300 Mg Capsule PO 300 mg HS PARAS Administration Hydroxyzine HCl 25 mg 08/25/23 10:16 08/27/23 20:17 Hydroxyzine Hcl 25 Mg Tablet PO 25 mg QID PRN Administration Itching Meropenem 1 gm in 100 mls @ 200 mls/hr 08/26/23 11:00
[2023-08-28 14:00] VITALS: BP 95/60; PULSE 120; RESP 18; TEMP 36.3; O2SAT 99
[2023-08-28] MEDS: ONDANSETRON HCL ODT 4 MG TABLET PO (20:26)
[2023-08-28] MEDS: MELATONIN 3 MG TABLET PO (20:27)
[2023-08-28] MEDS: GABAPENTIN 300 MG CAPSULE PO (20:27)
[2023-08-28 20:46] VITALS: PULSE 86; RESP 18
[2023-08-28 21:45] VITALS: BP 99/56; PULSE 110; RESP 18; TEMP 37.2; O2SAT 97
[2023-08-29] MEDS: LEVOTHYROXINE SODIUM 50 MCG TABLET PO (05:51)
[2023-08-29 06:00] VITALS: BP 108/54; PULSE 86; RESP 16; TEMP 36.7; O2SAT 100
[2023-08-29 06:43] LABS: Hematocrit 29.1 % (37.0-47.0); Hemoglobin 8.6 g/dL (12.0-15.0); Mean Corpuscular HGB Conc 29.6 g/dl (32-36); Mean Corpuscular Hemoglobin 26.9 pg (26-34); Mean Corpuscular Volume 90.9 fl (80-100); Mean Platelet Volume 10.2 fl (7.4-10.4); Platelet Count Result 360 k/mm3 (150-375); Red Cell Distribution Width 16.6 % (11.5-14.5); White Blood Count 6.4 K/mm3 (4.5-10.0)
[2023-08-29 06:58] LABS: Alanine Aminotransferase 53 U/L (6-35); Albumin Level 3.2 g/dL (3.5-5.1); Alkaline Phosphatase 85 U/L (38-126); Anion Gap 3 mmol/L (4-12); Aspartate Amino Transferase 44 U/L (14-36); Bilirubin,Total 0.3 mg/dL (0.2-1.3); Blood Urea Nitrogen 40 mg/dL (7-17); Calcium 8.7 mg/dL (8.4-10.2); Carbon Dioxide 28 mmol/L (22-30); Chloride 105 mmol/L (98-107); Estimated CRCL calculation 27 ml/min; Estimated Glomerular Filt Rate 41; Glucose 66 mg/dL (65-110); Potassium 4.9 mmol/L (3.4-5.0); Sodium 136 mmol/L (137-145)
[2023-08-29] MEDS: ASPIRIN 81 MG CHEWABLE TABLET PO (09:31)
[2023-08-29] MEDS: ATORVASTATIN 40 MG TABLET PO (09:31)
[2023-08-29] MEDS: MEROPENEM 1 GM/NS 100 ML 1 GM/100 ML BAG IVPB (09:31)
[2023-08-29] MEDS: DULoxetine HCL 20 MG CAPSULE.DR 40 MG PO (09:35)
[2023-08-29] MEDS: risperiDONE 0.5 MG TABLET PO (09:37)
[2023-08-29] MEDS: FOLIC ACID 1 MG TABLET PO (09:37)
[2023-08-29] MEDS: MULTIVITAMINS THERAPEUTIC TAB (*BKC) 1 TABLET PO (09:37)
[2023-08-29] MEDS: THIAMINE HCL 100 MG TABLET PO (09:37)
[2023-08-29] MEDS: lamoTRIgine 100 MG TABLET PO ×2 (09:37→21:15)
[2023-08-29] MEDS: ASCORBIC ACID 500 MG TABLET PO (09:37)
[2023-08-29] MEDS: PANTOPRAZOLE 40 MG TABLET PO (09:37)
[2023-08-29] MEDS: FLUTICASONE/SALMETEROL 45-21 MCG INHALER 1 PUFF 2 PUFF INHALATION ×2 (09:46→21:08)
[2023-08-29 09:47] VITALS: O2SAT 98
--- NOTE | 2023-08-29 09:48 | PM.PNGS ---
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 Pigtail drain has been removed. She appears stable today and WBC normal. Will repeat a CT scan of the abdomen and pelvis today with oral contrast to re-evaluate the fistula. Discussed with the patient that if she reaccumulates an abscess and the fistula is still open, then she will likely require surgery to takedown the fistula. Will also switch her to oral antibiotics today and stop the IV Meropenem. Start Augmentin 875-125 mg Q12H and we will plan to continue this for another two weeks if she continues to do well. Plan I have discussed the patient's case and plan of care with Dr. Kim. Subjective Subjective Date/Time Seen: 08/29/23 09:48 Patient reports: nausea and afebrile Interval history: Patient seen this morning after eating breakfast. She reports feeling nauseous this morning. She has not been vomiting. She is still eating well and took an over 75% of her breakfast tray. She tells me that she always has intermittent nausea, but this is the first day she has complained of this to me. No other complaints at this time. Denies any abdominal pain. Exam Const: General: comfortable and no acute distress Orientation/consciousness: patient oriented x3 GI: Inspection: non-distended GI Palp: Yes Soft to palpation, Yes Tenderness to palpation present (GI) (still mild RLQ tenderness, exam unchanged from past few days), No Guarding due to palpation present (GI) and No Rebound tenderness present Auscultation: normal bowel sounds Other: RLQ ostomy with good output in bag, functioning well RLQ gauze dressing dry and intact, it has not been changed since removing the drain yesterday Objective Data Vital Signs Vital Signs: Vital Signs - 24 hr 08/28/23 14:00 08/28/23 20:46 08/28/23 21:45 Temperature 97.3 F L 98.9 F Pulse Rate 120 H 86 110 H Respiratory Rate 18 18 18 Blood Pressure 95/60 L 99/56 L Pulse Oximetry 99 97 Oxygen Delivery 08/28/23 20:00 08/29/23 06:00 08/29/23 09:47 Temperature 98.1 F Pulse Rate 86 Respiratory Rate 16 Blood Pressure 108/54 L Pulse Oximetry 100 98 Oxygen Delivery Room Air Room Air Intake/Output Intake/Output: Intake & Output 08/26/23 08/27/23 08/28/23 08/29/23 23:59 23:59 23:59 23:59 Intake Total 1410 2230 784 100 Output Total 670 1500 1060 Balance 740 730 -276 100 Meds/Results Medications: Active Medications Generic Name Dose Route Start Last Admin Trade Name Freq PRN Reason Stop Dose Admin Acetaminophen 650 mg 08/18/23 08:53 08/25/23 20:41 Acetaminophen 325 Mg Tablet PO 650 mg Q4-6H PRN Administration Pain Hydrocodone Bitart/Acetaminophen 1 tab 08/20/23 11:29 08/28/23 20:27 Hydrocodone/Acetaminophen (*Crx) 10-325 Mg Tablet PO 1 tab Q6H PRN Administration Pain Rated 7-10 Hydrocodone Bitart/Acetaminophen 1 tab 08/20/23 11:29 08/27/23 06:36 Hydrocodone/Acetaminophen (*Crx) 5-325 Mg Tablet PO 1 tab Q6H PRN Administration Pain Rated 4-6 Albuterol 2 puff 08/17/23 19:39 08/26/23 20:41 Albuterol Sulfate (*Sp) Aerosol 1 Puff INHALATION 2 puff Q4-6H PRN Administration Shortness Of Breath Or Wheezing Ascorbic Acid 500 mg 08/18/23 09:00 08/29/23 09:37 Ascorbic Acid 500 Mg Tablet PO 500 mg DAILY PARAS Administration Aspirin 81 mg 08/19/23 08:00 08/29/23 09:31 Aspirin 81 Mg Chewable Tablet PO 81 mg DAILY@0800 PARAS Administration Atorvastatin Calcium 40 mg 08/18/23 09:00 08/29/23 09:31 Atorvastatin 40 Mg Tablet PO 40 mg DAILY PARAS Administration Duloxetine HCl 40 mg 08/18/23 09:00 08/29/23 09:35 Duloxetine Hcl 20 Mg Capsule.Dr PO 40 mg DAILY PARAS Administration Enoxaparin Sodiu
--- NOTE | 2023-08-29 11:10 | PM.IMPN ---
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 Steroids suggested if septic shock on his positive fluid resuscitation and vasopressors. Antibiotics Augmentin p.o. CKA stage IIIB cause septic shock serum creatinine 1.2/1.1/1.4/1.3 Avoid nephrotoxic drugs. Monitor antihypertensive drug therapy. Avoid NSAIDs. Routine CMP monitoring GFR. Monitor electrolytes especially potassium 5.2/4.9 Pharmacy does medications. Small-bowel obstruction/hydronephrosis A surgical consult. Patient scheduled for a cystoscopy tomorrow. CT scan results reviewed Possibility of underlying abscess ANEMIA of acute blood loss Hgb POA No reports of bleeding Hgb f/U daily H&H 8.6/8.7/8.6 Tranfuse if hemoglobin less than 7 1 unit of blood transfusion given on 08/21 Gait Instability Service to Physical Therapy Service to Home Care (PT) Home exercise program Instruction in assistive device Patient is at risk. Counseled accordingly on risk reduction.as above Surgical input Patient likely had an enterocutaneous fistula develop that caused her abscess, which is s/p percutaneous drainage. Pigtail drain has been removed. Will repeat a CT scan of the abdomen and pelvis today with oral contrast to re-evaluate the fistula. she will likely require surgery to takedown the fistula. switch her to oral antibiotics today and stop the IV Meropenem. Start Augmentin 875-125 mg Q12H Subjective Date/time seen: 08/29/23 11:10 Interval history: Patient seen evaluated doing well no fever no chills want to go home will tearful today Review of Systems Review of Systems: All systems reviewed & are unremarkable except as noted in HPI and below Exam Narrative: GENERAL: Well appearing, no acute distress. HEAD: Normocephalic, atraumatic. NECK: Supple. No adenopathy, no masses. RESPIRATORY: respirations nonlabored. , no rales, wheezing. CARDIOVASCULAR: Regular rate and rhythm without murmurs, . Peripheral pulses 2+ and equal bilaterally. ABDOMINAL: Soft, nontender, ileostomy drain RLQ in place with good drainage MUSCULOSKELETAL: no Epigastric and no hypochondrial tenderness SKIN: Warm, dry, NEURO: A&O X3. Moves all extremities Objective Data Vital Signs Vital Signs: Vital Signs - 24 hr 08/28/23 14:00 08/28/23 20:46 08/28/23 21:45 Temperature 36.3 C L 37.2 C Pulse Rate 120 H 86 110 H Respiratory Rate 18 18 18 Blood Pressure 95/60 L 99/56 L Pulse Oximetry 99 97 Oxygen Delivery 08/28/23 20:00 08/29/23 06:00 08/29/23 09:47 Temperature 36.7 C Pulse Rate 86 Respiratory Rate 16 Blood Pressure 108/54 L Pulse Oximetry 100 98 Oxygen Delivery Room Air Room Air 08/29/23 08:00 Temperature Pulse Rate Respiratory Rate Blood Pressure Pulse Oximetry Oxygen Delivery Room Air Intake/Output Intake/Output: Intake & Output 08/26/23 08/27/23 08/28/23 08/29/23 23:59 23:59 23:59 23:59 Intake Total 1410 2230 784 100 Output Total 670 1500 1060 Balance 740 730 -276 100 Meds/Results Medications: Active Medications Generic Name Dose Route Start Last Admin Trade Name Freq PRN Reason Stop Dose Admin Acetaminophen 650 mg 08/18/23 08:53 08/25/23 20:41 Acetaminophen 325 Mg Tablet PO 650 mg Q4-6H PRN Administration Pain Hydrocodone Bitart/Acetaminophen 1 tab 08/20/23 11:29 08/28/23 20:27 Hydrocodone/Acetaminophen (*Crx) 10-325 Mg Tablet PO 1 tab Q6H PRN Administration Pain Rated 7-10 Hydrocodone Bitart/Acetaminophen 1 tab 08/20/23 11:29 08/27/23 06:36 Hydrocod
[2023-08-29] MEDS: LORazepam (*CRX) 0.5 MG TABLET PO ×2 (12:01→21:15)
[2023-08-29] MEDS: HYDROcodone/acetaminophen (*CRX) 10-325 MG TABLET 1 TAB PO ×2 (12:01→21:15)
[2023-08-29 14:00] VITALS: BP 101/58; PULSE 98; RESP 18; TEMP 36.1; O2SAT 99
[2023-08-29 20:52] VITALS: BP 98/52; PULSE 98; RESP 18; TEMP 37.1; O2SAT 100
[2023-08-29 21:07] VITALS: PULSE 108; RESP 18; O2SAT 96
[2023-08-29] MEDS: MELATONIN 3 MG TABLET PO (21:15)
[2023-08-29] MEDS: AMOXICILLIN/CLAVULANATE K 875-125 MG TAB 1 TABLET PO (21:15)
[2023-08-29] MEDS: GABAPENTIN 300 MG CAPSULE PO (21:15)
[2023-08-29] MEDS: ONDANSETRON HCL ODT 4 MG TABLET PO (21:43)
[2023-08-30 05:10] VITALS: BP 117/61; PULSE 110; RESP 16; TEMP 36.6; O2SAT 99
[2023-08-30] MEDS: FLUTICASONE/SALMETEROL 45-21 MCG INHALER 1 PUFF 2 PUFF INHALATION ×2 (08:36→19:56)
[2023-08-30] MEDS: lamoTRIgine 100 MG TABLET PO ×2 (09:46→20:44)
[2023-08-30] MEDS: ASPIRIN 81 MG CHEWABLE TABLET PO (09:46)
[2023-08-30] MEDS: FOLIC ACID 1 MG TABLET PO (09:46)
[2023-08-30] MEDS: risperiDONE 0.5 MG TABLET PO (09:46)
[2023-08-30] MEDS: MULTIVITAMINS THERAPEUTIC TAB (*BKC) 1 TABLET PO (09:46)
[2023-08-30] MEDS: PANTOPRAZOLE 40 MG TABLET PO (09:46)
[2023-08-30] MEDS: AMOXICILLIN/CLAVULANATE K 875-125 MG TAB 1 TABLET PO ×2 (09:46→20:44)
[2023-08-30] MEDS: DULoxetine HCL 20 MG CAPSULE.DR 40 MG PO (09:46)
[2023-08-30] MEDS: ATORVASTATIN 40 MG TABLET PO (09:46)
[2023-08-30] MEDS: ASCORBIC ACID 500 MG TABLET PO (09:46)
[2023-08-30] MEDS: THIAMINE HCL 100 MG TABLET PO (09:46)
[2023-08-30] MEDS: LEVOTHYROXINE SODIUM 50 MCG TABLET PO (09:47)
--- NOTE | 2023-08-30 09:47 | PCOTNOTE ---
Attempted to see pt. for occupational therapy re-evaluation. Pt. declines at this time stating I don't feel well , while curled up tightly in bed, nursing aware and present. Following
--- NOTE | 2023-08-30 10:46 | PM.IMPN ---
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 Steroids suggested if septic shock on his positive fluid resuscitation and vasopressors. Antibiotics Augmentin p.o. CKA stage IIIB cause septic shock serum creatinine 1.2/1.1/1.4/1.3 Avoid nephrotoxic drugs. Monitor antihypertensive drug therapy. Avoid NSAIDs. Routine CMP monitoring GFR. Monitor electrolytes especially potassium 5.2/4.9 Pharmacy does medications. Small-bowel obstruction/hydronephrosis A surgical consult. Patient scheduled for a cystoscopy tomorrow. CT scan results reviewed Possibility of underlying abscess ANEMIA of acute blood loss Hgb POA No reports of bleeding Hgb f/U daily H&H 8.6/8.7/8.6 Tranfuse if hemoglobin less than 7 1 unit of blood transfusion given on 08/21 Gait Instability Service to Physical Therapy Service to Home Care (PT) Home exercise program Instruction in assistive device Patient is at risk. Counseled accordingly on risk reduction.as above Surgical input Patient likely had an enterocutaneous fistula develop that caused her abscess, which is s/p percutaneous drainage. Pigtail drain has been removed. Will repeat a CT scan of the abdomen and pelvis today with oral contrast to re-evaluate the fistula. she will likely require surgery to takedown the fistula. switch her to oral antibiotics today and stop the IV Meropenem. Start Augmentin 875-125 mg Q12H Subjective Date/time seen: 08/30/23 10:46 Interval history: appears comfortable denies any kind Review of Systems Review of Systems: All systems reviewed & are unremarkable except as noted in HPI and below Exam Narrative: GENERAL: Well appearing, no acute distress. HEAD: Normocephalic, atraumatic. NECK: Supple. No adenopathy, no masses. RESPIRATORY: respirations nonlabored. , no rales, wheezing. CARDIOVASCULAR: Regular rate and rhythm without murmurs, . Peripheral pulses 2+ and equal bilaterally. ABDOMINAL: Soft, nontender, ileostomy drain RLQ in place with good drainage MUSCULOSKELETAL: no Epigastric and no hypochondrial tenderness SKIN: Warm, dry, NEURO: A&O X3. Moves all extremities Objective Data Vital Signs Vital Signs: Vital Signs - 24 hr 08/29/23 14:00 08/29/23 20:52 08/29/23 21:07 Temperature 36.1 C L 37.1 C Pulse Rate 98 98 Respiratory Rate 18 18 Blood Pressure 101/58 L 98/52 L Pulse Oximetry 99 100 96 Oxygen Delivery Room Air 08/29/23 21:07 08/29/23 20:00 08/30/23 05:10 Temperature 36.6 C Pulse Rate 108 H 110 H Respiratory Rate 18 16 Blood Pressure 117/61 Pulse Oximetry 99 Oxygen Delivery Room Air Intake/Output Intake/Output: Intake & Output 08/27/23 08/28/23 08/29/23 08/30/23 23:59 23:59 23:59 23:59 Intake Total 2230 784 1420 840 Output Total 1500 1060 851 950 Balance 730 -276 569 -110 Meds/Results Medications: Active Medications Generic Name Dose Route Start Last Admin Trade Name Freq PRN Reason Stop Dose Admin Acetaminophen 650 mg 08/18/23 08:53 08/25/23 20:41 Acetaminophen 325 Mg Tablet PO 650 mg Q4-6H PRN Administration Pain Hydrocodone Bitart/Acetaminophen 1 tab 08/20/23 11:29 08/29/23 21:15 Hydrocodone/Acetaminophen (*Crx) 10-325 Mg Tablet PO 1 tab Q6H PRN Administration Pain Rated 7-10 Hydrocodone Bitart/Acetaminophen 1 tab 08/20/23 11:29 08/27/23 06:36 Hydrocodone/Acetaminophen (*Crx) 5-325 Mg Tablet PO 1 tab Q6H PRN Administration Pain Rated 4-6 Albuterol 2 puff 08/17/23 19:39 08/26/23 20:41 Albuterol Sulfate (*
[2023-08-30 11:50] LABS: Hematocrit 30.3 % (37.0-47.0); Hemoglobin 8.9 g/dL (12.0-15.0); Mean Corpuscular HGB Conc 29.4 g/dl (32-36); Mean Corpuscular Hemoglobin 26.9 pg (26-34); Mean Corpuscular Volume 91.5 fl (80-100); Mean Platelet Volume 9.7 fl (7.4-10.4); Platelet Count Result 319 k/mm3 (150-375); Red Blood Count 3.31 M/mm3 (4.2-5.4); Red Cell Distribution Width 16.3 % (11.5-14.5); White Blood Count 7.6 K/mm3 (4.5-10.0)
[2023-08-30 12:12] LABS: Alanine Aminotransferase 56 U/L (6-35); Albumin Level 3.2 g/dL (3.5-5.1); Alkaline Phosphatase 94 U/L (38-126); Anion Gap 4 mmol/L (4-12); Aspartate Amino Transferase 50 U/L (14-36); Bilirubin,Total 0.3 mg/dL (0.2-1.3); Blood Urea Nitrogen 46 mg/dL (7-17); Carbon Dioxide 30 mmol/L (22-30); Chloride 104 mmol/L (98-107); Estimated CRCL calculation 32 ml/min; Estimated Glomerular Filt Rate 45; Glucose 103 mg/dL (65-110); Potassium 5.1 mmol/L (3.4-5.0); Sodium 138 mmol/L (137-145)
[2023-08-30] MEDS: LORazepam (*CRX) 0.5 MG TABLET PO ×2 (12:58→20:52)
[2023-08-30] MEDS: HYDROcodone/acetaminophen (*CRX) 10-325 MG TABLET 1 TAB PO ×2 (12:58→20:44)
[2023-08-30 14:00] VITALS: BP 105/52; PULSE 83; RESP 18; TEMP 36.7; O2SAT 100
--- NOTE | 2023-08-30 14:53 | WPDPN ---
Progress Note: A&P Assessment and Plan (1) Intra-abdominal abscess: Code(s): K65.1 - Peritoneal abscess Status: Acute Assessment and Plan: Abscess has been drained. Been removed. Repeat CT scan reveals no significant residual abscess. There is a small amount of contrast which extremities from the bowel in this area. Hopefully the abscess cannot reach her in the small EC fistula resolves. Continue oral antibiotics with Augmentin for right now. IV antibiotics have been stopped. Monitor white blood cell count her clinical condition over the weekend. If no issues and I think she be transferred back to her care facility on Saturday. 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 Hopefully it will close. Right now there is no clinical indications to perform laparotomy and takedown of the fistula and the she has returned abscess or has output of enteric contents through the old drain site. If doing okay then she can be discharged back to her care facility early next week. Continue oral antibiotics for now through the weekend and see how she does. Subjective Date/time seen: 08/30/23 14:53 Interval history: Patient clinically stable. Tolerating regular food. Actually has good appetite and is eating all of her meals. No nausea or vomiting. Good output through her end ileostomy. CT scan abdomen pelvis yesterday showed mode complete resolution of the right lower quadrant abdomen abdominal wall abscess. There is a cyst very small amount of contrast extravasation into a small tract likely from the small bowel. White blood count remains normal no tachycardia no abdominal pain. Exam GI: Other: Abdomen is soft and nondistended. End ileostomy working well and viable. Good output. Drain site closed now without any drainage and she has no redness of the skin at that site and no palpable mass or fluctuance. Objective Data Vital Signs Vital Signs: Vital Signs - 24 hr 08/29/23 20:52 08/29/23 21:07 08/29/23 21:07 Temperature 37.1 C Pulse Rate 98 108 H Respiratory Rate 18 18 Blood Pressure 98/52 L Pulse Oximetry 100 96 Oxygen Delivery Room Air 08/29/23 20:00 08/30/23 05:10 08/30/23 08:00 Temperature 36.6 C Pulse Rate 110 H Respiratory Rate 16 Blood Pressure 117/61 Pulse Oximetry 99 Oxygen Delivery Room Air Room Air Intake/Output Intake/Output: Intake & Output 08/27/23 08/28/23 08/29/23 08/30/23 23:59 23:59 23:59 23:59 Intake Total 2230 784 1420 1080 Output Total 1500 7579 706 2292 Balance 730 -742 781 -714 Meds/Results Medications: Active Medications Generic Name Dose Route Start Last Admin Trade Name Freq PRN Reason Stop Dose Admin Acetaminophen 650 mg 08/18/23 08:53 08/25/23 20:41 Acetaminophen 325 Mg Tablet PO 650 mg Q4-6H PRN Administration Pain Hydrocodone Bitart/Acetaminophen 1 tab 08/30/23 12:09 08/30/23 12:58 Hydrocodone/Acetaminophen (*Crx) 10-325 Mg Tablet PO 1 tab Q6H PRN Administration Pain Rated 7-10 Hydrocodone Bitart/Acetaminophen 1 tab 08/30/23 12:09 Hydrocodone/Acetaminophen (*Crx) 5-325 Mg Tablet PO Q6H PRN Pain Rated 4-6 Albuterol 2 puff 08/17/23 19:39 08/26/23 20:41 Albuterol Sulfate (*Sp) Aerosol 1 Puff INHALATION 2 puff Q4-6H PRN Administration Shortness Of Breath Or Wheezing Amoxicillin/Clavulanate Potassium 1 tablet 08/29/23 21:00 08/30/23 09:46 Amoxicillin/Clavulanate K 875-125 Mg Tab PO 09/13/23 09:00 1 tablet Q12HR PARAS Administration Ascorbic Acid 500 mg 08/18/23 09:00 08/30/23 09:46 Ascorbic Acid 500 Mg Tablet PO 500 mg DAILY PARAS Administration Aspirin 81 mg 08/19/23 08:00 08/30/23 09:46 Aspirin 81 Mg Chewable Tablet PO 81 mg DAILY@0800 PARAS Administration Atorvastatin Calcium 40 mg 08/18/23 09:00 08/30/23 09:46 Atorvastatin 40 Mg
[2023-08-30 19:57] VITALS: PULSE 90; RESP 18
[2023-08-30] MEDS: ALBUTEROL SULFATE (*SP) AEROSOL 1 PUFF 2 PUFF INHALATION (19:57)
[2023-08-30] MEDS: GABAPENTIN 300 MG CAPSULE PO (20:44)
[2023-08-30] MEDS: MELATONIN 3 MG TABLET PO (20:44)
[2023-08-30] MEDS: ONDANSETRON HCL ODT 4 MG TABLET PO (20:45)
[2023-08-30 22:00] VITALS: BP 104/59; PULSE 99; RESP 16; TEMP 37.2; O2SAT 100
[2023-08-31 06:00] VITALS: BP 100/59; PULSE 97; RESP 12; TEMP 36.9; O2SAT 98
[2023-08-31] MEDS: LEVOTHYROXINE SODIUM 50 MCG TABLET PO (06:16)
[2023-08-31] MEDS: LORazepam (*CRX) 0.5 MG TABLET PO ×2 (06:16→17:39)
[2023-08-31 07:08] VITALS: PULSE 83; RESP 18; O2SAT 99
[2023-08-31] MEDS: FLUTICASONE/SALMETEROL 45-21 MCG INHALER 1 PUFF 2 PUFF INHALATION ×2 (07:09→20:42)
[2023-08-31] MEDS: ASPIRIN 81 MG CHEWABLE TABLET PO (09:48)
[2023-08-31] MEDS: AMOXICILLIN/CLAVULANATE K 875-125 MG TAB 1 TABLET PO ×2 (09:48→22:42)
[2023-08-31] MEDS: DULoxetine HCL 20 MG CAPSULE.DR 40 MG PO (09:48)
[2023-08-31] MEDS: lamoTRIgine 100 MG TABLET PO ×2 (09:49→22:42)
[2023-08-31] MEDS: THIAMINE HCL 100 MG TABLET PO (09:49)
[2023-08-31] MEDS: ATORVASTATIN 40 MG TABLET PO (09:49)
[2023-08-31] MEDS: ASCORBIC ACID 500 MG TABLET PO (09:50)
[2023-08-31] MEDS: ENOXAPARIN 30 MG/0.3 ML SYRINGE SUB-Q (09:50)
[2023-08-31] MEDS: MULTIVITAMINS THERAPEUTIC TAB (*BKC) 1 TABLET PO (09:50)
[2023-08-31] MEDS: FOLIC ACID 1 MG TABLET PO (09:50)
[2023-08-31] MEDS: PANTOPRAZOLE 40 MG TABLET PO (09:51)
[2023-08-31] MEDS: risperiDONE 0.5 MG TABLET PO (09:56)
[2023-08-31] MEDS: HYDROcodone/acetaminophen (*CRX) 10-325 MG TABLET 1 TAB PO ×2 (09:58→22:54)
[2023-08-31] MEDS: hydrOXYzine HCL 25 MG TABLET PO (10:02)
[2023-08-31 11:07] LABS: Hematocrit 32.7 % (37.0-47.0); Hemoglobin 9.7 g/dL (12.0-15.0); Mean Corpuscular HGB Conc 29.7 g/dl (32-36); Mean Corpuscular Hemoglobin 26.9 pg (26-34); Mean Corpuscular Volume 90.8 fl (80-100); Mean Platelet Volume 9.7 fl (7.4-10.4); Platelet Count Result 333 k/mm3 (150-375); Red Cell Distribution Width 16.4 % (11.5-14.5); White Blood Count 5.4 K/mm3 (4.5-10.0)
[2023-08-31 11:26] LABS: Alanine Aminotransferase 60 U/L (6-35); Albumin Level 3.7 g/dL (3.5-5.1); Alkaline Phosphatase 95 U/L (38-126); Anion Gap 4 mmol/L (4-12); Aspartate Amino Transferase 49 U/L (14-36); Bilirubin,Total 0.5 mg/dL (0.2-1.3); Blood Urea Nitrogen 40 mg/dL (7-17); Calcium 9.5 mg/dL (8.4-10.2); Carbon Dioxide 30 mmol/L (22-30); Chloride 105 mmol/L (98-107); Estimated CRCL calculation 27 ml/min; Estimated Glomerular Filt Rate 38; Glucose 48 mg/dL (65-110); Potassium 4.4 mmol/L (3.4-5.0); Sodium 139 mmol/L (137-145)
[2023-08-31 11:33] LABS: Glucose Point of Care 77 mg/dl (65-105)
[2023-08-31 12:03] LABS: Glucose Point of Care 93 mg/dl (65-105)
[2023-08-31 14:00] VITALS: BP 91/53; PULSE 89; RESP 18; TEMP 36.4; O2SAT 100
--- NOTE | 2023-08-31 14:17 | PM.IMPN ---
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 -presented this admission (08/12) with c/o abdominal pain and was found to have EC fistula. IR drain was placed and has since been removed on 08/27. She was treated with IV antibiotics (meropenem), since transitioned to Augmentin. -WBC 5.4 (24.0), afebrile -monitor clinically for leukocytosis, fever after IR drain removal -Per surgery, may be okay to discharge back to her facility on Saturday (from their standpoint) should she continue to do well -p.r.n. [place] for pain -added Bentyl for abdominal cramping and high-output ileostomy (2) ITALO (acute kidney injury): Code(s): N17.9 - Acute kidney failure, unspecified Status: Acute Assessment and Plan: Creatinine elevated today at 1.4 -started on D5 NS at 100 an hour -blood pressures have been soft 90s over 50s -she is net-1 L with total ileostomy output of 1.3 L (3) Hydronephrosis: Code(s): N13.30 - Unspecified hydronephrosis Status: Acute Assessment and Plan: Hydronephrosis seen on imaging at admission -urology was consulted -suspected hydronephrosis related to retroperitoneal inflammation secondary to large upper abdominal wall abscess -poor candidate for a stent -monitor clinically -creatinine continues to increase she may need repeat CT sooner -recommend CT repeat in 1 month (4) Paranoid schizophrenia: Code(s): F20.0 - Paranoid schizophrenia Status: Acute Assessment and Plan: Currently receiving Cymbalta, risperidone, Lamictal. Home Invega is on hold as it is non-formulary. -tearful today -has p.r.n. Ativan, hydroxyzine (5) Electrolyte abnormality: Code(s): E87.8 - Other disorders of electrolyte and fluid balance, not elsewhere classified Status: Acute Assessment and Plan: Hyperkalemia, hyponatremia, hypoglycemia -concern for possible adrenal insufficiency -random cortisol ordered -patient was started on Solu-Cortef is 40 mg IV push q.6 -cosyntropin test ordered for the morning (6) Anemia: Code(s): D64.9 - Anemia, unspecified Status: Acute Assessment and Plan: Hemoglobin 9.7 g/dL -no obvious bleeding -transfuse hemoglobin less than 7 g/dl -1 unit of pRBC given on 08/22/23 -TIBC, Fe, B12, folate ordered and pending Plan Feeding:low potassium, regular diet with ensure Analgesia: tylenol, norco, bentyl Thromboembolic prophylaxis: scd Ulcer prophylaxis: lovenox Glycemic control: dextrose gtt---hypoglycemic episode today Bowel regimen: na Lines: PIV Antibiotics:augmentin Disposition: back to SNF when medically ready Subjective Date/time seen: 08/31/23 14:17 Interval history: 08/30: Patient is seen at the bedside in no acute distress. She experienced a hypoglycemia episode (blood glucose 48) which resolved with apple juice. She also has lower blood pressure today and has been having high potassium intermittently. I'm wondering if she is having some adrenal insufficiency that could be causing her myriad of symptoms. Will check cortisol stimulation test for the morning. She is complaining of abdominal cramping, will try Bentyl. She is tearful and talking about her estranged daughters. Review of Systems Review of Systems: All systems reviewed & are unremarkable except as noted in HPI and below Exam Narrative: General: thin, frail, appears older than stated age HEENT: normocephalic, atraumatic. Mucous membranes moist. EOMI, PERRLA, bilateral sclera anicteric, no conjunctival injection. Neck supple without JVD, lymphadenopathy, or bruit. Respiratory: clear to auscultation bilaterally. No rales/rhonic/wheezes. Cardiovascular: Regular rate and rhythm, normal S1-S2 upon auscultation. No murmurs, rubs, or clic
[2023-08-31 14:21] VITALS: BP 98/56
[2023-08-31 16:35] LABS: Glucose Point of Care 91 mg/dl (65-105)
[2023-08-31 16:38] LABS: Cortisol Random 6.22 ug/dL
[2023-08-31] MEDS: DEXTROSE 5%/0.9% SOD CHL 1,000 ML 100 ML IV CONT (17:30)
[2023-08-31] MEDS: HYDROCORTISONE SODIUM SUCCINATE 100 MG/2 ML VIAL 40 MG IV PUSH (17:30)
[2023-08-31] MEDS: ONDANSETRON HCL ODT 4 MG TABLET PO (17:39)
[2023-08-31 21:10] VITALS: BP 103/56; PULSE 88; RESP 18; TEMP 36.8; O2SAT 99
[2023-08-31 21:34] LABS: Glucose Point of Care 196 mg/dl (65-105)
[2023-08-31] MEDS: GABAPENTIN 300 MG CAPSULE PO (22:42)
[2023-08-31] MEDS: MELATONIN 3 MG TABLET PO (22:42)
[2023-09-01] MEDS: LORazepam (*CRX) 0.5 MG TABLET PO ×3 (00:09→20:30)
[2023-09-01] MEDS: HYDROCORTISONE SODIUM SUCCINATE 100 MG/2 ML VIAL 40 MG IV PUSH (01:43)
[2023-09-01] MEDS: COSYNTROPIN 0.25 MG/ML VIAL IV PUSH (04:39)
[2023-09-01 05:26] LABS: Basophils Percent Auto 0.1 % (0.2-1.2); Hematocrit 29.3 % (37.0-47.0); Hemoglobin 8.9 g/dL (12.0-15.0); Immature Granulocyte Absolute 0.13 K/mm3 (0.00-0.031); Immature Granulocyte Percent A 1.3 % (0-0.5); Lymphocytes Absolute Auto 0.82 K/mm3 (0.9-3.2); Lymphocytes Percent Auto 8.4 % (18.3-44.2); Mean Corpuscular HGB Conc 30.4 g/dl (32-36); Mean Corpuscular Volume 88.8 fl (80-100); Mean Platelet Volume 10.1 fl (7.4-10.4); Monocytes Absolute Auto 0.3 K/mm3 (0.1-0.6); Monocytes Percent Auto 2.7 % (2.6-8.5); Neutrophils Absolute Auto 8.6 K/mm3 (1.3-6.7); Neutrophils Percent Auto 87.5 % (45.5-73.1); Platelet Count Result 297 k/mm3 (150-375); Red Cell Distribution Width 15.8 % (11.5-14.5); White Blood Count 9.8 K/mm3 (4.5-10.0)
[2023-09-01 05:42] LABS: Alanine Aminotransferase 49 U/L (6-35); Albumin Level 3.4 g/dL (3.5-5.1); Alkaline Phosphatase 91 U/L (38-126); Anion Gap 4 mmol/L (4-12); Aspartate Amino Transferase 36 U/L (14-36); Bilirubin,Total 0.4 mg/dL (0.2-1.3); Blood Urea Nitrogen 38 mg/dL (7-17); Calcium 8.5 mg/dL (8.4-10.2); Carbon Dioxide 26 mmol/L (22-30); Chloride 105 mmol/L (98-107); Estimated CRCL calculation 29 ml/min; Estimated Glomerular Filt Rate 41; Glucose 180 mg/dL (65-110); Magnesium 1.8 mg/dL (1.6-2.3); Potassium 5.1 mmol/L (3.4-5.0); Sodium 135 mmol/L (137-145)
[2023-09-01 05:54] LABS: Hemoglobin A1C 4.7 % (<5.7)
[2023-09-01 06:00] VITALS: BP 116/58; PULSE 93; RESP 20; TEMP 37.1; O2SAT 99
[2023-09-01 06:03] LABS: Iron 58 ug/dL (37-170)
[2023-09-01 06:12] LABS: Percent Iron Saturation 22 % (20-50)
[2023-09-01 06:47] LABS: Folic Acid > 20.0 ng/mL (2.76->20)
[2023-09-01] MEDS: LEVOTHYROXINE SODIUM 50 MCG TABLET PO (06:48)
[2023-09-01] MEDS: FLUTICASONE/SALMETEROL 45-21 MCG INHALER 1 PUFF 2 PUFF INHALATION ×2 (07:40→20:45)
[2023-09-01 07:53] LABS: Glucose Point of Care 213 mg/dl (65-105)
[2023-09-01] MEDS: lamoTRIgine 100 MG TABLET PO ×2 (09:04→20:29)
[2023-09-01] MEDS: PANTOPRAZOLE 40 MG TABLET PO (09:05)
[2023-09-01] MEDS: ASCORBIC ACID 500 MG TABLET PO (09:05)
[2023-09-01] MEDS: FOLIC ACID 1 MG TABLET PO (09:05)
[2023-09-01] MEDS: ATORVASTATIN 40 MG TABLET PO (09:05)
[2023-09-01] MEDS: THIAMINE HCL 100 MG TABLET PO (09:05)
[2023-09-01] MEDS: MULTIVITAMINS THERAPEUTIC TAB (*BKC) 1 TABLET PO (09:05)
[2023-09-01] MEDS: risperiDONE 0.5 MG TABLET PO (09:05)
[2023-09-01] MEDS: DULoxetine HCL 20 MG CAPSULE.DR 40 MG PO (09:06)
[2023-09-01] MEDS: AMOXICILLIN/CLAVULANATE K 875-125 MG TAB 1 TABLET PO ×2 (09:06→20:29)
[2023-09-01] MEDS: ENOXAPARIN 30 MG/0.3 ML SYRINGE SUB-Q (09:06)
[2023-09-01] MEDS: ASPIRIN 81 MG CHEWABLE TABLET PO (09:06)
[2023-09-01] MEDS: ONDANSETRON HCL ODT 4 MG TABLET PO ×2 (09:07→20:30)
[2023-09-01 10:09] VITALS: PULSE 93; O2SAT 99
--- NOTE | 2023-09-01 11:19 | PM.PNGS ---
Progress Note: A&P Assessment and Plan (1) Intra-abdominal abscess: Code(s): K65.1 - Peritoneal abscess Status: Acute Assessment and Plan: Continue oral antibiotics Possibly discharge Saturday if continuing to improve. 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 Hopefully it will close. Right now there is no clinical indications to perform laparotomy and takedown of the fistula and the she has returned abscess or has output of enteric contents through the old drain site. If doing okay then she can be discharged back to her care facility early next week. Continue oral antibiotics for now through the weekend and see how she does. Subjective Subjective Date/Time Seen: 08/31/2023 at 1430 Interval history: Patient doing well. Feeling better. Tolerating solid diet. No fevers. Exam GI: Inspection: non-distended and other (ileostomy patent and functioning) GI Palp: Yes Soft to palpation, No Tenderness to palpation present (GI) and No Guarding due to palpation present (GI) Auscultation: normal bowel sounds Other: Drain site healing well without erythema or drainage Objective Data Vital Signs Vital Signs: Vital Signs - 24 hr 08/31/23 14:00 08/31/23 14:21 08/31/23 21:10 Temperature 36.4 C 36.8 C Pulse Rate 89 88 Respiratory Rate 18 18 Blood Pressure 91/53 L 98/56 L 103/56 L Pulse Oximetry 100 99 Oxygen Delivery 09/01/23 06:00 09/01/23 10:09 Temperature 37.1 C Pulse Rate 93 93 Respiratory Rate 20 Blood Pressure 116/58 L Pulse Oximetry 99 99 Oxygen Delivery Room Air Intake/Output Intake/Output: Intake & Output 08/29/23 08/30/23 08/31/23 09/01/23 23:59 23:59 23:59 23:59 Intake Total 1420 1520 1646 905 Output Total 851 9310 1843 500 Balance 569 -4640 -335 405 Meds/Results Medications: Active Medications Generic Name Dose Route Start Last Admin Trade Name Freq PRN Reason Stop Dose Admin Acetaminophen 650 mg 08/18/23 08:53 08/25/23 20:41 Acetaminophen 325 Mg Tablet PO 650 mg Q4-6H PRN Administration Pain Hydrocodone Bitart/Acetaminophen 1 tab 08/30/23 12:09 08/31/23 22:54 Hydrocodone/Acetaminophen (*Crx) 10-325 Mg Tablet PO 1 tab Q6H PRN Administration Pain Rated 7-10 Hydrocodone Bitart/Acetaminophen 1 tab 08/30/23 12:09 Hydrocodone/Acetaminophen (*Crx) 5-325 Mg Tablet PO Q6H PRN Pain Rated 4-6 Albuterol 2 puff 08/17/23 19:39 08/30/23 19:57 Albuterol Sulfate (*Sp) Aerosol 1 Puff INHALATION 2 puff Q4-6H PRN Administration Shortness Of Breath Or Wheezing Amoxicillin/Clavulanate Potassium 1 tablet 08/29/23 21:00 09/01/23 09:06 Amoxicillin/Clavulanate K 875-125 Mg Tab PO 09/13/23 09:00 1 tablet Q12HR PARAS Administration Ascorbic Acid 500 mg 08/18/23 09:00 09/01/23 09:05 Ascorbic Acid 500 Mg Tablet PO 500 mg DAILY PARAS Administration Aspirin 81 mg 08/19/23 08:00 09/01/23 09:06 Aspirin 81 Mg Chewable Tablet PO 81 mg DAILY@0800 PARAS Administration Atorvastatin Calcium 40 mg 08/18/23 09:00 09/01/23 09:05 Atorvastatin 40 Mg Tablet PO 40 mg DAILY PARAS Administration Dextrose 12.5 gm 08/31/23 11:29 Dextrose 50% 25 Gm/50 Ml Syringe IV PUSH PRN PRN Hypoglycemia Protocol Dicyclomine HCl 20 mg 08/31/23 14:51 Dicyclomine Hcl 10 Mg Capsule PO QID PRN Abdominal Cramping Duloxetine HCl 40 mg 08/18/23 09:00 09/01/23 09:06 Duloxetine Hcl 20 Mg Capsule.Dr PO 40 mg DAILY PARAS Administration Enoxaparin Sodium 30 mg 08/23/23 09:00 09/01/23 09:06 Enoxaparin 30 Mg/0.3 Ml Syringe SUB-Q 30 mg DAILY PARAS Administration Folic Acid 1 mg 08/18/23 09:00 09/01/23 09:05 Folic Acid 1 Mg Tablet PO 1 mg DAILY PARAS Administration Gabapentin 300 mg 08/18/23 21:00 08/31/23 22:42 Gabapentin 300 Mg Capsule PO 300 m
[2023-09-01 11:42] LABS: Glucose Point of Care 129 mg/dl (65-105)
--- NOTE | 2023-09-01 12:28 | PM.PNGS ---
Progress Note: A&P Assessment and Plan (1) Intra-abdominal abscess: Code(s): K65.1 - Peritoneal abscess Status: Acute Assessment and Plan: Continue oral antibiotics Possibly discharge Saturday if continuing to improve. 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 Hopefully it will close. Right now there is no clinical indications to perform laparotomy and takedown of the fistula and the she has returned abscess or has output of enteric contents through the old drain site. If doing okay then she can be discharged back to her care facility early next week. Continue oral antibiotics for now through the weekend and see how she does. Subjective Subjective Date/Time Seen: 09/01/23 12:28 Interval history: Tolerating diet. No abdominal pain. Feeling better. Exam GI: Inspection: non-distended and other (ileostomy patent and functioning) GI Palp: Yes Soft to palpation, No Tenderness to palpation present (GI) and No Guarding due to palpation present (GI) Auscultation: normal bowel sounds Other: Drain site healing well without erythema or drainage Objective Data Vital Signs Vital Signs: Vital Signs - 24 hr 08/31/23 14:00 08/31/23 14:21 08/31/23 21:10 Temperature 36.4 C 36.8 C Pulse Rate 89 88 Respiratory Rate 18 18 Blood Pressure 91/53 L 98/56 L 103/56 L Pulse Oximetry 100 99 Oxygen Delivery 09/01/23 06:00 09/01/23 10:09 Temperature 37.1 C Pulse Rate 93 93 Respiratory Rate 20 Blood Pressure 116/58 L Pulse Oximetry 99 99 Oxygen Delivery Room Air Intake/Output Intake/Output: Intake & Output 08/29/23 08/30/23 08/31/23 09/01/23 23:59 23:59 23:59 23:59 Intake Total 1420 1520 1646 905 Output Total 851 0410 8390 950 Balance 569 -1030 -197 -45 Meds/Results Medications: Active Medications Generic Name Dose Route Start Last Admin Trade Name Freq PRN Reason Stop Dose Admin Acetaminophen 650 mg 08/18/23 08:53 08/25/23 20:41 Acetaminophen 325 Mg Tablet PO 650 mg Q4-6H PRN Administration Pain Hydrocodone Bitart/Acetaminophen 1 tab 08/30/23 12:09 08/31/23 22:54 Hydrocodone/Acetaminophen (*Crx) 10-325 Mg Tablet PO 1 tab Q6H PRN Administration Pain Rated 7-10 Hydrocodone Bitart/Acetaminophen 1 tab 08/30/23 12:09 Hydrocodone/Acetaminophen (*Crx) 5-325 Mg Tablet PO Q6H PRN Pain Rated 4-6 Albuterol 2 puff 08/17/23 19:39 08/30/23 19:57 Albuterol Sulfate (*Sp) Aerosol 1 Puff INHALATION 2 puff Q4-6H PRN Administration Shortness Of Breath Or Wheezing Amoxicillin/Clavulanate Potassium 1 tablet 08/29/23 21:00 09/01/23 09:06 Amoxicillin/Clavulanate K 875-125 Mg Tab PO 09/13/23 09:00 1 tablet Q12HR PARAS Administration Ascorbic Acid 500 mg 08/18/23 09:00 09/01/23 09:05 Ascorbic Acid 500 Mg Tablet PO 500 mg DAILY PARAS Administration Aspirin 81 mg 08/19/23 08:00 09/01/23 09:06 Aspirin 81 Mg Chewable Tablet PO 81 mg DAILY@0800 PARAS Administration Atorvastatin Calcium 40 mg 08/18/23 09:00 09/01/23 09:05 Atorvastatin 40 Mg Tablet PO 40 mg DAILY PARAS Administration Dextrose 12.5 gm 08/31/23 11:29 Dextrose 50% 25 Gm/50 Ml Syringe IV PUSH PRN PRN Hypoglycemia Protocol Dicyclomine HCl 20 mg 08/31/23 14:51 Dicyclomine Hcl 10 Mg Capsule PO QID PRN Abdominal Cramping Duloxetine HCl 40 mg 08/18/23 09:00 09/01/23 09:06 Duloxetine Hcl 20 Mg Capsule.Dr PO 40 mg DAILY PARAS Administration Enoxaparin Sodium 30 mg 08/23/23 09:00 09/01/23 09:06 Enoxaparin 30 Mg/0.3 Ml Syringe SUB-Q 30 mg DAILY PARAS Administration Folic Acid 1 mg 08/18/23 09:00 09/01/23 09:05 Folic Acid 1 Mg Tablet PO 1 mg DAILY PARAS Administration Gabapentin 300 mg 08/18/23 21:00 08/31/23 22:42 Gabapentin 300 Mg Capsule PO 300 mg PARAS Administ
[2023-09-01 14:00] VITALS: BP 108/61; PULSE 116; RESP 20; TEMP 37; O2SAT 100
--- NOTE | 2023-09-01 15:15 | PM.IMPN ---
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 -presented this admission (08/12) with c/o abdominal pain and was found to have EC fistula. IR drain was placed and has since been removed on 08/27. She was treated with IV antibiotics (meropenem), since transitioned to Augmentin. -no leukocytosis, afebrile -monitor clinically for leukocytosis, fever after IR drain removal -Per surgery, may be okay to discharge back to her facility on Saturday (from their standpoint) should she continue to do well -p.r.n. [place] for pain -added Bentyl for abdominal cramping and high-output ileostomy (2) ITALO (acute kidney injury): Code(s): N17.9 - Acute kidney failure, unspecified Status: Acute Assessment and Plan: -monitor kidney function (3) Hydronephrosis: Code(s): N13.30 - Unspecified hydronephrosis Status: Acute Assessment and Plan: Hydronephrosis seen on imaging at admission -urology was consulted -suspected hydronephrosis related to retroperitoneal inflammation secondary to large upper abdominal wall abscess -poor candidate for a stent -monitor clinically -creatinine continues to increase she may need repeat CT sooner -recommend CT repeat in 1 month (4) Paranoid schizophrenia: Code(s): F20.0 - Paranoid schizophrenia Status: Acute Assessment and Plan: Currently receiving Cymbalta, risperidone, Lamictal. Home Invega is on hold as it is non-formulary. -has p.r.n. Ativan, hydroxyzine (5) Electrolyte abnormality: Code(s): E87.8 - Other disorders of electrolyte and fluid balance, not elsewhere classified Status: Acute Assessment and Plan: Hyperkalemia, hyponatremia, hypoglycemia -concern for possible adrenal insufficiency -random cortisol ordered -patient was started on Solu-Cortef is 40 mg IV push q.6 -cosyntropin test ordered for the morning (6) Anemia: Code(s): D64.9 - Anemia, unspecified Status: Acute Assessment and Plan: Hemoglobin 9.7 g/dL -no obvious bleeding -transfuse hemoglobin less than 7 g/dl -1 unit of pRBC given on 08/22/23 -TIBC, Fe, B12, folate ordered and pending Plan Assuming care on September 01, 2023 Hemoglobin stable. Pending cosyntropin test, F/E/N: saline lock IV, replace lytes as needed, regular diet with Ensure and low potassium DVT prophylaxis: Lovenox Lines: Peripheral IV Code Status: Full code Dispo: Back to [facility] Note to the patient: The Century Cures Act makes medical notes like these available to patients in the interest of transparency. Please be advised this is a medical document. It is intended for [id number] communication. It is written in medical language and may contain unfamiliar abbreviations or verbiage. Components may appear blunt or direct. Medical documents are intended to carry relevant information, facts as evident, and the clinical opinion of the practitioner at the time of the encounter. This note was generated by a speech recognition system and may contain inherent errors or omissions not intended by the user. Grammatical errors, random word insertions, deletions, pronoun errors and incomplete sentences are occasional consequences of this technology due to software limitations. Not all errors are caught or corrected. If there are questions or concerns about the content of this note or information contained within the body of this dictation they should be addressed directly with author for clarification. The file time of this note does not necessarily represent the time the patient was seen. Subjective Date/time seen: 09/01/23 15:15 Interval history: Patient seen at bedside. Awaken from sleep. Shakes her head no to indicate she has no complaints
[2023-09-01 16:39] LABS: Glucose Point of Care 125 mg/dl (65-105)
[2023-09-01] MEDS: MELATONIN 3 MG TABLET PO (20:29)
[2023-09-01] MEDS: GABAPENTIN 300 MG CAPSULE PO (20:29)
[2023-09-01] MEDS: hydrOXYzine HCL 25 MG TABLET PO (20:30)
[2023-09-01] MEDS: SIMETHICONE 80 MG TAB.CHEW PO (20:30)
[2023-09-01] MEDS: HYDROcodone/acetaminophen (*CRX) 10-325 MG TABLET 1 TAB PO (20:30)
[2023-09-01 20:45] VITALS: PULSE 82; RESP 18
[2023-09-01 21:56] VITALS: BP 98/60; PULSE 104; RESP 20; TEMP 36.8; O2SAT 96
[2023-09-02] MEDS: HYDROcodone/acetaminophen (*CRX) 10-325 MG TABLET 1 TAB PO ×3 (03:03→16:31)
[2023-09-02] MEDS: LORazepam (*CRX) 0.5 MG TABLET PO ×4 (03:03→22:37)
[2023-09-02 05:58] VITALS: BP 124/60; PULSE 80; RESP 16; TEMP 36.3; O2SAT 100
[2023-09-02 06:16] LABS: Basophils Percent Auto 0.3 % (0.2-1.2); Hematocrit 32.6 % (37.0-47.0); Hemoglobin 9.7 g/dL (12.0-15.0); Immature Granulocyte Absolute 0.12 K/mm3 (0.00-0.031); Immature Granulocyte Percent A 0.9 % (0-0.5); Lymphocytes Absolute Auto 1.16 K/mm3 (0.9-3.2); Mean Corpuscular HGB Conc 29.8 g/dl (32-36); Mean Corpuscular Hemoglobin 27.1 pg (26-34); Mean Corpuscular Volume 91.1 fl (80-100); Mean Platelet Volume 10.4 fl (7.4-10.4); Monocytes Absolute Auto 0.7 K/mm3 (0.1-0.6); Monocytes Percent Auto 5.6 % (2.6-8.5); Neutrophils Absolute Auto 10.9 K/mm3 (1.3-6.7); Neutrophils Percent Auto 84.2 % (45.5-73.1); Platelet Count Result 327 k/mm3 (150-375); Red Blood Count 3.58 M/mm3 (4.2-5.4); Red Cell Distribution Width 16.1 % (11.5-14.5); White Blood Count 12.9 K/mm3 (4.5-10.0)
[2023-09-02 06:31] LABS: Alanine Aminotransferase 44 U/L (6-35); Albumin Level 3.5 g/dL (3.5-5.1); Alkaline Phosphatase 81 U/L (38-126); Anion Gap 5 mmol/L (4-12); Aspartate Amino Transferase 31 U/L (14-36); Bilirubin,Total 0.5 mg/dL (0.2-1.3); Blood Urea Nitrogen 43 mg/dL (7-17); Calcium 9.2 mg/dL (8.4-10.2); Carbon Dioxide 25 mmol/L (22-30); Chloride 111 mmol/L (98-107); Estimated CRCL calculation 29 ml/min; Estimated Glomerular Filt Rate 41; Glucose 133 mg/dL (65-110); Potassium 5.2 mmol/L (3.4-5.0); Sodium 141 mmol/L (137-145)
[2023-09-02 07:01] LABS: Anisocytosis 1+; Hypochromasia 1+; Platelet Estimate Adequate (Adequate); Schistocytes None Seen
[2023-09-02] MEDS: FLUTICASONE/SALMETEROL 45-21 MCG INHALER 1 PUFF 2 PUFF INHALATION ×2 (07:38→19:50)
[2023-09-02 07:48] LABS: Glucose Point of Care 121 mg/dl (65-105)
[2023-09-02] MEDS: risperiDONE 0.5 MG TABLET PO (08:17)
[2023-09-02] MEDS: ASPIRIN 81 MG CHEWABLE TABLET PO (08:17)
[2023-09-02] MEDS: LEVOTHYROXINE SODIUM 50 MCG TABLET PO (08:17)
[2023-09-02] MEDS: FOLIC ACID 1 MG TABLET PO (08:17)
[2023-09-02] MEDS: ASCORBIC ACID 500 MG TABLET PO (08:17)
[2023-09-02] MEDS: MULTIVITAMINS THERAPEUTIC TAB (*BKC) 1 TABLET PO (08:17)
[2023-09-02] MEDS: DULoxetine HCL 20 MG CAPSULE.DR 40 MG PO (08:18)
[2023-09-02] MEDS: ATORVASTATIN 40 MG TABLET PO (08:18)
[2023-09-02] MEDS: PANTOPRAZOLE 40 MG TABLET PO (08:18)
[2023-09-02] MEDS: THIAMINE HCL 100 MG TABLET PO (08:18)
[2023-09-02] MEDS: lamoTRIgine 100 MG TABLET PO ×2 (08:18→21:00)
[2023-09-02] MEDS: AMOXICILLIN/CLAVULANATE K 875-125 MG TAB 1 TABLET PO ×2 (08:18→21:00)
[2023-09-02] MEDS: ENOXAPARIN 30 MG/0.3 ML SYRINGE SUB-Q (08:20)
[2023-09-02] MEDS: hydrOXYzine HCL 25 MG TABLET PO ×2 (08:25→21:16)
--- NOTE | 2023-09-02 11:05 | PM.IMPN ---
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 -presented this admission (08/12) with c/o abdominal pain and was found to have EC fistula. IR drain was placed and has since been removed on 08/27. She was treated with IV antibiotics (meropenem), since transitioned to Augmentin. -monitor clinically for leukocytosis, fever after IR drain removal -Per surgery, may be okay to discharge back to her facility on Saturday (from their standpoint) should she continue to do well -p.r.n. [place] for pain -added Bentyl for abdominal cramping and high-output ileostomy Leukocytosis today on 09/01. Will continue to monitor. Check procalcitonin the morning.Patient otherwise asymptomatic. (2) ITALO (acute kidney injury): Code(s): N17.9 - Acute kidney failure, unspecified Status: Acute Assessment and Plan: -monitor kidney function (3) Hydronephrosis: Code(s): N13.30 - Unspecified hydronephrosis Status: Acute Assessment and Plan: Hydronephrosis seen on imaging at admission -urology was consulted -suspected hydronephrosis related to retroperitoneal inflammation secondary to large upper abdominal wall abscess -poor candidate for a stent -monitor clinically -creatinine continues to increase she may need repeat CT sooner -recommend CT repeat in 1 month (4) Paranoid schizophrenia: Code(s): F20.0 - Paranoid schizophrenia Status: Acute Assessment and Plan: Currently receiving Cymbalta, risperidone, Lamictal. Home Invega is on hold as it is non-formulary. -has p.r.n. Ativan, hydroxyzine (5) Electrolyte abnormality: Code(s): E87.8 - Other disorders of electrolyte and fluid balance, not elsewhere classified Status: Acute Assessment and Plan: Hyperkalemia, hyponatremia, hypoglycemia -concern for possible adrenal insufficiency -random cortisol ordered -patient was started on Solu-Cortef is 40 mg IV push q.6 -cosyntropin test ordered for the morning Potassium 5.2 in 617. Ordered Lokelma 5 mg p.o. x1. The patient refusing. Patient educated. (6) Anemia: Code(s): D64.9 - Anemia, unspecified Status: Acute Assessment and Plan: Hemoglobin 9.7 g/dL -no obvious bleeding -transfuse hemoglobin less than 7 g/dl -1 unit of pRBC given on 08/22/23 -TIBC, Fe, B12, folate ordered and pending Plan Assuming care on September 01, 2023 Hemoglobin stable. Pending cosyntropin test, F/E/N: saline lock IV, replace lytes as needed, regular diet with Ensure and low potassium DVT prophylaxis: Lovenox Lines: Peripheral IV Code Status: Full code Dispo: Back to [facility] Note to the patient: The Century Cures Act makes medical notes like these available to patients in the interest of transparency. Please be advised this is a medical document. It is intended for [id number] communication. It is written in medical language and may contain unfamiliar abbreviations or verbiage. Components may appear blunt or direct. Medical documents are intended to carry relevant information, facts as evident, and the clinical opinion of the practitioner at the time of the encounter. This note was generated by a speech recognition system and may contain inherent errors or omissions not intended by the user. Grammatical errors, random word insertions, deletions, pronoun errors and incomplete sentences are occasional consequences of this technology due to software limitations. Not all errors are caught or corrected. If there are questions or concerns about the content of this note or information contained within the body of this dictation they should be addressed directly with author for clarification. The file time of this note does not necessarily represent the noman
[2023-09-02 11:35] LABS: Glucose Point of Care 97 mg/dl (65-105)
--- NOTE | 2023-09-02 12:44 | PM.PNGS ---
Progress Note: A&P Assessment and Plan (1) Intra-abdominal abscess: Code(s): K65.1 - Peritoneal abscess Status: Acute Assessment and Plan: Continue oral antibiotics. Ileostomy functioning well. She is tolerating a diet. WBC count went up slightly to 12,900 today. Clinically, she continues to improve. Will repeat labs again tomorrow. If she remains stable, then she can be discharged back to the half-way. 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 Hopefully it will close. Right now there is no clinical indications to perform laparotomy and takedown of the fistula unless she has returned abscess or has output of enteric contents through the old drain site. See plan above. Plan I have discussed the patient's case and plan of care with Dr. Kim. Subjective Subjective Date/Time Seen: 09/02/23 12:44 Patient reports: no new complaints, tolerating a regular diet and afebrile Interval history: Chart reviewed since last seen. No new complaints today. Denies abdominal pain, nausea, or bloating. She is still tolerating a diet well. She reports eating well through the weekend. Ileostomy functioning well. She is afebrile but white blood cell count did go up slightly today to 12,900. Exam Const: General: comfortable and no acute distress Orientation/consciousness: patient oriented x3 GI: Inspection: non-distended and other (ileostomy patent and functioning) GI Palp: Yes Soft to palpation, No Tenderness to palpation present (GI) and No Guarding due to palpation present (GI) Auscultation: normal bowel sounds Other: Drain site healing well without erythema or drainage Objective Data Vital Signs Vital Signs: Vital Signs - 24 hr 09/01/23 14:00 09/01/23 20:45 09/01/23 21:56 Temperature 98.6 F 98.3 F Pulse Rate 116 H 82 104 H Respiratory Rate 20 18 20 Blood Pressure 108/61 98/60 L Pulse Oximetry 100 96 Oxygen Delivery 09/02/23 05:58 09/02/23 08:00 Temperature 97.3 F L Pulse Rate 80 Respiratory Rate 16 Blood Pressure 124/60 Pulse Oximetry 100 Oxygen Delivery Room Air Intake/Output Intake/Output: Intake & Output 08/30/23 08/31/23 09/01/2324 23:59 23:59 23:59 23:59 Intake Total 1520 1646 2885 360 Output Total 2550 3593 1350 Balance -1030 -197 1535 360 Meds/Results Medications: Active Medications Generic Name Dose Route Start Last Admin Trade Name Freq PRN Reason Stop Dose Admin Acetaminophen 650 mg 08/18/23 08:53 08/25/23 20:41 Acetaminophen 325 Mg Tablet PO 650 mg Q4-6H PRN Administration Pain Hydrocodone Bitart/Acetaminophen 1 tab 08/30/23 12:09 09/02/23 10:30 Hydrocodone/Acetaminophen (*Crx) 10-325 Mg Tablet PO 1 tab Q6H PRN Administration Pain Rated 7-10 Hydrocodone Bitart/Acetaminophen 1 tab 08/30/23 12:09 Hydrocodone/Acetaminophen (*Crx) 5-325 Mg Tablet PO Q6H PRN Pain Rated 4-6 Albuterol 2 puff 08/17/23 19:39 08/30/23 19:57 Albuterol Sulfate (*Sp) Aerosol 1 Puff INHALATION 2 puff Q4-6H PRN Administration Shortness Of Breath Or Wheezing Amoxicillin/Clavulanate Potassium 1 tablet 08/29/23 21:00 09/02/23 08:18 Amoxicillin/Clavulanate K 875-125 Mg Tab PO 09/13/23 09:00 1 tablet Q12HR PARAS Administration Ascorbic Acid 500 mg 08/18/23 09:00 09/02/23 08:17 Ascorbic Acid 500 Mg Tablet PO 500 mg DAILY PARAS Administration Aspirin 81 mg 08/19/23 08:00 09/02/23 08:17 Aspirin 81 Mg Chewable Tablet PO 81 mg DAILY@0800 PARAS Administration Atorvastatin Calcium 40 mg 08/18/23 09:00 09/02/23 08:18 Atorvastatin 40 Mg Tablet PO 40 mg DAILY PARAS Administration Dextrose 12.5 gm 08/31/23 11:29 Dextrose 50% 25 Gm/50 Ml Syringe IV PUSH PRN PRN Hypoglycemia Protocol Dicyclomine HCl 20 mg 08/31/23 14:51 Dicyclomine Hcl 10 Mg Capsul
--- NOTE | 2023-09-02 13:13 | PCNFU ---
Nutrition Follow-Up Complete: Inadequate oral intake related to NPO/CL diet as evidenced by patient not having met estimated nutrition needs x 3 days. Resolved. Pt has been o a diet new Goal: PO intake 75% or greater Pt current nutrition is Regular, Ensure Enlive BID, nutrition ice cream BID. Nutrition recommendation: continue with current plan of care. Last recorded weight is 46.6 kg. Bowel Motility: +BM 08/31 Labs Reviewed: Hgb:9.7, HCT:32.6, K:52, BUN:43, Cr:1.3 Meds Noted: folic acid, thiamin, zofran, protonix Skin: WNL Additional Notes: Pt continues on a regular diet, intake good at 50-100%, supplements in place. Encourage good po intake. Monitor diet advancement, weight, labs, appetite. Follow up in 7 days.
[2023-09-02 14:00] VITALS: BP 126/71; PULSE 134; RESP 24; TEMP 37.2; O2SAT 99
[2023-09-02 16:12] LABS: Glucose Point of Care 111 mg/dl (65-105)
[2023-09-02 19:54] VITALS: PULSE 76; RESP 18
[2023-09-02] MEDS: ALBUTEROL SULFATE (*SP) AEROSOL 1 PUFF 2 PUFF INHALATION (19:54)
[2023-09-02] MEDS: MELATONIN 3 MG TABLET PO (21:00)
[2023-09-02] MEDS: GABAPENTIN 300 MG CAPSULE PO (21:00)
[2023-09-02 21:53] VITALS: BP 119/62; PULSE 113; RESP 18; TEMP 36.8; O2SAT 100
[2023-09-03 06:00] VITALS: BP 103/61; PULSE 88; RESP 18; TEMP 36.8; O2SAT 100
[2023-09-03] MEDS: LEVOTHYROXINE SODIUM 50 MCG TABLET PO (06:20)
[2023-09-03 06:32] LABS: Basophils Absolute Auto 0.1 K/mm3 (0.0-0.1); Basophils Percent Auto 0.5 % (0.2-1.2); Eosinophils Percent Auto 0.2 % (0-4.4); Hematocrit 30.4 % (37.0-47.0); Immature Granulocyte Absolute 0.16 K/mm3 (0.00-0.031); Immature Granulocyte Percent A 1.7 % (0-0.5); Lymphocytes Absolute Auto 1.44 K/mm3 (0.9-3.2); Lymphocytes Percent Auto 14.9 % (18.3-44.2); Mean Corpuscular HGB Conc 29.6 g/dl (32-36); Mean Corpuscular Hemoglobin 27.1 pg (26-34); Mean Corpuscular Volume 91.6 fl (80-100); Mean Platelet Volume 10.4 fl (7.4-10.4); Monocytes Absolute Auto 0.7 K/mm3 (0.1-0.6); Monocytes Percent Auto 7.6 % (2.6-8.5); Neutrophils Absolute Auto 7.2 K/mm3 (1.3-6.7); Neutrophils Percent Auto 75.1 % (45.5-73.1); Platelet Count Result 291 k/mm3 (150-375); Red Blood Count 3.32 M/mm3 (4.2-5.4); Red Cell Distribution Width 16.2 % (11.5-14.5); White Blood Count 9.6 K/mm3 (4.5-10.0)
[2023-09-03 06:50] LABS: Glucose Point of Care 102 mg/dl (65-105)
[2023-09-03 06:56] LABS: Alanine Aminotransferase 36 U/L (6-35); Albumin Level 3.4 g/dL (3.5-5.1); Alkaline Phosphatase 79 U/L (38-126); Anion Gap 8 mmol/L (4-12); Aspartate Amino Transferase 26 U/L (14-36); Bilirubin,Total 0.4 mg/dL (0.2-1.3); Blood Urea Nitrogen 46 mg/dL (7-17); Calcium 9.1 mg/dL (8.4-10.2); Carbon Dioxide 19 mmol/L (22-30); Chloride 111 mmol/L (98-107); Estimated CRCL calculation 25 ml/min; Estimated Glomerular Filt Rate 35; Glucose 98 mg/dL (65-110); Potassium 4.8 mmol/L (3.4-5.0); Sodium 138 mmol/L (137-145)
[2023-09-03 07:25] LABS: Procalcitonin 0.2 ng/mL
[2023-09-03 07:38] LABS: Platelet Estimate Adequate (Adequate)
[2023-09-03 07:39] LABS: Anisocytosis 1+; Hypochromasia 1+; Schistocytes None Seen
[2023-09-03 08:07] LABS: Glucose Point of Care 91 mg/dl (65-105)
[2023-09-03 08:21] VITALS: O2SAT 99
[2023-09-03] MEDS: FLUTICASONE/SALMETEROL 45-21 MCG INHALER 1 PUFF 2 PUFF INHALATION (08:21)
[2023-09-03] MEDS: ASPIRIN 81 MG CHEWABLE TABLET PO (09:24)
[2023-09-03] MEDS: AMOXICILLIN/CLAVULANATE K 875-125 MG TAB 1 TABLET PO (09:24)
[2023-09-03] MEDS: lamoTRIgine 100 MG TABLET PO (09:24)
[2023-09-03] MEDS: ATORVASTATIN 40 MG TABLET PO (09:24)
[2023-09-03] MEDS: risperiDONE 0.5 MG TABLET PO (09:24)
[2023-09-03] MEDS: DULoxetine HCL 20 MG CAPSULE.DR 40 MG PO (09:24)
[2023-09-03] MEDS: MULTIVITAMINS THERAPEUTIC TAB (*BKC) 1 TABLET PO (09:24)
[2023-09-03] MEDS: ASCORBIC ACID 500 MG TABLET PO (09:24)
[2023-09-03] MEDS: THIAMINE HCL 100 MG TABLET PO (09:25)
[2023-09-03] MEDS: PANTOPRAZOLE 40 MG TABLET PO (09:25)
[2023-09-03] MEDS: FOLIC ACID 1 MG TABLET PO (09:25)
[2023-09-03] MEDS: ENOXAPARIN 30 MG/0.3 ML SYRINGE SUB-Q (09:29)
[2023-09-03] MEDS: hydrOXYzine HCL 25 MG TABLET PO (09:37)
[2023-09-03] MEDS: LORazepam (*CRX) 0.5 MG TABLET PO (09:37)
--- NOTE | 2023-09-03 09:53 | PM.DS ---
DS: Admitting Diagnosis Discharge Date September 03, 2023 Admitting Diagnosis Intra-abdominal abscess DS: Discharge Diagnosis Discharge Diagnosis (1) 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 - Fistula of intestine Status: Acute (2) Hydronephrosis: Code(s): N13.30 - Unspecified hydronephrosis Status: Acute (3) Sepsis: Qualifiers: Sepsis acute organ dysfunction status: unspecified Sepsis type: sepsis due to unspecified organism Qualified Code(s): A41.9 - Sepsis, unspecified organism Code(s): A41.9 - Sepsis, unspecified organism Status: Acute (4) Intra-abdominal abscess: Code(s): K65.1 - Peritoneal abscess Status: Acute (5) Paranoid schizophrenia: Code(s): F20.0 - Paranoid schizophrenia Status: Acute (6) Electrolyte abnormality: Code(s): E87.8 - Other disorders of electrolyte and fluid balance, not elsewhere classified Status: Acute DS: Summary Hospital Course Hospital Course: A pleasant 62-year-old female with a past medical history of paranoid schizophrenia, anxiety,, chronic hyperkalemia hypothyroidism, GERD, essential hypertension, COPD and complex surgical history with necrotic bowel, bowel resection with open abdomen with delayed closure with ileostomy placement and subsequent necrotic abdominal wound hospitalized March 09, 2023 through 04/04/2023 who presented back to the ER from [facility] with abdominal pain.?The patient initially reported that she had been having about 1 week of abdominal pain and decreased oral intake.? But after further questioning she reports that she has been having escalating abdominal pain for about a month but she did want to bother any body.? She was also having accompanying nausea.?Over the last week [employer] she has developed decreased ostomy output and only had about 10 mL of output all day prior to coming to the ER.? She had had several large emesis at the senior care today.? She received Zofran in route to the hospital.? About 2 hours after arrival hospital she had another large amount of emesis.? She denied any fevers or chills.? She she has had decreased oral intake will last couple of weeks and feels as if she has lost weight.? CT scan with contrast performed in the ER demonstrated small-bowel obstruction with transition point in the right lower abdominal quadrant adjacent to an intra-abdominal abscess that measured 6.5 x 4.8 x 10.5 with associated fistulous connection to the adjacent dilated small bowel with abscess extending through the lateral abdominal herniation and involving the right ilial psoas muscle and right abdominal sidewall.? She reported to the ER staff that she was having some burning with urination for about a week but is associated with decreased urine output not increased frequency or urgency.? UA in the ER was unremarkable.? However intra-abdominal abscess is causing moderate obstructive uropathy on the right.? BMP in the ER did demonstrate acute kidney injury and hyperkalemia.? The patient had been evaluated for hyperkalemia in the ER in May and was discharged back to the senior care on [facility].? She is not on any potassium supplements.? History present illness comes from review of prior medical records, ER report and nursing report. Admitted on 08/14/2023 IR drain placed and since removed on 08/27. Leukocytosis resolved. Initially treated with meropenem and transition to Augmentin, culture demonstrating E coli sensitive to Augmentin. Augmentin prescribed for another 7 days. Therefore, she is discharged in stable condition to her usual SNF. Serum creatinine has stabilized. Advised to follow-up with Nephrology. Urology consultation completed for hydronephrosis likely related to retroperitoneal inflammation secondary to abscess. Patient is a poor candidate for stent. Follow-up with urology for repeat CT scan. Status post 1 unit PRBC on 08/22/2023. Hemoglobin otherwise stable. Cosyntropin t
[2023-09-03 11:28] LABS: Glucose Point of Care 110 mg/dl (65-105)
[2023-09-03 14:57] VITALS: BP 114/76; PULSE 72; RESP 18; TEMP 36.7; O2SAT 90
[2023-09-03 16:35] LABS: Glucose Point of Care 142 mg/dl (65-105)
[2023-09-06 12:29] LABS: Renin 0.42 ng/mL/h (0.25-5.82)
== END 2023-09-03 16:50 | disposition home or self-care (01) | DRG 721 ==
LOC: ANHED 19:41 → ANHIMU 08-14 05:15 → ANH3MEDSUR 08-22 06:59 → ANHIMU 09-11 06:31 → ANH3MEDSUR 09-11 06:36
PROVIDERS: Emergency Medicine; Internal Medicine; Nurse Practitioner Acute Care; Surgery; Admitting Provider Internal Medicine; Emergency Provider Student in an Organized Health Care Education/Training Program; PCP Internal Medicine; Visit Provider General Practice
DX: T81.43XA Infection following a procedure, organ and space surgical site, initial encounter (principal); T81.44XA Sepsis following a procedure, initial encounter; R65.20 Severe sepsis without septic shock; K65.1 Peritoneal abscess; K91.31 Postprocedural partial intestinal obstruction; K63.2 Fistula of intestine; I42.9 Cardiomyopathy, unspecified; N13.30 Unspecified hydronephrosis; N17.9 Acute kidney failure, unspecified; K21.9 Gastro-esophageal reflux disease without esophagitis; E87.5 Hyperkalemia; R64 Cachexia; Z68.1 Body mass index [BMI] 19.9 or less, adult; B96.20 Unspecified Escherichia coli [E. coli] as the cause of diseases classified elsewhere; D64.9 Anemia, unspecified; N13.8 Other obstructive and reflux uropathy; R33.9 Retention of urine, unspecified; D62 Acute posthemorrhagic anemia; F41.9 Anxiety disorder, unspecified; Z16.12 Extended spectrum beta lactamase (ESBL) resistance; E88.09 Other disorders of plasma-protein metabolism, not elsewhere classified; E27.40 Unspecified adrenocortical insufficiency; N18.32 Chronic kidney disease, stage 3b; F32.A Depression, unspecified; I12.9 Hypertensive chronic kidney disease with stage 1 through stage 4 chronic kidney disease, or unspecified chronic kidney disease; J44.9 Chronic obstructive pulmonary disease, unspecified; R26.89 Other abnormalities of gait and mobility; F20.0 Paranoid schizophrenia; E03.9 Hypothyroidism, unspecified; Z20.822 Contact with and (suspected) exposure to COVID-19; F17.210 Nicotine dependence, cigarettes, uncomplicated; Z93.2 Ileostomy status; Z90.49 Acquired absence of other specified parts of digestive tract; E87.1 Hypo-osmolality and hyponatremia; E16.2 Hypoglycemia, unspecified
CPT/HCPCS: 36415; 36430; 71046; 74176; 74177; 75989; 80048; 80053; 80069; 80076; 80202; 81001; 82088; 82533; 82565; 82607; 82746; 82948; 83036; 83540; 83550; 83605; 83690; 83735; 83880; 84100; 84132; 84145; 84244; 84443; 84484; 85014; 85018; 85025; 85027; 85610; 85730; 86140; 86850; 86880; 86900; 86901; 86902; 86922; 87040; 87070; 87075; 87077; 87186; 87205; 87637; 87641; 93005; 94640; 96361; 96365; 96366; 96367; 96375; 96376; 97110; 97162; 97165; 97530; 97535; 99285; A9270; C1729; C1769; C9113; J0650; J0692; J0834; J1170; J1650; J1720; J1815; J1836; J2060; J2185; J2405; J2543; J3370; J3411; J3475; J3480; J7030; J7040; J7042; J7050; J7120; P9016; Q9967

== ENCOUNTER 2023-09-06 15:57 | Emergency (ER) | payer OTHER, SELFPAY ==
--- NOTE | ~2023-09-06 | XR_ITS ---
XR elbow LT min 3V Ordering provider: Neptali Sotomayor MD History: . fall/ deformity LIMITED ROM . Comparison: February 12, 2023 FINDINGS: BONES: Arthrodesis of the elbow joint is noted with postoperative changes. No definite recent fractur e. SOFT TISSUES: Soft tissue swelling is seen medially. IMPRESSION: Status post arthrodesis of the left elbow. No definite acute fracture. If still suspicious follow-up advised. Reviewed, dictated and finalized at location A.
[2023-09-06 16:01] VITALS: BP 104/64; PULSE 102; RESP 16; TEMP 36.4; O2SAT 100
--- NOTE | 2023-09-06 16:51 | ED.UPPEXIN ---
HPI - Extremity Injury (Upper) General Chief Complaint: Extremity Injury, Upper Stated Complaint: L elbow dislocated Time Seen by Provider: 09/06/23 16:04 Source: patient Mode of arrival: EMS Limitations: no limitations History of Present Illness HPI narrative: 62-year-old with a history of paranoid schizophrenia multiple abdominal surgeries status post fusion of for left elbow several years ago here with a complaint of fall on her left elbow. She has no other injuries.pt states she had surgery of the left elbow several years ago in [place] and since then it has been deformed. MD complaint: injury to: left Handedness: right Place: home Severity: mild Exacerbating factors: none Context: fall Associated symptoms: denies other symptoms Related Data Home Medications Medication Instructions Recorded Confirmed acetaminophen 325 mg tablet 650 mg PO Q4-6H PRN Pain 03/09/23 08/14/23 albuterol sulfate 90 mcg/actuation 2 puff inhalation Q4-6H PRN 03/09/23 08/14/23 aerosol inhaler Shortness Of Breath Or Wheezing gabapentin 300 mg capsule 300 mg PO HS 03/09/23 08/14/23 lamotrigine 100 mg tablet 100 mg PO BID 03/09/23 08/14/23 levothyroxine 50 mcg tablet 50 mcg PO DAILY 03/09/23 08/14/23 omeprazole 10 mg capsule,delayed 10 mg PO DAILY 03/09/23 08/14/23 release paliperidone palmitate 156 mg/mL 156 mg IM MONTHLY 03/09/23 08/16/23 intramuscular syringe (Invega Sustenna) Adult One Daily Multivitamin 1 tablet PO DAILY 08/14/23 08/14/23 ascorbic acid (vitamin C) 500 mg 500 mg PO DAILY 08/14/23 08/14/23 tablet duloxetine 20 mg capsule,delayed 40 mg PO DAILY 08/14/23 08/14/23 release (Cymbalta) fluticasone 100 mcg-salmeterol 50 2 ea inhalation BID 08/14/23 08/14/23 mcg/dose blistr powdr for inhalation (Advair Diskus) folic acid 1 mg tablet 1 mg PO DAILY 08/14/23 08/14/23 hydroxyzine HCl 25 mg tablet 25 mg PO QID anxiety or itching 08/14/23 08/14/23 loperamide 2 mg capsule 2 mg PO TID PRN Diarrhea 08/14/23 08/14/23 melatonin 3 mg tablet 3 mg PO HS 08/14/23 08/14/23 ondansetron 4 mg disintegrating 4 mg PO Q6H PRN Nausea 08/14/23 08/14/23 tablet polyethylene glycol 3350 17 17 g PO DAILY PRN Constipation 08/14/23 08/14/23 gram/dose oral powder (Miralax) risperidone 0.5 mg tablet 0.5 mg PO DAILY 08/14/23 08/14/23 sodium zirconium cyclosilicate 10 10 g PO DAILY 08/14/23 08/14/23 gram oral powder packet (Lokelma) thiamine HCl (vitamin B1) 100 mg 100 mg PO DAILY 08/14/23 08/14/23 tablet tolnaftate 1 % topical powder 1 applic topical Q12HR PRN Rash 08/14/23 08/14/23 Allergies Allergy/AdvReac Type Severity Reaction Status Date / Time morphine Allergy Unknown Verified 03/09/23 08:51 Sulfa (Sulfonamide Allergy Unknown Verified 03/09/23 08:51 Antibiotics) Review of Systems Review of Systems: All systems reviewed & are unremarkable except as noted in HPI and below Constitutional: Constitutional: Reports no additional constitutional complaints Eyes: Eyes: Reports no additional eye complaints ENT: Reports system reviewed and no additional complaints, except as documented Cardiovascular: Cardiovascular: Reports no additional cardiovascular complaints Respiratory: Respiratory: Reports no additional respiratory complaints Gastrointestinal: Gastrointestinal: Reports no additional gastrointestinal complaints Musculoskeletal: Musculoskeletal: Reports as per HPI Neurologic: Reports system reviewed and no additional complaints, except as documented [facility] Past Medical History Medical History Borderline personality disorder Chronic back pain COPD (chronic obstructive pulmonary disease) ERIKA (generalized anxiety disorder) History of MRSA infection With MRSA screen 08/13/2023 being negative HLD (hyperlipidemia) Hypothyroid IBS (irritable bowel syndrome) MDD (major depressive disorder) Paranoid schizophrenia Surgical History Surgical History (Reviewed 0
== END 2023-09-06 18:49 ==
PROVIDERS: Emergency Provider Family Medicine; PCP Internal Medicine
DX: S50.02XA Contusion of left elbow, initial encounter (principal); J44.9 Chronic obstructive pulmonary disease, unspecified; E03.9 Hypothyroidism, unspecified; E78.5 Hyperlipidemia, unspecified; K58.9 Irritable bowel syndrome, unspecified; F32.9 Major depressive disorder, single episode, unspecified; F41.1 Generalized anxiety disorder; F60.3 Borderline personality disorder; F20.0 Paranoid schizophrenia; Z86.14 Personal history of Methicillin resistant Staphylococcus aureus infection; Z90.49 Acquired absence of other specified parts of digestive tract; F17.210 Nicotine dependence, cigarettes, uncomplicated; Z79.899 Other long term (current) drug therapy; Z79.82 Long term (current) use of aspirin; W19.XXXA Unspecified fall, initial encounter
CPT/HCPCS: 73080; 99283

== ENCOUNTER 2023-09-25 19:04 | Inpatient (IN) | payer OTHER, SELFPAY ==
--- NOTE | ~2023-09-25 | US_ITS ---
EXAMINATION: US guide abscess drainage DATE: 09/26/2023 15:19 INDICATION: Left upper quadrant abscess TECHNIQUE: The procedure and its risks and benefits were discussed with the patient. Potential risks discussed included bleeding and infection. The skin was prepped and draped in sterile fashion. 1% lid ocaine was used for local anesthesia. Under ultrasound guidance, a 5 Fr catheter with trochar was adv anced into the loculated fluid collection positioned between the anterior abdominal wall, spleen, sto mach and left kidney in the left upper quadrant. Fluid was uneventfully fluid collection was complete ly decompressed. The catheter was removed, and a dressing was applied. The fluid was sent to the lab for Gram stain and cultures. There were no immediate complications. COMPARISON: CT dated 09/25/2023. FINDINGS: Ultrasound images demonstrate the catheter within a small anechoic fluid collection in the left upper quadrant at the region of concern. The fluid collection measured approximately 4.0 x 1.8 cm. The flu id collection was completely decompressed at the conclusion of the procedure. IMPRESSION: 1. Successful ultrasound-guided aspiration to complete decompression of a small loculated fluid desire ection in the left upper quadrant yielding 8 mL of clear yellow fluid which was sent to the lab for G jerome stain and cultures. Reviewed, dictated and finalized at location A. IMPRESSION: 1. Successful ultrasound-guided aspiration to complete decompression of a smal l loculated fluid collection in the left upper quadrant yielding 8 mL of clear yellow fluid which was sent to the lab for Gram stain and cultures.
--- NOTE | ~2023-09-25 | CT_ITS ---
EXAMINATION: CT abdomen pelvis w con DATE: 09/25/2023 21:44 INDICATION: Left abdominal pain. TECHNIQUE: Computed tomography (CT) of the abdomen and pelvis was performed with 100 mL Omnipaque 350 intravenous contrast. Automated exposure control and iterative reconstruction technique were employe d. The dose-length product was 177.42 mGy-cm. COMPARISON: CT abdomen and pelvis 08/29/2023 FINDINGS: The visualized portions of the lung bases demonstrate mild atelectasis. There is bronchiect asis in right middle lobe. No pleural effusion. The heart size is normal. No pericardial effusion. Th e liver and spleen are normal. There are changes of cholecystectomy. The pancreas and adrenal glands are normal. There is mild atrophy of right kidney. There is severe hydronephrosis and proximal hydrou reter. There is a 4 mm stone right kidney. There is a 4 mm cyst in left kidney. There is an ostomy in right abdomen. There is an abscess in the right flank musculature measuring 2.0 x 0.9 cm containing fluid and gas. There is fat stranding in the right abdomen, consistent with phlegmon. There is a 1.6 x 1.4 x 3.7 cm abscess in left paracolic gutter. There is trace pelvic ascites. There are no patholog ically enlarged lymph nodes. There is mild lumbar spondylosis. IMPRESSION: 1. 2.0 x 0.9 cm abscess in the right flank musculature. 2. 1.6 x 1.4 x 3.7 cm abscess in the left paracolic gutter. 3. Persistent severe right hydronephrosis and proximal hydroureter. Mild right kidney atrophy. Reviewed, dictated and finalized at location E.
[2023-09-25 19:01] VITALS: BP 132/87; PULSE 110; RESP 17; TEMP 37.1; O2SAT 98
[2023-09-25 19:11] VITALS: BP 132/87; PULSE 105; RESP 14; O2SAT 98
[2023-09-25 19:34] LABS: Basophils Percent Auto 0.1 % (0.2-1.2); Eosinophils Absolute Auto 0.1 K/mm3 (0-0.3); Eosinophils Percent Auto 0.8 % (0-4.4); Hematocrit 32.1 % (37.0-47.0); Hemoglobin 10.4 g/dL (12.0-15.0); Immature Granulocyte Absolute 0.05 K/mm3 (0.00-0.031); Immature Granulocyte Percent A 0.7 % (0-0.5); Lymphocytes Percent Auto 21.2 % (18.3-44.2); Mean Corpuscular HGB Conc 32.4 g/dl (32-36); Mean Corpuscular Hemoglobin 27.6 pg (26-34); Mean Corpuscular Volume 85.1 fl (80-100); Mean Platelet Volume 10.3 fl (7.4-10.4); Monocytes Absolute Auto 0.8 K/mm3 (0.1-0.6); Monocytes Percent Auto 10.6 % (2.6-8.5); Neutrophils Absolute Auto 4.7 K/mm3 (1.3-6.7); Neutrophils Percent Auto 66.6 % (45.5-73.1); Platelet Count Result 273 k/mm3 (150-375); Red Blood Count 3.77 M/mm3 (4.2-5.4); Red Cell Distribution Width 15.2 % (11.5-14.5); White Blood Count 7.1 K/mm3 (4.5-10.0)
[2023-09-25 20:10] VITALS: BP 103/64; PULSE 90; RESP 14; O2SAT 100
[2023-09-25] MEDS: fentaNYL CITRATE INJ (*CRX) 100 MCG/2 ML VIAL 50 MCG IV PUSH (20:22)
[2023-09-25] MEDS: SODIUM CHLORIDE 0.9% IV 1,000 ML 999 ML IV CONT (20:22)
--- NOTE | 2023-09-25 20:27 | ED.GENADULT ---
HPI - General Adult General Chief complaint: Abdominal Pain Stated complaint: ABD PAIN/COLOSTOMY FILLED WITH RED LIQUID Time Seen by Provider: 09/25/23 19:12 History of Present Illness HPI narrative: Patient is a 62-year-old female who presents ER with red stool. Patient has a ileostomy bag. She began having red stools night. She believes it is related to the Zach-Aid she drink earlier today. She does however report that she has been having left-sided abdominal cramping for the last week. Denies fevers or chills or sweats. No vomiting. no aggravating or alleviating factors with abdominal cramping. Related Data Home Medications Medication Instructions Recorded Confirmed acetaminophen 325 mg tablet 650 mg PO Q4-6H PRN Pain 03/09/23 08/14/23 albuterol sulfate 90 mcg/actuation 2 puff inhalation Q4-6H PRN 03/09/23 08/14/23 aerosol inhaler Shortness Of Breath Or Wheezing gabapentin 300 mg capsule 300 mg PO HS 03/09/23 08/14/23 lamotrigine 100 mg tablet 100 mg PO BID 03/09/23 08/14/23 levothyroxine 50 mcg tablet 50 mcg PO DAILY 03/09/23 08/14/23 omeprazole 10 mg capsule,delayed 10 mg PO DAILY 03/09/23 08/14/23 release paliperidone palmitate 156 mg/mL 156 mg IM MONTHLY 03/09/23 08/16/23 intramuscular syringe (Invega Sustenna) Adult One Daily Multivitamin 1 tablet PO DAILY 08/14/23 08/14/23 ascorbic acid (vitamin C) 500 mg 500 mg PO DAILY 08/14/23 08/14/23 tablet duloxetine 20 mg capsule,delayed 40 mg PO DAILY 08/14/23 08/14/23 release (Cymbalta) fluticasone 100 mcg-salmeterol 50 2 ea inhalation BID 08/14/23 08/14/23 mcg/dose blistr powdr for inhalation (Advair Diskus) folic acid 1 mg tablet 1 mg PO DAILY 08/14/23 08/14/23 hydroxyzine HCl 25 mg tablet 25 mg PO QID anxiety or itching 08/14/23 08/14/23 loperamide 2 mg capsule 2 mg PO TID PRN Diarrhea 08/14/23 08/14/23 melatonin 3 mg tablet 3 mg PO HS 08/14/23 08/14/23 ondansetron 4 mg disintegrating 4 mg PO Q6H PRN Nausea 08/14/23 08/14/23 tablet polyethylene glycol 3350 17 17 g PO DAILY PRN Constipation 08/14/23 08/14/23 gram/dose oral powder (Miralax) risperidone 0.5 mg tablet 0.5 mg PO DAILY 08/14/23 08/14/23 sodium zirconium cyclosilicate 10 10 g PO DAILY 08/14/23 08/14/23 gram oral powder packet (Lokelma) thiamine HCl (vitamin B1) 100 mg 100 mg PO DAILY 08/14/23 08/14/23 tablet tolnaftate 1 % topical powder 1 applic topical Q12HR PRN Rash 08/14/23 08/14/23 Allergies Allergy/AdvReac Type Severity Reaction Status Date / Time morphine Allergy Unknown Verified 03/09/23 08:51 Sulfa (Sulfonamide Allergy Unknown Verified 03/09/23 08:51 Antibiotics) Review of Systems Review of Systems: All systems reviewed & are unremarkable except as noted in HPI and below Constitutional: Constitutional: Reports no additional constitutional complaints ENT: Reports system reviewed and no additional complaints, except as documented Cardiovascular: Cardiovascular: Reports no additional cardiovascular complaints Respiratory: Respiratory: Reports no additional respiratory complaints Gastrointestinal: Gastrointestinal: Reports abdominal pain, Denies constipation, Denies diarrhea, Denies nausea and Denies vomiting Genitourinary: Genitourinary: Reports no additional female genitourinary complaints PMFSH Past Medical History Medical History Borderline personality disorder Chronic back pain COPD (chronic obstructive pulmonary disease) ERIKA (generalized anxiety disorder) History of MRSA infection With MRSA screen 08/13/2023 being negative HLD (hyperlipidemia) Hypothyroid IBS (irritable bowel syndrome) MDD (major depressive disorder) Paranoid schizophrenia Surgical History Surgical History History of abdominal surgery no current documentation available, midline incision - likely laparotomy. Unclear if from choley. History of x2 History
[2023-09-25 20:30] VITALS: BP 107/72; PULSE 98; RESP 12; O2SAT 97
[2023-09-25 21:24] LABS: Alanine Aminotransferase 35 U/L (6-35); Albumin Level 3.9 g/dL (3.5-5.1); Alkaline Phosphatase 93 U/L (38-126); Anion Gap 10 mmol/L (4-12); Aspartate Amino Transferase 35 U/L (14-36); Bilirubin,Total 0.3 mg/dL (0.2-1.3); Blood Urea Nitrogen 28 mg/dL (7-17); Calcium 9.2 mg/dL (8.4-10.2); Carbon Dioxide 22 mmol/L (22-30); Chloride 105 mmol/L (98-107); Estimated CRCL calculation 26 ml/min; Estimated Glomerular Filt Rate 41; Glucose 94 mg/dL (65-110); Lipase 321 U/L (23-300); Potassium 4.6 mmol/L (3.4-5.0); Sodium 137 mmol/L (137-145)
[2023-09-25 21:30] VITALS: BP 110/84; PULSE 85; RESP 14; O2SAT 98
[2023-09-25 21:38] LABS: Appearance Urine Clear (Clear); Bilirubin Urine Negative (Negative); Blood Urine Negative (Negative); Color Urine Yellow (Yellow); Glucose Urine UA Negative (Negative); Ketones Urine Negative (Negative); Leukocyte Esterase Ur Negative LEU/UL (Negative); Nitrate Urine Negative (Negative); Protein Urine Negative (Negative); Specific Grav Ur 1.009 (1.001-1.035); Urobilinogen Urine 0.2 mg/dL (<2.0); pH Urine 5.5 (5.0-9.0)
[2023-09-25 21:48] LABS: Add Urine Microscopic? NO
[2023-09-25 22:36] VITALS: BP 103/60; PULSE 93; RESP 16; O2SAT 100
[2023-09-25] MEDS: HYDROmorphone HCL INJ (*CRX) 1 MG/ML SYR IV PUSH (22:37)
[2023-09-25] MEDS: PIPERACILLN/TAZ 3.375GM/NS50ML 3.375 GM/50 ML BAG IVPB (23:22)
[2023-09-25] MEDS: HYDROmorphone HCL INJ (*CRX) 1 MG/ML SYR 0.5 MG IV PUSH (23:33)
--- NOTE | 2023-09-26 00:01 | ADMGEN ---
This patient, Jeanne Fragoso, was admitted to Medical Room 345-01. Patient/family oriented to hospital policies and general routines including ID bracelet, bed and alarms, visiting hours, pain management, procedures, bathroom and other care routines, personal items, smoking policy, room service/diet, and visiting hours. Information on how to activate the Rapid Response Team has been discussed. Patient/Family are encouraged to report perceived risks to care and to ask questions if they do not understand what they are told or what they should do.
[2023-09-26 00:26] VITALS: BMI 17.2
[2023-09-26 00:27] VITALS: BP 114/69; PULSE 85; RESP 18; TEMP 36.7; O2SAT 100
[2023-09-26] MEDS: SODIUM CHLORIDE 0.9% IV 1,000 ML 125 ML IV CONT ×2 (00:28→09:21)
[2023-09-26] MEDS: ONDANSETRON INJ 4 MG/2 ML VIAL IV PUSH ×3 (00:29→18:06)
[2023-09-26] MEDS: PIPERACILLIN/TAZ 2.25G/NS 50ML 2.25 GM/50 ML BAG IVPB ×4 (05:12→22:05)
[2023-09-26] MEDS: hydrOXYzine HCL 25 MG TABLET PO ×5 (05:25→20:42)
[2023-09-26 06:00] VITALS: BP 114/67; PULSE 98; RESP 16; TEMP 36.8; O2SAT 100
--- NOTE | 2023-09-26 06:05 | PM.IMHP ---
H&P: HPI History of Present Illness Date/Time: 09/26/23 06:05 Chief Complaint: Abdominal pain Narrative: 62-year-old female with extensive medical history COPD, anxiety, depression, hyperlipidemia, chronic pain syndrome, was in the hospital about 3 weeks ago with extensive abdominal surgery workup and evaluation ileostomy bag was placed patient had a fistula which was addressed and also had hydronephrosis seen by Urology this time she comes in again with the similar complaints of abdominal pain and red stools. Denies any fever but the pain she rates at 8/10 cramping in nature. No signs of sepsis surgery has been consulted for further workup and evaluation. Continue patient's previous admission patient had a sigmoid colectomy and ileostomy done. Patient noted to have intra-abdominal abscess which was drained by the Radiology under IR. Patient also has history of anemia due to blood loss and did receive 1 unit of packed red blood cells patient HHS stable right now patient is a full code Review of Systems Review of Systems: All systems reviewed & are unremarkable except as noted in HPI and below PMFSH Past Medical History Medical History Borderline personality disorder Chronic back pain COPD (chronic obstructive pulmonary disease) ERIKA (generalized anxiety disorder) History of MRSA infection With MRSA screen 08/13/2023 being negative HLD (hyperlipidemia) Hypothyroid IBS (irritable bowel syndrome) MDD (major depressive disorder) Paranoid schizophrenia Surgical History Surgical History History of abdominal surgery no current documentation available, midline incision - likely laparotomy. Unclear if from choley. History of x2 History of cholecystectomy Family History Family History Other Heart attack Social History Social History Social History: Was resident at [facility] ([phone]), previously at [facility] in [place], [place] ([phone]). After her prolonged hospitalization February through March the patient was discharged to [facility]. Code status: Full Code per EMR however the patient's state resuscitation form states that she wants to be a full code but then confusing the matter the box regarding comfort based treatment is also marked. This will need to be clarified with the patient and her daughter. Surrogate decision maker: Camille Weinberg (daughter) Years smoked: 30 Smoking status: Light tobacco smoker Tobacco type: cigarettes Alcohol intake: never Substance use: never Do You Feel Safe in your Home?: Yes Lack of Transportation: No Lack of Food: Never True Current Housing: I Have Housing Concerned About Future Housing: No Difficulty Paying Gas/Electric Bills: No Difficulty Paying for Meds: No Currently Unemployed: No Education: High School Diploma/GED Difficulty w/ Childcare or Family Care: No Spiritual care concerns: No Meds Home Medications and Allergies Home Medications Medication Instructions Recorded Confirmed Type acetaminophen 325 mg tablet 650 mg PO Q4-6H PRN Pain 03/09/23 09/26/23 History albuterol sulfate 90 mcg/actuation 2 puff inhalation Q4-6H PRN 03/09/23 09/26/23 History aerosol inhaler Shortness Of Breath Or Wheezing gabapentin 300 mg capsule 300 mg PO HS 03/09/23 09/26/23 History lamotrigine 100 mg tablet 100 mg PO BID 03/09/23 09/26/23 History levothyroxine 50 mcg tablet 50 mcg PO DAILY 03/09/23 09/26/23 History omeprazole 10 mg capsule,delayed 10 mg PO DAILY 03/09/23 09/26/23 History release aspirin 81 mg chewable tablet 81 mg PO DAILY@0800 #30 tabs 04/04/23 09/26/23 Rx (Children's Aspirin) atorvastatin 40 mg tablet 40 mg PO DAILY #30 tabs 04/04/23 09/26/23 Rx Adult One Daily Multivitamin 1
[2023-09-26] MEDS: LEVOTHYROXINE SODIUM 50 MCG TABLET PO (06:29)
[2023-09-26 06:38] LABS: Hematocrit 30.1 % (37.0-47.0); Hemoglobin 9.4 g/dL (12.0-15.0); Mean Corpuscular HGB Conc 31.2 g/dl (32-36); Mean Corpuscular Hemoglobin 27.2 pg (26-34); Mean Corpuscular Volume 87.2 fl (80-100); Mean Platelet Volume 9.6 fl (7.4-10.4); Platelet Count Result 225 k/mm3 (150-375); Red Blood Count 3.45 M/mm3 (4.2-5.4); Red Cell Distribution Width 15.2 % (11.5-14.5); White Blood Count 9.1 K/mm3 (4.5-10.0)
[2023-09-26 06:50] LABS: Alanine Aminotransferase 26 U/L (6-35); Albumin Level 3.1 g/dL (3.5-5.1); Alkaline Phosphatase 77 U/L (38-126); Anion Gap 8 mmol/L (4-12); Aspartate Amino Transferase 25 U/L (14-36); Bilirubin,Total 0.3 mg/dL (0.2-1.3); Blood Urea Nitrogen 21 mg/dL (7-17); Calcium 8.7 mg/dL (8.4-10.2); Carbon Dioxide 19 mmol/L (22-30); Chloride 112 mmol/L (98-107); Estimated CRCL calculation 27 ml/min; Estimated Glomerular Filt Rate 41; Glucose 86 mg/dL (65-110); Potassium 4.3 mmol/L (3.4-5.0); Sodium 139 mmol/L (137-145)
[2023-09-26 07:37] VITALS: O2SAT 98
[2023-09-26] MEDS: DULoxetine HCL 20 MG CAPSULE.DR 40 MG PO (09:18)
[2023-09-26] MEDS: lamoTRIgine 100 MG TABLET PO ×2 (09:18→20:42)
[2023-09-26] MEDS: risperiDONE 0.5 MG TABLET PO (09:18)
[2023-09-26] MEDS: ATORVASTATIN 40 MG TABLET PO (09:18)
[2023-09-26] MEDS: HYDROmorphone HCL INJ (*CRX) 1 MG/ML SYR 0.5 MG IV PUSH ×2 (09:24→18:06)
--- NOTE | 2023-09-26 09:49 | PM.CNGS ---
Assessment and Plan Assessment and plan (1) Intra-abdominal abscess: Code(s): K65.1 - Peritoneal abscess Status: Acute Assessment and Plan: Patient returns with CT scan showing two fluid collections, one in the right flank musculature which was present on her previous hospitalization and appears unchanged, and a second fluid collection in the left paracolic gutter that is small. She has been complaining of left-sided abdominal pain, but she does not have any infectious signs. She has been afebrile and her white blood cell count is normal. I reviewed her CT scan from this admission as well as all of her previous CT scan of the abdomen and pelvis since March with the Radiologist. He compared all images. The fluid collection in the right flank musculature still has some gas and fluid in this area, but it is unchanged. This is where we had removed the percutaneous drain in August that was felt to be the EC fistula. If the fistula was still open and causing issues, then you would expect this to have grown in size, which it has not. The other small fluid collection in the left was actually also seen on her previous CT scans. There was fluid in this area in March, which was following her initial surgeries, and appeared more like ascites. She then had a more organized fluid collection in this area that is also seen in July and August, but is not mentioned in the report. The fluid collection is the same size as it was in July and August. The Radiologist does feel that he could try aspirating the fluid in this area under ultrasound-guidance. He can send this fluid off for culture and if it appears purulent and it would be appropriate, then he may leave a percutaneous drain in place. Given her abdominal pain, we would recommend proceeding with ultrasound-guided drainage of the fluid collection in the left paracolic gutter. Continue IV Zosyn for now and we will get cultures of the fluid. No indication for any surgical management at this point. She will stay NPO for the procedure, but her diet can be advanced as tolerated after she returns from the drainage procedure. 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 (4) COPD (chronic obstructive pulmonary disease): Code(s): J44.9 - Chronic obstructive pulmonary disease, unspecified Status: Acute (5) Anxiety and depression: Code(s): F41.9 - Anxiety disorder, unspecified; F32.A - Depression, unspecified Status: Acute Assessment and Plan: Tearful and anxious this morning. This is typical with her hospitalizations. Continue home medications. Plan I have discussed the patient's case and plan of care with Dr. Kim. Thank you for allowing us to see the patient in consultation and we will continue to follow along with you. History of Present Illness Consult details Consult date: 09/26/23 Reason for consult: other (Intraabdominal abscess) Requesting physician: Harish Tan MD Narrative: This is a 62-year-old woman who is well known to our service from multiple previous hospitalizations. She was initially admitted to [facility] in [place] of 2022. She was first thought to have pneumonia and clinically deteriorated with abdominal distension and CT scan suggesting colitis. She was in the ICU and continued to deteriorate with a repeat CT scan showing free air consistent with bowel perforation. She was taken emergently to the OR and underwent a subtotal colectomy starting at the ileocecal valve extending all the way to the mid sigmoid colon, which was completely necrotic. She was hemodynamically unstable in the OR following the colon resection to the point that she was unable to be closed and her fascia was left open with bowel discontinuity, and taken back to the
[2023-09-26 11:25] LABS: INR 1.1; Prothrombin Time 14.2 Seconds (11.1-14.7)
--- NOTE | 2023-09-26 12:35 | PM.IMPN ---
Progress Note: A&P Assessment and Plan (1) Intra-abdominal abscess: Code(s): K65.1 - Peritoneal abscess Status: Acute Assessment and Plan: -s/p sigmoid colectomy, segmental small bowel resection with placement of end ileostomy from 02/2023. -presented this admission (08/12) with c/o abdominal pain and was found to have EC fistula. IR drain was placed and has since been removed on 08/27. She was treated with IV antibiotics (meropenem), since transitioned to Augmentin. -Another intra-abdominal abscess, To be drained by IR -Surgical consult placed, thank you for your help -p.r.nShirley [place] for pain -added Bentyl for abdominal cramping and high-output ileostomy -All home meds have been restarted -Blood cultures. -IV antibiotics. Zosyn -Monitor blood pressure. 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 Status: Acute Assessment and Plan: Noted on the imaging General surgery on consult Trend labs Adjust therapy as indicated (3) Urinary retention: Code(s): R33.9 - Retention of urine, unspecified Status: Acute (4) Anxiety and depression: Code(s): F41.9 - Anxiety disorder, unspecified; F32.A - Depression, unspecified Status: Acute Assessment and Plan: counseling, SCM Cymbalta, lamotrigine, hydroxyzine and respidone gabapentin relaxation therapy, and anti-anxiety medication as advised Patient hopes to reduce frequency/intensity of anxiety response , Patient hopes to consistently use adaptive coping strategies to manage anxiety and panic , Patient hopes to eliminate avoidant behavior , Patient hopes to identify, challenge and modify negative, anxious and/or obsessive thoughts Identify and explore triggers to anxiety , and Learn and implement mindfulness and other calming skills to decrease anxiety (5) ITALO (acute kidney injury): Code(s): N17.9 - Acute kidney failure, unspecified Status: Acute Assessment and Plan: cause infection/dehydration serum creatinine 1.30 on admission and currently Baseline appears to be 0.8-0.9 Avoid nephrotoxic drugs. Monitor antihypertensive drug therapy. Avoid NSAIDs. Routine CMP monitoring GFR 41 Monitor electrolytes especially potassium. Pharmacy does medications. History of hydronephrosis was consulted by urology last time Time Spent With Patient Time: 51 minutes Time with patient: Greater than 35 minutes Subjective Date/time seen: 09/26/23 12:35 Interval history: 09/26/23 06:05 62-year-old female with extensive medical history COPD, anxiety, depression, hyperlipidemia, chronic pain syndrome, was in the hospital about 3 weeks ago with extensive abdominal surgery workup and evaluation ileostomy bag was placed patient had a fistula which was addressed and also had hydronephrosis seen by Urology this time she comes in again with the similar complaints of abdominal pain and red stools. Denies any fever but the pain she rates at 8/10 cramping in nature. No signs of sepsis surgery has been consulted for further workup and evaluation. Continue patient's previous admission patient had a sigmoid colectomy and ileostomy done. Patient noted to have intra-abdominal abscess which was drained by the Radiology under IR. Patient also has history of anemia due to blood loss and did receive 1 unit of packed red blood cells patient HHS stable right now patient is a full code 09/26/2023 1025 Patient is laying in bed crying. She stated that she feels like she needs to poop and no one is listening to her. She currently denies any chest pain, shortness of breath, diarrhea, fevers, sweats, and chills. She did complain of cramping, and is crabby. Review of Systems Review of Systems: All systems reviewed & are unremarkable except as noted in HPI and below Exam Narrative: General: well-nourished,
[2023-09-26 13:23] VITALS: BMI 17.2
[2023-09-26 14:00] VITALS: BP 110/64; PULSE 93; RESP 16; TEMP 36.5; O2SAT 100
[2023-09-26 20:17] VITALS: O2SAT 98
[2023-09-26 20:41] VITALS: BP 100/70; PULSE 78; RESP 18; TEMP 37.2; O2SAT 96
[2023-09-26] MEDS: GABAPENTIN 300 MG CAPSULE PO (20:42)
[2023-09-26] MEDS: MELATONIN 3 MG TABLET PO (20:42)
[2023-09-27] MEDS: PIPERACILLIN/TAZ 2.25G/NS 50ML 2.25 GM/50 ML BAG IVPB ×4 (04:01→23:33)
[2023-09-27] MEDS: SODIUM CHLORIDE 0.9% IV 1,000 ML 125 ML IV CONT ×3 (04:01→23:34)
[2023-09-27] MEDS: LEVOTHYROXINE SODIUM 50 MCG TABLET PO (05:56)
[2023-09-27 06:00] VITALS: BP 106/61; PULSE 71; RESP 16; TEMP 36.4; O2SAT 99
[2023-09-27 06:05] LABS: Hematocrit 26.5 % (37.0-47.0); Hemoglobin 8.5 g/dL (12.0-15.0); Mean Corpuscular HGB Conc 32.1 g/dl (32-36); Mean Corpuscular Hemoglobin 27.6 pg (26-34); Platelet Count Result 177 k/mm3 (150-375); Red Blood Count 3.08 M/mm3 (4.2-5.4); White Blood Count 3.7 K/mm3 (4.5-10.0)
[2023-09-27 06:26] LABS: Alanine Aminotransferase 52 U/L (6-35); Albumin Level 2.7 g/dL (3.5-5.1); Alkaline Phosphatase 104 U/L (38-126); Anion Gap 7 mmol/L (4-12); Aspartate Amino Transferase 47 U/L (14-36); Bilirubin,Total 0.3 mg/dL (0.2-1.3); Blood Urea Nitrogen 15 mg/dL (7-17); Calcium 8.4 mg/dL (8.4-10.2); Carbon Dioxide 18 mmol/L (22-30); Chloride 113 mmol/L (98-107); Estimated CRCL calculation 25 ml/min; Estimated Glomerular Filt Rate 38; Glucose 73 mg/dL (65-110); Potassium 3.9 mmol/L (3.4-5.0); Sodium 138 mmol/L (137-145)
[2023-09-27] MEDS: HYDROmorphone HCL INJ (*CRX) 1 MG/ML SYR 0.5 MG IV PUSH ×3 (06:32→13:59)
[2023-09-27] MEDS: ONDANSETRON INJ 4 MG/2 ML VIAL IV PUSH ×2 (06:34→17:09)
[2023-09-27] MEDS: ASPIRIN 81 MG CHEWABLE TABLET PO (09:29)
[2023-09-27] MEDS: lamoTRIgine 100 MG TABLET PO ×2 (09:29→21:24)
[2023-09-27] MEDS: DULoxetine HCL 20 MG CAPSULE.DR 40 MG PO (09:29)
[2023-09-27] MEDS: risperiDONE 0.5 MG TABLET PO (09:29)
[2023-09-27] MEDS: hydrOXYzine HCL 25 MG TABLET PO ×4 (09:30→21:24)
[2023-09-27] MEDS: ASCORBIC ACID 500 MG TABLET PO (09:30)
[2023-09-27] MEDS: FOLIC ACID 1 MG TABLET PO (09:30)
[2023-09-27] MEDS: THIAMINE HCL 100 MG TABLET PO (09:30)
[2023-09-27] MEDS: PANTOPRAZOLE 40 MG TABLET PO (09:32)
--- NOTE | 2023-09-27 11:39 | WPDPN ---
Progress Note: A&P Assessment and Plan (1) Intra-abdominal abscess: Code(s): K65.1 - Peritoneal abscess Status: Acute Assessment and Plan: The fluid collection left upper quadrant was aspirated yesterday. Grossly did not appear to be infected. Cultures are still pending on the fluid. We will continue IV antibiotics for right now and till culture results are obtained. If the culture is sterile then can stop antibiotics and discharge her back to care facility. That can likely be done tomorrow. 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 No evidence of a enterocutaneous fistula on the right side of the abdomen clinically. Drain site where the abscess was drained is closed and there is no wounds that have any enteric contents draining from them on the right abdomen. Subjective Date/time seen: 09/27/23 11:39 Interval history: Patient has no complaints today. Denies any significant abdominal pain. No nausea or vomiting. Output from end ileostomy is normal appearing liquid small-bowel content. She had image guided aspiration of the left upper quadrant fluid collection yesterday. Note states that the fluid was straw-colored and nonpurulent. Fluid was sent for culture. White blood count is normal. Patient is afebrile. Exam Const: General: comfortable and no acute distress Eyes: General: appearance normal, both eyes and all related structures Sclera: sclerae normal Pupils: Equal, round and reactive pupils present Neck: Neck: supple Resp: Effort & Inspection: normal respiratory effort Auscultation: clear to auscultation bilaterally Cardio: Rate: regular rate GI: Other: Abdomen soft and nondistended. End ileostomy in the right abdominal wall is working well with good output. There is about a 1-2 cm very minimal collapsing ostomy without peristomal hernia. Mucosa of the ostomy is healthy. Objective Data Vital Signs Vital Signs: Vital Signs - 24 hr 09/26/23 14:00 09/26/23 20:17 09/26/23 20:41 Temperature 36.5 C 37.2 C Pulse Rate 93 78 Respiratory Rate 16 18 Blood Pressure 110/64 100/70 Pulse Oximetry 100 98 96 Oxygen Delivery Room Air 09/26/23 20:00 09/27/23 06:00 09/27/23 08:00 Temperature 36.4 C L Pulse Rate 71 Respiratory Rate 16 Blood Pressure 106/61 Pulse Oximetry 99 Oxygen Delivery Room Air Room Air Intake/Output Intake/Output: Intake & Output 09/24/23 09/25/23 09/26/23 09/27/23 23:59 23:59 23:59 23:59 Intake Total 1050 2200 290 Output Total 508 700 Balance 1050 1692 -410 Meds/Results Medications: Active Medications Generic Name Dose Route Start Last Admin Trade Name Freq PRN Reason Stop Dose Admin Acetaminophen 650 mg 09/26/23 06:02 Acetaminophen 325 Mg Tablet PO Q4-6H PRN Pain Albuterol 2 puff 09/26/23 06:02 Albuterol Sulfate (*Sp) Aerosol 1 Puff INHALATION Q4-6H PRN Shortness Of Breath Or Wheezing Ascorbic Acid 500 mg 09/26/23 09:00 09/27/23 09:30 Ascorbic Acid 500 Mg Tablet PO 500 mg DAILY PARAS Administration Aspirin 81 mg 09/26/23 08:00 09/27/23 09:29 Aspirin 81 Mg Chewable Tablet PO 81 mg DAILY@0800 PARAS Administration Atorvastatin Calcium 40 mg 09/26/23 09:00 09/27/23 09:31 Atorvastatin 40 Mg Tablet PO Not Given DAILY [facility] Dicyclomine HCl 20 mg 09/26/23 06:02 Dicyclomine Hcl 10 Mg Capsule PO QID PRN Abdominal Cramping Duloxetine HCl 40 mg 09/26/23 09:00 09/27/23 09:29 Duloxetine Hcl 20 Mg Capsule.Dr PO 40 mg DAILY PARAS Administration Enoxaparin Sodium 30 mg 09/26/23 09:00 09/27/23 10:48 Enoxaparin 30 Mg/0.3 Ml Syringe SUB-Q Not Given DAILY [facility] Folic Acid 1 mg 09/26/23 09:00 09/27/23 09:30 Folic Acid 1 Mg Tablet PO 1 mg DAILY PARAS Administration Gabape
--- NOTE | 2023-09-27 11:54 | PCNFU ---
Nutrition Follow-Up Complete: Severe protein calorie malnutrition related to chronic altered GI function as evidenced by intakes <75% needs >1 month; severe muscle wasting and fat loss Improve PO intake when diet is advanced - Progressing. Diet is advanced, intakes still poor. Goal: Pt current nutrition is Regular diet. Nutrition recommendation: Oral nutrition supplements: Ensure Enlive TID for additional 350 kcal and 20 g protein each. Nutritional ice cream BID for additional 270 kcal and 9 g protein each Last recorded weight is 42.7 kg. Bowel Motility: +2 BMs 09/27/23 Labs Reviewed: Hgb 8.5, Hct 26.5, Alb 2.7, Cre 1.4 Meds Noted: Vit C, folic acid, thiamine, bentyl, zofran, protonix Skin: Ileostomy Additional Notes: Appetite remains poor. Pt does not like supplements much from past visits. Continue current nutrition care plan. Monitoring diet advancement, weights, labs, PO intake, plan of care Follow up in 3 days
[2023-09-27 11:59] LABS: IFOB Positive Control Positive; Immunochemical Fecal Occult Bl Negative (N)
[2023-09-27] MEDS: ONDANSETRON HCL ODT 4 MG TABLET PO (12:29)
--- NOTE | 2023-09-27 13:35 | PM.IMPN ---
Progress Note: A&P Assessment and Plan (1) Intra-abdominal abscess: Code(s): K65.1 - Peritoneal abscess Status: Acute Assessment and Plan: -s/p sigmoid colectomy, segmental small bowel resection with placement of end ileostomy from 02/2023. -presented this admission (08/12) with c/o abdominal pain and was found to have EC fistula. IR drain was placed and has since been removed on 08/27. She was treated with IV antibiotics (meropenem), since transitioned to Augmentin. -Another intra-abdominal abscess, To be drained by IR -Surgical consult placed, thank you for your help -p.rShirleynShirley العليco for pain -added Bentyl for abdominal cramping and high-output ileostomy -All home meds have been restarted -Blood cultures. -IV antibiotics. Zosyn -Monitor blood pressure. 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 Status: Acute Assessment and Plan: Noted on the imaging General surgery on consult Trend labs Adjust therapy as indicated (3) Anxiety and depression: Code(s): F41.9 - Anxiety disorder, unspecified; F32.A - Depression, unspecified Status: Acute Assessment and Plan: counseling, SCM Cymbalta, lamotrigine, hydroxyzine and respidone gabapentin relaxation therapy, and anti-anxiety medication as advised Patient hopes to reduce frequency/intensity of anxiety response , Patient hopes to consistently use adaptive coping strategies to manage anxiety and panic , Patient hopes to eliminate avoidant behavior , Patient hopes to identify, challenge and modify negative, anxious and/or obsessive thoughts Identify and explore triggers to anxiety , and Learn and implement mindfulness and other calming skills to decrease anxiety (4) ITALO (acute kidney injury): Code(s): N17.9 - Acute kidney failure, unspecified Status: Acute Assessment and Plan: cause infection/dehydration serum creatinine 1.30 on admission and currently 1.40 Baseline appears to be 0.8-0.9 Avoid nephrotoxic drugs. Monitor antihypertensive drug therapy. Avoid NSAIDs. Routine CMP monitoring GFR 41 Monitor electrolytes especially potassium. Pharmacy does medications. History of hydronephrosis was consulted by urology last time Time Spent With Patient Time: 52 minutes Time with patient: Greater than 35 minutes Subjective Date/time seen: 09/27/23 13:35 Interval history: 09/26/23 06:05 62-year-old female with extensive medical history COPD, anxiety, depression, hyperlipidemia, chronic pain syndrome, was in the hospital about 3 weeks ago with extensive abdominal surgery workup and evaluation ileostomy bag was placed patient had a fistula which was addressed and also had hydronephrosis seen by Urology this time she comes in again with the similar complaints of abdominal pain and red stools. Denies any fever but the pain she rates at 8/10 cramping in nature. No signs of sepsis surgery has been consulted for further workup and evaluation. Continue patient's previous admission patient had a sigmoid colectomy and ileostomy done. Patient noted to have intra-abdominal abscess which was drained by the Radiology under IR. Patient also has history of anemia due to blood loss and did receive 1 unit of packed red blood cells patient HHS stable right now patient is a full code 09/26/2023 1025 Patient is laying in bed crying. She stated that she feels like she needs to poop and no one is listening to her. She currently denies any chest pain, shortness of breath, diarrhea, fevers, sweats, and chills. She did complain of cramping, and is crabby. 09/27/2023 1330 Patient is feeling a bit distraught today. She is concerned about her ostomy. She is also stating that she is having a lot of pain. Currently she is denying any chest pain, shortness of [place]
[2023-09-27 15:52] VITALS: BP 87/46; PULSE 84; RESP 16; TEMP 36.2; O2SAT 100
[2023-09-27 16:09] VITALS: BP 82/58
[2023-09-27] MEDS: SODIUM CHLORIDE 0.9% IV 1,000 ML 999 ML IV CONT (16:40)
[2023-09-27] MEDS: ACETAMINOPHEN 325 MG TABLET 650 MG PO (16:41)
[2023-09-27 17:34] VITALS: BP 106/61; PULSE 80
[2023-09-27 20:00] VITALS: O2SAT 98
[2023-09-27 20:48] VITALS: BP 103/50; PULSE 77; RESP 16; TEMP 37; O2SAT 98
[2023-09-27] MEDS: MELATONIN 3 MG TABLET PO (21:24)
[2023-09-27] MEDS: GABAPENTIN 300 MG CAPSULE PO (21:24)
[2023-09-28] VITALS (7 sets, daily range): BP systolic 98–120; BP diastolic 52–66; PULSE 74–101; RESP 17–20; TEMP 36.9; O2SAT 98–100
[2023-09-28] MEDS: PIPERACILLIN/TAZ 2.25G/NS 50ML 2.25 GM/50 ML BAG IVPB ×4 (05:26→22:07)
[2023-09-28] MEDS: HYDROmorphone HCL INJ (*CRX) 1 MG/ML SYR 0.5 MG IV PUSH ×3 (05:28→20:52)
[2023-09-28] MEDS: LEVOTHYROXINE SODIUM 50 MCG TABLET PO (05:29)
[2023-09-28] MEDS: lamoTRIgine 100 MG TABLET PO ×2 (08:40→20:52)
[2023-09-28] MEDS: ASCORBIC ACID 500 MG TABLET PO (08:40)
[2023-09-28] MEDS: ASPIRIN 81 MG CHEWABLE TABLET PO (08:40)
[2023-09-28] MEDS: risperiDONE 0.5 MG TABLET PO (08:40)
[2023-09-28] MEDS: PANTOPRAZOLE 40 MG TABLET PO (08:41)
[2023-09-28] MEDS: THIAMINE HCL 100 MG TABLET PO (08:41)
[2023-09-28] MEDS: DULoxetine HCL 20 MG CAPSULE.DR 40 MG PO (08:41)
[2023-09-28] MEDS: FOLIC ACID 1 MG TABLET PO (08:41)
[2023-09-28] MEDS: HYDROcodone/acetaminophen (*CRX) 5-325 MG TABLET 1 TAB PO ×2 (08:41→18:26)
[2023-09-28] MEDS: hydrOXYzine HCL 25 MG TABLET PO ×4 (08:41→20:52)
[2023-09-28] MEDS: SODIUM CHLORIDE 0.9% IV 1,000 ML 125 ML IV CONT (08:44)
[2023-09-28] MEDS: ONDANSETRON INJ 4 MG/2 ML VIAL IV PUSH ×2 (10:50→17:03)
--- NOTE | 2023-09-28 11:15 | PM.IMPN ---
Progress Note: A&P Assessment and Plan (1) Intra-abdominal abscess: Code(s): K65.1 - Peritoneal abscess Status: Acute Assessment and Plan: -s/p sigmoid colectomy, segmental small bowel resection with placement of end ileostomy from 02/2023. -presented this admission (08/12) with c/o abdominal pain and was found to have EC fistula. IR drain was placed and has since been removed on 08/27. She was treated with IV antibiotics (meropenem), since transitioned to Augmentin. -Another intra-abdominal abscess, To be drained by IR -Surgical consult placed, thank you for your help -p.rShirleynShirley العليco for pain -added Bentyl for abdominal cramping and high-output ileostomy -All home meds have been restarted -Blood cultures. -IV antibiotics. Zosyn -Monitor blood pressure. 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 Status: Acute Assessment and Plan: Noted on the imaging General surgery on consult Trend labs Adjust therapy as indicated (3) Anxiety and depression: Code(s): F41.9 - Anxiety disorder, unspecified; F32.A - Depression, unspecified Status: Acute Assessment and Plan: counseling, SCM Cymbalta, lamotrigine, hydroxyzine and respidone gabapentin relaxation therapy, and anti-anxiety medication as advised Patient hopes to reduce frequency/intensity of anxiety response , Patient hopes to consistently use adaptive coping strategies to manage anxiety and panic , Patient hopes to eliminate avoidant behavior , Patient hopes to identify, challenge and modify negative, anxious and/or obsessive thoughts Identify and explore triggers to anxiety , and Learn and implement mindfulness and other calming skills to decrease anxiety (4) ITALO (acute kidney injury): Code(s): N17.9 - Acute kidney failure, unspecified Status: Acute Assessment and Plan: cause infection/dehydration serum creatinine 1.20 on admission and currently 1.40 Baseline appears to be 0.8-0.9 Avoid nephrotoxic drugs. Monitor antihypertensive drug therapy. Avoid NSAIDs. Routine CMP monitoring GFR 45 Monitor electrolytes especially potassium. Pharmacy does medications. Time Spent With Patient Time with patient: 25 - 35 minutes Subjective Date/time seen: 09/28/23 11:15 Interval history: 62-year-old female with extensive medical history COPD, anxiety, depression, hyperlipidemia, chronic pain syndrome, was in the hospital about 3 weeks ago with extensive abdominal surgery workup and evaluation ileostomy bag was placed patient had a fistula which was addressed and also had hydronephrosis seen by Urology this time she comes in again with the similar complaints of abdominal pain and red stools. 09/28/2023 0930 Patient is sitting up in the bed eating breakfast in no acute distress, as I approach patient she begins to show signs of anxiety she becomes tearful asking many questions in reference to speeding up her process to go back to snf, she complains about her family not being able to help with her medical decisions, she complains of ongoing depression denies any SI or HI, she reports moderate to extensive abdominal pain, she is requesting Dilaudid, she is also requesting a new antidepressant medication. Review of Systems Review of Systems: All systems reviewed & are unremarkable except as noted in HPI and below Exam Narrative: General: ill-appearing 62-year-old female, sitting up in bed, mild anxiety, tearful Neuro: awake, alert and oriented x4, speech clear, no focal neuro deficits noted HEENMT: normocephalic, atraumatic, EOMI, sclerae anicteric, moist oral mucosa Respiratory: Clear to auscultation bilaterally without crackles, rhonchi or wheezes, nonlabored breathing Cardio: regular rate, regular rhythm with S1-S2 Abdomen: no
[2023-09-28 11:37] LABS: Basophils Percent Auto 0.2 % (0.2-1.2); Eosinophils Percent Auto 0.7 % (0-4.4); Hematocrit 27.8 % (37.0-47.0); Hemoglobin 8.5 g/dL (12.0-15.0); Immature Granulocyte Absolute 0.02 K/mm3 (0.00-0.031); Immature Granulocyte Percent A 0.3 % (0-0.5); Lymphocytes Percent Auto 17.5 % (18.3-44.2); Mean Corpuscular HGB Conc 30.6 g/dl (32-36); Mean Corpuscular Hemoglobin 27.6 pg (26-34); Mean Corpuscular Volume 90.3 fl (80-100); Monocytes Absolute Auto 0.5 K/mm3 (0.1-0.6); Monocytes Percent Auto 8.6 % (2.6-8.5); Neutrophils Absolute Auto 4.2 K/mm3 (1.3-6.7); Neutrophils Percent Auto 72.7 % (45.5-73.1); Platelet Count Result 171 k/mm3 (150-375); Red Blood Count 3.08 M/mm3 (4.2-5.4); Red Cell Distribution Width 15.1 % (11.5-14.5); White Blood Count 5.7 K/mm3 (4.5-10.0)
[2023-09-28 11:49] LABS: Alanine Aminotransferase 50 U/L (6-35); Albumin Level 2.9 g/dL (3.5-5.1); Alkaline Phosphatase 98 U/L (38-126); Anion Gap 9 mmol/L (4-12); Aspartate Amino Transferase 32 U/L (14-36); Bilirubin,Total 0.2 mg/dL (0.2-1.3); Blood Urea Nitrogen 17 mg/dL (7-17); Calcium 8.2 mg/dL (8.4-10.2); Carbon Dioxide 18 mmol/L (22-30); Chloride 113 mmol/L (98-107); Estimated CRCL calculation 29 ml/min; Estimated Glomerular Filt Rate 45; Glucose 70 mg/dL (65-110); Sodium 140 mmol/L (137-145)
[2023-09-28] MEDS: GABAPENTIN 300 MG CAPSULE PO (20:52)
[2023-09-28] MEDS: MELATONIN 3 MG TABLET PO (20:52)
[2023-09-28] MEDS: ONDANSETRON HCL ODT 4 MG TABLET PO (20:56)
[2023-09-29] MEDS: HYDROcodone/acetaminophen (*CRX) 5-325 MG TABLET 1 TAB PO ×2 (01:03→21:03)
[2023-09-29] MEDS: LEVOTHYROXINE SODIUM 50 MCG TABLET PO (05:27)
[2023-09-29] MEDS: PIPERACILLIN/TAZ 2.25G/NS 50ML 2.25 GM/50 ML BAG IVPB ×2 (05:27→11:29)
[2023-09-29 06:00] VITALS: BP 103/46; PULSE 81; RESP 18; TEMP 36.6; O2SAT 100
[2023-09-29 06:11] LABS: Alanine Aminotransferase 37 U/L (6-35); Albumin Level 3.2 g/dL (3.5-5.1); Alkaline Phosphatase 80 U/L (38-126); Anion Gap 9 mmol/L (4-12); Aspartate Amino Transferase 26 U/L (14-36); Bilirubin,Total 0.2 mg/dL (0.2-1.3); Blood Urea Nitrogen 27 mg/dL (7-17); Carbon Dioxide 14 mmol/L (22-30); Chloride 114 mmol/L (98-107); Estimated CRCL calculation 29 ml/min; Estimated Glomerular Filt Rate 45; Glucose 95 mg/dL (65-110); Potassium 4.2 mmol/L (3.4-5.0); Sodium 137 mmol/L (137-145)
--- NOTE | 2023-09-29 09:54 | PM.IMPN ---
Progress Note: A&P Assessment and Plan (1) Intra-abdominal abscess: Code(s): K65.1 - Peritoneal abscess Status: Acute Assessment and Plan: S/p sigmoid colectomy, segmental small bowel resection with placement of end ileostomy from 02/2023. 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 IR drain was placed and has since been removed on 08/27. She was treated with IV antibiotics (meropenem), since transitioned to Augmentin. -Another intra-abdominal abscess, drained, but was on Zosyn. -Surgery consulted, appreciate recommendations. -p.r.n. [place] for pain -added Bentyl for abdominal cramping and high-output ileostomy, changed from p.r.n. to scheduled -All home meds have been restarted -blood cultures since admission, afebrile and has been Zosyn so would not be helpful to send this point. Reorder if new symptoms -IV antibiotics. Zosyn. Change to Augmentin 500/125 q12 (doses for creatinine clearance) and monitor overnight. Will likely need at least a 3 week course with follow up imaging. Would benefit from ID follow up after discharge -Monitor blood pressure, did have some hypotension -Regular diet -Most likely discharge in the am unless worsening --Check CBC, CRP, ESR in AM (2) Anxiety and depression: Code(s): F41.9 - Anxiety disorder, unspecified; F32.A - Depression, unspecified Status: Acute Assessment and Plan: Counseling, SCM Cymbalta, lamotrigine, hydroxyzine and risperidone, gabapentin relaxation therapy, and anti-anxiety medication as advised Patient hopes to reduce frequency/intensity of anxiety response , Patient hopes to consistently use adaptive coping strategies to manage anxiety and panic , Patient hopes to eliminate avoidant behavior , Patient hopes to identify, challenge and modify negative, anxious and/or obsessive thoughts Identify and explore triggers to anxiety , and Learn and implement mindfulness and other calming skills to decrease anxiety (3) ITALO (acute kidney injury): Code(s): N17.9 - Acute kidney failure, unspecified Status: Acute Assessment and Plan: cause infection/dehydration. Creatinine 1.20 on admission, up to 1.4>1.2 Baseline appears to be 0.8-0.9 Avoid nephrotoxic drugs. Monitor antihypertensive drug therapy. Avoid NSAIDs. Routine CMP monitoring GFR 45 Monitor electrolytes especially potassium. Pharmacy does medications. Subjective Date/time seen: 09/29/23 09:54 Interval history: 62-year-old female with extensive medical history COPD, anxiety, depression, hyperlipidemia, chronic pain syndrome, was in the hospital about 3 weeks ago with extensive abdominal surgery workup and evaluation ileostomy bag was placed patient had a fistula which was addressed and also had hydronephrosis seen by Urology this time she comes in again with the similar complaints of abdominal pain and red stools, though patient reported that red in ostomy bag was cool-aid 09/29/23 Patient reports generalized pain to the lower abdomen, cramping. Discussed avoiding dilaudid since chronic pain. Scheduled bentyl Review of Systems Review of Systems: Abdominal cramping today, reports chronic nausea All systems reviewed & are unremarkable except as noted in HPI and below Exam Narrative: General: ill-appearing 62-year-old female, sitting up in bed, mild anxiety, tearful Neuro: awake, alert and oriented x4, speech clear, no focal neuro deficits noted HEENMT: normocephalic, atraumatic, EOMI, sclerae anicteric, moist oral mucosa Respiratory: Clear to auscultation bilaterally without crackles, rhonchi or wheezes, nonlabored breathing Cardio: regular rate, regular rhythm with S1-S2 Abdomen: nondistended, normoactive bowel sounds, soft, nontender to palpation, ostomy present with bag intact, normal stool Extremities: no edema, erythema, or tenderness to palpation, DP pulses 2+ bilateral
[2023-09-29] MEDS: ATORVASTATIN 40 MG TABLET PO (11:07)
[2023-09-29] MEDS: risperiDONE 0.5 MG TABLET PO (11:07)
[2023-09-29] MEDS: THIAMINE HCL 100 MG TABLET PO (11:07)
[2023-09-29] MEDS: DULoxetine HCL 20 MG CAPSULE.DR 40 MG PO (11:07)
[2023-09-29] MEDS: hydrOXYzine HCL 25 MG TABLET PO ×3 (11:07→21:02)
[2023-09-29] MEDS: PANTOPRAZOLE 40 MG TABLET PO (11:07)
[2023-09-29] MEDS: ASPIRIN 81 MG CHEWABLE TABLET PO (11:07)
[2023-09-29] MEDS: ASCORBIC ACID 500 MG TABLET PO (11:07)
[2023-09-29] MEDS: FOLIC ACID 1 MG TABLET PO (11:07)
[2023-09-29] MEDS: lamoTRIgine 100 MG TABLET PO ×2 (11:07→21:02)
[2023-09-29] MEDS: ONDANSETRON HCL ODT 4 MG TABLET PO (11:29)
[2023-09-29 15:33] VITALS: BP 131/65; PULSE 85; RESP 19; TEMP 36.6; O2SAT 99
[2023-09-29] MEDS: DICYCLOMINE HCL 10 MG CAPSULE 20 MG PO ×2 (16:33→21:02)
[2023-09-29] MEDS: GABAPENTIN 300 MG CAPSULE PO ×2 (16:33→21:02)
[2023-09-29 20:00] VITALS: PULSE 85; RESP 19; O2SAT 99
[2023-09-29] MEDS: MELATONIN 3 MG TABLET PO (21:02)
[2023-09-29] MEDS: AMOXICILLIN/CLAVULANATE K 500-125 MG TAB 1 TABLET PO (21:02)
[2023-09-29 23:33] VITALS: BP 129/62; PULSE 82; RESP 18; TEMP 36.6; O2SAT 99
[2023-09-30 05:28] LABS: Basophils Percent Auto 0.1 % (0.2-1.2); Eosinophils Absolute Auto 0.1 K/mm3 (0-0.3); Eosinophils Percent Auto 0.8 % (0-4.4); Hematocrit 28.1 % (37.0-47.0); Hemoglobin 8.9 g/dL (12.0-15.0); Immature Granulocyte Absolute 0.02 K/mm3 (0.00-0.031); Immature Granulocyte Percent A 0.3 % (0-0.5); Lymphocytes Absolute Auto 1.15 K/mm3 (0.9-3.2); Lymphocytes Percent Auto 15.3 % (18.3-44.2); Mean Corpuscular HGB Conc 31.7 g/dl (32-36); Mean Corpuscular Hemoglobin 26.9 pg (26-34); Mean Corpuscular Volume 84.9 fl (80-100); Mean Platelet Volume 9.5 fl (7.4-10.4); Monocytes Absolute Auto 0.7 K/mm3 (0.1-0.6); Monocytes Percent Auto 9.4 % (2.6-8.5); Neutrophils Absolute Auto 5.6 K/mm3 (1.3-6.7); Neutrophils Percent Auto 74.1 % (45.5-73.1); Platelet Count Result 173 k/mm3 (150-375); Red Blood Count 3.31 M/mm3 (4.2-5.4); Red Cell Distribution Width 15.1 % (11.5-14.5); White Blood Count 7.5 K/mm3 (4.5-10.0)
[2023-09-30 05:39] LABS: Alanine Aminotransferase 30 U/L (6-35); Albumin Level 3.2 g/dL (3.5-5.1); Alkaline Phosphatase 83 U/L (38-126); Anion Gap 6 mmol/L (4-12); Aspartate Amino Transferase 23 U/L (14-36); Bilirubin,Total 0.2 mg/dL (0.2-1.3); Blood Urea Nitrogen 24 mg/dL (7-17); Calcium 8.8 mg/dL (8.4-10.2); Carbon Dioxide 23 mmol/L (22-30); Chloride 108 mmol/L (98-107); Estimated CRCL calculation 31 ml/min; Estimated Glomerular Filt Rate 50; Glucose 116 mg/dL (65-110); Potassium 4.1 mmol/L (3.4-5.0); Sodium 137 mmol/L (137-145)
[2023-09-30 05:53] LABS: CRP 0.9 mg/dL (<1.0)
[2023-09-30 06:00] VITALS: BP 119/64; PULSE 76; RESP 20; TEMP 36.7; O2SAT 98
[2023-09-30 06:11] LABS: Erythrocyte Sedimentation Rate > 140 mm/hr (0-20)
[2023-09-30] MEDS: LEVOTHYROXINE SODIUM 50 MCG TABLET PO (06:16)
[2023-09-30] MEDS: FLUTICASONE/SALMETEROL 45-21 MCG INHALER 1 PUFF 2 PUFF INHALATION (07:00)
--- NOTE | 2023-09-30 08:39 | PM.IMPN ---
Progress Note: A&P Assessment and Plan (1) Intra-abdominal abscess: Code(s): K65.1 - Peritoneal abscess Status: Acute Assessment and Plan: S/p sigmoid colectomy, segmental small bowel resection with placement of end ileostomy from 02/2023. 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 IR drain was placed and has since been removed on 08/27. She was treated with IV antibiotics (meropenem), since transitioned to Augmentin. -Another intra-abdominal abscess, drained, but was on Zosyn. -Surgery consulted, appreciate recommendations. -p.r.n. [place] for pain -scheduled Bentyl for abdominal cramping and high-output ileostomy -All home meds have been restarted -blood cultures since admission, afebrile and has been Zosyn so would not be helpful to send this point. Reorder if new symptoms -Augmentin 500/125 q12 (doses for creatinine clearance) and monitor overnight. Will likely need at least a 3 week course with follow up imaging. Would benefit from ID follow up after discharge -Monitor blood pressure, did have some hypotension -Regular diet WBC 7.5 CRP, ESR: 0.9 & >140 (2) Anxiety and depression: Code(s): F41.9 - Anxiety disorder, unspecified; F32.A - Depression, unspecified Status: Chronic Assessment and Plan: Counseling, SCM Cymbalta, lamotrigine, hydroxyzine and risperidone, gabapentin relaxation therapy, and anti-anxiety medication as advised Patient hopes to reduce frequency/intensity of anxiety response Patient hopes to consistently use adaptive coping strategies to manage anxiety and panic , Patient hopes to eliminate avoidant behavior , Patient hopes to identify, challenge and modify negative, anxious and/or obsessive thoughts Identify and explore triggers to anxiety , and Learn and implement mindfulness and other calming skills to decrease anxiety (3) ITALO (acute kidney injury): Code(s): N17.9 - Acute kidney failure, unspecified Status: Acute Assessment and Plan: cause infection/dehydration. Creatinine 1.10 today Baseline appears to be 0.8-0.9 Avoid nephrotoxic drugs. Monitor antihypertensive drug therapy. Avoid NSAIDs. Routine CMP monitoring; GFR 50 today Monitor electrolytes especially potassium. Pharmacy does medications. Subjective Date/time seen: 09/30/23 08:39 Interval history: 62-year-old female with extensive medical history COPD, anxiety, depression, hyperlipidemia, chronic pain syndrome, was in the hospital about 3 weeks ago with extensive abdominal surgery workup and evaluation ileostomy bag was placed patient had a fistula which was addressed and also had hydronephrosis seen by Urology this time she comes in again with the similar complaints of abdominal pain and red stools, though patient reported that red in ostomy bag was cool-aid Review of Systems Review of Systems: All systems reviewed & are unremarkable except as noted in HPI and below Exam Narrative: General: ill-appearing 62-year-old female, sitting up in bed, mild anxiety, tearful Neuro: awake, alert and oriented x4, speech clear, no focal neuro deficits noted HEENMT: normocephalic, atraumatic, EOMI, sclerae anicteric, moist oral mucosa Respiratory: Clear to auscultation bilaterally without crackles, rhonchi or wheezes, nonlabored breathing Cardio: regular rate, regular rhythm with S1-S2 Abdomen: nondistended, normoactive bowel sounds, soft, nontender to palpation, ostomy present with bag intact, normal stool Extremities: no edema, erythema, or tenderness to palpation, DP pulses 2+ bilaterally Skin: no rashes or lesions, warm and dry Psych: appropriate mood and affect, judgment and insight intact Objective Data Vital Signs Vital Signs: Vital Signs - 24 hr 09/29/23 10:49 09/29/23 15:33 09/29/23 20:00 Temperature 97.9 F Pulse Rate 85 85 Respiratory Rate 19 19 Blood Pressure 131/
[2023-09-30] MEDS: ASPIRIN 81 MG CHEWABLE TABLET PO (08:45)
[2023-09-30] MEDS: DULoxetine HCL 20 MG CAPSULE.DR 40 MG PO (08:45)
[2023-09-30] MEDS: AMOXICILLIN/CLAVULANATE K 500-125 MG TAB 1 TABLET PO ×2 (08:45→21:02)
[2023-09-30] MEDS: ASCORBIC ACID 500 MG TABLET PO (08:45)
[2023-09-30] MEDS: hydrOXYzine HCL 25 MG TABLET PO ×4 (08:46→21:02)
[2023-09-30] MEDS: PANTOPRAZOLE 40 MG TABLET PO (08:46)
[2023-09-30] MEDS: DICYCLOMINE HCL 10 MG CAPSULE 20 MG PO ×4 (08:46→21:01)
[2023-09-30] MEDS: FOLIC ACID 1 MG TABLET PO (08:46)
[2023-09-30] MEDS: risperiDONE 0.5 MG TABLET PO (08:46)
[2023-09-30] MEDS: THIAMINE HCL 100 MG TABLET PO (08:46)
[2023-09-30] MEDS: lamoTRIgine 100 MG TABLET PO ×2 (08:46→21:02)
[2023-09-30] MEDS: GABAPENTIN 300 MG CAPSULE PO ×2 (08:47→18:12)
[2023-09-30] MEDS: ENOXAPARIN 40 MG/0.4 ML SYRINGE SUB-Q (08:49)
--- NOTE | 2023-09-30 11:02 | PCNFU ---
Nutrition Follow-Up Complete: Severe protein calorie malnutrition related to chronic altered GI function as evidenced by intakes <75% needs >1 month; severe muscle wasting and fat loss GOALS: Improve PO intake when diet is advanced - Progressing somewhat. Intakes vary from 0-75%, with 25% average last 48 hours. Appetite better this morning 75% breakfast. Continue same goals. Pt current nutrition is Regular diet. Ensure Enlive TID for additional 350 kcal and 20 g protein each. THrive nutritional ice cream for additional 270 kcal and 9 g protein each. Not taking much of supplements. Nutrition recommendation: No new nutrition recommendations. Continue with current diet orders and nutrition care plan. Last recorded weight is 42.7 kg. Bowel Motility: +1 BM 09/30/23. BMs are regular, per ileostomy Labs Reviewed: Hgb 8.9, Hct 28.1, Alb 3.2, GFR 50, BUN 24, Cre 1.1, Glu 116 Meds Noted: Vit C, Bentyl, Folic acid, thiamine, protonix, zofran Skin: No pressure injuries Additional Notes: Intakes remain poor which is patient's baseline during previous admissions. She does not really like supplements but occasionally will drink some Ensure or have some nutritional ice cream. Continue with current nutrition care plan aand orders. Agree with current orders Monitoring diet advancement, weights, labs, PO intake, plan of care Follow up in 3 days
--- NOTE | 2023-09-30 11:09 | PM.DS ---
DS: Admitting Diagnosis Discharge Date 09/30/23 Admitting Diagnosis abdominal pain DS: Discharge Diagnosis Discharge Diagnosis (1) Intra-abdominal abscess: Code(s): K65.1 - Peritoneal abscess Status: Acute Assessment and Plan: S/p sigmoid colectomy, segmental small bowel resection with placement of end ileostomy from 02/2023. 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 IR drain was placed and has since been removed on 08/27. She was treated with IV antibiotics (meropenem), since transitioned to Augmentin. -Another intra-abdominal abscess, drained, but was on Zosyn. -Surgery consulted, cleared for d/c without AB -con't Bentyl for abdominal cramping and high-output ileostomy -Would benefit from ID follow up after discharge -tolerating regular diet in small amounts. (2) Anxiety and depression: Code(s): F41.9 - Anxiety disorder, unspecified; F32.A - Depression, unspecified Status: Chronic Assessment and Plan: Counseling, SCM Cymbalta, lamotrigine, hydroxyzine and risperidone, gabapentin relaxation therapy, and anti-anxiety medication as advised Patient hopes to reduce frequency/intensity of anxiety response , Patient hopes to consistently use adaptive coping strategies to manage anxiety and panic , Patient hopes to eliminate avoidant behavior , Patient hopes to identify, challenge and modify negative, anxious and/or obsessive thoughts Identify and explore triggers to anxiety , and Learn and implement mindfulness and other calming skills to decrease anxiety (3) ITALO (acute kidney injury): Code(s): N17.9 - Acute kidney failure, unspecified Status: Acute Assessment and Plan: cause infection/dehydration. Creatinine 1.20 on admission; Baseline appears to be 0.8-0.9 creatinine 1.10 Avoid NSAIDs. Routine CMP monitoring GFR 50 today potassium stable DS: Summary Hospital Course Hospital Course: Patient is 62-year-old female with extensive medical history COPD, anxiety, depression, hyperlipidemia, chronic pain syndrome, was in the hospital about 3 weeks ago with extensive abdominal surgery workup and evaluation ileostomy bag was placed patient had a fistula which was addressed. General surgery was consulted, she had image guided aspiration of the left upper quadrant fluid collection. Fluid is showing no bacteria today. Surgery cleared for discharge without need for antibiotics at this time. Her ileostomy is draining dark-colored fluid. Patient is hesitant to go back to home when she is not happy there but this seems to be an ongoing issue. Care coordination will follow-up. Patient is otherwise stable for discharge today. Status at Discharge Functional status at discharge: uses cane/walker Overall status at discharge: patient is progressing back to baseline Time Spent with Patient Time attestation: Total time spent providing and/or coordinating discharge services: Exam Narrative: General: frail 62-year-old female, sitting up in bed, in no acute distress HEENMT: normocephalic, atraumatic, EOMI, PERRLA Respiratory: Lungs clear to auscultation bilaterally Cardio: RRR with S1-S2 Abdomen: nondistended, positive bowel sounds, soft, mildly tender to palpation on LUQ, ostomy present with bag intact, normal stool Extremities: no edema, erythema, or tenderness to palpation, DP pulses 2+ bilaterally Skin: no rashes or lesions, warm and dry Neuro: A&O x4, speech clear, no focal neuro deficits Psych: appropriate mood and affect DS: Data Data Completed and Pending Labs on day of discharge: Labs from last 24 hours 09/30/23 05:09 WBC 7.5 RBC 3.31 L Hgb 8.9 L Hct 28.1 L MCV 84.9 D MCH 26.9 MCHC 31.7 L RDW 15.1 H Plt Count 173 MPV 9.5 Immature Gran % (Auto) 0.3 Neut % (Auto) 74.1 H Lymph % (Auto) 15.3 L [place] % (Auto) 9.4 H Eos % (Auto) 0.8 Baso % (Auto) 0.1 L Lymph # (Auto) 1.15 [place] # (Auto) 0.7 H
[2023-09-30 14:00] VITALS: BP 130/58; PULSE 75; RESP 16; TEMP 36.7; O2SAT 99
[2023-09-30 15:10] LABS: SARS-CoV-2 RNA PCR Negative (Negative)
[2023-09-30 19:36] VITALS: BP 109/51; PULSE 92; RESP 20; TEMP 36.8; O2SAT 100
[2023-09-30 20:00] VITALS: PULSE 92; RESP 20; O2SAT 100
[2023-09-30] MEDS: HYDROcodone/acetaminophen (*CRX) 5-325 MG TABLET 1 TAB PO (21:02)
--- NOTE | 2023-10-11 13:01 | PC.NURSE ---
peritoneal fluid is negative.
== END 2023-09-30 22:15 | DRG 248 ==
LOC: ANHED 19:35 → ANH3MED 23:44
PROVIDERS: Nurse Practitioner; Nurse Practitioner Acute Care; Nurse Practitioner Family; Admitting Provider Internal Medicine; Emergency Provider Emergency Medicine; PCP Internal Medicine; Visit Provider Nurse Practitioner
DX: K65.1 Peritoneal abscess (principal); M60.08 Infective myositis, other site; N17.9 Acute kidney failure, unspecified; N13.30 Unspecified hydronephrosis; J44.9 Chronic obstructive pulmonary disease, unspecified; E78.5 Hyperlipidemia, unspecified; E03.9 Hypothyroidism, unspecified; K63.2 Fistula of intestine; K58.9 Irritable bowel syndrome, unspecified; M54.9 Dorsalgia, unspecified; G89.29 Other chronic pain; F32.9 Major depressive disorder, single episode, unspecified; F20.0 Paranoid schizophrenia; F41.1 Generalized anxiety disorder; Z93.2 Ileostomy status; Z11.52 Encounter for screening for COVID-19
CPT/HCPCS: 10160; 36415; 74177; 80053; 81003; 82274; 83690; 85025; 85027; 85610; 85652; 86140; 87070; 87075; 87205; 87635; 96361; 96365; 96374; 96375; 96376; 97110; 97161; 97530; 99285; A9270; G0378; G0379; J1170; J1650; J2405; J2543; J3010; J7030; Q9967

== ENCOUNTER 2023-12-08 09:22 | Inpatient (IN) | payer OTHER, SELFPAY ==
[2023-12-08] VITALS (17 sets, daily range): BP systolic 90–118; BP diastolic 46–75; PULSE 70–123; RESP 16–20; TEMP 36.5–36.9; O2SAT 96–100
--- NOTE | ~2023-12-08 | CT_ITS ---
EXAMINATION: CT brain wo con DATE: 12/08/2023 11:12 INDICATION: Confusion. TECHNIQUE: Computed tomography (CT) of the head was performed without intravenous contrast. The mA wa s adjusted according to patient size. Iterative reconstruction technique was employed. The dose-lengt h product was 605.33 mGy-cm. COMPARISON: Head CT 03/09/2023 FINDINGS: There is no intracranial hemorrhage, acute infarction, or abnormal intracranial mass lesion . The ventricles are normal in size. There is mild mucosal thickening in the paranasal sinuses. The o rbits are normal. The mastoid air cells are normal. IMPRESSION: 1. Normal brain. Reviewed, dictated and finalized at location A. IMPRESSION: 1. Normal brain.
--- NOTE | ~2023-12-08 | XR_ITS ---
EXAMINATION: XR chest 2V DATE: 12/08/2023 09:52 INDICATION: Weakness. TECHNIQUE: Frontal and lateral views of the chest were obtained. COMPARISON: Chest 2 views 08/13/2023, CT abdomen and pelvis 09/25/2023 FINDINGS: There is mild scarring at the lung apices. There are airspace opacities in left lower lobe. No pleural effusion or pneumothorax. The heart size is normal. IMPRESSION: 1. Airspace opacities in left lower lobe, consistent with atelectasis versus pneumonia. Reviewed, dictated and finalized at location A. IMPRESSION: 1. Airspace opacities in left lower lobe, consistent with atelectasis versus pn eumonia.
--- NOTE | 2023-12-08 09:25 | ECG_ITS ---
Test Date: 2023-12-08 09:31:35 Measurements Intervals [place] Rate: 123 P: 71 CO: 149 QRS: 80 QRSD: 81 T: 70 QT: 290 QTc: 416 Interpretive Statements SINUS TACHYCARDIA ABNORMAL ECG Compared to ECG 08/17/2023 21:01:49 HEART RATE HAS INCREASED Electronically Signed On 12-08-2023 12:19:52 CDT by Jimmy Maynard D.O.
[2023-12-08 09:33] LABS: Glucose Point of Care 93 mg/dl (65-105)
[2023-12-08] MEDS: SODIUM CHLORIDE 0.9% IV 1,000 ML 999 ML IV CONT ×2 (10:27→14:14)
[2023-12-08 10:34] LABS: Basophils Percent Auto 0.1 % (0.2-1.2); Hemoglobin 10.5 g/dL (12.0-15.0); Immature Granulocyte Absolute 0.08 K/mm3 (0.00-0.031); Immature Granulocyte Percent A 0.5 % (0-0.5); Lymphocytes Absolute Auto 0.54 K/mm3 (0.9-3.2); Lymphocytes Percent Auto 3.7 % (18.3-44.2); Mean Corpuscular HGB Conc 33.9 g/dl (32-36); Mean Corpuscular Hemoglobin 27.9 pg (26-34); Mean Corpuscular Volume 82.2 fl (80-100); Mean Platelet Volume 10.9 fl (7.4-10.4); Monocytes Absolute Auto 1.3 K/mm3 (0.1-0.6); Monocytes Percent Auto 8.7 % (2.6-8.5); Neutrophils Absolute Auto 12.9 K/mm3 (1.3-6.7); Platelet Count Result 176 k/mm3 (150-375); Red Blood Count 3.77 M/mm3 (4.2-5.4); Red Cell Distribution Width 14.2 % (11.5-14.5); White Blood Count 14.8 K/mm3 (4.5-10.0)
[2023-12-08 10:48] LABS: Alanine Aminotransferase 30 U/L (6-35); Albumin Level 4.2 g/dL (3.5-5.1); Alkaline Phosphatase 120 U/L (38-126); Anion Gap 10 mmol/L (4-12); Aspartate Amino Transferase 38 U/L (14-36); Bilirubin,Total 0.5 mg/dL (0.2-1.3); Blood Urea Nitrogen 40 mg/dL (7-17); Calcium 9.4 mg/dL (8.4-10.2); Carbon Dioxide 14 mmol/L (22-30); Chloride 103 mmol/L (98-107); Estimated CRCL calculation 24 ml/min; Estimated Glomerular Filt Rate 32; Glucose 98 mg/dL (65-110); Potassium 4.2 mmol/L (3.4-5.0); Sodium 127 mmol/L (137-145)
--- NOTE | 2023-12-08 11:01 | PC.NURSE ---
Pt to CT via stretcher on tele and O2 monitor at this time
--- NOTE | 2023-12-08 11:13 | ED.FALL ---
HPI - Fall General Chief Complaint: Fall Stated Complaint: fall/weakness Time Seen by Provider: 12/08/23 09:58 History of Present Illness HPI Narrative: Patient is a 63-year-old female who presents to the emergency department this morning complaining of generalized weakness and recurrent falls at her correction. Patient states she has been generally weak for the past few days and feels as though she has no energy. Denies hitting her on any of the falls. Patient is currently alert and oriented to person, place, time and situation and answering all of the questions appropriately. Denies any chest pain or shortness of breath but admits that she has been having a productive cough recently and admits to history of COPD. Patient denies any fevers or chills. Patient is moving all 4 extremities spontaneously and without any difficulty. Related Data Home Medications Medication Instructions Recorded Confirmed acetaminophen 325 mg tablet 650 mg PO Q4-6H PRN Pain 03/09/23 09/26/23 albuterol sulfate 90 mcg/actuation 2 puff inhalation Q4-6H PRN 03/09/23 09/26/23 aerosol inhaler Shortness Of Breath Or Wheezing gabapentin 300 mg capsule 300 mg PO HS 03/09/23 09/26/23 lamotrigine 100 mg tablet 100 mg PO BID 03/09/23 09/26/23 levothyroxine 50 mcg tablet 50 mcg PO DAILY 03/09/23 09/26/23 omeprazole 10 mg capsule,delayed 10 mg PO DAILY 03/09/23 09/26/23 release Adult One Daily Multivitamin 1 tablet PO DAILY 08/14/23 09/26/23 ascorbic acid (vitamin C) 500 mg 500 mg PO DAILY 08/14/23 09/26/23 tablet duloxetine 20 mg capsule,delayed 40 mg PO DAILY 08/14/23 09/26/23 release (Cymbalta) fluticasone 100 mcg-salmeterol 50 2 ea inhalation BID 08/14/23 09/26/23 mcg/dose blistr powdr for inhalation (Advair Diskus) folic acid 1 mg tablet 1 mg PO DAILY 08/14/23 09/26/23 hydroxyzine HCl 25 mg tablet 25 mg PO QID 08/14/23 09/26/23 loperamide 2 mg capsule 2 mg PO TID PRN Diarrhea 08/14/23 09/26/23 melatonin 3 mg tablet 3 mg PO HS 08/14/23 09/26/23 ondansetron 4 mg disintegrating 4 mg PO Q6H PRN Nausea 08/14/23 09/26/23 tablet polyethylene glycol 3350 17 17 g PO DAILY PRN Constipation 08/14/23 09/26/23 gram/dose oral powder (Miralax) risperidone 0.5 mg tablet 0.5 mg PO DAILY 08/14/23 09/26/23 thiamine HCl (vitamin B1) 100 mg 100 mg PO DAILY 08/14/23 09/26/23 tablet tolnaftate 1 % topical powder 1 applic topical Q12HR PRN Rash 08/14/23 09/26/23 paliperidone palmitate 156 mg/mL 156 mg IM MONTHLY 09/26/23 09/26/23 intramuscular syringe sodium zirconium cyclosilicate 10 10 g PO DAILY 09/26/23 09/26/23 gram oral powder packet Allergies Allergy/AdvReac Type Severity Reaction Status Date / Time morphine Allergy Unknown Verified 12/08/23 09:44 Sulfa (Sulfonamide Allergy Unknown Verified 12/08/23 09:44 Antibiotics) Review of Systems Review of Systems: All systems are reviewed and are negative unless stated otherwise in the HPI. [facility] Past Medical History Medical History Borderline personality disorder Chronic back pain COPD (chronic obstructive pulmonary disease) ERIKA (generalized anxiety disorder) History of MRSA infection With MRSA screen 08/13/2023 being negative HLD (hyperlipidemia) Hypothyroid IBS (irritable bowel syndrome) MDD (major depressive disorder) Paranoid schizophrenia Surgical History Surgical History History of abdominal surgery February 2023 - subtotal colectomy for necrotic colon and fascia was left open with bowel discontinuity due to deterioration and she was hemodynamically unstable - taken back to the OR for second-look laparotomy, small bowel resection, creation end ileostomy, fascia was closed History of x2 History of cholecystectomy Family History Family History Other Heart attack Social History Social H
--- NOTE | 2023-12-08 12:10 | PM.IMHP ---
H&P: HPI History of Present Illness Date/Time: 12/08/23 12:10 Chief Complaint: Fall Narrative: 63 y/o F presents here with ground-level fall with PMH of borderline personality disorder, COPD, ERIKA, HLD, hypothyroidism, IBS, MDD, and schizophrenia. The patient presents here from [place] via EMS with for evaluation post ground level fall. Fall was precipitated by generalized weakness and lethargy over the last week. Generalized weakness has led to increased falls. The patient estimates that she falls a few times per week at baseline but has been falling a few times per day in the last week. Has had 3 in the last 24 hours. Most recent fall occurred this morning while she was trying to get out of bed. The patient tried to lean against the wall but fell towards the table. Fell onto her right leg. Unsure if she sustained a head strike, but has a headache. Denies loss of consciousness. The patient reports a chronic productive cough related to COPD with chest wall discomfort that only occurs with cough or very deep inspiration. Patient reports urinary frequency without dysuria or hematuria. +chills, tachycardia, and body aches. Denies associated chest pain, shortness of breath, or fever. Denies nausea, vomiting, abdominal pain, or changes in output from ostomy. Initial VS at presentation: 98.4? F, HR 123, RR 16, 118/59, and 97% on RA. ED workup showed: WBC 14.8, hemoglobin 10.5 (previously 0.9 on 09/30/2023), sodium 127, creatinine 1.6 and GFR 32 (previously 1.1 and GFR 50 on 09/30/2023). CXR showed airspace opacities in left lower lobe (atelectasis versus pneumonia). Head CT showed normal brain. Review of Systems Review of Systems: All systems reviewed & are unremarkable except as noted in HPI and below PMFSH Past Medical History Medical History Borderline personality disorder Chronic back pain COPD (chronic obstructive pulmonary disease) ERIKA (generalized anxiety disorder) History of MRSA infection With MRSA screen 08/13/2023 being negative HLD (hyperlipidemia) Hypothyroid IBS (irritable bowel syndrome) MDD (major depressive disorder) Paranoid schizophrenia Surgical History Surgical History History of abdominal surgery February 2023 - subtotal colectomy for necrotic colon and fascia was left open with bowel discontinuity due to deterioration and she was hemodynamically unstable - taken back to the OR for second-look laparotomy, small bowel resection, creation end ileostomy, fascia was closed History of x2 History of cholecystectomy Family History Family History Other Heart attack Social History Social History Social History: Was resident at [facility] ([phone]), previously at [facility] in [place], [place] ([phone]). After her prolonged hospitalization February through March the patient was discharged to [facility]. Code status: Full Code per EMR however the patient's state resuscitation form states that she wants to be a full code but then confusing the matter the box regarding comfort based treatment is also marked. This will need to be clarified with the patient and her daughter. Surrogate decision maker: Camille Weinberg (daughter) Years smoked: 30 Smoking status: Current every day smoker Tobacco type: cigarettes Alcohol intake: never Substance use: never Substance use type: does not use Do You Feel Safe in your Home?: Yes Lack of Transportation: No Lack of Food: Never True Current Housing: I Have Housing Concerned About Future Housing: No Difficulty Paying Gas/Electric Bills: No Difficulty Paying for Meds: No Currently Unemployed: No Education: Don't Know Difficulty w/ Childcare or Family Care: No Spiritual care
--- NOTE | 2023-12-08 12:20 | PC.NURSE ---
Unable to obtain blood cultures or lactic acid. Debt And Budget Counselor called
[2023-12-08 12:45] LABS: Add Urine Microscopic? YES; Appearance Urine Clear (Clear); Bacteria Urine None Seen /hpf; Bilirubin Urine Negative (Negative); Blood Urine 1+ (Negative); Color Urine Yellow (Yellow); Glucose Urine UA Negative (Negative); Ketones Urine Negative (Negative); Leukocyte Esterase Ur Negative LEU/UL (Negative); Nitrate Urine Negative (Negative); Protein Urine 1+ mg/dL (Negative); RBC Urine 0-2 /hpf (0-2); Specific Grav Ur 1.011 (1.001-1.035); Squamous Epithelial Cell Urine None Seen /hpf (Few); Urobilinogen Urine 0.2 mg/dL (<2.0); WBC Urine 0-5 /hpf (0-3); pH Urine 5.5 (5.0-9.0)
[2023-12-08] MEDS: ACETAMINOPHEN 325 MG TABLET 650 MG PO (12:56)
[2023-12-08 13:23] LABS: Procalcitonin 1.8 ng/mL
--- NOTE | 2023-12-08 13:25 | ADMGEN ---
This patient, Jeanne Fragoso, was admitted to Medical Room 348-01. Patient/family oriented to hospital policies and general routines including ID bracelet, bed and alarms, visiting hours, pain management, procedures, bathroom and other care routines, personal items, smoking policy, room service/diet, and visiting hours. Information on how to activate the Rapid Response Team has been discussed. Patient/Family are encouraged to report perceived risks to care and to ask questions if they do not understand what they are told or what they should do.
--- NOTE | 2023-12-08 13:29 | PC.NURSE ---
Attempted to contact [facility] multiple times at to provide update regarding pt admission to the hospital. Received no answer
[2023-12-08 13:38] LABS: Thyroid Stimulating Hormone Reflex 0.296 uIU/mL (0.465-4.68)
[2023-12-08 13:43] LABS: Lactic Acid Reflex 0.7 mmol/L (0.7-2.0)
[2023-12-08] MEDS: guaiFENesin 12 HR 600 MG TABCR PO ×2 (14:14→20:35)
[2023-12-08] MEDS: IPRATROPIUM 0.5 MG/ALBUTEROL SULFATE 2.5 MG AMPUL.NEB 3 ML NEBULIZE ×2 (14:16→20:49)
[2023-12-08 17:12] LABS: Sodium Urine Random 6 meq/L
[2023-12-08 17:13] LABS: Creatinine Urine 43.2 mg/dL; Total Protein Urine Random 64 mg/dL; Ur Ttl Prot Creatinine Ratio 1.48 mg/mg (0-0.20)
[2023-12-08] MEDS: SODIUM CHLORIDE 0.9% IV 1,000 ML 150 ML IV CONT (17:43)
[2023-12-08] MEDS: lamoTRIgine 100 MG TABLET PO (17:49)
[2023-12-08] MEDS: AZITHROMYCIN 500 MG/NS 250 ML 500 MG/250 ML BAG 250 MG IVPB (18:41)
[2023-12-08 20:19] LABS: Free T4 Free Thyroxine Reflex 0.85 ng/dL (0.78-2.19)
[2023-12-08] MEDS: GABAPENTIN 300 MG CAPSULE PO (20:34)
[2023-12-08] MEDS: hydrOXYzine HCL 25 MG TABLET PO (20:34)
[2023-12-08] MEDS: MELATONIN 5 MG TABLET PO (20:35)
[2023-12-08] MEDS: FLUTICASONE/SALMETEROL 45-21 MCG INHALER 1 PUFF 2 PUFF INHALATION (20:49)
[2023-12-08 20:55] LABS: Glucose Point of Care 144 mg/dl (65-105)
[2023-12-08 22:59] LABS: Total Triiodothyronine (T3) 1.26 NG/ML (0.97-1.69)
[2023-12-09] VITALS (16 sets, daily range): BP systolic 92–97; BP diastolic 44–55; PULSE 102–125; RESP 16–20; TEMP 36.2–37.2; O2SAT 96–98
[2023-12-09] MEDS: IPRATROPIUM 0.5 MG/ALBUTEROL SULFATE 2.5 MG AMPUL.NEB 3 ML NEBULIZE ×3 (02:22→14:16)
[2023-12-09] MEDS: LEVOTHYROXINE SODIUM 50 MCG TABLET PO (05:42)
[2023-12-09 05:46] LABS: Basophils Percent Auto 0.1 % (0.2-1.2); Eosinophils Percent Auto 0.1 % (0-4.4); Hematocrit 24.2 % (37.0-47.0); Hemoglobin 7.8 g/dL (12.0-15.0); Immature Granulocyte Absolute 0.05 K/mm3 (0.00-0.031); Immature Granulocyte Percent A 0.5 % (0-0.5); Lymphocytes Absolute Auto 1.07 K/mm3 (0.9-3.2); Lymphocytes Percent Auto 10.1 % (18.3-44.2); Mean Corpuscular HGB Conc 32.2 g/dl (32-36); Mean Corpuscular Hemoglobin 27.4 pg (26-34); Mean Corpuscular Volume 84.9 fl (80-100); Mean Platelet Volume 10.6 fl (7.4-10.4); Monocytes Percent Auto 9.7 % (2.6-8.5); Neutrophils Absolute Auto 8.4 K/mm3 (1.3-6.7); Neutrophils Percent Auto 79.5 % (45.5-73.1); Platelet Count Result 147 k/mm3 (150-375); Red Blood Count 2.85 M/mm3 (4.2-5.4); Red Cell Distribution Width 14.6 % (11.5-14.5); White Blood Count 10.6 K/mm3 (4.5-10.0)
[2023-12-09 06:17] LABS: Alanine Aminotransferase 22 U/L (6-35); Albumin Level 2.8 g/dL (3.5-5.1); Alkaline Phosphatase 75 U/L (38-126); Anion Gap 7 mmol/L (4-12); Aspartate Amino Transferase 43 U/L (14-36); Bilirubin,Total 0.1 mg/dL (0.2-1.3); Blood Urea Nitrogen 22 mg/dL (7-17); Calcium 7.5 mg/dL (8.4-10.2); Carbon Dioxide 11 mmol/L (22-30); Chloride 112 mmol/L (98-107); Estimated CRCL calculation 32 ml/min; Estimated Glomerular Filt Rate 45; Glucose 155 mg/dL (65-110); Potassium 3.2 mmol/L (3.4-5.0); Sodium 130 mmol/L (137-145)
--- NOTE | 2023-12-09 07:52 | PM.IMPN ---
Progress Note: A&P Assessment and Plan (1) Sepsis: Qualifiers: Sepsis acute organ dysfunction status: without acute organ dysfunction Sepsis type: sepsis due to unspecified organism Qualified Code(s): A41.9 - Sepsis, unspecified organism Code(s): A41.9 - Sepsis, unspecified organism Status: Acute Assessment and Plan: - meets SIRS criteria: HR, WBC, hypotension. No hypoxia. - lactic acid 0.7 and procal 1.8 - 30 mL/kg = 1400, given 1L bolus. Post-bolus still appears mildly dry on exam, 2nd bolus ordered -> 150 mL/hour. - suspected source: Pneumonia - started on ceftriaxone and azithromycin on 12/07 - blood cultures drawn on 12/07, follow-up - UA showed 1+ protein and 1+ blood - CXR: Airspace opacity in the left lower lobe - monitor hemodynamic stability and oxygen saturation 12/09/2023: - Patient hypotensive, 90s/60s. Tachycardic into 120s. Given 500 ml bolus. Remains systolic 90s. Started on IV fluids. (2) Pneumonia: Qualifiers: Laterality: left Lung location: lower lobe of lung Pneumonia type: due to unspecified organism Qualified Code(s): J18.9 - Pneumonia, unspecified organism Code(s): J18.9 - Pneumonia, unspecified organism Status: Suspected Assessment and Plan: - CXR concerning for left lower lobe pneumonia - risk factors and complicating factors: Sepsis, COPD, skilled nursing resident - started on CAP tx: ceftriaxone and azithromycin - MRSA PCR negative - Viral PCR negative - sputum culture ordered - no current supplemental O2 requirement - supportive care (3) ITALO (acute kidney injury): Code(s): N17.9 - Acute kidney failure, unspecified Status: Acute Assessment and Plan: - creatinine 1.6 and GFR 32 on admission, baseline creatinine appears to be 1.1-1.4 - BUN/Cr 22/1.2 on am labs - IV fluids - trend renal function - trend electrolytes, correct as needed - avoid nephrotoxic medications - renally dose medications (4) Acute hyponatremia: Code(s): E87.1 - Hypo-osmolality and hyponatremia Status: Acute Assessment and Plan: - Na 127 on admission, now 130 on am labs - add serum osmolality, urine osmolality. urine sodium, protein to creatinine ratio, urine creatinine - trend, started on NS infusion (5) Frequent falls: Code(s): R29.6 - Repeated falls Status: Acute Assessment and Plan: - fall precautions - suspect new weakness combination of PNA and hyponatremia. Abx and NS initiated - consider PT evaluation if weakness does not improve with current treatment plan (6) Anemia: Qualifiers: Anemia type: unspecified type Qualified Code(s): D64.9 - Anemia, unspecified Code(s): D64.9 - Anemia, unspecified Status: Chronic Assessment and Plan: - chronic normocytic anemia. suspect anemia of chronic disease (COPD v CKD or combination thereof) - TIBC, iron, and %saturation WNL in August of 2023, transferrin low at 128. Ordered. - folate > 20 and B12 WNL in August of 2023. Ordered. (7) COPD (chronic obstructive pulmonary disease): Qualifiers: COPD type: unspecified COPD Qualified Code(s): J44.9 - Chronic obstructive pulmonary disease, unspecified Code(s): J44.9 - Chronic obstructive pulmonary disease, unspecified Status: Chronic Assessment and Plan: Chronic, does not appear to be in acute exacerbation. - DuoNebs PRN Plan Diet: Regular GI Prophylaxis: Not currently indicated DVT Prophylaxis: SCDs Lines: Peripheral Code Status: Full code Time Spent With Patient Time with patient: 25 - 35 minutes Subjective Date/time seen: 12/09/23 07:52 Interval history: 63 year old female with past medical history of COPD, anxiety/depression, borderline personality disorder, hypothyroidism, hyperlipidemia, chronic pain syndrome presents to the hospital from [place] for a ground level fall. Patient is plea
[2023-12-09] MEDS: FLUTICASONE/SALMETEROL 45-21 MCG INHALER 1 PUFF 2 PUFF INHALATION (08:46)
[2023-12-09] MEDS: MULTIVITAMINS THERAPEUTIC TAB (*BKC) 1 TABLET PO (09:01)
[2023-12-09] MEDS: lamoTRIgine 100 MG TABLET PO ×2 (09:01→17:24)
[2023-12-09] MEDS: ASCORBIC ACID 500 MG TABLET PO (09:01)
[2023-12-09] MEDS: guaiFENesin 12 HR 600 MG TABCR PO ×2 (09:01→20:26)
[2023-12-09] MEDS: ATORVASTATIN 40 MG TABLET PO (09:01)
[2023-12-09] MEDS: THIAMINE HCL 100 MG TABLET PO (09:01)
[2023-12-09] MEDS: POTASSIUM CHLORIDE 20 MEQ ER TABLET 40 MEQ PO (09:01)
[2023-12-09] MEDS: hydrOXYzine HCL 25 MG TABLET PO ×4 (09:01→20:26)
[2023-12-09] MEDS: FOLIC ACID 1 MG TABLET PO (09:01)
[2023-12-09] MEDS: ASPIRIN 81 MG CHEWABLE TABLET PO (09:02)
[2023-12-09] MEDS: SODIUM CHLORIDE 0.9% IV 500 ML IV CONT (09:02)
[2023-12-09] MEDS: DULoxetine HCL 20 MG CAPSULE.DR 40 MG PO (09:02)
[2023-12-09] MEDS: PANTOPRAZOLE SOD SESQUIHYDRATE 20 MG TAB PO (09:03)
[2023-12-09] MEDS: risperiDONE 0.5 MG TABLET PO (09:03)
[2023-12-09] MEDS: SODIUM ZIRCONIUM CYCLOSILICATE 10 GM POWD.PACK PO (09:03)
[2023-12-09 10:31] LABS: Influenza A QL RT-PCR Negative (Negative); Influenza B QL RT-PCR Negative (Negative); RSV RNA, RT-PCR Negative (Negative); SARS-CoV-2 RNA PCR Negative (Negative)
[2023-12-09 11:08] LABS: MRSA (PCR) NOT DETECTED (NOT DETECTE)
[2023-12-09] MEDS: SODIUM CHLORIDE 0.9% IV 1,000 ML 75 ML IV CONT (13:19)
--- NOTE | 2023-12-09 15:21 | ECG_ITS ---
Test Date: 2023-12-09 16:12:40 Measurements Intervals [place] Rate: 102 P: 69 WY: 152 QRS: 73 QRSD: 77 T: 70 QT: 331 QTc: 433 Interpretive Statements SINUS TACHYCARDIA WITH OCCASIONAL SUPRAVENTRICULAR PREMATURE COMPLEXES BORDERLINE ECG Compared to ECG 12/08/2023 09:31:35 No significant changes Electronically Signed On 12-09-2023 18:46:39 CDT by Jimmy Maynard D.O.
[2023-12-09] MEDS: GABAPENTIN 300 MG CAPSULE PO (20:25)
[2023-12-09] MEDS: MELATONIN 5 MG TABLET PO (20:26)
[2023-12-10] VITALS (18 sets, daily range): BP systolic 103–122; BP diastolic 46–62; PULSE 96–120; RESP 16–20; TEMP 36.2–36.8; O2SAT 93–98
[2023-12-10] MEDS: IPRATROPIUM 0.5 MG/ALBUTEROL SULFATE 2.5 MG AMPUL.NEB 3 ML NEBULIZE ×4 (02:09→19:26)
[2023-12-10] MEDS: SODIUM CHLORIDE 0.9% IV 1,000 ML 75 ML IV CONT ×2 (04:54→13:57)
[2023-12-10] MEDS: LEVOTHYROXINE SODIUM 50 MCG TABLET PO (04:54)
[2023-12-10 06:29] LABS: Basophils Percent Auto 0.1 % (0.2-1.2); Eosinophils Percent Auto 0.5 % (0-4.4); Hematocrit 24.8 % (37.0-47.0); Hemoglobin 8.1 g/dL (12.0-15.0); Immature Granulocyte Absolute 0.04 K/mm3 (0.00-0.031); Immature Granulocyte Percent A 0.5 % (0-0.5); Lymphocytes Absolute Auto 0.69 K/mm3 (0.9-3.2); Mean Corpuscular HGB Conc 32.7 g/dl (32-36); Mean Corpuscular Hemoglobin 27.7 pg (26-34); Mean Corpuscular Volume 84.9 fl (80-100); Mean Platelet Volume 10.8 fl (7.4-10.4); Monocytes Absolute Auto 0.8 K/mm3 (0.1-0.6); Monocytes Percent Auto 10.3 % (2.6-8.5); Neutrophils Absolute Auto 6.1 K/mm3 (1.3-6.7); Neutrophils Percent Auto 79.6 % (45.5-73.1); Platelet Count Result 173 k/mm3 (150-375); Red Blood Count 2.92 M/mm3 (4.2-5.4); White Blood Count 7.7 K/mm3 (4.5-10.0)
[2023-12-10 06:43] LABS: Alanine Aminotransferase 26 U/L (6-35); Albumin Level 2.8 g/dL (3.5-5.1); Alkaline Phosphatase 83 U/L (38-126); Anion Gap 7 mmol/L (4-12); Aspartate Amino Transferase 43 U/L (14-36); Bilirubin,Total 0.2 mg/dL (0.2-1.3); Blood Urea Nitrogen 15 mg/dL (7-17); Calcium 8.3 mg/dL (8.4-10.2); Carbon Dioxide 15 mmol/L (22-30); Chloride 112 mmol/L (98-107); Estimated CRCL calculation 30 ml/min; Estimated Glomerular Filt Rate 41; Glucose 91 mg/dL (65-110); Potassium 4.2 mmol/L (3.4-5.0); Sodium 134 mmol/L (137-145)
[2023-12-10 06:44] LABS: Iron 21 ug/dL (37-170)
[2023-12-10 06:53] LABS: Percent Iron Saturation 10 % (20-50)
[2023-12-10] MEDS: FLUTICASONE/SALMETEROL 45-21 MCG INHALER 1 PUFF 2 PUFF INHALATION ×2 (07:29→19:26)
[2023-12-10 07:47] LABS: Folic Acid > 20.0 ng/mL (2.76->20)
--- NOTE | 2023-12-10 08:09 | PM.IMPN ---
Progress Note: A&P Assessment and Plan (1) Sepsis: Qualifiers: Sepsis acute organ dysfunction status: without acute organ dysfunction Sepsis type: sepsis due to unspecified organism Qualified Code(s): A41.9 - Sepsis, unspecified organism Code(s): A41.9 - Sepsis, unspecified organism Status: Acute Assessment and Plan: - meets SIRS criteria: HR, WBC, hypotension. No hypoxia. - lactic acid 0.7 and procal 1.8 - 30 mL/kg = 1400, given 1L bolus. Post-bolus still appears mildly dry on exam, 2nd bolus ordered -> 150 mL/hour. - suspected source: Pneumonia - started on ceftriaxone and azithromycin on 12/07 - blood cultures drawn on 12/07, follow-up - UA showed 1+ protein and 1+ blood - CXR: Airspace opacity in the left lower lobe - monitor hemodynamic stability and oxygen saturation 12/09/2023: - Patient hypotensive, 90s/60s. Tachycardic into 120s. Given 500 ml bolus. Remains systolic 90s. Started on IV fluids. 12/09: - Patients BP remains stable. She is still tachycardic into the 120s despite a beta sagar trial. (2) Pneumonia: Qualifiers: Laterality: left Lung location: lower lobe of lung Pneumonia type: due to unspecified organism Qualified Code(s): J18.9 - Pneumonia, unspecified organism Code(s): J18.9 - Pneumonia, unspecified organism Status: Suspected Assessment and Plan: - CXR concerning for left lower lobe pneumonia - risk factors and complicating factors: Sepsis, COPD, prison resident - started on CAP tx: ceftriaxone and azithromycin - MRSA PCR negative - Viral PCR negative - sputum culture ordered - no current supplemental O2 requirement - supportive care (3) ITALO (acute kidney injury): Code(s): N17.9 - Acute kidney failure, unspecified Status: Acute Assessment and Plan: - creatinine 1.6 and GFR 32 on admission, baseline creatinine appears to be 1.1-1.4 - BUN/Cr 15/1.3 on am labs - IV fluids - trend renal function - trend electrolytes, correct as needed - avoid nephrotoxic medications - renally dose medications (4) Acute hyponatremia: Code(s): E87.1 - Hypo-osmolality and hyponatremia Status: Acute Assessment and Plan: - Na 127 on admission, now 134 on am labs - add serum osmolality, urine osmolality. urine sodium, protein to creatinine ratio, urine creatinine - trend, started on NS infusion (5) Frequent falls: Code(s): R29.6 - Repeated falls Status: Acute Assessment and Plan: - fall precautions - suspect new weakness combination of PNA and hyponatremia. Abx and NS initiated - consider PT evaluation if weakness does not improve with current treatment plan (6) Anemia: Qualifiers: Anemia type: unspecified type Qualified Code(s): D64.9 - Anemia, unspecified Code(s): D64.9 - Anemia, unspecified Status: Chronic Assessment and Plan: - chronic normocytic anemia. suspect anemia of chronic disease (COPD v CKD or combination thereof) - Iron 21, TIBC 201, % sat 10. Started on iron supplementation - B12 and Folate WNL (7) COPD (chronic obstructive pulmonary disease): Qualifiers: COPD type: unspecified COPD Qualified Code(s): J44.9 - Chronic obstructive pulmonary disease, unspecified Code(s): J44.9 - Chronic obstructive pulmonary disease, unspecified Status: Chronic Assessment and Plan: Chronic, does not appear to be in acute exacerbation. - DuoNebs PRN Plan Diet: Regular GI Prophylaxis: Not currently indicated DVT Prophylaxis: SCDs Lines: Peripheral Code Status: Full code Time Spent With Patient Time with patient: 25 - 35 minutes Subjective Date/time seen: 12/10/23 08:09 Interval history: 63 year old female with past medical history of COPD, anxiety/depression, borderline personality disorder, hypothyroidism, hyperlipidemia, chronic pain syndrome [facility]
[2023-12-10] MEDS: DULoxetine HCL 20 MG CAPSULE.DR 40 MG PO (09:13)
[2023-12-10] MEDS: guaiFENesin 12 HR 600 MG TABCR PO ×2 (09:13→20:57)
[2023-12-10] MEDS: risperiDONE 0.5 MG TABLET PO (09:13)
[2023-12-10] MEDS: PANTOPRAZOLE SOD SESQUIHYDRATE 20 MG TAB PO (09:13)
[2023-12-10] MEDS: ASCORBIC ACID 500 MG TABLET PO (09:13)
[2023-12-10] MEDS: THIAMINE HCL 100 MG TABLET PO (09:13)
[2023-12-10] MEDS: FERROUS SULFATE 325 MG TABLET DR PO ×2 (09:13→15:58)
[2023-12-10] MEDS: lamoTRIgine 100 MG TABLET PO ×2 (09:13→15:58)
[2023-12-10] MEDS: MULTIVITAMINS THERAPEUTIC TAB (*BKC) 1 TABLET PO (09:13)
[2023-12-10] MEDS: ATORVASTATIN 40 MG TABLET PO (09:13)
[2023-12-10] MEDS: FOLIC ACID 1 MG TABLET PO (09:13)
[2023-12-10] MEDS: ASPIRIN 81 MG CHEWABLE TABLET PO (09:13)
[2023-12-10] MEDS: hydrOXYzine HCL 25 MG TABLET PO ×4 (09:13→20:57)
[2023-12-10] MEDS: METOPROLOL TARTRATE 6.25 MG TABLET PO (13:53)
[2023-12-10 15:24] LABS: Osmolality, Urine 347 mOsm/kg (50-1200)
[2023-12-10] MEDS: ACETAMINOPHEN 325 MG TABLET 650 MG PO (15:59)
[2023-12-10] MEDS: ONDANSETRON HCL ODT 4 MG TABLET PO (15:59)
[2023-12-10] MEDS: GABAPENTIN 300 MG CAPSULE PO (20:57)
[2023-12-10] MEDS: MELATONIN 5 MG TABLET PO (20:57)
[2023-12-11] VITALS (19 sets, daily range): BP systolic 115–145; BP diastolic 42–78; PULSE 92–135; RESP 16–24; TEMP 36.4–37.1; O2SAT 91–98
[2023-12-11] MEDS: SODIUM CHLORIDE 0.9% IV 1,000 ML 75 ML IV CONT (02:41)
[2023-12-11] MEDS: ONDANSETRON HCL ODT 4 MG TABLET PO ×2 (02:42→21:38)
[2023-12-11] MEDS: LEVOTHYROXINE SODIUM 50 MCG TABLET PO (05:22)
[2023-12-11 05:49] LABS: Alanine Aminotransferase 36 U/L (6-35); Alkaline Phosphatase 90 U/L (38-126); Aspartate Amino Transferase 43 U/L (14-36); Bilirubin,Total 0.3 mg/dL (0.2-1.3); Blood Urea Nitrogen 17 mg/dL (7-17); Carbon Dioxide 11 mmol/L (22-30); Chloride 98 mmol/L (98-107); Estimated CRCL calculation 32 ml/min; Estimated Glomerular Filt Rate 45; Glucose 85 mg/dL (65-110); Potassium 4.2 mmol/L (3.4-5.0)
[2023-12-11 06:07] LABS: Anion Gap 26 mmol/L (4-12); Sodium 135 mmol/L (137-145)
[2023-12-11 06:59] LABS: Thyroid Stimulating Hormone Reflex 0.494 uIU/mL (0.465-4.68)
[2023-12-11] MEDS: IPRATROPIUM 0.5 MG/ALBUTEROL SULFATE 2.5 MG AMPUL.NEB 3 ML NEBULIZE ×3 (07:18→20:07)
[2023-12-11] MEDS: FLUTICASONE/SALMETEROL 45-21 MCG INHALER 1 PUFF 2 PUFF INHALATION ×2 (07:20→20:07)
[2023-12-11] MEDS: guaiFENesin 12 HR 600 MG TABCR PO ×2 (09:15→21:32)
[2023-12-11] MEDS: PANTOPRAZOLE SOD SESQUIHYDRATE 20 MG TAB PO (09:15)
[2023-12-11] MEDS: MULTIVITAMINS THERAPEUTIC TAB (*BKC) 1 TABLET PO (09:15)
[2023-12-11] MEDS: FOLIC ACID 1 MG TABLET PO (09:15)
[2023-12-11] MEDS: risperiDONE 0.5 MG TABLET PO (09:15)
[2023-12-11] MEDS: FERROUS SULFATE 325 MG TABLET DR PO ×2 (09:15→16:13)
[2023-12-11] MEDS: ATORVASTATIN 40 MG TABLET PO (09:15)
[2023-12-11] MEDS: ASCORBIC ACID 500 MG TABLET PO (09:15)
[2023-12-11] MEDS: DULoxetine HCL 20 MG CAPSULE.DR 40 MG PO (09:15)
[2023-12-11] MEDS: ASPIRIN 81 MG CHEWABLE TABLET PO (09:15)
[2023-12-11] MEDS: hydrOXYzine HCL 25 MG TABLET PO ×4 (09:15→21:33)
[2023-12-11] MEDS: lamoTRIgine 100 MG TABLET PO ×2 (09:15→16:13)
[2023-12-11] MEDS: THIAMINE HCL 100 MG TABLET PO (09:15)
--- NOTE | 2023-12-11 09:58 | PM.IMPN ---
Progress Note: A&P Assessment and Plan (1) Sepsis: Qualifiers: Sepsis acute organ dysfunction status: without acute organ dysfunction Sepsis type: sepsis due to unspecified organism Qualified Code(s): A41.9 - Sepsis, unspecified organism Code(s): A41.9 - Sepsis, unspecified organism Status: Acute Assessment and Plan: - meets SIRS criteria: HR, WBC, hypotension. No hypoxia. - lactic acid 0.7 and procal 1.8 - 30 mL/kg = 1400, given 1L bolus. Post-bolus still appears mildly dry on exam, 2nd bolus ordered -> 150 mL/hour. - suspected source: Pneumonia - started on ceftriaxone and azithromycin on 12/07 - blood cultures drawn on 12/07, follow-up - UA showed 1+ protein and 1+ blood - CXR: Airspace opacity in the left lower lobe - monitor hemodynamic stability and oxygen saturation 12/09/2023: - Patient hypotensive, 90s/60s. Tachycardic into 120s. Given 500 ml bolus. Remains systolic 90s. Started on IV fluids. 12/09: - Patients BP remains stable. She is still tachycardic into the 120s despite a beta sagar trial. 12/10- assuming care- can take orals- will start PO antibiotics- ordered Augmentin and azithromycin - will hold fluids for now to avoid fluid overload (2) Pneumonia: Qualifiers: Laterality: left Lung location: lower lobe of lung Pneumonia type: due to unspecified organism Qualified Code(s): J18.9 - Pneumonia, unspecified organism Code(s): J18.9 - Pneumonia, unspecified organism Status: Suspected Assessment and Plan: - CXR concerning for left lower lobe pneumonia - risk factors and complicating factors: Sepsis, COPD, [facility] resident - started on CAP tx: ceftriaxone and azithromycin - MRSA PCR negative - Viral PCR negative - sputum culture ordered - no current supplemental O2 requirement - supportive care 12/10 can take orals- will start PO antibiotics- ordered Augmentin and azithromycin - vest tehrapy ordered as very congested - continue with breathing treatment, IC, ambulation (3) ITALO (acute kidney injury): Code(s): N17.9 - Acute kidney failure, unspecified Status: Acute Assessment and Plan: - creatinine 1.6 and GFR 32 on admission, baseline creatinine appears to be 1.1-1.4 - BUN/Cr 15/1.3 on am labs - IV fluids - trend renal function - trend electrolytes, correct as needed - avoid nephrotoxic medications - renally dose medications (4) Acute hyponatremia: Code(s): E87.1 - Hypo-osmolality and hyponatremia Status: Acute Assessment and Plan: - Na 127 on admission, now 134 on am labs - add serum osmolality, urine osmolality. urine sodium, protein to creatinine ratio, urine creatinine - trend, started on NS infusion (5) Frequent falls: Code(s): R29.6 - Repeated falls Status: Acute Assessment and Plan: - fall precautions - suspect new weakness combination of PNA and hyponatremia. Abx and NS initiated - consider PT evaluation if weakness does not improve with current treatment plan (6) Anemia: Qualifiers: Anemia type: unspecified type Qualified Code(s): D64.9 - Anemia, unspecified Code(s): D64.9 - Anemia, unspecified Status: Chronic Assessment and Plan: - chronic normocytic anemia. suspect anemia of chronic disease (COPD v CKD or combination thereof) - Iron 21, TIBC 201, % sat 10. Started on iron supplementation - B12 and Folate WNL (7) COPD (chronic obstructive pulmonary disease): Qualifiers: COPD type: unspecified COPD Qualified Code(s): J44.9 - Chronic obstructive pulmonary disease, unspecified Code(s): J44.9 - Chronic obstructive pulmonary disease, unspecified Status: Chronic Assessment and Plan: Chronic, does not appear to be in acute exacerbation. - DuoNebs PRN Plan # tachycardia- will try low dose of metoprol x 1 to see if improved and monitor Diet: Regular GI Prophyl
[2023-12-11] MEDS: AZITHROMYCIN 250 MG TABLET 500 MG PO (10:55)
[2023-12-11] MEDS: AMOXICILLIN/CLAVULANATE K 875-125 MG TAB 1 TABLET PO ×2 (10:55→21:33)
[2023-12-11] MEDS: METOPROLOL TARTRATE INJ 5 MG/5 ML VIAL 2.5 MG IV PUSH (14:03)
[2023-12-11] MEDS: GABAPENTIN 300 MG CAPSULE PO (21:32)
[2023-12-11] MEDS: MELATONIN 5 MG TABLET PO (21:33)
[2023-12-11] MEDS: ACETAMINOPHEN 325 MG TABLET 650 MG PO (21:38)
[2023-12-12] VITALS (19 sets, daily range): BP systolic 114–121; BP diastolic 52–66; PULSE 84–115; RESP 18–20; TEMP 36.2–36.8; O2SAT 95–100
[2023-12-12] MEDS: IPRATROPIUM 0.5 MG/ALBUTEROL SULFATE 2.5 MG AMPUL.NEB 3 ML NEBULIZE ×4 (02:45→20:27)
[2023-12-12] MEDS: ONDANSETRON HCL ODT 4 MG TABLET PO ×3 (03:19→20:36)
[2023-12-12] MEDS: LEVOTHYROXINE SODIUM 50 MCG TABLET PO (05:48)
[2023-12-12 06:36] LABS: Anion Gap 5 mmol/L (4-12); Blood Urea Nitrogen 12 mg/dL (7-17); Carbon Dioxide 22 mmol/L (22-30); Chloride 112 mmol/L (98-107); Potassium 3.9 mmol/L (3.4-5.0); Sodium 139 mmol/L (137-145)
[2023-12-12 06:37] LABS: Alanine Aminotransferase 34 U/L (6-35); Alkaline Phosphatase 99 U/L (38-126); Aspartate Amino Transferase 40 U/L (14-36); Basophils Percent Auto 0.2 % (0.2-1.2); Bilirubin,Total 0.3 mg/dL (0.2-1.3); Calcium 8.7 mg/dL (8.4-10.2); Eosinophils Percent Auto 0.8 % (0-4.4); Estimated CRCL calculation 30 ml/min; Estimated Glomerular Filt Rate 41; Glucose 99 mg/dL (65-110); Hematocrit 26.2 % (37.0-47.0); Hemoglobin 8.5 g/dL (12.0-15.0); Immature Granulocyte Absolute 0.07 K/mm3 (0.00-0.031); Immature Granulocyte Percent A 1.3 % (0-0.5); Lymphocytes Absolute Auto 0.86 K/mm3 (0.9-3.2); Lymphocytes Percent Auto 16.2 % (18.3-44.2); Mean Corpuscular HGB Conc 32.4 g/dl (32-36); Mean Corpuscular Hemoglobin 27.2 pg (26-34); Mean Platelet Volume 9.8 fl (7.4-10.4); Monocytes Absolute Auto 0.9 K/mm3 (0.1-0.6); Monocytes Percent Auto 17.2 % (2.6-8.5); Neutrophils Absolute Auto 3.4 K/mm3 (1.3-6.7); Neutrophils Percent Auto 64.3 % (45.5-73.1); Platelet Count Result 219 k/mm3 (150-375); Red Blood Count 3.12 M/mm3 (4.2-5.4); Red Cell Distribution Width 15.1 % (11.5-14.5); White Blood Count 5.3 K/mm3 (4.5-10.0)
--- NOTE | 2023-12-12 07:23 | P.PNIM_ITS ---
Progress Note: A&P Assessment and Plan (1) Sepsis: Qualifiers: Sepsis acute organ dysfunction status: without acute organ dysfunction Sepsis type: sepsis due to unspecified organism Qualified Code(s): A41.9 - S epsis, unspecified organism Code(s): A41.9 - Sepsis, unspecified organism Status: Acute Assessment and Plan: - meets SIRS criteria: HR, WBC, hypotension. No hypoxia. - lactic acid 0.7 and procal 1.8 - 30 mL/kg = 1400, given 1L bolus. Post-bolus still appears mildly dry on exam, 2nd bolus ordered -> 150 mL/hour. - suspected source: Pneumonia - started on ceftriaxone and azithromycin on 12/07 - blood cultures drawn on 12/07, follow-up - UA showed 1+ protein and 1+ blood - CXR: Airspace opacity in the left lower lobe - monitor hemodynamic stability and oxygen saturation 12/09/2023: - Patient hypotensive, 90s/60s. Tachycardic into 120s. Given 500 ml bolus. Remains systolic 90s. Started on IV fluids. 12/09: - Patients BP remains stable. She is still tachycardic into the 120s despite a beta sagar trial. 12/10- assuming care- can take orals- will start PO antibiotics- ordered Augmentin and azithromycin - will hold fluids for now to avoid fluid overload 12/11- wbc reviewed-wnc, afebrile- continue therapy. feeling better - continue therapy- anticipate discharge home tomorrow if stable overnight. (2) Pneumonia: Qualifiers: Laterality: left Lung location: lower lobe of lung Pneumonia type: due to unspecified organism Qualified Code(s): J18.9 - Pneumonia, unspecified organism Code(s): J18.9 - Pneumonia, unspecified organism Status: Suspected Assessment and Plan: - CXR concerning for left lower lobe pneumonia - risk factors and complicating factors: Sepsis, COPD, long-term resident - started on CAP tx: ceftriaxone and azithromycin - MRSA PCR negative - Viral PCR negative - sputum culture ordered - no current supplemental O2 requirement - supportive care 12/10 can take orals- will start PO antibiotics- ordered Augmentin and azithromycin - vest tehrapy ordered as very congested - continue with breathing treatment, IC, ambulation 12/11- slowly improving- continue (3) ITALO (acute kidney injury): Code(s): N17.9 - Acute kidney failure, unspecified Status: Acute Assessment and Plan: - creatinine 1.6 and GFR 32 on admission, baseline creatinine appears to be 1.1- 1.4 - BUN/Cr 15/1.3 on am labs - IV fluids - trend renal function - trend electrolytes, correct as needed - avoid nephrotoxic medications - renally dose medications 12/15 around baseline now- monitor (4) Acute hyponatremia: Code(s): E87.1 - Hypo-osmolality and hyponatremia Status: Acute Assessment and Plan: - Na 127 on admission, now 134 on am labs - add serum osmolality, urine osmolality. urine sodium, protein to creatinine ratio, urine creatinine - trend, started on NS infusion (5) Frequent falls: Code(s): R29.6 - Repeated falls Status: Acute Assessment and Plan: - fall precautions - suspect new weakness combination of PNA and hyponatremia. Abx and NS initiated - consider PT evaluation if weakness does not improve with current treatment plan (6) Anemia: Qualifiers: Anemia type: unspecified type Qualified Code(s): D64.9 - Anemia, unspecified Code(s): D64.9 - Anemia, unspecified Status: Chronic Assessment and Plan: - chronic normocytic anemia. 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
[2023-12-12] MEDS: FLUTICASONE/SALMETEROL 45-21 MCG INHALER 1 PUFF 2 PUFF INHALATION ×2 (08:06→20:27)
[2023-12-12] MEDS: ACETAMINOPHEN 325 MG TABLET 650 MG PO ×2 (08:45→20:35)
[2023-12-12] MEDS: MULTIVITAMINS THERAPEUTIC TAB (*BKC) 1 TABLET PO (08:45)
[2023-12-12] MEDS: PANTOPRAZOLE SOD SESQUIHYDRATE 20 MG TAB PO (08:45)
[2023-12-12] MEDS: FERROUS SULFATE 325 MG TABLET DR PO ×2 (08:45→16:20)
[2023-12-12] MEDS: ASCORBIC ACID 500 MG TABLET PO (08:45)
[2023-12-12] MEDS: guaiFENesin 12 HR 600 MG TABCR PO ×2 (08:46→20:35)
[2023-12-12] MEDS: ASPIRIN 81 MG CHEWABLE TABLET PO (08:46)
[2023-12-12] MEDS: risperiDONE 0.5 MG TABLET PO (08:46)
[2023-12-12] MEDS: lamoTRIgine 100 MG TABLET PO ×2 (08:46→16:20)
[2023-12-12] MEDS: DULoxetine HCL 20 MG CAPSULE.DR 40 MG PO (08:46)
[2023-12-12] MEDS: FOLIC ACID 1 MG TABLET PO (08:46)
[2023-12-12] MEDS: AMOXICILLIN/CLAVULANATE K 875-125 MG TAB 1 TABLET PO ×2 (08:46→20:35)
[2023-12-12] MEDS: THIAMINE HCL 100 MG TABLET PO (08:46)
[2023-12-12] MEDS: ATORVASTATIN 40 MG TABLET PO (08:46)
[2023-12-12] MEDS: hydrOXYzine HCL 25 MG TABLET PO ×4 (08:46→20:36)
[2023-12-12] MEDS: AZITHROMYCIN 250 MG TABLET 500 MG PO (08:46)
[2023-12-12] MEDS: MELATONIN 5 MG TABLET PO (20:35)
[2023-12-12] MEDS: GABAPENTIN 300 MG CAPSULE PO (20:36)
[2023-12-13] VITALS (9 sets, daily range): BP systolic 122–124; BP diastolic 52–68; PULSE 90–132; RESP 18; TEMP 36.4–36.7; O2SAT 94–97
[2023-12-13 06:02] LABS: Basophils Percent Auto 0.2 % (0.2-1.2); Eosinophils Absolute Auto 0.1 K/mm3 (0-0.3); Eosinophils Percent Auto 1.8 % (0-4.4); Hematocrit 25.1 % (37.0-47.0); Hemoglobin 8.2 g/dL (12.0-15.0); Immature Granulocyte Absolute 0.09 K/mm3 (0.00-0.031); Lymphocytes Absolute Auto 0.96 K/mm3 (0.9-3.2); Mean Corpuscular HGB Conc 32.7 g/dl (32-36); Mean Corpuscular Hemoglobin 27.5 pg (26-34); Mean Corpuscular Volume 84.2 fl (80-100); Mean Platelet Volume 9.9 fl (7.4-10.4); Monocytes Absolute Auto 0.7 K/mm3 (0.1-0.6); Monocytes Percent Auto 15.8 % (2.6-8.5); Neutrophils Absolute Auto 2.7 K/mm3 (1.3-6.7); Neutrophils Percent Auto 59.2 % (45.5-73.1); Platelet Count Result 233 k/mm3 (150-375); Red Blood Count 2.98 M/mm3 (4.2-5.4); Red Cell Distribution Width 14.7 % (11.5-14.5); White Blood Count 4.6 K/mm3 (4.5-10.0)
[2023-12-13 06:13] LABS: Alanine Aminotransferase 30 U/L (6-35); Albumin Level 2.9 g/dL (3.5-5.1); Alkaline Phosphatase 91 U/L (38-126); Anion Gap 7 mmol/L (4-12); Aspartate Amino Transferase 32 U/L (14-36); Bilirubin,Total 0.2 mg/dL (0.2-1.3); Blood Urea Nitrogen 17 mg/dL (7-17); Calcium 8.5 mg/dL (8.4-10.2); Carbon Dioxide 18 mmol/L (22-30); Chloride 113 mmol/L (98-107); Estimated CRCL calculation 28 ml/min; Estimated Glomerular Filt Rate 38; Glucose 99 mg/dL (65-110); Potassium 4.1 mmol/L (3.4-5.0); Sodium 138 mmol/L (137-145)
[2023-12-13] MEDS: LEVOTHYROXINE SODIUM 50 MCG TABLET PO (06:19)
[2023-12-13] MEDS: ONDANSETRON HCL ODT 4 MG TABLET PO ×2 (06:19→13:57)
[2023-12-13] MEDS: FLUTICASONE/SALMETEROL 45-21 MCG INHALER 1 PUFF 2 PUFF INHALATION (07:51)
[2023-12-13] MEDS: IPRATROPIUM 0.5 MG/ALBUTEROL SULFATE 2.5 MG AMPUL.NEB 3 ML NEBULIZE ×2 (07:51→13:52)
[2023-12-13] MEDS: AZITHROMYCIN 250 MG TABLET 500 MG PO (08:24)
[2023-12-13] MEDS: THIAMINE HCL 100 MG TABLET PO (08:24)
[2023-12-13] MEDS: PANTOPRAZOLE SOD SESQUIHYDRATE 20 MG TAB PO (08:24)
[2023-12-13] MEDS: ASCORBIC ACID 500 MG TABLET PO (08:24)
[2023-12-13] MEDS: ATORVASTATIN 40 MG TABLET PO (08:25)
[2023-12-13] MEDS: guaiFENesin 12 HR 600 MG TABCR PO (08:25)
[2023-12-13] MEDS: hydrOXYzine HCL 25 MG TABLET PO ×2 (08:25→13:57)
[2023-12-13] MEDS: FERROUS SULFATE 325 MG TABLET DR PO (08:25)
[2023-12-13] MEDS: lamoTRIgine 100 MG TABLET PO (08:25)
[2023-12-13] MEDS: AMOXICILLIN/CLAVULANATE K 875-125 MG TAB 1 TABLET PO (08:25)
[2023-12-13] MEDS: MULTIVITAMINS THERAPEUTIC TAB (*BKC) 1 TABLET PO (08:25)
[2023-12-13] MEDS: risperiDONE 0.5 MG TABLET PO (08:25)
[2023-12-13] MEDS: FOLIC ACID 1 MG TABLET PO (08:25)
[2023-12-13] MEDS: DULoxetine HCL 20 MG CAPSULE.DR 40 MG PO (08:25)
[2023-12-13] MEDS: ASPIRIN 81 MG CHEWABLE TABLET PO (08:25)
[2023-12-13] MEDS: ONDANSETRON INJ 4 MG/2 ML VIAL IV PUSH (08:26)
--- NOTE | 2023-12-13 12:17 | PM.DS ---
DS: Admitting Diagnosis Discharge Date 12/12 Admitting Diagnosis sob DS: Discharge Diagnosis Discharge Diagnosis (1) Sepsis: Qualifiers: Sepsis acute organ dysfunction status: without acute organ dysfunction Sepsis type: sepsis due to unspecified organism Qualified Code(s): A41.9 - Sepsis, unspecified organism Code(s): A41.9 - Sepsis, unspecified organism Status: Acute Assessment and Plan: - meets SIRS criteria: HR, WBC, hypotension. No hypoxia. - lactic acid 0.7 and procal 1.8 - 30 mL/kg = 1400, given 1L bolus. Post-bolus still appears mildly dry on exam, 2nd bolus ordered -> 150 mL/hour. - suspected source: Pneumonia - started on ceftriaxone and azithromycin on 12/07 - blood cultures drawn on 12/07, follow-up - UA showed 1+ protein and 1+ blood - CXR: Airspace opacity in the left lower lobe - monitor hemodynamic stability and oxygen saturation 12/09/2023: - Patient hypotensive, 90s/60s. Tachycardic into 120s. Given 500 ml bolus. Remains systolic 90s. Started on IV fluids. 12/09: - Patients BP remains stable. She is still tachycardic into the 120s despite a beta sagar trial. 12/10- assuming care- can take orals- will start PO antibiotics- ordered Augmentin and azithromycin - will hold fluids for now to avoid fluid overload 12/11- wbc reviewed-wnc, afebrile- continue therapy. feeling better - continue therapy- anticipate discharge home tomorrow if stable overnight. (2) Pneumonia: Qualifiers: Laterality: left Lung location: lower lobe of lung Pneumonia type: due to unspecified organism Qualified Code(s): J18.9 - Pneumonia, unspecified organism Code(s): J18.9 - Pneumonia, unspecified organism Status: Suspected Assessment and Plan: - CXR concerning for left lower lobe pneumonia - risk factors and complicating factors: Sepsis, COPD, [facility] resident - started on CAP tx: ceftriaxone and azithromycin - MRSA PCR negative - Viral PCR negative - sputum culture ordered - no current supplemental O2 requirement - supportive care 12/10 can take orals- will start PO antibiotics- ordered Augmentin and azithromycin - vest tehrapy ordered as very congested - continue with breathing treatment, IC, ambulation 12/11- slowly improving- continue (3) ITALO (acute kidney injury): Code(s): N17.9 - Acute kidney failure, unspecified Status: Acute Assessment and Plan: - creatinine 1.6 and GFR 32 on admission, baseline creatinine appears to be 1.1-1.4 - BUN/Cr 15/1.3 on am labs - IV fluids - trend renal function - trend electrolytes, correct as needed - avoid nephrotoxic medications - renally dose medications 12/15 around baseline now- monitor (4) Acute hyponatremia: Code(s): E87.1 - Hypo-osmolality and hyponatremia Status: Acute Assessment and Plan: - Na 127 on admission, now 134 on am labs - add serum osmolality, urine osmolality. urine sodium, protein to creatinine ratio, urine creatinine - trend, started on NS infusion (5) Frequent falls: Code(s): R29.6 - Repeated falls Status: Acute Assessment and Plan: - fall precautions - suspect new weakness combination of PNA and hyponatremia. Abx and NS initiated - consider PT evaluation if weakness does not improve with current treatment plan (6) Anemia: Qualifiers: Anemia type: unspecified type Qualified Code(s): D64.9 - Anemia, unspecified Code(s): D64.9 - Anemia, unspecified Status: Chronic Assessment and Plan: - chronic normocytic anemia. suspect anemia of chronic disease (COPD v CKD or combination thereof) - Iron 21, TIBC 201, % sat 10. Started on iron supplementation - B12 and Folate WNL (7) COPD (chronic obstructive pulmonary disease): Qualifiers: COPD type: unspecified COPD Qualified Code(s): J44.9 - Chronic obstructive pulmonary disease, unspecified Code(s): J44.9 - Chronic
== END 2023-12-13 15:45 | DRG 720 ==
LOC: ANHED 10:54 → ANH3MED 18:10
PROVIDERS: Emergency Medicine; Student in an Organized Health Care Education/Training Program; Admitting Provider Internal Medicine; Emergency Provider Emergency Medicine; PCP Internal Medicine; Visit Provider Nurse Practitioner
DX: A41.9 Sepsis, unspecified organism (principal); J18.9 Pneumonia, unspecified organism; N17.9 Acute kidney failure, unspecified; E87.1 Hypo-osmolality and hyponatremia; R29.6 Repeated falls; D63.1 Anemia in chronic kidney disease; J44.0 Chronic obstructive pulmonary disease with (acute) lower respiratory infection; F60.3 Borderline personality disorder; F41.1 Generalized anxiety disorder; Z20.822 Contact with and (suspected) exposure to COVID-19; R00.0 Tachycardia, unspecified; K58.9 Irritable bowel syndrome, unspecified; E78.5 Hyperlipidemia, unspecified; E03.9 Hypothyroidism, unspecified; F20.0 Paranoid schizophrenia; F17.200 Nicotine dependence, unspecified, uncomplicated; Z90.49 Acquired absence of other specified parts of digestive tract
CPT/HCPCS: 36415; 70450; 71046; 80053; 81001; 82570; 82607; 82746; 82948; 83540; 83550; 83605; 83930; 83935; 84145; 84156; 84300; 84439; 84443; 84480; 85025; 87040; 87637; 87641; 93005; 94640; 94669; 96360; 96361; 97110; 97161; 97165; 97530; 97535; 99285; A9270; J0456; J0696; J2405; J7030; J7040